=== PATIENT | female | born 1945 | race African-American/Black ===

== ENCOUNTER 2016-10-12 11:04 | Inpatient (IN) | payer MEDICARE ==
[2016-10-12] VITALS (7 sets, daily range): BP systolic 109–129; BP diastolic 70–87; PULSE 78–82; RESP 18–20; TEMP 97.6–97.9; O2SAT 96–98
[~2016-10-12] VITALS: Ht 167.6 cm; Wt 59.6 kg
[~2016-10-12 11:04] MED LIST: APIX5 PO; ASPI81 PO; BUME1TAB PO; CARV6.252 PO; CLOP75 PO; DIGO0.12 PO; KCL20 PO; LORA1TAB PO; SIMV40TA PO
--- NOTE | 2016-10-12 13:01 | PD ---
HPI Chief Complaint: Respiratory Symptoms Time Seen by Provider: 12:56 (Uzair Hawley) Time Seen by Provider: 12:42 (Bucky Obrien MD) Travel History International Travel<30 days: No Contact w/Intl Traveler<30days: No Traveled to known affect area: No (Uzair Hawley) International Travel<30 days: No Contact w/Intl Traveler<30days: No Traveled to known affect area: No (Bucky Obrien MD) History of Present Illness HPI 70-year-old female with a history of heart failure, COPD, previous LBBB that presents to the ED for evaluation of shortness of breath. Per patient about a week ago she developed a cough and cold like symptoms that went away. At that time patient was seen by her doctor and everything seemed to be better. Patient went again to see her primary care doctor today because after getting over the cold she developed shortness of breath for about a week. Per patient she has no inhalers and she does have a history of COPD. She states that she feels weak and tired. She states having some discomfort in her epigastric area as well as the left chest. She hasn't only to aspirin. She does take blood thinners for her heart. She states that she went to see Dr. Zamorano her PCP today who told her to come here to get evaluated. She denies any recent travel. Patient states compliance with her medications. She does have a history of hypertension. She states that the pain and discomfort as 2 out of 10 but her main concern is the shortness of breath. She states that even laying causes the shortness of breath. Per patient she feels like she has no energy. Denies any nausea or vomiting. She does state having some cough but no congestion. No ear pain. No sore throat. (Uzair Hawley) HPI This 12-year-old female who presents today with platelets of shortness breath. Patient was also seen by her primary care physician today who sent her here for further evaluation. The patient denies any chest pain chest pressure. She states she's felt she's had cold and flu symptoms. (Bucky Obrien MD) PFSH Past Medical History Hx Anticoagulant Therapy: Yes Asthma: Yes Blood Disorders: No Heart Rhythm Problems: Yes Cancer: No Cardiovascular Problems: Yes (2014) High Cholesterol: Yes Chemotherapy: No Chest Pain: No Congestive Heart Failure: Yes COPD: Yes Coronary Artery Disease: Yes Diabetes: Yes Diminished Hearing: No Endocrine: Yes Gastrointestinal Disorders: No Genitourinary: No Hypertension: Yes Implanted Vascular Access Dvce: Yes Musculoskeletal: No Neurologic: No Psychiatric: No Reproductive: Yes (BLEEDING) Respiratory: Yes (COPD, ASTHMA) Immunizations Current: Yes Radiation Therapy: No Sickle Cell Disease: No Sleep Apnea: No (Uzair Hawley) Past Surgical History Abdominal Surgery: Yes (cholecystectomy) AICD: Yes Appendectomy: Yes Arteriovenous Shunt: No Cardiac Surgery: Yes (DEFIBRILLATOR) Cholecystectomy: Yes Genitourinary Surgery: Yes (hysterectomy) Gynecologic Surgery: Yes (FLORINDA) Hysterectomy: Yes Insulin Pump: No Joint Replacement: No Pacemaker: Yes Thoracic Surgery: No Other Surgery: Yes (Uzair Hawley) Social History Alcohol Use: No Tobacco Use: No Substance Use: No (Uzair Hawley) Allergies-Medications (Allergen,Severity, Reaction): Coded Allergies: Aspirin (Verified Allergy, Mild, NAUSEA/VOMITING, 03/05/16) Reported Meds & Prescriptions Reported Meds & Active Scripts Active Reported Vitamin C (Ascorbic Acid) 500 Mg Tab 500 Mg PO DAILY Tizanidine (Tizanidine HCl) 4 Mg Cap 4 Mg PO BID PRN Restoril (Temazepam) 30 Mg Cap 30 Mg PO HS PRN Zocor (Simvastatin) 40 Mg Tab 40 Mg PO DAILY Multi Vitamin (Multiple Vitamin) 1 Tab Tab 1 Tab PO DAILY Metformin (Metformin HCl) 500 Mg Tab 500 Mg PO BID With meals Losartan (Losartan Potassium) 25 Mg Tab 25 Mg PO DAILY Iron (Ferrous Sulfate) 325 Mg Tab 325 Mg PO DAILY Take Glipizide 5 Mg Tab 5 Mg PO BID Take 30 minutes before a meal Eliquis (Apixaban) 5 Mg Tab 5 Mg PO BID Lanoxin (Digoxin) 0.125 Mg Tab 0.125 Mg PO DAILY Plavix (Clopidogrel Bisulfate) 75 Mg Tab 75 Mg PO DAILY Coreg (Carvedilol) 6.25 Mg Tab 6.25 Mg PO BID Bumetanide 1 Mg Tab 1 Mg PO BID Amiodarone (Amiodarone HCl) 200 Mg Tab 200 Mg PO DAILY (Bucky Obrien MD) Review of Systems General / Constitutional: No: Fever, Chills, Weight Gain, Weight Loss, Other Eyes: No: Diploplia, Blurred Vision, Photophobia, Drainage, Redness, Foreign Body Sensation, Pain, Tearing, Blind Spots, Visual changes, Blindness, Other HENT: No: Headaches, Vertigo, Lightheadedness, Sore Throat, Rhinitis, Rhinorrhea, Congestion, Nosebleed, Neck Stiffness, Neck Pain, Masses, Gingival Bleeding, Dental Difficulties, Ear Discharge, Earache, Other Cardiovascular: Positive: Chest Pain or Discomfort, No: Palpitations, Irregular Rhythm, Tachycardia, Diaphoresis, Syncope, Dyspnea on exertion, Varicosities, Edema, Cyanosis, Varicosities, Phlebitis, Claudication, Other Respiratory: Positive: Cough, Shortness of Breath, No: Wheezing, Sneezing, Orthopnea, Hemoptysis, Stridor, Night Sweats, Pleuritic Pain, Other Gastrointestinal: Positive: Abdominal Pain Genitourinary: No: Urgency, Frequency, Dysuria, Nocturia, Hematuria, Decreased Urinary Output, Oliguria, Hesitancy, Dribbling, Incontinence, Pelvic Pain, Flank Pain, Dyspareunia, Discharge, Dysmenorrhea, Menorrhagia, Metorrhagia, Vaginal Bleeding, Other Musculoskeletal: No: Myalgias, Arthralgias, Limited ROM, Weakness, Cramping, Edema, Pain, Atrophy, Other Skin: No Rash, No Itching, No Dryness, No Lumps, No Hives, No Change in Pigmentation, No Change in nails, No Alopecia, No Lesions, No Breast Lumps, No Breast Tenderness, No Breast Swelling, No Other Neurologic: No: Weakness, Dizziness, Syncope, Focal Abnormalities, Coordination Problem, Tremor, Ataxia, Headache, Change in Mentation, Slurred Speech, Paresthesia, Incontinence, Seizures, Sensory Disturbance, Other Psychiatric: No: Anxiety, Depression, Suicidal Ideations, Disorder of Thought, Mood Disorder, Substance Abuse, Homicidal Ideation, Other Endocrine: No: Heat Intolerance, Cold Intolerance, Polyuria, Polydipsia, Other Hematologic/Lymphatic: No: Easy Bruising, Lymph Node Enlargement, Other (Uzair Hawley) Physical Exam Narrative GENERAL: Well-nourished, well-developed patient in no apparent distress. SKIN: Warm and dry. HEAD: Atraumatic. Normocephalic. EYES: Pupils equal and round reactive to light and accommodation. No scleral icterus. No injection or drainage. ENT: No nasal bleeding or discharge. Mucous membranes pink and moist. TMs are clear with no sign of infection or perforation. No mastoid tenderness. Ear canals are intact bilaterally. No lymphadenopathy. Nostril mucosa is red and moist with clear mucus noted. No sinus tenderness to palpation noted. Tonsils are not enlarged or swollen. No ulvua Deviation. Tongue is midline. NECK: Trachea midline. No JVD. No meningeal signs noted CARDIOVASCULAR: Regular rate and rhythm. RESPIRATORY: No accessory muscle use. Clear to auscultation. Breath sounds equal bilaterally. GASTROINTESTINAL: Abdomen soft, non-tender, nondistended. Hepatic and splenic margins not palpable. MUSCULOSKELETAL: Extremities without clubbing, cyanosis, or edema. No obvious deformities. NEUROLOGICAL: Awake and alert. No obvious cranial nerve deficits. Motor grossly within normal limits. Five out of 5 muscle strength in the arms and legs. Normal speech. PSYCHIATRIC: Appropriate mood and affect; insight and judgment normal. (Uzair Hawley) Data Data Orders Electrocardiogram (10/12/16 12:41) Complete Blood Count With Diff (10/12/16 12:41) Comprehensive Metabolic Panel (10/12/16 12:41) Ckmb (Isoenzyme) Profile (10/12/16 12:41) Troponin I (10/12/16 12:41) B-Type Natriuretic Peptide (10/12/16 12:41) Prothrombin Time / Inr (Pt) (10/12/16 12:41) Act Partial Throm Time (Ptt) (10/12/16 12:41) Blood Culture (10/12/16 12:41) Urinalysis - C+S If Indicated (10/12/16 12:41) Digoxin (10/12/16 12:41) Chest, Single Ap (10/12/16 12:41) Iv Access Insert/Monitor (10/12/16 12:41) Ecg Monitoring (10/12/16 12:41) Oximetry (10/12/16 12:41) Lipase (10/12/16 12:41) Admit Order (Ed Use Only) (10/12/16 15:24) (Bucky Obrien MD) Labs Laboratory Tests Test 10/12/16 10/12/16 10/12/16 12:55 13:05 14:50 White Blood Count 8.1 TH/MM3 Red Blood Count 4.70 MIL/MM3 Hemoglobin 13.6 GM/DL Hematocrit 40.7 % Mean Corpuscular Volume 86.7 FL Mean Corpuscular Hemoglobin 29.0 PG Mean Corpuscular Hemoglobin 33.4 % Concent Red Cell Distribution Width 16.3 % Platelet Count 321 TH/MM3 Mean Platelet Volume 7.8 FL Neutrophils (%) (Auto) 59.1 % Lymphocytes (%) (Auto) 28.9 % Monocytes (%) (Auto) 8.6 % Eosinophils (%) (Auto) 2.3 % Basophils (%) (Auto) 1.1 % Neutrophils # (Auto) 4.8 TH/MM3 Lymphocytes # (Auto) 2.3 TH/MM3 Monocytes # (Auto) 0.7 TH/MM3 Eosinophils # (Auto) 0.2 TH/MM3 Basophils # (Auto) 0.1 TH/MM3 CBC Comment DIFF FINAL Differential Comment Prothrombin Time 14.2 SEC Prothromb Time International 1.3 RATIO Ratio Activated Partial 25.0 SEC Thromboplast Time B-Type Natriuretic Peptide 973 PG/ML Sodium Level 140 MEQ/L Potassium Level 3.4 MEQ/L Chloride Level 103 MEQ/L Carbon Dioxide Level 27.2 MEQ/L Anion Gap 10 MEQ/L Blood Urea Nitrogen 23 MG/DL Creatinine 1.33 MG/DL Estimat Glomerular Filtration 48 ML/MIN Rate Random Glucose 92 MG/DL Calcium Level 9.5 MG/DL Total Bilirubin 0.8 MG/DL Aspartate Amino Transf 15 U/L (AST/SGOT) Alanine Aminotransferase 15 U/L (ALT/SGPT) Alkaline Phosphatase 57 U/L Total Creatine Kinase 81 U/L Troponin I 0.92 NG/ML Total Protein 8.0 GM/DL Albumin 3.7 GM/DL Lipase 100 U/L Digoxin Level 1.3 NG/ML Urine Color YELLOW Urine Turbidity CLEAR Urine pH 6.5 Urine Specific [place] 1.008 Urine Protein 30 mg/dL Urine Glucose (UA) NEG mg/dL Urine Ketones NEG mg/dL Urine Occult Blood NEG Urine Nitrite NEG Urine Bilirubin NEG Urine Urobilinogen LESS THAN 2.0 MG/DL Urine Leukocyte Esterase NEG Urine RBC LESS THAN 1 /hpf Urine WBC LESS THAN 1 /hpf Urine Squamous Epithelial <1 /hpf Cells Urine Bacteria RARE /hpf Urine Hyaline Casts 10 /lpf Urine Mucus FEW /lpf Microscopic Urinalysis Comment CULT NOT INDICATED (Uzair Hawley) [facility] Medical Decision Making Medical Screen Exam Complete: Yes Emergency Medical Condition: Yes Medical Record Reviewed: Yes Interpretation(s) CBC & BMP Diagram 10/12/16 12:55 10/12/16 13:05 Troponin of 0.98 EKG show no sign of acute ischemic changes but known LBBB. LFTS WNL Coags WNL Differential Diagnosis Chest pain versus ACS versus kidney injury versus kidney disease versus COPD versus and STEMI versus CHF versus generalized weakness Narrative Course 70-year-old female that presents to the ED for evaluation of shortness of breath. Patient was properly examined and was found to have signs and symptoms consistent with appears to be shortness of breath. Unclear etiology at this time. She does have significant history for multiple illnesses. Recommendation of times for labs and imaging. Patient is agreeable with this. On my exam patient does not appear to have any wheezing or rales on exam. Her vitals appears to be within normal limits. Patient's initial EKG did show what appears to be an LBBB but she did brought Paper from her doctor's office that states that she's had an LBBB in the past as one of her diagnoses. Labs and imaging showed positive troponin as well as BNP higher than 500. At this time this appears to be cardiac in nature. Case was discussed in my attending who recommends speaking with medical affairs manager. Dr. Olson for cardiology for further health care recommends at the time nothing that he will come here and see the patient himself and then evaluate from there. I spoke with Dr. Mariano who agrees to admission to the [facility]. (Uzair Hawley) Medical Screen Exam Complete: Yes Emergency Medical Condition: Yes Differential Diagnosis CHF versus pneumonia versus upper respiratory infection versus ACS Narrative Course She was seen with Francisco Hawley PA-C. The patient comes in with shortness of breath. The patient was sent here by her primary care physician. Please note that her troponin was elevated at 0.95. Chest x-ray showed congestive heart failure. The patient was discussed with Dr. Huff, for healthcare hospice , who agreed to admit the patient to his service. Patient was also discussed with Dr. Akshat Olson who is gracious enough to come down and evaluate the patient. At this point the question is whether or not she had a non-ST elevation HI versus elevated troponin secondary to her congestive heart failure. Further evaluation and workup per admitting service. I, Dr. Obrien, have reviewed the advance practice practitioner's documentation and am in agreement, met with the patient face to face, made the diagnosis, and the medical decision making was done by me. *My assessment and Findings: Non-ST elevation myocardial infarction. Congestive heart failure. (Bucky Obrien MD) Procedures EKG Prior to Arrival: No (Uzair Hawley) Diagnosis Primary Impression: NSTEMI (non-ST elevated myocardial infarction) Additional Impression: Congestive heart failure Qualified Code: I50.23 - Acute on chronic systolic congestive heart failure Admitting Information Admitting Physician Requests: Admit (Uzair Hawley) Uzair Hawley Oct 12, 2016 13:01 Bucky Obrien MD Oct 17, 2016 08:24
[2016-10-12 13:25] LABS: AUTOMATED NEUTROPHIL # 4.8 TH/MM3 (1.8-7.7); BASOPHIL # 0.1 TH/MM3 (0-0.2); BASOPHIL % 1.1 % (0.0-2.0); EOSINOPHIL # 0.2 TH/MM3 (0-0.4); EOSINOPHIL % 2.3 % (0.0-4.0); HEMATOCRIT 40.7 % (35.0-46.0); HEMO FLAGS DIFF FINAL; LYMPH % 28.9 % (9.0-44.0); LYMPHOCYTE # 2.3 TH/MM3 (1.0-4.8); MEAN CELL VOLUME 86.7 FL (80.0-100.0); MEAN CORPUSCULAR HGB CONC 33.4 % (32.0-36.0); MONO % 8.6 % (0.0-8.0); NEUT % 59.1 % (16.0-70.0); PLATELET COUNT 321 TH/MM3 (150-450); RED CELL DISTRIBUTION WIDTH 16.3 % (11.6-17.2); WHITE BLOOD COUNT 8.1 TH/MM3 (4.0-11.0)
[2016-10-12 13:33] LABS: INTERNATIONAL NORMALIZED RATIO 1.3 RATIO; PROTHROMBIN TIME - PATIENT 14.2 SEC (9.8-11.6)
[2016-10-12] MEDS ORDERED: CARV6.25 PO (14:14)
[2016-10-12] MEDS ORDERED: METF500T PO (14:14)
[2016-10-12] MEDS ORDERED: VITA500T PO (14:14)
[2016-10-12] MEDS ORDERED: REST30CA PO (14:14)
[2016-10-12] MEDS ORDERED: BUME1TAB PO (14:14)
[2016-10-12] MEDS ORDERED: GLIP5TAB8 PO (14:14)
[2016-10-12] MEDS ORDERED: TIZA4CAP3 PO (14:14)
[2016-10-12] MEDS ORDERED: AMIO200T PO (14:14)
[2016-10-12] MEDS ORDERED: LANO0.1212 PO (14:14)
[2016-10-12] MEDS ORDERED: FERR1TAB36 PO (14:14)
[2016-10-12] MEDS ORDERED: LOSA25TA PO (14:14)
[2016-10-12] MEDS ORDERED: MULT-135 PO (14:14)
[2016-10-12] MEDS ORDERED: PLAV75TA29 PO (14:14)
[2016-10-12] MEDS ORDERED: APIX5TAB PO (14:14)
[2016-10-12] MEDS ORDERED: ZOCO40TA PO (14:14)
[2016-10-12 14:32] LABS: ANION GAP 10 MEQ/L (5-15); AST (GOT) 15 U/L (15-37); BICARBONATE 27.2 MEQ/L (21.0-32.0); BLOOD UREA NITROGEN 23 MG/DL (7-18); CHLORIDE 103 MEQ/L (98-107); GLOMERULAR FILTRATION RATE 48 ML/MIN (>89); POTASSIUM 3.4 MEQ/L (3.5-5.1); SODIUM (NA) 140 MEQ/L (136-145)
--- NOTE | 2016-10-12 14:35 | RADRPT ---
EXAM DATE/TIME: 10/12/2016 13:16 [place] COMPARISON: CHEST PA & LAT, December 15, 2015, 19:44. CHEST SINGLE AP, May 28, 2015, 22:09. INDICATIONS: Short of breath. Chest discomfort. MEDICAL HISTORY: Chronic obstructive pulmonary disease. Asthma. SURGICAL HISTORY: Pacemaker. ENCOUNTER: Initial ACUITY: 1 day PAIN SCORE: 1/10 LOCATION: Bilateral chest FINDINGS: The heart remains enlarged with prominence of the left atrial appendage. A left subclavian dual lead pacemaker has its tips in the right atrium and the right ventricle. There is no pneumothorax. The pulmonary vascular pattern is normal. The lungs are clear. CONCLUSION: 1. Stable marked enlargement of the heart with prominence of the left atrial appendage. 2. No acute focal pulmonary infiltrate or pulmonary vascular congestion. Javier Hickey MD on October 12, 2016 at 14:17 Board Certified Radiologist. This report was verified electronically.
[2016-10-12 14:47] LABS: ALKALINE PHOSPHATASE 57 U/L (45-117); ALT (GPT) 15 U/L (10-53); DIGOXIN 1.3 NG/ML (0.8-2.0); TOTAL BILIRUBIN ADULT 0.8 MG/DL (0.2-1.0)
[2016-10-12 15:00] LABS: CREATINE KINASE 81 U/L (26-192)
[2016-10-12 15:19] LABS: BACTERIA, URINE RARE /hpf; BLOOD, URINE NEG (NEG); COMMENT (UR) CULT NOT INDICATED; CULTURE IF INDICATED CULT NOT INDICATED; GLUCOSE,URINE NEG (NEG); HYALINE CAST, URINE 10 /lpf (RARE); KETONE, URINE NEG (NEG); MUCUS URINE FEW /lpf (OCC); NITRITE,URINE NEG (NEG); PH, URINE 6.5 (5.0-8.5); SQUAMOUS EPITHELIAL CELL URINE <1 /hpf (0-5); URINE COLOR YELLOW (YELLW/STRAW)
--- NOTE | 2016-10-12 18:10 | HHI.HP ---
HPI Service [facility] Hospitalists Primary Care Physician Non-Staff Admission Diagnosis NSTEMI, CHF Travel History International Travel<30 Days: No Contact w/Intl Traveler <30 Da: No Traveled to Known Affected Are: No History of Present Illness Pt is 70 yo with cad, chf, dm2, ckd 3, copd presents with general weakness/ fatigue and some sob. Apparently had recent cold and followed by her pcp. When she had persistent sx' s was referred to ED today. Her troponin was elevated and cardiology consulted from ED and pt admitted for nstemi. pt denies any cp presently and is comfortably with family at bedside. denies any diaphoresis or n/v. Review of Systems Other weak/fatigued no energy Past Family Social History Past Medical History cad bivaicd LBBB chf. systolic. echo 12/07. ef 20-25% htn hyperlipidemia dm 2 ckd 3 afib [place] appe hysterectomy Reported Medications Vitamin C (Ascorbic Acid) 500 Mg Tab 500 Mg PO DAILY Tizanidine (Tizanidine HCl) 4 Mg Cap 4 Mg PO BID PRN Restoril (Temazepam) 30 Mg Cap 30 Mg PO HS PRN Zocor (Simvastatin) 40 Mg Tab 40 Mg PO DAILY Multi Vitamin (Multiple Vitamin) 1 Tab Tab 1 Tab PO DAILY Metformin (Metformin HCl) 500 Mg Tab 500 Mg PO BID With meals Losartan (Losartan Potassium) 25 Mg Tab 25 Mg PO DAILY Iron (Ferrous Sulfate) 325 Mg Tab 325 Mg PO DAILY Take Glipizide 5 Mg Tab 5 Mg PO BID Take 30 minutes before a meal Eliquis (Apixaban) 5 Mg Tab 5 Mg PO BID Lanoxin (Digoxin) 0.125 Mg Tab 0.125 Mg PO DAILY Plavix (Clopidogrel Bisulfate) 75 Mg Tab 75 Mg PO DAILY Coreg (Carvedilol) 6.25 Mg Tab 6.25 Mg PO BID Bumetanide 1 Mg Tab 1 Mg PO BID Amiodarone (Amiodarone HCl) 200 Mg Tab 200 Mg PO DAILY Allergies: Coded Allergies: Aspirin (Verified Allergy, Mild, NAUSEA/VOMITING, 03/05/16) Family History nc Social History no tob/etoh Physical Exam Vital Signs heart reg lung cta abd s/nt ext no edema Vital Signs Date Time Temp Pulse Resp B/P Pulse Ox O2 Delivery O2 Flow Rate FiO2 10/12/16 15:00 78 18 118/74 97 Room Air 10/12/16 13:27 69 22 95 Room Air 10/12/16 13:26 98 Room Air 10/12/16 13:00 80 18 109/70 97 Room Air 10/12/16 11:05 97.6 82 18 123/76 97 Room Air Laboratory Laboratory Tests Test 10/12/16 10/12/16 10/12/16 12:55 13:05 14:50 White Blood Count 8.1 Red Blood Count 4.70 Hemoglobin 13.6 Hematocrit 40.7 Mean Corpuscular Volume 86.7 Mean Corpuscular Hemoglobin 29.0 Mean Corpuscular Hemoglobin 33.4 Concent Red Cell Distribution Width 16.3 Platelet Count 321 Mean Platelet Volume 7.8 Neutrophils (%) (Auto) 59.1 Lymphocytes (%) (Auto) 28.9 Monocytes (%) (Auto) 8.6 Eosinophils (%) (Auto) 2.3 Basophils (%) (Auto) 1.1 Neutrophils # (Auto) 4.8 Lymphocytes # (Auto) 2.3 Monocytes # (Auto) 0.7 Eosinophils # (Auto) 0.2 Basophils # (Auto) 0.1 CBC Comment DIFF FINAL Differential Comment Prothrombin Time 14.2 Prothromb Time International 1.3 Ratio Activated Partial 25.0 Thromboplast Time B-Type Natriuretic Peptide 973 Sodium Level 140 Potassium Level 3.4 Chloride Level 103 Carbon Dioxide Level 27.2 Anion Gap 10 Blood Urea Nitrogen 23 Creatinine 1.33 Estimat Glomerular Filtration 48 Rate Random Glucose 92 Calcium Level 9.5 Total Bilirubin 0.8 Aspartate Amino Transf 15 (AST/SGOT) Alanine Aminotransferase 15 (ALT/SGPT) Alkaline Phosphatase 57 Total Creatine Kinase 81 Troponin I 0.92 Total Protein 8.0 Albumin 3.7 Lipase 100 Digoxin Level 1.3 Urine Color YELLOW Urine Turbidity CLEAR Urine pH 6.5 Urine Specific [place] 1.008 Urine Protein 30 Urine Glucose (UA) NEG Urine Ketones NEG Urine Occult Blood NEG Urine Nitrite NEG Urine Bilirubin NEG Urine Urobilinogen LESS THAN 2.0 Urine Leukocyte Esterase NEG Urine RBC LESS THAN 1 Urine WBC LESS THAN 1 Urine Squamous Epithelial <1 Cells Urine Bacteria RARE Urine Hyaline Casts 10 Urine Mucus FEW Microscopic Urinalysis Comment CULT NOT INDICATED Date/Time Procedure Status Source Growth 10/12/16 13:00 Aerobic Blood Culture Received Blood Peripheral Pending 10/12/16 13:00 Anaerobic Blood Culture Received Blood Peripheral Pending Result Diagram: 10/12/16 1255 10/12/16 1305 Assessment and Plan Problem List: (1) NSTEMI (non-ST elevated myocardial infarction) Status: Acute Plan: Pt is 70 yo with cad/systolic chf/bivaicd/afib/copd/dm2 who presented with sob and persistent weakness. Troponin elevated in ED and nstemi questioned Also her severe CM is being questioned for her sx's Cardiology consulted cont current cardiac meds telemetry and ce's tonight will await ischemic w/up decisions per cardiology. dvt prophylaxis. npo after mn for any possible testing. (2) Congestive heart failure Status: Chronic Plan: systolic chf. stable. (3) Afib Status: Chronic Plan: stable (4) CKD (chronic kidney disease) stage 3, GFR 30-59 ml/min Status: Chronic Plan: stable (5) HTN (hypertension) Status: Chronic Plan: home meds (6) DM2 (diabetes mellitus, type 2) Status: Chronic Plan: ssi hold oha's (7) COPD (chronic obstructive pulmonary disease) Status: Chronic Plan: stable. Physician Certification 2 Midnight Certification Type: Admission for Inpatient Services Order for Inpatient Services 3The services are ordered in accordance with Medicare regulations or non- Medicare payer requirements, as applicable. In the case of services not specified as inpatient-only, they are appropriately provided as inpatient services in accordance with the 2-midnight benchmark. Estimated LOS (days): 3 3 days is the estimated time the patient will need to remain in the hospital, assuming treatment plan goals are met and no additional complications. Post-Hospital Plan: Home Problem Qualifiers (1) Congestive heart failure: Qualified Code: I50.23 - Acute on chronic systolic congestive heart failure Julian Huff MD Oct 12, 2016 18:10
[2016-10-12] MEDS ORDERED: GLUCAGON 1 MG/ML VIAL OTHER PRN (18:45)
[2016-10-12] MEDS ORDERED: DEXTROSE 50% IN WATER 50 ML VIAL(D50) IV PUSH PRN (18:45)
[2016-10-12] MEDS ORDERED: POTASSIUM CHLORIDE 20 MEQ CONTROLLED RELEASE TAB PO ONE (19:15)
--- NOTE | 2016-10-12 19:16 | MB ---
cc: THEE RUDD MD DATE OF CONSULTATION 10/12/2016 HISTORY OF THE PRESENT ILLNESS A 70-year-old woman who is was admitted to the hospital with fatigue and tiredness. She has a history of ischemic cardiomyopathy and underwent cardiac catheterization in November of 2015. 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 Because of severe ectasia and an area of stenosis with diagonal branch involved, medical management was elected. She has done fairly well since that time. Her EF at that time was 15-20% and she has undergone an AICD implantation. In any event over the past week she has become extremely fatigued and tired such that she has trouble getting out of bed. She denies any real shortness of breath and no orthopnea or PND has been present. She has had problems with chest discomfort which comes on approximately once a week and has done so for the past several months. This generally lasts 3-5 minutes. It is relieved spontaneously. No dizziness or lightheadedness was present. She has had no problems with palpitations or rapid heartbeat. MEDICATIONS She is on an extensive medical regimen which includes: 1. Carvedilol 6.25 mg twice a day. 2. Digoxin 0.25 mg daily. 3. Plavix 75 mg daily. 4. Bumex 1 mg twice daily. 5. Amiodarone 200 mg daily. 6. Losartan 25 mg daily. 7. Metformin 500 mg twice a day. 8. Simvastatin 40 mg daily. 9. Tizanidine 4 mg on an as-needed basis. 10. Restoril. 11. Vitamin C. ALLERGIES ARE TO ASPIRIN WHICH COMPLAINS OF NAUSEA AND VOMITING. PHYSICAL EXAMINATION GENERAL: On physical examination she is awake and alert and is very pleasant. VITAL SIGNS: Her blood pressure is 120/76. Pulse is 80 and regular and appears to be paced. NECK: There is no neck vein distention. LUNGS: Clear. CARDIOVASCULAR: Examination reveals a regular rate and rhythm. No murmur or gallop is noted. ABDOMEN: Soft without tenderness. EXTREMITIES: Reveal no edema. ASSESSMENT The patient has rather significant fatigue, likely this is secondary to her severe cardiomyopathy. At this point in time she appears to be paced and we will get an interrogation to determine how often she is being paced. She may benefit from cardiac resynchronization therapy pending the results of her echo. If that is not helpful then we will consider stopping her Coreg to see if that helps with her fatigue. We will follow along with you. MD ESEQUIEL Gasca/KK /3:57 PM /7:04 PM
[2016-10-12] MEDS: TEMAZEPAM 15 MG CAP PO PRN (23:03)
[2016-10-12] MEDS: APIXABAN 5 MG TABLET PO SCH (23:04)
[2016-10-12] MEDS: BUMETANIDE 1 MG TAB PO SCH (23:04)
[2016-10-12] MEDS: CARVEDILOL 6.25 MG TAB PO SCH (23:04)
[2016-10-12] MEDS: INSULIN ASPART SUPPLEMENTAL SCALE SQ SCH (23:19)
[2016-10-13] VITALS (25 sets, daily range): BP systolic 99–118; BP diastolic 66–82; PULSE 78–98; RESP 18–20; TEMP 96.1–98.3; O2SAT 94–97
[2016-10-13] MEDS: INSULIN ASPART SUPPLEMENTAL SCALE SQ SCH ×4 (06:36→20:42)
--- NOTE | 2016-10-13 07:40 | PD.CARD.PN ---
Subjective Subjective Remarks No change. Pacer interrogation shows a flutter. Have discussed with Dr. Velazquez regarding possible ablation Objective Vital Signs / I&O Vital Signs Date Time Temp Pulse Resp B/P Pulse Ox O2 Delivery O2 Flow Rate FiO2 10/13/16 03:00 96.1 80 20 99/72 96 10/13/16 00:00 97.3 80 20 118/82 95 10/12/16 22:00 97.9 80 20 129/87 96 10/12/16 21:42 118/72 95 10/12/16 15:00 78 18 118/74 97 Room Air 10/12/16 13:27 69 22 95 Room Air 10/12/16 13:26 98 Room Air 10/12/16 13:00 80 18 109/70 97 Room Air 10/12/16 11:05 97.6 82 18 123/76 97 Room Air I/O 10/12/16 10/12/16 10/12/16 10/13/16 10/13/16 10/13/16 07:00 15:00 23:00 07:00 15:00 23:00 Intake Total 240 ml Output Total 300 ml Balance -60 ml Intake Oral 240 ml Output Urine Total 300 ml Laboratory Laboratory Tests Test 10/12/16 10/12/16 10/12/16 10/12/16 12:55 13:05 14:50 16:10 White Blood Count 8.1 TH/MM3 Red Blood Count 4.70 MIL/MM3 Hemoglobin 13.6 GM/DL Hematocrit 40.7 % Mean Corpuscular Volume 86.7 FL Mean Corpuscular Hemoglobin 29.0 PG Mean Corpuscular Hemoglobin 33.4 % Concent Red Cell Distribution Width 16.3 % Platelet Count 321 TH/MM3 Mean Platelet Volume 7.8 FL Neutrophils (%) (Auto) 59.1 % Lymphocytes (%) (Auto) 28.9 % Monocytes (%) (Auto) 8.6 % Eosinophils (%) (Auto) 2.3 % Basophils (%) (Auto) 1.1 % Neutrophils # (Auto) 4.8 TH/MM3 Lymphocytes # (Auto) 2.3 TH/MM3 Monocytes # (Auto) 0.7 TH/MM3 Eosinophils # (Auto) 0.2 TH/MM3 Basophils # (Auto) 0.1 TH/MM3 CBC Comment DIFF FINAL Differential Comment Prothrombin Time 14.2 SEC Prothromb Time International 1.3 RATIO Ratio Activated Partial 25.0 SEC Thromboplast Time B-Type Natriuretic Peptide 973 PG/ML Sodium Level 140 MEQ/L Potassium Level 3.4 MEQ/L Chloride Level 103 MEQ/L Carbon Dioxide Level 27.2 MEQ/L Anion Gap 10 MEQ/L Blood Urea Nitrogen 23 MG/DL Creatinine 1.33 MG/DL Estimat Glomerular Filtration 48 ML/MIN Rate Random Glucose 92 MG/DL Calcium Level 9.5 MG/DL Total Bilirubin 0.8 MG/DL Aspartate Amino Transf 15 U/L (AST/SGOT) Alanine Aminotransferase 15 U/L (ALT/SGPT) Alkaline Phosphatase 57 U/L Total Creatine Kinase 81 U/L 77 U/L Troponin I 0.92 NG/ML 0.92 NG/ML Total Protein 8.0 GM/DL Albumin 3.7 GM/DL Lipase 100 U/L Digoxin Level 1.3 NG/ML Urine Color YELLOW Urine Turbidity CLEAR Urine pH 6.5 Urine Specific [place] 1.008 Urine Protein 30 mg/dL Urine Glucose (UA) NEG mg/dL Urine Ketones NEG mg/dL Urine Occult Blood NEG Urine Nitrite NEG Urine Bilirubin NEG Urine Urobilinogen LESS THAN 2.0 MG/DL Urine Leukocyte Esterase NEG Urine RBC LESS THAN 1 /hpf Urine WBC LESS THAN 1 /hpf Urine Squamous Epithelial <1 /hpf Cells Urine Bacteria RARE /hpf Urine Hyaline Casts 10 /lpf Urine Mucus FEW /lpf Microscopic Urinalysis Comment CULT NOT INDICATED Test 10/13/16 00:14 Total Creatine Kinase 68 U/L Troponin I 0.92 NG/ML Akshat Olson MD Oct 13, 2016 07:40
--- NOTE | 2016-10-13 08:52 | HHI.PR ---
Subjective Remarks doing ok Objective Vitals heart reg lung cta abd s/nt ext no edema Vital Signs Date Time Temp Pulse Resp B/P Pulse Ox O2 Delivery O2 Flow Rate FiO2 10/13/16 07:15 97.6 80 18 105/75 95 10/13/16 06:00 80 10/13/16 05:00 80 10/13/16 04:00 80 10/13/16 03:00 96.1 80 20 99/72 96 10/13/16 03:00 82 10/13/16 02:00 80 10/13/16 01:00 78 10/13/16 00:00 97.3 80 20 118/82 95 10/13/16 00:00 78 10/12/16 23:00 80 10/12/16 22:00 97.9 80 20 129/87 96 10/12/16 22:00 80 10/12/16 21:42 118/72 95 10/12/16 15:00 78 18 118/74 97 Room Air 10/12/16 13:27 69 22 95 Room Air 10/12/16 13:26 98 Room Air 10/12/16 13:00 80 18 109/70 97 Room Air 10/12/16 11:05 97.6 82 18 123/76 97 Room Air 10/12/16 10/12/16 10/13/16 15:00 23:00 07:00 Intake Total 240 ml Output Total 300 ml Balance -60 ml Intake Oral 240 ml Output Urine Total 300 ml Result Diagram: 10/12/16 1255 10/12/16 1305 A/P Problem List: (1) Atrial flutter Status: Acute Plan: Pt is 70 yo with cad/systolic chf/bivaicd/afib/copd/dm2 who presented with sob and persistent weakness. Troponin elevated in ED and nstemi questioned. but troponin flat Also her severe CM is being questioned for her sx's interogation of bivaicd shows aflutter spoke to Dr Olson...he called Dr Velazquez to [facility] today for possible eps and ablation. cont current cardiac meds telemetry will await ischemic w/up decisions per cardiology. dvt prophylaxis. (2) Congestive heart failure Status: Chronic Plan: systolic chf. stable. (3) Afib Status: Chronic Plan: stable (4) CKD (chronic kidney disease) stage 3, GFR 30-59 ml/min Status: Chronic Plan: stable (5) HTN (hypertension) Status: Chronic Plan: home meds (6) DM2 (diabetes mellitus, type 2) Status: Chronic Plan: ssi hold oha's (7) COPD (chronic obstructive pulmonary disease) Status: Chronic Plan: stable. Problem Qualifiers (1) Congestive heart failure: Qualified Code: I50.23 - Acute on chronic systolic congestive heart failure Julian Huff MD Oct 13, 2016 08:52
[2016-10-13] MEDS: APIXABAN 5 MG TABLET PO SCH (09:40)
[2016-10-13] MEDS: CARVEDILOL 6.25 MG TAB PO SCH ×2 (09:40→20:42)
[2016-10-13] MEDS: PRAVASTATIN SOD 80 MG TAB PO SCH (09:40)
[2016-10-13] MEDS: DIGOXIN 0.125 MG TAB PO SCH (09:40)
[2016-10-13] MEDS: FERROUS SULFATE 325 MG (65 MG ELEMENTAL IRON) TAB PO SCH (09:40)
[2016-10-13] MEDS: LOSARTAN 25 MG TAB PO SCH (09:40)
[2016-10-13] MEDS: BUMETANIDE 1 MG TAB PO SCH ×2 (09:40→17:12)
[2016-10-13] MEDS: CLOPIDOGREL 75 MG TAB PO SCH (09:41)
[2016-10-13] MEDS: MULTIVITAMIN TAB PO SCH (09:41)
[2016-10-13] MEDS: AMIODARONE 200 MG TAB PO SCH (09:41)
--- NOTE | 2016-10-13 10:09 | EKG ---
Date Performed: 10/12/2016 Time Performed: 18:24:55 PTAGE: 70 years EKG: ELECTRONIC VENTRICULAR PACEMAKER ABNORMAL RHYTHM ECG PREVIOUS TRACING : 10/12/2016 12.50 DOCTOR: Tip Mendoza Interpretating Date/Time 10/13/2016 10:09:05
--- NOTE | 2016-10-13 11:09 | EKG ---
Date Performed: 10/12/2016 Time Performed: 12:50:19 PTAGE: 70 years EKG: SINUS TACHYCARDIA WITH SHORT FL INTERVAL WITH FREQUENT VENTRICULAR PREMATURE COMPLEXES, POS SIBLE ATRIAL FLUTTER LEFT BUNDLE BRANCH BLOCK MARKED ST ELEVATION, CONSIDER ACUTE INJURY PATTERN PREVIOUS TRACING : 12/15/2015 18.55 DOCTOR: Tip Mendoza Interpretating Date/Time 10/13/2016 11:07:54
[2016-10-13] MEDS ORDERED: LORazepam 1 MG TAB SL SCH (18:45)
--- NOTE | 2016-10-13 20:32 | MB ---
cc: SVETA ARMANDO M.D. DATE OF CONSULTATION: 10/13/2016 REASON FOR CONSULTATION: Atrial flutter, congestive heart failure HISTORY OF PRESENT ILLNESS: Ms. Salinas is a 70 year-old -[place] female with history of cardiomyopathy, end-stage heart disease, CHF class III, ejection fraction 15 to 28%. Biventricular pacer defibrillator implanted on optimal medical treatment, admitted due to congestive heart failure. Her condition worsened while in atrial flutter. I was consulted fore evaluation and management. The chart was reviewed. The patient was evaluated. ALLERGIES Aspirin. SOCIAL HISTORY: Negative for smoking and drinking. FAMILY HISTORY Noncontributory to her current medical condition. MEDICATIONS 1. Eliquis 2. Coreg. 3. Digoxin 4. Plavix 5. Bumex 6. Amiodarone 7. Losartan 8. Metformin 9. Zocor. 10. Restoril. REVIEW OF SYSTEMS She refers shortness of breath on minimal activity. No chest pain or discomfort. PHYSICAL EXAMINATION: Alert, fully oriented, plasant, in bed. VITAL SIGNS: Blood pressure is 111/80, pulse 87, respiratory rate 18. Lungs: Ventilated. Cardiovascular: S1-S2, regular. Abdomen: Soft, no masses. Extremities: No edema. Electrocardiogram Bi-V pacing, atrial flutter. LABORATORY DATA Hemoglobin 13.6, white blood cell 8.1, potassium 3.4, creatinine is 1.33. Troponin is 0.92. ASSESSMENT AND RECOMMENDATIONS Ms. Salinas has atrial flutter. She is very symptomatic. She has non ST elevation myocardial infarction. She is stable at this point. She is not a candidate for revascularization. She has atrial flutter. The loss of the atrial kick, heart failure worsened. At this point the best approach is to proceed with ablation. She just had episode of non ST elevation WI. That was yesterday. Troponin is still high. I will keep her on the current medical management. I will observe her for the next 24 to 48 hours. If stable, I would proceed with ablation on Tuesday or Tuesday. The case was discussed with patient and family. Sveta Armando MD /JENNIFER /6:50 PM /8:13 PM
[2016-10-14] VITALS (21 sets, daily range): BP systolic 98–110; BP diastolic 63–72; PULSE 50–81; RESP 16–18; TEMP 97.4–98.3; O2SAT 95–97
[2016-10-14] MEDS: TEMAZEPAM 15 MG CAP PO PRN (00:09)
[2016-10-14 05:45] LABS: BICARBONATE 26.7 MEQ/L (21.0-32.0); POTASSIUM 3.5 MEQ/L (3.5-5.1)
[2016-10-14] MEDS: INSULIN ASPART SUPPLEMENTAL SCALE SQ SCH ×4 (06:19→21:00)
--- NOTE | 2016-10-14 07:02 | PD.CARD.PN ---
Subjective Subjective Remarks Feels about the same. No chest pain or dyspnea. Appreciate Dr. Velazquez's help. Feel toponin elevaton demand mediated. Hopefully proceed with ablation burke Objective Vital Signs / I&O Vital Signs Date Time Temp Pulse Resp B/P Pulse Ox O2 Delivery O2 Flow Rate FiO2 10/14/16 06:00 76 10/14/16 05:00 80 10/14/16 04:00 80 10/14/16 03:00 98.3 80 18 110/65 97 10/14/16 03:00 80 10/14/16 02:00 81 10/14/16 01:00 80 10/14/16 00:00 98.2 80 18 104/69 97 10/14/16 00:00 80 10/13/16 23:00 84 10/13/16 22:00 88 10/13/16 21:00 93 10/13/16 20:00 81 10/13/16 20:00 98.3 80 18 105/66 96 10/13/16 19:00 91 10/13/16 18:00 80 10/13/16 17:00 87 10/13/16 16:00 80 10/13/16 15:00 98.1 80 18 111/80 97 10/13/16 15:00 80 10/13/16 14:00 80 10/13/16 13:00 80 10/13/16 12:00 80 10/13/16 11:00 97.9 98 18 108/74 94 10/13/16 11:00 80 10/13/16 10:00 82 10/13/16 09:00 80 10/13/16 08:00 80 10/13/16 07:15 97.6 80 18 105/75 95 I/O 10/13/16 10/13/16 10/13/16 10/14/16 10/14/16 10/14/16 07:00 15:00 23:00 07:00 15:00 23:00 Intake Total 240 ml 240 ml 0 ml Output Total 300 ml Balance -60 ml 240 ml 0 ml Intake Oral 240 ml 240 ml 0 ml Output Urine Total 300 ml # Voids 1 3 # Bowel Movements 0 Physical Exam Lungs clear RRR no murmur Laboratory Laboratory Tests Test 10/14/16 04:45 Sodium Level 141 MEQ/L Potassium Level 3.5 MEQ/L Chloride Level 104 MEQ/L Carbon Dioxide Level 26.7 MEQ/L Anion Gap 10 MEQ/L Blood Urea Nitrogen 24 MG/DL Creatinine 1.32 MG/DL Estimat Glomerular Filtration 48 ML/MIN Rate Random Glucose 135 MG/DL Calcium Level 9.3 MG/DL Magnesium Level 2.0 MG/DL Assessment and Plan Assessment and Plan A sabove await ablation attempt Akshat Olson MD Oct 14, 2016 07:02
--- NOTE | 2016-10-14 08:14 | HHI.PR ---
Subjective Remarks doing ok. no complaints Objective Vitals heart reg lung cta abd s/nt ext no edema Vital Signs Date Time Temp Pulse Resp B/P Pulse Ox O2 Delivery O2 Flow Rate FiO2 10/14/16 07:00 97.8 80 18 102/72 97 10/14/16 06:00 76 10/14/16 05:00 80 10/14/16 04:00 80 10/14/16 03:00 98.3 80 18 110/65 97 10/14/16 03:00 80 10/14/16 02:00 81 10/14/16 01:00 80 10/14/16 00:00 98.2 80 18 104/69 97 10/14/16 00:00 80 10/13/16 23:00 84 10/13/16 22:00 88 10/13/16 21:00 93 10/13/16 20:00 81 10/13/16 20:00 98.3 80 18 105/66 96 10/13/16 19:00 91 10/13/16 18:00 80 10/13/16 17:00 87 10/13/16 16:00 80 10/13/16 15:00 98.1 80 18 111/80 97 10/13/16 15:00 80 10/13/16 14:00 80 10/13/16 13:00 80 10/13/16 12:00 80 10/13/16 11:00 97.9 98 18 108/74 94 10/13/16 11:00 80 10/13/16 10:00 82 10/13/16 09:00 80 10/13/16 10/13/16 10/14/16 15:00 23:00 07:00 Intake Total 240 ml 0 ml Balance 240 ml 0 ml Intake Oral 240 ml 0 ml # Voids 1 3 # Bowel Movements 0 Result Diagram: 10/12/16 1255 10/14/16 0445 A/P Problem List: (1) Atrial flutter Status: Acute Plan: Pt is 70 yo with cad/systolic chf/bivaicd/afib/copd/dm2 who presented with sob and persistent weakness. Troponin elevated in ED and nstemi questioned. but troponin flat and not felt to represent nstemi. Also her severe CM is being questioned for her sx's interogation of bivaicd shows aflutter spoke to Dr Olson/Caroline...awaite eps/ablation... anticoagulation on hold cont current cardiac meds telemetry dvt prophylaxis. (2) Congestive heart failure Status: Chronic Plan: systolic chf. stable. (3) Afib Status: Chronic Plan: stable (4) CKD (chronic kidney disease) stage 3, GFR 30-59 ml/min Status: Chronic Plan: stable (5) HTN (hypertension) Status: Chronic Plan: home meds (6) DM2 (diabetes mellitus, type 2) Status: Chronic Plan: ssi hold oha's (7) COPD (chronic obstructive pulmonary disease) Status: Chronic Plan: stable. Problem Qualifiers (1) Congestive heart failure: Qualified Code: I50.23 - Acute on chronic systolic congestive heart failure Julian Huff MD Oct 14, 2016 08:14
[2016-10-14] MEDS ORDERED: POTASSIUM CHLORIDE 20 MEQ CONTROLLED RELEASE TAB PO ONE (08:15)
[2016-10-14] MEDS: CLOPIDOGREL 75 MG TAB PO SCH ×2 (09:00→09:03)
[2016-10-14] MEDS: CARVEDILOL 6.25 MG TAB PO SCH ×2 (09:03→21:40)
[2016-10-14] MEDS: DIGOXIN 0.125 MG TAB PO SCH (09:03)
[2016-10-14] MEDS: PRAVASTATIN SOD 80 MG TAB PO SCH (09:03)
[2016-10-14] MEDS: BUMETANIDE 1 MG TAB PO SCH ×2 (09:03→16:56)
[2016-10-14] MEDS: MULTIVITAMIN TAB PO SCH (09:03)
[2016-10-14] MEDS: AMIODARONE 200 MG TAB PO SCH (09:04)
[2016-10-14] MEDS: FERROUS SULFATE 325 MG (65 MG ELEMENTAL IRON) TAB PO SCH (09:04)
[2016-10-14] MEDS: LOSARTAN 25 MG TAB PO SCH (09:04)
--- NOTE | 2016-10-14 10:17 | HHI.PR ---
Subjective Remarks Some SOB Objective Vital Signs Date Time Temp Pulse Resp B/P Pulse Ox O2 Delivery O2 Flow Rate FiO2 10/14/16 08:00 74 10/14/16 07:00 80 10/14/16 07:00 97.8 80 18 102/72 97 10/14/16 06:00 76 10/14/16 05:00 80 10/14/16 04:00 80 10/14/16 03:00 98.3 80 18 110/65 97 10/14/16 03:00 80 10/14/16 02:00 81 10/14/16 01:00 80 10/14/16 00:00 98.2 80 18 104/69 97 10/14/16 00:00 80 10/13/16 23:00 84 10/13/16 22:00 88 10/13/16 21:00 93 10/13/16 20:00 81 10/13/16 20:00 98.3 80 18 105/66 96 10/13/16 19:00 91 10/13/16 18:00 80 10/13/16 17:00 87 10/13/16 16:00 80 10/13/16 15:00 98.1 80 18 111/80 97 10/13/16 15:00 80 10/13/16 14:00 80 10/13/16 13:00 80 10/13/16 12:00 80 10/13/16 11:00 97.9 98 18 108/74 94 10/13/16 11:00 80 I/O 10/13/16 10/13/16 10/13/16 10/14/16 10/14/16 10/14/16 07:00 15:00 23:00 07:00 15:00 23:00 Intake Total 240 ml 240 ml 0 ml Output Total 300 ml Balance -60 ml 240 ml 0 ml Intake Oral 240 ml 240 ml 0 ml Output Urine Total 300 ml # Voids 1 3 # Bowel Movements 0 Result Diagram: 10/12/16 1255 10/14/16 0445 Imaging Alert, fully oriented Lungs: ventilated Heart: S1, S2 regular Abdomen: soft, no mass Ext: no edema Last Impressions Chest X-Ray 10/12/16 1241 Signed Impressions: Service Date/Time: Wednesday, October 12, 2016 13:16 - CONCLUSION: 1. Stable marked enlargement of the heart with prominence of the left atrial appendage. 2. No acute focal pulmonary infiltrate or pulmonary vascular congestion. Javier Hickey MD Current Medications Medications (Trade) Dose Ordered Sig/Gisela Route Start Time Stop Time Status Last Admin (Cordarone) 200 mg DAILY PO 10/13/16 09:00 10/14/16 09:04 (Eliquis) 5 mg BID PO 10/12/16 21:00 Hold 10/13/16 09:40 (Bumetanide) 1 mg BID@09,18 PO 10/12/16 18:32 10/14/16 09:03 (Coreg) 6.25 mg BID PO 10/12/16 21:00 10/14/16 09:03 (Plavix) 75 mg DAILY PO 10/13/16 09:00 10/13/16 09:41 (Lanoxin) 0.125 mg DAILY PO 10/13/16 09:00 10/14/16 09:03 (Ferrous Sulfate) 325 mg DAILY PO 10/13/16 09:00 10/14/16 09:04 (Cozaar) 25 mg DAILY PO 10/13/16 09:00 10/14/16 09:04 (Theragran) 1 tab DAILY PO 10/13/16 09:00 10/14/16 09:03 (Zanaflex) 4 mg BID PRN PO 10/12/16 18:15 (Pravachol) 80 mg DAILY PO 10/13/16 09:00 10/14/16 09:03 (Restoril) 30 mg HS PRN PO 10/12/16 18:15 10/14/16 00:09 (D50w (Vial) Inj) 25 ml UNSCH PRN IV PUSH 10/12/16 18:45 (Glucagon Inj) 1 mg UNSCH PRN OTHER 10/12/16 18:45 Assessment and Plan Problem List: (1) NSTEMI (non-ST elevated myocardial infarction) Status: Acute Plan: Troponin continue to be high No chest pain, no SOB Case discussed with Dr Akshat Olson who believe this is chronic. I will discussed the case with anesthesia (2) Atrial flutter Status: Acute Plan: In atrial flutter . Symptomatic. Due to increase troponin, I have some concern about sedation Dr Akshat Olson thinks this is chronic. No active ischemia Case discussed again with patient. Will order a new set of troponin and discussed the case with anesthesia (3) Congestive heart failure Status: Chronic Problem Qualifiers (1) Congestive heart failure: Qualified Code: I50.23 - Acute on chronic systolic congestive heart failure Bc Velazquez MD Oct 14, 2016 10:17
[2016-10-15] VITALS (27 sets, daily range): BP systolic 93–114; BP diastolic 64–75; PULSE 8–82; RESP 16–18; TEMP 97.4–98.1; O2SAT 94–100
[2016-10-15] MEDS: TEMAZEPAM 15 MG CAP PO PRN (00:46)
[2016-10-15] MEDS: INSULIN ASPART SUPPLEMENTAL SCALE SQ SCH ×4 (07:00→21:00)
--- NOTE | 2016-10-15 07:58 | PD.CARD.PN ---
Subjective Subjective Remarks denies cv complaints Objective Vital Signs / I&O Vital Signs Date Time Temp Pulse Resp B/P Pulse Ox O2 Delivery O2 Flow Rate FiO2 10/15/16 06:00 80 10/15/16 05:00 80 10/15/16 04:00 80 10/15/16 03:58 98.1 80 16 97/67 98 10/15/16 03:00 80 10/15/16 02:00 80 10/15/16 01:00 80 10/15/16 00:25 97.9 80 16 95/64 94 10/15/16 00:00 8 10/14/16 23:13 80 10/14/16 20:15 97.9 80 16 103/72 95 10/14/16 18:00 80 10/14/16 17:00 80 10/14/16 16:17 98.2 80 18 103/68 97 10/14/16 16:17 80 10/14/16 15:00 80 10/14/16 14:00 80 10/14/16 13:00 80 10/14/16 12:00 80 10/14/16 11:00 80 10/14/16 11:00 97.4 80 18 98/63 97 10/14/16 10:00 80 10/14/16 09:00 80 10/14/16 08:00 74 I/O 10/14/16 10/14/16 10/14/16 10/15/16 10/15/16 10/15/16 07:00 15:00 23:00 07:00 15:00 23:00 Intake Total 0 ml 1200 ml 480 ml Output Total 1100 ml Balance 0 ml 100 ml 480 ml Intake Oral 0 ml 1200 ml 480 ml Output Urine Total 1100 ml # Voids 3 2 4 2 # Bowel Movements 0 0 0 Physical Exam GENERAL: Well-nourished, well-developed patient in no apparent distress. NECK: No JVD. No carotid bruit. CARDIOVASCULAR: Regular rate and rhythm. S1/S2 no murmur, rub, or gallop. RESPIRATORY: No accessory muscle use. Clear to auscultation. Breath sounds equal bilaterally. GASTROINTESTINAL: Abdomen soft, non-tender, nondistended. MUSCULOSKELETAL: Extremities without clubbing, cyanosis, or edema. Assessment and Plan Problem List: (1) Atrial flutter (2) HTN (hypertension) (3) CAD (coronary artery disease) Assessment and Plan troponin is flat. Likely will proceed with ablation soon Slick Crespo Oct 15, 2016 07:58
[2016-10-15] MEDS: CLOPIDOGREL 75 MG TAB PO SCH ×2 (09:00→09:32)
--- NOTE | 2016-10-15 09:08 | HHI.PR ---
Subjective Remarks pt doing same. Objective Vitals heart reg. s3 intermittently present lung cta abd s/nt ext no edema Vital Signs Date Time Temp Pulse Resp B/P Pulse Ox O2 Delivery O2 Flow Rate FiO2 10/15/16 06:00 80 10/15/16 05:00 80 10/15/16 04:00 80 10/15/16 03:58 98.1 80 16 97/67 98 10/15/16 03:00 80 10/15/16 02:00 80 10/15/16 01:00 80 10/15/16 00:25 97.9 80 16 95/64 94 10/15/16 00:00 8 10/14/16 23:13 80 10/14/16 20:15 97.9 80 16 103/72 95 10/14/16 18:00 80 10/14/16 17:00 80 10/14/16 16:17 98.2 80 18 103/68 97 10/14/16 16:17 80 10/14/16 15:00 80 10/14/16 14:00 80 10/14/16 13:00 80 10/14/16 12:00 80 10/14/16 11:00 80 10/14/16 11:00 97.4 80 18 98/63 97 10/14/16 10:00 80 10/14/16 10/14/16 10/15/16 15:00 23:00 07:00 Intake Total 1200 ml 480 ml Output Total 1100 ml Balance 100 ml 480 ml Intake Oral 1200 ml 480 ml Output Urine Total 1100 ml # Voids 2 4 2 # Bowel Movements 0 0 Result Diagram: 10/12/16 1255 10/14/16 0445 A/P Problem List: (1) Atrial flutter Status: Acute Plan: Pt is 70 yo with cad/systolic chf/bivaicd/afib/copd/dm2 who presented with sob and persistent weakness. Troponin elevated in ED and nstemi questioned. but troponin flat and not felt to represent nstemi. Also her severe CM is being questioned for her sx's interogation of bivaicd shows aflutter tele. shows vpaced and av dissociation. spoke to Dr Olson/Caroline...await eps/ablation... anticoagulation on hold cont current cardiac meds telemetry dvt prophylaxis. (2) Congestive heart failure Status: Chronic Plan: systolic chf. stable. (3) Afib Status: Chronic Plan: stable (4) CKD (chronic kidney disease) stage 3, GFR 30-59 ml/min Status: Chronic Plan: stable (5) HTN (hypertension) Status: Chronic Plan: home meds (6) DM2 (diabetes mellitus, type 2) Status: Chronic Plan: ssi hold oha's (7) COPD (chronic obstructive pulmonary disease) Status: Chronic Plan: stable. Problem Qualifiers (1) Congestive heart failure: Qualified Code: I50.23 - Acute on chronic systolic congestive heart failure Julian Huff MD Oct 15, 2016 09:08
[2016-10-15] MEDS: LOSARTAN 25 MG TAB PO SCH (09:31)
[2016-10-15] MEDS: DIGOXIN 0.125 MG TAB PO SCH (09:32)
[2016-10-15] MEDS: MULTIVITAMIN TAB PO SCH (09:32)
[2016-10-15] MEDS: FERROUS SULFATE 325 MG (65 MG ELEMENTAL IRON) TAB PO SCH (09:32)
[2016-10-15] MEDS: BUMETANIDE 1 MG TAB PO SCH ×2 (09:32→17:22)
[2016-10-15] MEDS: CARVEDILOL 6.25 MG TAB PO SCH ×2 (09:32→21:31)
[2016-10-15] MEDS: PRAVASTATIN SOD 80 MG TAB PO SCH (09:32)
[2016-10-15] MEDS: AMIODARONE 200 MG TAB PO SCH (09:33)
[2016-10-15] MEDS ORDERED: PROPOFOL 200 MG/20 ML AMP IV ONE (10:04)
[2016-10-15] MEDS ORDERED: ISOPROTERENOL HCL 1 MG/5 ML AMP ONE (18:48)
[2016-10-15] MEDS ORDERED: MIDAZOLAM HCL 2 MG/2 ML VIAL ONE (18:49)
[2016-10-15] MEDS ORDERED: SODIUM CHLOR 0.9% 250 ML INJ 250 ML IV PRN (19:45)
[2016-10-15] MEDS ORDERED: ATROPINE SULFATE 1 MG/ML VIAL IV PRN (19:45)
[2016-10-15] MEDS ORDERED: ONDANSETRON HCL 4 MG/2 ML VIAL IV PRN (19:45)
[2016-10-15] MEDS ORDERED: METOCLOPRAMIDE HCL 10 MG/2 ML VIAL IV PRN (19:45)
[2016-10-15] MEDS ORDERED: BACITRACIN OINT 0.9 GM PKT TOP ONE (19:45)
[2016-10-15] MEDS ORDERED: oxyCODONE/ACETAMINOPHEN 5 MG/325 MG TAB PO PRN ×2 (19:45)
[2016-10-15] MEDS ORDERED: LIDOCAINE HCL 1% 50 ML VIAL INFIL PRN (19:45)
[2016-10-15] MEDS ORDERED: LORazepam 2 MG/ML VIAL IV PRN (19:45)
[2016-10-15] MEDS: APIXABAN 5 MG TABLET PO SCH (22:37)
[2016-10-16] VITALS (26 sets, daily range): BP systolic 96–107; BP diastolic 52–68; PULSE 50–94; RESP 16–18; TEMP 97.4–98.1; O2SAT 93–100
[2016-10-16] MEDS: TEMAZEPAM 15 MG CAP PO PRN (00:37)
[2016-10-16] MEDS ORDERED: ACETAMINOPHEN 325 MG TAB PO PRN (05:15)
[2016-10-16] MEDS: INSULIN ASPART SUPPLEMENTAL SCALE SQ SCH ×4 (06:15→21:30)
[2016-10-16 06:37] LABS: BICARBONATE 26.1 MEQ/L (21.0-32.0); POTASSIUM 4.5 MEQ/L (3.5-5.1)
--- NOTE | 2016-10-16 08:04 | HHI.PR ---
Subjective Remarks ambulated last night after procedure and says her admitting sx's are better. right now with some left side back pain denies pleurisy Objective Vitals heart reg lung cta abd s/nt ext no edema no tenderness to palpation over left back/scapula area Vital Signs Date Time Temp Pulse Resp B/P Pulse Ox O2 Delivery O2 Flow Rate FiO2 10/16/16 07:53 80 10/16/16 07:30 97.4 80 16 96/62 100 10/16/16 06:00 80 10/16/16 05:12 97.4 80 18 106/68 100 10/16/16 05:00 80 10/16/16 04:00 80 10/16/16 03:00 80 10/16/16 02:00 60 10/16/16 01:00 60 10/16/16 00:00 60 10/15/16 23:25 97.6 60 16 93/67 100 10/15/16 23:00 60 10/15/16 22:00 60 10/15/16 21:00 60 10/15/16 20:40 97.6 62 16 111/70 100 10/15/16 19:00 80 10/15/16 18:10 80 10/15/16 17:07 80 10/15/16 16:07 62 10/15/16 15:27 97.8 60 16 114/75 97 10/15/16 15:27 60 10/15/16 14:08 60 10/15/16 13:01 59 10/15/16 12:19 60 10/15/16 11:48 97.6 82 18 98/69 98 10/15/16 11:48 80 10/15/16 10:53 75 10/15/16 09:47 80 10/15/16 08:15 80 10/15/16 10/15/16 10/16/16 15:00 23:00 07:00 Intake Total 250 ml 240 ml Output Total 600 ml Balance 250 ml -360 ml Intake Oral 250 ml 240 ml Output Urine Total 600 ml # Voids 4 # Bowel Movements 0 Result Diagram: 10/12/16 1255 10/16/16 0545 A/P Problem List: (1) Atrial flutter Status: Acute Plan: Pt is 70 yo with cad/systolic chf/bivaicd/afib/copd/dm2 who presented with sob and persistent weakness. Troponin elevated in ED and nstemi questioned. but troponin flat and not felt to represent nstemi. Also her severe CM is being questioned for her sx's interogation of bivaicd shows aflutter tele. shows vpaced and av dissociation. s/p ablation/cardioversion 03/17 anticoagulation cont current cardiac meds telemetry dvt prophylaxis. d/c when ok with cardiology (2) Congestive heart failure Status: Chronic Plan: systolic chf. stable. (3) Afib Status: Chronic Plan: stable (4) CKD (chronic kidney disease) stage 3, GFR 30-59 ml/min Status: Chronic Plan: stable (5) HTN (hypertension) Status: Chronic Plan: home meds (6) DM2 (diabetes mellitus, type 2) Status: Chronic Plan: ssi hold oha's (7) COPD (chronic obstructive pulmonary disease) Status: Chronic Plan: stable. Problem Qualifiers (1) Congestive heart failure: Qualified Code: I50.23 - Acute on chronic systolic congestive heart failure Julian Huff MD Oct 16, 2016 08:04
[2016-10-16] MEDS: PRAVASTATIN SOD 80 MG TAB PO SCH (08:59)
[2016-10-16] MEDS: MULTIVITAMIN TAB PO SCH (08:59)
[2016-10-16] MEDS: CARVEDILOL 6.25 MG TAB PO SCH ×2 (08:59→21:31)
[2016-10-16] MEDS: LOSARTAN 25 MG TAB PO SCH ×2 (08:59→09:00)
[2016-10-16] MEDS: CLOPIDOGREL 75 MG TAB PO SCH (08:59)
[2016-10-16] MEDS: APIXABAN 5 MG TABLET PO SCH ×2 (09:01→21:31)
[2016-10-16] MEDS: FERROUS SULFATE 325 MG (65 MG ELEMENTAL IRON) TAB PO SCH (09:01)
[2016-10-16] MEDS: DIGOXIN 0.125 MG TAB PO SCH (09:01)
[2016-10-16] MEDS: BUMETANIDE 1 MG TAB PO SCH ×2 (09:01→16:53)
[2016-10-16] MEDS: AMIODARONE 200 MG TAB PO SCH (09:02)
[2016-10-16] MEDS: glipiZIDE 5 MG TAB PO SCH ×2 (09:05→16:53)
--- NOTE | 2016-10-16 09:54 | PD.CARD.PN ---
Subjective Subjective Remarks No complaints Objective Medications Current Medications Medications (Trade) Dose Ordered Sig/Gisela Route Start Time Stop Time Status Last Admin (Cordarone) 200 mg DAILY PO 10/13/16 09:00 10/16/16 09:02 (Eliquis) 5 mg BID PO 10/12/16 21:00 Hold 10/13/16 09:40 (Bumetanide) 1 mg BID@09,18 PO 10/12/16 18:32 10/16/16 09:01 (Coreg) 6.25 mg BID PO 10/12/16 21:00 10/16/16 08:59 (Plavix) 75 mg DAILY PO 10/13/16 09:00 10/16/16 08:59 (Lanoxin) 0.125 mg DAILY PO 10/13/16 09:00 10/16/16 09:01 (Ferrous Sulfate) 325 mg DAILY PO 10/13/16 09:00 10/16/16 09:01 (Cozaar) 25 mg DAILY PO 10/13/16 09:00 10/15/16 09:31 (Theragran) 1 tab DAILY PO 10/13/16 09:00 10/16/16 08:59 (Zanaflex) 4 mg BID PRN PO 10/12/16 18:15 (Pravachol) 80 mg DAILY PO 10/13/16 09:00 10/16/16 08:59 (Restoril) 30 mg HS PRN PO 10/12/16 18:15 10/16/16 00:37 (D50w (Vial) Inj) 25 ml UNSCH PRN IV PUSH 10/12/16 18:45 (Glucagon Inj) 1 mg UNSCH PRN OTHER 10/12/16 18:45 (Ativan Inj) 0.5 mg UNSCH PRN IV 10/15/16 19:45 10/16/16 19:44 Atropine Sulfate 0.5 mg 0.5 mg UNSCH PRN IV 10/15/16 19:45 (NS 250 ml Inj) 250 ml @ 500 mls/hr ONCE PRN IV 10/15/16 19:45 10/16/16 19:44 (Reglan Inj) 10 mg Q4H PRN IV 10/15/16 19:45 (Zofran Inj) 4 mg Q4H PRN IV 10/15/16 19:45 10/16/16 01:13 (Xylocaine 1% Inj (50 ml)) 10 ml UNSCH PRN INFIL 10/15/16 19:45 10/16/16 19:44 (Eliquis) 5 mg BID PO 10/15/16 22:00 10/16/16 09:01 (Tylenol) 650 mg Q6H PRN PO 10/16/16 05:15 10/16/16 09:02 (Glucotrol) 5 mg BID@ PO 10/16/16 08:15 10/16/16 09:05 Vital Signs / I&O Vital Signs Date Time Temp Pulse Resp B/P Pulse Ox O2 Delivery O2 Flow Rate FiO2 10/16/16 09:46 80 10/16/16 08:25 80 10/16/16 07:53 80 10/16/16 07:30 97.4 80 16 96/62 100 10/16/16 06:00 80 10/16/16 05:12 97.4 80 18 106/68 100 10/16/16 05:00 80 10/16/16 04:00 80 10/16/16 03:00 80 10/16/16 02:00 60 10/16/16 01:00 60 10/16/16 00:00 60 10/15/16 23:25 97.6 60 16 93/67 100 10/15/16 23:00 60 10/15/16 22:00 60 10/15/16 21:00 60 10/15/16 20:40 97.6 62 16 111/70 100 10/15/16 19:00 80 10/15/16 18:10 80 10/15/16 17:07 80 10/15/16 16:07 62 10/15/16 15:27 97.8 60 16 114/75 97 10/15/16 15:27 60 10/15/16 14:08 60 10/15/16 13:01 59 10/15/16 12:19 60 10/15/16 11:48 97.6 82 18 98/69 98 10/15/16 11:48 80 10/15/16 10:53 75 I/O 10/15/16 10/15/16 10/15/16 10/16/16 10/16/16 10/16/16 07:00 15:00 23:00 07:00 15:00 23:00 Intake Total 480 ml 250 ml 240 ml Output Total 600 ml Balance 480 ml 250 ml -360 ml Intake Oral 480 ml 250 ml 240 ml Output Urine Total 600 ml # Voids 2 4 # Bowel Movements 0 Physical Exam Alert Chest clear CV [id number] RRR Tele/EKG atrial tachycardia reappeared 0300 No edema [place] Laboratory Laboratory Tests Test 10/15/16 10/16/16 11:00 05:45 Troponin I 0.88 NG/ML Sodium Level 136 MEQ/L Potassium Level 4.5 MEQ/L Chloride Level 101 MEQ/L Carbon Dioxide Level 26.1 MEQ/L Anion Gap 9 MEQ/L Blood Urea Nitrogen 25 MG/DL Creatinine 1.41 MG/DL Estimat Glomerular Filtration 45 ML/MIN Rate Random Glucose 175 MG/DL Calcium Level 9.3 MG/DL Assessment and Plan Problem List: (1) Atrial flutter (2) HTN (hypertension) (3) CAD (coronary artery disease) Assessment and Plan: Medical therapy (4) Atrial tachycardia Assessment and Plan: Hold discharge. I've texted Dr. Caroline hernandezing his input. Maverick Dye MD Oct 16, 2016 09:53
[2016-10-16 10:31] LABS: APTT (PATIENT) 27.5 SEC (24.3-30.1); INTERNATIONAL NORMALIZED RATIO 1.2 RATIO; PROTHROMBIN TIME - PATIENT 12.9 SEC (9.8-11.6)
--- NOTE | 2016-10-16 16:44 | EKG ---
Date Performed: 10/15/2016 Time Performed: 20:18:16 PTAGE: 70 years EKG: A-V sequential pacemaker Atrial tachycardia no longer present Abnormal ECG PREVIOUS TRACING : 10/12/2016 18.24 DOCTOR: Maverick Dye Interpretating Date/Time 10/16/2016 16:42:32
--- NOTE | 2016-10-16 16:44 | EKG ---
Date Performed: 10/16/2016 Time Performed: 05:12:44 PTAGE: 70 years EK% Ventricular pacing Atrial tachycardia present Patient is no longer in an AV paced rhyt hm Compared to previous tracing Abnormal ECG PREVIOUS TRACING : 10/15/2016 20.18 DOCTOR: Maverick Dye Interpretating Date/Time 10/16/2016 16:43:27
[2016-10-17] VITALS (13 sets, daily range): BP systolic 93–100; BP diastolic 64–70; PULSE 52–80; RESP 16; TEMP 98.1–98.5; O2SAT 95–98
[2016-10-17] MEDS: TEMAZEPAM 15 MG CAP PO PRN (00:57)
[2016-10-17] MEDS: INSULIN ASPART SUPPLEMENTAL SCALE SQ SCH (07:00)
--- NOTE | 2016-10-17 08:47 | HHI.PR ---
Subjective Remarks short distance ambulation. feels well. wants to go home. denies significant sob with ambulating. Objective Vitals s1,s2 cta abd s/nt ext no edema Vital Signs Date Time Temp Pulse Resp B/P Pulse Ox O2 Delivery O2 Flow Rate FiO2 10/17/16 07:40 98.5 80 16 100/69 98 10/17/16 07:40 80 10/17/16 06:00 52 10/17/16 05:00 78 10/17/16 04:36 98.2 80 16 100/70 95 10/17/16 04:00 52 10/17/16 03:00 78 10/17/16 02:00 80 10/17/16 01:00 80 10/17/16 00:55 98.1 78 16 93/64 95 10/17/16 00:00 80 10/16/16 23:00 80 10/16/16 22:00 80 10/16/16 21:35 98.1 94 16 107/64 93 10/16/16 20:00 80 10/16/16 19:00 80 10/16/16 18:16 76 10/16/16 17:03 80 10/16/16 16:38 76 10/16/16 15:55 98.1 80 18 104/68 98 10/16/16 15:55 80 10/16/16 14:08 80 10/16/16 13:18 80 10/16/16 12:17 80 10/16/16 11:13 97.8 80 18 103/52 99 10/16/16 11:13 50 10/16/16 10:11 18 10/16/16 10:10 80 10/16/16 09:46 80 10/16/16 10/16/16 10/17/16 15:00 23:00 07:00 Intake Total 720 ml 360 ml Output Total 800 ml Balance 720 ml -440 ml Intake Oral 720 ml 360 ml Output Urine Total 800 ml # Voids 3 # Bowel Movements 0 Result Diagram: 10/16/16 0545 A/P Problem List: (1) Atrial flutter Status: Acute Plan: Pt is 70 yo with cad/systolic chf/bivaicd/afib/copd/dm2 who presented with sob and persistent weakness. Troponin elevated in ED and nstemi questioned. but troponin flat and not felt to represent nstemi. Also her severe CM is being questioned for her sx's interogation of bivaicd shows aflutter s/p ablation/cardioversion 03/17 anticoagulation cont current cardiac meds telemetry dvt prophylaxis. Dr Velazquez and Hardik spoke yesterday and ok with d/c home. (2) Congestive heart failure Status: Chronic Plan: systolic chf. stable. (3) Afib Status: Chronic Plan: stable (4) CKD (chronic kidney disease) stage 3, GFR 30-59 ml/min Status: Chronic Plan: stable (5) HTN (hypertension) Status: Chronic Plan: home meds (6) DM2 (diabetes mellitus, type 2) Status: Chronic Plan: ssi hold oha's (7) COPD (chronic obstructive pulmonary disease) Status: Chronic Plan: stable. Problem Qualifiers (1) Congestive heart failure: Qualified Code: I50.23 - Acute on chronic systolic congestive heart failure Julian Huff MD Oct 17, 2016 08:47
[2016-10-17] MEDS: FERROUS SULFATE 325 MG (65 MG ELEMENTAL IRON) TAB PO SCH (08:48)
[2016-10-17] MEDS: DIGOXIN 0.125 MG TAB PO SCH (08:48)
[2016-10-17] MEDS: CARVEDILOL 6.25 MG TAB PO SCH (08:49)
[2016-10-17] MEDS: PRAVASTATIN SOD 80 MG TAB PO SCH (08:49)
[2016-10-17] MEDS: glipiZIDE 5 MG TAB PO SCH (08:49)
[2016-10-17] MEDS: APIXABAN 5 MG TABLET PO SCH (08:49)
[2016-10-17] MEDS: BUMETANIDE 1 MG TAB PO SCH (08:49)
[2016-10-17] MEDS: LOSARTAN 25 MG TAB PO SCH ×2 (08:49→08:52)
[2016-10-17] MEDS: AMIODARONE 200 MG TAB PO SCH (08:49)
[2016-10-17] MEDS: CLOPIDOGREL 75 MG TAB PO SCH (08:49)
[2016-10-17] MEDS: MULTIVITAMIN TAB PO SCH (08:49)
--- NOTE | 2016-10-17 08:49 | HHI.DCPOC ---
Discharge Care Plan Diagnosis: (1) Atrial flutter (2) Congestive heart failure (3) CAD (coronary artery disease) (4) DM2 (diabetes mellitus, type 2) (5) COPD (chronic obstructive pulmonary disease) (6) CKD (chronic kidney disease) stage 3, GFR 30-59 ml/min (7) HTN (hypertension) Goals to Promote Your Health * To prevent worsening of your condition and complications * To maintain your health at the optimal level Directions to Meet Your Goals Take your medications as prescribed Follow your dietary instruction Follow activity as directed Keep your appointments as scheduled Take your immunizations and boosters as scheduled If your symptoms worsen call your PCP, if no PCP go to Urgent Care Center or Emergency Room Smoking is Dangerous to Your Health. Avoid second hand smoke Call the 24-hour hour crisis hotline for domestic abuse at Julian Huff MD Oct 17, 2016 08:49
--- NOTE | 2016-11-01 12:14 | MA ---
cc: THEE RUDD MD, HANSCY M.D. DATE: 10/15/2016 PROCEDURE Electrophysiology study, CS cannulation, 3-D mapping, radiofrequency ablation of atrial flutter, right atrial tachycardia ablation, biventricular pacer defibrillator reprogramming and cardioversion. That was a very complex case. INDICATION Mrs. Salinas is a 70-year-old -[place] female with congestive heart failure, coronary artery disease, cardiomyopathy, not a candidate for vascularization, atrial flutter very symptomatic, who is to undergo atrial flutter ablation. The risks, the nature and the benefit of the procedure were clearly stated to the patient. The risks include pneumothorax, cardiac perforation, stroke and even . She understood and agreed to proceed. Also, the case was discussed extensively with Anesthesia before we scheduled the procedure. DETAILS OF PROCEDURE After written informed consent was obtained, the patient was brought to the EP lab where she was prepped and draped in the usual sterile fashion. Conscious sedation was initiated and maintained throughout the procedure by the anesthesiologist. Once sedation was verified, the right and left inguinal area was anesthetized with 2% Xylocaine. Using modified Seldinger technique, the left femoral vein was cannulated on three occasions and three guidewires were advanced. Over the wires three 5 Danish Hemaquets were advanced. Then the right femoral vein was cannulated on two occasions and two guidewires were advanced. Over the wire a 6 and an 8 Danish Hemaquet were advanced. At that point I decided to reprogram the biventricular pacer defibrillator to VVI 40, defibrillatory off. Then through the 6 and 7 Danish Hemaquets, four 5 Danish Grace curved quadripolar electrophysiology catheters were advanced and positioned on the His, upper right atrium, coronary sinus and right ventricular apex. Basic interval was measured. The patient was in atrial flutter. Through the 8 Danish Hemaquet a Cordis-Frances F Curve 8 mm mapping and radiofrequency ablation catheter was advanced. Using the [employer] Mapping System a three-dimensional configuration of the right atrium was obtained. Godinez were taken at the SVC, IVC, CS and His. Then the catheter was directed at the critical isthmus and radiofrequency energy was delivered. During ablation tachyarrhythmia changed activation. Early activation was in the coronary sinus. Then the coronary sinus was isolated. Right atrial tachycardia was ablated also. Then tachyarrhythmia switched into atrial fibrillation. At that point I decided to proceed with cardioversion. The patient was not in optimal condition for atrial fibrillation ablation. Cardioversion was started. A 200 sync biphasic joule was delivered that converted the patient into sinus rhythm. Pacing lateral to the showed early activation to the His compared to the CS, that indicated a line of block. Then atrial pacing protocol was performed at the CS. No tachyarrhythmia was induced. At that point the procedure was complete. I am not going to use Isuprel infusion. Troponin is high. All catheters were removed. The biventricular pacer defibrillator was reprogrammed into DDD 60 with pacing support and defibrillatory on. The patient is going to be transferred to the recovery room. That was a very complex case. No incident report. The patient tolerated procedure. Blood loss minimal. FINDINGS 1. Electrocardiogram: At baseline the patient was in atrial flutter. Post procedure the patient was in sinus rhythm. 2. Basic interval: The cycle length was around 730 milliseconds. 3. Tachyarrhythmia: Atrial flutter was mapped and ablated, right atrial tachycardia was ablated, atrial fibrillation was cardioverted. CONCLUSIONS Successful electrophysiology study, mapping and radiofrequency ablation of atrial flutter, right atrial tachycardia and cardioversion of atrial fibrillation. COMMENT/RECOMMENDATION The patient is going to be transferred to the telemetry unit. He will be observed and further management per Dr. Rudd and the managing team. Bc Velazquez MD HS/BT /10:40 AM /11:50 AM
[2016-11-08] MEDS ORDERED: TRANSPORT CHAIR1 MIS (12:46)
[2016-11-08] MEDS ORDERED: COMMODE 3-IN-11 MIS (12:46)
[2016-11-10] MEDS ORDERED: Aspirin Chew CHEW (08:13)
[2016-11-10] MEDS ORDERED: ZOCO40TA PO (08:13)
[2016-11-10] MEDS ORDERED: BUME1TAB PO (08:13)
[2016-11-10] MEDS ORDERED: Spironolactone PO (08:13)
[2016-11-10] MEDS ORDERED: METF500T PO (08:13)
[2016-11-10] MEDS ORDERED: MULT-135 PO (08:13)
[2016-11-10] MEDS ORDERED: APIX5TAB PO (08:13)
[2016-11-10] MEDS ORDERED: TEMA7.5C9 PO (08:13)
--- NOTE | 2016-11-15 21:49 | HHI.DS ---
Discharge Summary Admission Date Oct 12, 2016 at 15:25 Discharge Date: Oct 17, 2016 Admitting Diagnosis NSTEMI, CHF (1) Atrial flutter Diagnosis: Principal (2) Congestive heart failure Diagnosis: Principal (3) Afib Diagnosis: Secondary (4) CKD (chronic kidney disease) stage 3, GFR 30-59 ml/min Diagnosis: Secondary (5) HTN (hypertension) Diagnosis: Secondary (6) DM2 (diabetes mellitus, type 2) Diagnosis: Secondary (7) COPD (chronic obstructive pulmonary disease) Diagnosis: Secondary Brief History Pt is 70 yo with cad, chf, dm2, ckd 3, copd presents with general weakness/ fatigue and some sob. Apparently had recent cold and followed by her pcp. When she had persistent sx' s was referred to ED today. Her troponin was elevated and cardiology consulted from ED and pt admitted for nstemi. pt denies any cp presently and is comfortably with family at bedside. denies any diaphoresis or n/v. Hospital Course Pt is 70 yo with cad/systolic chf/bivaicd/afib/copd/dm2 who presented with sob and persistent weakness. Troponin elevated in ED and nstemi questioned. but troponin flat and not felt to represent nstemi. Also her severe CM is being questioned for her sx's interogation of bivaicd shows aflutter s/p ablation/cardioversion 03/17 anticoagulation cont current cardiac meds Dr Velazquez and Hardik spoke yesterday and ok with d/c home. ( Problem Qualifiers (1) Congestive heart failure: Qualified Code: I50.23 - Acute on chronic systolic congestive heart failure Julian Huff MD Oct 17, 2016 08:47 <Electronically signed by Julian Huff MD> 10/18/16 1007 Pt Condition on Discharge: Stable Discharge Disposition: Discharge Home Discharge Instructions DIET: Follow Instructions for: Diabetic Diet Activities you can perform: Regular-No Restrictions Follow up Referrals: Cardiology - 1 Week with Bc Velazquez MD Cardiology - [address] emmanuelle perez PCP Follow-up - 1 Week with Julian Frias MD Nov 15, 2016 21:49
== END 2016-10-17 10:05 | disposition home or self-care (01) | DRG 274 ==
LOC: NEPE 11:04 → NEDA 15:25 → HCIS 21:36
PROVIDERS: ADMIT Hospitalist; ATTEND Hospitalist
PROC: 4A0234Z Measurement of Cardiac Electrical Activity, Percutaneous Approach (ICD-10-PCS; 2016-10-15)
PROC: 5A2204Z Restoration of Cardiac Rhythm, Single (ICD-10-PCS; 2016-10-15)
PROC: 4B02XTZ Measurement of Cardiac Defibrillator, External Approach (ICD-10-PCS; 2016-10-15)
PROC: 02K83ZZ Map Conduction Mechanism, Percutaneous Approach (ICD-10-PCS; 2016-10-15)
PROC: 02583ZZ Destruction of Conduction Mechanism, Percutaneous Approach (ICD-10-PCS; principal; 2016-10-15 16:00)
DX: I48.92 Unspecified atrial flutter (principal); I50.22 Chronic systolic (congestive) heart failure; E11.22 Type 2 diabetes mellitus with diabetic chronic kidney disease; J44.9 Chronic obstructive pulmonary disease, unspecified; I45.89 Other specified conduction disorders; I47.1 Supraventricular tachycardia; I48.2 Chronic atrial fibrillation; N18.3 Chronic kidney disease, stage 3 (moderate); R53.1 Weakness; I12.9 Hypertensive chronic kidney disease with stage 1 through stage 4 chronic kidney disease, or unspecified chronic kidney disease; I25.10 Atherosclerotic heart disease of native coronary artery without angina pectoris; E78.5 Hyperlipidemia, unspecified; I25.5 Ischemic cardiomyopathy; Z79.84 Long term (current) use of oral hypoglycemic drugs; Z45.02 Encounter for adjustment and management of automatic implantable cardiac defibrillator
CPT/HCPCS: 71010; 80048; 80053; 80162; 81001; 82550; 82948; 83690; 83735; 83880; 84484; 85025; 85610; 85730; 87040; 92960; 93005; 93613; 93623; 93653; C1730; C1732; C2630; J1815; J2250; J2405; J3010

== ENCOUNTER 2016-10-25 11:20 | Inpatient (IN) | payer MEDICARE ==
[~2016-10-25] VITALS: Ht 165.1 cm; Wt 63.0 kg
[2016-10-25] VITALS (20 sets, daily range): BP systolic 103–118; BP diastolic 66–79; PULSE 70–80; RESP 26–33; TEMP 97.2–98.8; O2SAT 95–100
[~2016-10-25 11:20] MED LIST changes: +AMIO200T PO; -APIX5 PO; +APIX5TAB PO; -ASPI81 PO; +CARV6.25 PO; -CARV6.252 PO; -CLOP75 PO; -DIGO0.12 PO; +FERR1TAB36 PO; +GLIP5TAB8 PO; -KCL20 PO; +LANO0.1212 PO; -LORA1TAB PO; +LOSA25TA PO; +METF500T PO; +MULT-135 PO; +PLAV75TA29 PO; +REST30CA PO; -SIMV40TA PO; +TIZA4CAP3 PO; +VITA500T PO; +ZOCO40TA PO
[2016-10-25] MEDS ORDERED: SODIUM CHLOR 0.9% 1000 ML INJ 1,000 ML IV ONE (11:25)
[2016-10-25] MEDS ORDERED: SODIUM CHLORID 0.9% 500 ML INJ 500 ML IV ONE (11:45)
--- NOTE | 2016-10-25 11:46 | RADRPT ---
EXAM DATE/TIME: 10/25/2016 11:33 [facility] COMPARISON: No previous studies available for comparison. INDICATIONS : Stroke alert, right side hemilegia and aphasia today. RADIATION DOSE: 37.49 CTDIvol (mGy) This report was called by to Nolberto at 11.40 MEDICAL HISTORY : Non-responsive. SURGICAL HISTORY : Non-responsive. ENCOUNTER: Initial ACUITY: 1 day PAIN SCALE: Non-responsive LOCATION: Bilateral head TECHNIQUE: Multiple contiguous axial images were obtained of the head. Using automated exposure control and adj ustment of the mA and/or kV according to patient size, radiation dose was kept as low as reasonably a chievable to obtain optimal diagnostic quality images. FINDINGS: CEREBRUM: The ventricles are normal for age. No evidence of midline shift, mass lesion, hemorrhage or acute in farction. No extra-axial fluid collections are seen. There is a small area of benign appearing calci fication along the sylvian region on the left. POSTERIOR FOSSA: The cerebellum and brainstem are intact. The 4th ventricle is midline. The cerebellopontine angle i s unremarkable. EXTRACRANIAL: The visualized portion of the orbits is intact. SKULL: The calvaria is intact. No evidence of skull fracture. CONCLUSION: 1. No acute intracranial abnormality identified. Wade Fam MD on October 25, 2016 at 11:40 Board Certified Radiologist. This report was verified electronically.
[2016-10-25 11:56] LABS: AUTOMATED NEUTROPHIL # 3.5 TH/MM3 (1.8-7.7); BASOPHIL # 0.1 TH/MM3 (0-0.2); BASOPHIL % 1.2 % (0.0-2.0); EOSINOPHIL # 0.1 TH/MM3 (0-0.4); EOSINOPHIL % 0.9 % (0.0-4.0); HEMATOCRIT 37.9 % (35.0-46.0); HEMO FLAGS DIFF FINAL; LYMPH % 27.4 % (9.0-44.0); LYMPHOCYTE # 1.6 TH/MM3 (1.0-4.8); MEAN CELL VOLUME 88.8 FL (80.0-100.0); MEAN CORPUSCULAR HEMOGLOBIN 28.9 PG (27.0-34.0); MEAN CORPUSCULAR HGB CONC 32.5 % (32.0-36.0); MONO % 8.9 % (0.0-8.0); NEUT % 61.6 % (16.0-70.0); PLATELET COUNT 274 TH/MM3 (150-450); RED BLOOD COUNT 4.27 MIL/MM3 (4.00-5.30); RED CELL DISTRIBUTION WIDTH 17.2 % (11.6-17.2); WHITE BLOOD COUNT 5.7 TH/MM3 (4.0-11.0)
[2016-10-25 12:05] LABS: APTT (PATIENT) 28.5 SEC (24.3-30.1); INTERNATIONAL NORMALIZED RATIO 1.3 RATIO; PROTHROMBIN TIME - PATIENT 14.8 SEC (9.8-11.6)
--- NOTE | 2016-10-25 12:08 | RADRPT ---
EXAM DATE/TIME: 10/25/2016 11:37 [facility] COMPARISON: No previous studies available for comparison. INDICATIONS : Stroke alert, right sided weakness and aphasia. IV CONTRAST: 150 cc Omnipaque 350 (iohexol) IV ; Cumulative dose for multiple exams. RADIATION DOSE: 26.95 CTDIvol (mGy) ; Combined studies MEDICAL HISTORY : Non-responsive. SURGICAL HISTORY : Non-responsive. ENCOUNTER: Initial ACUITY: 1 day PAIN SCALE: Non-responsive LOCATION: Bilateral head TECHNIQUE: Volumetric scanning was performed using a multi-row detector CT scanner. The data was post processed with a variety of visualization algorithms including full volume maximum intensity projection, multi -planar sliding thin slab reformation, curved planar reformation, and surface rendering techniques. Using automated exposure control and adjustment of the mA and/or kV according to patient size, radiat ion dose was kept as low as reasonably achievable to obtain optimal diagnostic quality images. FINDINGS: There is excellent visualization of the major intracranial arteries out to the second-order branch ve ssels. Large embolus to the ICA terminus/M1 segment on the left. CONCLUSION: 1. Embolus to the ICA terminus/left M1 segment. 2. Results called to Dr. Arvizu at the time of this dictation Trae Lima MD on October 25, 2016 at 12:02 Board Certified Radiologist. This report was verified electronically.
[2016-10-25] MEDS ORDERED: IOHEXOL 350 MG/ML 10 ML VIAL (for RAD DIAG) IV ONE (12:09)
[2016-10-25] MEDS ORDERED: VERAPAMIL HCL 5 MG/2 ML VIAL ONE ×2 (12:35→14:25)
--- NOTE | 2016-10-25 12:48 | RADRPT ---
EXAM DATE/TIME: 10/25/2016 11:46 [facility] COMPARISON: No previous studies available for comparison. INDICATIONS : Stroke alert, right sided weakness and aphasia. IV CONTRAST: 150 cc Omnipaque 350 (iohexol) IV ; Cumulative dose for multiple exams. RADIATION DOSE: 26.95 CTDIvol (mGy) ; Combined studies MEDICAL HISTORY : Non-responsive. SURGICAL HISTORY : Non-responsive. ENCOUNTER: Initial ACUITY: 1 day PAIN SCALE: Non-responsive LOCATION: Bilateral neck Elevated flow velocities and ICA/CCA ratios have been found to correlate with increased degrees of vessel stenosis, calculated as percentage of diameter relative to a normal segment of distal ICA/CCA. TECHNIQUE: Volumetric scanning was performed using a multirow detector CT scanner. The data was post processed with a variety of visualization algorithms including full-volume maximum intensity projection, multip lanar sliding thin-slab reformation, curved-planar reformation, and surface-rendering techniques. Us ing automated exposure control and adjustment of the mA and/or kV according to patient size, radiatio n dose was kept as low as reasonably achievable to obtain optimal diagnostic quality images. FINDINGS: AORTIC ARCH: Truncus arch anatomy. Arch vessels are widely patent RIGHT CAROTID: No significant bifurcation stenosis. Right ICA is widely patent skull base. LEFT CAROTID: Minimal eccentric calcific plaquing at the left ICA origin area no significant stenotic narrowing. Le ft ICA is widely patent to the skull base. VERTEBRALS: The vertebral arteries have a symmetric diameter. No stenotic lesions are seen. CONCLUSION: Bovine arch. Negative exam Mello Cameron MD on October 25, 2016 at 12:43 Board Certified Radiologist. This report was verified electronically.
[2016-10-25] MEDS ORDERED: MIDAZOLAM HCL 5 MG/5 ML VIAL ONE ×2 (12:57→15:13)
--- NOTE | 2016-10-25 13:00 | PD ---
HPI Chief Complaint: Stroke Alert Time Seen by Provider: 11:25 Travel History International Travel<30 days: No Contact w/Intl Traveler<30days: No Traveled to known affect area: No History of Present Illness HPI 70-year-old female came to the emergency room with history of unable to move her right side or speak. Her friend found her like this and called 911. She was brought in by EMS as a stroke alert. She was last seen normal at 6:45 AM by this friend of hers. Her son is here who says he last saw her normal yesterday. He hasn't seen her today at all until now. Patient has a right sided weakness that is completely flaccid paralysis, afebrile here, fixed gaze to the left. Patient obviously is unable to give any meaningful history. Her vital signs were stable upon arrival. [facility] Past Medical History Narrative Medical List of her past medical, surgical, social and family history was reviewed from the nursing note. Hx Anticoagulant Therapy: Yes Asthma: Yes Blood Disorders: No Heart Rhythm Problems: Yes Cancer: No Cardiovascular Problems: Yes (2014) High Cholesterol: Yes Chemotherapy: No Chest Pain: No Congestive Heart Failure: Yes COPD: Yes Coronary Artery Disease: Yes Diabetes: Yes Diminished Hearing: No Endocrine: Yes Gastrointestinal Disorders: No Genitourinary: No Implanted Vascular Access Dvce: Yes Musculoskeletal: No Neurologic: No Psychiatric: No Reproductive: Yes (BLEEDING) Respiratory: Yes (COPD, ASTHMA) Immunizations Current: Yes Radiation Therapy: No Sickle Cell Disease: No Sleep Apnea: No Past Surgical History Abdominal Surgery: Yes (cholecystectomy) AICD: Yes Appendectomy: Yes Arteriovenous Shunt: No Cardiac Surgery: Yes (DEFIBRILLATOR) Cholecystectomy: Yes Genitourinary Surgery: Yes (hysterectomy) Gynecologic Surgery: Yes (FLORINDA) Hysterectomy: Yes Insulin Pump: No Joint Replacement: No Pacemaker: Yes Thoracic Surgery: No Other Surgery: Yes Social History Alcohol Use: No Tobacco Use: No Substance Use: No Allergies-Medications (Allergen,Severity, Reaction): Coded Allergies: Aspirin (Verified Allergy, Mild, NAUSEA/VOMITING, 03/05/16) Comments List of her allergies reviewed from the nursing note. Reported Meds & Prescriptions Reported Meds & Active Scripts Active Reported Vitamin C (Ascorbic Acid) 500 Mg Tab 500 Mg PO DAILY Tizanidine (Tizanidine HCl) 4 Mg Cap 4 Mg PO BID PRN Restoril (Temazepam) 30 Mg Cap 30 Mg PO HS PRN Zocor (Simvastatin) 40 Mg Tab 40 Mg PO DAILY Multi Vitamin (Multiple Vitamin) 1 Tab Tab 1 Tab PO DAILY Metformin (Metformin HCl) 500 Mg Tab 500 Mg PO BID With meals Losartan (Losartan Potassium) 25 Mg Tab 25 Mg PO DAILY Iron (Ferrous Sulfate) 325 Mg Tab 325 Mg PO DAILY Take Glipizide 5 Mg Tab 5 Mg PO BID Take 30 minutes before a meal Eliquis (Apixaban) 5 Mg Tab 5 Mg PO BID Lanoxin (Digoxin) 0.125 Mg Tab 0.125 Mg PO DAILY Plavix (Clopidogrel Bisulfate) 75 Mg Tab 75 Mg PO DAILY Coreg (Carvedilol) 6.25 Mg Tab 6.25 Mg PO BID Bumetanide 1 Mg Tab 1 Mg PO BID Amiodarone (Amiodarone HCl) 200 Mg Tab 200 Mg PO DAILY Narrative Medication List of her home medications reviewed from the nursing note. Review of Systems Except as stated in HPI: all other systems reviewed are Neg Physical Exam Narrative GENERAL: Patient has a left-sided gaze preference, is aphasic, maintaining her own airway SKIN: Focused skin assessment warm/dry. HEAD: Atraumatic. Normocephalic. EYES: Pupils equal and round. No scleral icterus. No injection or drainage. Left-sided gaze preference. Pterygium ENT: No nasal bleeding or discharge. Mucous membranes pink and moist. NECK: Trachea midline. No JVD. CARDIOVASCULAR: Regular rate and rhythm. No murmur appreciated. RESPIRATORY: No accessory muscle use. Clear to auscultation. Breath sounds equal bilaterally. GASTROINTESTINAL: Abdomen soft, non-tender, nondistended. Hepatic and splenic margins not palpable. MUSCULOSKELETAL: No obvious deformities. No clubbing. No cyanosis. No edema. NEUROLOGICAL: Right-sided flaccid paralysis, right-sided facial droop, left gaze preference, a seizure, good gag reflex, following commands to some extent PSYCHIATRIC: Unable to assess Data Data Last Documented VS Vital Signs Date Time Temp Pulse Resp B/P Pulse Ox O2 Delivery O2 Flow Rate FiO2 10/25/16 12:02 95 Nasal Cannula 2 10/25/16 11:51 70 115/66 10/25/16 11:27 98.8 Orders Diet Npo (10/25/16 Lunch) Activity Bed Rest (10/25/16 ) Electrocardiogram (10/25/16 ) I-Stat Creatinine (10/25/16 11:25) I-Stat Profile (10/25/16 11:25) Prothrombin Time / Inr (Pt) (10/25/16 11:25) Act Partial Throm Time (Ptt) (10/25/16 11:25) Complete Blood Count With Diff (10/25/16 11:25) Fibrinogen (10/25/16 11:25) Creatine Kinase (Cpk) (10/25/16 11:25) Troponin I (10/25/16 11:25) Ua Includes Microscopic (10/25/16 11:25) Drug Screen, Random Urine (10/25/16 11:25) Type And Screen (10/25/16 11:25) Ct Brain W/O Iv Contrast(Rout) (10/25/16 ) Cta Brain W Iv Contrast W 3d (10/25/16 11:25) Cta Neck W Iv Contrast W 3d (10/25/16 11:25) Beta Hcg (Quant/Titer) (10/25/16 11:25) Consult Neurology (10/25/16 ) Blood Glucose (10/25/16 11:25) Ecg Monitoring (10/25/16 11:25) Neuro Checks Q2HX12,Q4H (10/25/16 11:25) Nursing Bedside Swallow Assess .ONCE (10/25/16 11:25) Iv Access Insert/Monitor (10/25/16 11:25) NPO (10/25/16 11:25) Oximetry (10/25/16 11:25) Oxygen Administration (10/25/16 11:25) Sodium Chlor 0.9% 1000 Ml Inj (Ns 1000 M (10/25/16 11:25) Resp Oxygen Dewayne C Titrat 1-4 L (10/25/16 11:25) Cath For Specimen (10/25/16 11:25) Sodium Chlorid 0.9% 500 Ml Inj (Ns 500 M (10/25/16 11:45) (Hub Use Only)Inp Phy Cons/Ref (10/25/16 ) Iohexol 350 Inj (Omnipaque 350 Inj) (10/25/16 12:09) Verapamil Inj (Isoptin Inj) (10/25/16 12:35) Midazolam Inj (Versed Inj) (10/25/16 12:57) Admit Order (Ed Use Only) (10/25/16 13:00) Thrombectomy Intracranial (10/25/16 ) Labs Laboratory Tests Test 10/25/16 10/25/16 10/25/16 11:25 12:33 12:41 White Blood Count 5.7 TH/MM3 Red Blood Count 4.27 MIL/MM3 Hemoglobin 12.3 GM/DL Bedside Hemoglobin 13.3 G/DL Hematocrit 37.9 % Bedside Hematocrit 39.0 % Mean Corpuscular Volume 88.8 FL Mean Corpuscular Hemoglobin 28.9 PG Mean Corpuscular Hemoglobin 32.5 % Concent Red Cell Distribution Width 17.2 % Platelet Count 274 TH/MM3 Mean Platelet Volume 7.7 FL Neutrophils (%) (Auto) 61.6 % Lymphocytes (%) (Auto) 27.4 % Monocytes (%) (Auto) 8.9 % Eosinophils (%) (Auto) 0.9 % Basophils (%) (Auto) 1.2 % Neutrophils # (Auto) 3.5 TH/MM3 Lymphocytes # (Auto) 1.6 TH/MM3 Monocytes # (Auto) 0.5 TH/MM3 Eosinophils # (Auto) 0.1 TH/MM3 Basophils # (Auto) 0.1 TH/MM3 CBC Comment DIFF FINAL Differential Comment Prothrombin Time 14.8 SEC Prothromb Time International 1.3 RATIO Ratio Activated Partial 28.5 SEC Thromboplast Time Fibrinogen 377 mg/dL Bedside Sodium 137 MMOL/L Bedside Potassium 4.0 MMOL/L Bedside Chloride 97 MMOL/L Bedside Blood Urea Nitrogen 32 MG/DL Bedside Creatinine 1.5 MG/DL Bedside Glucose 273 MG/DL Total Creatine Kinase 54 U/L Troponin I 0.88 NG/ML Human Chorionic Gonadotropin, 4 MIU/ML Quant Blood Type AB POSITIVE Antibody Screen NEGATIVE Urine Color YELLOW Urine Turbidity CLEAR Urine pH 6.0 Urine Specific [place] 1.050 Urine Protein TRACE mg/dL Urine Glucose (UA) NEG mg/dL Urine Ketones NEG mg/dL Urine Occult Blood NEG Urine Nitrite NEG Urine Bilirubin NEG Urine Urobilinogen LESS THAN 2.0 MG/DL Urine Leukocyte Esterase NEG Urine RBC 1 /hpf Urine WBC 1 /hpf Urine Squamous Epithelial <1 /hpf Cells Urine Hyaline Casts 4 /lpf Urine Mucus FEW /lpf Urine Opiates Screen NEG Urine Barbiturates Screen NEG Urine Amphetamines Screen NEG Urine Benzodiazepines Screen POS Urine Cocaine Screen NEG Urine Cannabinoids Screen NEG MDM Medical Decision Making Medical Screen Exam Complete: Yes Emergency Medical Condition: Yes Medical Record Reviewed: Yes Differential Diagnosis Embolic CVA, head bleed Narrative Course 12:57 PM as per the stroke protocol neurologist Dr. Juan was contacted. He agreed with no TPA since that time had elapsed more than [address] was negative. I had ordered a CT angiogram of the brain and neck which showed a large blood clot in the left MCA. IR suggested clot retrieval since it was unable to clot retrieval. Dr. Juan was okay with that. Patient currently is over an IR. I spoke with the ICU sweatband shaper who has accepted the patient. Critical Care Narrative Aggregate critical care time was 60 minutes. Time to perform other separately billable procedures was not included in the critical care time. My time did not include minutes spent treating any other patients simultaneously or on activities that did not directly contribute to the patient's treatment. The services I provided to this patient were to treat and/or prevent clinically significant deterioration that could result in: Stroke alert, IR I provided critical care services requiring my management, as noted below: Chart data review, documentation time, medication orders and management, vital sign assessments/reviewing monitor data, ordering and reviewing lab tests, ordering and interpreting/reviewing x-rays and diagnostic studies, care of the patient and discussion of the patient with the admitting physicians. Procedures EKG Prior to Arrival: No Physician Communication Physician Communication Dr. Juan, Dr. Pearson, Dr. Lima Diagnosis Primary Impression: Acute CVA (cerebrovascular accident) Admitting Information Admitting Physician Requests: Admit Isiah Arvizu MD Oct 25, 2016 13:00
[2016-10-25 13:01] LABS: BLOOD, URINE NEG (NEG); GLUCOSE,URINE NEG (NEG); HYALINE CAST, URINE 4 /lpf (RARE); KETONE, URINE NEG (NEG); MUCUS URINE FEW /lpf (OCC); NITRITE,URINE NEG (NEG); SQUAMOUS EPITHELIAL CELL URINE <1 /hpf (0-5); URINE COLOR YELLOW (YELLW/STRAW)
[2016-10-25 13:07] LABS: AMPHETAMINE, URINE NEG (NEG); BARBITURATES, URINE NEG (NEG); COCAINE, URINE NEG (NEG)
[2016-10-25] MEDS ORDERED: KETAMINE HCL 500 MG/5 ML VIAL ONE (13:45)
--- NOTE | 2016-10-25 13:56 | PD.RAD ---
Post Procedure Progress Note Pre Procedure Diagnosis: (1) Acute CVA (cerebrovascular accident) Post Procedure Diagnosis: (1) Acute CVA (cerebrovascular accident) Procedure Date: Oct 25, 2016 Supervising Radiologist: Trae Lima Proceduralist/Assist: Fred Doe, RT(R), Naomi Villalba RT(R)(), Mango Whitaker RT(R)() Anesthesia: General Plan of Activity Patient to Unit: PACU Patient Condition: Fair See PACS Report for procedural detail/treatment Vascular-Arterial Procedure Procedure 1 Procedure Site: Cerebral (left mca) Procedure(s): Angiogram, Embolectomy Access Access Site(s): Right Femoral Artery Closure Site(s): Right vascular closure device (Perclose) Findings: Large clot at ICA terminus/M1 segment. Two passes with .068 Penumbra with nondenominational of antegrade flow. Trae Lima MD Oct 25, 2016 13:56
[2016-10-25] MEDS ORDERED: IODIXANOL 320 MG/ML 50 ML VIAL (for RAD SPEC) I-ARTERIAL ONE (13:57)
[2016-10-25] MEDS ORDERED: CHLORHEXIDINE GLUCONATE 2 % 1 PACK (2 CLOTHS) TOP PRN (14:15)
[2016-10-25] MEDS ORDERED: DEXTROSE 50% IN WATER 50 ML VIAL(D50) IV PUSH PRN ×2 (14:15→14:30)
[2016-10-25] MEDS ORDERED: RESP: ALBUTEROL 2.5 MG/IPRATROPIUM 0.5 MG NEB (PRN) INH (14:15)
[2016-10-25] MEDS ORDERED: GLUCAGON 1 MG/ML VIAL OTHER PRN ×2 (14:15→14:30)
[2016-10-25] MEDS ORDERED: MISCELLANEOUS NURSING INFORMATION XX SCH (14:15)
[2016-10-25] MEDS ORDERED: SODIUM CHLOR 0.9% 1000 ML INJ 1,000 ML IV SCH (14:30)
[2016-10-25] MEDS ORDERED: INSULIN NovoLIN REGULAR SUPPLEMENTAL SCALE SQ SCH (15:00)
[2016-10-25] MEDS: INSULIN NovoLIN REGULAR SUPPLEMENTAL SCALE SQ SCH ×2 (15:00→21:00)
[2016-10-25] MEDS ORDERED: LEVOFLOXACIN 500 MG PREMIX INJ 100 ML IV ONE (15:13)
[2016-10-25] MEDS ORDERED: fentaNYL CITRATE 250 MCG/5 ML AMP ONE (15:14)
[2016-10-25] MEDS: RESP: ALBUTEROL 2.5 MG/IPRATROPIUM 0.5 MG NEB (SCH) INH ×2 (15:28→21:02)
--- NOTE | 2016-10-25 15:44 | MH ---
cc: JIM DELACRUZ M.D. DATE OF ADMISSION: 10/25/2016 DATE OF : 1945 HISTORY OF PRESENT ILLNESS The patient is a 70-year-old female with multiple medical co-morbidities which include hypertension, coronary artery disease, cardiomyopathy with an EF of 20-25% from the echo dated November 2015, atrial flutter, hyperlipidemia and diabetes mellitus. The patient presented to [facility] ED with altered mental status and was unable to move her right side or speak. Her friend called 911 and she was brought in by EMS as a Stroke Alert. She was last seen normal at 6:45 this morning. She was found to have right-sided weakness and a fixed gaze to the left. Her initial CT scan of the brain was negative for acute disease. The patient had a CTA of the head which showed embolus to the right ICA. She was taken to the interventional radiology suite where she underwent angiogram and was found to have a large clot at the ICA, M1 segment, status post embolectomy with christianity of antegrade flow. During the procedure she was given a heparin bolus. The patient had a blood pressure of 110/72 on arrival. She takes Eliquis 5 mg b.i.d. at home. The patient was seen by Dr. Juan and plan to repeat CT scan of the brain in 24 hours. Most of the history was taken from reviewing the medical records as the patient is nonverbal. PAST MEDICAL HISTORY 1. Hypertension. 2. Hyperlipidemia. 3. Diabetes mellitus. 4. Atrial flutter. 5. Coronary artery disease. 6. Cardiomyopathy with EF of 20-25%. PAST SURGICAL HISTORY 1. Previous cholecystectomy. 2. Previous hysterectomy. 3. Previous pacemaker / defibrillator placement. ALLERGIES ASPIRIN. SOCIAL HISTORY Non-smoker, non-drinker. MEDICATIONS Reported medications include: 1. Vitamin C. 2. Restoril. 3. Zocor. 4. Multivitamin. 5. Metformin. 6. Iron. 7. Glipizide. 8. Eliquis. 9. Digoxin. 10.Plavix. 11.Coreg. 12.Bumex. 13.Amiodarone. FAMILY HISTORY Noncontributory. REVIEW OF SYSTEMS As per HPI. The rest of the review of systems is limited as the patient is nonverbal. PHYSICAL EXAMINATION GENERAL: A 70-year-old female lying in bed in no respiratory distress, awake, however unable to speak with left gaze preference. VITAL SIGNS: Afebrile, pulse 79, blood pressure 105/69, saturation 99%. HEENT: Atraumatic, normocephalic. Pupils equal, round and reactive to light and accommodation. Extraocular muscles intact. Conjunctiva pink. Non-icteric sclera. Oral mucosa within normal. NECK: Supple. No JVD, adenopathy or thyromegaly. Trachea is in the midline. CARDIOVASCULAR: Regular rate rhythm. Normal S1, S2. No murmurs, rubs or gallops noted. PULMONARY: Bilateral equal entry. No rales or wheezing. ABDOMEN: Soft, nontender, no distention. Positive bowel sounds. EXTREMITIES: No cyanosis, clubbing or edema. NEUROLOGIC: Right-sided flaccid weakness with right-sided facial droop, left gaze preference. Awake, however, nonverbal. LABORATORY DATA Sodium of 137, potassium 4, chloride 97, BUN 32, creatinine 1.5, glucose 273. Troponin 8.88, total CK 54. WBC 5.7, hemoglobin 12, hematocrit 37, platelet count 274. INR 1.3, PT 14.8, PTT 28.5. Urine drug screen positive for benzodiazepine. RADIOGRAPHIC STUDIES CT scan of the brain: Negative for acute disease. CTA of the head: Embolus to the ICA terminus/left AR segment. IMPRESSION 1. Acute left-sided CVA. 2. Altered mental status. 3. Respiratory insufficiency. 4. Mildly elevated troponin. 5. Acute kidney injury. 6. Hypertension. 7. Coronary artery disease. 8. Cardiomyopathy with EF of 20-25%. 9. Diabetes mellitus. 10.Hyperlipidemia. PLAN/RECOMMENDATIONS 1. Monitor neuro status closely and avoid any sedatives. The patient is status post angiogram with embolectomy of a large clot in the ICA left M1 segment with christianity of antegrade flow. Case discussed with Dr. Juan from the neurology service. Will repeat CT scan of the brain in 24 hours and maintain systolic blood pressure less than 160. 2. Hold Eliquis and any form of anticoagulation for now. 3. Continue with oxygen and maintain sats above 92%. 4. Bronchodilators and aspiration precautions. 5. Monitor heart rate and blood pressure closely and maintain MAP greater than 65 mmHg. 6. Keep systolic blood pressure less than 160 per neurology. 7. Monitor cardiac enzymes with troponin and will obtain a 2-D echo to evaluate LV function and will obtain a 2-D echo. Her last echo from November 2015 showed an EF of 20-25%. 8. Check baseline chest x-ray. 9. Monitor renal function, I's and O's, and avoid nephrotoxins. 10.Gentle IV hydration given her poor EF will place on normal saline at 75 mL an hour. 11.Keep n.p.o. for now and place on Protonix 40 mg IV daily. 12.Monitor for signs of infection which includes fever and WBC. We will obtain a baseline chest x-ray. Her urinalysis in the ED was negative for leukocyte esterase, nitrite and only 1 wbc. 13.Monitor CBC and coags. 14.Place on sliding scale insulin with Accu-Chek q.6h. for glycemic control. 15.GI prophylaxis with Protonix 40 mg daily, and DVT prophylaxis with SCDs. 16.Further recommendations will be based on the hospital course. The case was discussed with Dr. Juan and the ICU nursing staff. MD YOVANA Austin/SHANELL /2:59 PM /3:21 PM
--- NOTE | 2016-10-25 15:51 | RADRPT ---
EXAM DATE/TIME: 10/25/2016 14:19 [facility] COMPARISON: CHEST SINGLE AP, October 12, 2016, 13:16. INDICATIONS : Shortness of breath. MEDICAL HISTORY : Chronic obstructive pulmonary disease. Asthma SURGICAL HISTORY : Pacemaker. ENCOUNTER: Initial ACUITY: 1 day PAIN SCORE: Non-responsive. LOCATION: Bilateral chest FINDINGS: Pacemaker is implanted in the left chest. The heart is enlarged. There is mild to moderate intersti tial edema present. Minimal bibasilar parenchymal changes are evident worse on the left than the rig ht. CONCLUSION: Mild increase in interstitial edema. Herve Fam MD FACR on October 25, 2016 at 15:37 Board Certified Radiologist. This report was verified electronically.
--- NOTE | 2016-10-25 16:09 | RADRPT ---
EXAM DATE/TIME: 10/25/2016 12:40 [facility] COMPARISON: No previous studies available for comparison. INDICATIONS : Patient is in need of a cerebral angiogram with thrombectomy due to intracranial thrombus. MEDICAL HISTORY : History of CHF, asthma, irregular heartbeat, hypercholesteremia, COPD, CAD. SURGICAL HISTORY : History of ICD placement, cholecystectomy, appendectomy, hysterectomy. ENCOUNTER: Initial ACUITY: 1 day PAIN SCORE: 0/10 FLUORO TIME: 13.3 minutes IMAGE SERIES: 10 ACCESS SITE: Right Femoral artery SEDATION TIME: 60 minutes CONTRAST: 50 cc Visipaque (iodixanol) MEDICATION(S): 1.) 2 mg midazolam (Versed) IV 2.) 3000 units Heparin IV DEVICE(S): 1.) Left ICA/M1 segment mechanical thrombectomy Jose 68 2.) Left M2 segment mechanical thrombectomy Jose 68 3.) Right common femoral artery 6fr Perclose TIMELINE: Interventional team called: N/A Interventional team arrived: N/A Interventional team ready: N/A Patient arrival: 1241 pm Groin puncture: 1256 pm Recanalization: [id number] PROCEDURE : 1. Ultrasound-guided puncture of the access site. 2. Angiography of the access site prior to closure device. 3. Conscious sedation with continuous EKG and Oximetry monitoring. 4. Percutaneous closure of the access site. 5. Angiography of the temporal branch of the left MCA 6. Penumbra embolectomy, left MCA (2 passes) The risks, benefits and alternatives to the procedure were explained and verbal and written consent w as obtained. The site was prepped in sterile fashion. Full sterile technique was used, including ca p, mask, sterile gloves and gown and a large sterile sheet. Hand hygiene and 2% chlorhexidine and/or betadine/alcohol prep was utilized per protocol for cutaneous antisepsis. The skin and subcutaneous tissues were infiltrated with local anesthetic solution. With ultrasound and fluoroscopic guidance the selected artery was punctured and a vascular sheath was placed. Angiography of the common femoral artery was performed for evaluation prior to percutaneous closure device placement. GUI 2 catheter was advanced to the aortic arch and used to select the left common carotid artery. Cath eter and wire were advanced into the distal common carotid and position was confirmed with positive c ontrast. The catheter and wire were then directed into the external carotid circulation. Wire was exc hanged for the Magic torque to facilitate placement of the 6 Amharic neuron catheter. Catheter was adv anced to the common carotid. The wire was withdrawn from the external and redirected into the interna l carotid. The neuron catheter was then advanced into the petrous portion of the internal. Position w as confirmed the positive contrast. This run was used as a roadmap to facilitate intervention. Gobble pressure bag was connected to the side-port sheath Coaxially loaded agility wire, Marksman catheter and 0.068 penumbra catheter were then advanced into the sheath. A second pressure sheath was connected to the Touhy Earl side-port of the Penumbra jessica ter. The Marksman catheter and agility wire were then advanced up to the of the thrombus at the junct ion of the ICA terminus and M1 segment. A combination was then advanced past the thrombus into the te mporal branch of the MCA. Position was confirmed the positive contrast. Over the microcatheter and wi re, the penumbra catheter was advanced to the front edge of the thrombus. The Marksman catheter and a gility wire as well as the Touhy Earl were then removed and the Penumbra catheter connected directly to vacuum suction. Vacuum aspiration was maintained for approximately 90 seconds and the entire ivana ce removed. Side-port of the non-catheter was aspirated to exclude thrombus within the sheath. Contra st injection showed significant debulking of the large left MCA thrombus but there was still occlusio n at the junction of the M2 and M3 segments just distal to the lenticular striates. Therefore, a seco nd pass was made as described above. Again, the Marksman catheter and agility wire were advanced into the temporal branch. Position was confirmed with positive contrast. Again, aspiration was maintained for 90 seconds. The entire device was removed while aspirating the side-port of the neuron catheter. Contrast injection showed complete embolectomy with samaritan of antegrade flow in the left MCA te rritory Hemostasis was obtained with the prescribed medicated closure device. Conscious sedation was perform ed with the prescribed dosages and duration as above in the presence of an independent trained radiol ogy nurse to assist in the monitoring of the patient. EKG and oximetry remained stable throughout th e procedure. CONCLUSION: 1. Successful left ICA terminus/M1 embolectomy as above. 2. This was a large thrombus. 2 passes were necessary to completely remove the clot burden. Trae Lima MD on October 25, 2016 at 15:48 Board Certified Radiologist. This report was verified electronically.
[2016-10-25 16:30] LABS: AUTOMATED NEUTROPHIL # 4.7 TH/MM3 (1.8-7.7); BASOPHIL # 0.1 TH/MM3 (0-0.2); BASOPHIL % 0.9 % (0.0-2.0); EOSINOPHIL % 0.3 % (0.0-4.0); HEMATOCRIT 37.1 % (35.0-46.0); HEMO FLAGS DIFF FINAL; LYMPHOCYTE # 1.3 TH/MM3 (1.0-4.8); MEAN CELL VOLUME 88.2 FL (80.0-100.0); MEAN CORPUSCULAR HEMOGLOBIN 29.6 PG (27.0-34.0); MEAN CORPUSCULAR HGB CONC 33.5 % (32.0-36.0); MONO % 6.6 % (0.0-8.0); NEUT % 72.2 % (16.0-70.0); PLATELET COUNT 320 TH/MM3 (150-450); RED CELL DISTRIBUTION WIDTH 17.2 % (11.6-17.2); WHITE BLOOD COUNT 6.5 TH/MM3 (4.0-11.0)
[2016-10-25 17:04] LABS: ANION GAP 13 MEQ/L (5-15); AST (GOT) 21 U/L (15-37); BICARBONATE 22.1 MEQ/L (21.0-32.0); BLOOD UREA NITROGEN 30 MG/DL (7-18); CHLORIDE 102 MEQ/L (98-107); GLOMERULAR FILTRATION RATE 54 ML/MIN (>89); MAGNESIUM 2.4 MG/DL (1.5-2.5); SODIUM (NA) 137 MEQ/L (136-145)
--- NOTE | 2016-10-25 17:04 | EC ---
Study Study Date:10/25/2016 STUDY CONCLUSIONS SUMMARY - Left ventricle: The cavity size was severely dilated. Wall thickness was normal. Systolic function was severely reduced. The estimated ejection fraction was 20%, in the range of 20% to 25%. Diffuse hypokinesis. Akinesis and scarring of the inferoposterior myocardium. - Aortic valve: Valve area: 1.7cm^2(VTI). Valve area: 2cm^2 (Vmax). - Mitral valve: Moderate regurgitation. - Left atrium: The atrium was mildly dilated. - Tricuspid valve: Moderate regurgitation. - Pulmonary arteries: Systolic pressure was mildly to moderately increased. PA peak pressure: 55mm Hg (S). If LV function is below 40, please consider prescribing an ACEI or ARB or document rationale for non-use. PROCEDURE DATA STUDY STATUS: Elective. Procedure: Transthoracic echocardiography. Image quality was good. Scanning was performed from the parasternal, apical, and subcostal acoustic windows. Study completion: The patient tolerated the procedure well. Transthoracic echocardiography. M-mode, complete 2D, complete spectral Doppler, and color Doppler. Height: Height: 65in. Weight: Weight: 113.8lb. Body mass index: BMI: 19kg/m^2. Body surface area: BSA: 1.56m^2. Patient status: Inpatient. CARDIAC ANATOMY LEFT VENTRICLE: The cavity size was severely dilated. Wall thickness was normal. Systolic function was severely reduced. The estimated ejection fraction was 20%, in the range of 20% to 25%. Diffuse hypokinesis. Regional wall motion abnormalities: Akinesis and scarring of the inferoposterior myocardium. AORTIC VALVE: Trileaflet; normal thickness leaflets. Doppler: Transvalvular velocity was within the normal range. There was no stenosis. No regurgitation. Valve area: 1.7cm^2(VTI). Indexed valve area: 1.09cm^2/m^2 (VTI). Valve area: 2cm^2 (Vmax). Indexed valve area: 1.28cm^2/m^2 (Vmax). Mean gradient: 1mm Hg (S). AORTA: Aortic root: The aortic root was normal in size. MITRAL VALVE: Structurally normal valve. Doppler: Transvalvular velocity was within the normal range. There was no evidence for stenosis. Moderate regurgitation. Peak gradient: 2mm Hg (D). LEFT ATRIUM: The atrium was mildly dilated. RIGHT VENTRICLE: The cavity size was normal. Wall thickness was normal. Pacer wire or catheter noted in right ventricle. PULMONIC VALVE: Doppler: Transvalvular velocity was within the normal range. There was no evidence for stenosis. No regurgitation. TRICUSPID VALVE: Structurally normal valve. Doppler: Transvalvular velocity was within the normal range. Moderate regurgitation. PULMONARY ARTERY: The main pulmonary artery was normal-sized. Systolic pressure was mildly to moderately increased. RIGHT ATRIUM: The atrium was normal in size. PERICARDIUM: There was no pericardial effusion. SYSTEMIC VEINS: Inferior vena cava: The vessel was normal in size. Patient weight: 113.8lb _Ejection fraction:_ 65-75% _Fractional shortening:_ 32% up to 5Kg 5-11.5Kg 11.6-22.9Kg 23-45Kg 45-57Kg Aortic Root 7-13 <17 13-22 17-27 17-27 LA diam 6-13 <23 24-38 33-47 37-40 RVID 10-17 7-15 7-15 7-18 8-17 LVIDd 12-22 <32 24-38 33-47 37-40 LVPW 2-4 3-6 5-7 6-8 7-8 IVS 2-4 3-6 5-7 6-8 7-8 BASIC MEASUREMENTS ADULT NORMAL Left ventricle LV internal dimension, ED, chordal *68.1 mm 43-52 level, PLAX LV internal dimension, ES, chordal *62.4 mm 23-38 level, PLAX Fractional shortening, chordal level, *8 % >29 PLAX LV posterior wall thickness, ED 6.65 mm IVS/LVPW ratio, ED *1.56 <1.3 Ventricular septum Septal thickness, ED 10.4 mm Aortic valve Leaflet separation 22 mm 15-26 Aorta Root diameter, ED 33 mm Left atrium Anterior-posterior dimension 38 mm Anterior-posterior dimension index *2.44 cm/m^2 <2.2 BASIC MEASUREMENTS ADULT NORMAL Aortic valve Leaflet separation 22 mm 15-26 DOPPLER MEASUREMENTS ADULT NORMAL Main pulmonary artery Pressure, S *55 mm Hg =30 Aortic valve Peak velocity, S 65.5 cm/s Mean velocity, S 43.3 cm/s VTI, S 8.4 cm Mean gradient, S 1 mm Hg Valve area, VTI 1.7 cm^2 Valve area index, VTI 1.09 cm^2/m^2 Valve area, Vmax 2 cm^2 Valve area index, Vmax 1.28 cm^2/m^2 Mitral valve Peak E-wave velocity 76.3 cm/s Peak gradient, D 2 mm Hg Tricuspid valve Regurgitant peak velocity 315 cm/s Peak RV-RA gradient, S 40 mm Hg Maximal regurgitant velocity 315 cm/s Right ventricle RV pressure, S *55 mm Hg <30 LEGEND: Mean values are shown as u=mean value. Asterisk (*) smith values outside specified normal range. Prepared and signed by Maverick Dye [id number]
[2016-10-25 17:07] LABS: ALKALINE PHOSPHATASE 70 U/L (45-117); ALT (GPT) 18 U/L (10-53); TOTAL BILIRUBIN ADULT 0.7 MG/DL (0.2-1.0)
[2016-10-25 21:44] LABS: HDL CHOLESTEROL 44.6 MG/DL (40.0-60.0)
[2016-10-26] VITALS (11 sets, daily range): BP systolic 107–164; BP diastolic 66–91; PULSE 62–80; RESP 16–32; TEMP 97.5–98.5; O2SAT 91–100
[2016-10-26 02:36] LABS: AUTOMATED NEUTROPHIL # 6.9 TH/MM3 (1.8-7.7); BASOPHIL # 0.1 TH/MM3 (0-0.2); BASOPHIL % 0.8 % (0.0-2.0); EOSINOPHIL % 0.4 % (0.0-4.0); HEMATOCRIT 36.2 % (35.0-46.0); HEMO FLAGS DIFF FINAL; LYMPH % 17.6 % (9.0-44.0); LYMPHOCYTE # 1.7 TH/MM3 (1.0-4.8); MEAN CELL VOLUME 87.6 FL (80.0-100.0); MEAN CORPUSCULAR HEMOGLOBIN 29.3 PG (27.0-34.0); MEAN CORPUSCULAR HGB CONC 33.4 % (32.0-36.0); MONO % 10.3 % (0.0-8.0); NEUT % 70.9 % (16.0-70.0); PLATELET COUNT 305 TH/MM3 (150-450); RED BLOOD COUNT 4.13 MIL/MM3 (4.00-5.30); RED CELL DISTRIBUTION WIDTH 16.9 % (11.6-17.2); WHITE BLOOD COUNT 9.8 TH/MM3 (4.0-11.0)
[2016-10-26 02:49] LABS: BICARBONATE 23.5 MEQ/L (21.0-32.0); POTASSIUM 4.2 MEQ/L (3.5-5.1)
[2016-10-26] MEDS: INSULIN NovoLIN REGULAR SUPPLEMENTAL SCALE SQ SCH ×4 (03:00→21:00)
[2016-10-26] MEDS: RESP: ALBUTEROL 2.5 MG/IPRATROPIUM 0.5 MG NEB (SCH) INH ×4 (03:54→22:12)
[2016-10-26] MEDS: CHLORHEXIDINE GLUCONATE 2 % 1 PACK (2 CLOTHS) TOP SCH (04:00)
--- NOTE | 2016-10-26 05:38 | MB ---
cc: JOSE KOENIG M.D. DATE OF CONSULTATION 10/25/2016 REASON FOR CONSULTATION She is 70 years old, seen because of and a Stroke Alert. HISTORY OF PRESENT ILLNESS I discussed the case immediately after the patient arrived in the emergency room which was approximately 5 hours after she was last seen as normal this morning. She was noted to have a severe right hemiparesis; she was flaccid and a phasic. CT brain was done and negative for hemorrhage. The CT angio showed a clot in the left MCA/distal internal carotid artery. At that point we felt she was a candidate for interventional for embolectomy. The procedure was subsequently done. As she was over 4-1/2 from possible onset of symptoms, t-PA was not offered. She through the thrombectomy well. I saw her shortly after that when she was already in the intensive care unit. At that point I realized that she was on Eliquis and there was a significant cardiac history. PHYSICAL EXAMINATION On exam the patient being compressed on her right groin but she was actually verbalizing some few words. She followed simple commands. She gripped of both hands and she moved the right arm and the right leg. She was obviously weak on the right in comparison to the left but this seemed to be a quite significant improvement in her neurologic status. There was right facial weakness. Pupils about same size, reactive. LABORATORY DATA The laboratory data was reviewed. CBC was normal. INR was 1.3. 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 See above discussion. There is a history of some significant cardiomyopathy with a poor ejection fraction. I realize the patient has been on Eliquis. 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 PLAN 1. We will try to maintain her systolic of blood pressure below 160 at this point, 2. follow up CT brain or MRI of brain in the morning before restarting antiplatelet or anticoagulation. 3. Because of her cardiac history, certainly she will need to be back on long-term anticoagulation. 4. We will also a check lipid profile. I have discussed the findings with the patient's daughter at the bedside when I saw the patient a few hours ago in the intensive care unit. I will follow her with you. Thank you for asking us to assist in her care. MD MARIS Jo/SSB /5:36 PM /5:29 AM
--- NOTE | 2016-10-26 08:23 | PD.CONS ---
HPI Service CV Consult Requested By Reason for Consult elevated troponin, cardiomyopathy Primary Care Physician Unknown History of Present Illness Here with CAD, ischemic cardiomyopathy s/p ICD, atrial flutter s/p ablation on Eliquis, HTN and hyperlipidemia. She is admitted for CVA. (Slick Crespo) Review of Systems Consitutional: DENIES: Fatigue, Fever, Chills, Weight gain, Weight loss Eyes: DENIES: Amaurosis Fugax, Change in vision HEENT: DENIES: Lightheadedness, Change in hearing Respiratory: DENIES: See HPI, Cough, Snoring, Shortness of breath, Wheezing, Sputum production Cardiovascular: COMPLAINS OF: See HPI Gastrointestinal: DENIES: Nausea, Vomiting, Change in bowel habits, Reflux, Bloody stools, Melena Genitourinary: DENIES: Urinary incontinence, Difficulty voiding Integumentary: DENIES: Rash Neurologic: DENIES: Tingling or numbness, Memory problems, Poor Balance, Stroke symptoms Musculoskeletal: DENIES: Joint pain, Muscle pain, Limited range of motion, Back pain Psychiatric: DENIES: Anxiety, Depression, Sleep disturbances Hematologic: DENIES: Bruising tendencies, Bleeding tendencies Endocrine: DENIES: Weight gain, Weight loss, Thyroid disease (Slick Crespo ) Past Family Social History Allergies: Coded Allergies: Aspirin (Verified Allergy, Mild, NAUSEA/VOMITING, 03/05/16) Past Medical History see HPI type 2 diabetes Past Surgical History FLORINDA cholecystectomy Reported Medications Reported Meds & Active Scripts Active Reported Vitamin C (Ascorbic Acid) 500 Mg Tab 500 Mg PO DAILY Tizanidine (Tizanidine HCl) 4 Mg Cap 4 Mg PO BID PRN Restoril (Temazepam) 30 Mg Cap 30 Mg PO HS PRN Zocor (Simvastatin) 40 Mg Tab 40 Mg PO DAILY Multi Vitamin (Multiple Vitamin) 1 Tab Tab 1 Tab PO DAILY Metformin (Metformin HCl) 500 Mg Tab 500 Mg PO BID With meals Losartan (Losartan Potassium) 25 Mg Tab 25 Mg PO DAILY Iron (Ferrous Sulfate) 325 Mg Tab 325 Mg PO DAILY Take Glipizide 5 Mg Tab 5 Mg PO BID Take 30 minutes before a meal Eliquis (Apixaban) 5 Mg Tab 5 Mg PO BID Lanoxin (Digoxin) 0.125 Mg Tab 0.125 Mg PO DAILY Plavix (Clopidogrel Bisulfate) 75 Mg Tab 75 Mg PO DAILY Coreg (Carvedilol) 6.25 Mg Tab 6.25 Mg PO BID Bumetanide 1 Mg Tab 1 Mg PO BID Amiodarone (Amiodarone HCl) 200 Mg Tab 200 Mg PO DAILY Active Ordered Medications Current Medications Medications (Trade) Dose Ordered Sig/Gisela Route Start Time Stop Time Status Last Admin Miscellaneous Information 1 Q361D XX 10/25/16 14:15 10/25/16 17:39 (Chlorhexidine 2% Cloth) 3 pack Taper DAILY@04 TOP 10/26/16 04:00 10/22/17 03:59 10/26/16 04:00 (Chlorhexidine 2% Cloth) 3 pack UNSCH PRN TOP 10/25/16 14:15 (D50w (Vial) Inj) 25 ml UNSCH PRN IV PUSH 10/25/16 14:30 (Glucagon Inj) 1 mg UNSCH PRN OTHER 10/25/16 14:30 (NovoLIN R SUPPLEMENTAL SCALE) 1 Q6H SQ 10/25/16 15:00 (Slick Crespo) Physical Exam Vital Signs Vital Signs Date Time Temp Pulse Resp B/P Pulse Ox O2 Delivery O2 Flow Rate FiO2 10/26/16 07:52 95 Partial Rebreather 15.00 10/26/16 06:00 79 10/26/16 04:00 98.4 79 31 107/66 91 10/26/16 04:00 79 10/26/16 02:00 79 10/26/16 00:00 79 10/26/16 00:00 97.5 79 32 115/73 98 10/25/16 22:00 79 31 103/68 100 10/25/16 22:00 79 10/25/16 21:21 99 Partial Rebreather 15.00 10/25/16 21:00 79 33 107/78 99 10/25/16 20:00 79 10/25/16 20:00 97.6 79 27 117/75 96 10/25/16 19:00 79 28 114/74 99 10/25/16 18:00 97.4 79 31 111/79 99 10/25/16 18:00 79 10/25/16 17:00 97.4 79 29 117/72 96 10/25/16 16:30 97.5 79 26 111/77 100 10/25/16 16:00 80 10/25/16 16:00 97.6 80 27 110/72 100 10/25/16 15:30 97.6 80 29 107/67 100 10/25/16 15:00 97.4 79 28 110/77 97 10/25/16 14:45 97.5 79 30 108/76 99 10/25/16 14:30 97.2 79 29 115/70 97 10/25/16 14:15 97.3 79 26 103/71 95 10/25/16 12:02 95 Nasal Cannula 2 10/25/16 12:02 95 Nasal Cannula 2 10/25/16 11:51 70 115/66 10/25/16 11:41 80 118/66 10/25/16 11:31 70 111/76 10/25/16 11:27 98.8 80 110/72 95 Nasal Cannula 3 10/25/16 11:18 97 Nasal Cannula 2.00 10/25/16 11:18 97 2.00 Physical Exam GENERAL: Well-nourished, well-developed patient in no apparent distress. NECK: No JVD. No carotid bruit. CARDIOVASCULAR: Regular rate and rhythm. S1/S2 no murmur, rub, or gallop. RESPIRATORY: No accessory muscle use. Clear to auscultation. Breath sounds equal bilaterally. GASTROINTESTINAL: Abdomen soft, non-tender, nondistended. MUSCULOSKELETAL: Extremities without clubbing, cyanosis, or edema. Laboratory Laboratory Tests Test 10/25/16 10/25/16 10/25/16 10/25/16 11:25 12:33 12:41 15:30 White Blood Count 5.7 Red Blood Count 4.27 Hemoglobin 12.3 Bedside Hemoglobin 13.3 Hematocrit 37.9 Bedside Hematocrit 39.0 Mean Corpuscular Volume 88.8 Mean Corpuscular Hemoglobin 28.9 Mean Corpuscular Hemoglobin 32.5 Concent Red Cell Distribution Width 17.2 Platelet Count 274 Mean Platelet Volume 7.7 Neutrophils (%) (Auto) 61.6 Lymphocytes (%) (Auto) 27.4 Monocytes (%) (Auto) 8.9 Eosinophils (%) (Auto) 0.9 Basophils (%) (Auto) 1.2 Neutrophils # (Auto) 3.5 Lymphocytes # (Auto) 1.6 Monocytes # (Auto) 0.5 Eosinophils # (Auto) 0.1 Basophils # (Auto) 0.1 CBC Comment DIFF FINAL Differential Comment Prothrombin Time 14.8 Prothromb Time International 1.3 Ratio Activated Partial 28.5 Thromboplast Time Fibrinogen 377 Bedside Sodium 137 Bedside Potassium 4.0 Bedside Chloride 97 Bedside Blood Urea Nitrogen 32 Bedside Creatinine 1.5 Bedside Glucose 273 Total Creatine Kinase 54 Troponin I 0.88 Human Chorionic Gonadotropin, 4 Quant Blood Type AB POSITIVE Antibody Screen NEGATIVE Urine Color YELLOW Urine Turbidity CLEAR Urine pH 6.0 Urine Specific [place] 1.050 Urine Protein TRACE Urine Glucose (UA) NEG Urine Ketones NEG Urine Occult Blood NEG Urine Nitrite NEG Urine Bilirubin NEG Urine Urobilinogen LESS THAN 2.0 Urine Leukocyte Esterase NEG Urine RBC 1 Urine WBC 1 Urine Squamous Epithelial <1 Cells Urine Hyaline Casts 4 Urine Mucus FEW Urine Opiates Screen NEG Urine Barbiturates Screen NEG Urine Amphetamines Screen NEG Urine Benzodiazepines Screen POS Urine Cocaine Screen NEG Urine Cannabinoids Screen NEG Nasal Screen MRSA (PCR) NEGATIVE Test 10/25/16 10/25/16 10/26/16 15:34 20:19 02:15 White Blood Count 6.5 9.8 Red Blood Count 4.20 4.13 Hemoglobin 12.4 12.1 Hematocrit 37.1 36.2 Mean Corpuscular Volume 88.2 87.6 Mean Corpuscular Hemoglobin 29.6 29.3 Mean Corpuscular Hemoglobin 33.5 33.4 Concent Red Cell Distribution Width 17.2 16.9 Platelet Count 320 305 Mean Platelet Volume 7.7 7.6 Neutrophils (%) (Auto) 72.2 70.9 Lymphocytes (%) (Auto) 20.0 17.6 Monocytes (%) (Auto) 6.6 10.3 Eosinophils (%) (Auto) 0.3 0.4 Basophils (%) (Auto) 0.9 0.8 Neutrophils # (Auto) 4.7 6.9 Lymphocytes # (Auto) 1.3 1.7 Monocytes # (Auto) 0.4 1.0 Eosinophils # (Auto) 0.0 0.0 Basophils # (Auto) 0.1 0.1 CBC Comment DIFF FINAL DIFF FINAL Differential Comment Sodium Level 137 141 Potassium Level 4.0 4.2 Chloride Level 102 105 Carbon Dioxide Level 22.1 23.5 Anion Gap 13 13 Blood Urea Nitrogen 30 30 Creatinine 1.19 1.39 Estimat Glomerular Filtration 54 45 Rate Random Glucose 174 107 Calcium Level 9.0 8.9 Phosphorus Level 3.6 Magnesium Level 2.4 Total Bilirubin 0.7 Aspartate Amino Transf 21 (AST/SGOT) Alanine Aminotransferase 18 (ALT/SGPT) Alkaline Phosphatase 70 Total Creatine Kinase 53 94 54 Troponin I 0.96 0.82 0.87 Total Protein 7.1 Albumin 3.2 Triglycerides Level 89 Cholesterol Level 107 LDL Cholesterol 45 HDL Cholesterol 44.6 Cholesterol/HDL Ratio 2.39 (Slick Crespo) Result Diagram: 10/26/1621410/26/16214 Assessment and Plan Problem List: (1) Elevated troponin level (2) HTN (hypertension) (3) Atrial flutter (4) Acute CVA (cerebrovascular accident) Assessment and Plan Troponin is chronically elevated on her and she has know ischemic cardiomyopathy s/p ICD She did undergo ablation. With her stroke it is likely cardioembolic in source and this begs the question was Eliquis not effective or was she not compliant. Then, should we switch to Coumadin or another novel agent. Blood pressure is well controlled (Slick Crespo) Assessment and Plan agree with above troponin was 0.8 - 0.9 last admission. likely chronically elevated in setting of cardiomyopathy and reduced GFR. AICD in place. known CAD managed medically. recent aflutter ablation 10/15/16 CVA s/p embolectomy. probable cardioembolic source. 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 The presence or absence of PFO or LA appendage clot would not likely twisting frame changer decisions. Unclear why she developed clot on Eliquis. Unclear if fully compliant with Eliquis or not as effective with her. May need discussion with hospitalist and neuro for which anticoagulant choice would be best for her. Initiate anticoagulant when safe to do so from neuro perspective, ie hemorrhagic conversion. (Tip Mendoza MD) Slick Crespo Oct 26, 2016 08:23 Tip Mendoza MD Oct 26, 2016 08:30
--- NOTE | 2016-10-26 08:24 | HHI.CCPN ---
Subjective Remarks/Hospital Course The patient is a 70-year-old female with multiple medical co-morbidities which include hypertension, coronary artery disease, cardiomyopathy with an EF of 20- 25% from the echo dated November 2015, atrial flutter, hyperlipidemia and diabetes mellitus. The patient presented to [facility] ED with altered mental status and was unable to move her right side or speak. Her friend called 911 and she was brought in by EMS as a Stroke Alert. She was last seen normal at 6:45 this morning. She was found to have right-sided weakness and a fixed gaze to the left. Her initial CT scan of the brain was negative for acute disease. The patient had a CTA of the head which showed embolus to the right ICA. She was taken to the interventional radiology suite where she underwent angiogram and was found to have a large clot at the ICA, M1 segment, status post embolectomy with evangelical of antegrade flow. During the procedure she was given a heparin bolus. The patient had a blood pressure of 110/72 on arrival. She takes Eliquis 5 mg b.i.d. at home. The patient was seen by Dr. Juan and plan to repeat CT scan of the brain in 24 hours. Most of the history was taken from reviewing the medical records as the patient is nonverbal. 10/26 No acute events overnight. Patient is more awake today. For repeat CT brain. Objective Vital Signs Date Time Temp Pulse Resp B/P Pulse Ox O2 Delivery O2 Flow Rate FiO2 10/26/16 07:52 95 Partial Rebreather 15.00 10/26/16 06:00 79 10/26/16 04:00 98.4 31 107/66 Intake and Output 10/25/16 10/25/16 10/26/16 08:00 16:00 00:00 Intake Total 415 ml Output Total 550 ml Balance -135 ml Result Diagram: 10/26/16 0215 10/26/16 0215 Other Results Laboratory Tests Test 10/25/16 10/25/16 10/25/16 10/25/16 11:25 12:33 12:41 15:30 White Blood Count 5.7 TH/MM3 Red Blood Count 4.27 MIL/MM3 Hemoglobin 12.3 GM/DL Bedside Hemoglobin 13.3 G/DL Hematocrit 37.9 % Bedside Hematocrit 39.0 % Mean Corpuscular Volume 88.8 FL Mean Corpuscular Hemoglobin 28.9 PG Mean Corpuscular Hemoglobin 32.5 % Concent Red Cell Distribution Width 17.2 % Platelet Count 274 TH/MM3 Mean Platelet Volume 7.7 FL Neutrophils (%) (Auto) 61.6 % Lymphocytes (%) (Auto) 27.4 % Monocytes (%) (Auto) 8.9 % Eosinophils (%) (Auto) 0.9 % Basophils (%) (Auto) 1.2 % Neutrophils # (Auto) 3.5 TH/MM3 Lymphocytes # (Auto) 1.6 TH/MM3 Monocytes # (Auto) 0.5 TH/MM3 Eosinophils # (Auto) 0.1 TH/MM3 Basophils # (Auto) 0.1 TH/MM3 CBC Comment DIFF FINAL Differential Comment Prothrombin Time 14.8 SEC Prothromb Time International 1.3 RATIO Ratio Activated Partial 28.5 SEC Thromboplast Time Fibrinogen 377 mg/dL Bedside Sodium 137 MMOL/L Bedside Potassium 4.0 MMOL/L Bedside Chloride 97 MMOL/L Bedside Blood Urea Nitrogen 32 MG/DL Bedside Creatinine 1.5 MG/DL Bedside Glucose 273 MG/DL Total Creatine Kinase 54 U/L Troponin I 0.88 NG/ML Human Chorionic Gonadotropin, 4 MIU/ML Quant Blood Type AB POSITIVE Antibody Screen NEGATIVE Urine Color YELLOW Urine Turbidity CLEAR Urine pH 6.0 Urine Specific [place] 1.050 Urine Protein TRACE mg/dL Urine Glucose (UA) NEG mg/dL Urine Ketones NEG mg/dL Urine Occult Blood NEG Urine Nitrite NEG Urine Bilirubin NEG Urine Urobilinogen LESS THAN 2.0 MG/DL Urine Leukocyte Esterase NEG Urine RBC 1 /hpf Urine WBC 1 /hpf Urine Squamous Epithelial <1 /hpf Cells Urine Hyaline Casts 4 /lpf Urine Mucus FEW /lpf Urine Opiates Screen NEG Urine Barbiturates Screen NEG Urine Amphetamines Screen NEG Urine Benzodiazepines Screen POS Urine Cocaine Screen NEG Urine Cannabinoids Screen NEG Nasal Screen MRSA (PCR) NEGATIVE Test 10/25/16 10/25/16 10/26/16 15:34 20:19 02:15 White Blood Count 6.5 TH/MM3 9.8 TH/MM3 Red Blood Count 4.20 MIL/MM3 4.13 MIL/MM3 Hemoglobin 12.4 GM/DL 12.1 GM/DL Hematocrit 37.1 % 36.2 % Mean Corpuscular Volume 88.2 FL 87.6 FL Mean Corpuscular Hemoglobin 29.6 PG 29.3 PG Mean Corpuscular Hemoglobin 33.5 % 33.4 % Concent Red Cell Distribution Width 17.2 % 16.9 % Platelet Count 320 TH/MM3 305 TH/MM3 Mean Platelet Volume 7.7 FL 7.6 FL Neutrophils (%) (Auto) 72.2 % 70.9 % Lymphocytes (%) (Auto) 20.0 % 17.6 % Monocytes (%) (Auto) 6.6 % 10.3 % Eosinophils (%) (Auto) 0.3 % 0.4 % Basophils (%) (Auto) 0.9 % 0.8 % Neutrophils # (Auto) 4.7 TH/MM3 6.9 TH/MM3 Lymphocytes # (Auto) 1.3 TH/MM3 1.7 TH/MM3 Monocytes # (Auto) 0.4 TH/MM3 1.0 TH/MM3 Eosinophils # (Auto) 0.0 TH/MM3 0.0 TH/MM3 Basophils # (Auto) 0.1 TH/MM3 0.1 TH/MM3 CBC Comment DIFF FINAL DIFF FINAL Differential Comment Sodium Level 137 MEQ/L 141 MEQ/L Potassium Level 4.0 MEQ/L 4.2 MEQ/L Chloride Level 102 MEQ/L 105 MEQ/L Carbon Dioxide Level 22.1 MEQ/L 23.5 MEQ/L Anion Gap 13 MEQ/L 13 MEQ/L Blood Urea Nitrogen 30 MG/DL 30 MG/DL Creatinine 1.19 MG/DL 1.39 MG/DL Estimat Glomerular Filtration 54 ML/MIN 45 ML/MIN Rate Random Glucose 174 MG/DL 107 MG/DL Calcium Level 9.0 MG/DL 8.9 MG/DL Phosphorus Level 3.6 MG/DL Magnesium Level 2.4 MG/DL Total Bilirubin 0.7 MG/DL Aspartate Amino Transf 21 U/L (AST/SGOT) Alanine Aminotransferase 18 U/L (ALT/SGPT) Alkaline Phosphatase 70 U/L Total Creatine Kinase 53 U/L 94 U/L 54 U/L Troponin I 0.96 NG/ML 0.82 NG/ML 0.87 NG/ML Total Protein 7.1 GM/DL Albumin 3.2 GM/DL Triglycerides Level 89 MG/DL Cholesterol Level 107 MG/DL LDL Cholesterol 45 MG/DL HDL Cholesterol 44.6 MG/DL Cholesterol/HDL Ratio 2.39 RATIO Imaging Last Impressions Neck CTA 10/25/16 1125 Signed Impressions: Service Date/Time: Tuesday, October 25, 2016 11:46 - CONCLUSION: Bovine arch. Negative exam Mello Cameron MD Head CTA 10/25/16 1125 Signed Impressions: Service Date/Time: Tuesday, October 25, 2016 11:37 - CONCLUSION: 1. Embolus to the ICA terminus/left M1 segment. 2. Results called to Dr. Arvizu at the time of this dictation Trae Lima MD Head CT 10/25/16 0000 Signed Impressions: Service Date/Time: Tuesday, October 25, 2016 11:33 - CONCLUSION: 1. No acute intracranial abnormality identified. Wade Fam MD Chest X-Ray 10/25/16 0000 Signed Impressions: Service Date/Time: Tuesday, October 25, 2016 14:19 - CONCLUSION: Mild increase in interstitial edema. Herve Fam MD FACR Cerebral Arteriogram 10/25/16 0000 Signed Impressions: Service Date/Time: Tuesday, October 25, 2016 12:40 - CONCLUSION: 1. Successful left ICA terminus/M1 embolectomy as above. 2. This was a large thrombus. 2 passes were necessary to completely remove the clot burden. Trae Lima MD Objective Remarks GENERAL: Patient is lying in bed in NAD SKIN: Warm and dry. HEAD: Normocephalic. EYES: No scleral icterus. No injection or drainage. NECK: Supple, trachea midline. No JVD or lymphadenopathy. CARDIOVASCULAR: Regular rate and rhythm without murmurs, gallops, or rubs. RESPIRATORY: Breath sounds equal bilaterally. No accessory muscle use. GASTROINTESTINAL: Abdomen soft, non-tender, nondistended. MUSCULOSKELETAL: No cyanosis, or edema. Neuro: Awake, A/P Assessment and Plan 1. Acute left-sided CVA likely cardioembolic in nature 2. Altered mental status. 3. Respiratory insufficiency. 4. Mildly elevated troponin. 5. Acute kidney injury. 6. Hypertension. 7. Coronary artery disease. 8. Cardiomyopathy with EF of 20-25%. 9. Diabetes mellitus. 10.Hyperlipidemia. PLAN Neuro: Monitor neuro status closely and avoid any sedatives. Neuro is following - Dr. Juan s/p angiogram with embolectomy of a large clot in the ICA left M1 segment with evangelical of antegrade flow. For repeat CT brain today, keep SBP < 160 Will resume AC once cleared by neuro. Pulm: Continue with oxygen and maintain sats above 92%. Bronchodilators and aspiration precautions. CV: Monitor HR and BP and maintain MAP> 65 mmHg. Keep SBP < 160, echo showed EF= 20-25%. Cards- Dr. Olson : Monitor renal function, I's and O's, and avoid nephrotoxins. GI: on Protonix 40 mg IV daily. Clear liquid diet ID: Monitor for signs of infections( fever and WBC) culture if spikes a fever Heme: Monitor CBC and coags. Endo: SSI with Accu-Chek q.6h. for glycemic control. GI prophylaxis with Protonix 40 mg daily, and DVT prophylaxis with SCDs. Level 3 Meri Prado MD Oct 26, 2016 08:23
[2016-10-26] MEDS ORDERED: FUROSEMIDE 20 MG/2 ML VIAL IV PUSH ONE (08:45)
--- NOTE | 2016-10-26 09:09 | HHI.PR ---
Review/Management Daily Summary 10/26 follows commands, denies waters, counts fingers brandan left hemiparesis about -10/[address] brain at noon and if stable resume Eliquis discussed with RN Subjective Subjective Comments No acute events reported No headache No chest pain No dyspnea Active Medications Current Medications Medications (Trade) Dose Ordered Sig/Gisela Route Start Time Stop Time Status Last Admin Miscellaneous Information 1 [id number] XX 10/25/16 14:15 10/25/16 17:39 (Chlorhexidine 2% Cloth) 3 pack Taper DAILY@04 TOP 10/26/16 04:00 10/22/17 03:59 10/26/16 04:00 (Chlorhexidine 2% Cloth) 3 pack UNSCH PRN TOP 10/25/16 14:15 (D50w (Vial) Inj) 25 ml UNSCH PRN IV PUSH 10/25/16 14:30 (Glucagon Inj) 1 mg UNSCH PRN OTHER 10/25/16 14:30 (NovoLIN R SUPPLEMENTAL SCALE) 1 Q6H SQ 10/25/16 15:00 Allergies Allergies Coded Allergies Aspirin (Verified Allergy, Mild, NAUSEA/VOMITING, 03/05/16) Exam I&O / VS 10/25/16 10/25/16 10/26/16 15:00 23:00 07:00 Intake Total 415 ml 230 ml Output Total 550 ml 200 ml Balance -135 ml 30 ml Intake Oral 240 ml 230 ml IV Total 175 ml Output Urine Total 550 ml 200 ml # Bowel Movements 0 Vital Signs Date Time Temp Pulse Resp B/P Pulse Ox O2 Delivery O2 Flow Rate FiO2 10/26/16 07:52 95 Partial Rebreather 15.00 10/26/16 06:00 79 10/26/16 04:00 98.4 79 31 107/66 91 10/26/16 04:00 79 10/26/16 02:00 79 10/26/16 00:00 79 10/26/16 00:00 97.5 79 32 115/73 98 10/25/16 22:00 79 31 103/68 100 10/25/16 22:00 79 10/25/16 21:21 99 Partial Rebreather 15.00 10/25/16 21:00 79 33 107/78 99 10/25/16 20:00 79 10/25/16 20:00 97.6 79 27 117/75 96 10/25/16 19:00 79 28 114/74 99 10/25/16 18:00 97.4 79 31 111/79 99 10/25/16 18:00 79 10/25/16 17:00 97.4 79 29 117/72 96 10/25/16 16:30 97.5 79 26 111/77 100 10/25/16 16:00 80 10/25/16 16:00 97.6 80 27 110/72 100 10/25/16 15:30 97.6 80 29 107/67 100 10/25/16 15:00 97.4 79 28 110/77 97 10/25/16 14:45 97.5 79 30 108/76 99 10/25/16 14:30 97.2 79 29 115/70 97 10/25/16 14:15 97.3 79 26 103/71 95 10/25/16 12:02 95 Nasal Cannula 2 10/25/16 12:02 95 Nasal Cannula 2 10/25/16 11:51 70 115/66 10/25/16 11:41 80 118/66 10/25/16 11:31 70 111/76 10/25/16 11:27 98.8 80 110/72 95 Nasal Cannula 3 10/25/16 11:18 97 Nasal Cannula 2.00 10/25/16 11:18 97 2.00 Objective Radiology Results Last 48 hours Impressions Neck CTA 10/25/16 1125 Signed Impressions: Service Date/Time: Tuesday, October 25, 2016 11:46 - CONCLUSION: Bovine arch. Negative exam Mello Cameron MD Head CTA 10/25/16 1125 Signed Impressions: Service Date/Time: Tuesday, October 25, 2016 11:37 - CONCLUSION: 1. Embolus to the ICA terminus/left M1 segment. 2. Results called to Dr. Arvizu at the time of this dictation Trae Lima MD Head CT 10/25/16 0000 Signed Impressions: Service Date/Time: Tuesday, October 25, 2016 11:33 - CONCLUSION: 1. No acute intracranial abnormality identified. Wade Fam MD Chest X-Ray 10/25/16 0000 Signed Impressions: Service Date/Time: Tuesday, October 25, 2016 14:19 - CONCLUSION: Mild increase in interstitial edema. Herve Fam MD FACR Cerebral Arteriogram 10/25/16 0000 Signed Impressions: Service Date/Time: Tuesday, October 25, 2016 12:40 - CONCLUSION: 1. Successful left ICA terminus/M1 embolectomy as above. 2. This was a large thrombus. 2 passes were necessary to completely remove the clot burden. Trae Lima MD Micro and Labs Laboratory Tests Test 10/25/16 10/25/16 10/25/16 10/25/16 11:25 12:33 12:41 15:30 White Blood Count 5.7 Red Blood Count 4.27 Hemoglobin 12.3 Bedside Hemoglobin 13.3 Hematocrit 37.9 Bedside Hematocrit 39.0 Mean Corpuscular Volume 88.8 Mean Corpuscular Hemoglobin 28.9 Mean Corpuscular Hemoglobin 32.5 Concent Red Cell Distribution Width 17.2 Platelet Count 274 Mean Platelet Volume 7.7 Neutrophils (%) (Auto) 61.6 Lymphocytes (%) (Auto) 27.4 Monocytes (%) (Auto) 8.9 Eosinophils (%) (Auto) 0.9 Basophils (%) (Auto) 1.2 Neutrophils # (Auto) 3.5 Lymphocytes # (Auto) 1.6 Monocytes # (Auto) 0.5 Eosinophils # (Auto) 0.1 Basophils # (Auto) 0.1 CBC Comment DIFF FINAL Differential Comment Prothrombin Time 14.8 Prothromb Time International 1.3 Ratio Activated Partial 28.5 Thromboplast Time Fibrinogen 377 Bedside Sodium 137 Bedside Potassium 4.0 Bedside Chloride 97 Bedside Blood Urea Nitrogen 32 Bedside Creatinine 1.5 Bedside Glucose 273 Total Creatine Kinase 54 Troponin I 0.88 Human Chorionic Gonadotropin, 4 Quant Blood Type AB POSITIVE Antibody Screen NEGATIVE Urine Color YELLOW Urine Turbidity CLEAR Urine pH 6.0 Urine Specific [place] 1.050 Urine Protein TRACE Urine Glucose (UA) NEG Urine Ketones NEG Urine Occult Blood NEG Urine Nitrite NEG Urine Bilirubin NEG Urine Urobilinogen LESS THAN 2.0 Urine Leukocyte Esterase NEG Urine RBC 1 Urine WBC 1 Urine Squamous Epithelial <1 Cells Urine Hyaline Casts 4 Urine Mucus FEW Urine Opiates Screen NEG Urine Barbiturates Screen NEG Urine Amphetamines Screen NEG Urine Benzodiazepines Screen POS Urine Cocaine Screen NEG Urine Cannabinoids Screen NEG Nasal Screen MRSA (PCR) NEGATIVE Test 10/25/16 10/25/16 10/26/16 15:34 20:19 02:15 White Blood Count 6.5 9.8 Red Blood Count 4.20 4.13 Hemoglobin 12.4 12.1 Hematocrit 37.1 36.2 Mean Corpuscular Volume 88.2 87.6 Mean Corpuscular Hemoglobin 29.6 29.3 Mean Corpuscular Hemoglobin 33.5 33.4 Concent Red Cell Distribution Width 17.2 16.9 Platelet Count 320 305 Mean Platelet Volume 7.7 7.6 Neutrophils (%) (Auto) 72.2 70.9 Lymphocytes (%) (Auto) 20.0 17.6 Monocytes (%) (Auto) 6.6 10.3 Eosinophils (%) (Auto) 0.3 0.4 Basophils (%) (Auto) 0.9 0.8 Neutrophils # (Auto) 4.7 6.9 Lymphocytes # (Auto) 1.3 1.7 Monocytes # (Auto) 0.4 1.0 Eosinophils # (Auto) 0.0 0.0 Basophils # (Auto) 0.1 0.1 CBC Comment DIFF FINAL DIFF FINAL Differential Comment Sodium Level 137 141 Potassium Level 4.0 4.2 Chloride Level 102 105 Carbon Dioxide Level 22.1 23.5 Anion Gap 13 13 Blood Urea Nitrogen 30 30 Creatinine 1.19 1.39 Estimat Glomerular Filtration 54 45 Rate Random Glucose 174 107 Calcium Level 9.0 8.9 Phosphorus Level 3.6 Magnesium Level 2.4 Total Bilirubin 0.7 Aspartate Amino Transf 21 (AST/SGOT) Alanine Aminotransferase 18 (ALT/SGPT) Alkaline Phosphatase 70 Total Creatine Kinase 53 94 54 Troponin I 0.96 0.82 0.87 Total Protein 7.1 Albumin 3.2 Triglycerides Level 89 Cholesterol Level 107 LDL Cholesterol 45 HDL Cholesterol 44.6 Cholesterol/HDL Ratio 2.39 Nida Juan MD Oct 26, 2016 09:09
--- NOTE | 2016-10-26 10:46 | EKG ---
Date Performed: 10/25/2016 Time Performed: 20:13:13 PTAGE: 70 years EKG: ELECTRONIC VENTRICULAR PACEMAKER ABNORMAL RHYTHM ECG Compared to prior tracing no significa nt change PREVIOUS TRACING : 10/16/2016 05.12 DOCTOR: Melody Smith Interpretating Date/Time 10/26/2016 10:40:16
--- NOTE | 2016-10-26 17:24 | RADRPT ---
EXAM DATE/TIME: 10/26/2016 13:02 [place] COMPARISON: CTA BRAIN W 3D RECON, October 25, 2016, 11:37. ANGIOGRAM, CEREBRAL WO ARCH, October 25, 2016, 0:00. CT BRAIN W/O CONTRAST, October 25, 2016, 11:33. INDICATIONS : Follow up stroke. RADIATION DOSE: 38.02 CTDIvol (mGy) MEDICAL HISTORY : Stroke. Hypertension. Cardiovascular diseaseDiabetes SURGICAL HISTORY : None. ENCOUNTER: Subsequent ACUITY: 2 days PAIN SCALE: Non-responsive LOCATION: cranial TECHNIQUE: Multiple contiguous axial images were obtained of the head. Using automated exposure control and adj ustment of the mA and/or kV according to patient size, radiation dose was kept as low as reasonably a chievable to obtain optimal diagnostic quality images. FINDINGS: Noncontrast axial head CT demonstrates the ventricles to be normal in size and configuration with a n ormal sulcal pattern. No acute intracranial hemorrhage, acute cortical infarction, mass or midline sh ift is seen. There is slight decreased density in the left vasoganglia measuring 2 cm in diameter whi ch may reflect an area of edema or infarction. Posterior fossa structures are unremarkable. Bone windows are unremarkable the septum dystrophic calcification in the left cerebral hemisphere luther suring 10 mm x 4 mm. CONCLUSION: 1. No evidence of acute cortical infarction. 2. Subtle hypodensity in left basal ganglia may reflect edema or infarct. Akshat Kat MD on October 26, 2016 at 17:20 Board Certified Radiologist. This report was verified electronically.
[2016-10-26] MEDS ORDERED: ONDANSETRON HCL 4 MG/2 ML VIAL IV PUSH PRN (20:45)
[2016-10-27] VITALS (11 sets, daily range): BP systolic 103–110; BP diastolic 69–75; PULSE 79–80; RESP 20–28; TEMP 97.5–98.6; O2SAT 91–100
[2016-10-27] MEDS: INSULIN NovoLIN REGULAR SUPPLEMENTAL SCALE SQ SCH ×4 (03:00→20:30)
[2016-10-27] MEDS: RESP: ALBUTEROL 2.5 MG/IPRATROPIUM 0.5 MG NEB (SCH) INH ×4 (03:47→21:11)
[2016-10-27] MEDS: CHLORHEXIDINE GLUCONATE 2 % 1 PACK (2 CLOTHS) TOP SCH (04:00)
[2016-10-27 06:17] LABS: AUTOMATED NEUTROPHIL # 6.9 TH/MM3 (1.8-7.7); BASOPHIL # 0.1 TH/MM3 (0-0.2); EOSINOPHIL # 0.1 TH/MM3 (0-0.4); EOSINOPHIL % 0.7 % (0.0-4.0); HEMATOCRIT 36.2 % (35.0-46.0); HEMO FLAGS DIFF FINAL; LYMPH % 19.3 % (9.0-44.0); MEAN CELL VOLUME 87.3 FL (80.0-100.0); MEAN CORPUSCULAR HEMOGLOBIN 29.1 PG (27.0-34.0); MEAN CORPUSCULAR HGB CONC 33.3 % (32.0-36.0); MONO % 11.7 % (0.0-8.0); NEUT % 67.3 % (16.0-70.0); PLATELET COUNT 320 TH/MM3 (150-450); RED BLOOD COUNT 4.15 MIL/MM3 (4.00-5.30); RED CELL DISTRIBUTION WIDTH 17.3 % (11.6-17.2); WHITE BLOOD COUNT 10.3 TH/MM3 (4.0-11.0)
[2016-10-27 06:43] LABS: BICARBONATE 25.2 MEQ/L (21.0-32.0); MAGNESIUM 2.8 MG/DL (1.5-2.5); POTASSIUM 4.2 MEQ/L (3.5-5.1)
--- NOTE | 2016-10-27 07:45 | PD.CARD.PN ---
Subjective Subjective Remarks no events overnight Objective Medications Active Medications Furosemide (Lasix Inj) 20 mg ONCE ONCE IV PUSH Last administered on 10/26/16 09 :16; Admin Dose 20 MG; Start 10/26/16 at 08:45; Stop 10/26/16 at 08:46; Status DC Ondansetron HCl (Zofran Inj) 4 mg Q6H PRN IV PUSH Last administered on 21:02; Admin Dose 4 MG; Start 10/26/16 at 20:45 Vital Signs / I&O Vital Signs Date Time Temp Pulse Resp B/P Pulse Ox O2 Delivery O2 Flow Rate FiO2 10/27/16 06:00 80 10/27/16 04:00 98.3 80 24 103/74 95 10/27/16 04:00 80 10/27/16 02:00 80 10/27/16 02:00 80 10/27/16 00:00 98.0 80 25 106/70 91 10/27/16 00:00 80 10/26/16 22:13 93 Nasal Cannula 5.00 10/26/16 22:00 80 10/26/16 20:00 80 10/26/16 20:00 98.3 80 29 117/77 93 10/26/16 16:00 98.4 80 24 113/84 92 10/26/16 12:00 98.4 79 20 116/73 98 10/26/16 08:00 98.5 80 28 117/76 93 10/26/16 07:52 95 Partial Rebreather 15.00 I/O 10/26/16 10/26/16 10/26/16 10/27/16 10/27/16 10/27/16 07:00 15:00 23:00 07:00 15:00 23:00 Intake Total 230 ml 400 ml 510 ml 340 ml Output Total 200 ml 250 ml 150 ml 100 ml Balance 30 ml 150 ml 360 ml 240 ml Intake Oral 230 ml 400 ml 500 ml 340 ml IV Total 10 ml 0 ml Output Urine Total 200 ml 250 ml 150 ml 100 ml # Bowel Movements 0 0 Physical Exam CARDIOVASCULAR: Regular rate and rhythm without murmurs, gallops, or rubs. RESPIRATORY: Breath sounds equal bilaterally. No accessory muscle use. GASTROINTESTINAL: Abdomen soft, non-tender, nondistended. MUSCULOSKELETAL: No cyanosis, or edema. Laboratory Laboratory Tests Test 10/27/16 06:07 White Blood Count 10.3 TH/MM3 Red Blood Count 4.15 MIL/MM3 Hemoglobin 12.1 GM/DL Hematocrit 36.2 % Mean Corpuscular Volume 87.3 FL Mean Corpuscular Hemoglobin 29.1 PG Mean Corpuscular Hemoglobin 33.3 % Concent Red Cell Distribution Width 17.3 % Platelet Count 320 TH/MM3 Mean Platelet Volume 7.3 FL Neutrophils (%) (Auto) 67.3 % Lymphocytes (%) (Auto) 19.3 % Monocytes (%) (Auto) 11.7 % Eosinophils (%) (Auto) 0.7 % Basophils (%) (Auto) 1.0 % Neutrophils # (Auto) 6.9 TH/MM3 Lymphocytes # (Auto) 2.0 TH/MM3 Monocytes # (Auto) 1.2 TH/MM3 Eosinophils # (Auto) 0.1 TH/MM3 Basophils # (Auto) 0.1 TH/MM3 CBC Comment DIFF FINAL Differential Comment Sodium Level 139 MEQ/L Potassium Level 4.2 MEQ/L Chloride Level 102 MEQ/L Carbon Dioxide Level 25.2 MEQ/L Anion Gap 12 MEQ/L Blood Urea Nitrogen 37 MG/DL Creatinine 1.66 MG/DL Estimat Glomerular Filtration 37 ML/MIN Rate Random Glucose 112 MG/DL Calcium Level 9.1 MG/DL Phosphorus Level 4.0 MG/DL Magnesium Level 2.8 MG/DL Imaging Last Impressions Head CT 10/26/16 0000 Signed Impressions: Service Date/Time: Wednesday, October 26, 2016 13:02 - CONCLUSION: 1. No evidence of acute cortical infarction. 2. Subtle hypodensity in left basal ganglia may reflect edema or infarct. Akshat Kat MD Neck CTA 10/25/16 1125 Signed Impressions: Service Date/Time: Tuesday, October 25, 2016 11:46 - CONCLUSION: Bovine arch. Negative exam Mello Cameron MD Head CTA 10/25/16 1125 Signed Impressions: Service Date/Time: Tuesday, October 25, 2016 11:37 - CONCLUSION: 1. Embolus to the ICA terminus/left M1 segment. 2. Results called to Dr. Arvizu at the time of this dictation Trae Lima MD Chest X-Ray 10/25/16 0000 Signed Impressions: Service Date/Time: Tuesday, October 25, 2016 14:19 - CONCLUSION: Mild increase in interstitial edema. Herve Fam MD FACR Cerebral Arteriogram 10/25/16 0000 Signed Impressions: Service Date/Time: Tuesday, October 25, 2016 12:40 - CONCLUSION: 1. Successful left ICA terminus/M1 embolectomy as above. 2. This was a large thrombus. 2 passes were necessary to completely remove the clot burden. Trae Lima MD Assessment and Plan Problem List: (1) Elevated troponin level (2) HTN (hypertension) (3) Atrial flutter (4) Acute CVA (cerebrovascular accident) Assessment and Plan mild troponin elevation - chronically elevated in setting of cardiomyopathy and reduced GFR. AICD in place. known CAD managed medically. CVA s/p embolectomy. resume anticoagulation when clear by neuro will sign off call with further questions FU with Dr. Olson. Tip Mendoza MD Oct 27, 2016 07:45
--- NOTE | 2016-10-27 12:45 | PD.TRANSFR ---
Transfer Summary Admission Date Oct 25, 2016 at 13:01 Admitting Diagnosis CVA Diagnoses: Transfer Summary/Subjective The patient is a 70-year-old female with multiple medical co-morbidities which include hypertension, coronary artery disease, cardiomyopathy with an EF of 20- 25% from the echo dated November 2015, atrial flutter, hyperlipidemia and diabetes mellitus. The patient presented to [facility] ED with altered mental status and was unable to move her right side or speak. Her friend called 911 and she was brought in by EMS as a Stroke Alert. She was last seen normal at 6:45 this morning. She was found to have right-sided weakness and a fixed gaze to the left. Her initial CT scan of the brain was negative for acute disease. The patient had a CTA of the head which showed embolus to the right ICA. She was taken to the interventional radiology suite where she underwent angiogram and was found to have a large clot at the ICA, M1 segment, status post embolectomy with sikh of antegrade flow. During the procedure she was given a heparin bolus. The patient had a blood pressure of 110/72 on arrival. She takes Eliquis 5 mg b.i.d. at home. The patient was seen by Dr. Juan and plan to repeat CT scan of the brain in 24 hours. Most of the history was taken from reviewing the medical records as the patient is nonverbal. 10/26 No acute events overnight. Patient is more awake today. For repeat CT brain. 10/27: Resting in bed comfortably. Moves all 4 extremities though feels some weakness on the right upper extremity and numbness in the right lower extremity. Denied any headache. Head CT done yesterday was negative for any bleeding. Neurology okayed resuming anticoagulation with Eliquis. Objective Vital Signs Date Time Temp Pulse Resp B/P Pulse Ox O2 Delivery O2 Flow Rate FiO2 10/27/16 08:45 94 Nasal Cannula 4.00 10/27/16 08:00 97.5 80 20 108/72 Intake and Output 10/26/16 10/26/16 10/27/16 08:00 16:00 00:00 Intake Total 230 ml 400 ml 510 ml Output Total 200 ml 250 ml 150 ml Balance 30 ml 150 ml 360 ml Result Diagram: 10/27/16 0607 10/27/16 0607 Imaging Last Impressions Neck CTA 10/25/16 1125 Signed Impressions: Service Date/Time: Tuesday, October 25, 2016 11:46 - CONCLUSION: Bovine arch. Negative exam Mello Cameron MD Head CTA 10/25/16 1125 Signed Impressions: Service Date/Time: Tuesday, October 25, 2016 11:37 - CONCLUSION: 1. Embolus to the ICA terminus/left M1 segment. 2. Results called to Dr. Arvizu at the time of this dictation Trae Lima MD Head CT 10/25/16 0000 Signed Impressions: Service Date/Time: Tuesday, October 25, 2016 11:33 - CONCLUSION: 1. No acute intracranial abnormality identified. Wade Fam MD Chest X-Ray 10/25/16 0000 Signed Impressions: Service Date/Time: Tuesday, October 25, 2016 14:19 - CONCLUSION: Mild increase in interstitial edema. Herve Fam MD FACR Cerebral Arteriogram 10/25/16 0000 Signed Impressions: Service Date/Time: Tuesday, October 25, 2016 12:40 - CONCLUSION: 1. Successful left ICA terminus/M1 embolectomy as above. 2. This was a large thrombus. 2 passes were necessary to completely remove the clot burden. Trae Lima MD Objective Remarks GENERAL: Patient is lying in bed in NAD SKIN: Warm and dry. HEAD: Normocephalic. EYES: No scleral icterus. No injection or drainage. NECK: Supple, trachea midline. No JVD or lymphadenopathy. CARDIOVASCULAR: Regular rate and rhythm without murmurs, gallops, or rubs. RESPIRATORY: Breath sounds equal bilaterally. No accessory muscle use. GASTROINTESTINAL: Abdomen soft, non-tender, nondistended. MUSCULOSKELETAL: No cyanosis, or edema. Neuro: Awake, R5 by fine both upper extremities. Power 5 x 5 in both lower extremities as well. Subjective numbness in left lower extremity. A/P Assessment and Plan 1. Acute left-sided CVA likely cardioembolic in nature 2. Altered mental status. 3. Respiratory insufficiency. 4. Mildly elevated troponin. 5. Acute kidney injury. 6. Hypertension. 7. Coronary artery disease. 8. Cardiomyopathy with EF of 20-25%. 9. Diabetes mellitus. 10.Hyperlipidemia. PLAN Neuro: Monitor neuro status closely and avoid any sedatives. Neuro is following - Dr. Juan s/p angiogram with embolectomy of a large clot in the ICA left M1 segment with sikh of antegrade flow. CT brain / negative for bleed, keep SBP < 160 Resume anticoagulation with Eliquis as head CT negative for bleed or Dr. Juan. Pulm: Continue with oxygen and maintain sats above 92%. Bronchodilators and aspiration precautions. CV: Monitor HR and BP and maintain MAP> 65 mmHg. Keep SBP < 160, echo showed EF= 20-25%. Cards- Dr. Olson : Monitor renal function, I's and O's, and avoid nephrotoxins. GI: on Protonix 40 mg IV daily. Clear liquid diet ID: Monitor for signs of infections( fever and WBC) culture if spikes a fever Heme: Monitor CBC and coags. Endo: SSI with Accu-Chek q.6h. for glycemic control. GI prophylaxis with Protonix 40 mg daily, and DVT prophylaxis with SCDs. Critical care signing off, consult hospitalist service for further medical management. Consulted rehabilitation, speech and swallow eval. Further recommendations per neurology. Sanford Montalvo MD Oct 27, 2016 12:44
[2016-10-27] MEDS ORDERED: BUMETANIDE INJ 1 MG/4 ML VIAL IV PUSH ONE (13:00)
[2016-10-27] MEDS: APIXABAN 5 MG TABLET PO SCH ×2 (13:26→20:30)
[2016-10-27] MEDS: BUMETANIDE 1 MG TAB PO SCH (18:13)
[2016-10-28] VITALS (10 sets, daily range): BP systolic 100–114; BP diastolic 61–71; PULSE 75–90; RESP 16–24; TEMP 96.6–99.8; O2SAT 80–97
[2016-10-28] MEDS: ACETAMINOPHEN 500 MG CPLT PO PRN ×2 (03:39→21:59)
[2016-10-28] MEDS: INSULIN NovoLIN REGULAR SUPPLEMENTAL SCALE SQ SCH ×4 (03:50→21:57)
[2016-10-28] MEDS: RESP: ALBUTEROL 2.5 MG/IPRATROPIUM 0.5 MG NEB (SCH) INH ×4 (04:12→21:06)
[2016-10-28] MEDS: CHLORHEXIDINE GLUCONATE 2 % 1 PACK (2 CLOTHS) TOP SCH (04:31)
--- NOTE | 2016-10-28 08:16 | HHI.PR ---
Review/Management Daily Summary 10/26 follows commands, denies waters, counts fingers brandan left hemiparesis about 3-10/[address] brain at noon and if stable resume Eliquis discussed with RN 10/28 alert, oriented and moves right limbs more strongly 10/27 verbalizing well overall markedly improved ambulate and start d/c plans would add baby asa to eliquis if ok with other treating drs as pt developed embolic event on eliquis Subjective Subjective Comments No acute events reported No headache No chest pain No dyspnea Active Medications Current Medications Medications (Trade) Dose Ordered Sig/Gisela Route Start Time Stop Time Status Last Admin Miscellaneous Information 1 Q361D XX 10/25/16 14:15 10/25/16 17:39 (Chlorhexidine 2% Cloth) 3 pack Taper DAILY@04 TOP 10/26/16 04:00 10/22/17 03:59 10/27/16 04:00 (Chlorhexidine 2% Cloth) 3 pack UNSCH PRN TOP 10/25/16 14:15 (D50w (Vial) Inj) 25 ml UNSCH PRN IV PUSH 10/25/16 14:30 (Glucagon Inj) 1 mg UNSCH PRN OTHER 10/25/16 14:30 (NovoLIN R SUPPLEMENTAL SCALE) 1 Q6H SQ 10/25/16 15:00 10/28/16 03:50 (Zofran Inj) 4 mg Q6H PRN IV PUSH 10/26/16 20:45 10/26/16 21:02 (Eliquis) 5 mg BID PO 10/27/16 13:00 10/27/16 20:30 (Bumetanide) 1 mg BID@,18 PO 10/27/16 18:00 10/27/16 18:13 (Tylenol) 1,000 mg Q6H PRN PO 10/28/16 03:45 10/28/16 03:39 Allergies Allergies Coded Allergies Aspirin (Verified Allergy, Mild, NAUSEA/VOMITING, 03/05/16) Exam I&O / VS 10/27/16 10/27/16 10/28/16 15:00 23:00 07:00 Intake Total 700 ml 500 ml 60 ml Output Total 150 ml 375 ml Balance 550 ml 125 ml 60 ml Intake Oral 700 ml 500 ml 60 ml Output Urine Total 150 ml 375 ml # Voids 3 # Bowel Movements 0 Vital Signs Date Time Temp Pulse Resp B/P Pulse Ox O2 Delivery O2 Flow Rate FiO2 10/28/16 04:00 99.8 90 18 100/71 93 10/28/16 00:55 75 10/28/16 00:00 98.3 80 18 103/67 94 10/27/16 22:00 79 10/27/16 21:11 100 Nasal Cannula 2.50 10/27/16 20:00 79 10/27/16 20:00 98.0 79 28 104/74 100 10/27/16 16:00 98.6 79 24 104/69 95 10/27/16 12:00 97.6 80 21 110/75 92 10/27/16 08:45 94 Nasal Cannula 4.00 Nida Juan MD Oct 28, 2016 08:15
[2016-10-28] MEDS: APIXABAN 5 MG TABLET PO SCH ×2 (08:53→21:57)
[2016-10-28] MEDS: BUMETANIDE 1 MG TAB PO SCH (08:54)
--- NOTE | 2016-10-28 09:51 | HHI.PR ---
Subjective Remarks Mrs. Salinas was recently admitted from 10/12/16-10/17/16 for SOB/weakness and was found to have elevated troponin and A. flutter. She underwent A. flutter ablation/cardioversion on 10/15/16. Pt was discharged on Eliquis 5mg po BID and Plavix 75mg po daily. She presented back to the ED on 10/25/16 with altered mental status and was unable to move her right side or speak. She was found to have right-sided weakness and a fixed gaze to the left. Her initial CT scan of the brain was negative for acute disease. The patient had a CTA of the head which showed embolus to the right ICA. She was taken to the interventional radiology suite where she underwent angiogram and was found to have a large clot at the ICA, M1 segment, s/p embolectomy with religion of antegrade flow. During the procedure she was given a heparin bolus. She was admitted to the ICU with Neurology following. Pt has been improving clinically. She is able to verbalize well and the movement /strength of right UE and LE is improving. Objective Vitals Vital Signs Date Time Temp Pulse Resp B/P Pulse Ox O2 Delivery O2 Flow Rate FiO2 10/28/16 09:23 95 Nasal Cannula 2.00 10/28/16 08:00 97.9 80 16 110/71 80 10/28/16 04:00 99.8 90 18 100/71 93 10/28/16 00:55 75 10/28/16 00:00 98.3 80 18 103/67 94 10/27/16 22:00 79 10/27/16 21:11 100 Nasal Cannula 2.50 10/27/16 20:00 79 10/27/16 20:00 98.0 79 28 104/74 100 10/27/16 16:00 98.6 79 24 104/69 95 10/27/16 12:00 97.6 80 21 110/75 92 10/27/16 10/27/16 10/28/16 15:00 23:00 07:00 Intake Total 700 ml 500 ml 60 ml Output Total 150 ml 375 ml Balance 550 ml 125 ml 60 ml Intake Oral 700 ml 500 ml 60 ml Output Urine Total 150 ml 375 ml # Voids 3 # Bowel Movements 0 Result Diagram: 10/27/16 0607 10/27/16 0607 Other Results Laboratory Tests Test 10/27/16 06:07 White Blood Count 10.3 TH/MM3 Red Blood Count 4.15 MIL/MM3 Hemoglobin 12.1 GM/DL Hematocrit 36.2 % Mean Corpuscular Volume 87.3 FL Mean Corpuscular Hemoglobin 29.1 PG Mean Corpuscular Hemoglobin 33.3 % Concent Red Cell Distribution Width 17.3 % Platelet Count 320 TH/MM3 Mean Platelet Volume 7.3 FL Neutrophils (%) (Auto) 67.3 % Lymphocytes (%) (Auto) 19.3 % Monocytes (%) (Auto) 11.7 % Eosinophils (%) (Auto) 0.7 % Basophils (%) (Auto) 1.0 % Neutrophils # (Auto) 6.9 TH/MM3 Lymphocytes # (Auto) 2.0 TH/MM3 Monocytes # (Auto) 1.2 TH/MM3 Eosinophils # (Auto) 0.1 TH/MM3 Basophils # (Auto) 0.1 TH/MM3 CBC Comment DIFF FINAL Differential Comment Sodium Level 139 MEQ/L Potassium Level 4.2 MEQ/L Chloride Level 102 MEQ/L Carbon Dioxide Level 25.2 MEQ/L Anion Gap 12 MEQ/L Blood Urea Nitrogen 37 MG/DL Creatinine 1.66 MG/DL Estimat Glomerular Filtration 37 ML/MIN Rate Random Glucose 112 MG/DL Calcium Level 9.1 MG/DL Phosphorus Level 4.0 MG/DL Magnesium Level 2.8 MG/DL Imaging Last Impressions Head CT 10/26/16 0000 Signed Impressions: Service Date/Time: Wednesday, October 26, 2016 13:02 - CONCLUSION: 1. No evidence of acute cortical infarction. 2. Subtle hypodensity in left basal ganglia may reflect edema or infarct. Akshat Kat MD Neck CTA 10/25/161124 Signed Impressions: Service Date/Time: Tuesday, October 25, 2016 11:46 - CONCLUSION: Bovine arch. Negative exam Mello Cameron MD Head CTA 10/25/161124 Signed Impressions: Service Date/Time: Tuesday, October 25, 2016 11:37 - CONCLUSION: 1. Embolus to the ICA terminus/left M1 segment. 2. Results called to Dr. Arvizu at the time of this dictation Trae Lima MD Chest X-Ray 10/25/16 0000 Signed Impressions: Service Date/Time: Tuesday, October 25, 2016 14:19 - CONCLUSION: Mild increase in interstitial edema. Herve Fam MD FACR Cerebral Arteriogram 10/25/16 0000 Signed Impressions: Service Date/Time: Tuesday, October 25, 2016 12:40 - CONCLUSION: 1. Successful left ICA terminus/M1 embolectomy as above. 2. This was a large thrombus. 2 passes were necessary to completely remove the clot burden. Trae Lima MD Objective Remarks General: NAD, AAOx3 Chest: Decreased breath sounds at the bases Cardiac: Regular Abd: +BS, soft, ND/NT Ext: moves all 4 extremities, strength improving on the right side. Neuro: Speech improving. A/P Problem List: (1) Acute CVA (cerebrovascular accident) Status: Acute Plan: - Mrs. Salinas was recently admitted from 10/12/16-10/17/16 for SOB/weakness and was found to have elevated troponin and A. flutter. She underwent A. flutter ablation/ cardioversion on 10/15/16. - Pt was discharged on Eliquis 5mg po BID and Plavix 75mg po daily at that admission. - She presented back to the ED on 10/25/16 with altered mental status and was unable to move her right side or speak. She was found to have right-sided weakness and a fixed gaze to the left. - Her initial CT scan of the brain was negative for acute disease. - CTA of the head which showed embolus to the right ICA. - She was taken to the interventional radiology suite where she underwent angiogram and was found to have a large clot at the ICA, M1 segment, s/p embolectomy with religion of antegrade flow. - During the procedure she was given a heparin bolus. - She was admitted to the ICU with Neurology following. - Repeat Head CT (10/26/16) --> No evidence of acute cortical infarction. Subtle hypodensity in left basal ganglia may reflect edema or infarct. - Pt has been improving clinically. She is able to verbalize well and the movement/strength of right UE and LE is improving. - Neurology cleared the pt to resume Eliquis and has recommended ASA. Pt had been on Plavix previously. - Cont. PT/OT - DVT prophylaxis with SCDs (2) COPD (chronic obstructive pulmonary disease) Status: Chronic Plan: - Pt still requiring supplemental O2 - CXR today - Duonebs - Try to wean O2 (3) DM2 (diabetes mellitus, type 2) Status: Chronic Plan: - NovoLog SSI - Accu checks (4) HTN (hypertension) Status: Chronic Plan: - Home meds have been held. - BP has been low/normal (5) Congestive heart failure Status: Chronic Plan: - Pt with chronic systolic CHF/cardiomyopathy with EF 20-25% s/p AICD - Bumex 1mg po BID has been resumed on 10/27 - Creatinine was rising on 10/27, repeat labs today - May need to hold Bumex is Cr continues to rise. - Check CXR (6) Atrial flutter Status: Resolved Plan: - Pt with hx of atrial flutter s/p A. flutter ablation/cardioversion on 10/15/16 (7) CAD (coronary artery disease) Status: Acute (8) CKD (chronic kidney disease) stage 3, GFR 30-59 ml/min Status: Chronic Assessment and Plan Patient examined. Assessment and plan formulated with Christiana Villanueva PA-C. I agree with the above. let mca embolic cva. s/p embolectomy. discussed with dr Lima anticoagulation resumed. strength improving on right and aphasia resolved. hold diuretic and recheck cr....bhavana developing. will need snf. neurology following. Christiana Villanueva Oct 28, 2016 09:51 Julian Huff MD Oct 28, 2016 19:34 Christiana Villanueva Oct 28, 2016 09:51 Julian Huff MD Oct 28, 2016 19:34
--- NOTE | 2016-10-28 10:49 | RADRPT ---
EXAM DATE/TIME: 10/28/2016 10:26 [facility] COMPARISON: CHEST SINGLE AP, October 25, 2016, 14:19. INDICATIONS : Hypoxia and congestive heart failure. MEDICAL HISTORY : Congestive heart failure. Stroke. SURGICAL HISTORY : Cholecystectomy. Hysterectomy. Pacemaker. ENCOUNTER: Subsequent ACUITY: 4 - 6 days PAIN SCORE: 0/10 LOCATION: chest FINDINGS: There is persistent consolidation in the left mid and lower lung with complete loss of delineation le ft hemidiaphragm. There is some blunting of the costophrenic angle on the right suggesting small ple ural effusion. Some patchy areas of opacity at the right base are slightly more prominent than on pr ior exam. Cardiac pacer in place. CONCLUSION: Persistent left lower lobe consolidation. Probable small right pleural effusion and new patchy non-c onsolidative infiltrates in the lower right lung. Alberto Howard MD on October 28, 2016 at 10:46 Board Certified Radiologist. This report was verified electronically.
[2016-10-28 12:01] LABS: BICARBONATE 26.1 MEQ/L (21.0-32.0); POTASSIUM 3.7 MEQ/L (3.5-5.1)
[2016-10-29] VITALS (10 sets, daily range): BP systolic 106–122; BP diastolic 73–79; PULSE 80; RESP 16–22; TEMP 95.3–96.8; O2SAT 93–98
[2016-10-29] MEDS: INSULIN NovoLIN REGULAR SUPPLEMENTAL SCALE SQ SCH ×4 (02:43→22:16)
[2016-10-29] MEDS: CHLORHEXIDINE GLUCONATE 2 % 1 PACK (2 CLOTHS) TOP SCH (04:00)
[2016-10-29] MEDS: RESP: ALBUTEROL 2.5 MG/IPRATROPIUM 0.5 MG NEB (SCH) INH ×2 (04:07→10:56)
[2016-10-29 06:57] LABS: AUTOMATED NEUTROPHIL # 5.3 TH/MM3 (1.8-7.7); BASOPHIL # 0.1 TH/MM3 (0-0.2); BASOPHIL % 0.7 % (0.0-2.0); EOSINOPHIL # 0.2 TH/MM3 (0-0.4); EOSINOPHIL % 1.9 % (0.0-4.0); HEMATOCRIT 35.3 % (35.0-46.0); HEMO FLAGS DIFF FINAL; LYMPH % 28.6 % (9.0-44.0); LYMPHOCYTE # 2.6 TH/MM3 (1.0-4.8); MEAN CELL VOLUME 88.4 FL (80.0-100.0); MEAN CORPUSCULAR HEMOGLOBIN 29.2 PG (27.0-34.0); MEAN CORPUSCULAR HGB CONC 33.1 % (32.0-36.0); MONO % 9.9 % (0.0-8.0); NEUT % 58.9 % (16.0-70.0); PLATELET COUNT 297 TH/MM3 (150-450); RED BLOOD COUNT 3.99 MIL/MM3 (4.00-5.30); RED CELL DISTRIBUTION WIDTH 17.3 % (11.6-17.2)
[2016-10-29 07:11] LABS: BICARBONATE 25.4 MEQ/L (21.0-32.0); MAGNESIUM 2.5 MG/DL (1.5-2.5); POTASSIUM 3.7 MEQ/L (3.5-5.1)
[2016-10-29] MEDS: APIXABAN 5 MG TABLET PO SCH ×2 (08:02→22:12)
[2016-10-29] MEDS: ACETAMINOPHEN 500 MG CPLT PO PRN (08:59)
[2016-10-29] MEDS ORDERED: BUMETANIDE 1 MG TAB PO ONE (10:00)
--- NOTE | 2016-10-29 13:40 | HHI.PR ---
Subjective Remarks No new complaints. Pt sitting up in chair Feels the strength in the RUE is improving. Speech is improving. Objective Vitals Vital Signs Date Time Temp Pulse Resp B/P Pulse Ox O2 Delivery O2 Flow Rate FiO2 10/29/16 11:59 95.3 80 21 122/76 95 10/29/16 10:54 98 Nasal Cannula 2.00 10/29/16 08:00 95.9 80 18 114/75 93 10/29/16 05:32 96.8 80 16 106/73 94 10/29/16 01:55 80 10/29/16 00:00 96.5 80 20 118/79 93 10/28/16 22:59 18 10/28/16 20:00 96.6 80 20 114/69 97 10/28/16 16:00 97.1 80 18 110/70 94 10/28/16 15:04 92 Nasal Cannula 2.00 10/28/16 10/28/16 10/29/16 15:00 23:00 07:00 Intake Total 1288 ml Output Total 250 ml Balance 1288 ml -250 ml IV Total 1288 ml Output Urine Total 250 ml # Voids 1 2 Result Diagram: 10/29/16 0549 10/29/16 0549 Other Results Laboratory Tests Test 10/28/16 10/29/16 11:05 05:49 Sodium Level 137 MEQ/L 138 MEQ/L Potassium Level 3.7 MEQ/L 3.7 MEQ/L Chloride Level 101 MEQ/L 102 MEQ/L Carbon Dioxide Level 26.1 MEQ/L 25.4 MEQ/L Anion Gap 10 MEQ/L 11 MEQ/L Blood Urea Nitrogen 36 MG/DL 35 MG/DL Creatinine 1.75 MG/DL 1.68 MG/DL Estimat Glomerular Filtration 35 ML/MIN 37 ML/MIN Rate Random Glucose 183 MG/DL 116 MG/DL Calcium Level 9.3 MG/DL 9.1 MG/DL White Blood Count 9.0 TH/MM3 Red Blood Count 3.99 MIL/MM3 Hemoglobin 11.7 GM/DL Hematocrit 35.3 % Mean Corpuscular Volume 88.4 FL Mean Corpuscular Hemoglobin 29.2 PG Mean Corpuscular Hemoglobin 33.1 % Concent Red Cell Distribution Width 17.3 % Platelet Count 297 TH/MM3 Mean Platelet Volume 8.0 FL Neutrophils (%) (Auto) 58.9 % Lymphocytes (%) (Auto) 28.6 % Monocytes (%) (Auto) 9.9 % Eosinophils (%) (Auto) 1.9 % Basophils (%) (Auto) 0.7 % Neutrophils # (Auto) 5.3 TH/MM3 Lymphocytes # (Auto) 2.6 TH/MM3 Monocytes # (Auto) 0.9 TH/MM3 Eosinophils # (Auto) 0.2 TH/MM3 Basophils # (Auto) 0.1 TH/MM3 CBC Comment DIFF FINAL Differential Comment Magnesium Level 2.5 MG/DL Imaging Last Impressions Head CT 10/26/16 0000 Signed Impressions: Service Date/Time: Wednesday, October 26, 2016 13:02 - CONCLUSION: 1. No evidence of acute cortical infarction. 2. Subtle hypodensity in left basal ganglia may reflect edema or infarct. Akshat Kat MD Neck CTA 10/25/16 1125 Signed Impressions: Service Date/Time: Tuesday, October 25, 2016 11:46 - CONCLUSION: Bovine arch. Negative exam Mello Cameron MD Head CTA 10/25/16 1125 Signed Impressions: Service Date/Time: Tuesday, October 25, 2016 11:37 - CONCLUSION: 1. Embolus to the ICA terminus/left M1 segment. 2. Results called to Dr. Arvizu at the time of this dictation Trae Lima MD Chest X-Ray 10/25/16 0000 Signed Impressions: Service Date/Time: Tuesday, October 25, 2016 14:19 - CONCLUSION: Mild increase in interstitial edema. Herve Fam MD FACR Cerebral Arteriogram 10/25/16 0000 Signed Impressions: Service Date/Time: Tuesday, October 25, 2016 12:40 - CONCLUSION: 1. Successful left ICA terminus/M1 embolectomy as above. 2. This was a large thrombus. 2 passes were necessary to completely remove the clot burden. Trae Lima MD Objective Remarks General: NAD, AAOx3 Chest: Decreased breath sounds at the bases Cardiac: Regular Abd: +BS, soft, ND/NT Ext: moves all 4 extremities, strength improving on the right side. Neuro: Speech improving. A/P Problem List: (1) Acute CVA (cerebrovascular accident) Status: Acute Plan: - Mrs. Salinas was recently admitted from 10/12/16-10/17/16 for SOB/weakness and was found to have elevated troponin and A. flutter. She underwent A. flutter ablation/ cardioversion on 10/15/16. - Pt was discharged on Eliquis 5mg po BID and Plavix 75mg po daily at that admission. - She presented back to the ED on 10/25/16 with altered mental status and was unable to move her right side or speak. She was found to have right-sided weakness and a fixed gaze to the left. - Her initial CT scan of the brain was negative for acute disease. - CTA of the head which showed embolus to the right ICA. - She was taken to the interventional radiology suite where she underwent angiogram and was found to have a large clot at the ICA, M1 segment, s/p embolectomy with mormon of antegrade flow. - During the procedure she was given a heparin bolus. - She was admitted to the ICU with Neurology following. - Repeat Head CT (10/26/16) --> No evidence of acute cortical infarction. Subtle hypodensity in left basal ganglia may reflect edema or infarct. - Pt has been improving clinically. She is able to verbalize well and the movement/strength of right UE and LE is improving. - Neurology cleared the pt to resume Eliquis and has recommended ASA. Pt had been on Plavix previously. - Cont. PT/OT - DVT prophylaxis with SCDs (2) COPD (chronic obstructive pulmonary disease) Status: Chronic Plan: - Pt still requiring supplemental O2 - Duonebs - Try to wean O2 (3) DM2 (diabetes mellitus, type 2) Status: Chronic Plan: - NovoLog SSI - Accu checks (4) HTN (hypertension) Status: Chronic Plan: - Home meds have been held. - BP has been low/normal (5) Congestive heart failure Status: Chronic Plan: - Pt with chronic systolic CHF/cardiomyopathy with EF 20-25% s/p AICD - Bumex 1mg po BID was resumed on 10/27 - Creatinine was rising on 10/27, repeat labs with Cr 1.75 and Bumex was held last night. - Repeat Cr today was 1.68. Bumex resumed - CXR in AM - repeat labs in AM (6) Atrial flutter Status: Resolved Plan: - Pt with hx of atrial flutter s/p A. flutter ablation/cardioversion on 10/15/16 (7) CAD (coronary artery disease) Status: Acute (8) CKD (chronic kidney disease) stage 3, GFR 30-59 ml/min Status: Chronic Assessment and Plan Patient examined. Assessment and plan formulated with Christiana Villanueva PA-C. I agree with the above. let mca embolic cva. s/p embolectomy. discussed with dr Lima anticoagulation resumed. strength improving on right and aphasia resolved. hold diuretic and recheck cr....bhavana developing. will need snf. neurology following. Christiana Villanueva Oct 29, 2016 13:40
--- NOTE | 2016-10-29 15:46 | HHI.PR ---
Subjective Remarks was having some sob last night. Objective Vitals heart reg lung few basilar crackles abd s/nt ext no edema mild rue weakness Vital Signs Date Time Temp Pulse Resp B/P Pulse Ox O2 Delivery O2 Flow Rate FiO2 10/29/16 11:59 95.3 80 21 122/76 95 10/29/16 10:54 98 Nasal Cannula 2.00 10/29/16 08:00 95.9 80 18 114/75 93 10/29/16 05:32 96.8 80 16 106/73 94 10/29/16 01:55 80 10/29/16 00:00 96.5 80 20 118/79 93 10/28/16 22:59 18 10/28/16 20:00 96.6 80 20 114/69 97 10/28/16 16:00 97.1 80 18 110/70 94 10/28/16 10/28/16 10/29/16 15:00 23:00 07:00 Intake Total 1288 ml Output Total 250 ml Balance 1288 ml -250 ml IV Total 1288 ml Output Urine Total 250 ml # Voids 1 2 Result Diagram: 10/29/16 0549 10/29/16 0549 Imaging Last Impressions Head CT 10/26/16 0000 Signed Impressions: Service Date/Time: Wednesday, October 26, 2016 13:02 - CONCLUSION: 1. No evidence of acute cortical infarction. 2. Subtle hypodensity in left basal ganglia may reflect edema or infarct. Akshat Kat MD Neck CTA 10/25/165 Signed Impressions: Service Date/Time: Tuesday, October 25, 2016 11:46 - CONCLUSION: Bovine arch. Negative exam Mello Cameron MD Head CTA 10/25/16 1125 Signed Impressions: Service Date/Time: Tuesday, October 25, 2016 11:37 - CONCLUSION: 1. Embolus to the ICA terminus/left M1 segment. 2. Results called to Dr. Arvizu at the time of this dictation Trae Lima MD Chest X-Ray 10/25/16 0000 Signed Impressions: Service Date/Time: Tuesday, October 25, 2016 14:19 - CONCLUSION: Mild increase in interstitial edema. Herve Fam MD FACR Cerebral Arteriogram 10/25/16 0000 Signed Impressions: Service Date/Time: Tuesday, October 25, 2016 12:40 - CONCLUSION: 1. Successful left ICA terminus/M1 embolectomy as above. 2. This was a large thrombus. 2 passes were necessary to completely remove the clot burden. Trae Lima MD A/P Problem List: (1) Acute CVA (cerebrovascular accident) Status: Acute Plan: - Mrs. Salinas was recently admitted from 10/12/16-10/17/16 for SOB/weakness and was found to have elevated troponin and A. flutter. She underwent A. flutter ablation/ cardioversion on 10/15/16. - Pt was discharged on Eliquis 5mg po BID and Plavix 75mg po daily at that admission. - She presented back to the ED on 10/25/16 with altered mental status and was unable to move her right side or speak. She was found to have right-sided weakness and a fixed gaze to the left. - Her initial CT scan of the brain was negative for acute disease. - CTA of the head which showed embolus to the right ICA. - She was taken to the interventional radiology suite where she underwent angiogram and was found to have a large clot at the ICA, M1 segment, s/p embolectomy with denominational of antegrade flow. - During the procedure she was given a heparin bolus. - She was admitted to the ICU with Neurology following. - Repeat Head CT (10/26/16) --> No evidence of acute cortical infarction. Subtle hypodensity in left basal ganglia may reflect edema or infarct. - Pt has been improving clinically. She is able to verbalize well and the movement/strength of right UE and LE is improving. - Neurology cleared the pt to resume Eliquis and has recommended ASA. Pt had been on Plavix previously. - Cont. PT/OT -plan for snf next week. -mild bhavana..could be volume or contrast...requires some oxygen for hypoxia...will resume diuretic and follow cxr/bmp in AM. (2) COPD (chronic obstructive pulmonary disease) Status: Chronic Plan: - Pt still requiring supplemental O2 - Duonebs - Try to wean O2 (3) DM2 (diabetes mellitus, type 2) Status: Chronic Plan: - NovoLog SSI - Accu checks (4) HTN (hypertension) Status: Chronic Plan: - Home meds have been held. - BP has been low/normal (5) Congestive heart failure Status: Chronic Plan: - Pt with chronic systolic CHF/cardiomyopathy with EF 20-25% s/p AICD - Bumex 1mg po BID was resumed on 10/27 - Creatinine was rising on 10/27, repeat labs with Cr 1.75 and Bumex was held last night. - Repeat Cr today was 1.68. Bumex resumed - CXR in AM - repeat labs in AM (6) Atrial flutter Status: Resolved Plan: - Pt with hx of atrial flutter s/p A. flutter ablation/cardioversion on 10/15/16 (7) CAD (coronary artery disease) Status: Acute (8) CKD (chronic kidney disease) stage 3, GFR 30-59 ml/min Status: Chronic Julian Huff MD Oct 29, 2016 15:46
[2016-10-29] MEDS: BUMETANIDE 1 MG TAB PO SCH (17:29)
--- NOTE | 2016-10-29 18:15 | PD.CONS ---
[facility] Service Rehabilitation Medicine Consult Requested By Nida Orellana MD Reason for Consult Comprehensive rehabilitation evaluation. Primary Care Physician Unknown History of Present Illness Yamel Salinas is a 70-year-old right-hand dominant female admitted [facility] 10/25/16 with change of mental status, impaired speech and right sided weakness. Head CT showed no acute intracranial abnormality. CTA showed embolism in the left ICA and she underwent embolectomy. Follow-up head CT showed left basal ganglia hypodensity. She was started on Eliquis and aspirin. Review of Systems ROS Limitations: Speech Impaired Respiratory: DENIES: Shortness of breath Cardiovascular: DENIES: Chest pain Gastrointestinal: DENIES: Abdominal pain Neurologic: COMPLAINS OF: Localized weakness, Speech Problems, DENIES: Headache Past Family Social History Allergies: Coded Allergies: Aspirin (Verified Allergy, Mild, NAUSEA/VOMITING, 03/05/16) Past Medical History Atrial flutter COPD Diabetes type 2 Hypertension Chronic systolic CHF Cardiomyopathy Artery disease Chronic kidney disease Past Surgical History Cardiac ablation 10/15/16 Current Medications Current Medications Medications (Trade) Dose Ordered Sig/Gisela Route Start Time Stop Time Status Last Admin Miscellaneous Information 1 Q361D XX 10/25/16 14:15 10/25/16 17:39 (Chlorhexidine 2% Cloth) 3 pack Taper DAILY@04 TOP 10/26/16 04:00 10/22/17 03:59 10/27/16 04:00 (Chlorhexidine 2% Cloth) 3 pack UNSCH PRN TOP 10/25/16 14:15 (D50w (Vial) Inj) 25 ml UNSCH PRN IV PUSH 10/25/16 14:30 (Glucagon Inj) 1 mg UNSCH PRN OTHER 10/25/16 14:30 (NovoLIN R SUPPLEMENTAL SCALE) 1 Q6H SQ 10/25/16 15:00 10/29/16 15:00 (Zofran Inj) 4 mg Q6H PRN IV PUSH 10/26/16 20:45 10/26/16 21:02 (Eliquis) 5 mg BID PO 10/27/16 13:00 10/29/16 08:02 (Tylenol) 1,000 mg Q6H PRN PO 10/28/16 03:45 10/29/16 08:59 (Bumetanide) 1 mg BID@ PO 10/29/16 18:00 10/29/16 17:29 Family History Unable to obtain Social History Prior to admission patient lived in [place], [place]. She was independent with all mobility and ADLs Exam I&O / VS 10/28/16 10/28/16 10/29/16 15:00 23:00 07:00 Intake Total 1288 ml Output Total 250 ml Balance 1288 ml -250 ml IV Total 1288 ml Output Urine Total 250 ml # Voids 1 2 Vital Signs Date Time Temp Pulse Resp B/P Pulse Ox O2 Delivery O2 Flow Rate FiO2 10/29/16 16:00 95.5 80 20 118/77 94 10/29/16 11:59 95.3 80 21 122/76 95 10/29/16 10:54 98 Nasal Cannula 2.00 10/29/16 08:00 95.9 80 18 114/75 93 10/29/16 05:32 96.8 80 16 106/73 94 10/29/16 01:55 80 10/29/16 00:00 96.5 80 20 118/79 93 10/28/16 22:59 18 10/28/16 20:00 96.6 80 20 114/69 97 General: No acute distress Respiratory: Lungs CTA, Non-labored respirations, BS equal Gastrointestinal: Positive Bowel Sounds, Non-Distended, Non-Tender Cardiovascular: Normal rate, Regular Rhythm Skin: Other (know That rash noted) Musculoskeletal: ROM (within normal limits) Psychiatric: Cooperative, Appropriate mood & affect Orientation: oriented to Self (able to state her name), oriented to Situation Neurologic: Speech (word finding difficulties and paraphasic errors) Motor: Right Upper Extremity (4/5), Left Upper Extremity (5/5), Right Lower Extremity (4 minus/5), Left Lower Extremity (5/5) Sensory Difficult to assess but appears to be impaired in the right upper lower extremity Clonus: Negative Assessment and Plan Diagnosis: (1) Acute CVA (cerebrovascular accident) Assessment 1. Left ICA embolism status post embolectomy with left basal ganglia ischemic infarct 2. Right hemiparesis 3. Aphasia 4. Impaired mobility and ADLs 5. Atrial flutter status post ablation 6. COPD 7. Diabetes mellitus type 2 8. Hypertension 9. Chronic systolic CHF/cardiomyopathy 10. CAD 11. Chronic kidney disease Plan 1. Speech therapy is evaluated swallow and tolerating soft diet. Moderate communication deficits are being addressed 2. Progressing with mobility and now contact guard for transfers and ambulate with a rolling walker 10 feet 2 with contact guard 3. Occupational therapy addressing ADLs now minimal assistance for upper body dressing 4. Monitor carefully for falls 5. Patient will likely need ongoing rehabilitation at discharge and case management has begun referrals 6. Will follow-up hospitalized and at discharge Thank you for this consult Gabriela Pinon MD Oct 29, 2016 18:15
[2016-10-29] MEDS: ZOLPIDEM TARTRATE 10 MG TAB PO PRN (23:58)
[2016-10-30] VITALS (10 sets, daily range): BP systolic 108–121; BP diastolic 68–80; PULSE 80–82; RESP 20–22; TEMP 95.2–96.7; O2SAT 94–100
[2016-10-30] MEDS: INSULIN NovoLIN REGULAR SUPPLEMENTAL SCALE SQ SCH ×4 (03:56→20:44)
[2016-10-30] MEDS: CHLORHEXIDINE GLUCONATE 2 % 1 PACK (2 CLOTHS) TOP SCH (03:56)
--- NOTE | 2016-10-30 06:14 | RADRPT ---
EXAM DATE/TIME: 10/30/2016 05:50 [facility] COMPARISON: CHEST SINGLE AP, October 28, 2016, 10:26. INDICATIONS : Edema. Weakness. MEDICAL HISTORY : Stroke. Congestive heart failure. SURGICAL HISTORY : Hysterectomy. ENCOUNTER: Subsequent ACUITY: 4 - 6 days PAIN SCORE: Non-responsive. LOCATION: Bilateral chest FINDINGS: The cardiac silhouette is enlarged. There is a multilead pacing device in place in the left chest. Th ere is increased density at the left base the silhouette of the left hemidiaphragm. The right lung is grossly clear. CONCLUSION: Cardiomegaly. There is increased density at the left base potentially related to the cardiomegaly clemencia bowen some superimposed left lower lobe atelectasis or consolidation. This appearance is unchanged. Mello Oglesby MD on October 30, 2016 at 6:11 Board Certified Radiologist. This report was verified electronically.
[2016-10-30 08:01] LABS: BICARBONATE 23.2 MEQ/L (21.0-32.0); POTASSIUM 4.4 MEQ/L (3.5-5.1)
[2016-10-30] MEDS: BUMETANIDE 1 MG TAB PO SCH ×2 (08:20→17:23)
[2016-10-30] MEDS: APIXABAN 5 MG TABLET PO SCH ×2 (08:20→20:43)
[2016-10-30] MEDS ORDERED: RESP: ALBUTEROL 2.5 MG/IPRATROPIUM 0.5 MG NEB (SCH) NEB ONE (09:00)
[2016-10-30 10:12] LABS: BLOOD GAS BASE EXCESS -1.5 mmol/L (-2-2); BLOOD GAS CARBOXYHEMOGLOBIN 1.6 % (0-4); BLOOD GAS HCO3 22 mmol/L (22-26); BLOOD GAS METHEMOGLOBIN 0.6 % (0-2); BLOOD GAS O2 HGB SATURATION 89 % (90-100); BLOOD GAS OXYGEN CONTENT 15.4 Vol % (12.0-20.0); BLOOD GAS PCO2 30 mmHg (38-42); BLOOD GAS PO2 64 mmHg (61-120); BLOOD GAS TOTAL HGB 12.4 G/DL (12.0-16.0); TEMP CORR TO 98.6
[2016-10-30 10:13] LABS: CRITICAL VALUE YES; DRAW SITE RT RADIAL; FIO2 21 %; NUMBER OF ARTERIAL PUNCTURES 1; STAT YES; ULNAR PULSE PRESENT
[2016-10-30] MEDS: RESP: ALBUTEROL 2.5 MG/IPRATROPIUM 0.5 MG NEB (SCH) NEB ×3 (11:17→20:39)
--- NOTE | 2016-10-30 15:52 | HHI.PR ---
Subjective Remarks was more lethargic. staring past me intermittent answers Objective Vitals no facial droop eyes open. glazed follows commands slowly heart reg lung brandan wheezing right worse abd s/nt ext no edema Vital Signs Date Time Temp Pulse Resp B/P Pulse Ox O2 Delivery O2 Flow Rate FiO2 10/30/16 12:00 96.0 80 22 112/68 97 10/30/16 11:18 95 Nasal Cannula 2.00 10/30/16 08:00 96.4 80 22 118/79 98 10/30/16 04:00 95.5 80 20 121/80 96 10/30/16 00:00 95.2 80 20 118/80 94 10/29/16 20:02 Nasal Cannula 2.00 10/29/16 20:00 96.1 80 22 113/79 93 10/29/16 19:15 80 10/29/16 18:46 80 10/29/16 16:00 95.5 80 20 118/77 94 10/29/16 10/29/16 10/30/16 15:00 23:00 07:00 Intake Total 240 ml Output Total 400 ml 300 ml Balance -400 ml -60 ml Intake Oral 240 ml Output Urine Total 400 ml 300 ml # Voids 3 # Bowel Movements 3 0 Result Diagram: 10/29/16 0549 10/30/16 0640 Imaging Last Impressions Head CT 10/26/16 0000 Signed Impressions: Service Date/Time: Wednesday, October 26, 2016 13:02 - CONCLUSION: 1. No evidence of acute cortical infarction. 2. Subtle hypodensity in left basal ganglia may reflect edema or infarct. Akshat Kat MD Neck CTA 10/25/16 1125 Signed Impressions: Service Date/Time: Tuesday, October 25, 2016 11:46 - CONCLUSION: Bovine arch. Negative exam Mello Cameron MD Head CTA 10/25/16 1125 Signed Impressions: Service Date/Time: Tuesday, October 25, 2016 11:37 - CONCLUSION: 1. Embolus to the ICA terminus/left M1 segment. 2. Results called to Dr. Arvizu at the time of this dictation Trae Lima MD Chest X-Ray 10/25/16 0000 Signed Impressions: Service Date/Time: Tuesday, October 25, 2016 14:19 - CONCLUSION: Mild increase in interstitial edema. Herve Fam MD FACR Cerebral Arteriogram 10/25/16 0000 Signed Impressions: Service Date/Time: Tuesday, October 25, 2016 12:40 - CONCLUSION: 1. Successful left ICA terminus/M1 embolectomy as above. 2. This was a large thrombus. 2 passes were necessary to completely remove the clot burden. Trae Lima MD A/P Problem List: (1) Acute CVA (cerebrovascular accident) Status: Acute Plan: - Mrs. Salinas was recently admitted from 10/12/16-10/17/16 for SOB/weakness and was found to have elevated troponin and A. flutter. She underwent A. flutter ablation/ cardioversion on 10/15/16. - Pt was discharged on Eliquis 5mg po BID and Plavix 75mg po daily at that admission. - She presented back to the ED on 10/25/16 with altered mental status and was unable to move her right side or speak. She was found to have right-sided weakness and a fixed gaze to the left. - Her initial CT scan of the brain was negative for acute disease. - CTA of the head which showed embolus to the right ICA. - She was taken to the interventional radiology suite where she underwent angiogram and was found to have a large clot at the ICA, M1 segment, s/p embolectomy with congregation of antegrade flow. - During the procedure she was given a heparin bolus. - She was admitted to the ICU with Neurology following. - Repeat Head CT (10/26/16) --> No evidence of acute cortical infarction. Subtle hypodensity in left basal ganglia may reflect edema or infarct. - Pt has been improving clinically. She is able to verbalize well and the movement/strength of right UE and LE is improving. - Neurology cleared the pt to resume Eliquis and has recommended ASA. Pt had been on Plavix previously. - Cont. PT/OT -plan for snf next week. -mild bhavana..could be volume or contrast...requires some oxygen for hypoxia...resumed diuretic. discussed with renal and they will follow. will cont diuretic. pt more lethargic this AM...was given a sleeping pill. abg noted. called nurse back after rounds and pt much more alert now. duonebs ordered for wheezing. (2) COPD (chronic obstructive pulmonary disease) Status: Chronic Plan: - Pt still requiring supplemental O2 - Duonebs - Try to wean O2 (3) DM2 (diabetes mellitus, type 2) Status: Chronic Plan: - NovoLog SSI - Accu checks (4) HTN (hypertension) Status: Chronic Plan: - Home meds have been held. - BP has been low/normal (5) Congestive heart failure Status: Chronic Plan: - Pt with chronic systolic CHF/cardiomyopathy with EF 20-25% s/p AICD - Bumex 1mg po BID was resumed on 10/27 - Creatinine was rising on 10/27, repeat labs with Cr 1.75 and Bumex was held last night. - Repeat Cr today was 1.68. Bumex resumed - CXR in AM - repeat labs in AM (6) Atrial flutter Status: Resolved Plan: - Pt with hx of atrial flutter s/p A. flutter ablation/cardioversion on 10/15/16 (7) CAD (coronary artery disease) Status: Acute (8) CKD (chronic kidney disease) stage 3, GFR 30-59 ml/min Status: Chronic Julian Huff MD Oct 30, 2016 15:52
--- NOTE | 2016-10-30 19:41 | MB ---
cc: JERILYN SHAFER MD DATE OF CONSULTATION 10/30/16 REASON FOR CONSULTATION Acute on chronic kidney disease management. HISTORY OF PRESENT ILLNESS This is a 70-year-old female with history of hypertension, dyslipidemia and diabetes. She had a recent admission here last month with atrial flutter and had a flutter ablation. The patient presented for admission here on October 25 and was found to have altered mental status. She was found to have a right sided ischemic stroke. She was taken to interventional radiology where she underwent an angiogram and embolectomy with bahai of flow post stroke. The patient has been monitored on the floor here and has been doing well post CVA. She has been regaining some strength and has been continued with physical therapy here, Her atrial flutter has been stable. However, she does have an underlying history of CHF with a 20-25% EF as well as an AICD. Regarding her renal function, her baseline creatinine ranged between 1.2-1.4 corresponding to a GFR in the 40s. Her creatinine here has risen from 1.19 at time of admission up to 1.6 and then 1.7 and 1.8 today. She was seen with the primary team and today she was started on Bumex at 1 mg p.o. b.i.d. Given her renal failure with history of CHF and increasing creatinine, nephrology was consulted for further evaluation. PAST MEDICAL HISTORY 1. Hypertension, 2. Dyslipidemia 3. Diabetes 4. Atrial flutter 5. CAD, 6. Cardiomyopathy with EF 20-25%. PAST SURGICAL HISTORY 1. Cholecystectomy, 2. Hysterectomy, 3. Pacemaker and defibrillator 4. Recent atrial flutter ablation ALLERGIES ASPIRIN SOCIAL HISTORY No tobacco or alcohol use. MEDICATIONS At home, 1. Vitamin C 2. Restoril 3. Zocor. 4. Multivitamins. 5. Metformin. 6. Iron 7. Glipizide 8. Eliquis. 9. Digoxin. 10. Plavix. 11. Coreg. 12. Bumex. 13. Amiodarone. FAMILY HISTORY Son had ESRD and is . REVIEW OF SYSTEMS At the time of evaluation, the patient reports some ongoing weakness. No chest pains. No nausea, no vomiting, no diarrhea, no dizziness or loss of consciousness. Otherwise, review of systems negative. PHYSICAL EXAMINATION At time of evaluation GENERAL: Awake, alert, oriented, no apparent distress. NECK: Soft, supple. No lymphadenopathy. CARDIAC: Regular rate and rhythm. PULMONARY: Lungs clear to auscultation. ABDOMEN: Soft, nontender, nondistended. EXTREMITIES: No edema. The patient with some mild right-sided weakness. LABORATORY FINDINGS White count 9, hemoglobin 11.7, hematocrit 35.3 with platelet count of 297. Sodium 138, potassium 4.4, chloride 103, bicarb 23.2, BUN 40, creatinine 1.8. Baseline creatinine ranged between 1.2 and 1.4. Urinalysis with trace protein, initial 4 hyaline casts and few mucus seen. ASSESSMENT/PLAN 1. Acute kidney injury on apparent chronic kidney disease stage III. The patient has a baseline creatinine that has ranged between 1.2 and 1.4 over the last year corresponding to a GFR in the 40s. She does have hypertension with minimal proteinuria and this may be the reason for her mild chronic kidney disease. She has suffered some acute kidney injury with an elevation in creatinine up to 1.8. The patient has been making good urine output and has had 700 mL of urine output over the last 24 hours and is voiding as well. She has an underlying history of CHF with a 20% EF. The patient was noted to have increasing oxygen demand so needed oxygen nasal cannula while walking. Diuretics were started today with Bumex 1 mg p.o. b.i.d. and she had been on Bumex at home. At this point, I agree with reinitiation of Bumex. She may have some mild acute kidney injury secondary to her underlying CHF and recent CVA. In addition, she had recent contrast exposure for angiogram and embolectomy of thrombus for stroke. At this point, continue with Bumex as ordered at 1 mg p.o. b.i.d. Continue to monitor urine output and renal function. Renal function is slightly elevated versus her baseline, however, her urine output is still good at this point. Continue to monitor. 2. Acute CVA. The patient had a left MCA ischemic stroke with embolectomy done by interventional radiology. The patient was exposed to contrast at that time. At this point, her symptoms appear stable. Continue follow up with physical therapy. 3. COPD. The patient is on oxygen when walking. Diuretics have been started with Bumex. Continue for now. 4. Diabetes. Continue medications. 5. Hypertension. Blood pressure is stable at this point. Continue to monitor, 6. Congestive heart failure. The patient has a history of 20% ejection fraction and does have an ICD in place. Continue diuresis with Bumex as ordered. 7. History of atrial flutter. The patient had cardioversion last month. Continue to monitor. MD INDIA RossP/ /2:41 PM /7:20 PM MTDD
[2016-10-30] MEDS: ACETAMINOPHEN 500 MG CPLT PO PRN (23:13)
[2016-10-31] VITALS (10 sets, daily range): BP systolic 115–127; BP diastolic 77–87; PULSE 79–85; RESP 16–18; TEMP 96.2–98.9; O2SAT 94–98
[2016-10-31] MEDS: INSULIN NovoLIN REGULAR SUPPLEMENTAL SCALE SQ SCH ×4 (02:48→21:59)
[2016-10-31] MEDS: CHLORHEXIDINE GLUCONATE 2 % 1 PACK (2 CLOTHS) TOP SCH (02:50)
[2016-10-31] MEDS: RESP: ALBUTEROL 2.5 MG/IPRATROPIUM 0.5 MG NEB (SCH) NEB ×4 (07:39→19:57)
[2016-10-31] MEDS: BUMETANIDE 1 MG TAB PO SCH ×2 (08:40→17:24)
[2016-10-31] MEDS: APIXABAN 5 MG TABLET PO SCH ×2 (08:40→21:59)
[2016-10-31] MEDS: ACETAMINOPHEN 500 MG CPLT PO PRN ×2 (08:40→22:04)
--- NOTE | 2016-10-31 10:25 | HHI.PR ---
Subjective Remarks looks better today trying to eat family present. Objective Vitals heart reg lung improved wheezing abd s/nt ext no edema rue still weaker aphasia resolved. Vital Signs Date Time Temp Pulse Resp B/P Pulse Ox O2 Delivery O2 Flow Rate FiO2 10/31/16 09:24 80 10/31/16 08:11 96.5 80 18 115/77 98 10/31/16 07:41 97 Nasal Cannula 2.00 10/31/16 04:00 98.9 83 16 116/77 94 10/31/16 00:13 20 10/31/16 00:00 97.4 85 18 120/80 95 10/30/16 20:40 97 Nasal Cannula 2.00 10/30/16 20:00 82 10/30/16 20:00 95.6 80 20 118/80 100 10/30/16 19:52 82 10/30/16 16:00 96.7 80 22 108/72 96 10/30/16 12:00 96.0 80 22 112/68 97 10/30/16 11:18 95 Nasal Cannula 2.00 10/30/16 10/30/16 10/31/16 15:00 23:00 07:00 Intake Total 480 ml Output Total 600 ml Balance -120 ml Intake Oral 480 ml Output Urine Total 600 ml # Voids 2 2 3 Result Diagram: 10/29/16 0549 10/30/16 0640 Imaging Last Impressions Head CT 10/26/16 0000 Signed Impressions: Service Date/Time: Wednesday, October 26, 2016 13:02 - CONCLUSION: 1. No evidence of acute cortical infarction. 2. Subtle hypodensity in left basal ganglia may reflect edema or infarct. Akshat Kat MD Neck CTA 10/25/165 Signed Impressions: Service Date/Time: Tuesday, October 25, 2016 11:46 - CONCLUSION: Bovine arch. Negative exam Mello Cameron MD Head CTA 10/25/161124 Signed Impressions: Service Date/Time: Tuesday, October 25, 2016 11:37 - CONCLUSION: 1. Embolus to the ICA terminus/left M1 segment. 2. Results called to Dr. Arvizu at the time of this dictation Trae Lima MD Chest X-Ray 10/25/16 0000 Signed Impressions: Service Date/Time: Tuesday, October 25, 2016 14:19 - CONCLUSION: Mild increase in interstitial edema. Herve Fam MD FACR Cerebral Arteriogram 10/25/16 0000 Signed Impressions: Service Date/Time: Tuesday, October 25, 2016 12:40 - CONCLUSION: 1. Successful left ICA terminus/M1 embolectomy as above. 2. This was a large thrombus. 2 passes were necessary to completely remove the clot burden. Trae Lima MD A/P Problem List: (1) Acute CVA (cerebrovascular accident) Status: Acute Plan: - Mrs. Salinas was recently admitted from 10/12/16-10/17/16 for SOB/weakness and was found to have elevated troponin and A. flutter. She underwent A. flutter ablation/ cardioversion on 10/15/16. - Pt was discharged on Eliquis 5mg po BID and Plavix 75mg po daily at that admission. - She presented back to the ED on 10/25/16 with altered mental status and was unable to move her right side or speak. She was found to have right-sided weakness and a fixed gaze to the left. - Her initial CT scan of the brain was negative for acute disease. - CTA of the head which showed embolus to the right ICA. - She was taken to the interventional radiology suite where she underwent angiogram and was found to have a large clot at the ICA, M1 segment, s/p embolectomy with catholic of antegrade flow. - During the procedure she was given a heparin bolus. - She was admitted to the ICU with Neurology following. - Repeat Head CT (10/26/16) --> No evidence of acute cortical infarction. Subtle hypodensity in left basal ganglia may reflect edema or infarct. - Pt has been improving clinically. She is able to verbalize well and the movement/strength of right UE and LE is improving. - Neurology cleared the pt to resume Eliquis and has recommended ASA. Pt had been on Plavix previously. - Cont. PT/OT -plan for snf next week. -mild bhavana..could be volume or contrast...requires some oxygen for hypoxia...resumed diuretic. discussed with renal and they will follow. will cont diuretic. pt more lethargic yesterday..now improved...was given a sleeping pill. abg noted. wheezing better with duonebs. continue to monitor here in hospital...she might be stable for d/c in next 2 or 3 days. updated family (2) COPD (chronic obstructive pulmonary disease) Status: Chronic Plan: - Pt still requiring supplemental O2 - Duonebs - Try to wean O2 (3) DM2 (diabetes mellitus, type 2) Status: Chronic Plan: - NovoLog SSI - Accu checks (4) HTN (hypertension) Status: Chronic Plan: - Home meds have been held. - BP has been low/normal (5) Congestive heart failure Status: Chronic Plan: - Pt with chronic systolic CHF/cardiomyopathy with EF 20-25% s/p AICD - Bumex 1mg po BID was resumed on 10/27 - Creatinine was rising on 10/27, repeat labs with Cr 1.75 and Bumex was held last night. - Repeat Cr today was 1.68. Bumex resumed - CXR in AM - repeat labs in AM (6) Atrial flutter Status: Resolved Plan: - Pt with hx of atrial flutter s/p A. flutter ablation/cardioversion on 10/15/16 (7) CAD (coronary artery disease) Status: Acute (8) CKD (chronic kidney disease) stage 3, GFR 30-59 ml/min Status: Chronic Julian Huff MD Oct 31, 2016 10:25
[2016-10-31 11:04] LABS: BICARBONATE 22.1 MEQ/L (21.0-32.0); POTASSIUM 4.4 MEQ/L (3.5-5.1)
--- NOTE | 2016-10-31 13:55 | HHI.NPPN ---
Subjective Additional Remarks no acute complaints Objective Data Data 10/30/16 10/31/16 19:00 07:00 Intake Total 480 ml Output Total 600 ml Balance -120 ml Intake Oral 480 ml Output Urine Total 600 ml # Voids 3 4 Vital Signs Date Time Temp Pulse Resp B/P Pulse Ox O2 Delivery O2 Flow Rate FiO2 10/31/16 12:44 96.6 80 18 117/80 96 10/31/16 09:24 80 10/31/16 08:11 96.5 80 18 115/77 98 10/31/16 07:41 97 Nasal Cannula 2.00 10/31/16 04:00 98.9 83 16 116/77 94 10/31/16 00:13 20 10/31/16 00:00 97.4 85 18 120/80 95 10/30/16 20:40 97 Nasal Cannula 2.00 10/30/16 20:00 82 10/30/16 20:00 95.6 80 20 118/80 100 10/30/16 19:52 82 10/30/16 16:00 96.7 80 22 108/72 96 -: 10/29/16 0549 10/31/16 0922 Physical Exam General Appearance: Well Developed, Well Nourished, No Acute Distress Throat Throat Exam: Oral Mucosa [place] & Moist Neck Neck Exam: Neck Supple Pulmonary Resp Exam: Clear Bilaterally Cardiology CV Exam: Regular, Normal Sinus Rhythm Gastrointestinal/Abdomen GI Exam: Soft, Non-Tender, Positive Bowel Movement Integumentary Skin Exam: Dry, Intact Extremeties Extremities Exam: No Edema Neurologic Neuro Exam: Alert, Awake Assessment/Plan Problem List: (1) CKD (chronic kidney disease) stage 3, GFR 30-59 ml/min Plan: Baseline creatinine that has ranged between 1.2 and 1.4 over the last year corresponding to a GFR in the 40s. CKD likely due to HTN. Creatinine 1.8 -> 2 today. PREMA potentially due to contrast exposure from embolectomy procedure for CVA. Underlying history of CHF with a 20% EF. Continue on bumex 1mg PO BID for now Renal function relatively stable, 600cc UOP/ 24 hours Continue to monitor urine output and renal function (2) Acute CVA (cerebrovascular accident) Plan: Left MCA ischemic stroke with embolectomy done by interventional radiology. The patient was exposed to contrast at that time. At this point, her symptoms appear stable. Continue to monitor (3) Congestive heart failure Plan: History of 20% ejection fraction and does have an ICD in place. Continue diuresis with Bumex as ordered. (4) Atrial flutter Plan: s/p cardioversion last month, stable (5) DM2 (diabetes mellitus, type 2) Plan: monitor glucose (6) HTN (hypertension) Plan: BP stable Problem Qualifiers (1) Congestive heart failure: Qualified Code: I50.9 - Congestive heart failure, unspecified congestive heart failure chronicity, unspecified congestive heart failure type (2) Atrial flutter: Qualified Code: I48.92 - Atrial flutter, unspecified type (3) DM2 (diabetes mellitus, type 2): Qualified Code: E11.22 - Type 2 diabetes mellitus with diabetic chronic kidney disease, unspecified CKD stage, unspecified long-term insulin use status (4) HTN (hypertension): Qualified Code: I10 - Essential hypertension Wade Cunningham MD Oct 31, 2016 13:55
[2016-11-01] VITALS (9 sets, daily range): BP systolic 111–121; BP diastolic 68–77; PULSE 18–80; RESP 18–24; TEMP 95.8–98.8; O2SAT 94–100
[2016-11-01] MEDS: ZOLPIDEM TARTRATE 10 MG TAB PO PRN ×2 (01:29→21:27)
[2016-11-01] MEDS: CHLORHEXIDINE GLUCONATE 2 % 1 PACK (2 CLOTHS) TOP SCH (03:45)
[2016-11-01] MEDS: INSULIN NovoLIN REGULAR SUPPLEMENTAL SCALE SQ SCH ×4 (03:46→21:50)
[2016-11-01 07:52] LABS: BICARBONATE 23.8 MEQ/L (21.0-32.0); POTASSIUM 3.9 MEQ/L (3.5-5.1)
[2016-11-01] MEDS: RESP: ALBUTEROL 2.5 MG/IPRATROPIUM 0.5 MG NEB (SCH) NEB ×4 (08:35→20:36)
[2016-11-01] MEDS: APIXABAN 5 MG TABLET PO SCH ×2 (08:47→21:27)
[2016-11-01] MEDS: BUMETANIDE 1 MG TAB PO SCH ×2 (08:47→18:05)
[2016-11-01] MEDS: ASPIRIN 81 MG CHEW TAB CHEW SCH (08:47)
--- NOTE | 2016-11-01 14:34 | HHI.NPPN ---
Subjective Additional Remarks anxious Review of Systems Psych Psych: Anxiety Objective Data Data 10/31/16 11/01/16 18:59 06:59 Intake Total 240 ml 360 ml Balance 240 ml 360 ml Intake Oral 240 ml 360 ml # Voids 3 2 # Bowel Movements 2 Vital Signs Date Time Temp Pulse Resp B/P Pulse Ox O2 Delivery O2 Flow Rate FiO2 11/01/16 12:41 95.8 18 20 121/72 99 11/01/16 08:45 94 21 11/01/16 08:36 97.0 80 20 113/74 95 11/01/16 07:49 80 11/01/16 04:00 96.3 80 18 118/70 96 11/01/16 00:00 95.8 80 18 114/77 100 10/31/16 20:00 96.2 80 18 116/77 96 10/31/16 19:59 97 Nasal Cannula 2.00 10/31/16 18:15 79 10/31/16 16:34 98.1 80 18 127/87 98 -: 10/29/16 0549 11/01/16 0634 Physical Exam General Appearance: Well Developed, Well Nourished, No Acute Distress Throat Throat Exam: Oral Mucosa [place] & Moist Neck Neck Exam: Neck Supple Pulmonary Resp Exam: Clear Bilaterally Cardiology CV Exam: Regular, Normal Sinus Rhythm Gastrointestinal/Abdomen GI Exam: Soft, Non-Tender, Positive Bowel Movement Integumentary Skin Exam: Dry, Intact Extremeties Extremities Exam: No Edema Neurologic Neuro Exam: Alert, Awake Assessment/Plan Problem List: (1) CKD (chronic kidney disease) stage 3, GFR 30-59 ml/min Plan: Baseline creatinine that has ranged between 1.2 and 1.4 over the last year corresponding to a GFR in the 40s. CKD likely due to HTN. Creatinine 1.8 -> 2 --> 1.99 today. PREMA potentially due to contrast exposure from embolectomy procedure for CVA. Underlying history of CHF with a 20% EF. Continue on bumex 1mg PO BID for now Renal function relatively stable, Continue to monitor urine output and renal function (2) Acute CVA (cerebrovascular accident) Plan: Left MCA ischemic stroke with embolectomy done by interventional radiology. The patient was exposed to contrast at that time. At this point, her symptoms appear stable. Continue to monitor (3) Congestive heart failure Plan: History of 20% ejection fraction and does have an ICD in place. Continue diuresis with Bumex as ordered. (4) Atrial flutter Plan: s/p cardioversion last month, stable (5) DM2 (diabetes mellitus, type 2) Plan: monitor glucose (6) HTN (hypertension) Plan: BP stable Problem Qualifiers (1) Congestive heart failure: Qualified Code: I50.9 - Congestive heart failure, unspecified congestive heart failure chronicity, unspecified congestive heart failure type (2) Atrial flutter: Qualified Code: I48.92 - Atrial flutter, unspecified type (3) DM2 (diabetes mellitus, type 2): Qualified Code: E11.22 - Type 2 diabetes mellitus with diabetic chronic kidney disease, unspecified CKD stage, unspecified chcf insulin use status (4) HTN (hypertension): Qualified Code: I10 - Essential hypertension Thad Quiroz MD Nov 01, 2016 14:34
--- NOTE | 2016-11-01 15:27 | HHI.PR ---
Subjective Remarks Pt initially anxious when I arrived in the room. Pt surrounded by 6 family members. Objective Vitals Vital Signs Date Time Temp Pulse Resp B/P Pulse Ox O2 Delivery O2 Flow Rate FiO2 11/01/16 12:41 95.8 18 20 121/72 99 11/01/16 08:45 94 21 11/01/16 08:36 97.0 80 20 113/74 95 11/01/16 07:49 80 11/01/16 04:00 96.3 80 18 118/70 96 11/01/16 00:00 95.8 80 18 114/77 100 10/31/16 20:00 96.2 80 18 116/77 96 10/31/16 19:59 97 Nasal Cannula 2.00 10/31/16 18:15 79 10/31/16 16:34 98.1 80 18 127/87 98 10/31/16 10/31/16 11/01/16 15:00 23:00 07:00 Intake Total 240 ml 360 ml Balance 240 ml 360 ml Intake Oral 240 ml 360 ml # Voids 2 1 2 # Bowel Movements 1 1 Result Diagram: 10/29/16 0549 11/01/16 0634 Imaging Last Impressions Chest X-Ray 10/30/16 0600 Signed Impressions: Service Date/Time: Sunday, October 30, 2016 05:50 - CONCLUSION: Cardiomegaly. There is increased density at the left base potentially related to the cardiomegaly versus some superimposed left lower lobe atelectasis or consolidation. This appearance is unchanged. Mello Oglesby MD Head CT 10/26/16 0000 Signed Impressions: Service Date/Time: Wednesday, October 26, 2016 13:02 - CONCLUSION: 1. No evidence of acute cortical infarction. 2. Subtle hypodensity in left basal ganglia may reflect edema or infarct. Akshat Kat MD Neck CTA [id number] Signed Impressions: Service Date/Time: Tuesday, October 25, 2016 11:46 - CONCLUSION: Bovine arch. Negative exam Mello Cameron MD Head CTA [id number] Signed Impressions: Service Date/Time: Tuesday, October 25, 2016 11:37 - CONCLUSION: 1. Embolus to the ICA terminus/left M1 segment. 2. Results called to Dr. Arvizu at the time of this dictation Trae Lima MD Cerebral Arteriogram 10/25/16 0000 Signed Impressions: Service Date/Time: Tuesday, October 25, 2016 12:40 - CONCLUSION: 1. Successful left ICA terminus/M1 embolectomy as above. 2. This was a large thrombus. 2 passes were necessary to completely remove the clot burden. Trae Lima MD Objective Remarks GENERAL: This is a well-nourished, well-developed patient, in no apparent distress. CARDIOVASCULAR: Regular rate and rhythm without murmurs, gallops, or rubs. RESPIRATORY: Clear to auscultation. Breath sounds equal bilaterally. No wheezes , rales, or rhonchi. GASTROINTESTINAL: Abdomen soft, non-tender, nondistended. Normal active bowel sounds MUSCULOSKELETAL: Extremities without clubbing, cyanosis, or edema. NEURO: Alert & Oriented x3, but confused at times, mild RUE weakness A/P Problem List: (1) Acute CVA (cerebrovascular accident) Status: Acute Plan: - Mrs. Salinas was recently admitted from 10/12/16-10/17/16 for SOB/weakness and was found to have elevated troponin and A. flutter. She underwent A. flutter ablation/ cardioversion on 10/15/16. - Pt was discharged on Eliquis 5mg po BID and Plavix 75mg po daily at that admission. - She presented back to the ED on 10/25/16 with altered mental status and was unable to move her right side or speak. She was found to have right-sided weakness and a fixed gaze to the left. - Her initial CT scan of the brain was negative for acute disease. - CTA of the head which showed embolus to the right ICA. - She was taken to the interventional radiology suite where she underwent angiogram and was found to have a large clot at the ICA, M1 segment, s/p embolectomy with sabianist of antegrade flow. - During the procedure she was given a heparin bolus. - She was admitted to the ICU with Neurology following. - Repeat Head CT (10/26/16) --> No evidence of acute cortical infarction. Subtle hypodensity in left basal ganglia may reflect edema or infarct. - Pt has been improving clinically. She is able to verbalize well and the movement/strength of right UE and LE is improving. - Neurology cleared the pt to resume Eliquis and has recommended ASA. Pt had been on Plavix previously. - Cont. PT/OT -plan for snf next week. -mild bhavana..could be volume or contrast...requires some oxygen for hypoxia...resumed diuretic. discussed with renal and they will follow. will cont diuretic. pt more lethargic yesterday..now improved...was given a sleeping pill. abg noted. wheezing better with duonebs. continue to monitor here in hospital...she might be stable for d/c in next 2 or 3 days. updated family 11/01/16 - Pt interviewed and examined - still with some RUE weakness - Creatinine improving - continue IVFs - repeat BMP in AM - anticipate d/c to SNF 11/02/16 (2) COPD (chronic obstructive pulmonary disease) Status: Chronic Plan: - Pt still requiring supplemental O2 - Duonebs - Try to wean O2 (3) DM2 (diabetes mellitus, type 2) Status: Chronic Plan: - NovoLog SSI - Accu checks (4) HTN (hypertension) Status: Chronic Plan: - Home meds have been held. - BP has been low/normal (5) Congestive heart failure Status: Chronic Plan: - Pt with chronic systolic CHF/cardiomyopathy with EF 20-25% s/p AICD - Bumex 1mg po BID was resumed on 10/27 - Creatinine was rising on 10/27, repeat labs with Cr 1.75 and Bumex was held last night. - Repeat Cr today was 1.68. Bumex resumed - CXR in AM - repeat labs in AM (6) Atrial flutter Status: Resolved Plan: - Pt with hx of atrial flutter s/p A. flutter ablation/cardioversion on 10/15/16 (7) CAD (coronary artery disease) Status: Acute (8) CKD (chronic kidney disease) stage 3, GFR 30-59 ml/min Status: Chronic Problem Qualifiers (1) DM2 (diabetes mellitus, type 2): Qualified Code: E11.22 - Type 2 diabetes mellitus with diabetic chronic kidney disease, unspecified CKD stage, unspecified custodial insulin use status (2) HTN (hypertension): Qualified Code: I10 - Essential hypertension (3) Congestive heart failure: Qualified Code: I50.9 - Congestive heart failure, unspecified congestive heart failure chronicity, unspecified congestive heart failure type (4) Atrial flutter: Qualified Code: I48.92 - Atrial flutter, unspecified type Yo Suarez DO Nov 01, 2016 15:27
[2016-11-01] MEDS: LORazepam 0.5 MG TAB PO PRN (15:55)
[2016-11-01] MEDS: ACETAMINOPHEN 500 MG CPLT PO PRN (21:27)
[2016-11-02 00:44] VITALS: BP 121/77; PULSE 80; RESP 20; TEMP 97.7; O2SAT 95
[2016-11-02 02:46] VITALS: PULSE 80
[2016-11-02] MEDS: LORazepam 0.5 MG TAB PO PRN (04:17)
[2016-11-02] MEDS: CHLORHEXIDINE GLUCONATE 2 % 1 PACK (2 CLOTHS) TOP SCH (04:19)
[2016-11-02] MEDS: INSULIN NovoLIN REGULAR SUPPLEMENTAL SCALE SQ SCH ×2 (04:20→08:53)
[2016-11-02 05:11] VITALS: BP 132/84; PULSE 68; RESP 22; TEMP 96.6; O2SAT 96
[2016-11-02 07:15] VITALS: PULSE 137
[2016-11-02] MEDS: RESP: ALBUTEROL 2.5 MG/IPRATROPIUM 0.5 MG NEB (SCH) NEB (07:53)
[2016-11-02 07:56] VITALS: O2SAT 97
[2016-11-02] MEDS: ASPIRIN 81 MG CHEW TAB CHEW SCH (08:50)
[2016-11-02] MEDS: APIXABAN 5 MG TABLET PO SCH (08:51)
[2016-11-02] MEDS: BUMETANIDE 1 MG TAB PO SCH (08:51)
[2016-11-02 10:23] LABS: BICARBONATE 19.4 MEQ/L (21.0-32.0); MAGNESIUM 2.4 MG/DL (1.5-2.5); POTASSIUM 4.1 MEQ/L (3.5-5.1)
--- NOTE | 2016-11-02 12:40 | HHI.NPPN ---
Subjective Additional Remarks feels better Review of Systems Psych Psych: Anxiety Objective Data Data 11/01/16 11/02/16 19:00 07:00 Intake Total 0 ml Output Total 660 ml Balance -660 ml Intake Oral 0 ml Output Urine Total 660 ml # Voids 2 # Bowel Movements 2 0 Vital Signs Date Time Temp Pulse Resp B/P Pulse Ox O2 Delivery O2 Flow Rate FiO2 11/02/16 07:56 97 21 11/02/16 07:15 137 11/02/16 05:11 96.6 68 22 132/84 96 11/02/16 02:46 80 11/02/16 00:44 97.7 80 20 121/77 95 11/01/16 20:56 96.4 80 24 111/74 96 11/01/16 20:38 98 Nasal Cannula 21 11/01/16 16:01 98.8 80 20 115/68 96 11/01/16 12:41 95.8 18 20 121/72 99 -: 10/29/16 0549 11/02/16 0832 Physical Exam General Appearance: Well Developed, Well Nourished, No Acute Distress Throat Throat Exam: Oral Mucosa [place] & Moist Neck Neck Exam: Neck Supple Pulmonary Resp Exam: Clear Bilaterally Cardiology CV Exam: Regular, Normal Sinus Rhythm Gastrointestinal/Abdomen GI Exam: Soft, Non-Tender, Positive Bowel Movement Integumentary Skin Exam: Dry, Intact Extremeties Extremities Exam: No Edema Neurologic Neuro Exam: Alert, Awake Assessment/Plan Problem List: (1) CKD (chronic kidney disease) stage 3, GFR 30-59 ml/min Plan: Baseline creatinine that has ranged between 1.2 and 1.4 over the last year corresponding to a GFR in the 40s. CKD likely due to HTN. Creatinine 1.8 -> 2 --> 1.99 --> 1.97 today. PREMA potentially due to contrast exposure from embolectomy procedure for CVA. Underlying history of CHF with a 20% EF. Continue on bumex 1mg PO BID for now Renal function relatively stable, OK to dc to rehab from Nephrology point of view (2) Acute CVA (cerebrovascular accident) Plan: Left MCA ischemic stroke with embolectomy done by interventional radiology. The patient was exposed to contrast at that time. At this point, her symptoms appear stable. Continue to monitor (3) Congestive heart failure Plan: History of 20% ejection fraction and does have an ICD in place. Continue diuresis with Bumex as ordered. (4) Atrial flutter Plan: s/p cardioversion last month, stable (5) DM2 (diabetes mellitus, type 2) Plan: monitor glucose (6) HTN (hypertension) Plan: BP stable Problem Qualifiers (1) Congestive heart failure: Qualified Code: I50.9 - Congestive heart failure, unspecified congestive heart failure chronicity, unspecified congestive heart failure type (2) Atrial flutter: Qualified Code: I48.92 - Atrial flutter, unspecified type (3) DM2 (diabetes mellitus, type 2): Qualified Code: E11.22 - Type 2 diabetes mellitus with diabetic chronic kidney disease, unspecified CKD stage, unspecified halfway insulin use status (4) HTN (hypertension): Qualified Code: I10 - Essential hypertension Thad Quiroz MD Nov 02, 2016 12:40 Thad Quiroz MD Nov 02, 2016 12:40
[2016-11-02 12:57] VITALS: BP 119/71; PULSE 73; RESP 18; TEMP 98.7
[2016-11-02] MEDS ORDERED: METF500T PO (13:14)
[2016-11-02] MEDS ORDERED: LORA-392 PO (13:14)
[2016-11-02] MEDS ORDERED: NOVORP2 SQ (13:14)
[2016-11-02] MEDS ORDERED: IPRASOL INH (13:14)
[2016-11-02] MEDS ORDERED: ACET500T3 PO (13:14)
--- NOTE | 2016-11-02 13:29 | HHI.DS ---
Discharge Summary Admission Date Oct 25, 2016 at 13:01 Discharge Date: Nov 02, 2016 Admitting Diagnosis CVA (1) Acute CVA (cerebrovascular accident) Diagnosis: Principal (2) COPD (chronic obstructive pulmonary disease) Diagnosis: Principal (3) DM2 (diabetes mellitus, type 2) Diagnosis: Secondary (4) HTN (hypertension) Diagnosis: Secondary (5) Congestive heart failure Diagnosis: Secondary (6) Atrial flutter Diagnosis: Secondary (7) CAD (coronary artery disease) Diagnosis: Secondary (8) CKD (chronic kidney disease) stage 3, GFR 30-59 ml/min Diagnosis: Secondary Consultants Dr. Tip Mendoza, Cardiology Dr. Thad Quiroz, Nephrology Dr. Nida Orellana, Neurology Dr. Gabriela Tobin, PMR Brief History The patient is a 70-year-old female with multiple medical co-morbidities which include hypertension, coronary artery disease, cardiomyopathy with an EF of 20-25% from the echo dated November 2015, atrial flutter, hyperlipidemia and diabetes mellitus. The patient presented to [facility] ED with altered mental status and was unable to move her right side or speak. Her friend called 911 and she was brought in by EMS as a Stroke Alert. She was last seen normal at 6:45 this morning. She was found to have right-sided weakness and a fixed gaze to the left. Her initial CT scan of the brain was negative for acute disease. The patient had a CTA of the head which showed embolus to the right ICA. She was taken to the interventional radiology suite where she underwent angiogram and was found to have a large clot at the ICA, M1 segment, status post embolectomy with rastafari of antegrade flow. During the procedure she was given a heparin bolus. The patient had a blood pressure of 110/72 on arrival. She takes Eliquis 5 mg b.i.d. at home. The patient was seen by Dr. Juan and plan to repeat CT scan of the brain in 24 hours. Most of the history was taken from reviewing the medical records as the patient is CBC/BMP: 10/29/16 0549 11/02/16 0832 Significant Findings Laboratory Tests Test 10/31/16 11/01/16 11/02/16 09:22 06:34 08:32 Sodium Level 134 MEQ/L 135 MEQ/L (136-145) (136-145) Blood Urea Nitrogen 48 MG/DL (7-18) 46 MG/DL (7-18) 46 MG/DL (7-18) Creatinine 2.09 MG/DL 1.99 MG/DL 1.97 MG/DL (0.50-1.00) (0.50-1.00) (0.50-1.00) Estimat Glomerular Filtration 28 ML/MIN (>89) 30 ML/MIN (>89) 30 ML/MIN (>89) Rate Random Glucose 138 MG/DL 140 MG/DL (74-106) (74-106) Carbon Dioxide Level 19.4 MEQ/L (21.0-32.0) Anion Gap 18 MEQ/L (5-15) PE at Discharge GENERAL: This is a well-nourished, well-developed patient, in no apparent distress. CARDIOVASCULAR: Regular rate and rhythm without murmurs, gallops, or rubs. RESPIRATORY: Clear to auscultation. Breath sounds equal bilaterally. No wheezes , rales, or rhonchi. GASTROINTESTINAL: Abdomen soft, non-tender, nondistended. Normal active bowel sounds MUSCULOSKELETAL: Extremities without clubbing, cyanosis, or edema. NEURO: Alert & Oriented x3, but confused at times, mild RUE weakness Transfer Summary The patient is a 70-year-old female with multiple medical co-morbidities which include hypertension, coronary artery disease, cardiomyopathy with an EF of 20- 25% from the echo dated November 2015, atrial flutter, hyperlipidemia and diabetes mellitus. The patient presented to [facility] ED with altered mental status and was unable to move her right side or speak. Her friend called 911 and she was brought in by EMS as a Stroke Alert. She was last seen normal at 6:45 this morning. She was found to have right-sided weakness and a fixed gaze to the left. Her initial CT scan of the brain was negative for acute disease. The patient had a CTA of the head which showed embolus to the right ICA. She was taken to the interventional radiology suite where she underwent angiogram and was found to have a large clot at the ICA, M1 segment, status post embolectomy with rastafari of antegrade flow. During the procedure she was given a heparin bolus. The patient had a blood pressure of 110/72 on arrival. She takes Eliquis 5 mg b.i.d. at home. The patient was seen by Dr. Juan and plan to repeat CT scan of the brain in 24 hours. Most of the history was taken from reviewing the medical records as the patient is nonverbal. 10/26 No acute events overnight. Patient is more awake today. For repeat CT brain. 10/27: Resting in bed comfortably. Moves all 4 extremities though feels some weakness on the right upper extremity and numbness in the right lower extremity. Denied any headache. Head CT done yesterday was negative for any bleeding. Neurology okayed resuming anticoagulation with Eliquis. Hospital Course (1) Acute CVA (cerebrovascular accident) Status: Acute Plan: - Mrs. Salinsa was recently admitted from 10/12/16-10/17/16 for SOB/weakness and was found to have elevated troponin and A. flutter. She underwent A. flutter ablation/ cardioversion on 10/15/16. - Pt was discharged on Eliquis 5mg po BID and Plavix 75mg po daily at that admission. - She presented back to the ED on 10/25/16 with altered mental status and was unable to move her right side or speak. She was found to have right-sided weakness and a fixed gaze to the left. - Her initial CT scan of the brain was negative for acute disease. - CTA of the head which showed embolus to the right ICA. - She was taken to the interventional radiology suite where she underwent angiogram and was found to have a large clot at the ICA, M1 segment, s/p embolectomy with rastafari of antegrade flow. - During the procedure she was given a heparin bolus. - She was admitted to the ICU with Neurology following. - Repeat Head CT (10/26/16) --> No evidence of acute cortical infarction. Subtle hypodensity in left basal ganglia may reflect edema or infarct. - Pt has been improving clinically. She is able to verbalize well and the movement/strength of right UE and LE is improving. - Neurology cleared the pt to resume Eliquis and has recommended ASA. Pt had been on Plavix previously. - Cont. PT/OT -plan for snf next week. -mild bhavana..could be volume or contrast...requires some oxygen for hypoxia...resumed diuretic. - [facility] for continued rehabilitation & physical therapy (2) COPD (chronic obstructive pulmonary disease) Status: Chronic Plan: - prn duonebs (3) DM2 (diabetes mellitus, type 2) Status: Chronic Plan: - NovoLog SSI - upon discharge resume metformin at 250mg BID (4) HTN (hypertension) Status: Chronic Plan: - Home meds have been held. - BP has been low/normal (5) Congestive heart failure Status: Chronic Plan: - Pt with chronic systolic CHF/cardiomyopathy with EF 20-25% s/p AICD - Bumex 1mg po BID was resumed on 10/27 - will be challenging to balance diuretic d/t CHF with renal function (6) Atrial flutter Status: Resolved Plan: - Pt with hx of atrial flutter s/p A. flutter ablation/cardioversion on 10/15/16 (7) CAD (coronary artery disease) - continue current medications (8) CKD (chronic kidney disease) stage 3, GFR 30-59 ml/min Status: Chronic - see above Pt Condition on Discharge: Stable Discharge Disposition: Rehab Inpatient Discharge Instructions DIET: Follow Instructions for: Heart Healthy Diet, Diabetic Diet Speech Therapy-Diet Recommends: Soft Activities you can perform: Weight Bearing as Cuauhtemoc Follow up Referrals: Cardiology - [address] Tip Mendoza Nephrology - [address] Thad Quiroz Neurology - [address] Orellana PCP Follow-up - [address] Krupa Zamorano f/u with PCP, Dr. Krupa Zamorano, 1 week after discharge from Rehab New Medications: Acetaminophen (Acetaminophen) 500 Mg Tab 1000 MG PO Q6H PRN PAIN SCALE 1 TO 10 Days 28 TAB Insulin Human Regular Inj (Novolin R Inj) 1,000 Unit/10 Ml Vial 1 UNIT SQ Q6H dm2 Days 30 INJECTION Ipratropium-Albuterol Neb (Duoneb) 0.5-2.5 Mg/3 Ml Neb 1 AMPULE INH Q6HR PRN WHEEZING Days 30 ML Lorazepam (Ativan) 0.5 Mg Tab 0.5 MG PO Q6H PRN agitation Days 5 Ref 0 TAB ([Aspirin Chew]) 81 MG CHEW 81 MG CHEW DAILY cva Days 30 TAB.CHEW Changed Medications: Metformin (Metformin) 500 Mg Tab 250 MG PO BID With meals Blood Sugar Management #60 Ref 0 TAB (Changed from: 500 MG) Continued Medications: Apixaban (Eliquis) 5 Mg Tab 5 MG PO BID Blood Clot Prevention #60 Ref 0 TAB Bumetanide (Bumetanide) 1 Mg Tab 1 MG PO BID #60 Ref 0 TAB Multiple Vitamin (Multi Vitamin) 1 Tab Tab 1 TAB PO DAILY TAB Simvastatin (Zocor) 40 Mg Tab 40 MG PO DAILY Cholesterol Management #30 Ref 0 TAB Temazepam (Restoril) 30 Mg Cap 30 MG PO HS PRN INSOMNIA #30 Ref 0 CAP Discontinued Medications: Amiodarone (Amiodarone) 200 Mg Tab 200 MG PO DAILY Regulate Heart Beat #30 Ref 0 TAB Ascorbic Acid (Vitamin C) 500 Mg Tab 500 MG PO DAILY Nutritional Supplement Ref 0 TAB Carvedilol (Coreg) 6.25 Mg Tab 6.25 MG PO BID #60 Ref 0 TAB Clopidogrel (Plavix) 75 Mg Tab 75 MG PO DAILY Blood Clot Prevention #30 Ref 0 TAB Digoxin (Lanoxin) 0.125 Mg Tab 0.125 MG PO DAILY Regulate Heart Beat #30 Ref 0 TAB Ferrous Sulfate (Iron) 325 Mg Tab 325 MG PO DAILY Take Nutritional Supplement Ref 0 TAB Glipizide (Glipizide) 5 Mg Tab 5 MG PO BID Take 30 minutes before a meal Blood Sugar Management #60 Ref 0 TAB Losartan (Losartan) 25 Mg Tab 25 MG PO DAILY Blood Pressure Management #30 Ref 0 TAB Tizanidine (Tizanidine) 4 Mg Cap 4 MG PO BID PRN MUSCLE SPASM Ref 0 CAP Yo Suarez DO Nov 02, 2016 13:29
[2016-11-02] MEDS ORDERED: Aspirin Chew CHEW (13:38)
[2016-11-02] MEDS ORDERED: SOD PHOSPHATE/SOD BIPHOSPHATE (ADULT) ENEMA 133ML PR PRN (14:00)
--- NOTE | 2016-11-02 16:38 | HHI.PR ---
Subjective Subjective Comments Patient awake and alert. Family at bedside. Patient denies any pain. No shortness of breath noted. Allergies: Coded Allergies: No Known Allergies (Unverified , 11/02/16) Per daughter, patient is not allergic to aspirin and has no allergies. Review of Systems All other ROS: ROS reviewed as documented in chart Exam I&O / VS 11/01/16 11/01/16 11/02/16 15:00 23:00 07:00 Intake Total 0 ml Output Total 660 ml Balance -660 ml Intake Oral 0 ml Output Urine Total 660 ml # Voids 2 # Bowel Movements 2 0 Vital Signs Date Time Temp Pulse Resp B/P Pulse Ox O2 Delivery O2 Flow Rate FiO2 11/02/16 12:57 98.7 73 18 119/71 11/02/16 07:56 97 21 11/02/16 07:15 137 11/02/16 05:11 96.6 68 22 132/84 96 11/02/16 02:46 80 11/02/16 00:44 97.7 80 20 121/77 95 11/01/16 20:56 96.4 80 24 111/74 96 11/01/16 20:38 98 Nasal Cannula 21 General: No acute distress Skin: Other (No rash noted) Musculoskeletal: ROM (within normal limits) Psychiatric: Cooperative, Appropriate mood & affect Orientation: oriented to Self, oriented to Place, oriented to Situation, disoriented to Time Neurologic: EOM (Track right and left), Speech (Decreased fluency) Motor: Right Upper Extremity (4/5), Left Upper Extremity (4+/5), Right Lower Extremity (4-/5), Left Lower Extremity (4+/5) Sensory Present but impaired in right UE and LE Objective Micro and Labs Laboratory Tests Test 11/02/16 08:32 Sodium Level 135 Potassium Level 4.1 Chloride Level 98 Carbon Dioxide Level 19.4 Anion Gap 18 Blood Urea Nitrogen 46 Creatinine 1.97 Estimat Glomerular Filtration 30 Rate Random Glucose 93 Calcium Level 9.5 Magnesium Level 2.4 Assessment and Plan Diagnosis: (1) Acute CVA (cerebrovascular accident) Assessment 1. Left ICA embolism status post embolectomy with left basal ganglia ischemic infarct 2. Right hemiparesis 3. Aphasia 4. Impaired mobility and ADLs 5. Atrial flutter status post ablation 6. COPD 7. Diabetes mellitus type 2 8. Hypertension 9. Chronic systolic CHF/cardiomyopathy 10. CAD 11. Chronic kidney disease Plan 1. Speech therapy is evaluated swallow and tolerating soft diet. Moderate communication/cognitive deficits are being addressed 2. Progressing with mobility and now contact guard for transfers and ambulate with a rolling walker 55 feet with contact guard 3. Occupational therapy addressing ADLs now minimal assistance for upper body dressing and max for LE dressing 4. Monitor carefully for falls 5. Patient will need ongoing rehabilitation at discharge and case management has arranged 6. Will continue to follow while hospitalized and at discharge Gabriela iPnon MD Nov 02, 2016 16:38
[2016-11-08] MEDS ORDERED: TRANSPORT CHAIR1 MIS (12:46)
[2016-11-08] MEDS ORDERED: COMMODE 3-IN-11 MIS (12:46)
[2016-11-10] MEDS ORDERED: TEMA7.5C9 PO (08:13)
[2016-11-10] MEDS ORDERED: ZOCO40TA PO (08:13)
[2016-11-10] MEDS ORDERED: Spironolactone PO (08:13)
[2016-11-10] MEDS ORDERED: Aspirin Chew CHEW (08:13)
[2016-11-10] MEDS ORDERED: APIX5TAB PO (08:13)
[2016-11-10] MEDS ORDERED: MULT-135 PO (08:13)
[2016-11-10] MEDS ORDERED: METF500T PO (08:13)
[2016-11-10] MEDS ORDERED: BUME1TAB PO (08:13)
== END 2016-11-02 15:00 | DRG 23 ==
LOC: NEPC 11:20 → NEDA 13:01 → HIMN 14:05 → N05A 10-27 22:33
PROVIDERS: ADMIT Hospitalist; ATTEND Hospitalist
PROC: 03CG3ZZ Extirpation of Matter from Intracranial Artery, Percutaneous Approach (ICD-10-PCS; principal; 2016-10-25)
PROC: 03CL3ZZ Extirpation of Matter from Left Internal Carotid Artery, Percutaneous Approach (ICD-10-PCS; 2016-10-25)
DX: I63.412 Cerebral infarction due to embolism of left middle cerebral artery (principal); I63.132 Cerebral infarction due to embolism of left carotid artery; N17.9 Acute kidney failure, unspecified; E11.22 Type 2 diabetes mellitus with diabetic chronic kidney disease; G81.01 Flaccid hemiplegia affecting right dominant side; I50.22 Chronic systolic (congestive) heart failure; I13.0 Hypertensive heart and chronic kidney disease with heart failure and stage 1 through stage 4 chronic kidney disease, or unspecified chronic kidney disease; I48.92 Unspecified atrial flutter; J44.9 Chronic obstructive pulmonary disease, unspecified; R47.01 Aphasia; I25.5 Ischemic cardiomyopathy; J45.909 Unspecified asthma, uncomplicated; I25.10 Atherosclerotic heart disease of native coronary artery without angina pectoris; R09.02 Hypoxemia; R74.8 Abnormal levels of other serum enzymes; E78.5 Hyperlipidemia, unspecified; Z79.01 Long term (current) use of anticoagulants; Z79.84 Long term (current) use of oral hypoglycemic drugs; Z95.810 Presence of automatic (implantable) cardiac defibrillator; N18.3 Chronic kidney disease, stage 3 (moderate)
CPT/HCPCS: 36600; 61645; 70450; 70496; 70498; 71010; 76937; 80048; 80053; 80061; 80307; 81001; 82435; 82550; 82565; 82805; 82947; 82948; 83735; 84100; 84132; 84295; 84484; 84520; 84702; 85025; 85384; 85610; 85730; 86850; 86900; 86901; 87641; 93005; 93306; 94640; 94664; 96374; 96375; 99152; 99153; 99211; C1760; C1769; C1887; C1894; G0463; J1644; J1940; J1956; J2250; J2405; J3010; P9612; Q9967

== ENCOUNTER 2016-11-11 12:24 | Inpatient (IN) | payer MEDICARE ==
[~2016-11-11] VITALS: Ht 167.6 cm; Wt 56.8 kg
[~2016-11-11 12:24] MED LIST changes: -AMIO200T PO; +Aspirin Chew CHEW; -CARV6.25 PO; +COMMODE 3-IN-11 MIS; -FERR1TAB36 PO; -GLIP5TAB8 PO; -LANO0.1212 PO; -LOSA25TA PO; -PLAV75TA29 PO; -REST30CA PO; +Spironolactone PO; +TEMA7.5C9 PO; -TIZA4CAP3 PO; +TRANSPORT CHAIR1 MIS; -VITA500T PO
[2016-11-11 12:35] VITALS: BP 118/70; PULSE 90; RESP 17; TEMP 98.2; O2SAT 98
[2016-11-11 14:18] VITALS: O2SAT 97
--- NOTE | 2016-11-11 14:28 | PD ---
HPI Chief Complaint: General Weakness Time Seen by Provider: 14:24 Travel History International Travel<30 days: No Contact w/Intl Traveler<30days: No Traveled to known affect area: No History of Present Illness HPI 70-year-old female with a history of recent CVA 2 weeks ago, on Eliquis, CHF, chronic kidney disease that presents to the ED for evaluation of weakness and lethargy since today as well as blood in the stool. Patient is not a good historian. Per family they noticed that she's been more lethargic than usual. Patient was just discharged from the rehabilitation facility yesterday. Patient as well as family do not that she's been complaining of some bleeding from her rectum. Per family and patient apparently this was made aware to the rehabilitation facility but unsure if anything was done as I cannot find any documentation about this. Patient states that she feels a weird sensation on her left chest which she doesn't really tell me this of chest pain but more like a weird sensation. She really having a hard time describing it to me. She denies any pain of any kind. No abdominal pain. No back pain or neck pain. No fevers chills or sweats. Other than symptoms of upper family she's been acting normal. She has been compliant with the medications prescribed to her. No other medical problems at this time. PFSH Past Medical History Hx Anticoagulant Therapy: Yes Arthritis: No Asthma: Yes Autoimmune Disease: No Blood Disorders: No Anxiety: No Depression: No Heart Rhythm Problems: Yes (aflutter) Cancer: No Cardiovascular Problems: Yes (2014) High Cholesterol: Yes Chemotherapy: No Chest Pain: No Congestive Heart Failure: Yes COPD: Yes Cerebrovascular Accident: Yes (present admission ) Coronary Artery Disease: Yes Diabetes: Yes Diminished Hearing: No Endocrine: Yes Gastrointestinal Disorders: No GERD: No Genitourinary: No Hiatal Hernia: No Immune Disorder: No Implanted Vascular Access Dvce: Yes Kidney Stones: No Musculoskeletal: No Neurologic: No Psychiatric: No Reproductive: Yes (bleeding- hysterectomy done ) Respiratory: Yes Immunizations Current: Yes Migraines: No Radiation Therapy: No Renal Failure: No Seizures: No Sickle Cell Disease: No Sleep Apnea: No Thyroid Disease: No Ulcer: No ?: Not Past Surgical History Abdominal Surgery: Yes (cholecystectomy) AICD: Yes Appendectomy: Yes Arteriovenous Shunt: No Cardiac Surgery: Yes (DEFIBRILLATOR) Cholecystectomy: Yes Ear Surgery: No Endocrine Surgery: No Eye Surgery: No Genitourinary Surgery: Yes (hysterectomy) Gynecologic Surgery: Yes (FLORINDA) Hysterectomy: Yes Insulin Pump: No Joint Replacement: No Oral Surgery: Yes (teeth pulled for dentures. upper full lower partial ) Pacemaker: Yes Thoracic Surgery: No Other Surgery: Yes Social History Alcohol Use: No Tobacco Use: No Substance Use: No Allergies-Medications (Allergen,Severity, Reaction): Coded Allergies: No Known Allergies (Unverified , 11/02/16) Per daughter, patient is not allergic to aspirin and has no allergies. Reported Meds & Prescriptions Reported Meds & Active Scripts Active [Spironolactone] 25 MG Tab 25 Mg PO DAILY Bumetanide 1 Mg Tab 2 Mg PO BID@06,14 Restoril (Temazepam) 7.5 Mg Cap 7.5 Mg PO HS PRN [Aspirin Chew] 81 MG Chew 81 Mg CHEW DAILY Metformin (Metformin HCl) 500 Mg Tab 250 Mg PO BID With meals Zocor (Simvastatin) 40 Mg Tab 40 Mg PO DAILY Multi Vitamin (Multiple Vitamin) 1 Tab Tab 1 Tab PO DAILY Eliquis (Apixaban) 5 Mg Tab 5 Mg PO BID Transport Chair Ultra Lig (Device) 1 Mis Mis 1 Ea .ROUTE DIRECTED Commode 3-in-1 (Device) 1 Mis Mis 1 Ea .ROUTE DIRECTED Review of Systems Except as stated in HPI: all other systems reviewed are Neg Physical Exam Narrative GENERAL: SKIN: Warm and dry. HEAD: Atraumatic. Normocephalic. EYES: Pupils equal and round 4 mm reactive to light accommodation. No scleral icterus. No injection or drainage. ENT: No nasal bleeding or discharge. Mucous membranes pink and moist. Tongue is midline. No uvula deviation. NECK: Trachea midline. No JVD. CARDIOVASCULAR: Regular rate and rhythm. No murmurs, S3, S4. RESPIRATORY: No accessory muscle use. Clear to auscultation. Breath sounds equal bilaterally. GASTROINTESTINAL: Abdomen soft, non-tender, nondistended. Hepatic and splenic margins not palpable. Rectal exam: The with female nurse present. Patient does have some old hemorrhoids in the rectum but there is some blood noted in the stool as well as his positive Hemoccult. MUSCULOSKELETAL: Extremities without clubbing, cyanosis, or edema. No obvious deformities. Full range of motion of the upper and lower extremities bilaterally. 2+ pulses bilaterally. NEUROLOGICAL: Awake and alert. No obvious cranial nerve deficits. Motor grossly within normal limits. Five out of 5 muscle strength in the arms and legs. Normal speech. PSYCHIATRIC: Appropriate mood and affect; insight and judgment normal. Data Data Last Documented VS Vital Signs Date Time Temp Pulse Resp B/P Pulse Ox O2 Delivery O2 Flow Rate FiO2 11/11/16 14:18 97 Room Air 11/11/16 12:35 98.2 90 17 118/70 Orders Electrocardiogram (11/11/16 14:03) Complete Blood Count With Diff (11/11/16 14:03) Comprehensive Metabolic Panel (11/11/16 14:03) Ckmb (Isoenzyme) Profile (11/11/16 14:03) Troponin I (11/11/16 14:03) B-Type Natriuretic Peptide (11/11/16 14:03) Prothrombin Time / Inr (Pt) (11/11/16 14:03) Act Partial Throm Time (Ptt) (11/11/16 14:03) Lipase (11/11/16 14:03) Urinalysis - C+S If Indicated (11/11/16 14:03) Thyroid Stimulating Hormone (11/11/16 14:03) Chest, Single Ap (11/11/16 14:03) Ct Brain W/O Iv Contrast(Rout) (11/11/16 14:03) Iv Access Insert/Monitor (11/11/16 14:03) Ecg Monitoring (11/11/16 14:03) Oximetry (11/11/16 14:03) Type And Screen (11/11/16 14:03) Admit Order (Ed Use Only) (11/11/16 15:42) Labs Laboratory Tests Test 11/11/16 11/11/16 14:10 14:35 White Blood Count 5.3 TH/MM3 Red Blood Count 4.42 MIL/MM3 Hemoglobin 13.3 GM/DL Hematocrit 40.6 % Mean Corpuscular Volume 91.8 FL Mean Corpuscular Hemoglobin 30.0 PG Mean Corpuscular Hemoglobin 32.7 % Concent Red Cell Distribution Width 22.1 % Platelet Count 262 TH/MM3 Mean Platelet Volume 8.4 FL Neutrophils (%) (Auto) 55.8 % Lymphocytes (%) (Auto) 29.8 % Monocytes (%) (Auto) 11.4 % Eosinophils (%) (Auto) 1.8 % Basophils (%) (Auto) 1.2 % Neutrophils # (Auto) 3.0 TH/MM3 Lymphocytes # (Auto) 1.6 TH/MM3 Monocytes # (Auto) 0.6 TH/MM3 Eosinophils # (Auto) 0.1 TH/MM3 Basophils # (Auto) 0.1 TH/MM3 CBC Comment DIFF FINAL Differential Comment Prothrombin Time 14.2 SEC Prothromb Time International 1.3 RATIO Ratio Activated Partial 28.0 SEC Thromboplast Time Sodium Level 135 MEQ/L Potassium Level 4.3 MEQ/L Chloride Level 101 MEQ/L Carbon Dioxide Level 26.3 MEQ/L Anion Gap 8 MEQ/L Blood Urea Nitrogen 34 MG/DL Creatinine 1.56 MG/DL Estimat Glomerular Filtration 40 ML/MIN Rate Random Glucose 134 MG/DL Calcium Level 9.5 MG/DL Total Bilirubin 0.8 MG/DL Aspartate Amino Transf 35 U/L (AST/SGOT) Alanine Aminotransferase 56 U/L (ALT/SGPT) Alkaline Phosphatase 106 U/L Total Creatine Kinase 84 U/L Troponin I 0.77 NG/ML B-Type Natriuretic Peptide 1296 PG/ML Total Protein 8.2 GM/DL Albumin 3.6 GM/DL Lipase 162 U/L Thyroid Stimulating Hormone 5.620 uIU/ML 3rd Gen Blood Type AB POSITIVE Antibody Screen NEGATIVE MDM Medical Decision Making Medical Screen Exam Complete: Yes Emergency Medical Condition: Yes Medical Record Reviewed: Yes Interpretation(s) CBC & BMP Diagram 11/11/16 14:10 troponin elevated Last Impressions Head CT 11/11/16 1403 Signed Impressions: Service Date/Time: October 14:44 - CONCLUSION: Evolving left basal ganglia infarction. Cade Hernandes MD Chest x-ray shows stable cardiomegaly EKG showed paced rhythm with no sign of acute ischemia or arrhythmia read by me and attending. BNP and a 1200s CK-MB within normal limits. LFTs within normal limits. Differential Diagnosis GI bleed versus anemia versus CVA versus coronary disease versus COPD versus G versus weakness Narrative Course 70-year-old female that presents to the ED for evaluation of weakness as well as GI bleed. Patient was properly examined and was found to have signs and symptoms of unclear etiology at this time. Patient was just released from the hospital yesterday. Per patient and they will made the blood aware to the facility but unclear as there is no documentation about this that I can find. At this time I recommend labs and imaging. Hemoccult here was positive. Labs and imaging came back with positive troponin, elevated BNP, chronic kidney disease as well as cardiomegaly and an evolving CVA. Case was discussed in my attending Dr. labs were evaluated the patient with me and recommends admission secondary to GI bleed and taking the blood thinner as well as the nonspecific chest pain with positive troponin. At this time I do believe that the troponin is likely high secondary to her chronic CHF. Case was discussed with Dr. Jenkins who agrees to see the patient. Procedures EKG Prior to Arrival: No HemaPrompt Point of Care Internal Pos. & Neg. Controls: Passed Fecal Specimen Occult Blood: Positive Diagnosis Primary Impression: Chest pain Qualified Code: R07.9 - Chest pain, unspecified type Additional Impressions: GI bleed Qualified Code: K92.2 - Gastrointestinal hemorrhage, unspecified gastrointestinal hemorrhage type Elevated troponin Congestive heart failure Qualified Code: I50.9 - Acute on chronic congestive heart failure, unspecified congestive heart failure type Admitting Information Admitting Physician Requests: Admit Uzair Hawley Nov 11, 2016 14:28
[2016-11-11 14:32] LABS: BASOPHIL # 0.1 TH/MM3 (0-0.2); BASOPHIL % 1.2 % (0.0-2.0); EOSINOPHIL # 0.1 TH/MM3 (0-0.4); EOSINOPHIL % 1.8 % (0.0-4.0); HEMATOCRIT 40.6 % (35.0-46.0); HEMO FLAGS DIFF FINAL; LYMPH % 29.8 % (9.0-44.0); LYMPHOCYTE # 1.6 TH/MM3 (1.0-4.8); MEAN CELL VOLUME 91.8 FL (80.0-100.0); MEAN CORPUSCULAR HGB CONC 32.7 % (32.0-36.0); MONO % 11.4 % (0.0-8.0); NEUT % 55.8 % (16.0-70.0); PLATELET COUNT 262 TH/MM3 (150-450); RED BLOOD COUNT 4.42 MIL/MM3 (4.00-5.30); RED CELL DISTRIBUTION WIDTH 22.1 % (11.6-17.2); WHITE BLOOD COUNT 5.3 TH/MM3 (4.0-11.0)
[2016-11-11 14:46] LABS: INTERNATIONAL NORMALIZED RATIO 1.3 RATIO; PROTHROMBIN TIME - PATIENT 14.2 SEC (9.8-11.6)
[2016-11-11 15:04] LABS: ALKALINE PHOSPHATASE 106 U/L (45-117); ALT (GPT) 56 U/L (10-53); ANION GAP 8 MEQ/L (5-15); AST (GOT) 35 U/L (15-37); BICARBONATE 26.3 MEQ/L (21.0-32.0); BLOOD UREA NITROGEN 34 MG/DL (7-18); CHLORIDE 101 MEQ/L (98-107); GLOMERULAR FILTRATION RATE 40 ML/MIN (>89); SODIUM (NA) 135 MEQ/L (136-145); TOTAL BILIRUBIN ADULT 0.8 MG/DL (0.2-1.0)
[2016-11-11 15:06] LABS: CREATINE KINASE 84 U/L (26-192); POTASSIUM 4.3 MEQ/L (3.5-5.1)
--- NOTE | 2016-11-11 15:07 | RADRPT ---
EXAM DATE/TIME: 11/11/2016 14:44 [facility] COMPARISON: CT BRAIN W/O CONTRAST, October 25, 2016, 11:33. CT BRAIN W/O CONTRAST, October 26, 2016, 13:02. INDICATIONS : Right side weakness with slurred speech starting this morning. RADIATION DOSE: 56.37 CTDIvol (mGy) MEDICAL HISTORY : Cerebrovascular disease. Cardiovascular disease Hypertension.Diabetes SURGICAL HISTORY : Cholecystectomy. Hysterectomy. ENCOUNTER: Initial ACUITY: 1 day PAIN SCALE: 0/10 LOCATION: cranial TECHNIQUE: Multiple contiguous axial images were obtained of the head. Using automated exposure control and adj ustment of the mA and/or kV according to patient size, radiation dose was kept as low as reasonably a chievable to obtain optimal diagnostic quality images. FINDINGS: There is evolving area of infarction in the left basal ganglia without any hemorrhage or mass ef fect. The dystrophic calcification on the left side in the parietal lobe is again seen not changed. T he rest of the examination is unremarkable. CONCLUSION: Evolving left basal ganglia infarction. Cade Hernandes MD on November 11, 2016 at 15:01 Board Certified Radiologist. This report was verified electronically.
--- NOTE | 2016-11-11 15:28 | RADRPT ---
EXAM DATE/TIME: 11/11/2016 14:26 [facility] COMPARISON: CHEST SINGLE AP, November 03, 2016, 8:12. INDICATIONS : Vibration feeling in her chest. MEDICAL HISTORY : Myocardial infarction. SURGICAL HISTORY : Coronary artery stent. Pacemaker. ENCOUNTER: Initial ACUITY: 2 days PAIN SCORE: 8/10 LOCATION: Bilateral chest FINDINGS: The heart remains enlarged with prominence of the left atrial appendage suggesting left atrial enlarg ement. The left subclavian dual-lead pacemaker has its tips in the right atrium and right ventricle. The pulmonary vascular pattern is normal. The lungs are clear. No pneumothorax is noted. CONCLUSION: 1. Persistent cardiomegaly with prominence of the left atrial appendage suggesting left atrial enlarg ement. 2. No acute focal pulmonary infiltrate or pulmonary vascular congestion. Javier Hickey MD on November 11, 2016 at 15:23 Board Certified Radiologist. This report was verified electronically.
--- NOTE | 2016-11-11 16:22 | HHI.HP ---
HPI Service [facility] Hospitalists Primary Care Physician No Primary Care Physician Admission Diagnosis chest pain, positive troponin, recent CVA, GI bleed Chief Complaint: AMS Travel History International Travel<30 Days: No Contact w/Intl Traveler <30 Da: No Traveled to Known Affected Are: No History of Present Illness Ms. Salinas is a 70 y/o AAF with recent history of CVA and underwent angiogram and was found to have a large clot at the ICA, M1 segment, s/p embolectomy with yazidi of antegrade flow on 10/25/16, hypertension, coronary artery disease, CKD stage 3, cardiomyopathy with an EF of 20-25%, atrial flutter s/p ablation in 09/2016, COPD, hyperlipidemia and diabetes mellitus. She presented to the ED at [facility] on 11/11/16 with reported weakness and lethargy as well as blood in the stool. The pt was just discharged on 11/10/16 from [facility] after her recent hospitalization from her acute CVA. Per the pts family they noticed that she's been more lethargic today. Patient reports that she was seen by [facility] nursing today who thought that she was more lethargic and this prompted her to be sent to the ED. She reported complaining of some bleeding from her rectum which began while she was in rehab. The pt has not been having any abdominal pain, nausea/vomiting, fevers or chills. Pts H/H was stable at admission with Hgb 13. She had some vague complaint of a "weird feeling" in her chest to the ED physician. She denies any chest pain currently. Her troponin was noted to be elevated but the pts troponin is consistently elevated and is actually lower than her previous reading on 10/26/16. She has CHF with EF of 20-25%. Pts BNP at admission was 1296 which is slightly higher than her BNP of 1140 on 11/07. Pt had a head CT int he ED which noted an evolving left basal ganglia infarction which is likely related to her previous CVA. Pt denies any new headache, SOB, palpitations, nausea/vomiting. Review of Systems ROS Limitations: Poor Historian Constitutional: DENIES: Fever, Chills Respiratory: DENIES: Shortness of breath Cardiovascular: DENIES: Chest pain, Lower Extremity Edema Gastrointestinal: COMPLAINS OF: BRB per rectum, DENIES: Abdominal pain, Nausea , Vomiting Neurologic: COMPLAINS OF: Speech Problems, DENIES: Headache Psychiatric: DENIES: Confusion Past Family Social History Past Medical History Recent CVA s/p s/p embolectomy A. flutter s/p ablation/cardioversion in 09/2016 HTN CAD CKD, stage 3 Cardiomyopathy with EF 20-25% based on 2D echo from 10/25/2016 COPD Hyperlipidemia Diabetes mellitus 2D echo (10/25/16): - EF 20-25%, diffuse hypokinesis - Akinesis and scarring og the inferoposterior myocardium - Moderate mitral regurg - LA mildly dilated - Moderate tricuspid regurg - Systolic pressure mildly to moderately increased, 55mmHg Past Surgical History Cardiac cath/EPS with ablation of A. flutter, right atrial ablation, Biventricular defibrillator reprogramming and cardioversion on 10/15/[address] Velazquez AICD placement Cholecystectomy Hysterectomy Reported Medications Medications the pts was discharged on on 11/10/16: Spironolactone 25 Mg PO DAILY Bumetanide 2 Mg PO BID@06,14 Restoril 7.5 Mg PO HS PRN Aspirin Chew 81 Mg CHEW DAILY Metformin 250 Mg PO BID Zocor 40 Mg PO DAILY Multi Vitamin 1 Tab PO DAILY Eliquis 5 Mg PO BID Allergies: Coded Allergies: No Known Allergies (Unverified , 11/02/16) Per daughter, patient is not allergic to aspirin and has no allergies. Family History Noncontributory Social History No reported alcohol, tobacco or illicit drug use Physical Exam Vital Signs Vital Signs Date Time Temp Pulse Resp B/P Pulse Ox O2 Delivery O2 Flow Rate FiO2 11/11/16 14:18 97 Room Air 11/11/16 14:18 97 11/11/16 12:35 98.2 90 17 118/70 98 Physical Exam GENERAL: This is a well-nourished, well-developed patient, in no apparent distress. HEENT: Atraumatic. Normocephalic. No temporal or scalp tenderness. No scleral icterus. Airway patent. NECK: Trachea midline, supple, nontender. CARDIO: Regular. RESP: CTA bilaterally. ABD: +BS, soft, non-tender, nondistended. EXT: Right sided weakness in the UE and LE but improved compared to previous admission. NEURO: Awake and alert. Motor and sensory grossly within normal limits. Some mild speech difficulties. Laboratory Laboratory Tests Test 11/11/16 11/11/16 14:10 14:35 White Blood Count 5.3 Red Blood Count 4.42 Hemoglobin 13.3 Hematocrit 40.6 Mean Corpuscular Volume 91.8 Mean Corpuscular Hemoglobin 30.0 Mean Corpuscular Hemoglobin 32.7 Concent Red Cell Distribution Width 22.1 Platelet Count 262 Mean Platelet Volume 8.4 Neutrophils (%) (Auto) 55.8 Lymphocytes (%) (Auto) 29.8 Monocytes (%) (Auto) 11.4 Eosinophils (%) (Auto) 1.8 Basophils (%) (Auto) 1.2 Neutrophils # (Auto) 3.0 Lymphocytes # (Auto) 1.6 Monocytes # (Auto) 0.6 Eosinophils # (Auto) 0.1 Basophils # (Auto) 0.1 CBC Comment DIFF FINAL Differential Comment Prothrombin Time 14.2 Prothromb Time International 1.3 Ratio Activated Partial 28.0 Thromboplast Time Sodium Level 135 Potassium Level 4.3 Chloride Level 101 Carbon Dioxide Level 26.3 Anion Gap 8 Blood Urea Nitrogen 34 Creatinine 1.56 Estimat Glomerular Filtration 40 Rate Random Glucose 134 Calcium Level 9.5 Total Bilirubin 0.8 Aspartate Amino Transf 35 (AST/SGOT) Alanine Aminotransferase 56 (ALT/SGPT) Alkaline Phosphatase 106 Total Creatine Kinase 84 Troponin I 0.77 B-Type Natriuretic Peptide 1296 Total Protein 8.2 Albumin 3.6 Lipase 162 Thyroid Stimulating Hormone 5.620 3rd Gen Blood Type AB POSITIVE Antibody Screen NEGATIVE Result Diagram: 11/11/16 1410 11/11/16 1410 Imaging Last Impressions Head CT 11/11/16 1403 Signed Impressions: Service Date/Time: October 14:44 - CONCLUSION: Evolving left basal ganglia infarction. Cade Hernandes MD Assessment and Plan Problem List: (1) Congestive heart failure Status: Chronic Plan: - She was just hospitalized at [facility] from 10/25/16 to 11/02/16 with an acute CVA s/ p embolectomy on 10/25/16 and was admitted to [facility] from 11/02/16 to 11/10/16. - Pt was brought back to the ED today with some reported AMS and vague chest discomfort and reported bloody stools intermittently. - Head CT noted an evolving left basal ganglia infarction which is likely related to her previous CVA upon review of previous Head CT from 10/26/16 - Her troponin was noted to be elevated at 0.77 but pts troponin is chronically elevated. - She has CHF with EF 20-25% and her BNP is elevated at 1296. Pt had been discharged from rehab on Bumex 2mg po BID and Aldactone 25mg po daily. Pts BP is low/normal but has been stable on the diuretics during her recent rehabilitation stay. - Her Cr is 1.56 at admission with GFR 40 - Resume diuretics and monitor renal function closely - Cont. [place] and ASA - Her H/H is stable. - PT evaluation - DVT prophylaxis with SCDs (2) Hemiparesis affecting dominant side as late effect of cerebrovascular accident (CVA) Status: Chronic Plan: - Cont. PT (3) Dysphagia as late effect of cerebrovascular accident (CVA) Status: Acute Plan: - Pt is on mechanical soft diet with nectar thickened liquids (4) Atrial flutter Status: Resolved Plan: - Pt previously underwent cardiac cath/EPS with ablation of A. flutter, right atrial ablation, Biventricular defibrillator reprogramming and cardioversion on 10/15/[address] Velazquez - Telemetry - Cont. Peggy and ASA (5) DM2 (diabetes mellitus, type 2) Status: Chronic Plan: - Hold OHA - NovoLog SSI - Accu checks (6) CKD (chronic kidney disease) stage 3, GFR 30-59 ml/min Status: Chronic Plan: - Monitor renal function on diuretics (7) HTN (hypertension) Status: Chronic Plan: - BP is low/normal. - Pt is not on any BP medications (8) COPD (chronic obstructive pulmonary disease) Status: Chronic Assessment and Plan Patient examined. Assessment and plan formulated with Christiana Villanueva PA-C. I agree with the above. Pt was recently admitted for aflutter ablation then readmitted for acute cva and embolic event to left mca s/p embolectomy. Pt went to [facility] and did very well. sent home yesterday. Pt says a [facility] nurse showed up and said she was lethargic and sent to ED. ED called over concern of "cp and some blood in stool and elevation of troponin.". Pt denies to me any cp and her troponin always chronically elevated. also hgb is higher than at d/c last time. Pt says she really hasn't been lethargic and is doing well post rehab. Pt sister insisting on more C support and monitoring of her meds. I explained we would call [facility] in AM to see what is available then d/c her home after short observation. Physician Certification 2 Midnight Certification Type: Admission for Inpatient Services Order for Inpatient Services The services are ordered in accordance with Medicare regulations or non- Medicare payer requirements, as applicable. In the case of services not specified as inpatient-only, they are appropriately provided as inpatient services in accordance with the 2-midnight benchmark. Estimated LOS (days): 2 2 days is the estimated time the patient will need to remain in the hospital, assuming treatment plan goals are met and no additional complications. Post-Hospital Plan: Not yet determined Problem Qualifiers (1) Congestive heart failure: Qualified Code: I50.9 - Acute on chronic congestive heart failure, unspecified congestive heart failure type Christiana Villanueva Nov 11, 2016 16:22 Julian Huff MD Nov 11, 2016 20:38
[2016-11-11] MEDS ORDERED: TEMAZEPAM 7.5 MG CAP PO PRN (16:30)
[2016-11-11 18:11] VITALS: BP 108/67; PULSE 85; RESP 18; O2SAT 97
[2016-11-11 19:05] VITALS: BP 118/81; PULSE 85; RESP 18; O2SAT 95
[2016-11-11] MEDS: INSULIN ASPART SUPPLEMENTAL SCALE SQ SCH (20:28)
[2016-11-11 21:00] VITALS: BP_SYST 108; BP_SYST 124; BP_DIAS 65; BP_DIAS 72; PULSE 71; PULSE 79; RESP 16; RESP 18; TEMP 97.1; TEMP 97.4; O2SAT 97; O2SAT 99
[2016-11-11] MEDS: APIXABAN 5 MG TABLET PO SCH (21:58)
[2016-11-11 23:45] VITALS: PULSE 71
[2016-11-12] VITALS: BP 111/69; PULSE 74; RESP 16; TEMP 97.4; O2SAT 99
[2016-11-12] MEDS: INSULIN ASPART SUPPLEMENTAL SCALE SQ SCH ×2 (05:42→11:29)
[2016-11-12] MEDS ORDERED: BUMETANIDE 1 MG TAB PO SCH (06:00)
[2016-11-12 07:21] LABS: AUTOMATED NEUTROPHIL # 3.2 TH/MM3 (1.8-7.7); BASOPHIL # 0.1 TH/MM3 (0-0.2); BASOPHIL % 2.1 % (0.0-2.0); EOSINOPHIL # 0.1 TH/MM3 (0-0.4); EOSINOPHIL % 1.7 % (0.0-4.0); HEMATOCRIT 38.9 % (35.0-46.0); HEMO FLAGS DIFF FINAL; LYMPH % 22.4 % (9.0-44.0); LYMPHOCYTE # 1.2 TH/MM3 (1.0-4.8); MEAN CELL VOLUME 91.8 FL (80.0-100.0); MEAN CORPUSCULAR HEMOGLOBIN 30.9 PG (27.0-34.0); MEAN CORPUSCULAR HGB CONC 33.7 % (32.0-36.0); MONO % 11.8 % (0.0-8.0); PLATELET COUNT 236 TH/MM3 (150-450); RED BLOOD COUNT 4.24 MIL/MM3 (4.00-5.30); RED CELL DISTRIBUTION WIDTH 21.6 % (11.6-17.2); WHITE BLOOD COUNT 5.2 TH/MM3 (4.0-11.0)
[2016-11-12 07:50] LABS: BICARBONATE 23.3 MEQ/L (21.0-32.0); MAGNESIUM 2.2 MG/DL (1.5-2.5); POTASSIUM 3.9 MEQ/L (3.5-5.1)
[2016-11-12 08:00] VITALS: BP 116/78; PULSE 77; RESP 20; TEMP 97.4; O2SAT 95
[2016-11-12] MEDS ORDERED: SPIRONOLACTONE 25 MG TAB PO SCH (09:00)
[2016-11-12] MEDS ORDERED: ASPIRIN 81 MG CHEW TAB CHEW SCH (09:00)
[2016-11-12] MEDS ORDERED: PRAVASTATIN SOD 80 MG TAB PO SCH (09:00)
[2016-11-12] MEDS ORDERED: MULTIVITAMIN TAB PO SCH (09:00)
[2016-11-12] MEDS: APIXABAN 5 MG TABLET PO SCH (09:07)
--- NOTE | 2016-11-12 09:24 | HHI.PR ---
Subjective Remarks pt ambulating on her own when we arrived. walking out of bathroom. denies to me in front of student and family any blood in stool and no cp. she wants to go home Objective Vitals heart reg lung cta abd s/nt ext no edema Vital Signs Date Time Temp Pulse Resp B/P Pulse Ox O2 Delivery O2 Flow Rate FiO2 11/12/16 00:00 97.4 74 16 111/69 99 11/11/16 23:45 71 11/11/16 21:00 97.4 79 16 124/72 97 11/11/16 21:00 97.1 71 18 108/65 99 11/11/16 19:06 95 Room Air 11/11/16 19:05 85 18 118/81 95 Room Air 11/11/16 18:11 85 18 108/67 97 11/11/16 14:18 97 Room Air 11/11/16 14:18 97 11/11/16 12:35 98.2 90 17 118/70 98 11/11/16 11/11/16 11/12/16 15:00 23:00 07:00 Intake Total 120 ml 120 ml Balance 120 ml 120 ml Intake Oral 120 ml 120 ml # Voids 1 3 # Bowel Movements 0 0 Result Diagram: 11/12/16 0620 11/12/16 0620 Imaging Last Impressions Head CT 11/11/16 1403 Signed Impressions: Service Date/Time: October 14:44 - CONCLUSION: Evolving left basal ganglia infarction. Cade Hernandes MD A/P Problem List: (1) Congestive heart failure Status: Chronic Plan: - She was just hospitalized at [facility] from 10/25/16 to 11/02/16 with an acute CVA s/ p embolectomy on 10/25/16 and was admitted to [place] [facility] from 11/02/16 to 11/10/16. - Pt was brought back to the ED today with some reported AMS and vague chest discomfort and reported bloody stools intermittently. - Head CT noted an evolving left basal ganglia infarction which is likely related to her previous CVA upon review of previous Head CT from 10/26/16 - Her troponin was noted to be elevated at 0.77 but pts troponin is chronically elevated. - She has CHF with EF 20-25% and her BNP is elevated at 1296. Pt had been discharged from rehab on Bumex 2mg po BID and Aldactone 25mg po daily. Pts BP is low/normal but has been stable on the diuretics during her recent rehabilitation stay. - Her Cr is 1.56 at admission with GFR 40 - Resume diuretics and monitor renal function closely - Cont. Peggy and ASA - PT evaluation - DVT prophylaxis with SCD She was brought to ED for vague concerns...We were told she c/o cp/blood in stool and was lethargic. Pt denies cp or blood in stool. She has not been lethargic here overnight. She is ambulatory. Her H/H is stable. Her troponin is chronically elevated. She would like to go home. We will call cp to see if she qualifies for any additional [facility] support. (2) Hemiparesis affecting dominant side as late effect of cerebrovascular accident (CVA) Status: Chronic Plan: - Cont. PT (3) Dysphagia as late effect of cerebrovascular accident (CVA) Status: Acute Plan: - Pt is on mechanical soft diet with nectar thickened liquids (4) Atrial flutter Status: Resolved Plan: - Pt previously underwent cardiac cath/EPS with ablation of A. flutter, right atrial ablation, Biventricular defibrillator reprogramming and cardioversion on 10/15/[address] Velazquez - Telemetry - Cont. Peggy and ASA (5) DM2 (diabetes mellitus, type 2) Status: Chronic Plan: - Hold OHA - NovoLog SSI - Accu checks (6) CKD (chronic kidney disease) stage 3, GFR 30-59 ml/min Status: Chronic Plan: - Monitor renal function on diuretics (7) HTN (hypertension) Status: Chronic Plan: - BP is low/normal. - Pt is not on any BP medications (8) COPD (chronic obstructive pulmonary disease) Status: Chronic Problem Qualifiers (1) Congestive heart failure: Qualified Code: I50.9 - Acute on chronic congestive heart failure, unspecified congestive heart failure type Julian Huff MD Nov 12, 2016 09:24
--- NOTE | 2016-11-12 09:26 | HHI.DCPOC ---
Discharge Care Plan Diagnosis: (1) Weakness due to cerebrovascular accident (CVA) (2) Congestive heart failure (3) Atrial flutter (4) HTN (hypertension) (5) CKD (chronic kidney disease) stage 3, GFR 30-59 ml/min (6) DM2 (diabetes mellitus, type 2) (7) Dysphagia as late effect of cerebrovascular accident (CVA) Goals to Promote Your Health * To prevent worsening of your condition and complications * To maintain your health at the optimal level Directions to Meet Your Goals Take your medications as prescribed Follow your dietary instruction Follow activity as directed Keep your appointments as scheduled Take your immunizations and boosters as scheduled If your symptoms worsen call your PCP, if no PCP go to Urgent Care Center or Emergency Room Smoking is Dangerous to Your Health. Avoid second hand smoke Call the 24-hour hour crisis hotline for domestic abuse at Julian Huff MD Nov 12, 2016 09:25
--- NOTE | 2016-11-12 09:27 | HHI.FF ---
Face to Face Verification Diagnosis: (1) Weakness due to cerebrovascular accident (CVA) (2) Dysphagia as late effect of cerebrovascular accident (CVA) Physical Therapy Order: Evaluate and Treat, Improve ambulation Home Health Nursing Order: Medical education Signs/symptoms of disease process Medication education-adverse effect Nursing assessment with vital signs I have seen patient Yamel Salinas on 11/12/16. My clinical findings support the need for the requested home health care services because: Impaired cognition/judgement I certify that my clinical findings support that this patient is homebound because: Unsafe to leave home unassisted Need for psychosocial assistance Julian Huff MD Nov 12, 2016 09:27
--- NOTE | 2016-11-12 19:53 | EKG ---
Date Performed: 11/11/2016 Time Performed: 15:18:16 PTAGE: 70 years EKG: Sinus rhythm with P wave synchronous ventricular pacing ABNORMAL RHYTHM ECG PREVIOUS TRACING : 10/25/2016 20.13 DOCTOR: Maverick Dye Interpretating Date/Time 11/12/2016 19:52:03
== END 2016-11-12 11:57 | disposition home health service (06) | DRG 292 ==
LOC: NEPC 12:24 → OBSVTOIN 15:43 → NEDA 15:43 → INTOOBSV 15:44 → NEDA 15:44 → UNDOADMOB 15:44 → NEDA 20:50 → N04B 20:50 → UNDODISOB 11-12 11:57
PROVIDERS: ADMIT Hospitalist; ATTEND Hospitalist
DX: I13.0 Hypertensive heart and chronic kidney disease with heart failure and stage 1 through stage 4 chronic kidney disease, or unspecified chronic kidney disease (principal); I69.351 Hemiplegia and hemiparesis following cerebral infarction affecting right dominant side; E11.22 Type 2 diabetes mellitus with diabetic chronic kidney disease; I42.9 Cardiomyopathy, unspecified; R13.10 Dysphagia, unspecified; I08.1 Rheumatic disorders of both mitral and tricuspid valves; K92.1 Melena; J44.9 Chronic obstructive pulmonary disease, unspecified; I50.9 Heart failure, unspecified; N18.3 Chronic kidney disease, stage 3 (moderate); I25.10 Atherosclerotic heart disease of native coronary artery without angina pectoris; I69.391 Dysphagia following cerebral infarction; E78.5 Hyperlipidemia, unspecified; R41.82 Altered mental status, unspecified; Z79.84 Long term (current) use of oral hypoglycemic drugs; Z79.02 Long term (current) use of antithrombotics/antiplatelets; Z95.810 Presence of automatic (implantable) cardiac defibrillator
CPT/HCPCS: 70450; 71010; 80048; 80053; 82550; 83690; 83735; 83880; 84443; 84484; 85025; 85610; 85730; 86850; 86900; 86901; 93005; J1815

== ENCOUNTER 2016-11-21 23:41 | Observation (INO) | payer MEDICARE ==
[~2016-11-21] VITALS: Ht 167.6 cm; Wt 56.3 kg
[~2016-11-21 23:41] MED LIST changes: -COMMODE 3-IN-11 MIS; -TRANSPORT CHAIR1 MIS
[2016-11-22] VITALS (18 sets, daily range): BP systolic 95–128; BP diastolic 62–79; PULSE 74–166; RESP 14–30; TEMP 97.6–98; O2SAT 96–100
[2016-11-22] MEDS ORDERED: SODIUM CHLORIDE 0.9% FLUSH 10 ML FLUSH IVF PRN
[2016-11-22 00:46] LABS: AUTOMATED NEUTROPHIL # 15.2 TH/MM3 (1.8-7.7); BASOPHIL # 0.1 TH/MM3 (0-0.2); BASOPHIL % 0.5 % (0.0-2.0); EOSINOPHIL % 0.2 % (0.0-4.0); HEMATOCRIT 41.4 % (35.0-46.0); HEMO FLAGS DIFF FINAL; LYMPH % 4.9 % (9.0-44.0); LYMPHOCYTE # 0.9 TH/MM3 (1.0-4.8); MEAN CELL VOLUME 89.8 FL (80.0-100.0); MEAN CORPUSCULAR HEMOGLOBIN 29.8 PG (27.0-34.0); MEAN CORPUSCULAR HGB CONC 33.2 % (32.0-36.0); MONO % 8.2 % (0.0-8.0); NEUT % 86.2 % (16.0-70.0); PLATELET COUNT 289 TH/MM3 (150-450); RED BLOOD COUNT 4.61 MIL/MM3 (4.00-5.30); RED CELL DISTRIBUTION WIDTH 19.4 % (11.6-17.2); WHITE BLOOD COUNT 17.7 TH/MM3 (4.0-11.0)
--- NOTE | 2016-11-22 00:50 | RADRPT ---
EXAM DATE/TIME: 11/22/2016 00:09 [place] COMPARISON: CHEST SINGLE AP, November 11, 2016, 14:26. INDICATIONS : Defibrilator went off. MEDICAL HISTORY : Myocardial infarction. SURGICAL HISTORY : Pacemaker. Coronary artery disease. ENCOUNTER: Initial ACUITY: 1 day PAIN SCORE: 7/10 LOCATION: Bilateral chest FINDINGS: The cardiac silhouette is enlarged in transverse diameter. There is prominence of the aortic knob is with calcification characteristic of atherosclerotic vascular disease. A defibrillator device is in p lace via a left sided approach. CONCLUSION: 1. Cardiomegaly. No acute pulmonary disease. Akshat Kat MD on November 22, 2016 at 0:48 Board Certified Radiologist. This report was verified electronically.
--- NOTE | 2016-11-22 00:57 | PD ---
HPI Chief Complaint: Cardiac Complaint Time Seen by Provider: 23:59 Travel History International Travel<30 days: No Contact w/Intl Traveler<30days: No Traveled to known affect area: No History of Present Illness HPI 70-year-old female with history of multiple cardiac issues, CHF, CAD, hypertension, pacemaker, previous stroke with aphasia, atrial flutter, presents to the ER today brought in by EMS because patient's pacemaker fire today. She denies any chest pains, shortness of breath, palpitations prior to pacemaker firing. She denies any other issues. She was noted to be tachycardic on ambulance and was given Cardizem. Modifying Factors: None Associated Signs & Symptoms: Pacemaker fired Risk Factors: Cardiac history PFSH Past Medical History Hx Anticoagulant Therapy: Yes Arthritis: No Asthma: Yes Autoimmune Disease: No Blood Disorders: No Anxiety: No Depression: No Heart Rhythm Problems: Yes (aflutter) Cancer: No Cardiovascular Problems: Yes (2014) High Cholesterol: Yes Chemotherapy: No Chest Pain: No Congestive Heart Failure: Yes COPD: Yes Cerebrovascular Accident: Yes (present admission ) Coronary Artery Disease: Yes Diabetes: Yes Patient Takes Glucophage: Yes Diminished Hearing: No Endocrine: Yes Gastrointestinal Disorders: No GERD: No Genitourinary: No Hiatal Hernia: No Hypertension: Yes (on BP meds though) Immune Disorder: No Implanted Vascular Access Dvce: Yes Kidney Stones: No Musculoskeletal: No Neurologic: No Psychiatric: No Reproductive: Yes (bleeding- hysterectomy done ) Respiratory: Yes Immunizations Current: Yes Migraines: No Radiation Therapy: No Renal Failure: No Seizures: No Sickle Cell Disease: No Sleep Apnea: No Thyroid Disease: No Ulcer: No Past Surgical History Abdominal Surgery: Yes (cholecystectomy) AICD: Yes Appendectomy: Yes Arteriovenous Shunt: No Cardiac Surgery: Yes (DEFIBRILLATOR) Cholecystectomy: Yes Ear Surgery: No Endocrine Surgery: No Eye Surgery: No Genitourinary Surgery: Yes (hysterectomy) Gynecologic Surgery: Yes (FLORINDA) Hysterectomy: Yes Insulin Pump: No Joint Replacement: No Oral Surgery: Yes (teeth pulled for dentures. upper full lower partial ) Pacemaker: Yes Thoracic Surgery: No Other Surgery: Yes Social History Alcohol Use: No Tobacco Use: No Substance Use: No Allergies-Medications (Allergen,Severity, Reaction): Coded Allergies: No Known Allergies (Unverified , 11/21/16) Per daughter, patient is not allergic to aspirin and has no allergies. Reported Meds & Prescriptions Reported Meds & Active Scripts Active [Spironolactone] 25 MG Tab 25 Mg PO DAILY Bumetanide 1 Mg Tab 2 Mg PO BID@06,14 Restoril (Temazepam) 7.5 Mg Cap 7.5 Mg PO HS PRN [Aspirin Chew] 81 MG Chew 81 Mg CHEW DAILY Metformin (Metformin HCl) 500 Mg Tab 250 Mg PO BID With meals Zocor (Simvastatin) 40 Mg Tab 40 Mg PO DAILY Multi Vitamin (Multiple Vitamin) 1 Tab Tab 1 Tab PO DAILY Eliquis (Apixaban) 5 Mg Tab 5 Mg PO BID Review of Systems Except as stated in HPI: all other systems reviewed are Neg Physical Exam Narrative GENERAL: Well-developed elderly -Armenian female in no acute distress. She is awake, alert, very difficult to understand, aphasic. SKIN: Focused skin assessment warm/dry. HEAD: Atraumatic. Normocephalic. EYES: Pupils equal and round. No scleral icterus. No injection or drainage. ENT: No nasal bleeding or discharge. Mucous membranes pink and moist. NECK: Trachea midline. No JVD. CARDIOVASCULAR: Regular rate and rhythm. No murmur appreciated. RESPIRATORY: No accessory muscle use. Clear to auscultation. Breath sounds equal bilaterally. GASTROINTESTINAL: Abdomen soft, non-tender, nondistended. Hepatic and splenic margins not palpable. MUSCULOSKELETAL: No obvious deformities. No clubbing. No cyanosis. No edema. NEUROLOGICAL: Awake and alert. No obvious cranial nerve deficits. Motor grossly within normal limits. Normal speech. PSYCHIATRIC: Appropriate mood and affect; insight and judgment normal. Data Data Last Documented VS Vital Signs Date Time Temp Pulse Resp B/P Pulse Ox O2 Delivery O2 Flow Rate FiO2 11/22/16 00:04 98 28 98 Nasal Cannula 2 11/22/16 00:00 98.0 111/65 Orders Complete Blood Count With Diff (11/21/16 23:59) Comprehensive Metabolic Panel (11/21/16 23:59) Magnesium (Mg) (11/21/16 23:59) Ckmb (Isoenzyme) Profile (11/21/16 23:59) Troponin I (11/21/16 23:59) Act Partial Throm Time (Ptt) (11/21/16 23:59) Prothrombin Time / Inr (Pt) (11/21/16 23:59) Chest, Single Ap (11/21/16 23:59) Ecg Monitoring (11/21/16 23:59) Iv Access Insert/Monitor (11/21/16 23:59) Oximetry (11/21/16 23:59) Sodium Chloride 0.9% Flush (Ns Flush) (11/22/16 00:00) Consult Cardiology (11/22/16 ) Labs Laboratory Tests Test 11/22/16 00:30 White Blood Count 17.7 TH/MM3 Red Blood Count 4.61 MIL/MM3 Hemoglobin 13.7 GM/DL Hematocrit 41.4 % Mean Corpuscular Volume 89.8 FL Mean Corpuscular Hemoglobin 29.8 PG Mean Corpuscular Hemoglobin 33.2 % Concent Red Cell Distribution Width 19.4 % Platelet Count 289 TH/MM3 Mean Platelet Volume 8.1 FL Neutrophils (%) (Auto) 86.2 % Lymphocytes (%) (Auto) 4.9 % Monocytes (%) (Auto) 8.2 % Eosinophils (%) (Auto) 0.2 % Basophils (%) (Auto) 0.5 % Neutrophils # (Auto) 15.2 TH/MM3 Lymphocytes # (Auto) 0.9 TH/MM3 Monocytes # (Auto) 1.5 TH/MM3 Eosinophils # (Auto) 0.0 TH/MM3 Basophils # (Auto) 0.1 TH/MM3 CBC Comment DIFF FINAL Differential Comment Prothrombin Time 14.0 SEC Prothromb Time International 1.3 RATIO Ratio Activated Partial 29.4 SEC Thromboplast Time Sodium Level 133 MEQ/L Potassium Level 4.3 MEQ/L Chloride Level 100 MEQ/L Carbon Dioxide Level 20.0 MEQ/L Anion Gap 13 MEQ/L Blood Urea Nitrogen 48 MG/DL Creatinine 1.72 MG/DL Estimat Glomerular Filtration 36 ML/MIN Rate Random Glucose 172 MG/DL Calcium Level 9.8 MG/DL Magnesium Level 1.8 MG/DL Total Bilirubin 1.0 MG/DL Aspartate Amino Transf 38 U/L (AST/SGOT) Alanine Aminotransferase 31 U/L (ALT/SGPT) Alkaline Phosphatase 84 U/L Total Creatine Kinase 80 U/L Troponin I 2.14 NG/ML Total Protein 7.9 GM/DL Albumin 3.7 GM/DL MDM Medical Decision Making Medical Screen Exam Complete: Yes Emergency Medical Condition: Yes Medical Record Reviewed: Yes Interpretation(s) EKG shows paced rhythm at a rate of 100 bpm with no signs of acute ST-T changes. Laboratory Tests Test 11/22/16 00:30 White Blood Count 17.7 TH/MM3 (4.0-11.0) Red Cell Distribution Width 19.4 % (11.6-17.2) Neutrophils (%) (Auto) 86.2 % (16.0-70.0) Lymphocytes (%) (Auto) 4.9 % (9.0-44.0) Monocytes (%) (Auto) 8.2 % (0.0-8.0) Neutrophils # (Auto) 15.2 TH/MM3 (1.8-7.7) Lymphocytes # (Auto) 0.9 TH/MM3 (1.0-4.8) Monocytes # (Auto) 1.5 TH/MM3 (0-0.9) Prothrombin Time 14.0 SEC (9.8-11.6) Sodium Level 133 MEQ/L (136-145) Carbon Dioxide Level 20.0 MEQ/L (21.0-32.0) Blood Urea Nitrogen 48 MG/DL (7-18) Creatinine 1.72 MG/DL (0.50-1.00) Estimat Glomerular Filtration 36 ML/MIN (>89) Rate Random Glucose 172 MG/DL (74-106) Aspartate Amino Transf 38 U/L (15-37) (AST/SGOT) Troponin I 2.14 NG/ML (0.02-0.05) Last 24 hours Impressions Chest X-Ray 11/21/16 [id number] Signed Impressions: Service Date/Time: Tuesday, November 22, 2016 00:09 - CONCLUSION: 1. Cardiomegaly. No acute pulmonary disease. Akshat Kat MD Differential Diagnosis Dysrhythmias versus metabolic issues versus pacer dysfunction Narrative Course Patient seems to be an paced rhythm currently. Vital signs are stable in the ER. Lab work did not show significant metabolic issues. Her troponins are significantly elevated although I suspect that some that may be secondary to defibrillation. Case was discussed with Dr. Andrews of cardiology who states that he would not add any additional medications and that patient can get cardiology consult on the morning. Case was then discussed with Dr. Huff for admission. Diagnosis Primary Impression: Elevated troponin Additional Impression: Defibrillator discharge Admitting Information Admitting Physician Requests: Admit Khushi Ahmadi MD November 22, 2016 00:57
[2016-11-22 01:01] LABS: APTT (PATIENT) 29.4 SEC (24.3-30.1); INTERNATIONAL NORMALIZED RATIO 1.3 RATIO
[2016-11-22 01:03] LABS: ALKALINE PHOSPHATASE 84 U/L (45-117); ALT (GPT) 31 U/L (10-53); ANION GAP 13 MEQ/L (5-15); AST (GOT) 38 U/L (15-37); BLOOD UREA NITROGEN 48 MG/DL (7-18); CHLORIDE 100 MEQ/L (98-107); GLOMERULAR FILTRATION RATE 36 ML/MIN (>89); MAGNESIUM 1.8 MG/DL (1.5-2.5); SODIUM (NA) 133 MEQ/L (136-145)
[2016-11-22 01:04] LABS: CREATINE KINASE 80 U/L (26-192); POTASSIUM 4.3 MEQ/L (3.5-5.1)
--- NOTE | 2016-11-22 07:44 | PD.CONS ---
[facility] Service CV Consult Requested By Reason for Consult ICD discharge Primary Care Physician Unknown History of Present Illness Here with ischemic cardiomyopathy s/p TRANSCRIPT EVALUATOR AICD, atrial flutter, CHF, CAD. HTN, hyperlipidemia and paroxysmal VT admitted for ICD discharge. She was home and had taken a temazepam and was asleep when it shocked her twice. She denies any chest pain, shortness of breath or palpitations. She has had no further shocks Review of Systems Consitutional: DENIES: Fatigue, Fever, Chills, Weight gain, Weight loss Eyes: DENIES: Amaurosis Fugax, Change in vision HEENT: DENIES: Lightheadedness, Change in hearing Respiratory: DENIES: See HPI, Cough, Snoring, Shortness of breath, Wheezing, Sputum production Cardiovascular: COMPLAINS OF: See HPI Gastrointestinal: DENIES: Nausea, Vomiting, Change in bowel habits, Reflux, Bloody stools, Melena Genitourinary: DENIES: Urinary incontinence, Difficulty voiding Integumentary: DENIES: Rash Neurologic: DENIES: Tingling or numbness, Memory problems, Poor Balance, Stroke symptoms Musculoskeletal: DENIES: Joint pain, Muscle pain, Limited range of motion, Back pain Psychiatric: DENIES: Anxiety, Depression, Sleep disturbances Hematologic: DENIES: Bruising tendencies, Bleeding tendencies Endocrine: DENIES: Weight gain, Weight loss, Thyroid disease Past Family Social History Allergies: Coded Allergies: No Known Allergies (Unverified , 11/21/16) Per daughter, patient is not allergic to aspirin and has no allergies. Past Medical History see HPI h/o CVA lumbar radiculopathy h/o GI bleed Past Surgical History see HPI cholecystectomy hysterectomy venous reconstruction Reported Medications Reported Meds & Active Scripts Active [Spironolactone] 25 MG Tab 25 Mg PO DAILY Bumetanide 1 Mg Tab 2 Mg PO BID@06,14 Restoril (Temazepam) 7.5 Mg Cap 7.5 Mg PO HS PRN [Aspirin Chew] 81 MG Chew 81 Mg CHEW DAILY Metformin (Metformin HCl) 500 Mg Tab 250 Mg PO BID With meals Zocor (Simvastatin) 40 Mg Tab 40 Mg PO DAILY Multi Vitamin (Multiple Vitamin) 1 Tab Tab 1 Tab PO DAILY Eliquis (Apixaban) 5 Mg Tab 5 Mg PO BID Active Ordered Medications Current Medications Medications (Trade) Dose Ordered Sig/Gisela Route Start Time Stop Time Status Last Admin (NS Flush) 2 ml UNSCH PRN IVF 11/22/16 00:00 (Eliquis) 5 mg BID PO 11/22/16 09:00 (Bumetanide) 2 mg BID@06,14 PO 11/22/16 06:00 (Theragran) 1 tab DAILY PO 11/22/16 09:00 (Restoril) 7.5 mg HS PRN PO 11/22/16 02:00 (Pravachol) 80 mg DAILY PO 11/22/16 09:00 (Aspirin Chew) 81 mg DAILY CHEW 11/22/16 09:00 (Aldactone) 25 mg DAILY PO 11/22/16 09:00 Physical Exam Vital Signs Vital Signs Date Time Temp Pulse Resp B/P Pulse Ox O2 Delivery O2 Flow Rate FiO2 11/22/16 05:30 82 20 107/67 98 Nasal Cannula 2 11/22/16 04:00 90 20 96/62 98 Room Air 2 11/22/16 03:38 87 18 128/68 98 Nasal Cannula 2 11/22/16 02:00 95 18 118/70 100 Nasal Cannula 2 11/22/16 01:00 92 30 107/70 100 Nasal Cannula 2 11/22/16 00:04 98 28 98 Nasal Cannula 2 11/22/16 00:00 98.0 98 22 111/65 96 11/22/16 00:00 100 30 111/65 96 Nasal Cannula 2 11/22/16 00:00 111 30 111/65 Physical Exam GENERAL: Well-nourished, well-developed patient in no apparent distress. NECK: No JVD. No carotid bruit. CARDIOVASCULAR: Regular rate and rhythm. S1/S2 no murmur, rub, or gallop. RESPIRATORY: No accessory muscle use. Clear to auscultation. Breath sounds equal bilaterally. GASTROINTESTINAL: Abdomen soft, non-tender, nondistended. MUSCULOSKELETAL: Extremities without clubbing, cyanosis, or edema. Laboratory Laboratory Tests Test 11/22/16 00:30 White Blood Count 17.7 Red Blood Count 4.61 Hemoglobin 13.7 Hematocrit 41.4 Mean Corpuscular Volume 89.8 Mean Corpuscular Hemoglobin 29.8 Mean Corpuscular Hemoglobin 33.2 Concent Red Cell Distribution Width 19.4 Platelet Count 289 Mean Platelet Volume 8.1 Neutrophils (%) (Auto) 86.2 Lymphocytes (%) (Auto) 4.9 Monocytes (%) (Auto) 8.2 Eosinophils (%) (Auto) 0.2 Basophils (%) (Auto) 0.5 Neutrophils # (Auto) 15.2 Lymphocytes # (Auto) 0.9 Monocytes # (Auto) 1.5 Eosinophils # (Auto) 0.0 Basophils # (Auto) 0.1 CBC Comment DIFF FINAL Differential Comment Prothrombin Time 14.0 Prothromb Time International 1.3 Ratio Activated Partial 29.4 Thromboplast Time Sodium Level 133 Potassium Level 4.3 Chloride Level 100 Carbon Dioxide Level 20.0 Anion Gap 13 Blood Urea Nitrogen 48 Creatinine 1.72 Estimat Glomerular Filtration 36 Rate Random Glucose 172 Calcium Level 9.8 Magnesium Level 1.8 Total Bilirubin 1.0 Aspartate Amino Transf 38 (AST/SGOT) Alanine Aminotransferase 31 (ALT/SGPT) Alkaline Phosphatase 84 Total Creatine Kinase 80 Troponin I 2.14 Total Protein 7.9 Albumin 3.7 Result Diagram: 11/22/162911/22/1629 Assessment and Plan Problem List: (1) Defibrillator discharge Discussed Condition With Will have device safety representative come interrogate the device and go from there. Review of telemetry shows no VT/VF. Troponin elevation is likely due to shock. Her blood pressure is well controlled Slick Crespo November 22, 2016 07:44
[2016-11-22] MEDS: BUMETANIDE 1 MG TAB PO SCH ×2 (07:48→14:00)
--- NOTE | 2016-11-22 08:14 | HHI.HP ---
HPI [facility] Primary Care Physician Dr. Krupa Zamorano Admission Diagnosis pacemaker fire/elevated troponin Chief Complaint: AICD firing Travel History International Travel<30 Days: No Contact w/Intl Traveler <30 Da: No Traveled to Known Affected Are: No History of Present Illness Ms. Salinas is a 70 y/o AAF with recent history of CVA s/p angiogram and was found to have a large clot at the ICA, M1 segment, s/p embolectomy with yarsani of antegrade flow on 10/25/16, hypertension, coronary artery disease, CKD stage 3, diabetes, cardiomyopathy with an EF of 20-25%, and atrial flutter s /p EPS with ablation of A. flutter, right atrial ablation, Biventricular defibrillator reprogramming and cardioversion on 10/15/[address] Velazquez. She presented to the ED at [facility] on 11/21/16 after her AICD fired twice last night. Pt reports that this woke her up from sleep. She had not been symptomatic with any chest pain, palpitations or SOB prior to the firing of her AICD. According to the ED notes the pt was tachycardic en route to the hospital and was given Cardizem. Pts HR was 111 when she arrived to the ED and this has stabilized. Her troponin was elevated at 2.14 likely secondary to her ICD firing. Pt denies any new headache, SOB, palpitations, nausea/vomiting. She states that she was having some lower abdominal discomfort yesterday evening after she had eaten some spaghetti pasta. She took some MOM and prune juice because she thought that she needed to have a BM but so far has not produced a BM. She did pass some gas and the abd discomfort has resolved. Cardiology is following and interrogation of the AICD has been ordered. Review of Systems Constitutional: DENIES: Diaphoretic episodes, Fever, Chills, Dizziness Eyes: DENIES: Vision loss Ears, nose, mouth, throat: DENIES: Vertigo Respiratory: DENIES: Cough Cardiovascular: DENIES: Chest pain, Palpitations Gastrointestinal: COMPLAINS OF: Abdominal pain, DENIES: Diarrhea, Nausea, Reflux, Vomiting Musculoskeletal: DENIES: Neck pain Integumentary: DENIES: Rash Neurologic: DENIES: Headache Psychiatric: DENIES: Confusion Past Family Social History Past Medical History Recent CVA s/p s/p embolectomy A. flutter s/p ablation/cardioversion in 09/2016 HTN CAD CKD, stage 3 Cardiomyopathy with EF 20-25% based on 2D echo from 10/25/2016 COPD Hyperlipidemia Diabetes mellitus 2D echo (10/25/16): - EF 20-25%, diffuse hypokinesis - Akinesis and scarring og the inferoposterior myocardium - Moderate mitral regurg - LA mildly dilated - Moderate tricuspid regurg - Systolic pressure mildly to moderately increased, 55mmHg Past Surgical History Cardiac cath/EPS with ablation of A. flutter, right atrial ablation, Biventricular defibrillator reprogramming and cardioversion on 10/15/[address] Velazquez AICD placement Cholecystectomy Hysterectomy Reported Medications Spironolactone 25 MG Tab 25 Mg PO DAILY Bumetanide 1 Mg Tab 2 Mg PO BID@,14 Restoril (Temazepam) 7.5 Mg Cap 7.5 Mg PO HS PRN Aspirin Chew 81 MG Chew 81 Mg CHEW DAILY Metformin (Metformin HCl) 500 Mg Tab 250 Mg PO BID With meals Zocor (Simvastatin) 40 Mg Tab 40 Mg PO DAILY Multi Vitamin (Multiple Vitamin) 1 Tab Tab 1 Tab PO DAILY Eliquis (Apixaban) 5 Mg Tab 5 Mg PO BID Allergies: Coded Allergies: No Known Allergies (Unverified , 11/21/16) Per daughter, patient is not allergic to aspirin and has no allergies. Family History Noncontributory Social History No reported alcohol, tobacco or illicit drug use Physical Exam Vital Signs Vital Signs Date Time Temp Pulse Resp B/P Pulse Ox O2 Delivery O2 Flow Rate FiO2 11/22/16 07:52 85 18 112/63 98 Nasal Cannula 2 11/22/16 07:52 85 18 98 Nasal Cannula 2 11/22/16 05:30 82 20 107/67 98 Nasal Cannula 2 11/22/16 04:00 90 20 96/62 98 Room Air 2 11/22/16 03:38 87 18 128/68 98 Nasal Cannula 2 11/22/16 02:00 95 18 118/70 100 Nasal Cannula 2 11/22/16 01:00 92 30 107/70 100 Nasal Cannula 2 11/22/16 00:04 98 28 98 Nasal Cannula 2 11/22/16 00:00 98.0 98 22 111/65 96 11/22/16 00:00 100 30 111/65 96 Nasal Cannula 2 11/22/16 00:00 111 30 111/65 Physical Exam GENERAL: This is a well-nourished, well-developed patient, in no apparent distress. HEENT: Atraumatic. Normocephalic. No temporal or scalp tenderness. No scleral icterus. Airway patent. NECK: Trachea midline, supple, nontender. CARDIO: Regular. RESP: CTA bilaterally. ABD: +BS, soft, non-tender, nondistended. EXT: Right sided weakness in the UE and LE but improved compared to previous admission. NEURO: Awake and alert. Motor and sensory grossly within normal limits. Some mild speech difficulties. Laboratory Laboratory Tests Test 11/22/16 00:30 White Blood Count 17.7 Red Blood Count 4.61 Hemoglobin 13.7 Hematocrit 41.4 Mean Corpuscular Volume 89.8 Mean Corpuscular Hemoglobin 29.8 Mean Corpuscular Hemoglobin 33.2 Concent Red Cell Distribution Width 19.4 Platelet Count 289 Mean Platelet Volume 8.1 Neutrophils (%) (Auto) 86.2 Lymphocytes (%) (Auto) 4.9 Monocytes (%) (Auto) 8.2 Eosinophils (%) (Auto) 0.2 Basophils (%) (Auto) 0.5 Neutrophils # (Auto) 15.2 Lymphocytes # (Auto) 0.9 Monocytes # (Auto) 1.5 Eosinophils # (Auto) 0.0 Basophils # (Auto) 0.1 CBC Comment DIFF FINAL Differential Comment Prothrombin Time 14.0 Prothromb Time International 1.3 Ratio Activated Partial 29.4 Thromboplast Time Sodium Level 133 Potassium Level 4.3 Chloride Level 100 Carbon Dioxide Level 20.0 Anion Gap 13 Blood Urea Nitrogen 48 Creatinine 1.72 Estimat Glomerular Filtration 36 Rate Random Glucose 172 Calcium Level 9.8 Magnesium Level 1.8 Total Bilirubin 1.0 Aspartate Amino Transf 38 (AST/SGOT) Alanine Aminotransferase 31 (ALT/SGPT) Alkaline Phosphatase 84 Total Creatine Kinase 80 Troponin I 2.14 Total Protein 7.9 Albumin 3.7 Result Diagram: 11/22/162911/22/1629 Imaging Last Impressions Chest X-Ray 11/21/16 [id number] Signed Impressions: Service Date/Time: Tuesday, November 22, 2016 00:09 - CONCLUSION: 1. Cardiomegaly. No acute pulmonary disease. Akshat Kat MD Septic Shock Reassessment Heart: Regular rate and rhythm Lungs: Clear Skin: Warm Assessment and Plan Problem List: (1) Defibrillator discharge Status: Acute Plan: - Pt is a 70 y/o with recent history of CVA s/p embolectomy with yarsani of antegrade flow on 10/25/16, cardiomyopathy with an EF of 20-25%, and atrial flutter s/p EPS with ablation of A. flutter, right atrial ablation, Biventricular defibrillator reprogramming and cardioversion on 10/15/[address] Velazquez. - She was brought to the ED on 11/21/16 after her AICD had fired twice last night while she was sleeping. - No symptoms of chest pain or palpitations prior to the firing. - Cardiology is consulted - Interrogation of the AICD is ordered - Troponin I was elevated at 2.14 likely secondary to her AICd firing. - Home medications were resumed - Telemetry - DVT prophylaxis (2) Elevated troponin Status: Acute Plan: - See above. (3) CKD (chronic kidney disease) stage 3, GFR 30-59 ml/min Status: Chronic Plan: - Pts renal function was slightly elevated above baseline at admission. - Pt reportedly has been eating and drinking but family reports she only ate twice yesterday. - Encourage oral intake - Repeat labs in AM (4) Atrial flutter Status: Resolved Plan: - Pt with hx of atrial flutter s/p EPS with ablation of A. flutter, right atrial ablation, Biventricular defibrillator reprogramming and cardioversion on 10/15/[address] Velazquez. - Telemetry (5) Congestive heart failure Status: Chronic Plan: - Home meds resumed - Last 2D echo reviewed above, EF 20-25% - Monitor clinical status (6) Weakness due to cerebrovascular accident (CVA) Status: Chronic (7) Dysphagia as late effect of cerebrovascular accident (CVA) Status: Chronic (8) DM2 (diabetes mellitus, type 2) Status: Chronic Plan: - Hold OHA - NovoLog SSI - Accu checks (9) HTN (hypertension) Status: Chronic Plan: - BP is low/normal - Monitor closely Assessment and Plan Patient examined. Assessment and plan formulated with Christiana Villanueva PA-C. I agree with the above. atrial tach x 2 with aicd shock last night. documented that pt tachy today but the tele is sensing incorrectly and not actually tachycardic. cardiology following. will observe pt here tonight and await any reccs prior to d/c. pt says she thinks her battery is due for change. Christiana Villanueva November 22, 2016 08:14 Julian Huff MD November 22, 2016 14:24
[2016-11-22] MEDS ORDERED: ONDANSETRON HCL 4 MG/2 ML VIAL IV PRN (08:45)
[2016-11-22] MEDS ORDERED: ACETAMINOPHEN 325 MG TAB PO PRN (08:45)
[2016-11-22] MEDS: INSULIN ASPART SUPPLEMENTAL SCALE SQ SCH ×4 (08:46→21:37)
[2016-11-22] MEDS ORDERED: SIMETHICONE 125 MG CHEWABLE TAB PO PRN (09:00)
[2016-11-22] MEDS: APIXABAN 5 MG TABLET PO SCH ×2 (09:12→21:37)
[2016-11-22] MEDS: ASPIRIN 81 MG CHEW TAB CHEW SCH (09:13)
[2016-11-22] MEDS: MULTIVITAMIN TAB PO SCH (12:47)
[2016-11-22] MEDS: SPIRONOLACTONE 25 MG TAB PO SCH (12:47)
[2016-11-22] MEDS: PANTOPRAZOLE SOD 40 MG DELAYED RELEASE TAB PO SCH (12:47)
[2016-11-22] MEDS: PRAVASTATIN SOD 80 MG TAB PO SCH (12:47)
[2016-11-22] MEDS: TEMAZEPAM 7.5 MG CAP PO PRN (21:40)
--- NOTE | 2016-11-22 22:49 | EKG ---
Date Performed: 11/21/2016 Time Performed: 23:52:34 PTAGE: 70 years EKG: ELECTRONIC VENTRICULAR PACEMAKER ABNORMAL RHYTHM ECG NO PREVIOUS TRACING DOCTOR: Osbaldo Douglas Interpretating Date/Time 11/22/2016 22:47:23
[2016-11-23] VITALS (21 sets, daily range): BP systolic 88–111; BP diastolic 63–78; PULSE 60–87; RESP 16–18; TEMP 96.7–98.8; O2SAT 96–100
[2016-11-23] MEDS: BUMETANIDE 1 MG TAB PO SCH ×2 (06:27→14:00)
[2016-11-23] MEDS: INSULIN ASPART SUPPLEMENTAL SCALE SQ SCH ×4 (06:31→22:25)
[2016-11-23 06:54] LABS: AUTOMATED NEUTROPHIL # 6.1 TH/MM3 (1.8-7.7); BASOPHIL # 0.1 TH/MM3 (0-0.2); BASOPHIL % 0.8 % (0.0-2.0); EOSINOPHIL # 0.1 TH/MM3 (0-0.4); EOSINOPHIL % 0.9 % (0.0-4.0); HEMATOCRIT 38.7 % (35.0-46.0); HEMO FLAGS DIFF FINAL; LYMPH % 20.1 % (9.0-44.0); LYMPHOCYTE # 1.7 TH/MM3 (1.0-4.8); MEAN CELL VOLUME 91.3 FL (80.0-100.0); MEAN CORPUSCULAR HEMOGLOBIN 30.4 PG (27.0-34.0); MEAN CORPUSCULAR HGB CONC 33.3 % (32.0-36.0); MONO % 7.8 % (0.0-8.0); NEUT % 70.4 % (16.0-70.0); PLATELET COUNT 274 TH/MM3 (150-450); RED BLOOD COUNT 4.24 MIL/MM3 (4.00-5.30); RED CELL DISTRIBUTION WIDTH 19.2 % (11.6-17.2); WHITE BLOOD COUNT 8.6 TH/MM3 (4.0-11.0)
[2016-11-23 07:18] LABS: BICARBONATE 22.3 MEQ/L (21.0-32.0); MAGNESIUM 2.2 MG/DL (1.5-2.5); POTASSIUM 3.8 MEQ/L (3.5-5.1)
--- NOTE | 2016-11-23 07:34 | PD.CARD.PN ---
Subjective Subjective Remarks denies any CV complaints (Slick Crespo) Objective Vital Signs / I&O Vital Signs Date Time Temp Pulse Resp B/P Pulse Ox O2 Delivery O2 Flow Rate FiO2 11/23/16 04:00 84 11/23/16 00:00 97.8 79 16 111/78 96 11/22/16 20:00 97.9 82 16 114/79 97 11/22/16 20:00 82 11/22/16 18:00 87 11/22/16 17:00 74 11/22/16 16:00 87 11/22/16 15:00 89 11/22/16 15:00 97.7 88 18 95/72 97 11/22/16 14:00 88 11/22/16 13:00 166 11/22/16 12:00 162 11/22/16 11:04 97.6 84 18 103/74 98 11/22/16 09:57 120 16 116/74 97 Nasal Cannula 2 11/22/16 09:14 123 14 99 Nasal Cannula 2 11/22/16 07:52 85 18 112/63 98 Nasal Cannula 2 11/22/16 07:52 85 18 98 Nasal Cannula 2 I/O 11/22/16 11/22/16 11/22/16 11/23/16 11/23/16 11/23/16 07:00 15:00 23:00 07:00 15:00 23:00 Intake Total 1000 ml 240 ml Output Total 400 ml 900 ml Balance 600 ml -660 ml Intake Oral 1000 ml 240 ml Output Urine Total 400 ml 900 ml # Voids 1 # Bowel Movements 0 Physical Exam GENERAL: Well-nourished, well-developed patient in no apparent distress. NECK: No JVD. No carotid bruit. CARDIOVASCULAR: Regular rate and rhythm. S1/S2 no murmur, rub, or gallop. RESPIRATORY: No accessory muscle use. Clear to auscultation. Breath sounds equal bilaterally. GASTROINTESTINAL: Abdomen soft, non-tender, nondistended. MUSCULOSKELETAL: Extremities without clubbing, cyanosis, or edema. Laboratory Laboratory Tests Test 11/23/16 04:35 White Blood Count 8.6 TH/MM3 Red Blood Count 4.24 MIL/MM3 Hemoglobin 12.9 GM/DL Hematocrit 38.7 % Mean Corpuscular Volume 91.3 FL Mean Corpuscular Hemoglobin 30.4 PG Mean Corpuscular Hemoglobin 33.3 % Concent Red Cell Distribution Width 19.2 % Platelet Count 274 TH/MM3 Mean Platelet Volume 8.6 FL Neutrophils (%) (Auto) 70.4 % Lymphocytes (%) (Auto) 20.1 % Monocytes (%) (Auto) 7.8 % Eosinophils (%) (Auto) 0.9 % Basophils (%) (Auto) 0.8 % Neutrophils # (Auto) 6.1 TH/MM3 Lymphocytes # (Auto) 1.7 TH/MM3 Monocytes # (Auto) 0.7 TH/MM3 Eosinophils # (Auto) 0.1 TH/MM3 Basophils # (Auto) 0.1 TH/MM3 CBC Comment DIFF FINAL Differential Comment Sodium Level 134 MEQ/L Potassium Level 3.8 MEQ/L Chloride Level 99 MEQ/L Carbon Dioxide Level 22.3 MEQ/L Anion Gap 13 MEQ/L Blood Urea Nitrogen 48 MG/DL Creatinine 1.65 MG/DL Estimat Glomerular Filtration 37 ML/MIN Rate Random Glucose 155 MG/DL Calcium Level 9.6 MG/DL Magnesium Level 2.2 MG/DL (Slick Crespo) Assessment and Plan Problem List: (1) Defibrillator discharge Assessment and Plan Inappropriate shocks for atrial tach, start metoprolol 12.5 mg BID in face of her hypotension. Sign off. (Slick Crespo) Assessment and Plan Pacer/AICD at [facility]. [facility] consult Dr. Pardo for generator change (Akshat Olson MD) Slick Crespo November 23, 2016 07:34 Akshat Olson MD November 23, 2016 08:02
[2016-11-23] MEDS ORDERED: PILL SPLITTER OTHER PRN (07:45)
[2016-11-23] MEDS: PANTOPRAZOLE SOD 40 MG DELAYED RELEASE TAB PO SCH (08:40)
[2016-11-23] MEDS: PRAVASTATIN SOD 80 MG TAB PO SCH (08:40)
[2016-11-23] MEDS: APIXABAN 5 MG TABLET PO SCH ×3 (08:40→22:20)
[2016-11-23] MEDS: METOPROLOL TARTRATE 25 MG TAB PO SCH ×2 (08:40→22:20)
[2016-11-23] MEDS: SPIRONOLACTONE 25 MG TAB PO SCH (08:40)
[2016-11-23] MEDS: MULTIVITAMIN TAB PO SCH (08:40)
[2016-11-23] MEDS ORDERED: METOPROLOL TARTRATE 25 MG TAB PO SCH (09:00)
[2016-11-23] MEDS: ASPIRIN 81 MG CHEW TAB CHEW SCH (09:00)
--- NOTE | 2016-11-23 10:41 | HHI.PR ---
Subjective Remarks no new complaints. she worries about going home and aicd firing again. Objective Vitals heart reg lung cta abd s/nt ext no edema Vital Signs Date Time Temp Pulse Resp B/P Pulse Ox O2 Delivery O2 Flow Rate FiO2 11/23/16 10:05 75 11/23/16 09:45 87 11/23/16 08:00 76 11/23/16 08:00 78 11/23/16 08:00 97.9 79 18 97/63 96 11/23/16 04:00 84 11/23/16 01:00 68 11/23/16 00:00 97.8 79 16 111/78 96 11/22/16 20:00 97.9 82 16 114/79 97 11/22/16 20:00 82 11/22/16 18:00 87 11/22/16 17:00 74 11/22/16 16:00 87 11/22/16 15:00 89 11/22/16 15:00 97.7 88 18 95/72 97 11/22/16 14:00 88 11/22/16 13:00 166 11/22/16 12:00 162 11/22/16 11:04 97.6 84 18 103/74 98 11/22/16 11/22/16 11/23/16 15:00 23:00 07:00 Intake Total 1000 ml 240 ml Output Total 400 ml 900 ml Balance 600 ml -660 ml Intake Oral 1000 ml 240 ml Output Urine Total 400 ml 900 ml # Bowel Movements 0 Result Diagram: 11/23/16 0435 11/23/16 0435 Imaging Last Impressions Chest X-Ray 11/21/16 1926 Signed Impressions: Service Date/Time: Tuesday, November 22, 2016 00:09 - CONCLUSION: 1. Cardiomegaly. No acute pulmonary disease. Akshat Kat MD A/P Problem List: (1) Defibrillator discharge Status: Acute Plan: - Pt is a 70 y/o with recent history of CVA s/p embolectomy with evangelical of antegrade flow on 10/25/16, cardiomyopathy with an EF of 20-25%, and atrial flutter s/p EPS with ablation of A. flutter, right atrial ablation, Biventricular defibrillator reprogramming and cardioversion on 10/15/[address] Velazquez. - She was brought to the ED on 11/21/16 after her AICD had fired twice last night while she was sleeping. - No symptoms of chest pain or palpitations prior to the firing. - Interrogation of the AICD showed shock x 2 for atrial tach -Discussed with Dr Olson..started metoprolol. will monitor for hypotension. Also apparently battery is end of life and needs changed before d/c home. (2) CKD (chronic kidney disease) stage 3, GFR 30-59 ml/min Status: Chronic Plan: - Pts renal function was slightly elevated above baseline at admission. - Encourage oral intake (3) Atrial flutter Status: Resolved Plan: - Pt with hx of atrial flutter s/p EPS with ablation of A. flutter, right atrial ablation, Biventricular defibrillator reprogramming and cardioversion on 10/15/[address] Velazquez. - Telemetry (4) Congestive heart failure Status: Chronic Plan: - Home meds resumed - Last 2D echo reviewed above, EF 20-25% - Monitor clinical status (5) Weakness due to cerebrovascular accident (CVA) Status: Chronic (6) Dysphagia as late effect of cerebrovascular accident (CVA) Status: Chronic (7) DM2 (diabetes mellitus, type 2) Status: Chronic Plan: - Hold OHA - NovoLog SSI - Accu checks (8) HTN (hypertension) Status: Chronic Plan: - BP is low/normal - Monitor closely Julian Huff MD November 23, 2016 10:41 Plan: - BP is low/normal - Monitor closely Julian Huff MD November 23, 2016 10:41
[2016-11-23] MEDS ORDERED: PROPOFOL 200 MG/20 ML AMP IV ONE (13:45)
[2016-11-23] MEDS ORDERED: VANCOMYCIN 500 MG VIAL ONE (13:47)
[2016-11-23] MEDS ORDERED: LIDOCAINE HCL 2% 50 ML VIAL ONE (13:47)
[2016-11-23] MEDS ORDERED: ceFAZolin INJ 1,000 MG VIAL ONE (13:47)
[2016-11-23] MEDS ORDERED: VANCOMYCIN HCL 1000 MG VIAL ONE (13:47)
[2016-11-23] MEDS ORDERED: MIDAZOLAM HCL 2 MG/2 ML VIAL ONE (14:09)
[2016-11-23] MEDS ORDERED: KETAMINE HCL 500 MG/5 ML VIAL ONE (14:15)
--- NOTE | 2016-11-23 15:20 | CATHPROC ---
[place] HIS Report Study Information Study Number Scheduled Start Study Start [id number] 11/23/2016 Nov 23 2016 1:45PM Referring Institution Admit Source Facility Department 1 Other [facility] [employer] Supervisor Physician and Clinical Staff Initial Marilee Garcias Broadcast Engineer Stephon Lester,JONG Other Anesthesia, GARBAGE COLLECTOR Recorder Sarah Turcios BSRN Scrub David, Roxanna,STOCK DEALER TECH2 Equipment Time Puttier Description Size Mfg Part Number Used/Scraped 13:49 [employer]ADCO MEDICAL DRAPE, [place] X-RAY 12X17 12X17 D-100 Used INTRODUCER SET, MPIS-502-10.0- 13:49 [employer]. FR 5 Used MICROPUNCTURE, STIFFENED SC-NT-U-SST INTRODUCER SET, MPIS-502-10.0- 13:49 [employer] FR 5 Used MICROPUNCTURE, STIFFENED SC-NT-U-SST 13:49 Gyros DRAPE, IOBAN 2 [id number] 26cm x 20cm [id number] Used 13:49 Gyros SUTURE, STRIP PLUS 1/2" * [id number] Used 13:49 MEDLINE PACER ADHESIVE, MASTISOL 2/3CC 2/3CC 0523-48 Used 13:49 MEDLINE PACER PATTERSON, LIMB * [id number] Used 13:49 MEDLINE PACER PACK, PACER CUSTOM * [id number] Used 13:49 [employer] PACER PEN, SKIN DUAL W/ RULER * [id number] Used PROBE COVER, STERILE 13:49 [employer] MEDICAL * [id number] Used ULTRASOUND W/ GEL 14:46 Needle Sponge Count 1 1 Used 14:03 Needle Sponge Count 1 1 Used 14:52 Needle Sponge Count 1 1 Used 14:52 Needle Sponge Count 2 22 Used 14:04 Needle Sponge Count 2 22 Used 14:46 Needle Sponge Count 2 22 Used 14:04 Needle Sponge Count 20 200 Used 14:04 Needle Sponge Count 25 1 Used 14:46 Needle Sponge Count 30 1 Used 14:52 Needle Sponge Count 30 1 Used SUTURE, 0 ETHIBOND [CT1] ([id number]), 8pk SUTURE, 2-0 VICRYL [CT1] ([id number]) SUTURE, 2-0 VICRYL [CT1] ([id number]) SUTURE, 4-0 VICRYL [PS2] ([id number]) 13:49 [place] [employer],WARM AIR CCL * [id number] Used 14:33 [employer] MEDICAL DEFIBRILLATOR, ADELAIDE CHOW VVED-DDDRV [id number] Used [facility] PAD, ELECTROSURGICAL 13:49 * [id number] Used SURGICAL GROUNDING ORANGE 13:56 VIT[employer]RON MEDTRONIC PLASMABLADE, PEAD 3.0S * [id number] Used 13:49 [place] MEDICAL ASHLEY. ELECTRODE, PRO-PADZ BIPHASIC * [id number] Used Equipment Model, Serial, Lot Number and Expiration Data Description Model Number Serial Number Lot Number Expiration Date DEFIBRILLATOR, ADELAIDE CHOW [id number] 04-23-2018 History: Current Medications Medication Dosage/Unit Route Frequency Last Date/Time Taken ASA 81 mg Oral Glucophage 500 mg Oral MVI ELIQUIS 5 mg Oral History: Allergies Allergy Reaction No Known Allergies History: Risk Factors Hypertension Dyslipidemia Previous [place] Previous Heart Failure Yes Yes No Yes Prior Valve Prior PCI Prior CABG Surgery No No No Cerebrovascular Peripheral Artery Chronic Lung On Dialysis Diabetes Diabetes Therapy Disease Disease Disease No Yes No Yes Yes Oral History: Risk Factors Selection Items Diabetes Hyperlipidemia Chronic Lung Disease untreated EF </= 30% History: CV Disease Selection Items Cardiomyopathy Known CAD History: Other Disease Selection Items COPD HTN Renal Failure/Insufficiency Labs Hgb (g/dl) Hct (%) RBC (MIL/MM3) WBC (l/cumm) Platelets (thousands) 12.00-18.00 37.00-55.00 4.80-6.20 4.80-10.80 140.00-450.00 12.9 38.7 4.2 8.6 274 Glucose (mg/dl) BUN (mg/dl) Creatinine (mg/dl) BUN:Creatinine (1:x) 60.00-110.00 8.00-20.00 0.10-9.00 10.00-20.00 155 48 1.6 30 Na (meq/l) K (meq/l) Cl (meq/l) CO2 (mmol/L) Ca (mg/dl) 138.00-146.00 3.80-5.10 101.00-111.00 23.00-30.00 9.00-10.50 134 3.8 99 22.3 9.6 PT (sec) PTT (sec) INR (PTT:PT) 9.40-11.40 25.10-32.70 0.50-2.00 14 29.4 1.3 Medication Medication Total Dose (Bolus/Oral) Medication Total Dosage/Unit 2% XYLOCAINE 50 mL Medications (Bolus/Oral) Medication Time Given Dosage/Unit Administered By Reason 2% XYLOCAINE 11/23/2016 2:26:57 PM 50 mL Marilee Pardo 50 mL 2% XYLOCAINE given in lab by Marilee Pardo via Subcutaneous. Ordered by Marilee Pardo. LEFT UPPER CHEST Medication (Drip) Medication Time Given Dosage/Unit Concentration/Unit Diluent (ml) Solution ANCEF 11/23/2016 2:15:00 PM 2 g 2 g ANCEF given in lab by Anesthesia, GARBAGE COLLECTOR in Right Forearm via Peripheral IV. Ordered by Bobby Pardo. Reason: As per physicians verbal order. IV Solutions 11/23/2016 1:50:36 PM 0 mL (IV) NaCl .9 Patient arrived on IV Solutions in Left Forearm via Peripheral IV. Pump/Drip Flow = 100 ml/hr using N aCl .9. Ordered by Marilee Pardo. VANCOCIN 11/23/2016 2:15:01 PM 1 mg 1 mg VANCOCIN given in lab by Anesthesia, GARBAGE COLLECTOR in Right Forearm via Peripheral IV. Ordered by Marilee Pardo. Reason: As per physicians verbal order. Initial Case Assessment Cardiovascular HR NIBP 77 115/81 Edema Present Skin color Skin None Normal Warm Dry Neurological State Lethargic Moves all extremities Comment: H/O CVA Respiration - General Respiration Rate SpO2 (%) (B/min) 20 99 Final Case Assessment Cardiovascular HR NIBP 68 102/65 Edema Present Skin color Skin None Normal Warm Dry Neurological State Lethargic Moves all extremities Comment: H/O CVA Respiration - General Respiration Rate SpO2 (%) (B/min) 18 98 Chronological Log Time Study Chronological Log 13:45:23 Patient arrived via Bed. 13:45:26 Patient Name, D.O.B, / Armband Verified By R.N. 13:48:35 Consent signed by the physician and the patient and verified by the Clay Shop Supervisor staff. 13:48:37 Pre-op and post- op instructions given; patient acknowledges understanding of instructions. 13:48:40 Verbal Stimulation=2 Physical Stimulation=2 Airway=2 Respiration=2 TOTAL=10. (0=absent, 1=l imited, 2=present) 13:49:00 Anesthesia at bedside. Assumes care of patient. 13:49:03 Patient has been NPO for More than 6Hrs. 13:49:06 Skin Breakdown. NONE 13:49:13 Patient Warmer Placed on the Table. 13:49:16 Disposable Defibrillator Pads Placed On Patient. 13:49:20 Samson Prominences Protected 13:49:23 History and physical on the chart or being dictated. 13:49:25 Table restraints applied according to hospital policy 13:49:33 Left Upper Chest Prepped Times Two. 13:50:22 A # 20 IV was noted in the Wrist (left). Grade = ~GRADE~ Patient arrived on IV Solutions in Left Forearm via Peripheral IV. Pump/Drip Flow = 100 ml/hr u sing NaCl .9. Ordered 13:50:36 by Marilee Pardo. 13:51:57 Bovie ground pad applied to: RIGHT THIGH 13:52:07 2% CHLORHEXIDINE GLUCONATE WASH AND NASAL SWIPE DONE PRIOR TO PROCEDURE. 14:03:06 First Sponge And Instrument Count Done. 14:04:47 MD paged Assessment: Initial Case, HR=77 BPM, ZTAK=743/81 mmhg, Edema=None, Color=Normal, Skin = Warm, D ry 14:04:53 Neurological: State=Lethargic, [place], Comment=H/O CVA Respiration: Resp=20 B/min, SpO2=99 % 2 g ANCEF given in lab by Anesthesia, GARBAGE COLLECTOR in Right Forearm via Peripheral IV. Ordered by Marilee Iqbal. Reason: 14:15:00 As per physicians verbal order. 1 mg VANCOCIN given in lab by Anesthesia, GARBAGE COLLECTOR in Right Forearm via Peripheral IV. Ordered by Marilee Byers. 14:15:01 Reason: As per physicians verbal order. 14:19:00 Reference ECG taken 14:24:00 MD arrived. 14:25:00 Immediate Presedation assesment performed by physician. Time Out. Correct patient, procedure, procedure equipment, site and side verified with physicia n present. Time 14:25:23 concurred by MD, individual staff and GARBAGE COLLECTOR. Time Out #2 - Consents verified, patient in correct position, all results are labled and displa yed, safety precautions 14:25:27 taken, antibiotics administered. Time out concurred by MD, individual staff and GARBAGE COLLECTOR in procedu re 14:25:56 Case Start 50 mL 2% XYLOCAINE given in lab by Marilee Pardo via Subcutaneous. Ordered by Marilee Pardo . LEFT UPPER 14:26:57 CHEST 14:28:18 Surgical Incision Made. 14:32:09 A device was explanted. 14:38:15 one antibiotic sponge put into the surgical pocket. 14:42:00 A DEFIBRILLATOR, UNIFY ASSURA VVED-DDDRV was connected and placed in the pocket. 14:43:43 Pocket flushed with antibiotic solution 14:44:00 Antibiotic sponge removed from the surgical pocket. 14:44:27 The pocket was closed. 14:45:36 Second Sponge And Instrument Count Done. 14:47:09 Implant Procedure was performed. BIV ICD GENERATOR CHANGE 14:47:39 A Bivent ICD Implant . (Dual) GENERATOR CHANGE 14:48:42 The DFT was Success at 20 Joules, 50 Ohms lead impedance and 3600 ms charge time. 14:51:35 Bedside Report will be given. 14:51:40 Steri-strips and a sterile dressing applied to site. 14:51:48 The Final Sponge And Instrument Count Done. 14:53:15 Case End Assessment: Final Case, HR=68 BPM, PUDQ=768/65 mmhg, Edema=None, Color=Normal, Skin = Warm, Dry 14:54:14 Neurological: State=Lethargic, [place], Comment=H/O CVA Respiration: Resp=18 B/min, SpO2=98 % 14:55:05 No case complications noted. 14:55:07 Cine recording checked. 14:55:12 Defibrillator and ground pads removed. Skin intact. 14:55:19 Verbal Stimulation=2 Physical Stimulation=2 Airway=2 Respiration=2 TOTAL=10. (0=absent, 1= limited, 2=present) 14:55:39 Holding Area notified of successful intervention. 14:56:10 Implantable Device card placed in patient's chart. 15:15:00 Patient moved to stretcher 15:19:20 Patient transported to [facility] in stable condition End Study - Contrast Media Used In Study Contrast Total Opened (mL) Total Used (mL) Total Wasted (mL) Unspecified 0 0 0 End Study - Radiation Exposure Fluoro Time (minutes) 0.2 End Study - Patient Disposition Complications Transferred To Interventional Outcome No Telemetry Bed successful
[2016-11-23] MEDS ORDERED: MEGESTROL ACETATE SUSP 400 MG/10 ML CUP PO SCH (20:15)
[2016-11-23] MEDS ORDERED: MEGESTROL ACETATE 40 MG TAB PO SCH (21:00)
[2016-11-23] MEDS: ceFAZolin 2 GM PREMIX 50 ML IV SCH (22:21)
--- NOTE | 2016-11-23 22:24 | MR ---
cc: SHAHID CUNNINGHAM MD DATE: 11/23/2016 INDICATIONS: End of life of 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 Ejection fraction 25%. Date of echo: 10/25/2016. CHF, class II. Patient is in sinus rhythm with biventricular pacing over 90% of the time. Atrial lead is in place for SVT discrimination. History of left bundle-branch block. PROCEDURE PERFORMED 1. Explantation of end of life [employer] Albaro dual chamber biventricular defibrillator. 2. Placement of a new [employer] Albaro dual chamber biventricular defibrillator. 3. Testing of [employer] Albaro dual chamber biventricular defibrillator system. ACCESS SITE Left subclavian vein. EQUIPMENT USED Generator: [employer] Al[employer]o, model [id number] dual chamber biventricular defibrillator, serial number [id number]. Right atrial lead: [employer] Albaro, model 23253S/52. Atrial lead: Serial #[id number]. Right ventricular lead: [employer] Albaro, model 7071/65. Serial number [id number]. Left ventricular lead: [employer] Albaro, model 351111/35. Coronary sinus lead: Serial [id number]. LEAD TESTING Right atrial lead: P-wave 4.7 millivolts, lead impedance 350 ohms, pacing threshold 0.7 volts at 0.5 milliseconds. Right ventricular lead: R-wave 4.3 millivolts, lead impedance 450 ohms, pacing threshold 1.7 volts at 1.0 milliseconds. Left ventricular lead: Lead impedance 250 ohms, pacing threshold 0.7 volts at 1.0 milliseconds. Ventricular tachycardia was induced on one occasion and terminated with a 15 joule shock with an impedance of 50 ohms. DIAGNOSIS 1. Successful replacement of end of life [employer] Albaro dual-chamber biventricular defibrillator. 2. Successful testing of [employer] Albaro dual chamber biventricular defibrillator system. 3. Defibrillation threshold of 15 joules or less. DISPOSITION Ms. Salinas will be monitored on telemetry after her procedure. We will continue antibiotics. She was given instructions concerning her wound care. She will be seen for a wound check and chronic device programming in our office within two weeks. She will then be seen at [facility] pacemaker[facility]defibrillator clinic for long-term device followup. MD MAGALY Marino /3:11 PM /10:12 PM ARPAN
[2016-11-23] MEDS: TEMAZEPAM 7.5 MG CAP PO PRN (23:39)
[2016-11-24] VITALS (26 sets, daily range): BP systolic 97–106; BP diastolic 68–73; PULSE 59–124; RESP 14–18; TEMP 96.9–98.2; O2SAT 98–100
[2016-11-24] MEDS ORDERED: VANCOMYCIN INJ 1,000 MG in SODIUM CHLOR 0.9% 250 ML INJ 250 ML IV ONE (02:00)
[2016-11-24] MEDS: INSULIN ASPART SUPPLEMENTAL SCALE SQ SCH ×4 (06:18→21:00)
[2016-11-24] MEDS: ceFAZolin 2 GM PREMIX 50 ML IV SCH ×2 (06:18→14:04)
[2016-11-24] MEDS: BUMETANIDE 1 MG TAB PO SCH ×2 (06:24→14:04)
[2016-11-24] MEDS: traMADol HCL 50 MG TAB PO PRN (06:38)
[2016-11-24] MEDS: APIXABAN 5 MG TABLET PO SCH (08:45)
[2016-11-24] MEDS: SPIRONOLACTONE 25 MG TAB PO SCH (08:45)
[2016-11-24] MEDS: ASPIRIN 81 MG CHEW TAB CHEW SCH (08:45)
[2016-11-24] MEDS: METOPROLOL TARTRATE 25 MG TAB PO SCH ×2 (08:45→22:30)
[2016-11-24] MEDS: MULTIVITAMIN TAB PO SCH (08:46)
[2016-11-24] MEDS: PRAVASTATIN SOD 80 MG TAB PO SCH (08:46)
[2016-11-24] MEDS: PANTOPRAZOLE SOD 40 MG DELAYED RELEASE TAB PO SCH (08:46)
--- NOTE | 2016-11-24 08:48 | MB ---
cc: SHAHID CUNNINGHAM DATE OF CONSULTATION: 11/23/2016 REASON FOR CONSULTATION: Ms. Salinas is a 70 year old female with a history of ventricular tachycardia, mixed cardiomyopathy, congestive heart failure with severe left ventricular systolic dysfunction. She presented with two ICD shocks due to atrial tachyarrhythmia; interrogation of her device revealed the device to be at [facility]. She is now referred for changeout of her defibrillator. PAST MEDICAL HISTORY: 1. Positive for [employer] Albaro Dual chamber biventricular defibrillator placement. 2. Atrial flutter. 3. Congestive heart failure. 4. Mixed cardiomyopathic congestive heart failure dysfunction. 5. Coronary artery disease. 6. Left anterior descending stent placement in 2014 with aortic stenosis found on heart catheterization in 2016 which needs to be managed medically. 7. Dyslipidemia. 8. Gastrointestinal bleed. 10. Cerebrovascular accident. 11. Cholecystectomy. 12. Hysterectomy. 13. Venous reconstruction. 14. Positive for 2D echocardiogram on 10/25/2016 which showed ejection fraction of 20-25%. 15. Chronic obstructive pulmonary disease. 16. Diabetes mellitus. 17. Chronic kidney disease stage 3. 18. Atrial ablation and cardioversion 09/2016. 19. History of cerebrovascular accident and embolectomy. MEDICATIONS: 1. Eliquis. 2. Multivitamin 3. Zocor 4. Metformin 5. Aspirin 6. Risperdal. 7. Bumex 8. Spironolactone. ALLERGIES NO KNOWN DRUG ALLERGIES SOCIAL HISTORY: She does smoke, she does not drink alcohol. FAMILY HISTORY: Negative for heart disease. REVIEW OF SYSTEMS Otherwise negative. PHYSICAL EXAMINATION: VITAL SIGNS: Blood pressure 92/64. Pulse 79 and regular. HEAD, EYES, EARS, NOSE, AND THROAT: Negative. 2+ carotid upstrokes. HEART: Clear, regular with no murmur, gallop or rub. CHEST: Left upper chest, site is stable. ABDOMEN: The abdomen is soft. EXTREMITIES: Without edema. Distal pulses. Pulses nonfocal. RADIOLOGIC: Electrocardiogram was reviewed and showed sinus rhythm, biventricular pacing. LABORATORY FINDINGS: Hemoglobin 12.9, potassium 3.8, creatinine 1.65. Troponin 2.1. Aspartate aminotransferase 38, ALT 31. DIAGNOSIS: 1. End of life of [employer] Albaro dual chamber biventricular defibrillator. 2. Recent ICD shocks for atrial tachyarrhythmias. 3. Mixed cardiomyopathy with severe LV dysfunction (ejection fraction is 20-25% ). 4. Congestive heart failure, class 2. 5. Coronary artery disease, coronary artery stenting in 2016. 6. Hypertension. 7. Dyslipidemia. 8. Diabetes mellitus. 9. Chronic kidney disease. DISPOSITION: Ms. Salinas will undergo the replacement of her end of life, dual chamber biventricular defibrillator. She understands the risks and benefits, and wishes to proceed. MD SAIMA Marino/ryan /3:00 PM /8:43 AM ARPAN
--- NOTE | 2016-11-24 09:52 | HHI.PR ---
Subjective Remarks family and pt asking for antidepressant and appetite stimulant. Objective Vitals heart reg lung cta abd s/nt ext no edema Vital Signs Date Time Temp Pulse Resp B/P Pulse Ox O2 Delivery O2 Flow Rate FiO2 11/24/16 06:00 60 11/24/16 05:00 60 11/24/16 04:21 61 97/72 100 11/24/16 04:00 60 11/24/16 03:00 104 11/24/16 02:00 60 11/24/16 01:00 60 11/24/16 00:00 60 11/23/16 23:00 60 11/23/16 23:00 97.4 61 88/70 100 11/23/16 22:00 70 11/23/16 21:00 70 11/23/16 20:00 68 11/23/16 19:00 97.7 70 100/70 100 11/23/16 19:00 70 11/23/16 18:14 71 11/23/16 18:14 98.8 71 18 98/75 100 11/23/16 17:19 98.7 69 18 98/68 100 11/23/16 17:09 70 11/23/16 16:36 98.7 70 18 97/75 100 11/23/16 16:02 72 11/23/16 16:00 98.7 71 18 101/73 100 11/23/16 15:58 98.7 74 18 101/73 100 11/23/16 15:58 72 11/23/16 13:00 79 11/23/16 12:25 78 11/23/16 11:36 96.7 68 18 90/64 99 11/23/16 11:36 69 11/23/16 10:05 75 11/23/16 11/23/16 11/24/16 15:00 23:00 07:00 Intake Total 740 ml 480 ml Output Total 700 ml Balance 740 ml -220 ml Intake Oral 240 ml 480 ml IV Total 500 ml Output Urine Total 700 ml # Voids 3 # Bowel Movements 0 Result Diagram: 11/23/16 0435 11/23/16 0435 Imaging Last Impressions Chest X-Ray 11/21/16 6538 Signed Impressions: Service Date/Time: Tuesday, November 22, 2016 00:09 - CONCLUSION: 1. Cardiomegaly. No acute pulmonary disease. Akshat Kat MD A/P Problem List: (1) Defibrillator discharge Status: Acute Plan: - Pt is a 70 y/o with recent history of CVA s/p embolectomy with hinduism of antegrade flow on 10/25/16, cardiomyopathy with an EF of 20-25%, and atrial flutter s/p EPS with ablation of A. flutter, right atrial ablation, Biventricular defibrillator reprogramming and cardioversion on 10/15/[address] Velazquez. - She was brought to the ED on 11/21/16 after her AICD had fired twice while she was sleeping. - No symptoms of chest pain or palpitations prior to the firing. - Interrogation of the AICD showed shock x 2 for atrial tach -Discussed with Dr Olson..started metoprolol. will monitor for hypotension. Also apparently battery is end of life and needs changed before d/c home. Dr Pardo exchanged for a new aicd / d/c when ok with cardiology. pt says she uses glucophage at home for dm. will just try glipizide as renal function poor for glucophage. check hgba1c. family also requesting appetite stim and antidepressant. (2) CKD (chronic kidney disease) stage 3, GFR 30-59 ml/min Status: Chronic Plan: - Pts renal function was slightly elevated above baseline at admission. - Encourage oral intake (3) Atrial flutter Status: Resolved Plan: - Pt with hx of atrial flutter s/p EPS with ablation of A. flutter, right atrial ablation, Biventricular defibrillator reprogramming and cardioversion on 10/15/[address] Velazquez. - Telemetry (4) Congestive heart failure Status: Chronic Plan: - Home meds resumed - Last 2D echo reviewed above, EF 20-25% - Monitor clinical status (5) Weakness due to cerebrovascular accident (CVA) Status: Chronic (6) Dysphagia as late effect of cerebrovascular accident (CVA) Status: Chronic (7) DM2 (diabetes mellitus, type 2) Status: Chronic Plan: - see above (8) HTN (hypertension) Status: Chronic Plan: - BP is low/normal - Monitor closely Julian Huff MD November 24, 2016 09:52
[2016-11-24] MEDS ORDERED: SERTRALINE HCL 50 MG TAB PO ONE (10:00)
[2016-11-24] MEDS: MEGESTROL ACETATE SUSP 400 MG/10 ML CUP PO SCH (10:09)
--- NOTE | 2016-11-24 14:54 | PD.CARD.PN ---
Subjective Subjective Remarks No CP or SOB, feels fine Objective Medications Current Medications Medications (Trade) Dose Ordered Sig/Gisela Route Start Time Stop Time Status Last Admin (NS Flush) 2 ml UNSCH PRN IVF 11/22/16 00:00 11/23/16 08:41 (Eliquis) 5 mg BID PO 11/22/16 09:00 11/24/16 08:45 (Bumetanide) 2 mg BID@06,14 PO 11/22/16 06:00 11/24/16 14:04 (Theragran) 1 tab DAILY PO 11/22/16 09:00 11/24/16 08:46 (Restoril) 7.5 mg HS PRN PO 11/22/16 02:00 11/23/16 23:39 (Pravachol) 80 mg DAILY PO 11/22/16 09:00 11/24/16 08:46 (Aspirin Chew) 81 mg DAILY CHEW 11/22/16 09:00 11/24/16 08:45 (Aldactone) 25 mg DAILY PO 11/22/16 09:00 11/24/16 08:45 (Tylenol) 650 mg Q4H PRN PO 11/22/16 08:45 11/23/16 23:39 (Zofran Inj) 4 mg Q6H PRN IV 11/22/16 08:45 (Phazyme Chew) 125 mg Q8HR PRN PO 11/22/16 09:00 (Protonix) 40 mg DAILY PO 11/22/16 09:00 11/24/16 08:46 (Pill Splitter) 1 ea UNSCH PRN OTHER 11/23/16 07:45 (Lopressor) 25 mg Q12HR PO 11/23/16 09:00 11/24/16 08:45 (Ultram) 50 mg Q6H PRN PO 11/24/16 03:00 11/24/16 06:38 (Megace Liq) 400 mg DAILY PO 11/24/16 09:00 11/24/16 10:09 (Glucotrol) 5 mg BID@08,17 PO 11/24/16 17:00 (Zoloft) 50 mg DAILY PO 11/25/16 09:00 Vital Signs / I&O Vital Signs Date Time Temp Pulse Resp B/P Pulse Ox O2 Delivery O2 Flow Rate FiO2 11/24/16 14:24 60 5/3/17 13:08 70 11/24/16 12:05 72 11/24/16 11:29 96.9 62 18 97/68 100 11/24/16 11:29 62 11/24/16 10:46 65 11/24/16 09:55 69 11/24/16 08:00 70 11/24/16 07:45 68 11/24/16 07:45 98.2 66 18 104/73 100 11/24/16 06:00 60 11/24/16 05:00 60 11/24/16 04:21 61 97/72 100 11/24/16 04:00 60 11/24/16 03:00 104 11/24/16 02:00 60 11/24/16 01:00 60 11/24/16 00:00 60 11/23/16 23:00 60 11/23/16 23:00 97.4 61 88/70 100 11/23/16 22:00 70 11/23/16 21:00 70 11/23/16 20:00 68 11/23/16 19:00 97.7 70 100/70 100 11/23/16 19:00 70 11/23/16 18:14 71 11/23/16 18:14 98.8 71 18 98/75 100 11/23/16 17:19 98.7 69 18 98/68 100 11/23/16 17:09 70 11/23/16 16:36 98.7 70 18 97/75 100 11/23/16 16:02 72 11/23/16 16:00 98.7 71 18 101/73 100 11/23/16 15:58 98.7 74 18 101/73 100 11/23/16 15:58 72 I/O 11/23/16 11/23/16 11/23/16 11/24/16 11/24/16 11/24/16 07:00 15:00 23:00 07:00 15:00 23:00 Intake Total 240 ml 740 ml 480 ml Output Total 900 ml 700 ml Balance -660 ml 740 ml -220 ml Intake Oral 240 ml 240 ml 480 ml IV Total 500 ml Output Urine Total 900 ml 700 ml # Voids 3 # Bowel Movements 0 Physical Exam GENERAL: In NAD SKIN: Warm and dry. HEAD: Normocephalic. EYES: No scleral icterus. No injection or drainage. NECK: Supple, trachea midline. No JVD or lymphadenopathy. CARDIOVASCULAR: Regular rate and rhythm without murmurs, gallops, or rubs. RESPIRATORY: Breath sounds equal bilaterally. No accessory muscle use. GASTROINTESTINAL: Abdomen soft, non-tender, nondistended. MUSCULOSKELETAL: No cyanosis, or edema. Dressing exchanged, wound w small amt of bleeding Laboratory Laboratory Tests Test 11/22/16 11/23/16 00:30 04:35 Prothrombin Time 14.0 SEC Prothromb Time International 1.3 RATIO Ratio Activated Partial 29.4 SEC Thromboplast Time Total Bilirubin 1.0 MG/DL Aspartate Amino Transf 38 U/L (AST/SGOT) Alanine Aminotransferase 31 U/L (ALT/SGPT) Alkaline Phosphatase 84 U/L Total Creatine Kinase 80 U/L Troponin I 2.14 NG/ML Total Protein 7.9 GM/DL Albumin 3.7 GM/DL White Blood Count 8.6 TH/MM3 Red Blood Count 4.24 MIL/MM3 Hemoglobin 12.9 GM/DL Hematocrit 38.7 % Mean Corpuscular Volume 91.3 FL Mean Corpuscular Hemoglobin 30.4 PG Mean Corpuscular Hemoglobin 33.3 % Concent Red Cell Distribution Width 19.2 % Platelet Count 274 TH/MM3 Mean Platelet Volume 8.6 FL Neutrophils (%) (Auto) 70.4 % Lymphocytes (%) (Auto) 20.1 % Monocytes (%) (Auto) 7.8 % Eosinophils (%) (Auto) 0.9 % Basophils (%) (Auto) 0.8 % Neutrophils # (Auto) 6.1 TH/MM3 Lymphocytes # (Auto) 1.7 TH/MM3 Monocytes # (Auto) 0.7 TH/MM3 Eosinophils # (Auto) 0.1 TH/MM3 Basophils # (Auto) 0.1 TH/MM3 CBC Comment DIFF FINAL Differential Comment Sodium Level 134 MEQ/L Potassium Level 3.8 MEQ/L Chloride Level 99 MEQ/L Carbon Dioxide Level 22.3 MEQ/L Anion Gap 13 MEQ/L Blood Urea Nitrogen 48 MG/DL Creatinine 1.65 MG/DL Estimat Glomerular Filtration 37 ML/MIN Rate Random Glucose 155 MG/DL Calcium Level 9.6 MG/DL Magnesium Level 2.2 MG/DL Imaging Last Impressions Chest X-Ray 11/21/16 0156 Signed Impressions: Service Date/Time: Tuesday, November 22, 2016 00:09 - CONCLUSION: 1. Cardiomegaly. No acute pulmonary disease. Akshat Kat MD Assessment and Plan Problem List: (1) Defibrillator discharge (2) Implantable cardioverter-defibrillator generator end of life (3) Congestive heart failure (4) Cardiomyopathy Assessment and Plan Stable p ICD exchange. Wound w small amt of bleeding, rec to hold Eliquis until no further bleeding observed. ICD interrogation shows nl function, device reprogrammed to decrease the chance of future inappropriate shocks. Will schedule f/u for a wound check and chronic reprogramming. Marilee Pardo MD November 24, 2016 14:54
[2016-11-24] MEDS: glipiZIDE 5 MG TAB PO SCH (17:08)
[2016-11-24] MEDS: TEMAZEPAM 7.5 MG CAP PO PRN (22:30)
[2016-11-25] VITALS (26 sets, daily range): BP systolic 92–108; BP diastolic 64–76; PULSE 60–122; RESP 14–18; TEMP 95–97.6; O2SAT 96–98
[2016-11-25] MEDS: BUMETANIDE 1 MG TAB PO SCH (06:28)
[2016-11-25] MEDS: INSULIN ASPART SUPPLEMENTAL SCALE SQ SCH ×4 (06:28→21:00)
[2016-11-25 06:44] LABS: ANION GAP 13 MEQ/L (5-15); BICARBONATE 21.1 MEQ/L (21.0-32.0); BLOOD UREA NITROGEN 67 MG/DL (7-18); CHLORIDE 98 MEQ/L (98-107); GLOMERULAR FILTRATION RATE 27 ML/MIN (>89); POTASSIUM 4.4 MEQ/L (3.5-5.1); SODIUM (NA) 132 MEQ/L (136-145)
[2016-11-25] MEDS: METOPROLOL TARTRATE 25 MG TAB PO SCH ×2 (09:00→22:45)
[2016-11-25] MEDS: MEGESTROL ACETATE SUSP 400 MG/10 ML CUP PO SCH (09:47)
[2016-11-25] MEDS: PANTOPRAZOLE SOD 40 MG DELAYED RELEASE TAB PO SCH (09:47)
[2016-11-25] MEDS: glipiZIDE 5 MG TAB PO SCH ×2 (09:48→16:20)
[2016-11-25] MEDS: MULTIVITAMIN TAB PO SCH (09:48)
[2016-11-25] MEDS: PRAVASTATIN SOD 80 MG TAB PO SCH (09:48)
[2016-11-25] MEDS: SERTRALINE HCL 50 MG TAB PO SCH (09:48)
[2016-11-25] MEDS: ASPIRIN 81 MG CHEW TAB CHEW SCH (09:48)
[2016-11-25] MEDS ORDERED: APIXABAN 5 MG TABLET PO ONE (10:00)
--- NOTE | 2016-11-25 10:03 | HHI.PR ---
Subjective Remarks not eating much. no bleeding over aicd overnight Objective Vitals left chest aicd site.dry blood. heart reg lung cta abd s/nt ext no edema Vital Signs Date Time Temp Pulse Resp B/P Pulse Ox O2 Delivery O2 Flow Rate FiO2 11/25/16 06:00 60 11/25/16 05:00 60 11/25/16 04:22 97.4 61 14 98/76 97 11/25/16 04:00 60 11/25/16 03:00 60 11/25/16 02:00 62 11/25/16 01:00 122 11/25/16 00:58 97.4 60 14 108/76 98 11/25/16 00:00 60 11/24/16 23:00 94 11/24/16 22:00 124 11/24/16 21:00 88 11/24/16 20:45 97.3 60 14 106/71 98 11/24/16 20:00 60 11/24/16 19:00 64 11/24/16 18:06 79 11/24/16 17:03 60 11/24/16 16:08 59 11/24/16 15:19 60 11/24/16 15:19 98.0 60 18 104/69 99 11/24/16 14:24 60 11/24/16 13:08 70 11/24/16 12:05 72 11/24/16 11:29 96.9 62 18 97/68 100 11/24/16 11:29 62 11/24/16 10:46 65 11/24/16 11/24/16 11/25/16 15:00 23:00 07:00 Intake Total 910 ml 120 ml Output Total 400 ml Balance 910 ml -280 ml Intake Oral 760 ml 120 ml IV Total 150 ml Output Urine Total 400 ml # Voids 3 0 # Bowel Movements 0 0 Result Diagram: 11/23/16 0435 11/25/16 0535 Imaging Last Impressions Chest X-Ray 11/21/16 [id number] Signed Impressions: Service Date/Time: Tuesday, November 22, 2016 00:09 - CONCLUSION: 1. Cardiomegaly. No acute pulmonary disease. Akshat Kat MD A/P Problem List: (1) Defibrillator discharge Status: Acute Plan: - Pt is a 70 y/o with recent history of CVA s/p embolectomy with adventism of antegrade flow on 10/25/16, cardiomyopathy with an EF of 20-25%, and atrial flutter s/p EPS with ablation of A. flutter, right atrial ablation, Biventricular defibrillator reprogramming and cardioversion on 10/15/[address] Velazquez. - She was brought to the ED on 11/21/16 after her AICD had fired twice while she was sleeping. - No symptoms of chest pain or palpitations prior to the firing. - Interrogation of the AICD showed shock x 2 for atrial tach -Discussed with Dr Olson..started metoprolol. will monitor for hypotension. Also apparently battery is end of life and needs changed before d/c home. Dr Pardo exchanged for a new aicd 11/23 -overall pt not eating well. her bun/cr are rising. will hold diuretic and push some po fluids today. will resume her eliquis given high risk of recurrent cva. will hold d/c and monitor bg,bp,bleeding,renal function today...... antidepressant and appetite stim started. PT ordered. nutrition supplement ordered. (2) CKD (chronic kidney disease) stage 3, GFR 30-59 ml/min Status: Chronic Plan: see above (3) Atrial flutter Status: Resolved Plan: - Pt with hx of atrial flutter s/p EPS with ablation of A. flutter, right atrial ablation, Biventricular defibrillator reprogramming and cardioversion on 10/15/[address] Velazquez. - Telemetry (4) Congestive heart failure Status: Chronic Plan: - Home meds resumed - Last 2D echo reviewed above, EF 20-25% - Monitor clinical status (5) Weakness due to cerebrovascular accident (CVA) Status: Chronic (6) Dysphagia as late effect of cerebrovascular accident (CVA) Status: Chronic (7) DM2 (diabetes mellitus, type 2) Status: Chronic Plan: - see above (8) HTN (hypertension) Status: Chronic Plan: - BP is low/normal - Monitor closely Julian Huff MD November 25, 2016 10:03
[2016-11-25] MEDS ORDERED: SODIUM CHLOR 0.9% 250 ML INJ 250 ML IV ONE (10:15)
[2016-11-25 18:51] LABS: HEMOGLOBIN A1b 2.2 %; HEMOGLOBIN Ao 81.8 %; HEMOGLOBIN LA1C 2.2 %; HEMOGLOBIN P3 6.4 %
[2016-11-25] MEDS: APIXABAN 5 MG TABLET PO SCH (22:46)
[2016-11-26] VITALS (23 sets, daily range): BP systolic 101–112; BP diastolic 47–79; PULSE 60–134; RESP 16–18; TEMP 97.4–98.2; O2SAT 95–99
[2016-11-26] MEDS: TEMAZEPAM 7.5 MG CAP PO PRN (01:17)
[2016-11-26] MEDS: INSULIN ASPART SUPPLEMENTAL SCALE SQ SCH ×4 (05:47→21:00)
[2016-11-26 07:40] LABS: BICARBONATE 20.2 MEQ/L (21.0-32.0); POTASSIUM 4.2 MEQ/L (3.5-5.1)
--- NOTE | 2016-11-26 08:43 | HHI.PR ---
Subjective Remarks Pt not eating much per nursing. family reports pt is giving up. Objective Vitals heart reg lung cta abd /snt ext no edema Vital Signs Date Time Temp Pulse Resp B/P Pulse Ox O2 Delivery O2 Flow Rate FiO2 11/26/16 04:54 98.2 60 16 101/63 99 11/26/16 02:00 60 11/26/16 01:00 60 11/26/16 00:50 97.4 60 16 108/47 95 11/26/16 00:00 60 11/25/16 23:00 70 11/25/16 22:52 97.4 61 16 99/71 96 11/25/16 22:00 112 11/25/16 21:00 104 11/25/16 20:00 70 11/25/16 19:00 60 11/25/16 16:00 97.6 60 18 92/64 98 11/25/16 16:00 100 11/25/16 15:00 60 11/25/16 14:00 60 11/25/16 13:00 60 11/25/16 12:35 95.0 109 16 108/73 11/25/16 12:00 60 11/25/16 11:00 92 11/25/16 11:00 62 11/25/16 10:00 96 11/25/16 09:00 86 11/25/16 11/25/16 11/26/16 15:00 23:00 07:00 Intake Total 250 ml Output Total 100 ml 350 ml Balance -100 ml -100 ml Intake Oral 250 ml IV Total 0 ml Output Urine Total 100 ml 350 ml # Voids 1 # Bowel Movements 0 Result Diagram: 11/23/16 0435 11/26/16 0534 Imaging Last Impressions Chest X-Ray 11/21/16 3736 Signed Impressions: Service Date/Time: Tuesday, November 22, 2016 00:09 - CONCLUSION: 1. Cardiomegaly. No acute pulmonary disease. Akshat Kat MD A/P Problem List: (1) Defibrillator discharge Status: Acute Plan: - Pt is a 70 y/o with recent history of CVA s/p embolectomy with restorationist of antegrade flow on 10/25/16, cardiomyopathy with an EF of 20-25%, and atrial flutter s/p EPS with ablation of A. flutter, right atrial ablation, Biventricular defibrillator reprogramming and cardioversion on 10/15/[address] Velazquez. - She was brought to the ED on 11/21/16 after her AICD had fired twice while she was sleeping. - No symptoms of chest pain or palpitations prior to the firing. - Interrogation of the AICD showed shock x 2 for atrial tach -Discussed with Dr Olson..started metoprolol. will monitor for hypotension. Also apparently battery is end of life and needs changed before d/c home. Dr Pardo exchanged for a new aicd 11/23 -overall pt not eating well. her bun/cr are rising. will hold diuretic and push some po fluids today. will resume her eliquis given high risk of recurrent cva. will hold d/c and monitor bg,bp,bleeding,renal function antidepressant and appetite stim started. PT ordered. nutrition supplement ordered. (2) CKD (chronic kidney disease) stage 3, GFR 30-59 ml/min Status: Chronic Plan: see above (3) Atrial flutter Status: Resolved Plan: - Pt with hx of atrial flutter s/p EPS with ablation of A. flutter, right atrial ablation, Biventricular defibrillator reprogramming and cardioversion on 10/15/[address] Velazquez. - Telemetry (4) Congestive heart failure Status: Chronic Plan: - Home meds resumed - Last 2D echo reviewed above, EF 20-25% - Monitor clinical status (5) Weakness due to cerebrovascular accident (CVA) Status: Chronic (6) Dysphagia as late effect of cerebrovascular accident (CVA) Status: Chronic (7) DM2 (diabetes mellitus, type 2) Status: Chronic Plan: - see above (8) HTN (hypertension) Status: Chronic Plan: - BP is low/normal - Monitor closely Julian Huff MD November 26, 2016 08:43
[2016-11-26] MEDS ORDERED: SODIUM CHLOR 0.9% 250 ML INJ 250 ML IV ONE (08:45)
--- NOTE | 2016-11-26 08:52 | PD.CARD.PN ---
Subjective Subjective Remarks Doing well. Pacer function normal Objective Vital Signs / I&O Vital Signs Date Time Temp Pulse Resp B/P Pulse Ox O2 Delivery O2 Flow Rate FiO2 11/26/16 04:54 98.2 60 16 101/63 99 11/26/16 02:00 60 11/26/16 01:00 60 11/26/16 00:50 97.4 60 16 108/47 95 11/26/16 00:00 60 11/25/16 23:00 70 11/25/16 22:52 97.4 61 16 99/71 96 11/25/16 22:00 112 11/25/16 21:00 104 11/25/16 20:00 70 11/25/16 19:00 60 11/25/16 16:00 97.6 60 18 92/64 98 11/25/16 16:00 100 11/25/16 15:00 60 11/25/16 14:00 60 11/25/16 13:00 60 11/25/16 12:35 95.0 109 16 108/73 11/25/16 12:00 60 11/25/16 11:00 92 11/25/16 11:00 62 11/25/16 10:00 96 11/25/16 09:00 86 I/O 11/25/16 11/25/16 11/25/16 11/26/16 11/26/16 11/26/16 07:00 15:00 23:00 07:00 15:00 23:00 Intake Total 120 ml 250 ml Output Total 400 ml 100 ml 350 ml Balance -280 ml -100 ml -100 ml Intake Oral 120 ml 250 ml IV Total 0 ml Output Urine Total 400 ml 100 ml 350 ml # Voids 0 1 # Bowel Movements 0 0 Laboratory Laboratory Tests Test 11/26/16 05:34 Sodium Level 130 MEQ/L Potassium Level 4.2 MEQ/L Chloride Level 97 MEQ/L Carbon Dioxide Level 20.2 MEQ/L Anion Gap 13 MEQ/L Blood Urea Nitrogen 73 MG/DL Creatinine 2.07 MG/DL Estimat Glomerular Filtration 29 ML/MIN Rate Random Glucose 97 MG/DL Calcium Level 9.2 MG/DL Assessment and Plan Problem List: (1) Defibrillator discharge Assessment and Plan: Generator change uneventful. No further firing. OK to D/C home (2) Implantable cardioverter-defibrillator generator end of life (3) Congestive heart failure (4) Cardiomyopathy Assessment and Plan Pacer/AICD at [facility]. Rupal consult Dr. Pardo for generator change Akshat Olson MD November 26, 2016 08:52
[2016-11-26] MEDS: ASPIRIN 81 MG CHEW TAB CHEW SCH (08:58)
[2016-11-26] MEDS: PANTOPRAZOLE SOD 40 MG DELAYED RELEASE TAB PO SCH (08:58)
[2016-11-26] MEDS: glipiZIDE 5 MG TAB PO SCH ×2 (08:58→16:51)
[2016-11-26] MEDS: MULTIVITAMIN TAB PO SCH (08:58)
[2016-11-26] MEDS: PRAVASTATIN SOD 80 MG TAB PO SCH (08:58)
[2016-11-26] MEDS: METOPROLOL TARTRATE 25 MG TAB PO SCH ×2 (08:58→22:42)
[2016-11-26] MEDS: SERTRALINE HCL 50 MG TAB PO SCH (08:58)
[2016-11-26] MEDS: APIXABAN 5 MG TABLET PO SCH ×2 (08:59→22:43)
[2016-11-26] MEDS: MEGESTROL ACETATE SUSP 400 MG/10 ML CUP PO SCH (08:59)
[2016-11-26] MEDS: traMADol HCL 50 MG TAB PO PRN (12:08)
[2016-11-27] VITALS (27 sets, daily range): BP systolic 101–124; BP diastolic 60–81; PULSE 52–118; RESP 16; TEMP 97.4–98.4; O2SAT 97–100
[2016-11-27] MEDS: INSULIN ASPART SUPPLEMENTAL SCALE SQ SCH ×4 (07:00→21:00)
[2016-11-27 08:11] LABS: BICARBONATE 18.5 MEQ/L (21.0-32.0); POTASSIUM 4.6 MEQ/L (3.5-5.1)
--- NOTE | 2016-11-27 10:16 | HHI.PR ---
Subjective Remarks seems to be eating a little more Objective Vitals heart reg lung cta abd s/nt ext no edema left chest aicd site noted ..no active bleeding. Vital Signs Date Time Temp Pulse Resp B/P Pulse Ox O2 Delivery O2 Flow Rate FiO2 11/27/16 06:06 98.4 69 16 101/77 98 11/27/16 06:00 76 11/27/16 05:00 60 11/27/16 04:00 68 11/27/16 03:00 88 11/27/16 02:00 64 11/27/16 01:34 98.1 60 16 101/73 98 11/27/16 01:00 52 11/27/16 00:00 118 11/26/16 23:00 134 11/26/16 22:00 128 11/26/16 21:00 60 11/26/16 21:00 97.4 67 16 112/75 97 11/26/16 20:00 106 11/26/16 19:00 106 11/26/16 18:00 106 11/26/16 18:00 126 11/26/16 17:11 104 11/26/16 16:00 97.4 64 18 110/79 97 11/26/16 15:00 70 11/26/16 14:00 62 11/26/16 13:00 76 11/26/16 12:06 60 11/26/16 12:00 97.7 60 18 110/65 98 11/26/16 11:00 60 11/26/16 11/26/16 11/27/16 15:00 23:00 07:00 Intake Total 240 ml Balance 240 ml Intake Oral 240 ml IV Total 0 ml # Voids 2 # Bowel Movements 0 Result Diagram: 11/23/16 0435 11/27/16 0633 Imaging Last Impressions Chest X-Ray 11/21/16 [id number] Signed Impressions: Service Date/Time: Tuesday, November 22, 2016 00:09 - CONCLUSION: 1. Cardiomegaly. No acute pulmonary disease. Akshat Kat MD A/P Problem List: (1) Defibrillator discharge Status: Acute Plan: - Pt is a 70 y/o with recent history of CVA s/p embolectomy with roman catholic of antegrade flow on 10/25/16, cardiomyopathy with an EF of 20-25%, and atrial flutter s/p EPS with ablation of A. flutter, right atrial ablation, Biventricular defibrillator reprogramming and cardioversion on 10/15/[address] Velazquez. - She was brought to the ED on 11/21/16 after her AICD had fired twice while she was sleeping. - No symptoms of chest pain or palpitations prior to the firing. - Interrogation of the AICD showed shock x 2 for atrial tach -Discussed with Dr Olson..started metoprolol. will monitor for hypotension. Also apparently battery is end of life and needs changed before d/c home. Dr Pardo exchanged for a new aicd 11/23 -overall pt not eating well. her bun/cr have been rising and na dropping..held diuretic for few days but will resume and monitor closely. seemed to eat better but still high risk of readmission her eliquis given high risk of recurrent cva. will hold d/c and monitor bg,bp,bleeding,renal function antidepressant and appetite stim started. PT ordered. nutrition supplement ordered. (2) CKD (chronic kidney disease) stage 3, GFR 30-59 ml/min Status: Chronic Plan: see above (3) Atrial flutter Status: Resolved Plan: - Pt with hx of atrial flutter s/p EPS with ablation of A. flutter, right atrial ablation, Biventricular defibrillator reprogramming and cardioversion on 10/15/[address] Velazquez. - Telemetry (4) Congestive heart failure Status: Chronic Plan: - Home meds resumed - Last 2D echo reviewed above, EF 20-25% - Monitor clinical status (5) Weakness due to cerebrovascular accident (CVA) Status: Chronic (6) Dysphagia as late effect of cerebrovascular accident (CVA) Status: Chronic (7) DM2 (diabetes mellitus, type 2) Status: Chronic Plan: - see above (8) HTN (hypertension) Status: Chronic Plan: - BP is low/normal - Monitor closely Julian Huff MD November 27, 2016 10:16
[2016-11-27] MEDS: PANTOPRAZOLE SOD 40 MG DELAYED RELEASE TAB PO SCH (10:50)
[2016-11-27] MEDS: ASPIRIN 81 MG CHEW TAB CHEW SCH (10:50)
[2016-11-27] MEDS: APIXABAN 5 MG TABLET PO SCH ×2 (10:50→22:49)
[2016-11-27] MEDS: glipiZIDE 10 MG TAB PO SCH (10:50)
[2016-11-27] MEDS: MEGESTROL ACETATE SUSP 400 MG/10 ML CUP PO SCH (10:50)
[2016-11-27] MEDS: SERTRALINE HCL 50 MG TAB PO SCH (10:51)
[2016-11-27] MEDS: BUMETANIDE 1 MG TAB PO SCH ×2 (10:51→17:09)
[2016-11-27] MEDS: MULTIVITAMIN TAB PO SCH (10:51)
[2016-11-27] MEDS: PRAVASTATIN SOD 80 MG TAB PO SCH (10:51)
[2016-11-27] MEDS: METOPROLOL TARTRATE 25 MG TAB PO SCH ×2 (10:52→22:49)
[2016-11-27] MEDS: glipiZIDE 5 MG TAB PO SCH (17:09)
[2016-11-27] MEDS ORDERED: MEGESTROL ACETATE SUSP 400 MG/10 ML CUP PO ONE (19:00)
[2016-11-28] VITALS (26 sets, daily range): BP systolic 103–109; BP diastolic 73–75; PULSE 53–126; RESP 14–16; TEMP 97.7–98.3; O2SAT 97–100
[2016-11-28 05:58] LABS: BICARBONATE 20.1 MEQ/L (21.0-32.0); POTASSIUM 4.8 MEQ/L (3.5-5.1)
[2016-11-28] MEDS: INSULIN ASPART SUPPLEMENTAL SCALE SQ SCH ×4 (06:41→21:00)
[2016-11-28] MEDS: MEGESTROL ACETATE SUSP 400 MG/10 ML CUP PO SCH ×2 (08:47→17:21)
[2016-11-28] MEDS: APIXABAN 5 MG TABLET PO SCH ×2 (08:47→22:47)
[2016-11-28] MEDS: SPIRONOLACTONE 25 MG TAB PO SCH (08:47)
[2016-11-28] MEDS: glipiZIDE 10 MG TAB PO SCH (08:47)
[2016-11-28] MEDS: MULTIVITAMIN TAB PO SCH (08:48)
[2016-11-28] MEDS: BUMETANIDE 1 MG TAB PO SCH ×2 (08:48→17:21)
[2016-11-28] MEDS: SERTRALINE HCL 50 MG TAB PO SCH (08:48)
[2016-11-28] MEDS: PRAVASTATIN SOD 80 MG TAB PO SCH (08:48)
[2016-11-28] MEDS: PANTOPRAZOLE SOD 40 MG DELAYED RELEASE TAB PO SCH (08:48)
[2016-11-28] MEDS: ASPIRIN 81 MG CHEW TAB CHEW SCH (08:48)
[2016-11-28] MEDS: METOPROLOL TARTRATE 25 MG TAB PO SCH ×2 (08:48→22:47)
--- NOTE | 2016-11-28 11:31 | HHI.PR ---
Subjective Remarks reportedly at a little better. Objective Vitals heart reg lung cta abd snt ext no edema left cw aicd Vital Signs Date Time Temp Pulse Resp B/P Pulse Ox O2 Delivery O2 Flow Rate FiO2 11/28/16 08:00 97.8 59 16 108/74 100 11/28/16 08:00 60 11/28/16 06:14 98.3 60 16 109/73 100 11/28/16 06:00 60 11/28/16 05:00 60 11/28/16 04:00 60 11/28/16 03:00 67 11/28/16 02:00 60 11/28/16 01:00 126 11/28/16 00:00 78 11/27/16 23:51 98.4 60 16 117/80 98 11/27/16 23:00 60 11/27/16 22:00 60 11/27/16 21:00 98.4 60 16 124/60 97 11/27/16 21:00 60 11/27/16 20:00 60 11/27/16 19:00 60 11/27/16 18:00 60 11/27/16 17:00 58 11/27/16 16:00 60 11/27/16 16:00 61 16 103/73 97 11/27/16 15:00 62 11/27/16 14:00 60 11/27/16 13:00 60 11/27/16 12:00 97.4 60 16 105/80 98 11/27/16 12:00 60 11/27/16 11/27/16 11/28/16 15:00 23:00 07:00 Intake Total 240 ml 390 ml Output Total 400 ml 250 ml Balance -160 ml 140 ml Intake Oral 240 ml 390 ml IV Total 0 ml Output Urine Total 400 ml 250 ml # Voids 2 0 # Bowel Movements 0 Result Diagram: 11/28/16 0344 Imaging Last Impressions Chest X-Ray 11/21/16 [id number] Signed Impressions: Service Date/Time: Tuesday, November 22, 2016 00:09 - CONCLUSION: 1. Cardiomegaly. No acute pulmonary disease. Akshat Kat MD A/P Problem List: (1) Defibrillator discharge Status: Acute Plan: - Pt is a 70 y/o with recent history of CVA s/p embolectomy with bahai of antegrade flow on 10/25/16, cardiomyopathy with an EF of 20-25%, and atrial flutter s/p EPS with ablation of A. flutter, right atrial ablation, Biventricular defibrillator reprogramming and cardioversion on 10/15/[address] Velazquez. - She was brought to the ED on 11/21/16 after her AICD had fired twice while she was sleeping. - No symptoms of chest pain or palpitations prior to the firing. - Interrogation of the AICD showed shock x 2 for atrial tach -Discussed with Dr Olson..started metoprolol. will monitor for hypotension. Also apparently battery is end of life and needs changed before d/c home. Dr Pardo exchanged for a new aicd 11/23 -overall pt not eating well. her bun/cr have been rising and na dropping..held diuretic for few days but will resume and monitor closely. seemed to eat better but still high risk of readmission her eliquis given high risk of recurrent cva. will hold d/c and monitor bg,bp,bleeding,renal function over the weekend antidepressant and appetite stim started. PT ordered. nutrition supplement ordered. If bp, cr,na stable then plan for d/c tomorrow. (2) CKD (chronic kidney disease) stage 3, GFR 30-59 ml/min Status: Chronic Plan: see above (3) Atrial flutter Status: Resolved Plan: - Pt with hx of atrial flutter s/p EPS with ablation of A. flutter, right atrial ablation, Biventricular defibrillator reprogramming and cardioversion on 10/15/[address] Velazquez. - Telemetry (4) Congestive heart failure Status: Chronic Plan: - Home meds resumed - Last 2D echo reviewed above, EF 20-25% - Monitor clinical status (5) Weakness due to cerebrovascular accident (CVA) Status: Chronic (6) Dysphagia as late effect of cerebrovascular accident (CVA) Status: Chronic (7) DM2 (diabetes mellitus, type 2) Status: Chronic Plan: - see above (8) HTN (hypertension) Status: Chronic Plan: - BP is low/normal - Monitor closely Julian Huff MD November 28, 2016 11:31
[2016-11-28] MEDS: glipiZIDE 5 MG TAB PO SCH (15:46)
[2016-11-28] MEDS: TEMAZEPAM 7.5 MG CAP PO PRN (22:47)
[2016-11-29] VITALS (13 sets, daily range): BP systolic 95–108; BP diastolic 66–79; PULSE 54–63; RESP 16; TEMP 97.8–98.2; O2SAT 98–100
[2016-11-29 06:48] LABS: BICARBONATE 23.6 MEQ/L (21.0-32.0); POTASSIUM 4.1 MEQ/L (3.5-5.1)
[2016-11-29] MEDS: INSULIN ASPART SUPPLEMENTAL SCALE SQ SCH ×2 (07:00→11:00)
[2016-11-29] MEDS: BUMETANIDE 1 MG TAB PO SCH (08:51)
[2016-11-29] MEDS: PANTOPRAZOLE SOD 40 MG DELAYED RELEASE TAB PO SCH (08:51)
[2016-11-29] MEDS: SERTRALINE HCL 50 MG TAB PO SCH (08:51)
[2016-11-29] MEDS: METOPROLOL TARTRATE 25 MG TAB PO SCH (08:51)
[2016-11-29] MEDS: MEGESTROL ACETATE SUSP 400 MG/10 ML CUP PO SCH (08:51)
[2016-11-29] MEDS: MULTIVITAMIN TAB PO SCH (08:51)
[2016-11-29] MEDS: APIXABAN 5 MG TABLET PO SCH (08:51)
[2016-11-29] MEDS: SPIRONOLACTONE 25 MG TAB PO SCH (08:51)
[2016-11-29] MEDS: PRAVASTATIN SOD 80 MG TAB PO SCH (08:51)
[2016-11-29] MEDS: ASPIRIN 81 MG CHEW TAB CHEW SCH (08:52)
[2016-11-29] MEDS: glipiZIDE 10 MG TAB PO SCH (08:52)
--- NOTE | 2016-11-29 09:40 | HHI.FF ---
Face to Face Verification Diagnosis: (1) Implantable cardioverter-defibrillator generator end of life (2) Cardiomyopathy (3) Weakness due to cerebrovascular accident (CVA) (4) DM2 (diabetes mellitus, type 2) (5) CKD (chronic kidney disease) stage 3, GFR 30-59 ml/min (6) HTN (hypertension) (7) Atrial flutter Physical Therapy Order: Evaluate and Treat, Improve ambulation, Strength and gait training Home Health Nursing Order: Medical education Signs/symptoms of disease process CHF education Medication education-adverse effect Nursing assessment with vital signs I have seen patient Yamel Salinas on 11/29/16. My clinical findings support the need for the requested home health care services because: Ltd mobility - disease progression Deconditioned w/ increased weakness Med compliance is questionable Limited ability to care for self Need for psychosocial assistance I certify that my clinical findings support that this patient is homebound because: Impaired cognitive ability/safety Unsafe to leave home unassisted Need for psychosocial assistance Unable to use public transportation Poor cardiac reserve Yo Suraez DO November 29, 2016 09:40
[2016-11-29] MEDS ORDERED: GLIP10TA6 PO (09:50)
[2016-11-29] MEDS ORDERED: METO25TA3 PO (09:50)
[2016-11-29] MEDS ORDERED: ZOLO50TA PO (09:50)
[2016-11-29] MEDS ORDERED: MEGE40SU PO (09:50)
--- NOTE | 2016-11-29 10:01 | HHI.DS ---
Discharge Summary Admission Date November 22, 2016 at 01:48 Discharge Date: November 29, 2016 Admitting Diagnosis pacemaker fire/elevated troponin (1) Defibrillator discharge Diagnosis: Principal (2) CKD (chronic kidney disease) stage 3, GFR 30-59 ml/min Diagnosis: Principal (3) Atrial flutter Diagnosis: Secondary (4) Congestive heart failure Diagnosis: Secondary (5) Weakness due to cerebrovascular accident (CVA) Diagnosis: Secondary (6) Dysphagia as late effect of cerebrovascular accident (CVA) Diagnosis: Secondary (7) DM2 (diabetes mellitus, type 2) Diagnosis: Secondary (8) HTN (hypertension) Diagnosis: Secondary Consultants Dr. Pardo, Cardiology Dr. Akshat Olson, Cardiology Brief History Ms. Salinas is a 70 y/o AAF with recent history of CVA s/p angiogram and was found to have a large clot at the ICA, M1 segment, s/p embolectomy with catholic of antegrade flow on 10/25/16, hypertension, coronary artery disease, CKD stage 3, diabetes, cardiomyopathy with an EF of 20-25%, and atrial flutter s /p EPS with ablation of A. flutter, right atrial ablation, Biventricular defibrillator reprogramming and cardioversion on 10/15/[address] Velazquez. She presented to the ED at [facility] on 11/21/16 after her AICD fired twice last night. Pt reports that this woke her up from sleep. She had not been symptomatic with any chest pain, palpitations or SOB prior to the firing of her AICD. According to the ED notes the pt was tachycardic en route to the hospital and was given Cardizem. Pts HR was 111 when she arrived to the ED and this has stabilized. Her troponin was elevated at 2.14 likely secondary to her ICD firing. Pt denies any new headache, SOB, palpitations, nausea/vomiting. She states that she was having some lower abdominal discomfort yesterday evening after she had eaten some spaghetti pasta. She took some MOM and prune juice because she thought that she needed to have a BM but so far has not produced a BM. She did pass some gas and the abd discomfort has resolved. Cardiology is following and interrogation of the AICD has been ordered. CBC/BMP: 11/29/16 0548 Significant Findings Laboratory Tests Test 11/27/16 11/28/16 11/29/16 06:33 03:44 05:48 Sodium Level 128 MEQ/L 128 MEQ/L 133 MEQ/L (136-145) (136-145) (136-145) Chloride Level 96 MEQ/L 95 MEQ/L (98-107) (98-107) Carbon Dioxide Level 18.5 MEQ/L 20.1 MEQ/L (21.0-32.0) (21.0-32.0) Blood Urea Nitrogen 75 MG/DL (7-18) 72 MG/DL (7-18) 65 MG/DL (7-18) Creatinine 1.86 MG/DL 1.89 MG/DL 1.57 MG/DL (0.50-1.00) (0.50-1.00) (0.50-1.00) Estimat Glomerular Filtration 33 ML/MIN (>89) 32 ML/MIN (>89) 40 ML/MIN (>89) Rate Random Glucose 150 MG/DL 147 MG/DL 65 MG/DL (74-106) (74-106) (74-106) Hospital Course (1) Defibrillator discharge Status: Acute Plan: - Pt is a 70 y/o with recent history of CVA s/p embolectomy with catholic of antegrade flow on 10/25/16, cardiomyopathy with an EF of 20-25%, and atrial flutter s/p EPS with ablation of A. flutter, right atrial ablation, Biventricular defibrillator reprogramming and cardioversion on 10/15/[address] Velazquez. - She was brought to the ED on 11/21/16 after her AICD had fired twice while she was sleeping. - No symptoms of chest pain or palpitations prior to the firing. - Interrogation of the AICD showed shock x 2 for atrial tach - Case discussed between Dr. Olson and Dr. Huff. - Pt started on metoprolol, blood pressure have been overall stable - AICD's batter was at end off life - On 11/23/16, Placement of new [employer] dual chamber biV defibrillator performed by Dr. Pardo -overall pt not eating well. her bun/cr have been rising and na dropping - diuretics were held for a few days with improvement - diuretics were resumed and electrolytes & renal function remained stable - repeat BMP, Mag on 5/15/17 with HHC with results to pt's PCP, Dr. Krupa Zamorano - Pt has depression and poor appetite - Pt started on megace and zoloft - Pt is at high risk of readmission and further decline - Pt offered SNF upon discharge, but she refused - I have arranged for HHC and home PT - Pt resumed on eliquis d/t her high risk of recurrent CVA (2) CKD (chronic kidney disease) stage 3, GFR 30-59 ml/min Status: Chronic Plan: see above (3) Atrial flutter Status: Resolved Plan: - Pt with hx of atrial flutter s/p EPS with ablation of A. flutter, right atrial ablation, Biventricular defibrillator reprogramming and cardioversion on 10/15/[address] Velazquez. - Telemetry (4) Congestive heart failure Status: Chronic Plan: - Home meds resumed - Last 2D echo reviewed above, EF 20-25% - Monitor clinical status (5) Weakness due to cerebrovascular accident (CVA) Status: Chronic (6) Dysphagia as late effect of cerebrovascular accident (CVA) Status: Chronic (7) DM2 (diabetes mellitus, type 2) - metformin stopped d/t elevated renal function - pt started on glucotrol - pt to f/u with her PCP in 1 week (8) HTN (hypertension) Status: Chronic Plan: - BP is low/normal - Monitor closely Pt Condition on Discharge: Stable Discharge Disposition: Disch w/ Home Health Serv Discharge Instructions DIET: Follow Instructions for: Heart Healthy Diet, Diabetic Diet Activities you can perform: Weight Bearing as Cu[place]em[place] Follow up Referrals: Cardiology - 1 Week with Marilee Pardo MD Cardiology - [address] Akshat Olson PCP Follow-up - [address] Krupa Zamorano New Medications: Glipizide (Glipizide) 10 Mg Tab 10 MG PO DAILYAC 10mg before morning meal and 5mg before evening meal DISP: 1 month supply DM #30 Ref 0 TAB Megestrol Liq (Megestrol Liq) 40 Mg/Ml Susp 400 MG PO BID@ anorexia #60 Ref 0 MG Metoprolol Tartrate (Metoprolol Tartrate) 25 Mg Tab 25 MG PO Q12HR atrial fibrillaltion #60 Ref 0 TAB Sertraline (Zoloft) 50 Mg Tab 50 MG PO DAILY depression #30 Ref 0 TAB Continued Medications: Apixaban (Eliquis) 5 Mg Tab 5 MG PO BID Blood Clot Prevention #60 Ref 1 TAB Bumetanide (Bumetanide) 1 Mg Tab 2 MG PO BID@06,14 #120 Ref 1 TAB Multiple Vitamin (Multi Vitamin) 1 Tab Tab 1 TAB PO DAILY #30 Ref 1 TAB Simvastatin (Zocor) 40 Mg Tab 40 MG PO DAILY Cholesterol Management #30 Ref 1 TAB Temazepam (Restoril) 7.5 Mg Cap 7.5 MG PO HS PRN sleep #30 CAP ([Aspirin Chew]) 81 MG CHEW 81 MG CHEW DAILY cva #30 Ref 1 TAB.CHEW ([Spironolactone]) 25 MG TAB 25 MG PO DAILY #30 Ref 1 TAB Discontinued Medications: Metformin (Metformin) 500 Mg Tab 250 MG PO BID With meals Blood Sugar Management #60 Ref 1 TAB Yo Suarez DO November 29, 2016 10:01
--- NOTE | 2016-11-29 12:14 | HHI.DCPOC ---
Discharge Care Plan Diagnosis: (1) Weakness due to cerebrovascular accident (CVA) (2) Implantable cardioverter-defibrillator generator end of life (3) Cardiomyopathy (4) DM2 (diabetes mellitus, type 2) (5) HTN (hypertension) (6) CKD (chronic kidney disease) stage 3, GFR 30-59 ml/min Goals to Promote Your Health * To prevent worsening of your condition and complications * To maintain your health at the optimal level Directions to Meet Your Goals Take your medications as prescribed Follow your dietary instruction Follow activity as directed Keep your appointments as scheduled Take your immunizations and boosters as scheduled If your symptoms worsen call your PCP, if no PCP go to Urgent Care Center or Emergency Room Smoking is Dangerous to Your Health. Avoid second hand smoke Call the 24-hour hour crisis hotline for domestic abuse at Yo Suarez DO November 29, 2016 12:13
--- NOTE | 2017-01-10 17:34 | PD.CARD.PN ---
Objective Physical Exam GENERAL: In NAD SKIN: Warm and dry. HEAD: Normocephalic. EYES: No scleral icterus. No injection or drainage. NECK: Supple, trachea midline. No JVD or lymphadenopathy. CARDIOVASCULAR: Regular rate and rhythm without murmurs, gallops, or rubs. RESPIRATORY: Breath sounds equal bilaterally. No accessory muscle use. GASTROINTESTINAL: Abdomen soft, non-tender, nondistended. MUSCULOSKELETAL: No cyanosis, or edema. Dressing exchanged, wound w small amt of bleeding Assessment and Plan Problem List: (1) Defibrillator discharge (2) Implantable cardioverter-defibrillator generator end of life (3) Congestive heart failure (4) Cardiomyopathy Assessment and Plan Stable p ICD exchange. Wound w small amt of bleeding, rec to hold Eliquis until no further bleeding observed. ICD interrogation shows nl function, device reprogrammed to decrease the chance of future inappropriate shocks. Will schedule f/u for a wound check and chronic reprogramming. The patient has not been started on RUPALI inhibitor / ARB due to both significant (worsened) renal insufficiency and hypotension. Marilee Pardo MD Jan 10, 2017 17:34
== END 2016-11-29 11:37 | disposition home health service (06) ==
LOC: NEPC 23:41 → NEDA 11-22 01:48 → NEDH 11-22 06:56 → HCIS 11-22 10:56
PROVIDERS: ADMIT Hospitalist; ATTEND Hospitalist
DX: Z45.02 Encounter for adjustment and management of automatic implantable cardiac defibrillator (principal); I48.92 Unspecified atrial flutter; R74.8 Abnormal levels of other serum enzymes; I13.0 Hypertensive heart and chronic kidney disease with heart failure and stage 1 through stage 4 chronic kidney disease, or unspecified chronic kidney disease; N18.3 Chronic kidney disease, stage 3 (moderate); I50.22 Chronic systolic (congestive) heart failure; E11.22 Type 2 diabetes mellitus with diabetic chronic kidney disease; I34.0 Nonrheumatic mitral (valve) insufficiency; I07.1 Rheumatic tricuspid insufficiency; R94.31 Abnormal electrocardiogram [ECG] [EKG]; R29.898 Other symptoms and signs involving the musculoskeletal system; I69.359 Hemiplegia and hemiparesis following cerebral infarction affecting unspecified side; I69.391 Dysphagia following cerebral infarction; R13.10 Dysphagia, unspecified; I69.320 Aphasia following cerebral infarction; I25.5 Ischemic cardiomyopathy; R00.0 Tachycardia, unspecified; J44.9 Chronic obstructive pulmonary disease, unspecified; E78.5 Hyperlipidemia, unspecified; J45.909 Unspecified asthma, uncomplicated; E78.00 Pure hypercholesterolemia, unspecified; I25.10 Atherosclerotic heart disease of native coronary artery without angina pectoris; Z95.810 Presence of automatic (implantable) cardiac defibrillator; Z79.899 Other long term (current) drug therapy; Z79.84 Long term (current) use of oral hypoglycemic drugs
CPT/HCPCS: 33264; 71010; 80048; 80053; 82550; 82948; 83036; 83735; 84484; 85025; 85610; 85730; 93005; 93641; 97110; 97162; 97530; 99285; C1882; G0378; G8987; G8988; J0690; J1815; J2250; J3010; J3370; J7050

== ENCOUNTER 2017-01-17 15:38 | Inpatient (IN) | payer MEDICARE ==
[~2017-01-17] VITALS: Ht 162.6 cm; Wt 65.0 kg
[2017-01-17] VITALS (8 sets, daily range): BP systolic 90–137; BP diastolic 64–86; PULSE 91–140; RESP 14–24; TEMP 98–98.7; O2SAT 96–100
[~2017-01-17 15:38] MED LIST changes: +GLIP10TA6 PO; +MEGE40SU PO; -METF500T PO; +METO25TA3 PO; +ZOLO50TA PO
[2017-01-17] MEDS ORDERED: SODIUM CHLOR 0.9% 1000 ML INJ 1,000 ML IV ONE (16:00)
[2017-01-17] MEDS ORDERED: SODIUM CHLORID 0.9% 500 ML INJ 500 ML IV ONE ×2 (16:15→16:30)
--- NOTE | 2017-01-17 16:16 | RADRPT ---
EXAM DATE/TIME: 01/17/2017 16:07 [place] COMPARISON: CHEST SINGLE AP, November 11, 2016, 14:26. CHEST SINGLE AP, November 22, 2016, 0:09. INDICATIONS : Vomiting MEDICAL HISTORY : Myocardial infarction. SURGICAL HISTORY : Pacemaker. Coronary artery disease. ENCOUNTER: Initial ACUITY: 1 day PAIN SCORE: 0/10 LOCATION: Bilateral chest FINDINGS: Portable AP view of the chest demonstrates stable enlargement of the cardiac silhouette with abnormal cardiac shape. There is calcification of aorta. Left chest wall cardiac pacing device/AICD remains p resent. There is a left basilar pleural-parenchymal opacity. No pneumothorax is identified. The bones and soft tissues demonstrate no acute finding. CONCLUSION: 1. Left basilar opacity may represent atelectasis, consolidation, and/or pleural effusion. 2. Stable enlargement of the cardiac silhouette within abnormal cardiac shape. Mello Dorman MD on January 17, 2017 at 16:11 Board Certified Radiologist. This report was verified electronically.
[2017-01-17] MEDS ORDERED: MULTTAB67 PO (16:24)
[2017-01-17 16:28] LABS: BLOOD GAS BASE EXCESS -16.9 mmol/L (-2-2); BLOOD GAS HCO3 8 mmol/L (22-26); BLOOD GAS METHEMOGLOBIN 0.6 % (0-2); BLOOD GAS O2 HGB SATURATION 91 % (90-100); BLOOD GAS OXYGEN CONTENT 15.9 Vol % (12.0-20.0); BLOOD GAS PCO2 15 mmHg (38-42); BLOOD GAS PO2 75 mmHG (61-120); BLOOD GAS TOTAL HGB 12.4 G/DL (12.0-16.0); CRITICAL VALUE YES; DRAW SITE LT RADIAL; FIO2 21 %; NUMBER OF ARTERIAL PUNCTURES 1; OXYGEN DEVICE ROOM AIR; STAT YES; TEMP CORR TO 98.6
[2017-01-17] MEDS ORDERED: VANCOMYCIN INJ 900 MG in SODIUM CHLOR 0.9% 250 ML INJ 250 ML IV ONE (16:30)
[2017-01-17] MEDS ORDERED: PIPERACIL-TAZO 3.375 GM PREMIX 50 ML IV ONE (16:30)
[2017-01-17 16:42] LABS: BACTERIA, URINE OCC /hpf; BLOOD, URINE NEG (NEG); GLUCOSE,URINE NEG (NEG); HYALINE CAST, URINE 4 /lpf (RARE); KETONE, URINE NEG (NEG); NITRITE,URINE NEG (NEG); PH, URINE 5.5 (5.0-8.5); URINE COLOR YELLOW (YELLW/STRAW)
[2017-01-17 16:43] LABS: COMMENT (UR) CATH-CULTURE IND; CULTURE IF INDICATED CATH CULTURE IND
[2017-01-17 16:51] LABS: APTT (PATIENT) 31.3 SEC (24.3-30.1); INTERNATIONAL NORMALIZED RATIO 1.7 RATIO; PROTHROMBIN TIME - PATIENT 19.8 SEC (9.8-11.6)
[2017-01-17 16:53] LABS: AUTOMATED NEUTROPHIL # 8.1 TH/MM3 (1.8-7.7); BASOPHIL # 0.3 TH/MM3 (0-0.2); EOSINOPHIL # 0.2 TH/MM3 (0-0.4); EOSINOPHIL % 1.1 % (0.0-4.0); HEMATOCRIT 41.2 % (35.0-46.0); LYMPH % 16.2 % (9.0-44.0); LYMPHOCYTE # 2.5 TH/MM3 (1.0-4.8); MEAN CELL VOLUME 94.1 FL (80.0-100.0); MEAN CORPUSCULAR HEMOGLOBIN 29.3 PG (27.0-34.0); MEAN CORPUSCULAR HGB CONC 31.1 % (32.0-36.0); MONO % 27.4 % (0.0-8.0); NEUT % 53.3 % (16.0-70.0); PLATELET COUNT 253 TH/MM3 (150-450); RED BLOOD COUNT 4.38 MIL/MM3 (4.00-5.30); RED CELL DISTRIBUTION WIDTH 18.3 % (11.6-17.2); WHITE BLOOD COUNT 15.2 TH/MM3 (4.0-11.0)
[2017-01-17 16:55] LABS: HEMO FLAGS AUTO DIFF
[2017-01-17 17:08] LABS: ALT (GPT) 48 U/L (10-53)
[2017-01-17 17:12] LABS: ANION GAP 19 MEQ/L (5-15)
[2017-01-17 17:16] LABS: ALKALINE PHOSPHATASE 97 U/L (45-117); BLOOD UREA NITROGEN 71 MG/DL (7-18); CHLORIDE 93 MEQ/L (98-107); GLOMERULAR FILTRATION RATE 21 ML/MIN (>89); MAGNESIUM 3.2 MG/DL (1.5-2.5); SODIUM (NA) 128 MEQ/L (136-145); TOTAL BILIRUBIN ADULT 1.2 MG/DL (0.2-1.0)
--- NOTE | 2017-01-17 17:16 | PD ---
HPI Chief Complaint: Cardiac Complaint Time Seen by Provider: 15:55 Travel History International Travel<30 days: No Contact w/Intl Traveler<30days: No Traveled to known affect area: No History of Present Illness HPI Patient is a 71-year-old female who was brought to emergency room by EMS for evaluation of altered mental status. As per patient's daughter, patient was recently admitted to the hospital on November 22, 2016 for a defibrillator discharge, chronic kidney disease, a flutter, CHF, weakness due to CVA, dysphagia from CVA , diabetes mellitus type 2, htn. Patient was ultimately discharged on November 29, 2016 to rehabilitation facility. Patient's daughter reports that patient improved while at rehabilitation facilities and was talking, walking and ambulating in her own. Reports that since Tuesday, patient became increasingly weak. Reports that she stopped walking, stopped being conversive and had complete change in mental status since Tuesday. Patient's daughter reports that pt's symptoms have progressed since Tuesday so they called for help. Daughter reports that patient was on hospice, reports that her primary care doctor placed her on hospice as she had problems with her defibrillator. Family revoked hospice prior to patient arrival to ER. Family request that patient be made full code at this time. Patient unable to provide hpi at this time. PFSH Past Medical History Hx Anticoagulant Therapy: Yes Arthritis: No Asthma: Yes Autoimmune Disease: No Blood Disorders: No Anxiety: No Depression: No Heart Rhythm Problems: Yes (aflutter) Cancer: No Cardiovascular Problems: Yes (2014) High Cholesterol: Yes Chemotherapy: No Chest Pain: No Congestive Heart Failure: Yes COPD: Yes Cerebrovascular Accident: Yes (present admission ) Coronary Artery Disease: Yes Diabetes: Yes Patient Takes Glucophage: Yes Diminished Hearing: No Endocrine: Yes Gastrointestinal Disorders: No GERD: No Genitourinary: No Hiatal Hernia: No Hypertension: Yes (on BP meds though) Immune Disorder: No Implanted Vascular Access Dvce: Yes Kidney Stones: No Musculoskeletal: No Neurologic: No Psychiatric: No Reproductive: Yes (bleeding- hysterectomy done ) Respiratory: Yes Immunizations Current: Yes Migraines: No Radiation Therapy: No Renal Failure: No Seizures: No Sickle Cell Disease: No Sleep Apnea: No Thyroid Disease: No Ulcer: No Influenza Vaccination: Yes ?: Not Past Surgical History Abdominal Surgery: Yes (cholecystectomy) AICD: Yes Appendectomy: Yes Arteriovenous Shunt: No Cardiac Surgery: Yes (DEFIBRILLATOR) Cholecystectomy: Yes Ear Surgery: No Endocrine Surgery: No Eye Surgery: No Genitourinary Surgery: Yes (hysterectomy) Gynecologic Surgery: Yes (FLORINDA) Hysterectomy: Yes Insulin Pump: No Joint Replacement: No Neurologic Surgery: No Oral Surgery: Yes (teeth pulled for dentures. upper full lower partial ) Pacemaker: Yes Thoracic Surgery: No Other Surgery: Yes Social History Alcohol Use: No Tobacco Use: No Substance Use: No Allergies-Medications (Allergen,Severity, Reaction): Coded Allergies: No Known Allergies (Unverified , 01/17/17) Per daughter, patient is not allergic to aspirin and has no allergies. Reported Meds & Prescriptions Reported Meds & Active Scripts Active Zoloft (Sertraline HCl) 50 Mg Tab 50 Mg PO DAILY Metoprolol Tartrate 25 Mg Tab 25 Mg PO Q12HR Megestrol Liq (Megestrol Acetate) 40 Mg/Ml Susp 400 Mg PO BID@08,17 Glipizide 10 Mg Tab 10 Mg PO DAILYAC 10mg before morning meal and 5mg before evening meal DISP: 1 month supply Bumetanide 1 Mg Tab 2 Mg PO BID@, Restoril (Temazepam) 7.5 Mg Cap 7.5 Mg PO HS PRN Zocor (Simvastatin) 40 Mg Tab 40 Mg PO DAILY Eliquis (Apixaban) 5 Mg Tab 5 Mg PO BID Reported Spironolactone 25 Mg Tab 25 Mg PO DAILY Aspirin Low Dose (Aspirin) 81 Mg Chew 81 Mg CHEW DAILY Multiple Vitamin 1 Tab 1 Tab PO DAILY Review of Systems ROS Limitations: Altered Mental Status, Poor Historian, Other: (pt unable to provide hpi due to AMS) Physical Exam Narrative GENERAL: Moderate distress SKIN: Focused skin assessment warm/dry. HEAD: Atraumatic. Normocephalic. EYES: Pupils equal and round. No scleral icterus. No injection or drainage. ENT: No nasal bleeding or discharge. Mucous membranes pink and dry. NECK: Trachea midline. No JVD. CARDIOVASCULAR: Irregular irregular, tachycardic. No murmur appreciated. RESPIRATORY: No accessory muscle use. Clear to auscultation. Breath sounds equal bilaterally. GASTROINTESTINAL: Abdomen soft, non-tender, nondistended. Hepatic and splenic margins not palpable. MUSCULOSKELETAL: No obvious deformities. No clubbing. No cyanosis. No edema. NEUROLOGICAL: Patient confused, alert to person only Data Data Last Documented VS Vital Signs Date Time Temp Pulse Resp B/P Pulse Ox O2 Delivery O2 Flow Rate FiO2 01/17/17 18:15 139 24 113/72 99 Nasal Cannula 4 01/17/17 16:28 98.0 Orders Electrocardiogram (01/17/17 15:56) Complete Blood Count With Diff (01/17/17 15:56) Comprehensive Metabolic Panel (01/17/17 15:56) Prothrombin Time / Inr (Pt) (01/17/17 15:56) Act Partial Throm Time (Ptt) (01/17/17 15:56) Lactic Acid Sepsis Protocol (01/17/17 15:56) Magnesium (Mg) (01/17/17 15:56) Phosphorus (Po4) (01/17/17 15:56) Lipase (01/17/17 15:56) Ckmb (Isoenzyme) Profile (01/17/17 15:56) Troponin I (01/17/17 15:56) Urinalysis - C+S If Indicated (01/17/17 15:56) Blood Culture (01/17/17 15:56) Chest, Single Ap (01/17/17 15:56) Arterial Blood Gas (Abg) (01/17/17 15:56) Blood Glucose (01/17/17 15:56) Ecg Monitoring (01/17/17 15:56) Iv Access Insert/Monitor (01/17/17 15:56) Cath For Specimen (01/17/17 15:56) Oximetry (01/17/17 15:56) Oxygen Administration (01/17/17 15:56) B-Type Natriuretic Peptide (01/17/17 15:56) Sodium Chlor 0.9% 1000 Ml Inj (Ns 1000 M (01/17/17 16:00) Sodium Chlorid 0.9% 500 Ml Inj (Ns 500 M (01/17/17 16:15) Sodium Chlorid 0.9% 500 Ml Inj (Ns 500 M (01/17/17 16:30) Piperacil-Tazo 3.375 Gm Premix (Zosyn 3. (01/17/17 16:30) Vancomycin Inj (Vancomycin Inj) (01/17/17 16:30) Ct Brain W/O Iv Contrast(Rout) (01/17/17 ) Ct Thorax/ Chest Wo Iv Contras (01/17/17 ) Ct Abd/Pel W/O Iv Contrast (01/17/17 ) Urine Culture (01/17/17 16:10) Calcium Gluconate Inj (Calcium Gluconate (01/17/17 17:30) Insulin Human Regular Inj (Novolin R Inj (01/17/17 17:45) Dextrose 50% In [place] (Vial) Inj (D50w (Vi (01/17/17 17:30) Sodium Bicarbonate 8.4% Inj (Sodium Bica (01/17/17 17:30) Admit Order (Ed Use Only) (01/17/17 18:15) Labs Laboratory Tests Test 01/17/17 01/17/17 16:10 16:18 White Blood Count 15.2 TH/MM3 Red Blood Count 4.38 MIL/MM3 Hemoglobin 12.8 GM/DL Hematocrit 41.2 % Mean Corpuscular Volume 94.1 FL Mean Corpuscular Hemoglobin 29.3 PG Mean Corpuscular Hemoglobin 31.1 % Concent Red Cell Distribution Width 18.3 % Platelet Count 253 TH/MM3 Mean Platelet Volume 8.9 FL Neutrophils (%) (Auto) 53.3 % Lymphocytes (%) (Auto) 16.2 % Monocytes (%) (Auto) 27.4 % Eosinophils (%) (Auto) 1.1 % Basophils (%) (Auto) 2.0 % Neutrophils # (Auto) 8.1 TH/MM3 Lymphocytes # (Auto) 2.5 TH/MM3 Monocytes # (Auto) 4.2 TH/MM3 Eosinophils # (Auto) 0.2 TH/MM3 Basophils # (Auto) 0.3 TH/MM3 CBC Comment AUTO DIFF Differential Total Cells 100 Counted Neutrophils % (Manual) 79 % Band Neutrophils % 4 % Lymphocytes % 16 % Monocytes % 1 % Neutrophils # (Manual) 12.6 TH/MM3 Differential Comment FINAL DIFF MANUAL Platelet Estimate NORMAL Platelet Morphology Comment NORMAL Red Cell Morphology Comment NORMAL Prothrombin Time 19.8 SEC Prothromb Time International 1.7 RATIO Ratio Activated Partial 31.3 SEC Thromboplast Time Urine Color YELLOW Urine Turbidity CLEAR Urine pH 5.5 Urine Specific [place] 1.014 Urine Protein 30 mg/dL Urine Glucose (UA) NEG mg/dL Urine Ketones NEG mg/dL Urine Occult Blood NEG Urine Nitrite NEG Urine Bilirubin NEG Urine Urobilinogen LESS THAN 2.0 MG/DL Urine Leukocyte Esterase NEG Urine WBC 1 /hpf Urine Bacteria OCC /hpf Urine Hyaline Casts 4 /lpf Microscopic Urinalysis Comment CATH-CULTURE IND Sodium Level 128 MEQ/L Potassium Level 5.6 MEQ/L Chloride Level 93 MEQ/L Carbon Dioxide Level 16.0 MEQ/L Anion Gap 19 MEQ/L Blood Urea Nitrogen 71 MG/DL Creatinine 2.74 MG/DL Estimat Glomerular Filtration 21 ML/MIN Rate Random Glucose 153 MG/DL Lactic Acid Level 9.4 mmol/L Calcium Level 10.2 MG/DL Phosphorus Level 6.7 MG/DL Magnesium Level 3.2 MG/DL Total Bilirubin 1.2 MG/DL Aspartate Amino Transf 52 U/L (AST/SGOT) Alanine Aminotransferase 48 U/L (ALT/SGPT) Alkaline Phosphatase 97 U/L Total Creatine Kinase 98 U/L Troponin I 1.18 NG/ML Total Protein 8.0 GM/DL Albumin 3.5 GM/DL Lipase 73 U/L Blood Gas Puncture Site LT RADIAL Blood Gas Patient Temperature 98.6 Blood Gas HCO3 8 mmol/L Blood Gas Base Excess -16.9 mmol/L Blood Gas Oxygen Saturation 91 % Arterial Blood pH 7.35 Arterial Blood Partial 15 mmHg Pressure CO2 Arterial Blood Partial 75 mmHG Pressure O2 Arterial Blood Oxygen Content 15.9 Vol % Arterial Blood 1.0 % Carboxyhemoglobin Arterial Blood Methemoglobin 0.6 % Blood Gas Hemoglobin 12.4 G/DL Oxygen Delivery Device ROOM AIR Blood Gas Inspired Oxygen 21 % [facility] Medical Decision Making Medical Screen Exam Complete: Yes Emergency Medical Condition: Yes Interpretation(s) ekg at 1602: afib at 112bpm, Vital Signs Date Time Temp Pulse Resp B/P Pulse Ox O2 Delivery O2 Flow Rate FiO2 01/17/17 16:32 94 Nasal Cannula 2 01/17/17 16:28 98.0 96 14 90/64 100 Room Air 01/17/17 15:56 140 16 109/77 96 Differential Diagnosis Sepsis, pneumonia, CVA, electrolyte abnormality, arrhythmia, A. fib with RVR, dehydration Narrative Course Patient is a 71-year-old female who presents to emergency room with her family members weeks of altered mental status. patient is unable to provide hpi at this time Patient's blood pressure was initially 109/77, patient was initially given a 500 cc bolus of fluid, repeat blood pressure was 90/64, patient was given another 500 cc bolus of fluid, repeat bp 98/68 Patient with white count of 15.2, lactic acid of 9.4, metabolic acidosis with a pH of 7.35, PCO2 of 15, HCO3 of 8, chest xray with left basilar opacity - patient has been pancultured, patient was given Zosyn as well as vancomycin for broad-spectrum antibiotic treatment. Laboratory Tests Test 01/17/17 01/17/17 16:10 16:18 White Blood Count 15.2 TH/MM3 (4.0-11.0) Red Blood Count 4.38 MIL/MM3 (4.00-5.30) Hemoglobin 12.8 GM/DL (11.6-15.3) Hematocrit 41.2 % (35.0-46.0) Mean Corpuscular Volume 94.1 FL (80.0-100.0) Mean Corpuscular Hemoglobin 29.3 PG (27.0-34.0) Mean Corpuscular Hemoglobin 31.1 % Concent (32.0-36.0) Red Cell Distribution Width 18.3 % (11.6-17.2) Platelet Count 253 TH/MM3 (150-450) Mean Platelet Volume 8.9 FL (7.0-11.0) Neutrophils (%) (Auto) 53.3 % (16.0-70.0) Lymphocytes (%) (Auto) 16.2 % (9.0-44.0) Monocytes (%) (Auto) 27.4 % (0.0-8.0) Eosinophils (%) (Auto) 1.1 % (0.0-4.0) Basophils (%) (Auto) 2.0 % (0.0-2.0) Neutrophils # (Auto) 8.1 TH/MM3 (1.8-7.7) Lymphocytes # (Auto) 2.5 TH/MM3 (1.0-4.8) Monocytes # (Auto) 4.2 TH/MM3 (0-0.9) Eosinophils # (Auto) 0.2 TH/MM3 (0-0.4) Basophils # (Auto) 0.3 TH/MM3 (0-0.2) CBC Comment AUTO DIFF Prothrombin Time 19.8 SEC (9.8-11.6) Prothromb Time International 1.7 RATIO Ratio Activated Partial 31.3 SEC Thromboplast Time (24.3-30.1) Urine Color YELLOW (YELLW/STRAW) Urine Turbidity CLEAR (CLEAR) Urine pH 5.5 (5.0-8.5) Urine Specific [place] 1.014 (1.002-1.035) Urine Protein 30 mg/dL (NEG-TRACE) Urine Glucose (UA) NEG mg/dL (NEG) Urine Ketones NEG mg/dL (NEG) Urine Occult Blood NEG (NEG) Urine Nitrite NEG (NEG) Urine Bilirubin NEG (NEG) Urine Urobilinogen LESS THAN 2.0 MG/DL (LESS THAN 2.0) Urine Leukocyte Esterase NEG (NEG) Urine WBC 1 /hpf (0-5) Urine Bacteria OCC /hpf (NONE) Urine Hyaline Casts 4 /lpf (RARE) Microscopic Urinalysis Comment CATH-CULTURE IND Sodium Level 128 MEQ/L (136-145) Potassium Level 5.6 MEQ/L (3.5-5.1) Chloride Level 93 MEQ/L (98-107) Carbon Dioxide Level 16.0 MEQ/L (21.0-32.0) Anion Gap 19 MEQ/L (5-15) Blood Urea Nitrogen 71 MG/DL (7-18) Creatinine 2.74 MG/DL (0.50-1.00) Estimat Glomerular Filtration 21 ML/MIN (>89) Rate Random Glucose 153 MG/DL (74-106) Lactic Acid Level 9.4 mmol/L (0.4-2.0) Calcium Level 10.2 MG/DL (8.5-10.1) Phosphorus Level 6.7 MG/DL (2.5-4.9) Magnesium Level 3.2 MG/DL (1.5-2.5) Total Bilirubin 1.2 MG/DL (0.2-1.0) Aspartate Amino Transf 52 U/L (15-37) (AST/SGOT) Alanine Aminotransferase 48 U/L (10-53) (ALT/SGPT) Alkaline Phosphatase 97 U/L (45-117) Total Creatine Kinase 98 U/L (26-192) Troponin I 1.18 NG/ML (0.02-0.05) Total Protein 8.0 GM/DL (6.4-8.2) Albumin 3.5 GM/DL (3.4-5.0) Lipase 73 U/L (73-393) Blood Gas Puncture Site LT RADIAL Blood Gas Patient Temperature 98.6 Blood Gas HCO3 8 mmol/L (22-26) Blood Gas Base Excess -16.9 mmol/L (-2-2) Blood Gas Oxygen Saturation 91 % (90-100) Arterial Blood pH 7.35 (7.380-7.420) Arterial Blood Partial 15 mmHg (38-42) Pressure CO2 Arterial Blood Partial 75 mmHG Pressure O2 (61-120) Arterial Blood Oxygen Content 15.9 Vol % (12.0-20.0) Arterial Blood 1.0 % (0-4) Carboxyhemoglobin Arterial Blood Methemoglobin 0.6 % (0-2) Blood Gas Hemoglobin 12.4 G/DL (12.0-16.0) Oxygen Delivery Device ROOM AIR Blood Gas Inspired Oxygen 21 % Patient with sepsis most likely from pneumonia. case reviewed with Dr. Bassett who accepts pt to service Critical Care Narrative Aggregate critical care time was 60 minutes. Time to perform other separately billable procedures was not included in the critical care time. My time did not include minutes spent treating any other patients simultaneously or on activities that did not directly contribute to the patient's treatment. The services I provided to this patient were to treat and/or prevent clinically significant deterioration that could result in: , decompensation, deterioration I provided critical care services requiring my management, as noted below: Chart data review, documentation time, medication orders and management, vital sign assessments/reviewing monitor data, ordering and reviewing lab tests, ordering and interpreting/reviewing x-rays and diagnostic studies, care of the patient and discussion of the patient with the admitting physicians. Diagnosis Primary Impression: Sepsis Additional Impressions: Metabolic acidosis Hyperkalemia Hyponatremia Renal failure NSTEMI (non-ST elevated myocardial infarction) Admitting Information Admitting Physician Requests: Admit Christiana Manrique DO Jan 17, 2017 17:16
[2017-01-17 17:18] LABS: AST (GOT) 52 U/L (15-37); CREATINE KINASE 98 U/L (26-192); POTASSIUM 5.6 MEQ/L (3.5-5.1)
[2017-01-17] MEDS ORDERED: SODIUM BICARBONATE 8.4% SOLN 50 MEQ/50 ML VIAL SLOW IVP ONE (17:30)
[2017-01-17] MEDS ORDERED: DEXTROSE 50% IN WATER 50 ML VIAL(D50) IV PUSH ONE (17:30)
[2017-01-17] MEDS ORDERED: CALCIUM GLUCONATE 10% 1 GM/10 ML VIAL SLOW IVP ONE (17:30)
--- NOTE | 2017-01-17 17:30 | RADRPT ---
EXAM DATE/TIME: 01/17/2017 17:13 [facility] COMPARISON: CT BRAIN W/O CONTRAST, November 11, 2016, 14:44. INDICATIONS : Hospice patient, daughter complains of nausea and vomitting. RADIATION DOSE: 58.01 CTDIvol (mGy) MEDICAL HISTORY : Cardiovascular disease. Hypertension. Chronic obstructive pulmonary disease. SURGICAL HISTORY : Pacemaker. Hysterectomy.Cholecystectomy. ENCOUNTER: Initial ACUITY: 1 day PAIN SCALE: 6/10 LOCATION: cranial TECHNIQUE: Multiple contiguous axial images were obtained of the head. Using automated exposure control and adj ustment of the mA and/or kV according to patient size, radiation dose was kept as low as reasonably a chievable to obtain optimal diagnostic quality images. DICOM format image data is available electro nically for review and comparison. FINDINGS: Stable periventricular white matter changes are noted. Parenchymal calcification is seen in the left posterior temporal region. Ventricle size is appropriate. There is no parietal hemorrhage, acute i nfarction or mass lesion. There are no extra-axial fluid collections appreciated. Posterior fossa is unremarkable. The orbits and sinuses appear normal. CONCLUSION: Negative for an acute process. Herve Fam MD FACR on January 17, 2017 at 17:27 Board Certified Radiologist. This report was verified electronically.
--- NOTE | 2017-01-17 17:41 | RADRPT ---
EXAM DATE/TIME: 01/17/2017 17:18 [facility] COMPARISON: No previous studies available for comparison. INDICATIONS : Hospice patient, daughter complains of nausea and vomitting. ORAL CONTRAST: No oral contrast ingested. RADIATION DOSE: 7.05 CTDIvol (mGy) ; Combined studies MEDICAL HISTORY : Hypertension. Chronic obstructive pulmonary disease. Cardiovascular disease SURGICAL HISTORY : Pacemaker. Cholecystectomy.Hysterectomy. ENCOUNTER: Initial ACUITY: 1 day PAIN SCALE: 6/10 LOCATION: abdomen TECHNIQUE: Volumetric scanning of the abdomen and pelvis was performed. Using automated exposure control and ad justment of the mA and/or kV according to patient size, radiation dose was kept as low as reasonably achievable to obtain optimal diagnostic quality images. DICOM format image data is available electro nically for review and comparison. FINDINGS: Massive cardiomegaly is evident with small right pleural effusion. Pacer is noted. The liver, spleen, pancreas, adrenals and kidneys are unremarkable within the limits of this noncontr ast scan. Scattered gas-filled nondilated loops of small and large bowel are noted. Trace ascites is present in the pelvis. There is no significant gastric distention. There is no abscess or free air. Review of bone windows reveals only degenerative changes. CONCLUSION: Massive cardiomegaly without pericardial effusion. Minimal failure with small right pleural effusion and trace ascites. There is no gastric distention. Herve Fam MD FACR on January 17, 2017 at 17:36 Board Certified Radiologist. This report was verified electronically.
[2017-01-17] MEDS ORDERED: INSULIN HUMAN REGULAR 1,000 UNITS/10 ML VIAL IV PUSH ONE (17:45)
--- NOTE | 2017-01-17 17:46 | RADRPT ---
EXAM DATE/TIME: 01/17/2017 17:18 [facility] COMPARISON: No previous studies available for comparison. INDICATIONS : Hospice patient, complains of nausea and vomitting. RADIATION DOSE: 7.05 CTDIvol (mGy) ; Combined studies MEDICAL HISTORY : Cerebrovascular disease. Hypertension. Chronic obstructive pulmonary disease. SURGICAL HISTORY : Cholecystectomy. Hysterectomy.Pacemaker. ENCOUNTER: Initial ACUITY: 1 day PAIN SCALE: 6/10 LOCATION: chest TECHNIQUE: Volumetric scanning of the chest was performed. Using automated exposure control and adjustment of t he mA and/or kV according to patient size, radiation dose was kept as low as reasonably achievable to obtain optimal diagnostic quality images. DICOM format image data is available electronically for r eview and comparison. FINDINGS: LUNGS: Patchy minimal atelectasis in the lung bases. PLEURAE: Small right effusion MEDIASTINUM: Cardiomegaly. No mediastinal mass or adenopathy. AXILLAE: Within normal limits. No lymphadenopathy. MUSCULOSKELETAL: Within normal limits for patient age. MISCELLANEOUS: The visualized upper abdominal organs demonstrate no acute abnormality. CONCLUSION: Cardiomegaly. Small right effusion. Mild basilar atelectasis. Mello Cameron MD on January 17, 2017 at 17:39 Board Certified Radiologist. This report was verified electronically.
[2017-01-17 17:47] LABS: BANDS 4 % (0-6); NEUTROPHIL # MANUAL DIFF 12.6 TH/MM3 (1.8-7.7); POLYS (SEG NEUTROPHILS) 79 % (16-70); WBC DIFF SAMPLE 100
[2017-01-17 17:48] LABS: PLATELET ESTIMATE SMEAR NORMAL (NORMAL); PLATELET MORPHOLOGY NORMAL (NORMAL); SCAN/DIFF FINAL DIFF MANUAL
[2017-01-17] MEDS ORDERED: ASPI81CH37 CHEW (18:12)
[2017-01-17] MEDS ORDERED: SPIR25TA PO (18:12)
[2017-01-17] MEDS ORDERED: SENNOSIDES 8.6 MG TAB PO PRN (18:30)
[2017-01-17] MEDS ORDERED: MAGNESIUM HYDROXIDE SUSP 30 ML CUP PO PRN (18:30)
[2017-01-17] MEDS ORDERED: SODIUM CHLORIDE 0.9% FLUSH 10 ML FLUSH IV FLUSH PRN (18:30)
[2017-01-17] MEDS ORDERED: CHLORHEXIDINE GLUCONATE 2 % 1 PACK (2 CLOTHS) TOP PRN (18:30)
[2017-01-17] MEDS ORDERED: MORPHINE SULFATE 4 MG/ML INJ IV PRN (18:30)
[2017-01-17] MEDS ORDERED: BISACODYL 10 MG SUPP RECTAL PRN (18:30)
[2017-01-17] MEDS ORDERED: RESP: ALBUTEROL 2.5 MG/3 ML NEB (PRN) INH (18:30)
[2017-01-17] MEDS ORDERED: ONDANSETRON HCL 4 MG/2 ML VIAL IV PRN (18:30)
[2017-01-17] MEDS ORDERED: MISCELLANEOUS NURSING INFORMATION XX SCH (18:30)
[2017-01-17] MEDS ORDERED: LACTULOSE SYRUP 20 GM/30 ML CUP PO PRN (18:30)
[2017-01-17 18:32] LABS: LACTIC ACID GHOST NOT REPORTABLE
[2017-01-17] MEDS ORDERED: DEXTROSE 50% IN WATER 50 ML VIAL(D50) IV PRN (18:45)
[2017-01-17] MEDS ORDERED: GLUCAGON 1 MG/ML VIAL OTHER PRN (18:45)
[2017-01-17] MEDS ORDERED: Vancomycin Consult Pharmacy 1 EA OTHER SCH (18:45)
--- NOTE | 2017-01-17 19:05 | HHI.HP ---
[facility] Service Critical Care Medicine Primary Care Physician Unknown Admission Diagnosis Sepsis Diagnosis: (1) Metabolic acidosis Diagnosis: Principal (2) NSTEMI (non-ST elevated myocardial infarction) Diagnosis: Principal (3) Sepsis Diagnosis: Principal (4) Renal failure Diagnosis: Principal (5) Implantable cardioverter-defibrillator generator end of life Diagnosis: Principal (6) Hyperkalemia Diagnosis: Principal (7) Atrial flutter Diagnosis: Principal (8) Congestive heart failure Diagnosis: Principal (9) COPD (chronic obstructive pulmonary disease) Diagnosis: Principal (10) Elevated troponin level Diagnosis: Principal (11) CAD (coronary artery disease) Diagnosis: Principal (12) Impaired mobility and activities of daily living Diagnosis: Principal (13) Hemiparesis affecting dominant side as late effect of cerebrovascular accident (CVA) Diagnosis: Principal (14) HTN (hypertension) Diagnosis: Principal (15) CKD (chronic kidney disease) stage 3, GFR 30-59 ml/min Diagnosis: Principal (16) DM2 (diabetes mellitus, type 2) Diagnosis: Principal (17) Leukocytosis Diagnosis: Principal (18) Lactic acidosis Diagnosis: Principal (19) Hyperphosphatemia Diagnosis: Principal (20) Hypermagnesemia Diagnosis: Principal (21) Insomnia Diagnosis: Principal (22) Failure to thrive in adult Diagnosis: Principal (23) Severe sepsis with acute organ dysfunction Diagnosis: Principal Chief Complaint: Failure to thrive Travel History International Travel<30 Days: No Contact w/Intl Traveler <30 Da: No Traveled to Known Affected Are: No Sepsis Criteria SIRS Criteria (2 or more): Heart rate over 90, WBC > 00416, < 4000 or > 10% bands Severe Sepsis (+one): Hypotension, Lactate >2 Septic Shock Criteria: Lactic acid >=4 Multiple Organ Dysfunction Syn: Evidence -2 organs failing Criteria Outcome: Meets multiple organ dys. criteria History of Present Illness 71-year-old female. Date of admission 01/17/2017. Past medical history includes prior CVA with right-sided weakness, a flutter status ablation 2069, chronic kidney disease stage III sees Dr. Cunningham, coronary artery disease sees [facility] cardiology, hypertension, chronic systolic heart failure ejection fraction 20%, COPD, dyslipidemia and diabetes. In September, patient had prolonged hospitalization for CVA with right-sided hemiparesis and aphasia. She was seen in rehabilitation. And eventually discharged to care home. One week ago, patient was made hospice per physician. Daughter Triny Amor rescinded and patient was brought to [facility] for further evaluatio CT head negative. CT chest with cardiac megaly, small pleural effusion. No definite elevated troponin, acute kidney injury creatinine 2.7, leukocytosis, lactic acidosis and 9.3. Patient is currently complaining of nausea and vomiting in his throat twice daily. No abdominal pain however. CT abdomen/ pelvis revealed no acute findings. Received 1 L normal saline ED due to hypotension is currently hemodynamically stable. Review of Systems Constitutional: COMPLAINS OF: Fatigue, Weight loss, DENIES: Fever, Weight gain Endocrine: DENIES: Polydipsia, Polyuria Eyes: DENIES: Blurred vision, Vision loss Ears, nose, mouth, throat: DENIES: Tinnitus, Hearing loss Respiratory: DENIES: Apneas Cardiovascular: COMPLAINS OF: Palpitations, DENIES: Chest pain Gastrointestinal: COMPLAINS OF: Nausea, Vomiting, Difficulty Swallowing, DENIES: Abdominal pain Genitourinary: DENIES: Urgency Musculoskeletal: DENIES: Joint pain Integumentary: DENIES: Pruritus, Rash Hematologic/lymphatic: DENIES: Bruising Immunologic/allergic: DENIES: Eczema, Urticaria Neurologic: COMPLAINS OF: Localized weakness, DENIES: Headache Psychiatric: COMPLAINS OF: Confusion, DENIES: Anxiety Past Family Social History Allergies: Coded Allergies: No Known Allergies (Unverified , 01/17/17) Per daughter, patient is not allergic to aspirin and has no allergies. Past Medical History Left basal ganglia- right-sided hemiparesis/weakness History of atrial flutter status post ablation 10/[address] Velazquez Chronic kidney disease stage III Coronary artery disease Hypertension Chronic systolic heart failure ejection fraction 20% 11/08 COPD Dyslipidemia Diabetes mellitus Insomnia Depression Chronic Eliquis use Past Surgical History Status post ablation and biventricular defibrillator Caroline AICD Cholecystectomy Hysterectomy Reported Medications Eliquis 5 milligrams by mouth twice a day Zoloft 50 mg by mouth daily Megace 400 mg by mouth daily Restoril 7.5 mg by mouth at bedtime Metoprolol 25 mg by mouth twice a day Zocor 40 mg by mouth daily Bumex 2 mg by mouth twice a day Spironolactone 25 mg by mouth at bedtime Multivitamin 1 tablet daily Aspirin 81 mg by mouth daily Glipizide 10 mg by mouth before meals Active Ordered Medications Reviewed in EMR Family History Positive for CVA in mother. Positive for hypertension. Social History No tobacco, alcohol, or IV drug use. Physical Exam Vital Signs Vital Signs Date Time Temp Pulse Resp B/P Pulse Ox O2 Delivery O2 Flow Rate FiO2 01/17/17 18:24 98.7 01/17/17 18:15 139 24 113/72 99 Nasal Cannula 4 01/17/17 17:47 100 16 132/67 96 Nasal Cannula 2 01/17/17 17:01 91 15 98/68 97 Nasal Cannula 2 01/17/17 16:32 94 Nasal Cannula 2 01/17/17 16:28 98.0 96 14 90/64 100 Room Air 01/17/17 15:56 140 16 109/77 96 Physical Exam GENERAL: SKIN: Warm and dry. HEAD: Atraumatic. Normocephalic. EYES: Pupils equal and round. No scleral icterus. No injection or drainage. ENT: No nasal bleeding or discharge. Mucous membranes pink and moist. NECK: Trachea midline. No JVD. CARDIOVASCULAR: Regular rate and rhythm. RESPIRATORY: No accessory muscle use. Clear to auscultation. Breath sounds equal bilaterally. GASTROINTESTINAL: Abdomen soft, non-tender, nondistended. Hepatic and splenic margins not palpable. MUSCULOSKELETAL: Extremities without clubbing, cyanosis, or edema. No obvious deformities. NEUROLOGICAL: Awake and alert. No obvious cranial nerve deficits. Motor grossly within normal limits. Five out of 5 muscle strength in the arms and legs. Normal speech. PSYCHIATRIC: Appropriate mood and affect; insight and judgment normal. Laboratory Laboratory Tests Test 01/17/17 01/17/17 16:10 16:18 White Blood Count 15.2 Red Blood Count 4.38 Hemoglobin 12.8 Hematocrit 41.2 Mean Corpuscular Volume 94.1 Mean Corpuscular Hemoglobin 29.3 Mean Corpuscular Hemoglobin 31.1 Concent Red Cell Distribution Width 18.3 Platelet Count 253 Mean Platelet Volume 8.9 Neutrophils (%) (Auto) 53.3 Lymphocytes (%) (Auto) 16.2 Monocytes (%) (Auto) 27.4 Eosinophils (%) (Auto) 1.1 Basophils (%) (Auto) 2.0 Neutrophils # (Auto) 8.1 Lymphocytes # (Auto) 2.5 Monocytes # (Auto) 4.2 Eosinophils # (Auto) 0.2 Basophils # (Auto) 0.3 CBC Comment AUTO DIFF Differential Total Cells 100 Counted Neutrophils % (Manual) 79 Band Neutrophils % 4 Lymphocytes % 16 Monocytes % 1 Neutrophils # (Manual) 12.6 Differential Comment FINAL DIFF MANUAL Platelet Estimate NORMAL Platelet Morphology Comment NORMAL Red Cell Morphology Comment NORMAL Prothrombin Time 19.8 Prothromb Time International 1.7 Ratio Activated Partial 31.3 Thromboplast Time Urine Color YELLOW Urine Turbidity CLEAR Urine pH 5.5 Urine Specific [place] 1.014 Urine Protein 30 Urine Glucose (UA) NEG Urine Ketones NEG Urine Occult Blood NEG Urine Nitrite NEG Urine Bilirubin NEG Urine Urobilinogen LESS THAN 2.0 Urine Leukocyte Esterase NEG Urine WBC 1 Urine Bacteria OCC Urine Hyaline Casts 4 Microscopic Urinalysis Comment CATH-CULTURE IND Sodium Level 128 Potassium Level 5.6 Chloride Level 93 Carbon Dioxide Level 16.0 Anion Gap 19 Blood Urea Nitrogen 71 Creatinine 2.74 Estimat Glomerular Filtration 21 Rate Random Glucose 153 Lactic Acid Level 9.4 Calcium Level 10.2 Phosphorus Level 6.7 Magnesium Level 3.2 Total Bilirubin 1.2 Aspartate Amino Transf 52 (AST/SGOT) Alanine Aminotransferase 48 (ALT/SGPT) Alkaline Phosphatase 97 Total Creatine Kinase 98 Troponin I 1.18 Total Protein 8.0 Albumin 3.5 Lipase 73 Blood Gas Puncture Site LT RADIAL Blood Gas Patient Temperature 98.6 Blood Gas HCO3 8 Blood Gas Base Excess -16.9 Blood Gas Oxygen Saturation 91 Arterial Blood pH 7.35 Arterial Blood Partial 15 Pressure CO2 Arterial Blood Partial 75 Pressure O2 Arterial Blood Oxygen Content 15.9 Arterial Blood 1.0 Carboxyhemoglobin Arterial Blood Methemoglobin 0.6 Blood Gas Hemoglobin 12.4 Oxygen Delivery Device ROOM AIR Blood Gas Inspired Oxygen 21 Date/Time Procedure Status Source Growth 01/17/17 16:27 Aerobic Blood Culture Received Blood Peripheral Pending 01/17/17 16:27 Anaerobic Blood Culture Received Blood Peripheral Pending 01/17/17 16:10 Urine Culture Received Urine Catheterized Urine Pending Result Diagram: 01/17/17 1610 01/17/17 1610 Imaging Last Impressions Chest X-Ray 01/17/17 1556 Signed Impressions: Service Date/Time: Tuesday, January 17, 2017 16:07 - CONCLUSION: 1. Left basilar opacity may represent atelectasis, consolidation, and/or pleural effusion. 2. Stable enlargement of the cardiac silhouette within abnormal cardiac shape. Mello Dorman MD Head CT 01/17/17 0000 Signed Impressions: Service Date/Time: Tuesday, January 17, 2017 17:13 - CONCLUSION: Negative for an acute process. Herve Fam MD FACR Chest CT 01/17/17 0000 Signed Impressions: Service Date/Time: Tuesday, January 17, 2017 17:18 - CONCLUSION: Cardiomegaly. Small right effusion. Mild basilar atelectasis. Mello Cameron MD Abdomen/Pelvis CT 01/17/17 0000 Signed Impressions: Service Date/Time: Tuesday, January 17, 2017 17:18 - CONCLUSION: Massive cardiomegaly without pericardial effusion. Minimal failure with small right pleural effusion and trace ascites. There is no gastric distention. Herve Fam MD FACR Assessment and Plan Assessment and Plan 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 Depression Failure to thrive Insomnia Continue Zoloft 50 mg by mouth daily for depression Holding Restoril 7.5 mg daily at bedtime as home medication for insomnia Continue Megace 400 mill grams by mouth daily for failure to thrive CT head this admission 01/17 revealed no acute intracranial findings CV: Severe sepsis with multisystem organ failure Chronic systolic heart failure ejection fraction 20% History of atrial flutter status post ablation 10/[address] Velazquez Hypertension Dyslipidemia Lactic acidosis Status post AICD placement Elevated troponin 2-D echo 11/08 revealed EF 20-25%. Global hypokinesis. Akinesis and scarring of the inferior posterior margin. Moderate MR/TR. Mild left atrial dilation. DARLIN 55 mmHg Status post 1 L normal saline in ED. Holding Zocor 40 mg by mouth daily for dyslipidemia. Resume when clinically indicated Holding Bumex 2 mg by mouth twice a day and spironolactone 25 mg at night due to hypotension and acute kidney injury.. 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 CT abdomen/pelvis revealed no signs of bowel obstruction. 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 Follow trends Holding Eliquis 5 mg twice a day in light of crit greater than 1.5 Check fibrinogen ID: Severe sepsis source pneumonia aspiration? UTI? Day 1 vancomycin/Zosyn Pertinent cultures - Blood cultures - pending - Urine culture 01/17 - pending Sputum and influenza ordered FEN: Hyponatremia Hyperkalemia Hyper-magnesium Hyperphosphatemia Currently on normal saline at 84 cc an hour. Received hyperkalemia protocol in ED. Recheck potassium this evening Checking cortisol and TSH levels. Checking urine sodium/osm and serum osm and uric acid MSK: PT evaluate and treat Access - Utilize peripheral IV. Central line if indicated Prophylaxis - GI -Protonix - DVT - SCD/holding pharmacological prophylaxis with eliquis is due to acute kidney injury creatinine greater than 1.5 Level III admission Code Status Full code Discussed Condition With Triny Amor - healthcare proxy. ED physician. Care plan discussed all questions answered. Problem Qualifiers (1) Sepsis: Qualified Code: A41.9 - Sepsis, due to unspecified organism (2) Renal failure: Qualified Code: N17.9 - Acute renal failure superimposed on stage 3 chronic kidney disease, unspecified acute renal failure type (3) Atrial flutter: Qualified Code: I48.92 - Atrial flutter, unspecified type (4) Congestive heart failure: Qualified Code: I50.20 - Systolic congestive heart failure, unspecified congestive heart failure chronicity (5) COPD (chronic obstructive pulmonary disease): Qualified Code: J44.9 - Chronic obstructive pulmonary disease, unspecified COPD type (6) CAD (coronary artery disease): (7) HTN (hypertension): Qualified Code: I15.9 - Secondary hypertension (8) DM2 (diabetes mellitus, type 2): Qualified Code: E11.8 - Type 2 diabetes mellitus with complication, without long-term current use of insulin (9) Leukocytosis: Qualified Code: D72.829 - Leukocytosis, unspecified type (10) Insomnia: Qualified Code: G47.00 - Insomnia, unspecified type Jesus Pearson MD Jan 17, 2017 19:05
[2017-01-17] MEDS: SODIUM CHLOR 0.9% 1000 ML INJ 1,000 ML IV SCH (20:30)
[2017-01-17] MEDS: DOCUSATE SODIUM 50 MG/SENNA 8.6 MG TAB PO SCH (21:00)
[2017-01-17] MEDS: RESP: ALBUTEROL 2.5 MG/IPRATROPIUM 0.5 MG NEB (SCH) INH (21:33)
[2017-01-18] VITALS (25 sets, daily range): BP systolic 97–114; BP diastolic 63–81; PULSE 93–124; RESP 12–46; TEMP 97.7–98.7; O2SAT 97–100
[2017-01-18] MEDS: PIPERACIL-TAZO 2.25 GM PREMIX 50 ML IV SCH ×4 (00:53→17:40)
[2017-01-18] MEDS: SODIUM CHLORIDE 0.9% FLUSH 10 ML FLUSH IV FLUSH SCH ×3 (00:53→21:15)
[2017-01-18 01:08] LABS: URIC ACID 13.9 MG/DL (2.6-6.0)
[2017-01-18] MEDS: CHLORHEXIDINE GLUCONATE 2 % 1 PACK (2 CLOTHS) TOP SCH (04:00)
[2017-01-18] MEDS: RESP: ALBUTEROL 2.5 MG/IPRATROPIUM 0.5 MG NEB (SCH) INH ×4 (04:00→20:12)
[2017-01-18 05:06] LABS: AUTOMATED NEUTROPHIL # 7.9 TH/MM3 (1.8-7.7); BASOPHIL % 0.5 % (0.0-2.0); EOSINOPHIL % 0.1 % (0.0-4.0); HEMATOCRIT 36.8 % (35.0-46.0); HEMO FLAGS DIFF FINAL; LYMPH % 16.7 % (9.0-44.0); LYMPHOCYTE # 1.8 TH/MM3 (1.0-4.8); MEAN CELL VOLUME 90.2 FL (80.0-100.0); MEAN CORPUSCULAR HEMOGLOBIN 30.2 PG (27.0-34.0); MEAN CORPUSCULAR HGB CONC 33.5 % (32.0-36.0); MONO % 7.6 % (0.0-8.0); NEUT % 75.1 % (16.0-70.0); PLATELET COUNT 230 TH/MM3 (150-450); RED BLOOD COUNT 4.08 MIL/MM3 (4.00-5.30); RED CELL DISTRIBUTION WIDTH 18.4 % (11.6-17.2); WHITE BLOOD COUNT 10.5 TH/MM3 (4.0-11.0)
[2017-01-18 05:17] LABS: APTT (PATIENT) 30.2 SEC (24.3-30.1); INTERNATIONAL NORMALIZED RATIO 1.7 RATIO; PROTHROMBIN TIME - PATIENT 19.8 SEC (9.8-11.6)
[2017-01-18 05:38] LABS: ALKALINE PHOSPHATASE 83 U/L (45-117); ALT (GPT) 59 U/L (10-53); ANION GAP 14 MEQ/L (5-15); AST (GOT) 52 U/L (15-37); BICARBONATE 19.9 MEQ/L (21.0-32.0); BLOOD UREA NITROGEN 66 MG/DL (7-18); CHLORIDE 103 MEQ/L (98-107); GLOMERULAR FILTRATION RATE 29 ML/MIN (>89); MAGNESIUM 2.7 MG/DL (1.5-2.5); POTASSIUM 4.3 MEQ/L (3.5-5.1); SODIUM (NA) 137 MEQ/L (136-145)
[2017-01-18] MEDS: INSULIN NovoLIN REGULAR SUPPLEMENTAL SCALE SQ SCH ×4 (06:00→17:50)
[2017-01-18] MEDS: ARTIFICIAL TEARS OPTH SOLN 15 ML BTL EACH EYE SCH ×3 (08:22→17:47)
[2017-01-18] MEDS: ASPIRIN 81 MG CHEW TAB CHEW SCH (08:23)
[2017-01-18] MEDS: MEGESTROL ACETATE SUSP 400 MG/10 ML CUP PO SCH ×2 (08:23→17:40)
[2017-01-18] MEDS: DOCUSATE SODIUM 50 MG/SENNA 8.6 MG TAB PO SCH ×2 (08:23→21:16)
[2017-01-18] MEDS: MULTIVITAMIN TAB PO SCH (08:23)
[2017-01-18] MEDS: PANTOPRAZOLE SODIUM 40 MG VIAL IV SCH (08:24)
[2017-01-18] MEDS ORDERED: SERTRALINE HCL 50 MG TAB PO SCH (09:00)
[2017-01-18] MEDS ORDERED: VANCOMYCIN 500 MG/NS 100 ML IV ONE ×2 (12:00)
[2017-01-18] MEDS: SODIUM CHLOR 0.9% 1000 ML INJ 1,000 ML IV SCH (12:24)
--- NOTE | 2017-01-18 14:44 | ECHRPT ---
Indication: EF assessment of CHF CONCLUSIONS The left ventricular systolic function is severely reduced with an estimated ejection fraction in th e range of 20-25%. Mild concentric left ventricular hypertrophy. Mild left ventricular enlargement. Possibly basal posterior and apical akinesis, and severe hypokinesis of all other segments. The ant erior wall is poorly visualized. The left atrial size is mildly dilated. BP: 106 / 63 HR: 105 Rhythm: Other MEASUREMENTS (Male / Female) Normal Values Technical Quality:Good 2D ECHO LV Diastolic Diameter PLAX 5.6 cm 4.2 - 5.9 / 3.9 - 5.3 cm LV Systolic Diameter PLAX 5.3 cm IVS Diastolic Thickness 1.4 cm 0.6 - 1.0 / 0.6 - 0.9 cm LVPW Diastolic Thickness 1.2 cm 0.6 - 1.0 / 0.6 - 0.9 cm LV Relative Wall Thickness 0.5 FINDINGS LEFT VENTRICLE The left ventricular systolic function is severely reduced with an estimated ejection fraction in th e range of 20-25%. Mild concentric left ventricular hypertrophy. Mild left ventricular enlargement. Possibly basal posterior and apical akinesis, and severe hypokinesis of all other segments. The ant erior wall is poorly visualized. RIGHT VENTRICLE Normal right ventricular size and systolic function. LEFT ATRIUM The left atrial size is mildly dilated. Walt Ambrosio MD (Electronically Signed) Final Date:18 January 2017 14:43
--- NOTE | 2017-01-18 16:19 | EKG ---
Date Performed: 01/18/2017 Time Performed: 00:37:22 PTAGE: 71 years EKG: Atrial fibrillation Demand pacing Left axis deviation IV conduction defect Extensive infarc t - age undetermined Left bundle branch block. There appears to be a paced ventricular rhythm. Abnor mal ECG PREVIOUS TRACING 01/17/2017 16.02.44 DOCTOR: Krunal Johnson Interpretating Date/Time 01/18/2017 16:18:38
--- NOTE | 2017-01-18 16:19 | EKG ---
Date Performed: 01/17/2017 Time Performed: 16:02:44 PTAGE: 71 years EKG: ATRIAL FIBRILLATION WITH RAPID VENTRICULAR RESPONSE WITH ABERRANT CONDUCTION OR VENTRICULAR PREMATURE COMPLEXES INTRAVENTRICULAR CONDUCTION DELAY ABNORMAL ECG Left bundle branch block. PREVIOUS TRACING : 11/21/2016 23.52 DOCTOR: Krunal Johnson Interpretating Date/Time 01/18/2017 16:17:31
--- NOTE | 2017-01-18 16:51 | HHI.CCPN ---
Subjective Remarks/Hospital Course 71-year-old female. Date of admission 01/17/2017. Past medical history includes prior CVA with right-sided weakness, a flutter status ablation 2069, chronic kidney disease stage III sees Dr. Cunningham, coronary artery disease sees [facility] cardiology, hypertension, chronic systolic heart failure ejection fraction 20%, COPD, dyslipidemia and diabetes. In September, patient had prolonged hospitalization for CVA with right-sided hemiparesis and aphasia. She was seen in rehabilitation. And eventually discharged to correction. One week ago, patient was made hospice per physician. Daughter Triny Amor rescinded and patient was brought to [facility] for further evaluatio CT head negative. CT chest with cardiac megaly, small pleural effusion. No definite elevated troponin, acute kidney injury creatinine 2.7, leukocytosis, lactic acidosis and 9.3. Patient is currently complaining of nausea and vomiting in his throat twice daily. No abdominal pain however. CT abdomen/ pelvis revealed no acute findings. Received 1 L normal saline ED due to hypotension is currently hemodynamically stable. Subjective: 01/18: Patient complains of being hungry this a.m., nausea and vomiting resolved. Ice chips tolerated well. Plan to advance to clear liquid diet. Patient this afternoon slightly lethargic, but easily arousable. ABG obtained rule out CO2 narcosis, Zoloft placed on hold. Objective Vital Signs Date Time Temp Pulse Resp B/P Pulse Ox O2 Delivery O2 Flow Rate FiO2 01/18/17 12:00 97.7 96 97/69 100 01/18/17 10:00 21 01/18/17 08:47 Nasal Cannula 2.00 Intake and Output 01/17/17 01/17/17 01/18/17 08:00 16:00 00:00 Intake Total 84 ml Balance 84 ml Result Diagram: 01/18/17 0448 01/18/17 0448 Other Results Microbiology Date/Time Procedure Status Source Growth 01/17/17 19:30 Influenza Types A,B Antigen (VIVIANA) - Final Complete Nasal Aspirate NEGATIVE FOR FLU A AND B ANTIGEN.... Imaging Last Impressions Chest X-Ray 01/17/17 8092 Signed Impressions: Service Date/Time: Tuesday, January 17, 2017 16:07 - CONCLUSION: 1. Left basilar opacity may represent atelectasis, consolidation, and/or pleural effusion. 2. Stable enlargement of the cardiac silhouette within abnormal cardiac shape. Mello Dorman MD Head CT 01/17/17 0000 Signed Impressions: Service Date/Time: Tuesday, January 17, 2017 17:13 - CONCLUSION: Negative for an acute process. Herve Fam MD FACR Chest CT 01/17/17 0000 Signed Impressions: Service Date/Time: Tuesday, January 17, 2017 17:18 - CONCLUSION: Cardiomegaly. Small right effusion. Mild basilar atelectasis. Mello Cameron MD Abdomen/Pelvis CT 01/17/17 0000 Signed Impressions: Service Date/Time: Tuesday, January 17, 2017 17:18 - CONCLUSION: Massive cardiomegaly without pericardial effusion. Minimal failure with small right pleural effusion and trace ascites. There is no gastric distention. Herve Fam MD FACR Objective Remarks GENERAL: Elderly female lethargic, but easily arousable and oriented SKIN: Warm and dry. HEAD: Atraumatic. Normocephalic. EYES: Pupils equal and round. No scleral icterus. No injection or drainage. ENT: No nasal bleeding or discharge. Mucous membranes pink and moist. Uvula midline NECK: Trachea midline. No JVD. CARDIOVASCULAR: Regular rate and rhythm. Telemetry normal sinus rhythm RESPIRATORY: No accessory muscle use. Clear to auscultation. Breath sounds equal bilaterally. Nasal cannula GASTROINTESTINAL: Abdomen soft, non-tender, nondistended. Hepatic and splenic margins not palpable. MUSCULOSKELETAL: Extremities without clubbing, cyanosis, or edema. No obvious deformities. NEUROLOGICAL: Awake and alert. No obvious cranial nerve deficits. Motor grossly within normal limits. Five out of 5 muscle strength in the arms and legs. Normal speech. PSYCHIATRIC: Appropriate mood and affect; insight and judgment normal. 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 Velazquez Hypertension Dyslipidemia Lactic acidosis Status post AICD placement Elevated troponin 2-D echo 11/08 revealed EF 20-25%. Global hypokinesis. Akinesis and scarring of the inferior posterior margin. Moderate MR/TR. Mild left atrial dilation. DARLIN 55 mmHg Status post 1 L normal saline in ED. Holding Zocor 40 mg by mouth daily for dyslipidemia. Resume when clinically indicated Holding Bumex 2 mg by mouth twice a day and spironolactone 25 mg at night due to hypotension and acute kidney injury.. Trend lactates every 6 hours until cleared 4.6-> 2.6 today Echocardiogram 01/18-ejection fraction 2024 percent. Possible basal posterior and apical kinesis and severe hypokinesis of all other segments Dr. Olson is her tennis centre manager Continue aspirin 81 mg by mouth daily Holding metoprolol 25 mg by mouth twice a day, until clinically indicated Resp: History COPD Small right pleural effusion Nasal cannula to maintain saturations greater than equal to 92% Incentive spirometry while awake Duo nebs every 6 hours and albuterol every 2 hours when necessary dyspnea CT chest 01/08 revealed massive cardiomegaly, small right pleural effusion Obtain ABG rule out CO2 narcosis GI: Nausea/vomiting-resolved Elevated AST Ice chips advanced to clear liquid diet Protonix for GI prophylaxis PeriColace for bowel regimen On Megace for anorexia. CT abdomen/pelvis revealed no signs of bowel obstruction. : Cavanaugh catheter for accurate I's and O's in a critically ill patient Endo: Diabetes mellitus Sliding-scale insulin with Accu-Cheks every 6 hours to maintain euglycemia/low regimen Holding glipizide 10 mg before meals TSH and cortisol WNL Renal: Acute kidney injury in the setting of chronic kidney disease Baseline creatinine around 1.7 Avoid nephrotoxic drugs Accurate I's and O's Monitor urine output Check urine electrolytes and eosinophils No hydronephrosis on CT abdomen/pelvis Dr. Cunningham is her sizing machine operator Heme: Leukocytosis Elevated PT/INR and PTT Monitor CBC daily. Follow trends Holding Eliquis 5 mg BID, INR 1.7 01/17 fibrinogen WNL ID: Severe sepsis source pneumonia aspiration? UTI? Day 2 vancomycin/Zosyn Pertinent cultures - Blood cultures 2 01/17 -gram-negative rods - Urine culture 01/17 - pending Sputum culture-pending influenza A & B-negative FEN: Hyponatremia Hyperkalemia-resolved Hyper-magnesium Hyperphosphatemia Currently on normal saline at 84 cc an hour. Received hyperkalemia protocol in ED. Re urine sodium/osm and serum osm and uric acid MSK: PT evaluate and treat Access - Utilize peripheral IV. Central line if indicated Prophylaxis - GI -Protonix - DVT - SCD/holding pharmacological prophylaxis with eliquis is due to acute kidney injury creatinine greater than 1.5 Level 3 Discussed with MATHEMATICIAN RESEARCH at bedside. Physician Marlen Suarez MD Jan 18, 2017 16:51
[2017-01-18 17:21] LABS: BLOOD GAS BASE EXCESS -9.9 mmol/L (-2-2); BLOOD GAS CARBOXYHEMOGLOBIN 1.7 % (0-4); BLOOD GAS HCO3 14 mmol/L (22-26); BLOOD GAS O2 HGB SATURATION 93 % (90-100); BLOOD GAS OXYGEN CONTENT 16.5 Vol % (12.0-20.0); BLOOD GAS PCO2 20 mmHg (38-42); BLOOD GAS PO2 86 mmHg (61-120); BLOOD GAS TOTAL HGB 12.5 G/DL (12.0-16.0); CRITICAL VALUE YES; DRAW SITE RT RADIAL; LITER FLOW 2 L/M; NUMBER OF ARTERIAL PUNCTURES 1; OXYGEN DEVICE NASAL CANNULA; STAT NO; TEMP CORR TO 98.6; ULNAR PULSE PRESENT
[2017-01-18] MEDS: SODIUM BICARBONATE 8.4% INJ 150 MEQ in DEXTROSE 5% IN WATE 1000ML INJ 850 ML IV SCH ×2 (18:48)
[2017-01-19] VITALS (20 sets, daily range): BP systolic 98–116; BP diastolic 63–79; PULSE 106–149; RESP 16–35; TEMP 96.5–97.5; O2SAT 100
[2017-01-19] MEDS: PIPERACIL-TAZO 2.25 GM PREMIX 50 ML IV SCH ×5 (00:21→23:01)
[2017-01-19] MEDS: ACETAMINOPHEN/HYDROcodone 325 MG/5 MG TAB PO PRN ×2 (00:21→22:50)
[2017-01-19] MEDS: INSULIN NovoLIN REGULAR SUPPLEMENTAL SCALE SQ SCH ×5 (00:26→23:19)
[2017-01-19] MEDS: TEMAZEPAM 15 MG CAP PO PRN ×2 (01:56→21:29)
[2017-01-19] MEDS: METOPROLOL TARTRATE 5 MG/5 ML VIAL IV PUSH PRN ×4 (01:56→17:16)
[2017-01-19] MEDS: RESP: ALBUTEROL 2.5 MG/IPRATROPIUM 0.5 MG NEB (SCH) INH ×4 (04:00→20:35)
[2017-01-19] MEDS: CHLORHEXIDINE GLUCONATE 2 % 1 PACK (2 CLOTHS) TOP SCH (04:00)
[2017-01-19 05:38] LABS: AUTOMATED NEUTROPHIL # 5.9 TH/MM3 (1.8-7.7); BASOPHIL # 0.1 TH/MM3 (0-0.2); BASOPHIL % 0.6 % (0.0-2.0); EOSINOPHIL # 0.1 TH/MM3 (0-0.4); EOSINOPHIL % 1.5 % (0.0-4.0); HEMATOCRIT 34.4 % (35.0-46.0); LYMPH % 21.8 % (9.0-44.0); MEAN CELL VOLUME 90.2 FL (80.0-100.0); MEAN CORPUSCULAR HEMOGLOBIN 30.4 PG (27.0-34.0); MEAN CORPUSCULAR HGB CONC 33.8 % (32.0-36.0); MONO % 11.2 % (0.0-8.0); NEUT % 64.9 % (16.0-70.0); PLATELET COUNT 221 TH/MM3 (150-450); RED BLOOD COUNT 3.81 MIL/MM3 (4.00-5.30); RED CELL DISTRIBUTION WIDTH 18.6 % (11.6-17.2); WHITE BLOOD COUNT 9.1 TH/MM3 (4.0-11.0)
[2017-01-19 05:44] LABS: INTERNATIONAL NORMALIZED RATIO 1.5 RATIO; PROTHROMBIN TIME - PATIENT 16.7 SEC (9.8-11.6)
[2017-01-19 06:02] LABS: HEMO FLAGS AUTO DIFF
[2017-01-19 06:08] LABS: BICARBONATE 24.1 MEQ/L (21.0-32.0); POTASSIUM 3.5 MEQ/L (3.5-5.1)
[2017-01-19 08:42] LABS: BANDS 2 % (0-6); CORRECTED NUCLEATED RBC 7 /100 WBC (0-0); EOSINOPHILS 1 % (0-4); NEUTROPHIL # MANUAL DIFF 6.6 TH/MM3 (1.8-7.7); PLASMA CELLS 1 % (0-0); POLYS (SEG NEUTROPHILS) 70 % (16-70); WBC DIFF SAMPLE 100
--- NOTE | 2017-01-19 08:42 | PD.CONS ---
HPI Service CV Consult Requested By Reason for Consult chest pain Primary Care Physician Unknown History of Present Illness Here with CAD, cardiomyopathy EF 25% s/p BiV/ICD, chronic systolic heart failure , h/o a-flutter s/p ablation, paroxysmal VT, HTN and hyperlipidemia. She is admitted for lower extremity edema and chest pain. She was place on hospice and then her daughter revoked the order and wanted her brought to [facility] for aggressive treatment. Her blood pressure is low and precludes any BB or RUPALI-I. Review of Systems Consitutional: DENIES: Fatigue, Fever, Chills, Weight gain, Weight loss Eyes: DENIES: Amaurosis Fugax, Change in vision HEENT: DENIES: Lightheadedness, Change in hearing Respiratory: DENIES: See HPI, Cough, Snoring, Shortness of breath, Wheezing, Sputum production Cardiovascular: COMPLAINS OF: See HPI Gastrointestinal: DENIES: Nausea, Vomiting, Change in bowel habits, Reflux, Bloody stools, Melena Genitourinary: DENIES: Urinary incontinence, Difficulty voiding Integumentary: DENIES: Rash Neurologic: DENIES: Tingling or numbness, Memory problems, Poor Balance, Stroke symptoms Musculoskeletal: DENIES: Joint pain, Muscle pain, Limited range of motion, Back pain Psychiatric: DENIES: Anxiety, Depression, Sleep disturbances Hematologic: DENIES: Bruising tendencies, Bleeding tendencies Endocrine: DENIES: Weight gain, Weight loss, Thyroid disease Past Family Social History Allergies: Coded Allergies: No Known Allergies (Unverified , 01/17/17) Per daughter, patient is not allergic to aspirin and has no allergies. Past Medical History Left basal ganglia- right-sided hemiparesis/weakness History of atrial flutter status post ablation 10/[address] Velazquez Chronic kidney disease stage III Coronary artery disease Hypertension Chronic systolic heart failure ejection fraction 20% 11/08 COPD Dyslipidemia Diabetes mellitus Insomnia Depression Past Surgical History Status post ablation and biventricular defibrillator Caroline AICD Cholecystectomy Hysterectomy Reported Medications Reported Meds & Active Scripts Active Zoloft (Sertraline HCl) 50 Mg Tab 50 Mg PO DAILY Metoprolol Tartrate 25 Mg Tab 25 Mg PO Q12HR Megestrol Liq (Megestrol Acetate) 40 Mg/Ml Susp 400 Mg PO BID@ Glipizide 10 Mg Tab 10 Mg PO DAILYAC 10mg before morning meal and 5mg before evening meal DISP: 1 month supply Bumetanide 1 Mg Tab 2 Mg PO BID@,14 Restoril (Temazepam) 7.5 Mg Cap 7.5 Mg PO HS PRN Zocor (Simvastatin) 40 Mg Tab 40 Mg PO DAILY Eliquis (Apixaban) 5 Mg Tab 5 Mg PO BID Reported Spironolactone 25 Mg Tab 25 Mg PO DAILY Aspirin Low Dose (Aspirin) 81 Mg Chew 81 Mg CHEW DAILY Multiple Vitamin 1 Tab 1 Tab PO DAILY Active Ordered Medications Current Medications Medications (Trade) Dose Ordered Sig/Gisela Route Start Time Stop Time Status Last Admin (NS Flush) 2 ml UNSCH PRN IV FLUSH 01/17/17 18:30 (NS Flush) 2 ml BID IV FLUSH 01/17/17 21:00 01/18/17 21:15 (Tylenol) 650 mg Q6H PRN PO 01/17/17 18:30 ([place] 5-325 Mg) 1 tab Q4H PRN PO 01/17/17 18:30 01/19/17 00:21 (Morphine Inj) 2 mg Q2H PRN IV 01/17/17 18:30 (Protonix Inj) 40 mg DAILY IV 01/18/17 09:00 01/18/17 08:24 (Tears Naturale Opth Soln) 1 drop TID EACH EYE 01/18/17 09:00 01/18/17 17:47 (Zofran Inj) 4 mg Q6H PRN IV 01/17/17 18:30 Miscellaneous Information 1 [id number] XX 01/17/17 18:30 (Chlorhexidine 2% Cloth) 3 pack Taper DAILY@04 TOP 01/18/17 04:00 01/14/18 03:59 01/19/17 04:00 (Chlorhexidine 2% Cloth) 3 pack UNSCH PRN TOP 01/17/17 18:30 (Carmen-Colace) 1 tab BID PO 01/17/17 21:00 01/18/17 21:16 (Milk Of Magnesia Liq) 30 ml Q12H PRN PO 01/17/17 18:30 (Senokot) 17.2 mg Q12H PRN PO 01/17/17 18:30 (Dulcolax Supp) 10 mg DAILY PRN RECTAL 01/17/17 18:30 Lactulose 30 ml 30 ml DAILY PRN PO 01/17/17 18:30 Piperacillin Sod/ Tazobactam Sod 50 ml @ 100 mls/hr Q6H IV 01/17/17 23:00 01/19/17 05:38 (Vancomycin Consult Pharmacy) 0 ml @ 0 mls/hr UNSCH OTHER 01/17/17 18:45 (Aspirin Chew) 81 mg DAILY CHEW 01/18/17 09:00 01/18/17 08:23 (Megace Liq) 400 mg BID@ PO 01/18/17 08:00 01/18/17 17:40 (Zoloft) 50 mg DAILY PO 01/18/17 09:00 Hold 01/18/17 08:23 (Theragran) 1 tab DAILY PO 01/18/17 09:00 01/18/17 08:23 (D50w (Vial) Inj) 50 ml UNSCH PRN IV 01/17/17 18:45 (Glucagon Inj) 1 mg UNSCH PRN OTHER 01/17/17 18:45 Insulin Human Regular 1 1 Q6HR SQ 01/18/17 00:00 01/19/17 00:26 (Sodium Bicarbonate 8.4% Inj/D5W 1000 ml Inj) 1,000 ml @ 75 mls/hr [id number] IV 01/18/17 19:00 01/18/17 18:48 (Lopressor Inj) 5 mg Q5M PRN IV PUSH 01/19/17 01:45 01/19/17 01:56 (Restoril) 15 mg HS PRN PO 01/19/17 01:45 01/19/17 01:56 Family History noncontributory Social History No tobacco, alcohol, or IV drug use. Physical Exam Vital Signs Vital Signs Date Time Temp Pulse Resp B/P Pulse Ox O2 Delivery O2 Flow Rate FiO2 01/19/17 06:00 123 01/19/17 04:00 97.0 115 19 108/71 100 01/19/17 04:00 115 01/19/17 02:00 149 01/19/17 00:00 106 01/19/17 00:00 97.5 106 25 116/73 100 01/18/17 22:00 124 01/18/17 20:12 100 Nasal Cannula 2.00 01/18/17 20:00 98.7 108 27 107/80 100 01/18/17 20:00 108 01/18/17 18:00 108 01/18/17 17:00 116 01/18/17 16:00 115 01/18/17 16:00 98.2 119 30 109/81 100 01/18/17 15:01 99 01/18/17 15:00 98 01/18/17 14:00 97 01/18/17 13:00 95 01/18/17 12:59 95 01/18/17 12:00 97.7 96 97/69 100 01/18/17 12:00 96 01/18/17 11:00 96 01/18/17 11:00 96 105/69 100 01/18/17 10:00 96 01/18/17 10:00 96 21 103/71 100 01/18/17 09:00 93 46 113/79 99 01/18/17 08:47 100 Nasal Cannula 2.00 Physical Exam GENERAL: Well-nourished, well-developed patient in no apparent distress. NECK: No JVD. No carotid bruit. CARDIOVASCULAR: tachycardic Regular S1/S2 no murmur, rub, or gallop. RESPIRATORY: No accessory muscle use. Clear to auscultation. Breath sounds equal bilaterally. GASTROINTESTINAL: Abdomen soft, non-tender, nondistended. MUSCULOSKELETAL: Extremities without clubbing, cyanosis, or edema. Laboratory Laboratory Tests Test 01/18/17 01/18/17 01/19/17 17:06 20:32 05:21 Blood Gas Puncture Site RT RADIAL Blood Gas Patient Temperature 98.6 Blood Gas HCO3 14 Blood Gas Base Excess -9.9 Blood Gas Oxygen Saturation 93 Arterial Blood pH 7.44 Arterial Blood Partial 20 Pressure CO2 Arterial Blood Partial 86 Pressure O2 Arterial Blood Oxygen Content 16.5 Arterial Blood 1.7 Carboxyhemoglobin Arterial Blood Methemoglobin 1.0 Blood Gas Hemoglobin 12.5 Oxygen Delivery Device NASAL CANNULA Blood Gas Liter Flow 2 Lactic Acid Level 4.7 2.6 White Blood Count 9.1 Red Blood Count 3.81 Hemoglobin 11.6 Hematocrit 34.4 Mean Corpuscular Volume 90.2 Mean Corpuscular Hemoglobin 30.4 Mean Corpuscular Hemoglobin 33.8 Concent Red Cell Distribution Width 18.6 Platelet Count 221 Mean Platelet Volume 7.8 Neutrophils (%) (Auto) 64.9 Lymphocytes (%) (Auto) 21.8 Monocytes (%) (Auto) 11.2 Eosinophils (%) (Auto) 1.5 Basophils (%) (Auto) 0.6 Neutrophils # (Auto) 5.9 Lymphocytes # (Auto) 2.0 Monocytes # (Auto) 1.0 Eosinophils # (Auto) 0.1 Basophils # (Auto) 0.1 CBC Comment AUTO DIFF Prothrombin Time 16.7 Prothromb Time International 1.5 Ratio Sodium Level 133 Potassium Level 3.5 Chloride Level 98 Carbon Dioxide Level 24.1 Anion Gap 11 Blood Urea Nitrogen 55 Creatinine 1.63 Estimat Glomerular Filtration 38 Rate Random Glucose 131 Calcium Level 8.8 Ammonia 50 Random Vancomycin Level 9.4 Date/Time Procedure Status Source Growth 01/17/17 19:30 Influenza Types A,B Antigen (VIVIANA) - Final Complete Nasal Aspirate NEGATIVE FOR FLU A AND B ANTIGEN.... 01/17/17 16:27 Aerobic Blood Culture - Preliminary Resulted Blood Peripheral NO GROWTH IN 1 DAY 01/17/17 16:27 Anaerobic Blood Culture - Preliminary Resulted Blood Peripheral NO GROWTH IN 1 DAY 01/17/17 16:10 Urine Culture - Preliminary Resulted Urine Catheterized Urine NO GROWTH IN 24 HOURS. Result Diagram: 01/19/1752001/19/17520 Assessment and Plan Problem List: (1) Cardiomyopathy (2) Congestive heart failure (3) CAD (coronary artery disease) Assessment and Plan EF 25%, we will add RUPALI-i/ARB and/or BB as tolerated. consider gentle diuresis. Further recommendation per Dr. Olson Problem Qualifiers (1) Congestive heart failure: Qualified Code: I50.20 - Systolic congestive heart failure, unspecified congestive heart failure chronicity (2) CAD (coronary artery disease): Slick Crespo Jan 19, 2017 08:42
[2017-01-19 08:44] LABS: PLATELET ESTIMATE SMEAR NORMAL (NORMAL); PLATELET MORPHOLOGY NORMAL (NORMAL); POLYCHROMASIA 2.2 % (0.0-1.9); SCAN/DIFF FINAL DIFF MANUAL
[2017-01-19] MEDS: ARTIFICIAL TEARS OPTH SOLN 15 ML BTL EACH EYE SCH ×3 (09:14→17:18)
[2017-01-19] MEDS: ASPIRIN 81 MG CHEW TAB CHEW SCH (09:14)
[2017-01-19] MEDS: SODIUM BICARBONATE 8.4% INJ 150 MEQ in DEXTROSE 5% IN WATE 1000ML INJ 850 ML IV SCH ×2 (09:14)
[2017-01-19] MEDS: PANTOPRAZOLE SODIUM 40 MG VIAL IV SCH (09:14)
[2017-01-19] MEDS: MEGESTROL ACETATE SUSP 400 MG/10 ML CUP PO SCH ×2 (09:14→16:11)
[2017-01-19] MEDS: MULTIVITAMIN TAB PO SCH (09:14)
[2017-01-19] MEDS: DOCUSATE SODIUM 50 MG/SENNA 8.6 MG TAB PO SCH ×2 (09:14→21:00)
[2017-01-19] MEDS: SODIUM CHLORIDE 0.9% FLUSH 10 ML FLUSH IV FLUSH SCH ×2 (10:34→21:29)
[2017-01-19] MEDS ORDERED: VANCOMYCIN INJ 1,250 MG in SODIUM CHLOR 0.9% 250 ML INJ 250 ML IV ONE (12:00)
[2017-01-19] MEDS: SODIUM CHLOR 0.9% 1000 ML INJ 1,000 ML IV SCH (16:06)
[2017-01-19] MEDS ORDERED: PILL SPLITTER OTHER PRN (16:15)
--- NOTE | 2017-01-19 16:16 | HHI.CCPN ---
Subjective Remarks/Hospital Course 71-year-old female. Date of admission 01/17/2017. Past medical history includes prior CVA with right-sided weakness, a flutter status ablation 2069, chronic kidney disease stage III sees Dr. Cunningham, coronary artery disease sees [facility] cardiology, hypertension, chronic systolic heart failure ejection fraction 20%, COPD, dyslipidemia and diabetes. In September, patient had prolonged hospitalization for CVA with right-sided hemiparesis and aphasia. She was seen in rehabilitation. And eventually discharged to care home. One week ago, patient was made hospice per physician. Daughter Triny Amor rescinded and patient was brought to [facility] for further evaluatio CT head negative. CT chest with cardiac megaly, small pleural effusion. No definite elevated troponin, acute kidney injury creatinine 2.7, leukocytosis, lactic acidosis and 9.3. Patient is currently complaining of nausea and vomiting in his throat twice daily. No abdominal pain however. CT abdomen/ pelvis revealed no acute findings. Received 1 L normal saline ED due to hypotension is currently hemodynamically stable. Subjective: 01/18: Patient complains of being hungry this a.m., nausea and vomiting resolved. Ice chips tolerated well. Plan to advance to clear liquid diet. Patient this afternoon slightly lethargic, but easily arousable. ABG obtained rule out CO2 narcosis, Zoloft placed on hold. 01/19: Patient tolerating clear liquid diet with Ensure supplementation. Patient was noted to be tachycardic heart rate in the 120s, metoprolol when necessary being administered. Plan to resume metoprolol at lower dose 12.5 mg, if hemodynamically tolerated. Bacteremia noted gram-negative rods, patient's on Zosyn, leukocytosis resolved. Objective Vital Signs Date Time Temp Pulse Resp B/P Pulse Ox O2 Delivery O2 Flow Rate FiO2 01/19/17 14:00 125 01/19/17 12:00 97.0 24 98/64 100 01/19/17 10:07 Nasal Cannula 2.00 Intake and Output 01/18/17 01/18/17 01/19/17 08:00 16:00 00:00 Intake Total 436 ml 1389 ml 951 ml Output Total 660 ml 425 ml 300 ml Balance -224 ml 964 ml 651 ml Result Diagram: 01/19/17 0521 01/19/17 0521 Other Results Microbiology Date/Time Procedure Status Source Growth 01/17/17 16:10 Urine Culture - Final Complete Urine Catheterized Urine NO GROWTH IN 48 HOURS. 01/17/17 19:30 Influenza Types A,B Antigen (VIVIANA) - Final Complete Nasal Aspirate NEGATIVE FOR FLU A AND B ANTIGEN.... Laboratory Tests Test 01/18/17 17:06 Blood Gas Puncture Site RT RADIAL Blood Gas Patient Temperature 98.6 Blood Gas HCO3 14 mmol/L (22-26) Blood Gas Base Excess -9.9 mmol/L (-2-2) Blood Gas Oxygen Saturation 93 % (90-100) Arterial Blood pH 7.44 (7.380-7.420) Arterial Blood Partial 20 mmHg (38-42) Pressure CO2 Arterial Blood Partial 86 mmHg Pressure O2 (61-120) Arterial Blood Oxygen Content 16.5 Vol % (12.0-20.0) Arterial Blood 1.7 % (0-4) Carboxyhemoglobin Arterial Blood Methemoglobin 1.0 % (0-2) Blood Gas Hemoglobin 12.5 G/DL (12.0-16.0) Oxygen Delivery Device NASAL CANNULA Blood Gas Liter Flow 2 L/M Imaging Last Impressions Chest X-Ray 01/17/17 1556 Signed Impressions: Service Date/Time: Tuesday, January 17, 2017 16:07 - CONCLUSION: 1. Left basilar opacity may represent atelectasis, consolidation, and/or pleural effusion. 2. Stable enlargement of the cardiac silhouette within abnormal cardiac shape. Mello Dorman MD Head CT 01/17/17 0000 Signed Impressions: Service Date/Time: Tuesday, January 17, 2017 17:13 - CONCLUSION: Negative for an acute process. Herve Fam MD FACR Chest CT 01/17/17 0000 Signed Impressions: Service Date/Time: Tuesday, January 17, 2017 17:18 - CONCLUSION: Cardiomegaly. Small right effusion. Mild basilar atelectasis. Mello Cameron MD Abdomen/Pelvis CT 01/17/17 0000 Signed Impressions: Service Date/Time: Tuesday, January 17, 2017 17:18 - CONCLUSION: Massive cardiomegaly without pericardial effusion. Minimal failure with small right pleural effusion and trace ascites. There is no gastric distention. Herve Fam MD FACR Objective Remarks GENERAL: Elderly female lethargic, but easily arousable and oriented SKIN: Warm and dry. HEAD: Atraumatic. Normocephalic. EYES: Pupils equal and round. No scleral icterus. No injection or drainage. ENT: No nasal bleeding or discharge. Mucous membranes pink and moist. Uvula midline NECK: Trachea midline. No JVD. CARDIOVASCULAR: Regular rate and rhythm. Telemetry normal sinus rhythm RESPIRATORY: No accessory muscle use. Clear to auscultation. Breath sounds equal bilaterally. Nasal cannula GASTROINTESTINAL: Abdomen soft, non-tender, nondistended. Hepatic and splenic margins not palpable. MUSCULOSKELETAL: Extremities without clubbing, cyanosis, or edema. No obvious deformities. NEUROLOGICAL: Awake and alert. No obvious cranial nerve deficits. Motor grossly within normal limits. Five out of 5 muscle strength in the arms and legs. Normal speech. PSYCHIATRIC: Appropriate mood and affect; insight and judgment normal. 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 Velazquez Hypertension Dyslipidemia Lactic acidosis Status post AICD placement Elevated troponin 2-D echo 11/08 revealed EF 20-25%. Global hypokinesis. Akinesis and scarring of the inferior posterior margin. Moderate MR/TR. Mild left atrial dilation. DARLIN 55 mmHg Status post 1 L normal saline in ED. Holding Zocor 40 mg by mouth daily for dyslipidemia. Resume when clinically indicated Holding Bumex 2 mg by mouth twice a day and spironolactone 25 mg at night due to hypotension and acute kidney injury.. Trend lactates every 6 hours until cleared 4.6-> 2.6 today Echocardiogram 01/18-ejection fraction 2024 percent. Possible basal posterior and apical kinesis and severe hypokinesis of all other segments Dr. Olson is her school occupational therapist Continue aspirin 81 mg by mouth daily Metoprolol 5 milligrams IV for elevated heart rate, will resume metoprolol 12.5 mg by mouth if IV dosing tolerated Resp: History COPD Small right pleural effusion Nasal cannula to maintain saturations greater than equal to 92% Incentive spirometry while awake Duo nebs every 6 hours and albuterol every 2 hours when necessary dyspnea CT chest 01/08 revealed massive cardiomegaly, small right pleural effusion 01/18 Metabolic acidosis was noted patient was placed on bicarbonate infusion, anion gap improved, discontinued on 01/19 GI: Nausea/vomiting-resolved Elevated AST Clear liquid diet advance diet as tolerated Protonix for GI prophylaxis PeriColace for bowel regimen On Megace for anorexia. CT abdomen/pelvis revealed no signs of bowel obstruction. : Cavanaugh catheter for accurate I's and O's in a critically ill patient Endo: Diabetes mellitus Sliding-scale insulin with Accu-Cheks every 6 hours to maintain euglycemia/low regimen Holding glipizide 10 mg before meals TSH and cortisol WNL Renal: Acute kidney injury in the setting of chronic kidney disease Baseline creatinine around 1.7 Avoid nephrotoxic drugs Accurate I's and O's Monitor urine output Check urine electrolytes and eosinophils No hydronephrosis on CT abdomen/pelvis Dr. Cunningham is her outside sales engineer Heme: Leukocytosis-resolved Elevated PT/INR and PTT Monitor CBC daily. Follow trends Holding Eliquis 5 mg BID, INR 1.7 01/17 fibrinogen WNL ID: Severe sepsis source pneumonia aspiration? UTI? Day 3 vancomycin/Zosyn Pertinent cultures - Blood cultures 2 01/17 -gram-negative carla - Urine culture 01/17 - pending Sputum culture-pending influenza A & B-negative FEN: Hyponatremia Hyperkalemia-resolved Hyper-magnesium Hyperphosphatemia Resume normal saline at 84 cc an hour. Received hyperkalemia protocol in ED. Re urine sodium/osm and serum osm and uric acid MSK: PT evaluate and treat Access - Utilize peripheral IV. Central line if indicated Prophylaxis - GI -Protonix - DVT - SCD/holding pharmacological prophylaxis with eliquis is due to acute kidney injury creatinine greater than 1.5 Level 2 Discussed with daughter Ellie and CNC OPERATOR at bedside. Physician Marlen Suarez MD Jan 19, 2017 16:16
[2017-01-19] MEDS ORDERED: METOPROLOL TARTRATE 25 MG TAB PO ONE (19:00)
[2017-01-19] MEDS: LORazepam 1 MG TAB PO PRN (23:19)
[2017-01-20] VITALS (12 sets, daily range): BP systolic 101–106; BP diastolic 64–77; PULSE 90–125; RESP 14–29; TEMP 96.1–97.6; O2SAT 100
[2017-01-20] MEDS: RESP: ALBUTEROL 2.5 MG/IPRATROPIUM 0.5 MG NEB (SCH) INH ×4 (04:00→19:53)
[2017-01-20] MEDS: CHLORHEXIDINE GLUCONATE 2 % 1 PACK (2 CLOTHS) TOP SCH (04:00)
[2017-01-20] MEDS: PIPERACIL-TAZO 2.25 GM PREMIX 50 ML IV SCH ×4 (04:46→23:31)
[2017-01-20] MEDS: SODIUM CHLOR 0.9% 1000 ML INJ 1,000 ML IV SCH ×2 (04:46→20:34)
[2017-01-20 05:19] LABS: AUTOMATED NEUTROPHIL # 5.9 TH/MM3 (1.8-7.7); BASOPHIL # 0.1 TH/MM3 (0-0.2); BASOPHIL % 0.7 % (0.0-2.0); EOSINOPHIL # 0.3 TH/MM3 (0-0.4); EOSINOPHIL % 2.7 % (0.0-4.0); HEMATOCRIT 36.9 % (35.0-46.0); LYMPH % 27.5 % (9.0-44.0); LYMPHOCYTE # 2.7 TH/MM3 (1.0-4.8); MEAN CORPUSCULAR HEMOGLOBIN 30.4 PG (27.0-34.0); MEAN CORPUSCULAR HGB CONC 33.1 % (32.0-36.0); MONO % 9.1 % (0.0-8.0); PLATELET COUNT 244 TH/MM3 (150-450); RED BLOOD COUNT 4.02 MIL/MM3 (4.00-5.30); RED CELL DISTRIBUTION WIDTH 18.8 % (11.6-17.2); WHITE BLOOD COUNT 9.9 TH/MM3 (4.0-11.0)
[2017-01-20 05:29] LABS: HEMO FLAGS AUTO DIFF
[2017-01-20 05:43] LABS: BICARBONATE 23.6 MEQ/L (21.0-32.0); MAGNESIUM 2.6 MG/DL (1.5-2.5); POTASSIUM 4.1 MEQ/L (3.5-5.1)
[2017-01-20] MEDS: INSULIN NovoLIN REGULAR SUPPLEMENTAL SCALE SQ SCH ×4 (06:00→23:30)
[2017-01-20 06:18] LABS: PLATELET ESTIMATE SMEAR NORMAL (NORMAL); SCAN/DIFF AUTO DIFF CONFIRMED
[2017-01-20 06:19] LABS: PLATELET MORPHOLOGY NORMAL (NORMAL)
[2017-01-20] MEDS: ARTIFICIAL TEARS OPTH SOLN 15 ML BTL EACH EYE SCH ×3 (09:00→17:34)
[2017-01-20] MEDS: DOCUSATE SODIUM 50 MG/SENNA 8.6 MG TAB PO SCH ×2 (09:05→20:34)
[2017-01-20] MEDS: ASPIRIN 81 MG CHEW TAB CHEW SCH (09:05)
[2017-01-20] MEDS: METOPROLOL TARTRATE 25 MG TAB PO SCH ×2 (09:06→20:34)
[2017-01-20] MEDS: SODIUM CHLORIDE 0.9% FLUSH 10 ML FLUSH IV FLUSH SCH ×2 (09:06→20:34)
[2017-01-20] MEDS: MEGESTROL ACETATE SUSP 400 MG/10 ML CUP PO SCH ×2 (09:06→17:34)
[2017-01-20] MEDS: MULTIVITAMIN TAB PO SCH (09:06)
[2017-01-20] MEDS: PANTOPRAZOLE SODIUM 40 MG VIAL IV SCH (09:07)
--- NOTE | 2017-01-20 09:47 | HHI.CCPN ---
Subjective Remarks/Hospital Course 71-year-old female. Date of admission 01/17/2017. Past medical history includes prior CVA with right-sided weakness, a flutter status ablation 2069, chronic kidney disease stage III sees Dr. Cunningham, coronary artery disease sees [facility] cardiology, hypertension, chronic systolic heart failure ejection fraction 20%, COPD, dyslipidemia and diabetes. In September, patient had prolonged hospitalization for CVA with right-sided hemiparesis and aphasia. She was seen in rehabilitation. And eventually discharged to [facility]. One week ago, patient was made hospice per physician. Daughter Triny Amor rescinded and patient was brought to [facility] for further evaluatio CT head negative. CT chest with cardiac megaly, small pleural effusion. No definite elevated troponin, acute kidney injury creatinine 2.7, leukocytosis, lactic acidosis and 9.3. Patient is currently complaining of nausea and vomiting in his throat twice daily. No abdominal pain however. CT abdomen/ pelvis revealed no acute findings. Received 1 L normal saline ED due to hypotension is currently hemodynamically stable. Subjective: 01/18: Patient complains of being hungry this a.m., nausea and vomiting resolved. Ice chips tolerated well. Plan to advance to clear liquid diet. Patient this afternoon slightly lethargic, but easily arousable. ABG obtained rule out CO2 narcosis, Zoloft placed on hold. 01/19: Patient tolerating clear liquid diet with Ensure supplementation. Patient was noted to be tachycardic heart rate in the 120s, metoprolol when necessary being administered. Plan to resume metoprolol at lower dose 12.5 mg, if hemodynamically tolerated. Bacteremia noted gram-negative rods, patient's on Zosyn, leukocytosis resolved. 01/20: Afebrile .The patient is now tolerating a renal diet. Metoprolol PO instituted, the patient continues to be tachycardic. Lactate level slightly elevated 2.3, slightly secondary to underlying cardiac etiology with noted BNP greater than 5000. Patient remains lethargic, noted ammonia level, lactulose instituted. Objective Vital Signs Date Time Temp Pulse Resp B/P Pulse Ox O2 Delivery O2 Flow Rate FiO2 01/20/17 06:00 124 01/20/17 04:00 97.6 25 103/75 100 01/19/17 20:35 Nasal Cannula 3.00 Intake and Output 01/19/17 01/19/17 01/20/17 08:00 16:00 00:00 Intake Total 861 ml 1375 ml 880 ml Output Total 300 ml 200 ml 250 ml Balance 561 ml 1175 ml 630 ml Result Diagram: 01/20/17 0459 01/20/17 0459 Other Results Microbiology Date/Time Procedure Status Source Growth 01/17/17 16:10 Urine Culture - Final Complete Urine Catheterized Urine NO GROWTH IN 48 HOURS. 01/17/17 19:30 Influenza Types A,B Antigen (VIVIANA) - Final Complete Nasal Aspirate NEGATIVE FOR FLU A AND B ANTIGEN.... Imaging Last Impressions Chest X-Ray 01/17/17 1556 Signed Impressions: Service Date/Time: Tuesday, January 17, 2017 16:07 - CONCLUSION: 1. Left basilar opacity may represent atelectasis, consolidation, and/or pleural effusion. 2. Stable enlargement of the cardiac silhouette within abnormal cardiac shape. Mello Dorman MD Head CT 01/17/17 0000 Signed Impressions: Service Date/Time: Tuesday, January 17, 2017 17:13 - CONCLUSION: Negative for an acute process. Herve Fam MD FACR Chest CT 01/17/17 0000 Signed Impressions: Service Date/Time: Tuesday, January 17, 2017 17:18 - CONCLUSION: Cardiomegaly. Small right effusion. Mild basilar atelectasis. Mello Cameron MD Abdomen/Pelvis CT 01/17/17 0000 Signed Impressions: Service Date/Time: Tuesday, January 17, 2017 17:18 - CONCLUSION: Massive cardiomegaly without pericardial effusion. Minimal failure with small right pleural effusion and trace ascites. There is no gastric distention. Herve Fam MD FACR Objective Remarks GENERAL: Elderly female lethargic, but easily arousable and oriented SKIN: Warm and dry. HEAD: Atraumatic. Normocephalic. EYES: Pupils equal and round. No scleral icterus. No injection or drainage. ENT: No nasal bleeding or discharge. Mucous membranes pink and moist. Uvula midline NECK: Trachea midline. No JVD. CARDIOVASCULAR: Regular rate and rhythm. Telemetry normal sinus rhythm RESPIRATORY: No accessory muscle use. Clear to auscultation. Breath sounds equal bilaterally. Nasal cannula GASTROINTESTINAL: Abdomen soft, non-tender, nondistended. Hepatic and splenic margins not palpable. MUSCULOSKELETAL: Extremities without clubbing, cyanosis, or edema. No obvious deformities. NEUROLOGICAL: Awake and alert. No obvious cranial nerve deficits. Motor grossly within normal limits. Five out of 5 muscle strength in the arms and legs. Normal speech. PSYCHIATRIC: Appropriate mood and affect; insight and judgment normal. 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 Velazquez Hypertension Dyslipidemia Lactic acidosis is likely cardiac etiology Status post AICD placement Elevated troponin 2-D echo 11/08 revealed EF 20-25%. Global hypokinesis. Akinesis and scarring of the inferior posterior margin. Moderate MR/TR. Mild left atrial dilation. DARLIN 55 mmHg Status post 1 L normal saline in ED. Holding Zocor 40 mg by mouth daily for dyslipidemia. Resume when clinically indicated Holding Bumex 2 mg by mouth twice a day and spironolactone 25 mg at night due to hypotension and acute kidney injury.. 01/20 Lactate 2.3 Echocardiogram 01/18-ejection fraction 2024 percent. Possible basal posterior and apical kinesis and severe hypokinesis of all other segments Dr. Olson is her call specialist Continue aspirin 81 mg by mouth daily Metoprolol 5 milligrams IV for elevated heart rate, will resume metoprolol 12.5 mg by mouth if IV dosing tolerated 01/20 BNP > 5000 Resp: History COPD Small right pleural effusion Nasal cannula to maintain saturations greater than equal to 92%, early 2 L/m Incentive spirometry while awake Duo nebs every 6 hours and albuterol every 2 hours when necessary dyspnea CT chest 01/08 revealed massive cardiomegaly, small right pleural effusion 01/18 Metabolic acidosis was noted patient was placed on bicarbonate infusion, anion gap improved, discontinued on 01/19 GI: Nausea/vomiting-resolved Elevated AST 1800 ADA diet Protonix for GI prophylaxis PeriColace for bowel regimen On Megace for anorexia. CT abdomen/pelvis revealed no signs of bowel obstruction. : Cavanaugh catheter for accurate I's and O's in a critically ill patient Endo: Diabetes mellitus Sliding-scale insulin with Accu-Cheks every 6 hours to maintain euglycemia/low regimen Holding glipizide 10 mg before meals TSH and cortisol WNL Renal: Acute kidney injury in the setting of chronic kidney disease Baseline creatinine around 1.7 Avoid nephrotoxic drugs Accurate I's and O's Monitor urine output Check urine electrolytes and eosinophils No hydronephrosis on CT abdomen/pelvis Dr. Cunningham is her outcome analyst 01/20 Restart Bumex 1 mg twice a day, patient's home medication Heme: Leukocytosis-resolved Elevated PT/INR and PTT Monitor CBC daily. Follow trends Holding Eliquis 5 mg BID, INR 1.3 01/17 fibrinogen WNL ID: Severe sepsis source pneumonia aspiration? UTI? Day 4 vancomycin/Zosyn Pertinent cultures - Blood cultures 2 01/17 -gram-negative carla - Urine culture 01/17 - pending Sputum culture-pending influenza A & B-negative FEN: Hyponatremia Hyperkalemia-resolved Hyper-magnesium Hyperphosphatemia 01/20 Decrease normal saline at 42 cc an hour. Received hyperkalemia protocol in ED. Re urine sodium/osm and serum osm and uric acid MSK: PT evaluate and treat Access - Utilize peripheral IV. Central line if indicated Prophylaxis - GI -Protonix - DVT - SCD/holding pharmacological prophylaxis with eliquis is due to acute kidney injury creatinine greater than 1.5 Level 2 Discussed with daughter Ellie and MEDICAL WRITER at bedside.All questions answered. Physician Marlen Suarez MD Jan 20, 2017 09:47
[2017-01-20] MEDS: METOPROLOL TARTRATE 5 MG/5 ML VIAL IV PUSH PRN (10:55)
[2017-01-20] MEDS: LACTULOSE SYRUP 20 GM/30 ML CUP PO SCH (11:04)
[2017-01-20] MEDS: BUMETANIDE 1 MG TAB PO SCH (13:43)
[2017-01-20] MEDS: LORazepam 1 MG TAB PO PRN (22:32)
[2017-01-21] VITALS (29 sets, daily range): BP systolic 91–129; BP diastolic 55–79; PULSE 102–133; RESP 25–47; TEMP 97–98.6; O2SAT 99–100
[2017-01-21] MEDS: CHLORHEXIDINE GLUCONATE 2 % 1 PACK (2 CLOTHS) TOP SCH (02:32)
[2017-01-21] MEDS: RESP: ALBUTEROL 2.5 MG/IPRATROPIUM 0.5 MG NEB (SCH) INH ×4 (03:11→20:12)
[2017-01-21] MEDS: PIPERACIL-TAZO 2.25 GM PREMIX 50 ML IV SCH (03:53)
[2017-01-21] MEDS: INSULIN NovoLIN REGULAR SUPPLEMENTAL SCALE SQ SCH ×3 (06:00→18:47)
[2017-01-21] MEDS: BUMETANIDE 1 MG TAB PO SCH (06:00)
[2017-01-21 06:36] LABS: BICARBONATE 16.7 MEQ/L (21.0-32.0); INDIRECT BILIRUBIN 1.1 MG/DL (0.0-0.8); MAGNESIUM 2.6 MG/DL (1.5-2.5); POTASSIUM 5.3 MEQ/L (3.5-5.1); TOTAL BILIRUBIN ADULT 2.3 MG/DL (0.2-1.0)
[2017-01-21] MEDS ORDERED: DEXT 5%-NACL 0.9% 1000 ML INJ 1,000 ML IV SCH (08:00)
--- NOTE | 2017-01-21 08:11 | PD.CARD.PN ---
Subjective Subjective Remarks no cv complaints Objective Vital Signs / I&O Vital Signs Date Time Temp Pulse Resp B/P Pulse Ox O2 Delivery O2 Flow Rate FiO2 01/21/17 06:00 116 01/21/17 04:00 114 01/21/17 04:00 97.7 114 33 108/72 100 01/21/17 02:00 114 01/21/17 00:00 111 01/21/17 00:00 97.0 111 29 96/75 100 01/20/17 22:00 110 01/20/17 20:00 103 01/20/17 20:00 96.1 103 21 102/64 100 01/20/17 18:00 90 01/20/17 16:00 97.2 109 22 101/77 100 01/20/17 16:00 109 01/20/17 14:00 103 01/20/17 12:00 116 01/20/17 12:00 97.1 116 16 106/73 100 01/20/17 10:00 124 I/O 01/20/17 01/20/17 01/20/17 01/21/17 01/21/17 01/21/17 07:00 15:00 23:00 07:00 15:00 23:00 Intake Total 925 ml 1202 ml 326 ml Output Total 200 ml 150 ml 300 ml 250 ml Balance 725 ml 1052 ml 26 ml -250 ml Intake Oral 240 ml 720 ml IV Total 685 ml 482 ml 326 ml Output Urine Total 200 ml 150 ml 300 ml 250 ml # Bowel Movements 1 Physical Exam GENERAL: Well-nourished, well-developed patient in no apparent distress. NECK: No JVD. No carotid bruit. CARDIOVASCULAR: tachycardic, Regular S1/S2 no murmur, rub, or gallop. RESPIRATORY: No accessory muscle use. Clear to auscultation. Breath sounds equal bilaterally. GASTROINTESTINAL: Abdomen soft, non-tender, nondistended. MUSCULOSKELETAL: Extremities without clubbing, cyanosis, or edema. Laboratory Laboratory Tests Test 01/21/17 05:59 Sodium Level 134 MEQ/L Potassium Level 5.3 MEQ/L Chloride Level 95 MEQ/L Carbon Dioxide Level 16.7 MEQ/L Anion Gap 22 MEQ/L Blood Urea Nitrogen 61 MG/DL Creatinine 2.39 MG/DL Estimat Glomerular Filtration 24 ML/MIN Rate Random Glucose 33 MG/DL Calcium Level 10.1 MG/DL Phosphorus Level 6.2 MG/DL Magnesium Level 2.6 MG/DL Total Bilirubin 2.3 MG/DL Direct Bilirubin 1.2 MG/DL Indirect Bilirubin 1.1 MG/DL Aspartate Amino Transf 129 U/L (AST/SGOT) Alanine Aminotransferase 157 U/L (ALT/SGPT) Alkaline Phosphatase 109 U/L Ammonia 58 MCMOL/L Total Protein 7.2 GM/DL Albumin 3.2 GM/DL Random Vancomycin Level 14.4 COMMENT Assessment and Plan Problem List: (1) Cardiomyopathy (2) Congestive heart failure (3) CAD (coronary artery disease) Assessment and Plan EF 25%, we will add RUPALI-i/ARB and/or BB as tolerated Worsening renal and liver function We are unable to add rupali-i or BB due to hypotension Continue supportive measures, sign off call with further questions Problem Qualifiers (1) Congestive heart failure: Qualified Code: I50.20 - Systolic congestive heart failure, unspecified congestive heart failure chronicity (2) CAD (coronary artery disease): Slick Crespo Jan 21, 2017 08:11
[2017-01-21] MEDS: DOCUSATE SODIUM 50 MG/SENNA 8.6 MG TAB PO SCH ×2 (09:00→19:48)
[2017-01-21] MEDS: SODIUM CHLORIDE 0.9% FLUSH 10 ML FLUSH IV FLUSH SCH ×2 (09:00→19:47)
[2017-01-21] MEDS: ASPIRIN 81 MG CHEW TAB CHEW SCH (09:50)
[2017-01-21] MEDS: METOPROLOL TARTRATE 25 MG TAB PO SCH (09:50)
[2017-01-21] MEDS: PANTOPRAZOLE SODIUM 40 MG VIAL IV SCH (09:50)
[2017-01-21] MEDS: MULTIVITAMIN TAB PO SCH (09:50)
[2017-01-21] MEDS: LACTULOSE SYRUP 20 GM/30 ML CUP PO SCH (09:50)
[2017-01-21] MEDS: MEGESTROL ACETATE SUSP 400 MG/10 ML CUP PO SCH ×2 (09:50→18:12)
[2017-01-21] MEDS: ARTIFICIAL TEARS OPTH SOLN 15 ML BTL EACH EYE SCH ×3 (09:52→18:12)
--- NOTE | 2017-01-21 10:04 | PD.CONS ---
Consult Service Palliative Care . Consult Requested By Dr. Mayfield . Primary Care Physician Unknown . Reason for Consultation a. To assist with evaluation and management of symptoms including: Confusion , debility, poor appetite b. To assist medical decision maker(s) with: better understanding of current medical conditions; weighing benefits/burdens of medical treatment options; making medical treatment decisions. . HPI History of Present Illness Ms. Salinas is a 71 year old female who presented to [facility] ED on 2016 via EMS for evaluation of altered mental status. Her past medically history is significant for atrial flutter, history of CVA in 10/2016, hypertension, HLD, COPD, DM, HTN, CHF (EF 2025%), cardiomyopathy, CKD and CAD. Patient has had multiple hospitalizations in the past 3 months, most recent admission 11/22/2016 for a defibrillator discharge. The patient was discharged to rehabilitation on 11/29/2016. The patient's daughter reported the patient's functional status improved while at rehabilitation, and she was ambulating on her own. Apparently the patient became increasingly weak over a 3-4 day period. She became noncommunicative and stopped walking and the family decided to call for help. The daughter reported that the patient was placed on hospice one week ago on the recommendations of her PCP; hospice was revoked prior and the family requested that the patient be made a FULL CODE. Additional diagnostic findings while in the ED include: * Vital signs: Pulse 140, respirations 16, BP 109/77, oxygen saturation 96% on room air * WBC: 15.2, hemoglobin 12.7, hematocrit 41.2, platelets 253, neutrophils 53.3% * Sodium: 128, potassium 5.6, chloride 93, carbon dioxide 16.0, glucose 153, calcium 10.2, phosphorus 6.7, magnesium 3.2 * BUN: 71, creatinine 2.74, GFR 21 * The total bilirubin: 1.2, AST 52, ALT 48, alkaline phosphatase 97 * Total creatine kinase: 98 * Troponin: 1.18 * BNP: >5000 * Total protein: 8.0, albumin 3.5 * Lipase: 73 * PT: 19.8, INR 1.7, APTT 31.3 * Fibrinogen: 471 * Urinalysis with protein +30 and bacteria * CT head was negative for an acute process * Chest x-ray showed left basilar opacity which may represent atelectasis, consolidation and/or pleural effusion; stable enlargement of the cardiac silhouette with abnormal cardiac shape * Chest CT revealed cardiomegaly, small right effusion, mild basilar atelectasis. * CT abdomen/pelvis with massive cardiomegaly without pericardial effusion, minimal failure with mild right pleural effusion and trace ascites; there is no gastric distention. * EKG: Atrial fibrillation with RVR with aberrant conduction or ventricular premature complexes intraventricular conduction delay. Patient received 500ml bolus of fluid x 2. She was given broad-spectrum antibiotics, Zosyn and vancomycin. Cultures were obtained. Patient was then admitted for further evaluation and medical management of sepsis, likely secondary to pneumonia. Cardiology was consulted. 2-D echocardiogram on 01/18/17 showed severely reduced ventricular systolic function with EF 2025%; mild concentric left ventricular hypertrophy; mild left ventricular enlargement; possible basal posterior and apical akinesis and severe hypokinesis of all other segments; the anterior wall is poorly visualized; left atrial size is mildly dilated, normal right ventricular size and systolic function. 01/20/2017: Patient's oral intake remains poor, pocketing food. She is progressively more lethargic. Increasing ammonia level of 58. Patient is hypoglycemic with blood glucose of 38. Creatinine was noted to be worsening with elevation of potassium. Bacteremia noted to be bacillus. GI and infectious disease were consulted. Palliative Care was consulted to assist with symptom management and to discuss with the family the benefits and burdens of her current illnesses and the options regarding future care. . Function/Cognitive Trajectory Ms. Salinas is a 71 yo female with a complicated medical history that includes severe cardiomyopathy with EF 20%. She has experienced a acute decline, hospitalized 5 times in the past 3 moths. Patient had a prolonged hospitalization in October for a CVA with right-sided hemiparesis and aphasia. Her most recent hospitalization was in November most recent admission 11/22/2016 for a defibrillator discharge. Upon discharge the patient went to rehabilitation. The patient's daughter stated the patient's functional level improved with rehabilitation, and she returned home able to ambulate independently. Patient returned to the ED on 01/17/17 to be evaluated for increasing weakness and altered mental status. The patient was admitted with sepsis, now with multisystem organ dysfunction. . Review of Systems ROS Limitations: Clinical Condition, Altered Mental Status, Poor Historian Constitutional: COMPLAINS OF: Fatigue, Change in appetite (decreased appetite) , Generalized weakness Endocrine: DENIES: Polydipsia, Polyuria Ears, nose, mouth, throat: DENIES: Epistaxis Respiratory: COMPLAINS OF: Shortness of breath Cardiovascular: COMPLAINS OF: Lower Extremity Edema Gastrointestinal: DENIES: Abdominal pain, Black stools, Bloody stools, Diarrhea , Nausea, Vomiting Genitourinary: DENIES: Hematuria Hematologic/Lymphatics: COMPLAINS OF: Bruising Neurologic: COMPLAINS OF: Abnormal gait, Speech Problems, Poor Balance Psychiatric: COMPLAINS OF: Anxiety, Confusion Past Family Social History Coded Allergies: No Known Allergies (Unverified , 01/17/17) Per daughter, patient is not allergic to aspirin and has no allergies. Past Medical History Atrial flutter CVA HTN HLD COPD Diabetes type 2 Hypertension Chronic systolic CHF (EF 20%-25%) Cardiomyopathy CAD Chronic kidney disease . Past Surgical History Cholecystectomy Hysterectomy Pacemaker/ AICD Ablation 10/15/16 . Reported Medications Spironolactone 25 Mg Tab 25 Mg PO DAILY Aspirin Low Dose (Aspirin) 81 Mg Chew 81 Mg CHEW DAILY Multiple Vitamin 1 Tab 1 Tab PO DAILY . Current Medications Medications (Trade) Dose Ordered Sig/Gisela Route Start Time Stop Time Status Last Admin (NS Flush) 2 ml UNSCH PRN IV FLUSH 01/17/17 18:30 (NS Flush) 2 ml BID IV FLUSH 01/17/17 21:00 01/20/17 20:34 (Tylenol) 650 mg Q6H PRN PO 01/17/17 18:30 (Morris 5-325 Mg) 1 tab Q4H PRN PO 01/17/17 18:30 01/19/17 22:50 (Morphine Inj) 2 mg Q2H PRN IV 01/17/17 18:30 (Protonix Inj) 40 mg DAILY IV 01/18/17 09:00 01/20/17 09:07 (Tears Naturale Opth Soln) 1 drop TID EACH EYE 01/18/17 09:00 01/19/17 09:14 (Zofran Inj) 4 mg Q6H PRN IV 01/17/17 18:30 Miscellaneous Information 1 Q361D XX 01/17/17 18:30 (Chlorhexidine 2% Cloth) 3 pack Taper DAILY@04 TOP 01/18/17 04:00 01/14/18 03:59 01/21/17 02:32 (Chlorhexidine 2% Cloth) 3 pack UNSCH PRN TOP 01/17/17 18:30 (Carmen-Colace) 1 tab BID PO 01/17/17 21:00 01/20/17 09:05 (Milk Of Magnesia Liq) 30 ml Q12H PRN PO 01/17/17 18:30 (Senokot) 17.2 mg Q12H PRN PO 01/17/17 18:30 Bisacodyl 10 mg 10 mg DAILY PRN RECTAL 01/17/17 18:30 (Zosyn 2.25 Gm Premix) 50 ml @ 100 mls/hr Q6H IV 01/17/17 23:00 01/21/17 03:53 (Aspirin Chew) 81 mg DAILY CHEW 01/18/17 09:00 01/20/17 09:05 (Megace Liq) 400 mg BID@08,17 PO 01/18/17 08:00 01/20/17 17:34 (Zoloft) 50 mg DAILY PO 01/18/17 09:00 Hold 01/18/17 08:23 (Theragran) 1 tab DAILY PO 01/18/17 09:00 01/20/17 09:06 (D50w (Vial) Inj) 50 ml UNSCH PRN IV 01/17/17 18:45 01/21/17 06:09 (Glucagon Inj) 1 mg UNSCH PRN OTHER 01/17/17 18:45 (NovoLIN R SUPPLEMENTAL SCALE) 1 Q6HR SQ 01/18/17 00:00 01/19/17 17:28 (Lopressor Inj) 5 mg Q5M PRN IV PUSH 01/19/17 01:45 01/20/17 10:55 (Restoril) 15 mg HS PRN PO 01/19/17 01:45 01/19/17 21:29 (Pill Splitter) 1 ea UNSCH PRN OTHER 01/19/17 16:15 (Ativan) 1 mg Q8H PRN PO 01/19/17 23:15 01/20/17 22:32 (Lopressor) 12.5 mg Q12HR PO 01/20/17 09:00 01/20/17 20:34 (Lactulose Liq) 30 ml DAILY PO 01/20/17 09:30 01/20/17 11:04 Bumetanide 2 mg 2 mg BID@06,14 PO 01/20/17 14:00 01/21/17 06:00 Dextrose/Sodium Chloride 1,000 ml @ 42 mls/hr [id number] IV 01/21/17 08:00 (Vancomycin Inj/ NS 250 ml Inj) 250 ml @ 250 mls/hr ONCE ONCE IV 01/21/17 12:00 01/21/17 12:59 . Family History Patient's son (now ) with ESRD; Mother with heart disease and CVA . Substance Use Tobacco: Non-smoker Alcohol: Patient denies Prescription med abuse: None known Illicits: None known . Psychosocial History Patient is single and lives alone in [place]. She has a high school education. 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 Patient had 2 daughters and 1 son; her son had ESRD and is . . Spiritual/Cultural Factors Jehovah'S Witness sanya . Documented care wishes: Patient's family states the patient completed her "5 wishes", but it cannot be found at this time. No living will was completed. . Today's verbally stated goals: Patient is increasingly confused and unable to verbalize medical treatment goals at this time. . Family/friends goals: Palliative had a comprehensive discussion with the patient 2 daughters and the extended family. The hospital carrot harvester (Connor) and Palliative care WASHING MACHINE INSTALLER (Henny Irwin) were also present. Patient's family now verbalizing aggressive goals up to the point of cardiopulmonary resuscitation. CODE STATUS was changed to ALTERNATE CODE- ACLS medications only. Patient's defibrillator deactivated per patient's request. . Ethical and Legal Issues No known ethical and legal issues. . Physical Exam Vital Signs Date Time Temp Pulse Resp B/P Pulse Ox O2 Delivery O2 Flow Rate FiO2 01/21/17 06:00 116 01/21/17 04:00 114 01/21/17 04:00 97.7 114 33 108/72 100 01/21/17 02:00 114 01/21/17 00:00 111 01/21/17 00:00 97.0 111 29 96/75 100 01/20/17 22:00 110 01/20/17 20:00 103 01/20/17 20:00 96.1 103 21 102/64 100 01/20/17 18:00 90 01/20/17 16:00 97.2 109 22 101/77 100 01/20/17 16:00 109 01/20/17 14:00 103 01/20/17 12:00 116 01/20/17 12:00 97.1 116 16 106/73 100 01/20/17 10:00 124 01/20/17 01/21/17 19:00 07:00 Intake Total 1202 ml 326 ml Output Total 150 ml 550 ml Balance 1052 ml -224 ml Intake Oral 720 ml IV Total 482 ml 326 ml Output Urine Total 150 ml 550 ml # Bowel Movements 1 Exam CONSTITUTIONAL/GENERAL: This is a frail, elderly female patient who is critically ill with multiple organ dysfunction TUBES/LINES/DRAINS: PIV x 3, SCD, Cavanaugh, nasal cannula SKIN: No jaundice, rashes, or lesions. Ecchymoses on upper extremities. No wounds seen anteriorly. Skin temperature appropriate. Not diaphoretic. HEAD: Atraumatic. Normocephalic. EYES: Pupils equal and round and reactive. Extraocular motions intact. No scleral icterus. No injection or drainage. Fundi not examined. ENT: Hearing grossly normal. Nose without bleeding or purulent drainage. NECK: Trachea midline. Supple, nontender. No palpable thyroid enlargement or nodularity. CARDIOVASCULAR: Irregularly irregular. No JVD. RESPIRATORY/CHEST: Symmetric, unlabored respirations. Breath sounds diminished bilaterally. On nasal cannula GASTROINTESTINAL: Abdomen soft, non-tender, nondistended. No guarding. Bowel sounds present. GENITOURINARY: Without palpable bladder distension. Cavanaugh catheter in place. MUSCULOSKELETAL: Extremities without clubbing, cyanosis, or edema. LYMPHATICS: No palpable cervical or supraclavicular adenopathy. NEUROLOGICAL: Lethargy. Patient responds to some simple questions, does not follow commands. PSYCHIATRIC: No obvious anxiety/depression. No apparent hallucinations or other psychotic thought process. . Diagnostic Tests Laboratory Laboratory Tests Test 01/18/17 01/18/17 01/19/17 01/20/17 17:06 20:32 05:21 04:59 Blood Gas Puncture Site RT RADIAL Blood Gas Patient Temperature 98.6 Blood Gas HCO3 14 mmol/L (22-26) Blood Gas Base Excess -9.9 mmol/L (-2-2) Blood Gas Oxygen Saturation 93 % (90-100) Arterial Blood pH 7.44 (7.380-7.420) Arterial Blood Partial 20 mmHg (38-42) Pressure CO2 Arterial Blood Partial 86 mmHg Pressure O2 (61-120) Arterial Blood Oxygen Content 16.5 Vol % (12.0-20.0) Arterial Blood 1.7 % (0-4) Carboxyhemoglobin Arterial Blood Methemoglobin 1.0 % (0-2) Blood Gas Hemoglobin 12.5 G/DL (12.0-16.0) Oxygen Delivery Device NASAL CANNULA Blood Gas Liter Flow 2 L/M Lactic Acid Level 4.7 mmol/L 2.6 mmol/L 2.3 mmol/L (0.4-2.0) (0.4-2.0) (0.4-2.0) White Blood Count 9.1 TH/MM3 9.9 TH/MM3 (4.0-11.0) (4.0-11.0) Red Blood Count 3.81 MIL/MM3 4.02 MIL/MM3 (4.00-5.30) (4.00-5.30) Hemoglobin 11.6 GM/DL 12.2 GM/DL (11.6-15.3) (11.6-15.3) Hematocrit 34.4 % 36.9 % (35.0-46.0) (35.0-46.0) Mean Corpuscular Volume 90.2 FL 92.0 FL (80.0-100.0) (80.0-100.0) Mean Corpuscular Hemoglobin 30.4 PG 30.4 PG (27.0-34.0) (27.0-34.0) Mean Corpuscular Hemoglobin 33.8 % 33.1 % Concent (32.0-36.0) (32.0-36.0) Red Cell Distribution Width 18.6 % 18.8 % (11.6-17.2) (11.6-17.2) Platelet Count 221 TH/MM3 244 TH/MM3 (150-450) (150-450) Mean Platelet Volume 7.8 FL 8.0 FL (7.0-11.0) (7.0-11.0) Neutrophils (%) (Auto) 64.9 % 60.0 % (16.0-70.0) (16.0-70.0) Lymphocytes (%) (Auto) 21.8 % 27.5 % (9.0-44.0) (9.0-44.0) Monocytes (%) (Auto) 11.2 % 9.1 % (0.0-8.0) (0.0-8.0) Eosinophils (%) (Auto) 1.5 % (0.0-4.0) 2.7 % (0.0-4.0) Basophils (%) (Auto) 0.6 % (0.0-2.0) 0.7 % (0.0-2.0) Neutrophils # (Auto) 5.9 TH/MM3 5.9 TH/MM3 (1.8-7.7) (1.8-7.7) Lymphocytes # (Auto) 2.0 TH/MM3 2.7 TH/MM3 (1.0-4.8) (1.0-4.8) Monocytes # (Auto) 1.0 TH/MM3 0.9 TH/MM3 (0-0.9) (0-0.9) Eosinophils # (Auto) 0.1 TH/MM3 0.3 TH/MM3 (0-0.4) (0-0.4) Basophils # (Auto) 0.1 TH/MM3 0.1 TH/MM3 (0-0.2) (0-0.2) CBC Comment AUTO DIFF AUTO DIFF Differential Total Cells 100 Counted Neutrophils % (Manual) 70 % (16-70) Band Neutrophils % 2 % (0-6) Lymphocytes % 20 % (9-44) Monocytes % 6 % (0-8) Eosinophils % 1 % (0-4) Neutrophils # (Manual) 6.6 TH/MM3 (1.8-7.7) Nucleated Red Blood Cells 7 /100 WBC (0-0) Differential Comment FINAL DIFF AUTO DIFF MANUAL CONFIRMED Plasma Cells 1 % (0-0) Platelet Estimate NORMAL NORMAL (NORMAL) (NORMAL) Platelet Morphology Comment NORMAL NORMAL (NORMAL) (NORMAL) Polychromasia 2.2 % (0.0-1.9) 2.0 % (0.0-1.9) Prothrombin Time 16.7 SEC (9.8-11.6) Prothromb Time International 1.5 RATIO Ratio Sodium Level 133 MEQ/L 132 MEQ/L (136-145) (136-145) Potassium Level 3.5 MEQ/L 4.1 MEQ/L (3.5-5.1) (3.5-5.1) Chloride Level 98 MEQ/L 98 MEQ/L (98-107) (98-107) Carbon Dioxide Level 24.1 MEQ/L 23.6 MEQ/L (21.0-32.0) (21.0-32.0) Anion Gap 11 MEQ/L (5-15) 10 MEQ/L (5-15) Blood Urea Nitrogen 55 MG/DL (7-18) 52 MG/DL (7-18) Creatinine 1.63 MG/DL 1.62 MG/DL (0.50-1.00) (0.50-1.00) Estimat Glomerular Filtration 38 ML/MIN (>89) 38 ML/MIN (>89) Rate Random Glucose 131 MG/DL 85 MG/DL (74-106) (74-106) Calcium Level 8.8 MG/DL 8.7 MG/DL (8.5-10.1) (8.5-10.1) Ammonia 50 MCMOL/L (11-32) Random Vancomycin Level 9.4 COMMENT Phosphorus Level 3.8 MG/DL (2.5-4.9) Magnesium Level 2.6 MG/DL (1.5-2.5) B-Type Natriuretic Peptide GREATER THAN 5000 PG/ML (0-100) Test 01/21/17 05:59 Sodium Level 134 MEQ/L (136-145) Potassium Level 5.3 MEQ/L (3.5-5.1) Chloride Level 95 MEQ/L (98-107) Carbon Dioxide Level 16.7 MEQ/L (21.0-32.0) Anion Gap 22 MEQ/L (5-15) Blood Urea Nitrogen 61 MG/DL (7-18) Creatinine 2.39 MG/DL (0.50-1.00) Estimat Glomerular Filtration 24 ML/MIN (>89) Rate Random Glucose 33 MG/DL (74-106) Calcium Level 10.1 MG/DL (8.5-10.1) Phosphorus Level 6.2 MG/DL (2.5-4.9) Magnesium Level 2.6 MG/DL (1.5-2.5) Total Bilirubin 2.3 MG/DL (0.2-1.0) Direct Bilirubin 1.2 MG/DL (0.0-0.2) Indirect Bilirubin 1.1 MG/DL (0.0-0.8) Aspartate Amino Transf 129 U/L (15-37) (AST/SGOT) Alanine Aminotransferase 157 U/L (10-53) (ALT/SGPT) Alkaline Phosphatase 109 U/L (45-117) Ammonia 58 MCMOL/L (11-32) Total Protein 7.2 GM/DL (6.4-8.2) Albumin 3.2 GM/DL (3.4-5.0) Random Vancomycin Level 14.4 COMMENT Result Diagram: 01/20/17 0459 01/21/17 0559 Patient/Family Conference Present at Family Conference: Met with patient's 2 daughters and extended family at patient's bedside and in family conference room. . Family Conference Location: Bedside, Consult Room Issues Discussed: * Palliative care role, purpose, approach * Additional medical, psychosocial, and spiritual history * Patients general health, functional status, and cognitive changes in the months leading up to the current hospitalization * Patient/family understanding of the current medical problems * Patient/family understanding of prognosis * Patients goals of care as best understood from advance directives and/or conversations and/or values * Current medical treatment options and benefits/burdens of those options * Likely scenarios comparing ongoing aggressive care with a transition to comfort measures only * Questions answered to the best of my ability * Palliative care contact information provided . Assessment and Plan Disease Oriented Problem List: (1) Atrial flutter (2) Cardiomyopathy (3) Cardiac LV ejection fraction 10-20% (4) Acute kidney injury (5) History of CVA (cerebrovascular accident) (6) Elevated troponin (7) Transaminitis (8) Hypertension (9) CHF (congestive heart failure) (10) COPD (chronic obstructive pulmonary disease) (11) Severe sepsis with acute organ dysfunction Symptom Scale: (1) Poor appetite (2) Debility (3) Confusion Pertinent Non-Medical Issues Psychosocial: Patient is single and lives alone in [place]. She has a high school education. 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 Patient had 2 daughters and 1 son; her son had ESRD and is . Spiritual: Jehovah'S Witness sanya Legal: Per [place] statutes, in the absence of written advanced directives healthcare proxy decision-making falls to the children's 2 adult daughters, Triny and Lissette Ethical issues impacting care: No known ethical issues impacting care. . Important Contacts Lissette Salinas, daughter: [phone] Triny Amor, daughter: [phone] . Prognosis Ms. Salinas is a 71 yo female with a complicated medical history that includes severe cardiomyopathy with EF 20%. Status post CVA with right-sided hemiparesis and aphasia and October,. The patient has experienced an acute decline, hospitalized 5 times in the past 3 months. Patient is deconditioned with ongoing complications. Currently hospitalized with and multi-system organ dysfunction. Prognosis is poor. . Code Status: Alternative Code (ACLS medications only) Plan * ALTERNATE CODE- ACLS medications only * Decision-making: Per [place] statutes, in the absence of written advanced directives healthcare proxy decision-making falls to the patient's 2 adult daughters (Triny and Lissette). * Goals: Goals remain aggressive up to the point of cardiopulmonary resuscitation. CODE STATUS was changed to ALTERNATE CODE- ACLS medications only. * Patient's defibrillator deactivated per family request. * Palliative care contact information provided to the patient's family. * Palliative had a comprehensive discussion with the patient 2 daughters and their extended family. The hospital carrot harvester (Connor) and Palliative care WASHING MACHINE INSTALLER ( Henny Irwin) were also present. Discussed with Dr. Mayfield and nurse, [place]. * Symptom managementdebility: Patient has a complex medical history; she has experienced a recent decline as evidenced by 5 hospitalizations in the past 3 months. Patient was transferred to rehabilitation after her most recent hospitalization in 11/2016, and her functional status reportedly improved. Having ongoing setbacks and complications, now hospitalized with sepsis and multiorgan dysfunction. Prognosis is poor. Physical therapy and speech therapy are following. * Palliative care will continue to follow this patient throughout her hospitalization to establish trust, assist with symptom management and clarification of medical treatment goals. Thank you for the opportunity to participate in the care of Ms. Salinas. Attestation To help prompt me to consider important information that might be impacting today's encounter and assessment, information from prior notes written by myself or my colleagues may have been "brought forward" into today's note. My signature on this note, however, is an attestation that I personally performed the exam, history, and/or decision-making noted today, and, unless otherwise indicated, the interactions with patient, family, and staff as well as the review of records all occurred today. I also attest that the listed assessment and stated plan reflect my best clinical judgment today based on the combination of historical information, prior notes, and today's exam/ interactions. When time spent is documented, it refers only to time spent today by the signer, or if indicated, combined time spent today by collaborating physician/nurse practitioner. Pita Mccartney Jan 21, 2017 10:04
--- NOTE | 2017-01-21 10:17 | HHI.CCPN ---
Subjective Remarks/Hospital Course 71-year-old female. Date of admission 01/17/2017. Past medical history includes prior CVA with right-sided weakness, a flutter status ablation 2069, chronic kidney disease stage III sees Dr. Cunningham, coronary artery disease sees [facility] cardiology, hypertension, chronic systolic heart failure ejection fraction 20%, COPD, dyslipidemia and diabetes. In September, patient had prolonged hospitalization for CVA with right-sided hemiparesis and aphasia. She was seen in rehabilitation. And eventually discharged to retirement. One week ago, patient was made hospice per physician. Daughter Triny Amor rescinded and patient was brought to [facility] for further evaluatio CT head negative. CT chest with cardiac megaly, small pleural effusion. No definite elevated troponin, acute kidney injury creatinine 2.7, leukocytosis, lactic acidosis and 9.3. Patient is currently complaining of nausea and vomiting in his throat twice daily. No abdominal pain however. CT abdomen/ pelvis revealed no acute findings. Received 1 L normal saline ED due to hypotension is currently hemodynamically stable. Subjective: 01/18: Patient complains of being hungry this a.m., nausea and vomiting resolved. Ice chips tolerated well. Plan to advance to clear liquid diet. Patient this afternoon slightly lethargic, but easily arousable. ABG obtained rule out CO2 narcosis, Zoloft placed on hold. 01/19: Patient tolerating clear liquid diet with Ensure supplementation. Patient was noted to be tachycardic heart rate in the 120s, metoprolol when necessary being administered. Plan to resume metoprolol at lower dose 12.5 mg, if hemodynamically tolerated. Bacteremia noted gram-negative rods, patient's on Zosyn, leukocytosis resolved. 01/20: Afebrile .The patient is now tolerating a renal diet. Metoprolol PO instituted, the patient continues to be tachycardic. Lactate level slightly elevated 2.3, slightly secondary to underlying cardiac etiology with noted BNP greater than 5000. Patient remains lethargic, noted ammonia level, lactulose instituted. 01/21: Patient with poor PO intake, retaining food in mouth. Formal swallow study this a.m., diet changed to pured. Patient was noted to be more lethargic , ammonia level increasing 58, and patient was noted to be hypoglycemic glucose 38, with transaminitis, GI consulted. Creatinine was noted to be worsening with elevation of potassium. Bacteremia noted to be bacillus, but Vancomycin was discontinued, consideration of carbapenem. Consulted ID for recommendations. Objective Vital Signs Date Time Temp Pulse Resp B/P Pulse Ox O2 Delivery O2 Flow Rate FiO2 01/21/17 06:00 116 01/21/17 04:00 97.7 33 108/72 100 01/19/17 20:35 Nasal Cannula 3.00 Intake and Output 01/20/17 01/20/17 01/21/17 08:00 16:00 00:00 Intake Total 925 ml 1202 ml 326 ml Output Total 200 ml 150 ml 300 ml Balance 725 ml 1052 ml 26 ml Result Diagram: 01/20/17 0459 01/21/17 0559 Imaging Last Impressions Chest X-Ray 01/17/17 1556 Signed Impressions: Service Date/Time: Tuesday, January 17, 2017 16:07 - CONCLUSION: 1. Left basilar opacity may represent atelectasis, consolidation, and/or pleural effusion. 2. Stable enlargement of the cardiac silhouette within abnormal cardiac shape. Mello Dorman MD Head CT 01/17/17 0000 Signed Impressions: Service Date/Time: Tuesday, January 17, 2017 17:13 - CONCLUSION: Negative for an acute process. Herve Fam MD FACR Chest CT 01/17/17 0000 Signed Impressions: Service Date/Time: Tuesday, January 17, 2017 17:18 - CONCLUSION: Cardiomegaly. Small right effusion. Mild basilar atelectasis. Mello Cameron MD Abdomen/Pelvis CT 01/17/17 0000 Signed Impressions: Service Date/Time: Tuesday, January 17, 2017 17:18 - CONCLUSION: Massive cardiomegaly without pericardial effusion. Minimal failure with small right pleural effusion and trace ascites. There is no gastric distention. Herve Fam MD FACR Objective Remarks GENERAL: Elderly female lethargic, but easily arousable and oriented SKIN: Warm and dry. HEAD: Atraumatic. Normocephalic. EYES: Pupils equal and round. No scleral icterus. No injection or drainage. ENT: No nasal bleeding or discharge. Mucous membranes pink and moist. Uvula midline NECK: Trachea midline. No JVD. CARDIOVASCULAR: Regular rate and rhythm. Telemetry normal sinus rhythm RESPIRATORY: No accessory muscle use. Clear to auscultation. Breath sounds equal bilaterally. Nasal cannula GASTROINTESTINAL: Abdomen soft, non-tender, nondistended. Hepatic and splenic margins not palpable. MUSCULOSKELETAL: Extremities without clubbing, cyanosis, or edema. No obvious deformities. NEUROLOGICAL: Awake and alert. No obvious cranial nerve deficits. Motor grossly within normal limits. Five out of 5 muscle strength in the arms and legs. Normal speech. PSYCHIATRIC: Appropriate mood and affect; insight and judgment normal. 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 Depression Failure to thrive Insomnia Lethargy Hold Zoloft 50 mg by mouth daily for depression secondary to patient's current lethargy Holding Restoril 7.5 mg daily at bedtime as home medication for insomnia Continue Megace 400 mg by mouth daily for failure to thrive CT Brain 01/17 revealed no acute intracranial findings 01/20 ammonia level-50->56 today continue lactulose add Rifaximin Avoid all sedating type medications, and correction of hypoglycemia CV: Severe sepsis with multisystem organ failure Chronic systolic heart failure ejection fraction 20% History of atrial flutter status post ablation 10/[address] Velazquez Hypertension Dyslipidemia Lactic acidosis is likely cardiac etiology Status post AICD placement Elevated troponin H/O NV 2-D echo 11/08 revealed EF 20-25%. Global hypokinesis. Akinesis and scarring of the inferior posterior margin. Moderate MR/TR. Mild left atrial dilation. DARLIN 55 mmHg Status post 1 L normal saline in ED. Holding Zocor 40 mg by mouth daily for dyslipidemia. Resume when clinically indicated Holding Bumex 2 mg by mouth twice a day and spironolactone 25 mg at night due to hypotension and acute kidney injury.. 01/20 Lactate 2.3 Echocardiogram 01/18-ejection fraction 2024 percent. Possible basal posterior and apical kinesis and severe hypokinesis of all other segments Dr. 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 superintendent- signed off 01/21 Continue aspirin 81 mg by mouth daily Metoprolol 5 milligrams IV for elevated heart rate, will continue metoprolol 12.5 mg by mouth if IV dosing tolerated 01/20 BNP > 5000 Resp: History COPD Small right pleural effusion Nasal cannula to maintain saturations greater than equal to 92%, early 2 L/m Incentive spirometry while awake Duo nebs every 6 hours and albuterol every 2 hours when necessary dyspnea CT chest 01/08 revealed massive cardiomegaly, small right pleural effusion 01/18 Metabolic acidosis was noted patient was placed on bicarbonate infusion, anion gap improved, discontinued on 01/19 GI: Nausea/vomiting-resolved Transaminitis 1800 ADA diet Protonix for GI prophylaxis PeriColace for bowel regimen On Megace for anorexia. CT abdomen/pelvis revealed no signs of bowel obstruction. 01/21 liver enzymes continue to increase, with severe hypoglycemia , shock liver ? GI consulted : Cavanaugh catheter for accurate I's and O's in a critically ill patient Endo: Diabetes mellitus Sliding-scale insulin with Accu-Cheks every 2 hours to maintain euglycemia/low regimen Holding glipizide 10 mg before meals TSH and cortisol WNL Renal: Acute kidney injury in the setting of chronic kidney disease Baseline creatinine around 1.7 Avoid nephrotoxic drugs Accurate I's and O's Monitor urine output Check urine electrolytes and eosinophils No hydronephrosis on CT abdomen/pelvis Dr. 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 Follow trends Holding Eliquis 5 mg BID, INR 1.3 01/17 fibrinogen WNL ID: Severe sepsis source pneumonia aspiration? UTI? Day 5 Zosyn, vancomycin discontinued 2/ worsening creatinine 01/21 ID consulted Pertinent cultures - Blood cultures 2 01/17 -Bacillus - Urine culture 01/17 - pending Sputum culture-pending influenza A & B-negative FEN: Hyponatremia Hyperkalemia Hyper-magnesium Hyperphosphatemia 01/21 IVF D5NS @42cc/hr Received hyperkalemia protocol in ED. 2 amps NaHCO3 MSK: PT evaluate and treat 01/21 Bilateral upper arm edema-ultrasound bilateral lower extremities Access - Utilize peripheral IV. Change PIV's 01/21Central line if indicated Prophylaxis - GI -Protonix - DVT - SCD/holding pharmacological prophylaxis with eliquis is due to acute kidney injury creatinine greater than 1.5 Level 3 Discussed with daughter Ellie and NICKER at bedside.All questions answered. Palliative care consulted, regarding multisystem organ failure to define goals of care. Patient previously and hospice with DNR that was rescinded upon admission to the hospital. Physician Marlen Suarez MD Jan 21, 2017 10:17
--- NOTE | 2017-01-21 10:27 | PD.ID.CON ---
History of Present Illness Service ID Consult Requested By Dr Mayfield Reason for Consult Bacillus bacteremia Primary Care Physician Unknown Diagnoses: History of Present Illness Ms. Salinas is a 71 year old female with multiple med problems incuding CHF and AICD presented to [facility] ED on 01/17/2017 via EMS for evaluation of altered mental status. Patient became increasingly weak over a 3-4 day period. Prior to that she was ambulating on her own. She became noncommunicative and stopped walking. Pt presented afebrie, but noted to have leukocytosis of 15 lactic acidosis of 9.3 and acute kidney injury creatinine 2.7 Work up showed: negative head CT. CT chest with cardiac megaly, small pleural effusion. SHe was started on broad spectrm abx (zosyn, vanco) Over the next 3 days pt s MS improved, though she is remaining lethargic she is talking an takes PO Blood clx on admission growing Bacillus 1/4 2 D echo with EF of 20-25 %, troponine negative Urinalysis not c/w infection Past Family Social History Allergies: Coded Allergies: No Known Allergies (Unverified , 01/17/17) Per daughter, patient is not allergic to aspirin and has no allergies. Past Medical History Left basal ganglia- right-sided hemiparesis/weakness History of atrial flutter status post ablation 10/[address] Velazquez Chronic kidney disease stage III Coronary artery disease Hypertension Chronic systolic heart failure ejection fraction 20% 11/08 COPD Dyslipidemia Diabetes mellitus Insomnia Depression Chronic Eliquis use Past Surgical History Status post ablation and biventricular defibrillator Caroline AICD Cholecystectomy Hysterectomy Active Ordered Medications Medications where reviewed in EMR Antibiotics Include: CVA, HTN Family History HTN,CVA Social History No Tobacco. No ETOH. No Illicit Drugs. Physical Exam Vital Signs Vital Signs Date Time Temp Pulse Resp B/P Pulse Ox O2 Delivery O2 Flow Rate FiO2 01/21/17 06:00 116 01/21/17 04:00 114 01/21/17 04:00 97.7 114 33 108/72 100 01/21/17 02:00 114 01/21/17 00:00 111 01/21/17 00:00 97.0 111 29 96/75 100 01/20/17 22:00 110 01/20/17 20:00 103 01/20/17 20:00 96.1 103 21 102/64 100 01/20/17 18:00 90 01/20/17 16:00 97.2 109 22 101/77 100 01/20/17 16:00 109 01/20/17 14:00 103 01/20/17 12:00 116 01/20/17 12:00 97.1 116 16 106/73 100 Physical Exam CONSTITUTIONAL/GENERAL: This is an adequately nourished patient, in no apparent distress. Looks chronically ill. Speaks ful sentences TUBES/LINES/DRAINS: SKIN: No jaundice, rashes, or lesions. Skin temperature appropriate. Not diaphoretic. HEAD: Atraumatic. Normocephalic. EYES: Pupils equal and round and reactive. Extraocular motions intact. No scleral icterus. No injection or drainage. Fundi not examined. ENT: Hearing grossly normal. Nose without bleeding or purulent drainage. Throat without visible erythema, exudates, masses, or lesions. NECK: Trachea midline. Supple, nontender. No palpable thyroid enlargement or nodularity. CARDIOVASCULAR: Regular rate and rhythm without murmurs, gallops, or rubs. Prominent JVD. Peripheral pulses symmetric. Perfused extremeties, cool fingers, warm toes AICD in place L chest no skin changes over it RESPIRATORY/CHEST: Symmetric, unlabored respirations. Clear to auscultation. Breath sounds equal bilaterally. No wheezes, rales, or rhonchi. GASTROINTESTINAL: Abdomen soft, non-tender, nondistended. No hepato-splenomegaly , or palpable masses. No guarding. Bowel sounds present. GENITOURINARY: Without palpable bladder distension. Cavanaugh catheter in place with clear yellow urine MUSCULOSKELETAL: Extremities without clubbing, cyanosis, or edema. No joint tenderness or effusion noted. No calf tenderness. No mottling or clubbing. LYMPHATICS: No palpable cervical or supraclavicular adenopathy. NEUROLOGICAL: Awake and alert. Motor and sensory grossly within normal limits. Follows commands. Clear speech. Moves all extremities. PSYCHIATRIC: calm Laboratory Laboratory Tests Test 01/21/17 05:59 Sodium Level 134 Potassium Level 5.3 Chloride Level 95 Carbon Dioxide Level 16.7 Anion Gap 22 Blood Urea Nitrogen 61 Creatinine 2.39 Estimat Glomerular Filtration 24 Rate Random Glucose 33 Calcium Level 10.1 Phosphorus Level 6.2 Magnesium Level 2.6 Total Bilirubin 2.3 Direct Bilirubin 1.2 Indirect Bilirubin 1.1 Aspartate Amino Transf 129 (AST/SGOT) Alanine Aminotransferase 157 (ALT/SGPT) Alkaline Phosphatase 109 Ammonia 58 Total Protein 7.2 Albumin 3.2 Random Vancomycin Level 14.4 Date/Time Procedure Status Source Growth 01/17/17 19:30 Influenza Types A,B Antigen (VIVIANA) - Final Complete Nasal Aspirate NEGATIVE FOR FLU A AND B ANTIGEN.... 01/17/17 16:27 Aerobic Blood Culture - Preliminary Resulted Blood Peripheral NO GROWTH IN 3 DAYS 01/17/17 16:27 Anaerobic Blood Culture - Preliminary Resulted Blood Peripheral NO GROWTH IN 3 DAYS 01/17/17 16:10 Urine Culture - Final Complete Urine Catheterized Urine NO GROWTH IN 48 HOURS. 01/17/17 16:10 Aerobic Blood Culture - Final Resulted Blood Peripheral Bacillus Species Not Anthracis 01/17/17 16:10 Anaerobic Blood Culture - Preliminary Resulted Blood Peripheral NO GROWTH IN 3 DAYS Result Diagram: 01/20/17 0459 01/21/17 0559 Imaging Last Impressions Chest X-Ray 01/17/17 1556 Signed Impressions: Service Date/Time: Tuesday, January 17, 2017 16:07 - CONCLUSION: 1. Left basilar opacity may represent atelectasis, consolidation, and/or pleural effusion. 2. Stable enlargement of the cardiac silhouette within abnormal cardiac shape. Mello Dorman MD Head CT 01/17/17 0000 Signed Impressions: Service Date/Time: Tuesday, January 17, 2017 17:13 - CONCLUSION: Negative for an acute process. Herve Fam MD FACR Chest CT 01/17/17 0000 Signed Impressions: Service Date/Time: Tuesday, January 17, 2017 17:18 - CONCLUSION: Cardiomegaly. Small right effusion. Mild basilar atelectasis. Mello Cameron MD Abdomen/Pelvis CT 01/17/17 0000 Signed Impressions: Service Date/Time: Tuesday, January 17, 2017 17:18 - CONCLUSION: Massive cardiomegaly without pericardial effusion. Minimal failure with small right pleural effusion and trace ascites. There is no gastric distention. Herve Fam MD FACR Assessment and Plan Assessment and Plan Severe dilated cardiomyopathty Pt presented with signs of poor perfusion 2/2 systolic failure (PREMA, MS changes) , improved with optimyzig hemodynamcs Leukocytosis on presentation - no e/o active infx ? reactive -resolved Low grade bacillus bacteremia in endovascular device settings doubt clinical significance, Bacillus common skin contaminant, just 1 botte + Pt main issues are cardiac, l Lactic acidosis - 2/2 poor perfusion status 2/2 severe cardiomyopahty - no clinical signs of active infx d/c abx fu clinically fu clx untill final - repaet blood clx with fever Discussed Condition With Shruti Sanchez MD Jan 21, 2017 10:27
[2017-01-21] MEDS ORDERED: SODIUM BICARBONATE 8.4% INJ 50 MEQ/50 ML SYR IV PUSH ONE (10:30)
[2017-01-21] MEDS ORDERED: DEXTROSE 50% IN WATER 50 ML SYRINGE ONE (11:00)
--- NOTE | 2017-01-21 11:21 | PD.CONS ---
HPI History of Present Illness This is a 71 year old female with multiple medical problems including history of CVA (s/p angiogram and was found to have a large clot at the ICA, M1 segment , s/p emolectomy with mandaen of antegrade flow on 10/25/16, hypertension, coronary artery disease, stage III chronic kidney disease, diabetes, cardiomyopathy, and atrial flutter (s/p EPS with ablation). She presented to the ER on 01/17/17 for evaluation of altered mental status and generalized weakness. The patient was recently hospitalized in November, after having a defibrillator discharge. She was then discharged on November 29 to a rehabilitation facility, where her daughter reports that she was improving and able to ambulate on her own. She then started having increasing generalized weakness. She was on Hospice, but the family had revoked hospice prior to her arrival to the ER and is now a full code. She was admitted for severe sepsis with multisystem organ failure, chronic systolic heart failure with an EF of 20% , hypertension, dyslipidemia, elevated troponin, depression, failure to thrive, altered mental status, COPD, small right pleural effusion, nausea, vomiting, and transaminitis. GI has been consulted for elevated liver function tests and elevated ammonia level. The patient is resting in bed and is unable to provide any history and therefore the history has been obtained from the daughter, who is at the bedside. They deny any prior history of liver disease. She had her gallbladder removed years ago. The daughter denies any history of liver disease in patient or other family members and denies any history of hepatitis, cirrhosis, or alcohol use. Her daughter reports that she did have a bout of nausea and vomiting the night before this hospitalization, but has not had any further episodes. The patient denies any abdominal pain. Her daughter reports that she is passing stool, last time last night. Abdomen/Pelvis CT (01/17/17)--- -> Massive cardiomegaly without pericardial effusion. Minimal failure with small right pleural effusion and trace ascites. There is no gastric distention. PFSH Past Medical History Atrial flutter CVA Hypertension Hyperlipidemia COPD Diabetes type 2 Hypertension Chronic systolic CHF (EF 20%-25%) Cardiomyopathy CAD Chronic kidney disease Past Surgical History Cholecystectomy Hysterectomy Pacemaker/ AICD Ablation 10/15/16 Coded Allergies: No Known Allergies (Unverified , 01/17/17) Per daughter, patient is not allergic to aspirin and has no allergies. Medications Allergies Coded Allergies Type Severity Reaction Last Updated Verified No Known Allergies 01/17/17 No Active Scripts Medications Dose Route/Sig Days Date Category Dose Instructions Spironolactone 25 Mg Tab 25 Mg PO DAILY 01/17/17 Reported Aspirin Low Dose (Aspirin) 81 Mg Chew 81 Mg CHEW DAILY 01/17/17 Reported Multiple Vitamin 1 Tab 1 Tab PO DAILY 01/17/17 Reported Zoloft (Sertraline HCl) 50 Mg Tab 50 Mg PO DAILY 11/29/16 Rx Metoprolol Tartrate 25 Mg Tab 25 Mg PO Q12HR 11/29/16 Rx Megestrol Liq (Megestrol Acetate) 40 Mg/Ml Susp 400 Mg PO BID@,11/29/16 Rx Glipizide 10 Mg Tab 10 Mg PO DAILYAC 11/29/16 Rx 10mg before morning meal and 5mg before evening meal DISP: 1 month supply Bumetanide 1 Mg Tab 2 Mg PO BID@,14 11/10/16 Rx Restoril (Temazepam) 7.5 Mg Cap 7.5 Mg PO HS PRN 11/10/16 Rx Zocor (Simvastatin) 40 Mg Tab 40 Mg PO DAILY 11/10/16 Rx Eliquis (Apixaban) 5 Mg Tab 5 Mg PO BID 11/10/16 Rx Family History Patient's son (now ) with ESRD Mother with heart disease and CVA Social History No tobacco, etoh, or liver disease. Never been a heavy drinker Review of Systems Constitutional: COMPLAINS OF: Fatigue Respiratory: COMPLAINS OF: Cough, DENIES: Wheezing Cardiovascular: DENIES: Chest pain Gastrointestinal: COMPLAINS OF: Nausea, Vomiting (night before this admission) , DENIES: Abdominal pain, Black stools, Bloody stools, Constipation, Diarrhea Musculoskeletal: COMPLAINS OF: Joint pain Integumentary: DENIES: Abnormal pigmentation Hematologic/lymphatic: DENIES: Bruising Neurologic: DENIES: Headache Psychiatric: COMPLAINS OF: Confusion GI Exam Vitals I&O Vital Signs Date Time Temp Pulse Resp B/P Pulse Ox O2 Delivery O2 Flow Rate FiO2 01/21/17 06:00 116 01/21/17 04:00 114 01/21/17 04:00 97.7 114 33 108/72 100 01/21/17 02:00 114 01/21/17 00:00 111 01/21/17 00:00 97.0 111 29 96/75 100 01/20/17 22:00 110 01/20/17 20:00 103 01/20/17 20:00 96.1 103 21 102/64 100 01/20/17 18:00 90 01/20/17 16:00 97.2 109 22 101/77 100 01/20/17 16:00 109 01/20/17 14:00 103 01/20/17 12:00 116 01/20/17 12:00 97.1 116 16 106/73 100 I/O 01/20/17 01/20/17 01/20/17 01/21/17 01/21/17 01/21/17 07:00 15:00 23:00 07:00 15:00 23:00 Intake Total 925 ml 1202 ml 326 ml Output Total 200 ml 150 ml 300 ml 250 ml Balance 725 ml 1052 ml 26 ml -250 ml Intake Oral 240 ml 720 ml IV Total 685 ml 482 ml 326 ml Output Urine Total 200 ml 150 ml 300 ml 250 ml # Bowel Movements 1 Imaging Last Impressions Chest X-Ray 01/17/17 1556 Signed Impressions: Service Date/Time: Tuesday, January 17, 2017 16:07 - CONCLUSION: 1. Left basilar opacity may represent atelectasis, consolidation, and/or pleural effusion. 2. Stable enlargement of the cardiac silhouette within abnormal cardiac shape. Mello Dorman MD Head CT 01/17/17 0000 Signed Impressions: Service Date/Time: Tuesday, January 17, 2017 17:13 - CONCLUSION: Negative for an acute process. Herve Fam MD FACR Chest CT 01/17/17 0000 Signed Impressions: Service Date/Time: Tuesday, January 17, 2017 17:18 - CONCLUSION: Cardiomegaly. Small right effusion. Mild basilar atelectasis. Mello Cameron MD Abdomen/Pelvis CT 01/17/17 0000 Signed Impressions: Service Date/Time: Tuesday, January 17, 2017 17:18 - CONCLUSION: Massive cardiomegaly without pericardial effusion. Minimal failure with small right pleural effusion and trace ascites. There is no gastric distention. Herve Fam MD FACR Laboratory Test 01/21/17 05:59 Sodium Level 134 MEQ/L Potassium Level 5.3 MEQ/L Chloride Level 95 MEQ/L Carbon Dioxide Level 16.7 MEQ/L Anion Gap 22 MEQ/L Blood Urea Nitrogen 61 MG/DL Creatinine 2.39 MG/DL Estimat Glomerular Filtration 24 ML/MIN Rate Random Glucose 33 MG/DL Calcium Level 10.1 MG/DL Phosphorus Level 6.2 MG/DL Magnesium Level 2.6 MG/DL Total Bilirubin 2.3 MG/DL Direct Bilirubin 1.2 MG/DL Indirect Bilirubin 1.1 MG/DL Aspartate Amino Transf 129 U/L (AST/SGOT) Alanine Aminotransferase 157 U/L (ALT/SGPT) Alkaline Phosphatase 109 U/L Ammonia 58 MCMOL/L Total Protein 7.2 GM/DL Albumin 3.2 GM/DL Random Vancomycin Level 14.4 COMMENT Date/Time Procedure Status Source Growth 01/17/17 19:30 Influenza Types A,B Antigen (VIVIANA) - Final Complete Nasal Aspirate NEGATIVE FOR FLU A AND B ANTIGEN.... 01/17/17 16:27 Aerobic Blood Culture - Preliminary Resulted Blood Peripheral NO GROWTH IN 3 DAYS 01/17/17 16:27 Anaerobic Blood Culture - Preliminary Resulted Blood Peripheral NO GROWTH IN 3 DAYS 01/17/17 16:10 Urine Culture - Final Complete Urine Catheterized Urine NO GROWTH IN 48 HOURS. 01/17/17 16:10 Aerobic Blood Culture - Final Resulted Blood Peripheral Bacillus Species Not Anthracis 01/17/17 16:10 Anaerobic Blood Culture - Preliminary Resulted Blood Peripheral NO GROWTH IN 3 DAYS Physical Examination HEENT: Normocephalic; atraumatic; no jaundice. CHEST: Resp even/shallow, diminished breath sounds. CARDIAC: RRR ABDOMEN: Soft, distended, mild diffuse tenderness; no hepatosplenomegaly; bowel sounds are hypoactive. EXTREMITIES: No clubbing, cyanosis, or edema. SKIN: Normal; no rash; no jaundice. DOT COMPLIANCE MANAGER: Lethargic Assessment and Plan Plan ASSESSMENT: - Elevated transaminases. Per daughter, no prior history of liver disease in patient or other family members and denies any history of hepatitis, cirrhosis, or alcohol use. S/P cholecystectomy. Her daughter reports that she did have a bout of nausea and vomiting the night before this hospitalization, but has not had any further episodes. The patient denies any abdominal pain. Abdomen/Pelvis CT (01/17/17)----> Massive cardiomegaly without pericardial effusion. Minimal failure with small right pleural effusion and trace ascites. There is no gastric distention. LFTs on admission 1.2, AST 52, ALT 48, Alk Phosph 97. Worsening LFTs, T. Bili 2.3, Direct 1.2, Indirect 1.1, AST 129, ALT 157, Alk Phosph 109. Platelets are stable 244, PT 16.7, INR 1.5, Ammonia 58. Will get US and hepatitis/KERI/ASMA/AMA. This is most likely multifactorial, secondary to hepatic congestion, sepsis, possibly medication. - Abdominal distention. CT as above. + BM's. Will get KUB to see if she has ileus. - Sepsis/Bacteremia. Cx with bacillus species, not anthracis. - CAD, Chronic systolic heart failure with EF, Hx aflutter (S/P ablation), elevated troponin. Pt had run of Vtach, but was awake. CCM/Cardiology following. - PREMA. Worsening 2.39. Renal following. - HTN, Hyperlipidemia, COPD, Small right pleural effusion, DM per primary - Hx embolic CVA/left basal ganglia. s/p angiogram and was found to have a large clot at the ICA, M1 segment, s/p emolectomy with mandaen of antegrade flow on 10/25/16 PLAN: - Cardiac diet - KUB to r/o ileus - RUQ US - Hepatitis profile - KERI, ASMA, AMA - Monitor LFTs - Avoid hepatotoxic meds - Supportive care - Further recommendations to follow based on results of above - Pt seen and examined by Dr. José and myself and this note is written on his behalf Hannah Duque Jan 21, 2017 11:21
[2017-01-21] MEDS ORDERED: VANCOMYCIN 1,000 MG/NS 250 ML IV ONE ×2 (12:00)
[2017-01-21 12:48] LABS: BICARBONATE 13.5 MEQ/L (21.0-32.0); POTASSIUM 4.4 MEQ/L (3.5-5.1)
[2017-01-21] MEDS ORDERED: SODIUM POLYSTYRENE SULFONATE SUSP 15 GM/60 ML CUP PO ONE (13:00)
[2017-01-21] MEDS ORDERED: CALCIUM CHLORIDE INJ 1 GM in SODIUM CHLORIDE 0.9% INJ 100 ML IV ONE (13:00)
--- NOTE | 2017-01-21 14:28 | EKG ---
Date Performed: 01/21/2017 Time Performed: 11:16:30 PTAGE: 71 years EKG: BASELINE ARTIFACT PRESENT. ATRIAL FLUTTER WITH RAPID VENTRICULAR RESPONSE INTRAVENTRICULAR CONDUCTION DELAY INFERIOR MYOCARDIAL INFARCTION , OF INDETERMINATE AGE ABNORMAL ECG NO SIGNIFICANT CH ISAURO FROM PRIOR ELECTROCARDIOGRAM. PREVIOUS TRACING : 01/18/2017 00.37 DOCTOR: Ab Montanez Interpretating Date/Time 01/21/2017 14:27:00
[2017-01-21] MEDS ORDERED: AMIODARONE INJ 150 MG in DEXTROSE 5% IN WATER 100ML INJ 97 ML IV ONE ×2 (15:15)
[2017-01-21] MEDS: AMIODARONE INJ 450 MG in DEXTROSE 5% IN WATE(EXCEL) INJ 241 ML IV SCH ×2 (15:54)
--- NOTE | 2017-01-21 19:35 | RADRPT ---
EXAM DATE/TIME: 01/21/2017 18:25 [facility] COMPARISON: No previous studies available for comparison. INDICATIONS : Bilateral arm edema. MEDICAL HISTORY : Congestive heart failure. Hypercholesterolemia. CVA. Confusion. Weakness. CAD. Palpitations. A-flutt er. HTN. COPD. Asthma. Diabetes. Anticoagulant therapy. SURGICAL HISTORY : Pacemaker.Appendectomy. Cholecystectomy.Hysterectomy. Blood transfusions. ENCOUNTER: Initial ACUITY: 1 day PAIN SCORE: 1/10 LOCATION: Bilateral arm. FINDINGS: RIGHT UPPER EXTREMITY: There is spontaneous flow documented in the brachial, basilic, cephalic, axillary, and subclavian vei ns. Augmentation response is present. Vessels were compressible except in the subclavian region since this could not performed secondary to positioning. No filling defects are seen. The flow is phasic with respiration. Direction of flow in the jugular vein is caudal. LEFT UPPER EXTREMITY: There is spontaneous flow documented in the brachial, basilic, cephalic, axillary, and subclavian vei ns. The vessels are compressible and augmentation response is documented. No filling defects are se en. The flow is phasic with respiration. Direction of flow in the jugular vein is caudal. CONCLUSION: 1. No evidence of deep venous thrombosis. 2. The right subclavian vein could not be compressed due to positioning and patient's body habitus. Kostas Yoo MD on January 21, 2017 at 19:32 Board Certified Radiologist. This report was verified electronically.
[2017-01-21 23:42] LABS: AUTOMATED NEUTROPHIL # 7.7 TH/MM3 (1.8-7.7); BASOPHIL % 0.1 % (0.0-2.0); EOSINOPHIL % 0.1 % (0.0-4.0); HEMATOCRIT 37.5 % (35.0-46.0); LYMPH % 11.5 % (9.0-44.0); LYMPHOCYTE # 1.1 TH/MM3 (1.0-4.8); MEAN CELL VOLUME 93.9 FL (80.0-100.0); MEAN CORPUSCULAR HEMOGLOBIN 30.7 PG (27.0-34.0); MEAN CORPUSCULAR HGB CONC 32.7 % (32.0-36.0); MONO % 9.4 % (0.0-8.0); NEUT % 78.9 % (16.0-70.0); PLATELET COUNT 221 TH/MM3 (150-450); RED CELL DISTRIBUTION WIDTH 19.1 % (11.6-17.2); WHITE BLOOD COUNT 9.8 TH/MM3 (4.0-11.0)
[2017-01-22] VITALS (14 sets, daily range): BP systolic 99–119; BP diastolic 65–77; PULSE 100–117; RESP 16–32; TEMP 97.7–98.9; O2SAT 93–100
[2017-01-22 00:03] LABS: HEMO FLAGS AUTO DIFF
[2017-01-22] MEDS: AMIODARONE INJ 450 MG in DEXTROSE 5% IN WATE(EXCEL) INJ 241 ML IV SCH ×4 (00:30→17:12)
[2017-01-22 00:57] LABS: BANDS 10 % (0-6); CORRECTED NUCLEATED RBC 3 /100 WBC (0-0); NEUTROPHIL # MANUAL DIFF 7.7 TH/MM3 (1.8-7.7); POLYS (SEG NEUTROPHILS) 69 % (16-70); WBC DIFF SAMPLE 100
[2017-01-22 00:59] LABS: TOXIC VACUOLATION PRESENT (NONE SEEN)
[2017-01-22 01:00] LABS: BURR CELLS 1+ (NORMAL); OVALOCYTES 1+ (NORMAL); PLATELET ESTIMATE SMEAR NORMAL (NORMAL); PLATELET MORPHOLOGY NORMAL (NORMAL); SCAN/DIFF FINAL DIFF MANUAL
[2017-01-22] MEDS ORDERED: SODIUM BICARBONATE 8.4% INJ 150 MEQ in DEXTROSE 5% IN WATE 1000ML INJ 1,000 ML IV SCH ×2 (01:00)
[2017-01-22] MEDS: CHLORHEXIDINE GLUCONATE 2 % 1 PACK (2 CLOTHS) TOP SCH (04:00)
[2017-01-22 05:16] LABS: ALT (GPT) 206 U/L (10-53); ANION GAP 17 MEQ/L (5-15); AST (GOT) 156 U/L (15-37); BICARBONATE 24.2 MEQ/L (21.0-32.0); BLOOD UREA NITROGEN 70 MG/DL (7-18); CHLORIDE 92 MEQ/L (98-107); GLOMERULAR FILTRATION RATE 21 ML/MIN (>89); MAGNESIUM 2.4 MG/DL (1.5-2.5); POTASSIUM 3.8 MEQ/L (3.5-5.1); SODIUM (NA) 133 MEQ/L (136-145)
[2017-01-22 05:19] LABS: ALKALINE PHOSPHATASE 100 U/L (45-117); TOTAL BILIRUBIN ADULT 1.1 MG/DL (0.2-1.0)
[2017-01-22 05:44] LABS: HEMATOCRIT 37.9 % (35.0-46.0); MEAN CELL VOLUME 93.6 FL (80.0-100.0); MEAN CORPUSCULAR HEMOGLOBIN 29.6 PG (27.0-34.0); MEAN CORPUSCULAR HGB CONC 31.6 % (32.0-36.0); PLATELET COUNT 212 TH/MM3 (150-450); RED BLOOD COUNT 4.05 MIL/MM3 (4.00-5.30); RED CELL DISTRIBUTION WIDTH 19.2 % (11.6-17.2); WHITE BLOOD COUNT 11.3 TH/MM3 (4.0-11.0)
[2017-01-22 05:49] LABS: REVIEW FLAG FINAL
[2017-01-22] MEDS: INSULIN NovoLIN REGULAR SUPPLEMENTAL SCALE SQ SCH ×5 (05:53→20:00)
[2017-01-22] MEDS: LACTULOSE SYRUP 20 GM/30 ML CUP PO SCH (08:06)
[2017-01-22] MEDS: MEGESTROL ACETATE SUSP 400 MG/10 ML CUP PO SCH ×2 (08:06→17:12)
[2017-01-22] MEDS: DOCUSATE SODIUM 50 MG/SENNA 8.6 MG TAB PO SCH ×2 (08:06→21:00)
[2017-01-22] MEDS: ASPIRIN 81 MG CHEW TAB CHEW SCH (08:06)
[2017-01-22] MEDS: MULTIVITAMIN TAB PO SCH (08:06)
[2017-01-22] MEDS: PANTOPRAZOLE SODIUM 40 MG VIAL IV SCH (08:06)
[2017-01-22] MEDS: SODIUM CHLORIDE 0.9% FLUSH 10 ML FLUSH IV FLUSH SCH ×2 (08:07→21:00)
[2017-01-22] MEDS: ARTIFICIAL TEARS OPTH SOLN 15 ML BTL EACH EYE SCH ×3 (08:09→17:12)
[2017-01-22] MEDS ORDERED: BUMETANIDE INJ 1 MG/4 ML VIAL IV PUSH ONE (08:30)
--- NOTE | 2017-01-22 09:24 | HHI.CCPN ---
Subjective Remarks/Hospital Course 71-year-old female. Date of admission 01/17/2017. Past medical history includes prior CVA with right-sided weakness, a flutter status ablation 2069, chronic kidney disease stage III sees Dr. Cunningham, coronary artery disease sees [facility] cardiology, hypertension, chronic systolic heart failure ejection fraction 20%, COPD, dyslipidemia and diabetes. In September, patient had prolonged hospitalization for CVA with right-sided hemiparesis and aphasia. She was seen in rehabilitation. And eventually discharged to skilled nursing. One week ago, patient was made hospice per physician. Daughter Triny Amor rescinded and patient was brought to [facility] for further evaluatio CT head negative. CT chest with cardiac megaly, small pleural effusion. No definite elevated troponin, acute kidney injury creatinine 2.7, leukocytosis, lactic acidosis and 9.3. Patient is currently complaining of nausea and vomiting in his throat twice daily. No abdominal pain however. CT abdomen/ pelvis revealed no acute findings. Received 1 L normal saline ED due to hypotension is currently hemodynamically stable. Subjective: 01/18: Patient complains of being hungry this a.m., nausea and vomiting resolved. Ice chips tolerated well. Plan to advance to clear liquid diet. Patient this afternoon slightly lethargic, but easily arousable. ABG obtained rule out CO2 narcosis, Zoloft placed on hold. 01/19: Patient tolerating clear liquid diet with Ensure supplementation. Patient was noted to be tachycardic heart rate in the 120s, metoprolol when necessary being administered. Plan to resume metoprolol at lower dose 12.5 mg, if hemodynamically tolerated. Bacteremia noted gram-negative rods, patient's on Zosyn, leukocytosis resolved. 01/20: Afebrile .The patient is now tolerating a renal diet. Metoprolol PO instituted, the patient continues to be tachycardic. Lactate level slightly elevated 2.3, slightly secondary to underlying cardiac etiology with noted BNP greater than 5000. Patient remains lethargic, noted ammonia level, lactulose instituted. 01/21: Patient with poor PO intake, retaining food in mouth. Formal swallow study this a.m., diet changed to pured. Patient was noted to be more lethargic , ammonia level increasing 58, and patient was noted to be hypoglycemic glucose 38, with transaminitis, GI consulted. Creatinine was noted to be worsening with elevation of potassium. Bacteremia noted to be bacillus, but Vancomycin was discontinued, consideration of carbapenem. Consulted ID for recommendations. 01/22: Yesterday the patient had an episode of ventricular tachycardia with a rate of 160, potassium level was noted to be 5.3. Emergently received sodium bicarbonate, D50 and insulin, Kayexalate, the patient has an indwelling AICD set to defibrillate at rate 171. A sodium bicarbonate infusion was instituted. No defibrillation was required. The patient then converted into atrial fibrillation with RVR, low 100s. Amiodarone was bolused and amiodarone continues to infuse. Heart rate during the night range from 90s to 110. The patient previously had been in hospice care with a DNR, which have been rescinded for this hospitalization. Palliative care was consulted yesterday and extensive discussion with the family resulted in decision of an alternate CODE STATUS with ACLS medications only. AICD was interrogated and turned off. GI was consulted regarding patient's transaminitis,liver US and labs are pending. The patient continues to be oliguric with 650 cc urine output in 24 hours. Nephrology has been consulted for recommendations. Objective Vital Signs Date Time Temp Pulse Resp B/P Pulse Ox O2 Delivery O2 Flow Rate FiO2 01/22/17 06:00 117 01/22/17 04:00 98.3 32 110/75 100 106/68 01/21/17 20:30 3.00 01/19/17 20:35 Nasal Cannula Intake and Output 01/21/17 01/21/17 01/22/17 08:00 16:00 00:00 Intake Total 775 ml 801 ml Output Total 250 ml 125 ml 125 ml Balance -250 ml 650 ml 676 ml Result Diagram: 01/22/17 0411 01/22/17 0411 Imaging Last Impressions Chest X-Ray 01/17/17 1556 Signed Impressions: Service Date/Time: Tuesday, January 17, 2017 16:07 - CONCLUSION: 1. Left basilar opacity may represent atelectasis, consolidation, and/or pleural effusion. 2. Stable enlargement of the cardiac silhouette within abnormal cardiac shape. Mello Dorman MD Head CT 01/17/17 0000 Signed Impressions: Service Date/Time: Tuesday, January 17, 2017 17:13 - CONCLUSION: Negative for an acute process. Herve Fam MD FACR Chest CT 01/17/17 0000 Signed Impressions: Service Date/Time: Tuesday, January 17, 2017 17:18 - CONCLUSION: Cardiomegaly. Small right effusion. Mild basilar atelectasis. Mello Cameron MD Abdomen/Pelvis CT 01/17/17 0000 Signed Impressions: Service Date/Time: Tuesday, January 17, 2017 17:18 - CONCLUSION: Massive cardiomegaly without pericardial effusion. Minimal failure with small right pleural effusion and trace ascites. There is no gastric distention. Herve Fam MD FACR Objective Remarks Infusions Amiodarone 0.5 mg/hour Sodium bicarbonate 50 cc/hour GENERAL: Elderly female lethargic, but easily arousable and oriented SKIN: Warm and dry. HEAD: Atraumatic. Normocephalic. EYES: Pupils equal and round. No scleral icterus. No injection or drainage. ENT: No nasal bleeding or discharge. Mucous membranes pink and moist. Uvula midline NECK: Trachea midline. No JVD. CARDIOVASCULAR: Regular rate and rhythm. Telemetry normal sinus rhythm RESPIRATORY: No accessory muscle use. Clear to auscultation. Breath sounds equal bilaterally. Nasal cannula GASTROINTESTINAL: Abdomen soft, non-tender, nondistended. Hepatic and splenic margins not palpable. MUSCULOSKELETAL: Extremities without clubbing, cyanosis, or edema. No obvious deformities. NEUROLOGICAL: Awake and alert. No obvious cranial nerve deficits. Motor grossly within normal limits. 3/5 muscle strength in the arms and legs. Normal speech. PSYCHIATRIC: Appropriate mood and affect; insight and judgment normal. 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 Depression Failure to thrive Insomnia Lethargy Hold Zoloft 50 mg by mouth daily for depression secondary to patient's current lethargy Holding Restoril 7.5 mg daily at bedtime as home medication for insomnia Continue Megace 400 mg by mouth daily for failure to thrive CT Brain 01/17 revealed no acute intracranial findings Will consider Rifaximin Avoid all sedating type medications, and correction of hypoglycemia Ammonia level 58->37 today continue lactulose CV: Severe sepsis with multisystem organ failure Chronic systolic heart failure ejection fraction 20% History of atrial flutter status post ablation 10/[address] Velazquez Hypertension Dyslipidemia Lactic acidosis is likely cardiac etiology Status post AICD placement-deactivated 01/21 Elevated troponin H/O NM 2-D echo 11/08 revealed EF 20-25%. Global hypokinesis. Akinesis and scarring of the inferior posterior margin. Moderate MR/TR. Mild left atrial dilation. DARLIN 55 mmHg Status post 1 L normal saline in ED. Holding Zocor 40 mg by mouth daily for dyslipidemia. Resume when clinically indicated Holding Bumex 2 mg by mouth twice a day and spironolactone 25 mg at night due to hypotension and acute kidney injury.. 01/20 Lactate 2.3 Echocardiogram 01/18-ejection fraction 2024%. Possible basal posterior and apical kinesis and severe hypokinesis of all other segments Dr. Olson, ore miner- signed off 01/21 Continue aspirin 81 mg by mouth daily 01/20 BNP > 5000 01/21 episode of V. tach was self resolution. A. fib RVR amiodarone infusion initiated, will restart Metoprolol when clinically improvement in BP Resp: History COPD Small right pleural effusion Nasal cannula to maintain saturations greater than equal to 92%, early 2 L/m Incentive spirometry while awake Duo nebs every 6 hours and albuterol every 2 hours when necessary dyspnea CT chest 01/08 revealed massive cardiomegaly, small right pleural effusion 01/18 Metabolic acidosis was noted patient was placed on bicarbonate infusion, anion gap improved, discontinued on 01/19, restarted 01/21 GI: Nausea/vomiting-resolved Transaminitis 1800 ADA diet Protonix for GI prophylaxis PeriColace for bowel regimen On Megace for anorexia. CT abdomen/pelvis revealed no signs of bowel obstruction. 01/21 liver enzymes continue to increase, with severe hypoglycemia , shock liver ? GI consulted 01/22 F/U liver US, Hepatitis panel : Cavanaugh catheter for accurate I's and O's in a critically ill patient Endo: Diabetes mellitus Hypoglycemia Sliding-scale insulin with Accu-Cheks every 4 hours to maintain euglycemia/low regimen Holding glipizide 10 mg before meals TSH and cortisol WNL Renal: Acute kidney injury in the setting of chronic kidney disease Baseline creatinine around 1.7 Avoid nephrotoxic drugs Accurate I's and O's Monitor urine output Check urine electrolytes and eosinophils No hydronephrosis on CT abdomen/pelvis Dr. Cunningham is her bureau chief 01/20 Restarted PO Bumex 1 mg twice a day (home medication), discontinued with creatinine elevation 1.62->2.39 (vancomycin discontinued) 01/22 Nephrology consulted, 01/22 given Bumex 1 mg x1 . Noted 5 kg wt gain since admission. Creatinine 2.81- > 2.69 today Heme: Leukocytosis-resolved Elevated PT/INR and PTT Monitor CBC daily. Follow trends Holding Eliquis 5 mg BID, INR 1.3 01/17 fibrinogen WNL ID: Severe sepsis source pneumonia aspiration? UTI? Day 5 Zosyn, vancomycin discontinued 08/26 worsening creatinine 01/21 ID following- Dr. Johnson Pertinent cultures - Blood cultures 2 01/17 -Bacillus - Urine culture 01/17 - pending Sputum culture-pending influenza A & B-negative FEN: Hyponatremia Hyperkalemia-resolved Hyper-magnesium Hyperphosphatemia 01/21 IVF D5NS @42cc/hr Received hyperkalemia protocol in ED. 2 amps NaHCO3 Change NaHCO3 infusion to NS MSK: PT evaluate and treat 01/21 Bilateral upper arm edema-ultrasound bilateral lower extremities Access - Utilize peripheral IV. Change PIV's 01/21 Central line if indicated Prophylaxis - GI -Protonix - DVT - SCD/holding pharmacological prophylaxis with eliquis is due to acute kidney injury creatinine greater than 1.5 Level 3 Discussed with daughter Ellie and TEACHER DRAMATICS at bedside.All questions answered. Palliative care consulted, regarding multisystem organ failure to define goals of care. Patient previously and hospice with DNR that was rescinded upon admission to the hospital. 01/22 Yesterday after V. tach episode, family discussion with palliative care medicine. It was decided alternate CODE STATUS be initiated, ACLS drugs only. AICD was interrogated and deactivated. Possible plan for transfer back to hospice, will consult nephrology for any additional recommendations and further discussion with palliative medicine regarding disposition. Physician Marlen Suarez MD Jan 22, 2017 09:24
[2017-01-22] MEDS: SODIUM BICARBONATE 8.4% INJ 150 MEQ in SODIUM CHLOR 0.9% 1000 ML INJ 1,000 ML IV SCH (12:03)
--- NOTE | 2017-01-22 13:34 | HHI.GIFU ---
Subjective Remarks Pt lethargic and unable to provide any information Pts nusre reports that she had a large loose BM this morning. Pt has had about 475mL of UOP so far today (Christiana Villanueva) Objective Vitals I&O Vital Signs Date Time Temp Pulse Resp B/P Pulse Ox O2 Delivery O2 Flow Rate FiO2 01/22/17 12:00 108 01/22/17 10:26 93 Nasal Cannula 3.00 01/22/17 10:00 108 01/22/17 08:00 108 01/22/17 06:00 117 01/22/17 04:00 98.3 109 32 110/75 100 106/68 01/22/17 04:00 111 01/22/17 02:00 103 01/22/17 00:00 98.1 108 25 99/72 100 113/71 01/22/17 00:00 110 01/21/17 22:00 107 01/21/17 20:30 99 3.00 01/21/17 20:00 106 01/21/17 20:00 98.0 106 28 112/73 100 107/68 01/21/17 19:00 108 01/21/17 18:00 102 01/21/17 17:00 104 01/21/17 17:00 104 29 91/69 100 109/71 01/21/17 16:00 98.5 110 26 106/76 100 114/76 01/21/17 16:00 110 01/21/17 15:01 110 40 104/69 100 111/72 01/21/17 15:00 109 47 112/72 100 01/21/17 14:00 109 30 94/66 100 97/55 01/21/17 14:00 114 01/21/17 13:46 111 28 110/73 100 110/61 I/O 01/21/17 01/21/17 01/21/17 01/22/17 01/22/17 01/22/17 07:00 15:00 23:00 07:00 15:00 23:00 Intake Total 775 ml 801 ml 439 ml Output Total 250 ml 125 ml 125 ml 225 ml Balance -250 ml 650 ml 676 ml 214 ml Intake Oral 420 ml IV Total 355 ml 801 ml 439 ml Output Urine Total 250 ml 125 ml 125 ml 225 ml # Bowel Movements 3 1 Laboratory Laboratory Tests Test 01/21/17 01/22/17 01/22/17 21:23 04:11 08:39 White Blood Count 9.8 11.3 Red Blood Count 4.00 4.05 Hemoglobin 12.3 12.0 Hematocrit 37.5 37.9 Mean Corpuscular Volume 93.9 93.6 Mean Corpuscular Hemoglobin 30.7 29.6 Mean Corpuscular Hemoglobin 32.7 31.6 Concent Red Cell Distribution Width 19.1 19.2 Platelet Count 221 212 Mean Platelet Volume 8.6 8.2 Neutrophils (%) (Auto) 78.9 Lymphocytes (%) (Auto) 11.5 Monocytes (%) (Auto) 9.4 Eosinophils (%) (Auto) 0.1 Basophils (%) (Auto) 0.1 Neutrophils # (Auto) 7.7 Lymphocytes # (Auto) 1.1 Monocytes # (Auto) 0.9 Eosinophils # (Auto) 0.0 Basophils # (Auto) 0.0 CBC Comment AUTO DIFF Differential Total Cells 100 Counted Neutrophils % (Manual) 69 Band Neutrophils % 10 Lymphocytes % 13 Monocytes % 8 Neutrophils # (Manual) 7.7 Nucleated Red Blood Cells 3 Differential Comment FINAL DIFF MANUAL Toxic Vacuolation PRESENT Platelet Estimate NORMAL Platelet Morphology Comment NORMAL Ovalocytes 1+ [place] Cells 1+ Sodium Level 133 Potassium Level 3.8 Chloride Level 92 Carbon Dioxide Level 24.2 Anion Gap 17 Blood Urea Nitrogen 70 Creatinine 2.69 Estimat Glomerular Filtration 21 Rate Random Glucose 224 Calcium Level 9.2 Phosphorus Level 5.1 Magnesium Level 2.4 Total Bilirubin 1.1 Aspartate Amino Transf 156 (AST/SGOT) Alanine Aminotransferase 206 (ALT/SGPT) Alkaline Phosphatase 100 Total Protein 6.5 Albumin 2.8 Ammonia 37 Date/Time Procedure Status Source Growth 01/17/17 19:30 Influenza Types A,B Antigen (VIIVANA) - Final Complete Nasal Aspirate NEGATIVE FOR FLU A AND B ANTIGEN.... 01/17/17 16:27 Aerobic Blood Culture - Final Complete Blood Peripheral NO GROWTH IN 5 DAYS 01/17/17 16:27 Anaerobic Blood Culture - Final Complete Blood Peripheral NO GROWTH IN 5 DAYS 01/17/17 16:10 Urine Culture - Final Complete Urine Catheterized Urine NO GROWTH IN 48 HOURS. Imaging Last Impressions Upper Extremity Ultrasound 01/21/17 0000 Signed Impressions: Service Date/Time: Saturday, January 21, 2017 18:25 - CONCLUSION: 1. No evidence of deep venous thrombosis. 2. The right subclavian vein could not be compressed due to positioning and patient's body habitus. Kostas Yoo MD Chest X-Ray 01/17/17 1556 Signed Impressions: Service Date/Time: Tuesday, January 17, 2017 16:07 - CONCLUSION: 1. Left basilar opacity may represent atelectasis, consolidation, and/or pleural effusion. 2. Stable enlargement of the cardiac silhouette within abnormal cardiac shape. Mello Dorman MD Head CT 01/17/17 0000 Signed Impressions: Service Date/Time: Tuesday, January 17, 2017 17:13 - CONCLUSION: Negative for an acute process. Herve Fam MD FACR Chest CT 01/17/17 0000 Signed Impressions: Service Date/Time: Tuesday, January 17, 2017 17:18 - CONCLUSION: Cardiomegaly. Small right effusion. Mild basilar atelectasis. Mello Cameron MD Abdomen/Pelvis CT 01/17/17 0000 Signed Impressions: Service Date/Time: Tuesday, January 17, 2017 17:18 - CONCLUSION: Massive cardiomegaly without pericardial effusion. Minimal failure with small right pleural effusion and trace ascites. There is no gastric distention. Herve Fam MD FACR Physical Exam GENERAL: Lethargic NECK: Neck is supple, no JVD, no lymphadenopathy. CHEST: CTA CARDIAC: Irregular ABDOMEN: +BS, soft, nondistended, nontender; no hepatosplenomegaly EXTREMITIES: No clubbing, cyanosis, or edema. 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 Per daughter, no prior history of liver disease in patient or other family members and denies any history of hepatitis, cirrhosis, or alcohol use. S/P cholecystectomy. Her daughter reports that she did have a bout of nausea and vomiting the night before this hospitalization, but has not had any further episodes. The patient denies any abdominal pain. Abdomen/Pelvis CT (01/17/17)----> Massive cardiomegaly without pericardial effusion. Minimal failure with small right pleural effusion and trace ascites. There is no gastric distention. LFTs on admission 1.2, AST 52, ALT 48, Alk Phosph 97. Worsened on 01/21 to T. Bili 2.3, Direct 1.2, Indirect 1.1, AST 129, ALT 157, Alk Phosph 109. Platelets are stable 244, PT 16.7, INR 1.5, Ammonia 58. This is most likely multifactorial, secondary to hepatic congestion, sepsis, possibly medication. - Abdominal distention. CT as above. + BM's. - Sepsis/Bacteremia. Cx with bacillus species, not anthracis. ID following. - CAD, Chronic systolic heart failure with EF, Hx aflutter (S/P ablation), elevated troponin. Pt had run of Vtach on 01/21. CCM/Cardiology following. A sodium bicarbonate infusion was given. No defibrillation required. The patient then converted into atrial fibrillation with RVR. She was started on Amiodarone. HR stable. AICD was interrogated and turned off. - PREMA. Worsening 2.69. Renal following. The patient continues to be oliguric with 650 cc urine output in 24 hours. - HTN, Hyperlipidemia, COPD, Small right pleural effusion, DM per primary - Hx embolic CVA/left basal ganglia. s/p angiogram and was found to have a large clot at the ICA, M1 segment, s/p embolectomy with synagogue of antegrade flow on 10/25/16 PLAN: - Cardiac diet - RUQ US - Hepatitis profile - KERI, ASMA, AMA - Monitor LFTs - Palliative care was consulted yesterday and extensive discussion with the family resulted in decision of an alternate CODE STATUS with ACLS medications only. - Avoid hepatotoxic meds - Supportive care - Further recommendations to follow based on results of above - Pt was seen and examined by myself and Dr. Day and this note was written on his behalf (Christiana Villanueva) Physician Comments Patient seen and examined Agree with above Continue with current supportive care Monitor labs LFT elevation is multifactorial probably relating to cardiac and infection and sepsis Continue with close monitoring Further recommendations depend on the hospital course (Alfie Day MD ) Christiana Villanueva Jan 22, 2017 13:34 Alfie Day MD Jan 22, 2017 17:30
--- NOTE | 2017-01-22 14:02 | MB ---
cc: WADE SHAFER MD DATE OF CONSULTATION: 01/22/2017 DICTATING PHYSICIAN: Wade Shafer MD. REASON FOR CONSULTATION: Acute kidney injury on chronic kidney disease stage III. HISTORY OF PRESENT ILLNESS This is a 71-year-old female with an apparent history of CKD stage III. She follows up as an outpatient with Dr. Misael Shafer. Apparently her baseline creatinine is near 1.7. The patient was admitted on January 17. She had previously been on hospice care and had complained of some chest pains and lower extremity edema. The family had revoked Hospice care brought her here for further evaluation. The patient was admitted to the ICU and evaluated for possible pneumonia. She was treated with Zosyn as well as vancomycin for this. Additionally the patient was found to be acidotic. Her serum bicarbonate level was as low as 13. The patient was started on IV fluids with bicarbonate. Her blood pressure has been running borderline low and her systolic blood pressures been between 90s and 100s here. This acidosis was attributed to possible CHF, with a 20% EF. On evaluation here the patient was found to be lethargic and assessed with failure to thrive. She does have a previous history of a CVA as well as right-sided weakness. She was found to have elevated ammonia levels as well as LFTs and GI has been evaluating this as well. Regarding her renal function the patient's creatinine was 2.7 at the time of admission. This dropped steadily down to a level of 1.6 on January 20. However, on January 21, the patient had episode of V-tach and the heart rates going up to 160s. She was medically treated for this. However after this episode, her creatinine increased from 1.6 to 2.39 and then to 2.8. The creatinine slightly improved to a level of 2.69 today and the patient has been supportively treated with IV fluids. At this point the patient is resting in bed comfortably. She is no longer in V-tach however, she is very lethargic and does not communicate well. The family was there at bedside. The rescinded her Hospice care and went to modified ACLS with no shocks, and medications only. Given the increase in her creatinine and decreased urine output, nephrology was consulted for further evaluation. REVIEW OF SYSTEMS Patient is lethargic and not communicating the review of systems at this time, review of systems is unobtainable. PAST MEDICAL HISTORY: 1. 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 2. History of atrial flutter status post ablation in September of this year. 3. CKD stage III followed up with Dr. Misael Shafer. 4. Coronary artery disease. 5. Hypertension. 6. Congestive heart failure with 20% ejection fraction in October of this year. 7. Chronic obstructive pulmonary disease. 8. Dyslipidemia 9. Diabetes 10. Insomnia 11. Depression 12. Eliquis use. PAST SURGICAL HISTORY: 1. Includes biventricular defibrillator with Dr. Velazquez. 2. Inflation AICD 3. Cholecystectomy 4. Hysterectomy MEDICATIONS medications at home prior to admission include 1. Eliquis 2. Zoloft 3. Megace 4. Restoril 5. Metoprolol 6. Zocor. 7. Bumex 2 mg b.i.d. 8. Spironolactone 25 mg q.h.s. 9. Multivitamin 1 tablet daily. 10. Aspirin 81 mg daily. 11. Glipizide 10 mg before meals. ALLERGIES NO KNOWN DRUG ALLERGIES. FAMILY HISTORY: Family history of CVA in the mother hypertension in the family. SOCIAL HISTORY: No alcohol, tobacco or drug use. PHYSICAL EXAMINATION VITAL SIGNS: At time of evaluation temperature 98.3, pulse 117, respiratory rate 32, blood pressure 110/75, 93% oxygen saturation on 3 liters nasal cannula. IN GENERAL: Lethargic does awake and is arousable however, does not communicate. HEAD, EYES, EARS, NOSE, AND THROAT/neck: Soft supple. CARDIOVASCULAR SYSTEM: Regular rate and rhythm. PULMONARY: Lungs clear auscultation. Decreased breath sounds at bases. ABDOMEN: The abdomen is soft, nontender, nondistended. EXTREMITIES: No edema. LABORATORY FINDINGS Sodium 133, potassium 3.8, chloride 92, bicarb 24.2, BUN 70, creatinine 2.69, glucose 224, calcium 9.2, phosphorus 5.1, AST 156, ALT 206, alk phos 107. Albumin 0.8. ASSESSMENT/PLAN 1. Acute kidney injury, CKD stage III. The patient follows up with Dr. Misael Shafer as an outpatient. Her baseline creatinine has been near 1.6-1.8. The patient had a creatinine of 1.8 prior to an episode of V-tach 2 days ago after that her creatinine increased to a level of 2.8 and then decreased slightly to 2.6 today. It is possible that the patient developed some ATN secondary to hypoperfusion during episodes of V-tach. In addition, the patient was initially treated with vancomycin and Zosyn for pneumonia at time of her presentation here. There may be some ATN secondary to this, vancomycin has been held at this point. The heart rate has improved. She has had 470 cc of urine now over the last 24 hours. She was given one dose of Bumex earlier today and we will continue monitor response to this. Continue with IV fluids as ordered and the patient continues IV fluids with bicarbonate at 50 cc/hour. The patient had been on Bumex at home with 1 mg p.o. b.i.d. Bumex dosing. Continue to hold diuretics at this point and continue monitor for response. Hopefully her creatinine will continue to improved status post episode of this ventricular tachycardia. At this point there is no indications for dialysis and the patient will be a poor candidate for dialysis overall given her overall medical conditions. This was discussed with the family. 2. Metabolic acidosis. The patient had a bicarbonate as low as 13 earlier in this admission, she may have lactic acidosis secondary to her congestive heart failure with a 20% ejection fraction. To continue with fluids with bicarbonate at this point she is continuing to improve with a bicarbonate level of 24 this point. 3. Ventricular tachycardia, the patient has had episode of ventricular tachycardia on January 21. This was medically managed and this is improved at this point. Her potassium was slightly elevated at 5.3 at that time. Continue to monitor electrolytes and closely monitor. At this point her potassium has improved to a level of 3.8 today. We will continue monitor her closely. 4. Failure to thrive. The patient was admitted here with chest pains and failure to thrive. She has a history of CVA as well as advanced congestive heart failure with a 20% ejection fraction. To continue to follow with the primary team. The patient did have elevated ammonia levels and gastrointestinal is following this as well. 5. Congestive heart failure, the patient has a 20% ejection fraction, is to continue medical management. Continue to monitor. Wade Shafer MD DVP/ryan /12:53 PM /1:44 PM ARPAN
--- NOTE | 2017-01-22 16:49 | RADRPT ---
EXAM DATE/TIME: 01/22/2017 14:51 [facility] COMPARISON: CT ABDOMEN & PELVIS W/O CONTRAST, January 17, 2017, 17:18. US ABDOMEN - LIVER, November 03, 2016, 18:38. INDICATIONS : Increased lab values. MEDICAL HISTORY : Congestive heart failure. Hypercholesterolemia. Chronic obstructive pulmonary disease. Coronary arter y disease. Palpitations. A-flutter. Hypertension. Asthma. Diabetes. Anticoagulant therapy. Cerebrovas cular accident. Confusion. Weakness. Blood transfusion. SURGICAL HISTORY : Pacemaker. Appendectomy. Cholecystectomy. Hysterectomy. ENCOUNTER: Initial ACUITY: 1 day PAIN SCORE: Nonresponsive. LOCATION: Abdomen. MEASUREMENTS: LIVER: 17.5 cm length COMMON DUCT: 10 mm RIGHT KIDNEY: 10.7 x 5.0 x 4.4 cm SPLEEN: 7.2 cm length FINDINGS: LIVER: Normal echotexture without focal lesion or ductal dilatation. COMMON DUCT: Common bile duct is dilated measuring 1 cm. This may reflect a reservoir phenomenon following cholecy stectomy. GALLBLADDER: The patient is status post cholecystectomy. PANCREAS: The visualized portions are within normal limits. RIGHT KIDNEY: No hydronephrosis, stone or mass. SPLEEN: There are several echogenic foci within the spleen likely representing granulomas or hemangiomas. OTHER: Bilateral pleural effusions are present. CONCLUSION: 1. Dilatation the common bile duct likely reflecting a reservoir following cholecystectomy. This coul d be correlated clinically and with the patient's laboratory biliary status. 2. Bilateral pleural effusions. Mello Oglesby MD on January 22, 2017 at 16:42 Board Certified Radiologist. This report was verified electronically.
[2017-01-23] VITALS (15 sets, daily range): BP systolic 86–126; BP diastolic 59–89; PULSE 101–124; RESP 16–31; TEMP 97.2–98; O2SAT 100
[2017-01-23] MEDS: CHLORHEXIDINE GLUCONATE 2 % 1 PACK (2 CLOTHS) TOP SCH (00:41)
[2017-01-23] MEDS: INSULIN NovoLIN REGULAR SUPPLEMENTAL SCALE SQ SCH ×4 (05:05→19:37)
[2017-01-23 05:55] LABS: AUTOMATED NEUTROPHIL # 6.1 TH/MM3 (1.8-7.7); BASOPHIL % 0.3 % (0.0-2.0); EOSINOPHIL # 0.1 TH/MM3 (0-0.4); HEMATOCRIT 37.7 % (35.0-46.0); LYMPH % 15.5 % (9.0-44.0); LYMPHOCYTE # 1.3 TH/MM3 (1.0-4.8); MEAN CELL VOLUME 93.2 FL (80.0-100.0); MEAN CORPUSCULAR HEMOGLOBIN 31.1 PG (27.0-34.0); MEAN CORPUSCULAR HGB CONC 33.3 % (32.0-36.0); MONO % 9.2 % (0.0-8.0); PLATELET COUNT 162 TH/MM3 (150-450); RED BLOOD COUNT 4.04 MIL/MM3 (4.00-5.30); RED CELL DISTRIBUTION WIDTH 19.6 % (11.6-17.2); WHITE BLOOD COUNT 8.3 TH/MM3 (4.0-11.0)
[2017-01-23 05:57] LABS: HEMO FLAGS AUTO DIFF
[2017-01-23 06:25] LABS: ALKALINE PHOSPHATASE 104 U/L (45-117); ALT (GPT) 237 U/L (10-53); ANION GAP 9 MEQ/L (5-15); AST (GOT) 150 U/L (15-37); BLOOD UREA NITROGEN 61 MG/DL (7-18); CHLORIDE 94 MEQ/L (98-107); GLOMERULAR FILTRATION RATE 33 ML/MIN (>89); MAGNESIUM 2.2 MG/DL (1.5-2.5); POTASSIUM 3.4 MEQ/L (3.5-5.1); SODIUM (NA) 137 MEQ/L (136-145); TOTAL BILIRUBIN ADULT 1.2 MG/DL (0.2-1.0)
[2017-01-23 06:49] LABS: BANDS 16 % (0-6); CORRECTED NUCLEATED RBC 2 /100 WBC (0-0); EOSINOPHILS 1 % (0-4); PLATELET ESTIMATE SMEAR NORMAL (NORMAL); PLATELET MORPHOLOGY NORMAL (NORMAL); POLYS (SEG NEUTROPHILS) 68 % (16-70); SCAN/DIFF FINAL DIFF MANUAL; WBC DIFF SAMPLE 100
[2017-01-23] MEDS: MULTIVITAMIN TAB PO SCH (08:52)
[2017-01-23] MEDS: ARTIFICIAL TEARS OPTH SOLN 15 ML BTL EACH EYE SCH ×3 (08:52→16:53)
[2017-01-23] MEDS: ASPIRIN 81 MG CHEW TAB CHEW SCH (08:52)
[2017-01-23] MEDS: SODIUM CHLORIDE 0.9% FLUSH 10 ML FLUSH IV FLUSH SCH ×2 (08:52→21:39)
[2017-01-23] MEDS: PANTOPRAZOLE SODIUM 40 MG VIAL IV SCH (08:52)
[2017-01-23] MEDS: AMIODARONE INJ 450 MG in DEXTROSE 5% IN WATE(EXCEL) INJ 241 ML IV SCH ×2 (08:53)
[2017-01-23] MEDS: LACTULOSE SYRUP 20 GM/30 ML CUP PO SCH (08:53)
[2017-01-23] MEDS: DOCUSATE SODIUM 50 MG/SENNA 8.6 MG TAB PO SCH ×2 (08:54→21:00)
[2017-01-23] MEDS: MEGESTROL ACETATE SUSP 400 MG/10 ML CUP PO SCH ×2 (08:54→16:53)
[2017-01-23] MEDS: SODIUM BICARBONATE 8.4% INJ 150 MEQ in SODIUM CHLOR 0.9% 1000 ML INJ 1,000 ML IV SCH (09:40)
--- NOTE | 2017-01-23 12:35 | HHI.NPPN ---
Subjective Additional Remarks More awake today, seen with family at bedside. Objective Data Data 01/22/17 01/23/17 19:00 07:00 Intake Total 822 ml 1403 ml Output Total 400 ml 1150 ml Balance 422 ml 253 ml Intake Oral 240 ml 360 ml IV Total 582 ml 1043 ml Output Urine Total 400 ml 1150 ml # Bowel Movements 2 0 Vital Signs Date Time Temp Pulse Resp B/P Pulse Ox O2 Delivery O2 Flow Rate FiO2 01/23/17 06:00 107 01/23/17 04:00 107 01/23/17 04:00 97.2 107 30 105/70 100 93/85 01/23/17 02:00 109 01/23/17 00:00 101 01/23/17 00:00 97.6 101 29 101/65 100 86/74 01/22/17 22:06 100 Nasal Cannula 2.00 01/22/17 22:00 100 01/22/17 20:00 98.1 104 30 106/70 100 99/72 01/22/17 20:00 104 01/22/17 18:00 107 01/22/17 16:00 107 01/22/17 16:00 98.9 107 16 116/73 100 104/65 01/22/17 14:00 114 -: 01/23/17 0524 01/23/17 0524 Physical Exam General Appearance: No Acute Distress, Comfortable Throat Throat Exam: Oral Mucosa [place] & Moist Neck Neck Exam: Neck Supple Pulmonary Resp Exam: Decreased Bases, Diminished Breath Sounds Cardiology CV Exam: Regular Gastrointestinal/Abdomen GI Exam: Soft, Non-Tender Musculoskeletal MS Exam: Joints Intact Integumentary Skin Exam: Warm, Dry, Intact Extremeties Extremities Exam: No Edema Neurologic Neuro Exam: Awake Assessment/Plan Problem List: (1) Acute kidney injury Plan: PREMA on CKD 3: The patient follows up with Dr. Misael Cunningham as an outpatient. Her baseline creatinine has been near 1.6-1.8. PREMA after episode of V-tach 01/21, with possible ATN secondary to hypoperfusion during episodes of V-tach. In addition, the patient was initially treated with vancomycin and Zosyn for pneumonia at time of her presentation here. There may be some ATN secondary to this, vancomycin has been held at this point. Renal function has improved with gentle IVFs, UOP has improved to 1.5L UOP/ 24 hours. Hyperkalemia has resolved. Continue IVFs for now at 50cc/hour. If creatinine stable tomorrow, may consider to stop IVFs. The patient had been on Bumex at home with 1 mg p.o. b.i.d. Bumex dosing for CHF. This has been on hold, may consider to restart tomorrow if creatinine and vitals are stable. At this point there is no indications for dialysis and the patient will be a poor candidate for dialysis overall given her overall medical conditions. This was discussed with the family. (2) CHF (congestive heart failure) Plan: The patient has a 20% ejection fraction, is to continue medical management. Continue to monitor. Consider to restart bumex as renal function further stabilizes. (3) Metabolic acidosis Plan: Improved, will stop HCO3 with IVFs. (4) Failure to thrive in adult Plan: Continue to follow goals of care with family (5) V-tach Plan: Resolved now, continue to monitor Wade Cunningham MD Jan 23, 2017 12:35
[2017-01-23] MEDS: METOPROLOL TARTRATE 5 MG/5 ML VIAL IV PUSH PRN (13:25)
--- NOTE | 2017-01-23 13:35 | HHI.GIFU ---
Subjective Remarks Pt resting in bed, family member at bedside. Denies abd pain, n/v. Objective Vitals I&O Vital Signs Date Time Temp Pulse Resp B/P Pulse Ox O2 Delivery O2 Flow Rate FiO2 01/23/17 06:00 107 01/23/17 04:00 107 01/23/17 04:00 97.2 107 30 105/70 100 93/85 01/23/17 02:00 109 01/23/17 00:00 101 01/23/17 00:00 97.6 101 29 101/65 100 86/74 01/22/17 22:06 100 Nasal Cannula 2.00 01/22/17 22:00 100 01/22/17 20:00 98.1 104 30 106/70 100 99/72 01/22/17 20:00 104 01/22/17 18:00 107 01/22/17 16:00 107 01/22/17 16:00 98.9 107 16 116/73 100 104/65 01/22/17 14:00 114 I/O 01/22/17 01/22/17 01/22/17 01/23/17 01/23/17 01/23/17 07:00 15:00 23:00 07:00 15:00 23:00 Intake Total 439 ml 822 ml 843 ml 560 ml Output Total 225 ml 400 ml 650 ml 500 ml Balance 214 ml 422 ml 193 ml 60 ml Intake Oral 240 ml 240 ml 120 ml IV Total 439 ml 582 ml 603 ml 440 ml Output Urine Total 225 ml 400 ml 650 ml 500 ml # Bowel Movements 2 0 0 Laboratory Laboratory Tests Test 01/22/17 01/23/17 18:00 05:24 Sodium Level 134 137 White Blood Count 8.3 Red Blood Count 4.04 Hemoglobin 12.6 Hematocrit 37.7 Mean Corpuscular Volume 93.2 Mean Corpuscular Hemoglobin 31.1 Mean Corpuscular Hemoglobin 33.3 Concent Red Cell Distribution Width 19.6 Platelet Count 162 Mean Platelet Volume 7.9 Neutrophils (%) (Auto) 74.0 Lymphocytes (%) (Auto) 15.5 Monocytes (%) (Auto) 9.2 Eosinophils (%) (Auto) 1.0 Basophils (%) (Auto) 0.3 Neutrophils # (Auto) 6.1 Lymphocytes # (Auto) 1.3 Monocytes # (Auto) 0.8 Eosinophils # (Auto) 0.1 Basophils # (Auto) 0.0 CBC Comment AUTO DIFF Differential Total Cells 100 Counted Neutrophils % (Manual) 68 Band Neutrophils % 16 Lymphocytes % 10 Monocytes % 5 Eosinophils % 1 Neutrophils # (Manual) 7.0 Nucleated Red Blood Cells 2 Differential Comment FINAL DIFF MANUAL Platelet Estimate NORMAL Platelet Morphology Comment NORMAL Potassium Level 3.4 Chloride Level 94 Carbon Dioxide Level 34.0 Anion Gap 9 Blood Urea Nitrogen 61 Creatinine 1.85 Estimat Glomerular Filtration 33 Rate Random Glucose 179 Calcium Level 8.7 Phosphorus Level 3.3 Magnesium Level 2.2 Total Bilirubin 1.2 Aspartate Amino Transf 150 (AST/SGOT) Alanine Aminotransferase 237 (ALT/SGPT) Alkaline Phosphatase 104 Total Protein 6.1 Albumin 2.7 Imaging Last Impressions Liver Ultrasound 01/22/17 0000 Signed Impressions: Service Date/Time: Sunday, January 22, 2017 14:51 - CONCLUSION: 1. Dilatation the common bile duct likely reflecting a reservoir following cholecystectomy. This could be correlated clinically and with the patient's laboratory biliary status. 2. Bilateral pleural effusions. Mello Oglesby MD Upper Extremity Ultrasound 01/21/17 0000 Signed Impressions: Service Date/Time: Saturday, January 21, 2017 18:25 - CONCLUSION: 1. No evidence of deep venous thrombosis. 2. The right subclavian vein could not be compressed due to positioning and patient's body habitus. Kostas Yoo MD Chest X-Ray 01/17/17 1556 Signed Impressions: Service Date/Time: Tuesday, January 17, 2017 16:07 - CONCLUSION: 1. Left basilar opacity may represent atelectasis, consolidation, and/or pleural effusion. 2. Stable enlargement of the cardiac silhouette within abnormal cardiac shape. Mello Dorman MD Head CT 01/17/17 0000 Signed Impressions: Service Date/Time: Tuesday, January 17, 2017 17:13 - CONCLUSION: Negative for an acute process. Herve Fam MD FACR Chest CT 01/17/17 0000 Signed Impressions: Service Date/Time: Tuesday, January 17, 2017 17:18 - CONCLUSION: Cardiomegaly. Small right effusion. Mild basilar atelectasis. Mello Cameron MD Abdomen/Pelvis CT 01/17/17 0000 Signed Impressions: Service Date/Time: Tuesday, January 17, 2017 17:18 - CONCLUSION: Massive cardiomegaly without pericardial effusion. Minimal failure with small right pleural effusion and trace ascites. There is no gastric distention. Herve Fam MD FACR Physical Exam CHEST: CTA CARDIAC: Irregular ABDOMEN: +BS, soft, nondistended, nontender; no hepatosplenomegaly EXTREMITIES: No clubbing, cyanosis, or edema. MANAGER INDUSTRIAL: Pt is lethargic Assessment and Plan Plan ASSESSMENT: - Elevated transaminases. increasing. US --> CBD dilatation likely reservoir after cholecystectomy Per daughter, no prior history of liver disease in patient or other family members and denies any history of hepatitis, cirrhosis, or alcohol use. S/P cholecystectomy. Her daughter reports that she did have a bout of nausea and vomiting the night before this hospitalization, but has not had any further episodes. The patient denies any abdominal pain. Abdomen/Pelvis CT (01/17/17)----> Massive cardiomegaly without pericardial effusion. Minimal failure with small right pleural effusion and trace ascites. There is no gastric distention. LFTs on admission 1.2, AST 52, ALT 48, Alk Phosph 97. Platelets are stable 244, PT 16.7, INR 1.5, Ammonia 37. This is most likely multifactorial, secondary to hepatic congestion, sepsis, possibly medication. - Abdominal distention. CT as above. + BM's. - Sepsis/Bacteremia. Cx with bacillus species, not anthracis. ID following. - CAD, Chronic systolic heart failure with EF, Hx aflutter (S/P ablation), elevated troponin. Pt had run of Vtach on 01/21. CCM/Cardiology following. A sodium bicarbonate infusion was given. No defibrillation required. The patient then converted into atrial fibrillation with RVR. She was started on Amiodarone. HR stable. AICD was interrogated and turned off. - PREMA. Worsening 2.69. Renal following. The patient continues to be oliguric with 650 cc urine output in 24 hours. - HTN, Hyperlipidemia, COPD, Small right pleural effusion, DM per primary - Hx embolic CVA/left basal ganglia. s/p angiogram and was found to have a large clot at the ICA, M1 segment, s/p embolectomy with [facility] of antegrade flow on 10/25/16 PLAN: - Cardiac diet - consider MRCP if LFTs continue to worsen - await Hepatitis profile - await KERI, ASMA, AMA - Monitor LFTs - Palliative care was consulted and extensive discussion with the family resulted in decision of an alternate CODE STATUS with ACLS medications only. - Avoid hepatotoxic meds - Supportive care - Further recommendations to follow based on results of above - Pt was seen and examined by myself and Dr. Rocha and this note was written on his behalf Kathy Burks Jan 23, 2017 1:35 pm
[2017-01-23] MEDS: SODIUM CHLOR 0.9% 1000 ML INJ 1,000 ML IV SCH (18:00)
--- NOTE | 2017-01-23 18:26 | HHI.CCPN ---
Subjective Remarks/Hospital Course 71-year-old female. Date of admission 01/17/2017. Past medical history includes prior CVA with right-sided weakness, a flutter status ablation 2069, chronic kidney disease stage III sees Dr. Cunningham, coronary artery disease sees [facility] cardiology, hypertension, chronic systolic heart failure ejection fraction 20%, COPD, dyslipidemia and diabetes. In September, patient had prolonged hospitalization for CVA with right-sided hemiparesis and aphasia. She was seen in rehabilitation. And eventually discharged to assisted. One week ago, patient was made hospice per physician. Daughter Triny Amor rescinded and patient was brought to [facility] for further evaluatio CT head negative. CT chest with cardiac megaly, small pleural effusion. No definite elevated troponin, acute kidney injury creatinine 2.7, leukocytosis, lactic acidosis and 9.3. Patient is currently complaining of nausea and vomiting in his throat twice daily. No abdominal pain however. CT abdomen/ pelvis revealed no acute findings. Received 1 L normal saline ED due to hypotension is currently hemodynamically stable. Subjective: 01/18: Patient complains of being hungry this a.m., nausea and vomiting resolved. Ice chips tolerated well. Plan to advance to clear liquid diet. Patient this afternoon slightly lethargic, but easily arousable. ABG obtained rule out CO2 narcosis, Zoloft placed on hold. 01/19: Patient tolerating clear liquid diet with Ensure supplementation. Patient was noted to be tachycardic heart rate in the 120s, metoprolol when necessary being administered. Plan to resume metoprolol at lower dose 12.5 mg, if hemodynamically tolerated. Bacteremia noted gram-negative rods, patient's on Zosyn, leukocytosis resolved. 01/20: Afebrile .The patient is now tolerating a renal diet. Metoprolol PO instituted, the patient continues to be tachycardic. Lactate level slightly elevated 2.3, slightly secondary to underlying cardiac etiology with noted BNP greater than 5000. Patient remains lethargic, noted ammonia level, lactulose instituted. 01/21: Patient with poor PO intake, retaining food in mouth. Formal swallow study this a.m., diet changed to pured. Patient was noted to be more lethargic , ammonia level increasing 58, and patient was noted to be hypoglycemic glucose 38, with transaminitis, GI consulted. Creatinine was noted to be worsening with elevation of potassium. Bacteremia noted to be bacillus, but Vancomycin was discontinued, consideration of carbapenem. Consulted ID for recommendations. 01/22: Yesterday the patient had an episode of ventricular tachycardia with a rate of 160, potassium level was noted to be 5.3. Emergently received sodium bicarbonate, D50 and insulin, Kayexalate, the patient has an indwelling AICD set to defibrillate at rate 171. A sodium bicarbonate infusion was instituted. No defibrillation was required. The patient then converted into atrial fibrillation with RVR, low 100s. Amiodarone was bolused and amiodarone continues to infuse. Heart rate during the night range from 90s to 110. The patient previously had been in hospice care with a DNR, which have been rescinded for this hospitalization. Palliative care was consulted yesterday and extensive discussion with the family resulted in decision of an alternate CODE STATUS with ACLS medications only. AICD was interrogated and turned off. GI was consulted regarding patient's transaminitis,liver US and labs are pending. The patient continues to be oliguric with 650 cc urine output in 24 hours. Nephrology has been consulted for recommendations. 01/23: Per nephrology the patient is not a candidate for dialysis, discussed with Dr. Cunningham. Creatinine improved today, will discontinue sodium bicarbonate infusion, calcium level now within normal limits. ID is following, antibiotics have been discontinued. Cardiology no interventions plan, they have signed off. Extensive of discussion with the family. Palliative is following should plan for transfer to hospice possibly on Tuesday as no further interventions are planned. Objective Vital Signs Date Time Temp Pulse Resp B/P Pulse Ox O2 Delivery O2 Flow Rate FiO2 01/23/17 06:00 107 01/23/17 04:00 97.2 30 105/70 100 93/85 01/22/17 22:06 Nasal Cannula 2.00 Intake and Output 01/22/17 01/22/17 01/23/17 08:00 16:00 00:00 Intake Total 439 ml 822 ml 843 ml Output Total 225 ml 400 ml 650 ml Balance 214 ml 422 ml 193 ml Result Diagram: 01/23/17 0524 01/23/17 0524 Imaging Last Impressions Chest X-Ray 01/17/17 0003 Signed Impressions: Service Date/Time: Tuesday, January 17, 2017 16:07 - CONCLUSION: 1. Left basilar opacity may represent atelectasis, consolidation, and/or pleural effusion. 2. Stable enlargement of the cardiac silhouette within abnormal cardiac shape. Mello Dorman MD Head CT 01/17/17 0000 Signed Impressions: Service Date/Time: Tuesday, January 17, 2017 17:13 - CONCLUSION: Negative for an acute process. Herve Fam MD FACR Chest CT 01/17/17 0000 Signed Impressions: Service Date/Time: Tuesday, January 17, 2017 17:18 - CONCLUSION: Cardiomegaly. Small right effusion. Mild basilar atelectasis. Mello Cameron MD Abdomen/Pelvis CT 01/17/17 0000 Signed Impressions: Service Date/Time: Tuesday, January 17, 2017 17:18 - CONCLUSION: Massive cardiomegaly without pericardial effusion. Minimal failure with small right pleural effusion and trace ascites. There is no gastric distention. Herve Fam MD FACR Objective Remarks Infusions Amiodarone 0.5 mg/hour GENERAL: Elderly female awake and oriented x 3 SKIN: Warm and dry. HEAD: Atraumatic. Normocephalic. EYES: Pupils equal and round. No scleral icterus. No injection or drainage. ENT: No nasal bleeding or discharge. Mucous membranes pink and moist. Uvula midline NECK: Trachea midline. No JVD. CARDIOVASCULAR: Regular rate and irregular rhythm. RESPIRATORY: No accessory muscle use. Clear to auscultation. Breath sounds equal bilaterally. Nasal cannula GASTROINTESTINAL: Abdomen soft, non-tender, nondistended. Hepatic and splenic margins not palpable. MUSCULOSKELETAL: Extremities without clubbing, cyanosis, or edema. No obvious deformities. NEUROLOGICAL: Awake and alert. No obvious cranial nerve deficits. Motor grossly within normal limits. 3/5 muscle strength in the arms and legs. Normal speech. PSYCHIATRIC: Appropriate mood and affect; insight and judgment normal. A/P Assessment and Plan 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 Depression Failure to thrive Insomnia Lethargy Hold Zoloft 50 mg by mouth daily for depression secondary to patient's current lethargy Holding Restoril 7.5 mg daily at bedtime as home medication for insomnia Continue Megace 400 mg by mouth daily for failure to thrive CT Brain 01/17 revealed no acute intracranial findings Avoid all sedating type medications, and correction of hypoglycemia Ammonia level 37 today continue lactulose CV: Severe sepsis with multisystem organ failure Chronic systolic heart failure ejection fraction 20% History of atrial flutter status post ablation 10/[address] Velazquez Hypertension Dyslipidemia Lactic acidosis is likely cardiac etiology Status post AICD placement-deactivated 01/21 Elevated troponin H/O HI 2-D echo 11/08 revealed EF 20-25%. Global hypokinesis. Akinesis and scarring of the inferior posterior margin. Moderate MR/TR. Mild left atrial dilation. DARLIN 55 mmHg Status post 1 L normal saline in ED. Holding Zocor 40 mg by mouth daily for dyslipidemia. Resume when clinically indicated Holding Bumex 2 mg by mouth twice a day and spironolactone 25 mg at night due to hypotension and acute kidney injury.. 01/20 Lactate 2.3 Echocardiogram 01/18-ejection fraction 2024%. Possible basal posterior and apical kinesis and severe hypokinesis of all other segments Dr. Olson, digital editor- signed off 01/21 Continue aspirin 81 mg by mouth daily 01/20 BNP > 5000 01/21 episode of V. tach was self resolution. A. fib RVR amiodarone infusion initiated, will restart Metoprolol when clinically improvement in BP. 01/24 Start amiodarone PO in anticipation of transfer Resp: History COPD Small right pleural effusion Nasal cannula to maintain saturations greater than equal to 92%, early 2 L/m Incentive spirometry while awake Duo nebs every 6 hours and albuterol every 2 hours when necessary dyspnea CT chest 01/08 revealed massive cardiomegaly, small right pleural effusion 01/18 Metabolic acidosis was noted patient was placed on bicarbonate infusion, anion gap improved, discontinued on 01/19, restarted 01/21 01/23 bicarbonate level 34, discontinue sodium bicarbonate infusion GI: Nausea/vomiting-resolved Transaminitis 1800 ADA diet Protonix for GI prophylaxis PeriColace for bowel regimen On Megace for anorexia. CT abdomen/pelvis revealed no signs of bowel obstruction. 01/21 liver enzymes continue to increase, with severe hypoglycemia , shock liver ? GI consulted 01/22 F/U liver US, Hepatitis panel : Cavanaugh catheter for accurate I's and O's in a critically ill patient Endo: Diabetes mellitus Hypoglycemia Sliding-scale insulin with Accu-Cheks every 4 hours to maintain euglycemia/low regimen Holding glipizide 10 mg before meals TSH and cortisol WNL Renal: Acute kidney injury in the setting of chronic kidney disease Baseline creatinine around 1.7 Avoid nephrotoxic drugs Accurate I's and O's Monitor urine output Check urine electrolytes and eosinophils No hydronephrosis on CT abdomen/pelvis Dr. Cunningham is her sweetbread trimmer 01/20 Restarted PO Bumex 1 mg twice a day (home medication), discontinued with creatinine elevation 1.62->2.39 (vancomycin discontinued) 01/22 Nephrology consulted, 01/22 given Bumex 1 mg x1 . Noted 5 kg wt gain since admission. Creatinine 2.81- > 2.69 today Heme: Leukocytosis-resolved Elevated PT/INR and PTT Monitor CBC daily. Follow trends Holding Eliquis 5 mg BID, INR 1.3 01/17 fibrinogen WNL ID: Severe sepsis source pneumonia aspiration? UTI? Day 5 Zosyn, vancomycin discontinued 08/26 worsening creatinine 01/21 ID following- Dr. Johnson, all antibiotics discontinued 01/22 per ID Pertinent cultures - Blood cultures 2 01/17 -Bacillus - Urine culture 01/17 - pending Sputum culture-pending influenza A & B-negative FEN: Hyponatremia Hyperkalemia-resolved Hyper-magnesium Hyperphosphatemia 01/21 IVF D5NS @42cc/hr Received hyperkalemia protocol in ED. 01/23 sodium bicarbonate discontinued MSK: PT evaluate and treat 01/21 Bilateral upper arm edema-ultrasound bilateral lower extremities negative Access - Utilize peripheral IV. Change PIV's 01/21 Central line if indicated Prophylaxis - GI -Protonix - DVT - SCD/holding pharmacological prophylaxis with eliquis is due to acute kidney injury creatinine greater than 1.5 Level 3 Discussed with daughter Ellie and DIRECTOR PUBLIC SERVICE at bedside.All questions answered. Palliative care consulted, regarding multisystem organ failure to define goals of care. Patient previously and hospice with DNR that was rescinded upon admission to the hospital. 01/22 Yesterday after V. tach episode, family discussion with palliative care medicine. It was decided alternate CODE STATUS be initiated, ACLS drugs only. AICD was interrogated and deactivated. Possible plan for transfer back to hospice, will consult nephrology for any additional recommendations and further discussion with palliative medicine regarding disposition. 01/23: Further interventions planned. Consult with palliative care medicine regarding transition back to hospice care on Tuesday. Patient is not a candidate for dialysis per nephrology, Dr. Cunningham, no further interventions planned. Physician Marlen Suarez MD Jan 23, 2017 18:26
[2017-01-23] MEDS: ACETAMINOPHEN 325 MG TAB PO PRN (19:36)
[2017-01-23] MEDS ORDERED: HYALURONIDASE HUMAN 150 UNIT/1 ML VIAL I-DERMAL ONE (21:00)
[2017-01-23] MEDS: ACETAMINOPHEN/HYDROcodone 325 MG/5 MG TAB PO PRN (21:39)
[2017-01-23] MEDS: AMIODARONE 200 MG TAB PO SCH (23:06)
[2017-01-24] VITALS (21 sets, daily range): BP systolic 100–114; BP diastolic 70–84; PULSE 116–127; RESP 13–29; TEMP 98.1–99.2; O2SAT 94–100
[2017-01-24] MEDS: ACETAMINOPHEN/HYDROcodone 325 MG/5 MG TAB PO PRN (01:18)
[2017-01-24] MEDS: CHLORHEXIDINE GLUCONATE 2 % 1 PACK (2 CLOTHS) TOP SCH (04:00)
[2017-01-24 05:06] LABS: AUTOMATED NEUTROPHIL # 5.5 TH/MM3 (1.8-7.7); BASOPHIL % 0.2 % (0.0-2.0); EOSINOPHIL # 0.1 TH/MM3 (0-0.4); EOSINOPHIL % 1.3 % (0.0-4.0); HEMATOCRIT 40.3 % (35.0-46.0); LYMPH % 24.9 % (9.0-44.0); LYMPHOCYTE # 2.2 TH/MM3 (1.0-4.8); MEAN CELL VOLUME 94.9 FL (80.0-100.0); MEAN CORPUSCULAR HEMOGLOBIN 30.1 PG (27.0-34.0); MEAN CORPUSCULAR HGB CONC 31.7 % (32.0-36.0); MONO % 10.2 % (0.0-8.0); NEUT % 63.4 % (16.0-70.0); PLATELET COUNT 128 TH/MM3 (150-450); RED BLOOD COUNT 4.24 MIL/MM3 (4.00-5.30); RED CELL DISTRIBUTION WIDTH 20.1 % (11.6-17.2); WHITE BLOOD COUNT 8.7 TH/MM3 (4.0-11.0)
[2017-01-24 05:17] LABS: HEMO FLAGS AUTO DIFF
[2017-01-24 05:20] LABS: INTERNATIONAL NORMALIZED RATIO 1.6 RATIO; PROTHROMBIN TIME - PATIENT 17.5 SEC (9.8-11.6)
[2017-01-24 05:32] LABS: BICARBONATE 29.6 MEQ/L (21.0-32.0); POTASSIUM 3.9 MEQ/L (3.5-5.1)
[2017-01-24 05:34] LABS: INDIRECT BILIRUBIN 0.6 MG/DL (0.0-0.8)
[2017-01-24] MEDS: INSULIN NovoLIN REGULAR SUPPLEMENTAL SCALE SQ SCH ×3 (06:00→18:00)
[2017-01-24 07:03] LABS: BANDS 8 % (0-6); CORRECTED NUCLEATED RBC 3 /100 WBC (0-0); EOSINOPHILS 1 % (0-4); NEUTROPHIL # MANUAL DIFF 5.5 TH/MM3 (1.8-7.7); POLYS (SEG NEUTROPHILS) 55 % (16-70); WBC DIFF SAMPLE 100
[2017-01-24 07:04] LABS: HEMATOLOGY STUDY COMMENT F; POLYCHROMASIA 3.3 % (0.0-1.9)
[2017-01-24 07:05] LABS: ACANTHOCYTES OCC (NORMAL); PLATELET ESTIMATE SMEAR LOW (NORMAL); PLATELET MORPHOLOGY NORMAL (NORMAL); SCAN/DIFF FINAL DIFF MANUAL
[2017-01-24] MEDS: DOCUSATE SODIUM 50 MG/SENNA 8.6 MG TAB PO SCH (09:00)
--- NOTE | 2017-01-24 10:48 | RADRPT ---
EXAM DATE/TIME: 01/24/2017 08:53 [facility] COMPARISON: No previous studies available for comparison. INDICATIONS : Left arm swelling. MEDICAL HISTORY : Congestive heart failure. Hypercholesterolemia. CVA. Confusion. Weakness. CAD. Palpitations. Aflutte r. HTN. COPD. Asthma. Dyspnea. Diabetes. Gait problems. Anxiety. Anticoagulant therapy. SURGICAL HISTORY : Pacemaker. Appendectomy. Cholecystectomy. Hysterectomy. Blood transfusions. ENCOUNTER: Initial ACUITY: 1 day PAIN SCORE: 4/10 LOCATION: Left arm. FINDINGS: There is spontaneous flow documented in the brachial, basilic, cephalic, axillary, and subclavian vei ns. The vessels are compressible and augmentation response is documented. No filling defects are se en. The flow is phasic with respiration. Direction of flow in the jugular vein is caudal. CONCLUSION: Normal examination for a patient of this age. Kip Arriaga MD on January 24, 2017 at 10:45 Board Certified Radiologist. This report was verified electronically.
--- NOTE | 2017-01-24 10:48 | HHI.GIFU ---
Subjective Remarks Resting in bed. Feeling better. Taking po. Calorie count is in progress. No n/v. No abdominal pain. Objective Vitals I&O Vital Signs Date Time Temp Pulse Resp B/P Pulse Ox O2 Delivery O2 Flow Rate FiO2 01/24/17 07:54 99 Nasal Cannula 2.00 01/24/17 06:00 126 01/24/17 06:00 126 20 113/78 100 01/24/17 05:00 126 01/24/17 05:00 126 17 113/78 100 01/24/17 04:00 98.1 126 22 100/78 100 01/24/17 04:00 126 01/24/17 02:00 124 27 104/81 100 Arterial Line 01/24/17 02:00 124 01/24/17 01:00 124 01/24/17 01:00 124 29 106/80 100 Arterial Line 01/24/17 00:00 98.1 123 21 107/82 100 Arterial Line 01/24/17 00:00 123 01/23/17 23:00 124 01/23/17 23:00 124 22 105/74 100 Arterial Line 01/23/17 22:00 123 01/23/17 22:00 123 25 114/75 100 Arterial Line 01/23/17 21:00 118 31 126/59 100 108/76 01/23/17 21:00 118 01/23/17 20:00 114 01/23/17 20:00 98.0 114 17 95/78 100 102/74 01/23/17 19:45 100 Nasal Cannula 2.00 01/23/17 18:00 112 01/23/17 16:00 119 01/23/17 16:00 97.7 120 20 95/74 100 93/87 01/23/17 14:00 119 01/23/17 12:00 97.4 107 18 102/74 100 96/89 01/23/17 12:00 107 I/O 01/23/17 01/23/17 01/23/17 01/24/17 01/24/17 01/24/17 07:00 15:00 23:00 07:00 15:00 23:00 Intake Total 560 ml 1162 ml 442 ml 390 ml Output Total 500 ml 450 ml 250 ml 200 ml Balance 60 ml 712 ml 192 ml 190 ml Intake Oral 120 ml 480 ml 240 ml IV Total 440 ml 682 ml 202 ml 390 ml Output Urine Total 500 ml 450 ml 250 ml 200 ml # Bowel Movements 0 0 0 0 Laboratory Laboratory Tests Test 01/24/17 04:29 White Blood Count 8.7 Red Blood Count 4.24 Hemoglobin 12.8 Hematocrit 40.3 Mean Corpuscular Volume 94.9 Mean Corpuscular Hemoglobin 30.1 Mean Corpuscular Hemoglobin 31.7 Concent Red Cell Distribution Width 20.1 Platelet Count 128 Mean Platelet Volume 8.2 Neutrophils (%) (Auto) 63.4 Lymphocytes (%) (Auto) 24.9 Monocytes (%) (Auto) 10.2 Eosinophils (%) (Auto) 1.3 Basophils (%) (Auto) 0.2 Neutrophils # (Auto) 5.5 Lymphocytes # (Auto) 2.2 Monocytes # (Auto) 0.9 Eosinophils # (Auto) 0.1 Basophils # (Auto) 0.0 CBC Comment AUTO DIFF Differential Total Cells 100 Counted Neutrophils % (Manual) 55 Band Neutrophils % 8 Lymphocytes % 25 Monocytes % 11 Eosinophils % 1 Neutrophils # (Manual) 5.5 Nucleated Red Blood Cells 3 Differential Comment FINAL DIFF MANUAL Platelet Estimate LOW Platelet Morphology Comment NORMAL Polychromasia 3.3 Basophilic Stippling FAINT Acanthocytes OCC Hematology Comments F Prothrombin Time 17.5 Prothromb Time International 1.6 Ratio Sodium Level 134 Potassium Level 3.9 Chloride Level 94 Carbon Dioxide Level 29.6 Anion Gap 10 Blood Urea Nitrogen 65 Creatinine 1.77 Estimat Glomerular Filtration 34 Rate Random Glucose 165 Calcium Level 8.8 Total Bilirubin 1.0 Direct Bilirubin 0.4 Indirect Bilirubin 0.6 Aspartate Amino Transf 148 (AST/SGOT) Alanine Aminotransferase 272 (ALT/SGPT) Alkaline Phosphatase 140 Total Protein 6.5 Albumin 2.5 Imaging Last Impressions Liver Ultrasound 01/22/17 0000 Signed Impressions: Service Date/Time: Sunday, January 22, 2017 14:51 - CONCLUSION: 1. Dilatation the common bile duct likely reflecting a reservoir following cholecystectomy. This could be correlated clinically and with the patient's laboratory biliary status. 2. Bilateral pleural effusions. Mello Oglesby MD Upper Extremity Ultrasound 01/21/17 0000 Signed Impressions: Service Date/Time: Saturday, January 21, 2017 18:25 - CONCLUSION: 1. No evidence of deep venous thrombosis. 2. The right subclavian vein could not be compressed due to positioning and patient's body habitus. Kostas Yoo MD Chest X-Ray 01/17/17 1556 Signed Impressions: Service Date/Time: Tuesday, January 17, 2017 16:07 - CONCLUSION: 1. Left basilar opacity may represent atelectasis, consolidation, and/or pleural effusion. 2. Stable enlargement of the cardiac silhouette within abnormal cardiac shape. Mello Dorman MD Head CT 01/17/17 0000 Signed Impressions: Service Date/Time: Tuesday, January 17, 2017 17:13 - CONCLUSION: Negative for an acute process. Herve Fam MD FACR Chest CT 01/17/17 0000 Signed Impressions: Service Date/Time: Tuesday, January 17, 2017 17:18 - CONCLUSION: Cardiomegaly. Small right effusion. Mild basilar atelectasis. Mello Cameron MD Abdomen/Pelvis CT 01/17/17 0000 Signed Impressions: Service Date/Time: Tuesday, January 17, 2017 17:18 - CONCLUSION: Massive cardiomegaly without pericardial effusion. Minimal failure with small right pleural effusion and trace ascites. There is no gastric distention. Herve Fam MD FACR Physical Exam HEENT: Normocephalic, normocephalic CHEST: CTA, diminished CARDIAC: Irregular ABDOMEN: +BS, soft, nondistended, nontender; no hepatosplenomegaly EXTREMITIES: No clubbing, cyanosis, or edema. 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 Per daughter, no prior history of liver disease in patient or other family members and denies any history of hepatitis, cirrhosis, or alcohol use. S/P cholecystectomy. Her daughter reports that she did have a bout of nausea and vomiting the night before this hospitalization, but has not had any further episodes. The patient denies any abdominal pain. Abdomen/Pelvis CT (01/17/17)----> Massive cardiomegaly without pericardial effusion. Minimal failure with small right pleural effusion and trace ascites. There is no gastric distention. Liver Ultrasound (01/22/17)----> 1. Dilatation the common bile duct likely reflecting a reservoir following cholecystectomy. This could be correlated clinically and with the patient's laboratory biliary status. 2. Bilateral pleural effusions. LFT T. Bili 0.4, AST 148, ALT 272, Alk Phosph 140. This is most likely multifactorial, secondary to hepatic congestion, sepsis, possibly medication. - Abdominal distention. Improved. CT as above. + BM's. - Sepsis/Bacteremia. Cx with bacillus species, not anthracis. WBC 8.7. Off abx. ID following. - CAD, Chronic systolic heart failure with EF, Hx aflutter (S/P ablation), elevated troponin. Pt had run of Vtach on 01/21. CCM/Cardiology following. A sodium bicarbonate infusion was given. No defibrillation required. The patient then converted into atrial fibrillation with RVR. She was started on Amiodarone. HR stable. AICD was interrogated and turned off. - PREMA. Creat 1.77. - HTN, Hyperlipidemia, COPD, Small right pleural effusion, DM per primary - Hx embolic CVA/left basal ganglia. s/p angiogram and was found to have a large clot at the ICA, M1 segment, s/p embolectomy with mormon of antegrade flow on 10/25/16 PLAN: - Cardiac diet - Calorie count in process from 01/21-01/23 with results to be posted on 01/24. - Await Hepatitis profile - Await KERI, ASMA, AMA - Monitor LFTs - Avoid hepatotoxic meds - Palliative care was consulted and extensive discussion with the family resulted in decision of an alternate CODE STATUS with ACLS medications only. - Supportive care - Further recommendations to follow based on results of above - Pt was seen and examined by myself and Dr. José and this note was written on his behalf Hannah Duque Jan 24, 2017 10:48
[2017-01-24] MEDS: PANTOPRAZOLE SODIUM 40 MG VIAL IV SCH (10:53)
[2017-01-24] MEDS: LACTULOSE SYRUP 20 GM/30 ML CUP PO SCH (10:53)
[2017-01-24] MEDS: SODIUM CHLORIDE 0.9% FLUSH 10 ML FLUSH IV FLUSH SCH (10:53)
[2017-01-24] MEDS: ASPIRIN 81 MG CHEW TAB CHEW SCH (10:53)
[2017-01-24] MEDS: MULTIVITAMIN TAB PO SCH (10:53)
[2017-01-24] MEDS: AMIODARONE 200 MG TAB PO SCH ×2 (10:54→22:31)
[2017-01-24] MEDS: ARTIFICIAL TEARS OPTH SOLN 15 ML BTL EACH EYE SCH ×3 (10:54→18:43)
[2017-01-24 11:49] LABS: ANA SCREEN NEG (NEG)
[2017-01-24] MEDS: MEGESTROL ACETATE SUSP 400 MG/10 ML CUP PO SCH ×2 (11:57→18:43)
--- NOTE | 2017-01-24 12:07 | HHI.HCPN ---
Reason for visit a. To assist with evaluation and management of symptoms including: Confusion , debility, poor appetite b. To assist medical decision maker(s) with: better understanding of current medical conditions; weighing benefits/burdens of medical treatment options; making medical treatment decisions. . Subjective/Interval History Ms. Salinas is a 71 year old female with a history of atrial flutter, history of CVA in 10/2016, hypertension, HLD, COPD, DM, HTN, CHF (EF 2025%), cardiomyopathy, CKD and CAD. Patient's renal functioning improving status post episode of V. tach on December with possible ATN secondary to hypoperfusion. Hemodialysis is not indicated at this time; patient is a poor candidate for hemodialysis secondary to overall condition and poor functional status. Nephrology is following. Appetite is improving but remains inadequate per calorie count completed 2016. Recommendations to continue Glucerna TID. Palliative care discussed artificial nutrition/PEG tube placement with patient and family. Patient repeatedly shakes her head and says "no" to artificial nutrition, but her daughter states she has to have it if necessary. Family requesting to meet with Palliative Care again tomorrow on 01/25/2017; considering readmission to hospice. Patient's daughter, Triny, would like to take her mother back to [place] with her but the family is not in agreement. . . Advance Directives Advance Directive Specifics Documented care wishes: Patient's family states the patient completed her "5 wishes", but it cannot be found at this time. No living will was completed. . Objective Vital Signs Date Time Temp Pulse Resp B/P Pulse Ox O2 Delivery O2 Flow Rate FiO2 01/24/17 07:54 99 Nasal Cannula 2.00 01/24/17 06:00 126 01/24/17 06:00 126 20 113/78 100 01/24/17 05:00 126 01/24/17 05:00 126 17 113/78 100 01/24/17 04:00 98.1 126 22 100/78 100 01/24/17 04:00 126 01/24/17 02:00 124 27 104/81 100 Arterial Line 01/24/17 02:00 124 01/24/17 01:00 124 01/24/17 01:00 124 29 106/80 100 Arterial Line 01/24/17 00:00 98.1 123 21 107/82 100 Arterial Line 01/24/17 00:00 123 01/23/17 23:00 124 01/23/17 23:00 124 22 105/74 100 Arterial Line 01/23/17 22:00 123 01/23/17 22:00 123 25 114/75 100 Arterial Line 01/23/17 21:00 118 31 126/59 100 108/76 01/23/17 21:00 118 01/23/17 20:00 114 01/23/17 20:00 98.0 114 17 95/78 100 102/74 01/23/17 19:45 100 Nasal Cannula 2.00 01/23/17 18:00 112 01/23/17 16:00 119 01/23/17 16:00 97.7 120 20 95/74 100 93/87 01/23/17 14:00 119 Intake & Output 01/24/17 01/24/17 07:00 19:00 Intake Total 832 ml Output Total 450 ml Balance 382 ml Intake Oral 240 ml IV Total 592 ml Output Urine Total 450 ml # Bowel Movements 0 . Physical Exam CONSTITUTIONAL/GENERAL: This is a frail, elderly female patient who is critically ill with multiple organ dysfunction TUBES/LINES/DRAINS: PIV x 3, SCD, Cavanaugh, nasal cannula SKIN: No jaundice, rashes, or lesions. Ecchymoses on upper extremities. No wounds seen anteriorly. Skin temperature appropriate. Not diaphoretic. HEAD: Atraumatic. Normocephalic. EYES: Pupils equal and round and reactive. . No scleral icterus. No injection or drainage. Fundi not examined. ENT: Hearing grossly normal. NECK: Trachea midline. Supple, nontender. No palpable thyroid enlargement or nodularity. CARDIOVASCULAR: Irregularly irregular. No JVD. RESPIRATORY/CHEST: Symmetric, unlabored respirations. Breath sounds diminished bilaterally. On nasal cannula GASTROINTESTINAL: Abdomen soft, non-tender, nondistended. Bowel sounds present. GENITOURINARY: Without palpable bladder distension. Cavanaugh catheter in place. MUSCULOSKELETAL: Extremities without clubbing, cyanosis, or edema. LYMPHATICS: No palpable cervical or supraclavicular adenopathy. NEUROLOGICAL: Lethargy. Patient responds to some simple questions, does not follow commands. PSYCHIATRIC: No obvious anxiety/depression. No apparent hallucinations or other psychotic thought process. . Diagnostic Tests Laboratory Laboratory Tests Test 01/21/17 01/22/17 01/22/17 01/22/17 21:23 04:11 08:39 13:46 White Blood Count 9.8 TH/MM3 11.3 TH/MM3 (4.0-11.0) (4.0-11.0) Red Blood Count 4.00 MIL/MM3 4.05 MIL/MM3 (4.00-5.30) (4.00-5.30) Hemoglobin 12.3 GM/DL 12.0 GM/DL (11.6-15.3) (11.6-15.3) Hematocrit 37.5 % 37.9 % (35.0-46.0) (35.0-46.0) Mean Corpuscular Volume 93.9 FL 93.6 FL (80.0-100.0) (80.0-100.0) Mean Corpuscular Hemoglobin 30.7 PG 29.6 PG (27.0-34.0) (27.0-34.0) Mean Corpuscular Hemoglobin 32.7 % 31.6 % Concent (32.0-36.0) (32.0-36.0) Red Cell Distribution Width 19.1 % 19.2 % (11.6-17.2) (11.6-17.2) Platelet Count 221 TH/MM3 212 TH/MM3 (150-450) (150-450) Mean Platelet Volume 8.6 FL 8.2 FL (7.0-11.0) (7.0-11.0) Neutrophils (%) (Auto) 78.9 % (16.0-70.0) Lymphocytes (%) (Auto) 11.5 % (9.0-44.0) Monocytes (%) (Auto) 9.4 % (0.0-8.0) Eosinophils (%) (Auto) 0.1 % (0.0-4.0) Basophils (%) (Auto) 0.1 % (0.0-2.0) Neutrophils # (Auto) 7.7 TH/MM3 (1.8-7.7) Lymphocytes # (Auto) 1.1 TH/MM3 (1.0-4.8) Monocytes # (Auto) 0.9 TH/MM3 (0-0.9) Eosinophils # (Auto) 0.0 TH/MM3 (0-0.4) Basophils # (Auto) 0.0 TH/MM3 (0-0.2) CBC Comment AUTO DIFF Differential Total Cells 100 Counted Neutrophils % (Manual) 69 % (16-70) Band Neutrophils % 10 % (0-6) Lymphocytes % 13 % (9-44) Monocytes % 8 % (0-8) Neutrophils # (Manual) 7.7 TH/MM3 (1.8-7.7) Nucleated Red Blood Cells 3 /100 WBC (0-0) Differential Comment FINAL DIFF MANUAL Toxic Vacuolation PRESENT (NONE SEEN) Platelet Estimate NORMAL (NORMAL) Platelet Morphology Comment NORMAL (NORMAL) Ovalocytes 1+ (NORMAL) [place] Cells 1+ (NORMAL) Sodium Level 133 MEQ/L (136-145) Potassium Level 3.8 MEQ/L (3.5-5.1) Chloride Level 92 MEQ/L (98-107) Carbon Dioxide Level 24.2 MEQ/L (21.0-32.0) Anion Gap 17 MEQ/L (5-15) Blood Urea Nitrogen 70 MG/DL (7-18) Creatinine 2.69 MG/DL (0.50-1.00) Estimat Glomerular Filtration 21 ML/MIN (>89) Rate Random Glucose 224 MG/DL (74-106) Calcium Level 9.2 MG/DL (8.5-10.1) Phosphorus Level 5.1 MG/DL (2.5-4.9) Magnesium Level 2.4 MG/DL (1.5-2.5) Total Bilirubin 1.1 MG/DL (0.2-1.0) Aspartate Amino Transf 156 U/L (15-37) (AST/SGOT) Alanine Aminotransferase 206 U/L (10-53) (ALT/SGPT) Alkaline Phosphatase 100 U/L (45-117) Total Protein 6.5 GM/DL (6.4-8.2) Albumin 2.8 GM/DL (3.4-5.0) Ammonia 37 MCMOL/L (11-32) Anti-Nuclear Antibody Screen NEG (NEG) Hepatitis A IgM Antibody NEGATIVE (NEGATIVE) Hepatitis B Surface Antigen NEGATIVE (NEGATIVE) Hepatitis B Core IgM Antibody NEGATIVE (NEGATIVE) Hepatitis C Antibody NEGATIVE (NEGATIVE) Test 01/22/17 01/23/17 01/24/17 18:00 05:24 04:29 Sodium Level 134 MEQ/L 137 MEQ/L 134 MEQ/L (136-145) (136-145) (136-145) White Blood Count 8.3 TH/MM3 8.7 TH/MM3 (4.0-11.0) (4.0-11.0) Red Blood Count 4.04 MIL/MM3 4.24 MIL/MM3 (4.00-5.30) (4.00-5.30) Hemoglobin 12.6 GM/DL 12.8 GM/DL (11.6-15.3) (11.6-15.3) Hematocrit 37.7 % 40.3 % (35.0-46.0) (35.0-46.0) Mean Corpuscular Volume 93.2 FL 94.9 FL (80.0-100.0) (80.0-100.0) Mean Corpuscular Hemoglobin 31.1 PG 30.1 PG (27.0-34.0) (27.0-34.0) Mean Corpuscular Hemoglobin 33.3 % 31.7 % Concent (32.0-36.0) (32.0-36.0) Red Cell Distribution Width 19.6 % 20.1 % (11.6-17.2) (11.6-17.2) Platelet Count 162 TH/MM3 128 TH/MM3 (150-450) (150-450) Mean Platelet Volume 7.9 FL 8.2 FL (7.0-11.0) (7.0-11.0) Neutrophils (%) (Auto) 74.0 % 63.4 % (16.0-70.0) (16.0-70.0) Lymphocytes (%) (Auto) 15.5 % 24.9 % (9.0-44.0) (9.0-44.0) Monocytes (%) (Auto) 9.2 % (0.0-8.0) 10.2 % (0.0-8.0) Eosinophils (%) (Auto) 1.0 % (0.0-4.0) 1.3 % (0.0-4.0) Basophils (%) (Auto) 0.3 % (0.0-2.0) 0.2 % (0.0-2.0) Neutrophils # (Auto) 6.1 TH/MM3 5.5 TH/MM3 (1.8-7.7) (1.8-7.7) Lymphocytes # (Auto) 1.3 TH/MM3 2.2 TH/MM3 (1.0-4.8) (1.0-4.8) Monocytes # (Auto) 0.8 TH/MM3 0.9 TH/MM3 (0-0.9) (0-0.9) Eosinophils # (Auto) 0.1 TH/MM3 0.1 TH/MM3 (0-0.4) (0-0.4) Basophils # (Auto) 0.0 TH/MM3 0.0 TH/MM3 (0-0.2) (0-0.2) CBC Comment AUTO DIFF AUTO DIFF Differential Total Cells 100 100 Counted Neutrophils % (Manual) 68 % (16-70) 55 % (16-70) Band Neutrophils % 16 % (0-6) 8 % (0-6) Lymphocytes % 10 % (9-44) 25 % (9-44) Monocytes % 5 % (0-8) 11 % (0-8) Eosinophils % 1 % (0-4) 1 % (0-4) Neutrophils # (Manual) 7.0 TH/MM3 5.5 TH/MM3 (1.8-7.7) (1.8-7.7) Nucleated Red Blood Cells 2 /100 WBC 3 /100 WBC (0-0) (0-0) Differential Comment FINAL DIFF FINAL DIFF MANUAL MANUAL Platelet Estimate NORMAL LOW (NORMAL) (NORMAL) Platelet Morphology Comment NORMAL NORMAL (NORMAL) (NORMAL) Potassium Level 3.4 MEQ/L 3.9 MEQ/L (3.5-5.1) (3.5-5.1) Chloride Level 94 MEQ/L 94 MEQ/L (98-107) (98-107) Carbon Dioxide Level 34.0 MEQ/L 29.6 MEQ/L (21.0-32.0) (21.0-32.0) Anion Gap 9 MEQ/L (5-15) 10 MEQ/L (5-15) Blood Urea Nitrogen 61 MG/DL (7-18) 65 MG/DL (7-18) Creatinine 1.85 MG/DL 1.77 MG/DL (0.50-1.00) (0.50-1.00) Estimat Glomerular Filtration 33 ML/MIN (>89) 34 ML/MIN (>89) Rate Random Glucose 179 MG/DL 165 MG/DL (74-106) (74-106) Calcium Level 8.7 MG/DL 8.8 MG/DL (8.5-10.1) (8.5-10.1) Phosphorus Level 3.3 MG/DL (2.5-4.9) Magnesium Level 2.2 MG/DL (1.5-2.5) Total Bilirubin 1.2 MG/DL 1.0 MG/DL (0.2-1.0) (0.2-1.0) Aspartate Amino Transf 150 U/L (15-37) 148 U/L (15-37) (AST/SGOT) Alanine Aminotransferase 237 U/L (10-53) 272 U/L (10-53) (ALT/SGPT) Alkaline Phosphatase 104 U/L 140 U/L (45-117) (45-117) Total Protein 6.1 GM/DL 6.5 GM/DL (6.4-8.2) (6.4-8.2) Albumin 2.7 GM/DL 2.5 GM/DL (3.4-5.0) (3.4-5.0) Polychromasia 3.3 % (0.0-1.9) Basophilic Stippling FAINT (NORMAL) Acanthocytes OCC (NORMAL) Hematology Comments F Prothrombin Time 17.5 SEC (9.8-11.6) Prothromb Time International 1.6 RATIO Ratio Direct Bilirubin 0.4 MG/DL (0.0-0.2) Indirect Bilirubin 0.6 MG/DL (0.0-0.8) . Result Diagram: 01/24/17 0429 01/24/17 0429 Imaging Last 72 hours Impressions Upper Extremity Ultrasound 01/24/17 0000 Signed Impressions: Service Date/Time: Tuesday, January 24, 2017 08:53 - CONCLUSION: Normal examination for a patient of this age. Kip Arriaga MD Liver Ultrasound 01/22/17 0000 Signed Impressions: Service Date/Time: Sunday, January 22, 2017 14:51 - CONCLUSION: 1. Dilatation the common bile duct likely reflecting a reservoir following cholecystectomy. This could be correlated clinically and with the patient's laboratory biliary status. 2. Bilateral pleural effusions. Mello Oglesby MD . Assessment and Plan Disease Oriented Problem List: (1) Atrial flutter (2) Cardiomyopathy (3) Cardiac LV ejection fraction 10-20% (4) Acute kidney injury (5) History of CVA (cerebrovascular accident) (6) Elevated troponin (7) Transaminitis (8) Hypertension (9) CHF (congestive heart failure) (10) COPD (chronic obstructive pulmonary disease) (11) Severe sepsis with acute organ dysfunction Symptom Scale: (1) Poor appetite (2) Debility (3) Confusion Pertinent Non-Medical Issues Psychosocial: Patient is single and lives alone in [place]. She has a high school education. 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 Patient had 2 daughters and 1 son; her son had ESRD and is . Spiritual: [employer] sanya Legal: Per [place] statutes, in the absence of written advanced directives healthcare proxy decision-making falls to the children's 2 adult daughters, sIa Ethical issues impacting care: No known ethical issues impacting care. . Important Contacts Lissette Salinas, daughter: [phone] Triny Amor, daughter: [phone] . Prognosis Ms. Salinas is a 71 yo female with a complicated medical history that includes severe cardiomyopathy with EF 20%. Status post CVA with right-sided hemiparesis and aphasia and October,. The patient has experienced an acute decline, hospitalized 5 times in the past 3 months. Patient is deconditioned with ongoing complications. Currently hospitalized with and multi-system organ dysfunction. Prognosis is poor. . Code Status: Alternative Code (ACLS medications only) Plan * ALTERNATE CODE- ACLS medications only * Decision-making: Per [place] statutes, in the absence of written advanced directives healthcare proxy decision-making falls to the patient's 2 adult daughters (Triny and Lissette). * Goals: Goals remain aggressive up to the point of cardiopulmonary resuscitation. CODE STATUS was changed to ALTERNATE CODE- ACLS medications only. * Pacemaker/AICD deactivated 01/22/2017 * Tentative family meeting again tomorrow 01/25/2017 with the patient's 2 daughters to discuss medical treatment goals; family considering readmission to hospice. * Symptom managementstability: Patient has a complex medical history; she has experienced a recent decline as evidenced by 5 hospitalizations in the past 3 months. Patient was transferred to rehabilitation after her most recent hospitalization in 11/2016, and her functional status reportedly improved. Having ongoing setbacks and complications, now hospitalized with sepsis and multiorgan dysfunction. Prognosis is poor. Physical therapy and speech therapy are following. * Symptom managementdecreased appetite: Appetite is improving but remains inadequate per calorie count completed 01/24/2017. Recommendations to continue Glucerna TID. Palliative care discussed artificial nutrition/PEG tube placement with patient and family. Patient repeatedly shakes her head and says "no" to artificial nutrition, but her daughter states she has to have it if necessary. * Palliative care will continue to follow this patient throughout her hospitalization to establish trust, assist with symptom management and clarification of medical treatment goals. Attestation To help prompt me to consider important information that might be impacting today's encounter and assessment, information from prior notes written by myself or my colleagues may have been "brought forward" into today's note. My signature on this note, however, is an attestation that I personally performed the exam, history, and/or decision-making noted today, and, unless otherwise indicated, the interactions with patient, family, and staff as well as the review of records all occurred today. I also attest that the listed assessment and stated plan reflect my best clinical judgment today based on the combination of historical information, prior notes, and today's exam/ interactions. When time spent is documented, it refers only to time spent today by the signer, or if indicated, combined time spent today by collaborating physician/nurse practitioner. . Pita Mccartney Jan 24, 2017 12:06
[2017-01-24] MEDS: SODIUM CHLOR 0.9% 1000 ML INJ 1,000 ML IV SCH (14:00)
--- NOTE | 2017-01-24 14:48 | HHI.CCPN ---
Subjective Remarks/Hospital Course 71-year-old female. Date of admission 01/17/2017. Past medical history includes prior CVA with right-sided weakness, a flutter status ablation 2069, chronic kidney disease stage III sees Dr. Cunningham, coronary artery disease sees [facility] cardiology, hypertension, chronic systolic heart failure ejection fraction 20%, COPD, dyslipidemia and diabetes. In September, patient had prolonged hospitalization for CVA with right-sided hemiparesis and aphasia. She was seen in rehabilitation. And eventually discharged to senior care. One week ago, patient was made hospice per physician. Daughter Triny Amor rescinded and patient was brought to [facility] for further evaluatio CT head negative. CT chest with cardiac megaly, small pleural effusion. No definite elevated troponin, acute kidney injury creatinine 2.7, leukocytosis, lactic acidosis and 9.3. Patient is currently complaining of nausea and vomiting in his throat twice daily. No abdominal pain however. CT abdomen/ pelvis revealed no acute findings. Received 1 L normal saline ED due to hypotension is currently hemodynamically stable. Subjective: 01/18: Patient complains of being hungry this a.m., nausea and vomiting resolved. Ice chips tolerated well. Plan to advance to clear liquid diet. Patient this afternoon slightly lethargic, but easily arousable. ABG obtained rule out CO2 narcosis, Zoloft placed on hold. 01/19: Patient tolerating clear liquid diet with Ensure supplementation. Patient was noted to be tachycardic heart rate in the 120s, metoprolol when necessary being administered. Plan to resume metoprolol at lower dose 12.5 mg, if hemodynamically tolerated. Bacteremia noted gram-negative rods, patient's on Zosyn, leukocytosis resolved. 01/20: Afebrile .The patient is now tolerating a renal diet. Metoprolol PO instituted, the patient continues to be tachycardic. Lactate level slightly elevated 2.3, slightly secondary to underlying cardiac etiology with noted BNP greater than 5000. Patient remains lethargic, noted ammonia level, lactulose instituted. 01/21: Patient with poor PO intake, retaining food in mouth. Formal swallow study this a.m., diet changed to pured. Patient was noted to be more lethargic , ammonia level increasing 58, and patient was noted to be hypoglycemic glucose 38, with transaminitis, GI consulted. Creatinine was noted to be worsening with elevation of potassium. Bacteremia noted to be bacillus, but Vancomycin was discontinued, consideration of carbapenem. Consulted ID for recommendations. 01/22: Yesterday the patient had an episode of ventricular tachycardia with a rate of 160, potassium level was noted to be 5.3. Emergently received sodium bicarbonate, D50 and insulin, Kayexalate, the patient has an indwelling AICD set to defibrillate at rate 171. A sodium bicarbonate infusion was instituted. No defibrillation was required. The patient then converted into atrial fibrillation with RVR, low 100s. Amiodarone was bolused and amiodarone continues to infuse. Heart rate during the night range from 90s to 110. The patient previously had been in hospice care with a DNR, which have been rescinded for this hospitalization. Palliative care was consulted yesterday and extensive discussion with the family resulted in decision of an alternate CODE STATUS with ACLS medications only. AICD was interrogated and turned off. GI was consulted regarding patient's transaminitis,liver US and labs are pending. The patient continues to be oliguric with 650 cc urine output in 24 hours. Nephrology has been consulted for recommendations. 01/23: Per nephrology the patient is not a candidate for dialysis, discussed with Dr. Cunningham. Creatinine improved today, will discontinue sodium bicarbonate infusion, calcium level now within normal limits. ID is following, antibiotics have been discontinued. Cardiology no interventions plan, they have signed off. Extensive of discussion with the family. Palliative is following should plan for transfer to hospice possibly on Tuesday as no further interventions are planned. 01/24: palliative saw patient again. patient's family continues to want aggressive care. Cr only slightly improved, and patient persists in gross volume overload. bumex still on hold per nephrology. patient denies complaints. family asking if we can apply any dressings to bullae. Objective Vital Signs Date Time Temp Pulse Resp B/P Pulse Ox O2 Delivery O2 Flow Rate FiO2 01/24/17 07:54 99 Nasal Cannula 2.00 01/24/17 06:00 126 01/24/17 06:00 20 113/78 01/24/17 04:00 98.1 Intake and Output 01/23/17 01/23/17 01/24/17 08:00 16:00 00:00 Intake Total 560 ml 1162 ml 442 ml Output Total 500 ml 450 ml 250 ml Balance 60 ml 712 ml 192 ml Result Diagram: 01/24/17 0429 01/24/17 0429 Imaging Last Impressions Chest X-Ray 01/17/17 1556 Signed Impressions: Service Date/Time: Tuesday, January 17, 2017 16:07 - CONCLUSION: 1. Left basilar opacity may represent atelectasis, consolidation, and/or pleural effusion. 2. Stable enlargement of the cardiac silhouette within abnormal cardiac shape. Mello Dorman MD Head CT 01/17/17 0000 Signed Impressions: Service Date/Time: Tuesday, January 17, 2017 17:13 - CONCLUSION: Negative for an acute process. Herve Fam MD FACR Chest CT 01/17/17 0000 Signed Impressions: Service Date/Time: Tuesday, January 17, 2017 17:18 - CONCLUSION: Cardiomegaly. Small right effusion. Mild basilar atelectasis. Mello Cameron MD Abdomen/Pelvis CT 01/17/17 0000 Signed Impressions: Service Date/Time: Tuesday, January 17, 2017 17:18 - CONCLUSION: Massive cardiomegaly without pericardial effusion. Minimal failure with small right pleural effusion and trace ascites. There is no gastric distention. Herve Fam MD FACR Objective Remarks Infusions Amiodarone 0.5 mg/hour GENERAL: Elderly female awake and oriented x 3 SKIN: Warm and dry. HEAD: Atraumatic. Normocephalic. EYES: Pupils equal and round. No scleral icterus. No injection or drainage. ENT: No nasal bleeding or discharge. Mucous membranes pink and moist. Uvula midline NECK: Trachea midline. No JVD. CARDIOVASCULAR: Regular rate and irregular rhythm. RESPIRATORY: No accessory muscle use. Clear to auscultation. Breath sounds equal bilaterally. Nasal cannula GASTROINTESTINAL: Abdomen soft, non-tender, nondistended. Hepatic and splenic margins not palpable. MUSCULOSKELETAL: Extremities without clubbing, cyanosis, or edema. No obvious deformities. NEUROLOGICAL: Awake and alert. No obvious cranial nerve deficits. Motor grossly within normal limits. 3/5 muscle strength in the arms and legs. Normal speech. PSYCHIATRIC: Appropriate mood and affect; insight and judgment normal. A/P Assessment and Plan Assessment: 71yF with multiple acute on chronic medical problems, now with oliguric PREMA. though her Cr improves slightly, she continues with all her medical problems, volume overload, pneumonia, heart failure. Still unlikely to recover. at family's request, continuing aggressive care. will consult wound care nurse for recommendations for bullae. I explained to the family that without aggressive diuresis which we are unable to do due to her kidney injury, the bullae will continue to worsen. poor prognosis. continue in ICU for high level care of complex medical problems. 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 Depression Failure to thrive Insomnia Lethargy Hold Zoloft 50 mg by mouth daily for depression secondary to patient's current lethargy Holding Restoril 7.5 mg daily at bedtime as home medication for insomnia Continue Megace 400 mg by mouth daily for failure to thrive CT Brain 01/17 revealed no acute intracranial findings Avoid all sedating type medications, and correction of hypoglycemia Ammonia persistently elevated, continue lactulose CV: Severe sepsis with multisystem organ failure Chronic systolic heart failure ejection fraction 20% History of atrial flutter status post ablation 10/[address] Velazquez Hypertension Dyslipidemia Lactic acidosis is likely cardiac etiology Status post AICD placement-deactivated 01/21 Elevated troponin H/O DE 2-D echo 11/08 revealed EF 20-25%. Global hypokinesis. Akinesis and scarring of the inferior posterior margin. Moderate MR/TR. Mild left atrial dilation. DARLIN 55 mmHg Status post 1 L normal saline in ED. Holding Zocor 40 mg by mouth daily for dyslipidemia. Resume when clinically indicated Holding Bumex 2 mg by mouth twice a day and spironolactone 25 mg at night due to hypotension and acute kidney injury.. 01/20 Lactate 2.3 Echocardiogram 01/18-ejection fraction 2024%. Possible basal posterior and apical kinesis and severe hypokinesis of all other segments Dr. Olson, applications packager- signed off 01/21 Continue aspirin 81 mg by mouth daily 01/20 BNP > 5000 01/21 episode of V. tach was self resolution. A. fib RVR amiodarone infusion initiated, will restart Metoprolol when clinically improvement in BP. 01/24 Start amiodarone PO in anticipation of transfer Resp: History COPD Small right pleural effusion Nasal cannula to maintain saturations greater than equal to 92%, Incentive spirometry while awake Duo nebs every 6 hours and albuterol every 2 hours when necessary dyspnea CT chest 01/08 revealed massive cardiomegaly, small right pleural effusion 01/18 Metabolic acidosis was noted patient was placed on bicarbonate infusion, anion gap improved, discontinued on 01/19, restarted 01/21 01/23 bicarbonate level 34, discontinue sodium bicarbonate infusion GI: Nausea/vomiting-resolved Transaminitis 1800 ADA diet Protonix for GI prophylaxis PeriColace for bowel regimen On Megace for anorexia. CT abdomen/pelvis revealed no signs of bowel obstruction. 01/21 liver enzymes continue to increase, with severe hypoglycemia , shock liver ? GI consulted 01/22 F/U liver US, Hepatitis panel : Cavanaugh catheter for accurate I's and O's in a critically ill patient Endo: Diabetes mellitus Hypoglycemia Sliding-scale insulin with Accu-Cheks every 4 hours to maintain euglycemia/low regimen Holding glipizide 10 mg before meals TSH and cortisol WNL Renal: Acute kidney injury in the setting of chronic kidney disease Baseline creatinine around 1.7 Avoid nephrotoxic drugs Accurate I's and O's Monitor urine output Check urine electrolytes and eosinophils No hydronephrosis on CT abdomen/pelvis Dr. Cunningham is her planisher 01/20 Restarted PO Bumex 1 mg twice a day (home medication), discontinued with creatinine elevation 1.62->2.39 (vancomycin discontinued) 01/22 Nephrology consulted, 01/22 given Bumex 1 mg x1 . Noted 5 kg wt gain since admission. Heme: Leukocytosis-resolved Elevated PT/INR and PTT Monitor CBC daily. Follow trends Holding Eliquis 5 mg BID, INR 1.3 01/17 fibrinogen WNL ID: Severe sepsis source pneumonia aspiration? UTI? Day 6 Zosyn, vancomycin discontinued 08/26 worsening creatinine 01/21 ID following- Dr. Johnson, all antibiotics discontinued 01/22 per ID Pertinent cultures - Blood cultures 2 01/17 -Bacillus - Urine culture 01/17 - pending Sputum culture-pending influenza A & B-negative FEN: Hyponatremia Hyperkalemia-resolved Hyper-magnesium Hyperphosphatemia 01/21 IVF D5NS @42cc/hr Received hyperkalemia protocol in ED. 01/23 sodium bicarbonate discontinued MSK: PT evaluate and treat 01/21 Bilateral upper arm edema-ultrasound bilateral lower extremities negative Access - Utilize peripheral IV. Change PIV's 01/21 Central line if indicated Prophylaxis - GI -Protonix - DVT - SCD/holding pharmacological prophylaxis with eliquis is due to acute kidney injury creatinine greater than 1.5 Family discussions: 01/22 Yesterday after V. tach episode, family discussion with palliative care medicine. It was decided alternate CODE STATUS be initiated, ACLS drugs only. AICD was interrogated and deactivated. Possible plan for transfer back to hospice, will consult nephrology for any additional recommendations and further discussion with palliative medicine regarding disposition. 01/23: Further interventions planned. Consult with palliative care medicine regarding transition back to hospice care on Tuesday. Patient is not a candidate for dialysis per nephrology, Dr. Cunningham, no further interventions planned. 01/24: palliative met and family continues to want aggressive medical care. Dale Lea MD Jan 24, 2017 14:48
--- NOTE | 2017-01-24 15:59 | HHI.NPPN ---
Subjective Additional Remarks awake today, seen with family at bedside. Objective Data Data 01/23/17 01/24/17 19:00 07:00 Intake Total 1162 ml 832 ml Output Total 450 ml 450 ml Balance 712 ml 382 ml Intake Oral 480 ml 240 ml IV Total 682 ml 592 ml Output Urine Total 450 ml 450 ml # Bowel Movements 0 0 Vital Signs Date Time Temp Pulse Resp B/P Pulse Ox O2 Delivery O2 Flow Rate FiO2 01/24/17 07:54 99 Nasal Cannula 2.00 01/24/17 06:00 126 01/24/17 06:00 126 20 113/78 100 01/24/17 05:00 126 01/24/17 05:00 126 17 113/78 100 01/24/17 04:00 98.1 126 22 100/78 100 01/24/17 04:00 126 01/24/17 02:00 124 27 104/81 100 Arterial Line 01/24/17 02:00 124 01/24/17 01:00 124 01/24/17 01:00 124 29 106/80 100 Arterial Line 01/24/17 00:00 98.1 123 21 107/82 100 Arterial Line 01/24/17 00:00 123 01/23/17 23:00 124 01/23/17 23:00 124 22 105/74 100 Arterial Line 01/23/17 22:00 123 01/23/17 22:00 123 25 114/75 100 Arterial Line 01/23/17 21:00 118 31 126/59 100 108/76 01/23/17 21:00 118 01/23/17 20:00 114 01/23/17 20:00 98.0 114 17 95/78 100 102/74 01/23/17 19:45 100 Nasal Cannula 2.00 01/23/17 18:00 112 01/23/17 16:00 119 01/23/17 16:00 97.7 120 20 95/74 100 93/87 -: 01/24/17 0429 01/24/17 0429 Physical Exam General Appearance: No Acute Distress, Comfortable Throat Throat Exam: Oral Mucosa [place] & Moist Neck Neck Exam: Neck Supple Pulmonary Resp Exam: Decreased Bases, Diminished Breath Sounds Cardiology CV Exam: Arrhythmia Gastrointestinal/Abdomen GI Exam: Soft, Non-Tender Musculoskeletal MS Exam: Joints Intact Integumentary Skin Exam: Warm, Dry, Intact Extremeties Extremities Exam: No Edema Neurologic Neuro Exam: Awake Assessment/Plan Problem List: (1) Acute kidney injury Plan: PREMA on CKD 3: The patient follows up with Dr. Misael Cunningham as an outpatient. Her baseline creatinine has been near 1.6-1.8. PREMA after episode of V-tach 01/21, with possible ATN secondary to hypoperfusion during episodes of V-tach. In addition, the patient was initially treated with vancomycin and Zosyn for pneumonia at time of her presentation here. There may be some ATN secondary to this, vancomycin has been held at this point. Renal function has improved with gentle IVFs,restart Bumex. The patient had been on Bumex at home with 1 mg p.o. b.i.d. Bumex dosing for CHF. (2) CHF (congestive heart failure) Plan: The patient has a 20% ejection fraction, is to continue medical management. Continue to monitor. restart bumex as renal function further stabilizes. (3) Metabolic acidosis Plan: Improved, will stop IVFs. (4) Failure to thrive in adult Plan: Continue to follow goals of care with family (5) V-tach Plan: Resolved now, continue to monitor (6) Afib Plan: with Thad Wilkins MD Jan 24, 2017 15:59
[2017-01-25] VITALS (18 sets, daily range): BP systolic 94–126; BP diastolic 65–81; PULSE 98–120; RESP 17–26; TEMP 97.1–99.2; O2SAT 96–100
[2017-01-25] MEDS: ACETAMINOPHEN/HYDROcodone 325 MG/5 MG TAB PO PRN ×2 (00:24→23:31)
[2017-01-25] MEDS: CHLORHEXIDINE GLUCONATE 2 % 1 PACK (2 CLOTHS) TOP SCH (04:00)
[2017-01-25 05:33] LABS: HEMATOCRIT 40.1 % (35.0-46.0); MEAN CORPUSCULAR HEMOGLOBIN 30.6 PG (27.0-34.0); MEAN CORPUSCULAR HGB CONC 32.5 % (32.0-36.0); RED BLOOD COUNT 4.27 MIL/MM3 (4.00-5.30); WHITE BLOOD COUNT 8.3 TH/MM3 (4.0-11.0)
[2017-01-25 05:57] LABS: POTASSIUM 4.4 MEQ/L (3.5-5.1)
[2017-01-25 06:44] LABS: REVIEW FLAG FINAL
[2017-01-25 06:45] LABS: PLATELET COUNT 113 TH/MM3 (150-450)
[2017-01-25] MEDS: LACTULOSE SYRUP 20 GM/30 ML CUP PO SCH (07:21)
[2017-01-25] MEDS: MEGESTROL ACETATE SUSP 400 MG/10 ML CUP PO SCH ×2 (08:04→17:07)
[2017-01-25] MEDS: AMIODARONE 200 MG TAB PO SCH ×2 (08:04→23:31)
[2017-01-25] MEDS: PANTOPRAZOLE SODIUM 40 MG VIAL IV SCH (08:04)
[2017-01-25] MEDS: MULTIVITAMIN TAB PO SCH (08:04)
[2017-01-25] MEDS: ASPIRIN 81 MG CHEW TAB CHEW SCH (08:04)
[2017-01-25] MEDS: DOCUSATE SODIUM 50 MG/SENNA 8.6 MG TAB PO SCH ×2 (08:04→21:00)
[2017-01-25] MEDS: ARTIFICIAL TEARS OPTH SOLN 15 ML BTL EACH EYE SCH ×3 (08:05→17:07)
[2017-01-25] MEDS: SODIUM CHLORIDE 0.9% FLUSH 10 ML FLUSH IV FLUSH SCH ×2 (08:05→23:31)
--- NOTE | 2017-01-25 10:56 | HHI.CCPN ---
Subjective Remarks/Hospital Course 71-year-old female. Date of admission 01/17/2017. Past medical history includes prior CVA with right-sided weakness, a flutter status ablation 2069, chronic kidney disease stage III sees Dr. Cunningham, coronary artery disease sees [facility] cardiology, hypertension, chronic systolic heart failure ejection fraction 20%, COPD, dyslipidemia and diabetes. In September, patient had prolonged hospitalization for CVA with right-sided hemiparesis and aphasia. She was seen in rehabilitation. And eventually discharged to senior care. One week ago, patient was made hospice per physician. Daughter Triny Amor rescinded and patient was brought to [facility] for further evaluatio CT head negative. CT chest with cardiac megaly, small pleural effusion. No definite elevated troponin, acute kidney injury creatinine 2.7, leukocytosis, lactic acidosis and 9.3. Patient is currently complaining of nausea and vomiting in his throat twice daily. No abdominal pain however. CT abdomen/ pelvis revealed no acute findings. Received 1 L normal saline ED due to hypotension is currently hemodynamically stable. Subjective: 01/18: Patient complains of being hungry this a.m., nausea and vomiting resolved. Ice chips tolerated well. Plan to advance to clear liquid diet. Patient this afternoon slightly lethargic, but easily arousable. ABG obtained rule out CO2 narcosis, Zoloft placed on hold. 01/19: Patient tolerating clear liquid diet with Ensure supplementation. Patient was noted to be tachycardic heart rate in the 120s, metoprolol when necessary being administered. Plan to resume metoprolol at lower dose 12.5 mg, if hemodynamically tolerated. Bacteremia noted gram-negative rods, patient's on Zosyn, leukocytosis resolved. 01/20: Afebrile .The patient is now tolerating a renal diet. Metoprolol PO instituted, the patient continues to be tachycardic. Lactate level slightly elevated 2.3, slightly secondary to underlying cardiac etiology with noted BNP greater than 5000. Patient remains lethargic, noted ammonia level, lactulose instituted. 01/21: Patient with poor PO intake, retaining food in mouth. Formal swallow study this a.m., diet changed to pured. Patient was noted to be more lethargic , ammonia level increasing 58, and patient was noted to be hypoglycemic glucose 38, with transaminitis, GI consulted. Creatinine was noted to be worsening with elevation of potassium. Bacteremia noted to be bacillus, but Vancomycin was discontinued, consideration of carbapenem. Consulted ID for recommendations. 01/22: Yesterday the patient had an episode of ventricular tachycardia with a rate of 160, potassium level was noted to be 5.3. Emergently received sodium bicarbonate, D50 and insulin, Kayexalate, the patient has an indwelling AICD set to defibrillate at rate 171. A sodium bicarbonate infusion was instituted. No defibrillation was required. The patient then converted into atrial fibrillation with RVR, low 100s. Amiodarone was bolused and amiodarone continues to infuse. Heart rate during the night range from 90s to 110. The patient previously had been in hospice care with a DNR, which have been rescinded for this hospitalization. Palliative care was consulted yesterday and extensive discussion with the family resulted in decision of an alternate CODE STATUS with ACLS medications only. AICD was interrogated and turned off. GI was consulted regarding patient's transaminitis,liver US and labs are pending. The patient continues to be oliguric with 650 cc urine output in 24 hours. Nephrology has been consulted for recommendations. 01/23: Per nephrology the patient is not a candidate for dialysis, discussed with Dr. Cunningham. Creatinine improved today, will discontinue sodium bicarbonate infusion, calcium level now within normal limits. ID is following, antibiotics have been discontinued. Cardiology no interventions plan, they have signed off. Extensive of discussion with the family. Palliative is following should plan for transfer to hospice possibly on Tuesday as no further interventions are planned. 01/24: palliative saw patient again. patient's family continues to want aggressive care. Cr only slightly improved, and patient persists in gross volume overload. bumex still on hold per nephrology. patient denies complaints. family asking if we can apply any dressings to bullae. 01/25: remains stable. Cr worse today. bumex restarted per nephrology and mivf stopped. nephrology guiding volume management given worsening PREMA. palliative talking with family again today. Objective Vital Signs Date Time Temp Pulse Resp B/P Pulse Ox O2 Delivery O2 Flow Rate FiO2 01/25/17 10:00 120 01/25/17 08:00 97.6 24 103/75 100 01/24/17 07:54 Nasal Cannula 2.00 Intake and Output 01/24/17 01/24/17 01/25/17 08:00 16:00 00:00 Intake Total 390 ml 1264 ml 150 ml Output Total 200 ml 175 ml 100 ml Balance 190 ml 1089 ml 50 ml Result Diagram: 01/25/17 0426 01/25/17 0426 Imaging Last Impressions Chest X-Ray 01/17/17 1556 Signed Impressions: Service Date/Time: Tuesday, January 17, 2017 16:07 - CONCLUSION: 1. Left basilar opacity may represent atelectasis, consolidation, and/or pleural effusion. 2. Stable enlargement of the cardiac silhouette within abnormal cardiac shape. Mello Dorman MD Head CT 01/17/17 0000 Signed Impressions: Service Date/Time: Tuesday, January 17, 2017 17:13 - CONCLUSION: Negative for an acute process. Herve Fam MD FACR Chest CT 01/17/17 0000 Signed Impressions: Service Date/Time: Tuesday, January 17, 2017 17:18 - CONCLUSION: Cardiomegaly. Small right effusion. Mild basilar atelectasis. Mello Cameron MD Abdomen/Pelvis CT 01/17/17 0000 Signed Impressions: Service Date/Time: Tuesday, January 17, 2017 17:18 - CONCLUSION: Massive cardiomegaly without pericardial effusion. Minimal failure with small right pleural effusion and trace ascites. There is no gastric distention. Herve Fam MD FACR Objective Remarks GENERAL: Elderly female awake and oriented x 3 SKIN: Warm and dry. HEAD: Atraumatic. Normocephalic. EYES: Pupils equal and round. No scleral icterus. No injection or drainage. ENT: No nasal bleeding or discharge. Mucous membranes pink and moist. NECK: Trachea midline. No JVD. CARDIOVASCULAR: tachycardic rate and irregular rhythm. RESPIRATORY: mildly labored this morning. Nasal cannula GASTROINTESTINAL: Abdomen soft, non-tender, nondistended. MUSCULOSKELETAL: significant edema and anasarca, including serous bullae. NEUROLOGICAL: Awake and alert. No obvious cranial nerve deficits. Motor grossly within normal limits. A/P Assessment and Plan Assessment: 71yF with multiple acute on chronic medical problems, now with worsening oliguric PREMA. Cr worsening today with restarting bumex and d/c fluids , but clinically appears volume overloaded, she continues with all her medical problems, volume overload, pneumonia, heart failure. Still unlikely to recover. at family's request, continuing aggressive care. poor prognosis. however, no indication for ICU admission at this time, and she can be equally well taken care of out of ICU. 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 Depression Failure to thrive Insomnia Lethargy Hold Zoloft 50 mg by mouth daily for depression secondary to patient's current lethargy Holding Restoril 7.5 mg daily at bedtime as home medication for insomnia Continue Megace 400 mg by mouth daily for failure to thrive CT Brain 01/17 revealed no acute intracranial findings Avoid all sedating type medications, and correction of hypoglycemia Ammonia persistently elevated, continue lactulose CV: Severe sepsis with multisystem organ failure Chronic systolic heart failure ejection fraction 20% History of atrial flutter status post ablation 10/[address] Velazquez Hypertension Dyslipidemia Lactic acidosis is likely cardiac etiology Status post AICD placement-deactivated 01/21 Elevated troponin H/O ID 2-D echo 11/08 revealed EF 20-25%. Global hypokinesis. Akinesis and scarring of the inferior posterior margin. Moderate MR/TR. Mild left atrial dilation. DARLIN 55 mmHg Status post 1 L normal saline in ED. Holding Zocor 40 mg by mouth daily for dyslipidemia. Resume when clinically indicated Holding Bumex 2 mg by mouth twice a day and spironolactone 25 mg at night due to hypotension and acute kidney injury.. 01/20 Lactate 2.3 Echocardiogram 01/18-ejection fraction 2025%. Possible basal posterior and apical kinesis and severe hypokinesis of all other segments Dr. Olson, dollyman- signed off 01/21 Continue aspirin 81 mg by mouth daily 01/20 BNP > 5000 01/21 episode of V. tach was self resolution. A. fib RVR amiodarone infusion initiated, will restart Metoprolol when clinically improvement in BP. 01/24 Start amiodarone PO in anticipation of transfer Resp: History COPD Small right pleural effusion Nasal cannula to maintain saturations greater than equal to 92%, Incentive spirometry while awake Duo nebs every 6 hours and albuterol every 2 hours when necessary dyspnea CT chest 01/08 revealed massive cardiomegaly, small right pleural effusion 01/18 Metabolic acidosis was noted patient was placed on bicarbonate infusion, anion gap improved, discontinued on 01/19, restarted 01/21 01/23 bicarbonate level 34, discontinue sodium bicarbonate infusion GI: Nausea/vomiting-resolved Transaminitis 1800 ADA diet Protonix for GI prophylaxis PeriColace for bowel regimen On Megace for anorexia. CT abdomen/pelvis revealed no signs of bowel obstruction. 01/21 liver enzymes continue to increase, with severe hypoglycemia , shock liver ? GI consulted 01/22 F/U liver US, Hepatitis panel : Cavanaugh catheter for accurate I's and O's in a critically ill patient Endo: Diabetes mellitus Hypoglycemia Sliding-scale insulin with Accu-Cheks every 4 hours to maintain euglycemia/low regimen Holding glipizide 10 mg before meals TSH and cortisol WNL Renal: Acute kidney injury in the setting of chronic kidney disease Baseline creatinine around 1.7 Avoid nephrotoxic drugs Accurate I's and O's Monitor urine output Check urine electrolytes and eosinophils No hydronephrosis on CT abdomen/pelvis Dr. Cunningham is her [employer] 01/20 Restarted PO Bumex 1 mg twice a day (home medication), discontinued with creatinine elevation 1.62->2.39 (vancomycin discontinued) 01/22 Nephrology consulted, 01/22 given Bumex 1 mg x1 . Noted 5 kg wt gain since admission. 01/24: restarted bumex per nephrology. Heme: Leukocytosis-resolved Elevated PT/INR and PTT Monitor CBC daily. Follow trends Holding Eliquis 5 mg BID, INR 1.3 01/17 fibrinogen WNL ID: Severe sepsis source pneumonia aspiration? UTI? Day 6 Zosyn, vancomycin discontinued 08/26 worsening creatinine 01/21 ID following- Dr. Johnson, all antibiotics discontinued 01/22 per ID Pertinent cultures - Blood cultures 2 01/17 -Bacillus - Urine culture 01/17 - pending Sputum culture-pending influenza A & B-negative FEN: Hyponatremia Hyperkalemia-resolved Hyper-magnesium Hyperphosphatemia 01/21 IVF D5NS @42cc/hr Received hyperkalemia protocol in ED. 01/23 sodium bicarbonate discontinued MSK: PT evaluate and treat 01/21 Bilateral upper arm edema-ultrasound bilateral lower extremities negative Access - Utilize peripheral IV. Change PIV's 01/21 Central line if indicated Prophylaxis - GI -Protonix - DVT - SCD/holding pharmacological prophylaxis with eliquis is due to acute kidney injury creatinine greater than 1.5 Family discussions: 01/22 Yesterday after V. tach episode, family discussion with palliative care medicine. It was decided alternate CODE STATUS be initiated, ACLS drugs only. AICD was interrogated and deactivated. Possible plan for transfer back to hospice, will consult nephrology for any additional recommendations and further discussion with palliative medicine regarding disposition. 01/23: Further interventions planned. Consult with palliative care medicine regarding transition back to hospice care on Tuesday. Patient is not a candidate for dialysis per nephrology, Dr. Cunningham, no further interventions planned. 01/24: palliative met and family continues to want aggressive medical care. Dale Lea MD Jan 25, 2017 10:55
--- NOTE | 2017-01-25 10:58 | HHI.GIFU ---
Subjective Remarks Resting in bed. No n/v. No abdominal pain. Objective Vitals I&O Vital Signs Date Time Temp Pulse Resp B/P Pulse Ox O2 Delivery O2 Flow Rate FiO2 01/25/17 10:00 120 01/25/17 09:00 118 01/25/17 08:00 120 01/25/17 08:00 97.6 120 24 103/75 100 01/25/17 07:00 120 18 103/72 100 01/25/17 07:00 120 01/25/17 06:00 116 01/25/17 04:00 120 01/25/17 04:00 99.2 120 26 104/74 96 01/25/17 01:30 18 01/25/17 00:00 99.1 117 18 117/75 98 01/24/17 22:00 117 01/24/17 20:00 120 01/24/17 20:00 99.2 120 18 109/74 94 01/24/17 18:00 118 25 113/73 100 01/24/17 18:00 118 01/24/17 17:00 121 28 100/76 100 01/24/17 17:00 121 01/24/17 16:00 98.2 123 27 113/76 100 01/24/17 16:00 123 01/24/17 15:00 127 01/24/17 15:00 127 24 101/79 100 01/24/17 14:00 120 01/24/17 14:00 120 25 103/70 100 01/24/17 13:00 117 01/24/17 13:00 117 28 104/77 100 01/24/17 12:00 119 01/24/17 12:00 98.2 119 25 112/77 100 01/24/17 11:00 116 01/24/17 11:00 116 24 110/81 100 I/O 01/24/17 01/24/17 01/24/17 01/25/17 01/25/17 01/25/17 07:00 15:00 23:00 07:00 15:00 23:00 Intake Total 390 ml 1264 ml 150 ml 50 ml Output Total 200 ml 175 ml 100 ml 200 ml Balance 190 ml 1089 ml 50 ml -150 ml Intake Oral 500 ml 150 ml 50 ml Oral Supplement 240 ml IV Total 390 ml 524 ml Output Urine Total 200 ml 175 ml 100 ml 200 ml # Bowel Movements 0 0 1 Laboratory Laboratory Tests Test 01/25/17 04:26 White Blood Count 8.3 Red Blood Count 4.27 Hemoglobin 13.1 Hematocrit 40.1 Mean Corpuscular Volume 94.0 Mean Corpuscular Hemoglobin 30.6 Mean Corpuscular Hemoglobin 32.5 Concent Red Cell Distribution Width 21.0 Platelet Count 113 Mean Platelet Volume 8.3 Sodium Level 133 Potassium Level 4.4 Chloride Level 93 Carbon Dioxide Level 30.0 Anion Gap 10 Blood Urea Nitrogen 75 Creatinine 2.05 Estimat Glomerular Filtration 29 Rate Random Glucose 158 Calcium Level 8.7 Imaging Last Impressions Upper Extremity Ultrasound 01/24/17 0000 Signed Impressions: Service Date/Time: Tuesday, January 24, 2017 08:53 - CONCLUSION: Normal examination for a patient of this age. Kip Arriaga MD Liver Ultrasound 01/22/17 0000 Signed Impressions: Service Date/Time: Sunday, January 22, 2017 14:51 - CONCLUSION: 1. Dilatation the common bile duct likely reflecting a reservoir following cholecystectomy. This could be correlated clinically and with the patient's laboratory biliary status. 2. Bilateral pleural effusions. Mello Oglesby MD Chest X-Ray 01/17/17 1556 Signed Impressions: Service Date/Time: Tuesday, January 17, 2017 16:07 - CONCLUSION: 1. Left basilar opacity may represent atelectasis, consolidation, and/or pleural effusion. 2. Stable enlargement of the cardiac silhouette within abnormal cardiac shape. Mello Dorman MD Head CT 01/17/17 0000 Signed Impressions: Service Date/Time: Tuesday, January 17, 2017 17:13 - CONCLUSION: Negative for an acute process. Herve Fam MD FACR Chest CT 01/17/17 0000 Signed Impressions: Service Date/Time: Tuesday, January 17, 2017 17:18 - CONCLUSION: Cardiomegaly. Small right effusion. Mild basilar atelectasis. Mello Cameron MD Abdomen/Pelvis CT 01/17/17 0000 Signed Impressions: Service Date/Time: Tuesday, January 17, 2017 17:18 - CONCLUSION: Massive cardiomegaly without pericardial effusion. Minimal failure with small right pleural effusion and trace ascites. There is no gastric distention. Herve Fam MD FACR Physical Exam HEENT: Normocephalic, normocephalic CHEST: CTA, diminished CARDIAC: Irregular- HR 118 ABDOMEN: +BS, soft, nondistended, nontender; no hepatosplenomegaly EXTREMITIES: No clubbing, cyanosis, or edema. STORE PLANNER: Pt is lethargic Assessment and Plan Plan ASSESSMENT: - Elevated transaminases. Per daughter, no prior history of liver disease in patient or other family members and denies any history of hepatitis, cirrhosis, or alcohol use. S/P cholecystectomy. Her daughter reports that she did have a bout of nausea and vomiting the night before this hospitalization, but has not had any further episodes. The patient denies any abdominal pain. Abdomen/Pelvis CT (01/17/17)----> Massive cardiomegaly without pericardial effusion. Minimal failure with small right pleural effusion and trace ascites. There is no gastric distention. Liver Ultrasound (01/22/17)----> 1. Dilatation the common bile duct likely reflecting a reservoir following cholecystectomy. This could be correlated clinically and with the patient's laboratory biliary status. 2. Bilateral pleural effusions. Hepatitis profile negative. KERI negative. ASMA/AMA pending. LFT T. Bili 1.0, AST 148, ALT 272, Alk Phosph 140. This is most likely multifactorial, secondary to hepatic congestion, sepsis. Stable. - Poor nutrition. S/P Calorie count (01/24)-----> Inadequate po intake to meet nutritional needs. Glucerna TID and if no improvement, then consider TF. - Abdominal distention. Resolved. CT as above. + BM's. - Sepsis/Bacteremia. Cx with bacillus species, not anthracis. WBC 8.3. Off abx. ID following. - CAD, Chronic systolic heart failure with EF, Hx aflutter (S/P ablation), elevated troponin. Pt had run of Vtach on 01/21. CCM/Cardiology following. A sodium bicarbonate infusion was given. No defibrillation required. The patient then converted into atrial fibrillation with RVR. She was started on Amiodarone. HR stable. AICD was interrogated and turned off. - PREMA. Creat 2.05 - HTN, Hyperlipidemia, COPD, Small right pleural effusion, DM per primary - Hx embolic CVA/left basal ganglia. s/p angiogram and was found to have a large clot at the ICA, M1 segment, s/p embolectomy with bahai of antegrade flow on 10/25/16 PLAN: - Cardiac diet - Glucerna TID - Record meal percentages - If no improvement, consider TF to meet nutritional needs - Await Hepatitis profile - Await KERI, ASMA, AMA - Monitor LFTs - Avoid hepatotoxic meds - Palliative care was consulted and extensive discussion with the family resulted in decision of an alternate CODE STATUS with ACLS medications only. - Supportive care - Further recommendations to follow based on results of above - Pt was seen and examined by myself and Dr. José and this note was written on his behalf Hannah Duque Jan 25, 2017 10:58
[2017-01-25] MEDS: INSULIN NovoLIN REGULAR SUPPLEMENTAL SCALE SQ SCH ×4 (11:15→23:40)
--- NOTE | 2017-01-25 13:17 | HHI.NPPN ---
Subjective Additional Remarks awake today, seen Objective Data Data 01/24/17 01/25/17 19:00 07:00 Intake Total 1264 ml 200 ml Output Total 175 ml 300 ml Balance 1089 ml -100 ml Intake Oral 500 ml 200 ml Oral Supplement 240 ml IV Total 524 ml Output Urine Total 175 ml 300 ml # Bowel Movements 0 1 Vital Signs Date Time Temp Pulse Resp B/P Pulse Ox O2 Delivery O2 Flow Rate FiO2 01/25/17 12:00 98.1 110 22 113/68 100 01/25/17 12:00 110 01/25/17 11:00 114 01/25/17 11:00 114 23 100 01/25/17 10:00 120 01/25/17 10:00 120 17 100 01/25/17 09:00 118 17 102/72 100 01/25/17 09:00 118 01/25/17 08:00 120 01/25/17 08:00 97.6 120 24 103/75 100 01/25/17 07:00 120 18 103/72 100 01/25/17 07:00 120 01/25/17 06:00 116 01/25/17 04:00 120 01/25/17 04:00 99.2 120 26 104/74 96 01/25/17 01:30 18 01/25/17 00:00 99.1 117 18 117/75 98 01/24/17 22:00 117 01/24/17 20:00 120 01/24/17 20:00 99.2 120 18 109/74 94 01/24/17 18:00 118 25 113/73 100 01/24/17 18:00 118 01/24/17 17:00 121 28 100/76 100 01/24/17 17:00 121 01/24/17 16:00 98.2 123 27 113/76 100 01/24/17 16:00 123 01/24/17 15:00 127 01/24/17 15:00 127 24 101/79 100 01/24/17 14:00 120 01/24/17 14:00 120 25 103/70 100 -: 01/25/17 0426 01/25/17 0426 Physical Exam General Appearance: No Acute Distress, Comfortable Throat Throat Exam: Oral Mucosa Archer & Moist Neck Neck Exam: Neck Supple Pulmonary Resp Exam: Decreased Bases, Diminished Breath Sounds Cardiology CV Exam: Arrhythmia Gastrointestinal/Abdomen GI Exam: Soft, Non-Tender Musculoskeletal MS Exam: Joints Intact Integumentary Skin Exam: Warm, Dry, Intact Extremeties Extremities Exam: No Edema Neurologic Neuro Exam: Awake Assessment/Plan Problem List: (1) Acute kidney injury Plan: PREMA on CKD 3: The patient follows up with Dr. Misael Cunningham as an outpatient. Her baseline creatinine has been near 1.6-1.8. PREMA after episode of V-tach 01/21, with possible ATN secondary to hypoperfusion during episodes of V-tach. In addition, the patient was initially treated with vancomycin and Zosyn for pneumonia at time of her presentation here. There may be some ATN secondary to this, vancomycin has been held at this point. Renal function has cardiorenal syndrome,restart Bumex. Bumex dosing for CHF at 2 mg bid. EF 20-25% Weight increased dr. England to follow (2) CHF (congestive heart failure) Plan: The patient has a 20% ejection fraction, is to continue medical management. Continue to monitor. restarted bumex as renal function worse with edema upper extremities. (3) Metabolic acidosis Plan: Improved, will stop IVFs. (4) Failure to thrive in adult Plan: Continue to follow goals of care with family (5) V-tach Plan: Resolved now, continue to monitor (6) Afib Plan: with Thad Wilkins MD Jan 25, 2017 13:17
[2017-01-25] MEDS: BUMETANIDE 1 MG TAB PO SCH (13:32)
--- NOTE | 2017-01-25 15:37 | HHI.HCPN ---
Reason for visit a. To assist with evaluation and management of symptoms including: Confusion , debility, poor appetite b. To assist medical decision maker(s) with: better understanding of current medical conditions; weighing benefits/burdens of medical treatment options; making medical treatment decisions. . Subjective/Interval History Ms. Salinas is a 71 year old female with a history of atrial flutter, history of CVA in 10/2016, hypertension, HLD, COPD, DM, HTN, CHF (EF 2025%), cardiomyopathy, CKD and CAD. Status post episode of V. tach on January 21, 2017 with possible ATN secondary to hypoperfusion with worsening renal function today. BUN: 75, creatinine 2.05, GFR 29. Baseline creatinine near 1.61.8. Nephrology is following; Dr. Quiroz saw the patient today. Bumex restarted. Patient remains significantly weak; falling asleep during visit. Appetite remains poor. Patient participating minimally in physical therapy. Speech therapy and physical therapy are following. OT consult. Palliative was planning to meet with patient's 2 daughters today, but the meeting was rescheduled 08/26January 25. Tentative plan to meet with family tomorrow. Patient's daughter (Triny) expressing ongoing goal to take her mother back to [place]. However, she is open to considering hospice with placement at [facility]. . Advance Directives Advance Directive Specifics Documented care wishes: Patient's family states the patient completed her "5 wishes", but it cannot be found at this time. No living will was completed. . Objective Vital Signs Date Time Temp Pulse Resp B/P Pulse Ox O2 Delivery O2 Flow Rate FiO2 01/25/17 12:00 98.1 110 22 113/68 100 01/25/17 12:00 110 01/25/17 11:00 114 01/25/17 11:00 114 23 100 01/25/17 10:00 120 01/25/17 10:00 120 17 100 01/25/17 09:00 118 17 102/72 100 01/25/17 09:00 118 01/25/17 08:00 120 01/25/17 08:00 97.6 120 24 103/75 100 01/25/17 07:00 120 18 103/72 100 01/25/17 07:00 120 01/25/17 06:00 116 01/25/17 04:00 120 01/25/17 04:00 99.2 120 26 104/74 96 01/25/17 01:30 18 01/25/17 00:00 99.1 117 18 117/75 98 01/24/17 22:00 117 01/24/17 20:00 120 01/24/17 20:00 99.2 120 18 109/74 94 01/24/17 18:00 118 25 113/73 100 01/24/17 18:00 118 01/24/17 17:00 121 28 100/76 100 01/24/17 17:00 121 01/24/17 16:00 98.2 123 27 113/76 100 01/24/17 16:00 123 Intake & Output 01/25/17 01/25/17 07:00 19:00 Intake Total 200 ml Output Total 300 ml Balance -100 ml Intake Oral 200 ml Output Urine Total 300 ml # Bowel Movements 1 . Physical Exam CONSTITUTIONAL/GENERAL: This is a frail, elderly female patient who is critically ill with multiple organ dysfunction TUBES/LINES/DRAINS: PIV x 3, SCD, Cavanaugh, nasal cannula SKIN: No jaundice, rashes, or lesions. Ecchymoses on upper extremities. No wounds seen anteriorly. Skin temperature appropriate. Not diaphoretic. HEAD: Atraumatic. Normocephalic. EYES: Pupils equal and round and reactive. No scleral icterus. No injection or drainage. Fundi not examined. ENT: Hearing grossly normal. NECK: Trachea midline. Supple, nontender. No palpable thyroid enlargement or nodularity. CARDIOVASCULAR: Irregularly irregular. No JVD. RESPIRATORY/CHEST: Symmetric, unlabored respirations. Breath sounds diminished bilaterally. On nasal cannula GASTROINTESTINAL: Abdomen soft, non-tender, nondistended. Bowel sounds present. GENITOURINARY: Without palpable bladder distension. Cavanaugh catheter in place. MUSCULOSKELETAL: Extremities without clubbing, cyanosis, or edema. Muscle wasting in bilateral lower extremities. LYMPHATICS: No palpable cervical or supraclavicular adenopathy. NEUROLOGICAL: Lethargy. Patient responds to some simple questions, does not follow commands. PSYCHIATRIC: No obvious anxiety/depression. No apparent hallucinations or other psychotic thought process. . Diagnostic Tests Laboratory Laboratory Tests Test 7/1/17 7/2/17 7/3/17 7/4/17 18:00 05:24 04:29 04:26 Sodium Level 134 MEQ/L 137 MEQ/L 134 MEQ/L 133 MEQ/L (136-145) (136-145) (136-145) (136-145) White Blood Count 8.3 TH/MM3 8.7 TH/MM3 8.3 TH/MM3 (4.0-11.0) (4.0-11.0) (4.0-11.0) Red Blood Count 4.04 MIL/MM3 4.24 MIL/MM3 4.27 MIL/MM3 (4.00-5.30) (4.00-5.30) (4.00-5.30) Hemoglobin 12.6 GM/DL 12.8 GM/DL 13.1 GM/DL (11.6-15.3) (11.6-15.3) (11.6-15.3) Hematocrit 37.7 % 40.3 % 40.1 % (35.0-46.0) (35.0-46.0) (35.0-46.0) Mean Corpuscular Volume 93.2 FL 94.9 FL 94.0 FL (80.0-100.0) (80.0-100.0) (80.0-100.0) Mean Corpuscular Hemoglobin 31.1 PG 30.1 PG 30.6 PG (27.0-34.0) (27.0-34.0) (27.0-34.0) Mean Corpuscular Hemoglobin 33.3 % 31.7 % 32.5 % Concent (32.0-36.0) (32.0-36.0) (32.0-36.0) Red Cell Distribution Width 19.6 % 20.1 % 21.0 % (11.6-17.2) (11.6-17.2) (11.6-17.2) Platelet Count 162 TH/MM3 128 TH/MM3 113 TH/MM3 (150-450) (150-450) (150-450) Mean Platelet Volume 7.9 FL 8.2 FL 8.3 FL (7.0-11.0) (7.0-11.0) (7.0-11.0) Neutrophils (%) (Auto) 74.0 % 63.4 % (16.0-70.0) (16.0-70.0) Lymphocytes (%) (Auto) 15.5 % 24.9 % (9.0-44.0) (9.0-44.0) Monocytes (%) (Auto) 9.2 % (0.0-8.0) 10.2 % (0.0-8.0) Eosinophils (%) (Auto) 1.0 % (0.0-4.0) 1.3 % (0.0-4.0) Basophils (%) (Auto) 0.3 % (0.0-2.0) 0.2 % (0.0-2.0) Neutrophils # (Auto) 6.1 TH/MM3 5.5 TH/MM3 (1.8-7.7) (1.8-7.7) Lymphocytes # (Auto) 1.3 TH/MM3 2.2 TH/MM3 (1.0-4.8) (1.0-4.8) Monocytes # (Auto) 0.8 TH/MM3 0.9 TH/MM3 (0-0.9) (0-0.9) Eosinophils # (Auto) 0.1 TH/MM3 0.1 TH/MM3 (0-0.4) (0-0.4) Basophils # (Auto) 0.0 TH/MM3 0.0 TH/MM3 (0-0.2) (0-0.2) CBC Comment AUTO DIFF AUTO DIFF Differential Total Cells 100 100 Counted Neutrophils % (Manual) 68 % (16-70) 55 % (16-70) Band Neutrophils % 16 % (0-6) 8 % (0-6) Lymphocytes % 10 % (9-44) 25 % (9-44) Monocytes % 5 % (0-8) 11 % (0-8) Eosinophils % 1 % (0-4) 1 % (0-4) Neutrophils # (Manual) 7.0 TH/MM3 5.5 TH/MM3 (1.8-7.7) (1.8-7.7) Nucleated Red Blood Cells 2 /100 WBC 3 /100 WBC (0-0) (0-0) Differential Comment FINAL DIFF FINAL DIFF MANUAL MANUAL Platelet Estimate NORMAL LOW (NORMAL) (NORMAL) Platelet Morphology Comment NORMAL NORMAL (NORMAL) (NORMAL) Potassium Level 3.4 MEQ/L 3.9 MEQ/L 4.4 MEQ/L (3.5-5.1) (3.5-5.1) (3.5-5.1) Chloride Level 94 MEQ/L 94 MEQ/L 93 MEQ/L (98-107) (98-107) (98-107) Carbon Dioxide Level 34.0 MEQ/L 29.6 MEQ/L 30.0 MEQ/L (21.0-32.0) (21.0-32.0) (21.0-32.0) Anion Gap 9 MEQ/L (5-15) 10 MEQ/L (5-15) 10 MEQ/L (5-15) Blood Urea Nitrogen 61 MG/DL (7-18) 65 MG/DL (7-18) 75 MG/DL (7-18) Creatinine 1.85 MG/DL 1.77 MG/DL 2.05 MG/DL (0.50-1.00) (0.50-1.00) (0.50-1.00) Estimat Glomerular Filtration 33 ML/MIN (>89) 34 ML/MIN (>89) 29 ML/MIN (>89) Rate Random Glucose 179 MG/DL 165 MG/DL 158 MG/DL (74-106) (74-106) (74-106) Calcium Level 8.7 MG/DL 8.8 MG/DL 8.7 MG/DL (8.5-10.1) (8.5-10.1) (8.5-10.1) Phosphorus Level 3.3 MG/DL (2.5-4.9) Magnesium Level 2.2 MG/DL (1.5-2.5) Total Bilirubin 1.2 MG/DL 1.0 MG/DL (0.2-1.0) (0.2-1.0) Aspartate Amino Transf 150 U/L (15-37) 148 U/L (15-37) (AST/SGOT) Alanine Aminotransferase 237 U/L (10-53) 272 U/L (10-53) (ALT/SGPT) Alkaline Phosphatase 104 U/L 140 U/L (45-117) (45-117) Total Protein 6.1 GM/DL 6.5 GM/DL (6.4-8.2) (6.4-8.2) Albumin 2.7 GM/DL 2.5 GM/DL (3.4-5.0) (3.4-5.0) Polychromasia 3.3 % (0.0-1.9) Basophilic Stippling FAINT (NORMAL) Acanthocytes OCC (NORMAL) Hematology Comments F Prothrombin Time 17.5 SEC (9.8-11.6) Prothromb Time International 1.6 RATIO Ratio Direct Bilirubin 0.4 MG/DL (0.0-0.2) Indirect Bilirubin 0.6 MG/DL (0.0-0.8) . Result Diagram: 01/25/17 0426 01/25/17 0426 Imaging Last 72 hours Impressions Upper Extremity Ultrasound 01/24/17 0000 Signed Impressions: Service Date/Time: Tuesday, January 24, 2017 08:53 - CONCLUSION: Normal examination for a patient of this age. Kip Arriaga MD . Assessment and Plan Disease Oriented Problem List: (1) Atrial flutter (2) Cardiomyopathy (3) Cardiac LV ejection fraction 10-20% (4) Acute kidney injury (5) History of CVA (cerebrovascular accident) (6) Elevated troponin (7) Transaminitis (8) Hypertension (9) CHF (congestive heart failure) (10) COPD (chronic obstructive pulmonary disease) (11) Severe sepsis with acute organ dysfunction Symptom Scale: (1) Poor appetite (2) Debility (3) Confusion Pertinent Non-Medical Issues Psychosocial: Patient is single and lives alone in [place]. She has a high school education. 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 Patient had 2 daughters and 1 son; her son had ESRD and is . Spiritual: Pentecostalism sanya Legal: Per [place] statutes, in the absence of written advanced directives healthcare proxy decision-making falls to the children's 2 adult daughters, Triny and Lissette Ethical issues impacting care: No known ethical issues impacting care. . Important Contacts Lissette Salinas, daughter: [phone] Triny Amor, daughter: [phone] . Prognosis Ms. Salinas is a 71 yo female with a complicated medical history that includes severe cardiomyopathy with EF 20%. Status post CVA with right-sided hemiparesis and aphasia and October,. The patient has experienced an acute decline, hospitalized 5 times in the past 3 months. Patient is deconditioned with ongoing complications. Currently hospitalized with and multi-system organ dysfunction. Prognosis is poor. . Code Status: Alternative Code (ACLS medications only) Plan * ALTERNATE CODE- ACLS medications only * Decision-making: Per [place] statutes, in the absence of written advanced directives healthcare proxy decision-making falls to the patient's 2 adult daughters (Triny and Lissette). * Goals: Goals remain aggressive up to the point of cardiopulmonary resuscitation. CODE STATUS was changed to ALTERNATE CODE- ACLS medications only. * Pacemaker/AICD deactivated 01/22/2017 * Family meeting rescheduled for 01/26/2017. Patient's daughter (Triny) continues to verbalize that she wants to take her mother back to [place]; patient would likely require medical transport. Family also considering readmission to hospice with possible placement at [facility] * Symptom managementdebility: Patient has a complex medical history; she has experienced a recent decline as evidenced by 5 hospitalizations in the past 3 months. Patient was transferred to rehabilitation after her most recent hospitalization in 11/2016, and her functional status reportedly improved. Having ongoing setbacks and complications, now hospitalized with sepsis and multiorgan dysfunction. Prognosis is poor. Physical therapy and speech therapy are following; OT consult pending. * Palliative care will continue to follow this patient throughout her hospitalization to establish trust, assist with symptom management and clarification of medical treatment goals. Attestation To help prompt me to consider important information that might be impacting today's encounter and assessment, information from prior notes written by myself or my colleagues may have been "brought forward" into today's note. My signature on this note, however, is an attestation that I personally performed the exam, history, and/or decision-making noted today, and, unless otherwise indicated, the interactions with patient, family, and staff as well as the review of records all occurred today. I also attest that the listed assessment and stated plan reflect my best clinical judgment today based on the combination of historical information, prior notes, and today's exam/ interactions. When time spent is documented, it refers only to time spent today by the signer, or if indicated, combined time spent today by collaborating physician/nurse practitioner. . Pita Mccartney Jan 25, 2017 15:36
[2017-01-26] VITALS (27 sets, daily range): BP systolic 84–108; BP diastolic 60–77; PULSE 10–124; RESP 20–26; TEMP 95.7–98.1; O2SAT 95–99
[2017-01-26] MEDS: CHLORHEXIDINE GLUCONATE 2 % 1 PACK (2 CLOTHS) TOP SCH (04:00)
[2017-01-26] MEDS: INSULIN NovoLIN REGULAR SUPPLEMENTAL SCALE SQ SCH ×3 (06:00→17:47)
[2017-01-26 06:48] LABS: HEMATOCRIT 41.7 % (35.0-46.0); MEAN CELL VOLUME 95.5 FL (80.0-100.0); MEAN CORPUSCULAR HEMOGLOBIN 31.1 PG (27.0-34.0); MEAN CORPUSCULAR HGB CONC 32.5 % (32.0-36.0); PLATELET COUNT 102 TH/MM3 (150-450); RED BLOOD COUNT 4.37 MIL/MM3 (4.00-5.30); RED CELL DISTRIBUTION WIDTH 22.5 % (11.6-17.2); REVIEW FLAG FINAL; WHITE BLOOD COUNT 9.2 TH/MM3 (4.0-11.0)
[2017-01-26 07:16] LABS: BICARBONATE 28.4 MEQ/L (21.0-32.0); POTASSIUM 4.6 MEQ/L (3.5-5.1)
[2017-01-26] MEDS: BUMETANIDE 1 MG TAB PO SCH ×2 (07:43→14:22)
[2017-01-26] MEDS: DOCUSATE SODIUM 50 MG/SENNA 8.6 MG TAB PO SCH ×2 (09:00→20:27)
[2017-01-26] MEDS: METOPROLOL TARTRATE 5 MG/5 ML VIAL IV PUSH PRN (09:09)
[2017-01-26] MEDS: PANTOPRAZOLE SODIUM 40 MG VIAL IV SCH (09:48)
[2017-01-26] MEDS: LACTULOSE SYRUP 20 GM/30 ML CUP PO SCH (09:48)
[2017-01-26] MEDS: SODIUM CHLORIDE 0.9% FLUSH 10 ML FLUSH IV FLUSH SCH ×2 (09:49→20:28)
[2017-01-26] MEDS: MEGESTROL ACETATE SUSP 400 MG/10 ML CUP PO SCH ×2 (09:49→17:00)
[2017-01-26] MEDS: ASPIRIN 81 MG CHEW TAB CHEW SCH (09:49)
[2017-01-26] MEDS: AMIODARONE 200 MG TAB PO SCH ×2 (09:49→20:27)
[2017-01-26] MEDS: MULTIVITAMIN TAB PO SCH (09:49)
[2017-01-26] MEDS: ARTIFICIAL TEARS OPTH SOLN 15 ML BTL EACH EYE SCH ×3 (09:50→17:40)
--- NOTE | 2017-01-26 10:42 | HHI.NPPN ---
Subjective General Problems: Hypertension Renal Failure: Acute Interval History She is awake, reporting generalized weakness. Demonstrating fluid overload. Family at bedside. Tachycardic in 130s. Additional Remarks (Dalia Almaguer) Review of Systems Cardiovascular Cardiac: Edema (Dalia Almaguer) Skin Skin: Lesions (Dalia Almaguer) Objective Data Data 01/25/17 01/26/17 19:00 07:00 Intake Total 480 ml 480 ml Output Total 325 ml 650 ml Balance 155 ml -170 ml Intake Oral 240 ml 480 ml Oral Supplement 240 ml IV Total 0 ml Output Urine Total 325 ml 650 ml # Bowel Movements 0 Vital Signs Date Time Temp Pulse Resp B/P Pulse Ox O2 Delivery O2 Flow Rate FiO2 01/26/17 08:00 97.5 118 20 105/74 95 01/26/17 06:00 100 01/26/17 05:58 98.1 101 20 102/77 97 01/26/17 04:00 104 01/26/17 03:00 102 01/26/17 02:00 102 01/26/17 01:00 102 01/26/17 00:00 100 01/26/17 00:00 98.1 96 20 108/76 98 01/25/17 23:00 102 01/25/17 22:00 106 01/25/17 20:00 105 01/25/17 20:00 97.6 105 20 117/74 96 01/25/17 19:00 98 01/25/17 18:03 98 01/25/17 18:03 97.1 105 22 126/81 96 01/25/17 16:00 103 01/25/17 16:00 98.1 103 21 107/65 100 01/25/17 15:00 112 01/25/17 15:00 112 19 97/65 100 01/25/17 14:00 111 01/25/17 14:00 111 19 94/70 100 01/25/17 13:00 106 18 95/74 100 01/25/17 13:00 106 01/25/17 12:00 98.1 110 22 113/68 100 01/25/17 12:00 110 01/25/17 11:00 114 01/25/17 11:00 114 23 100 (Dalia Almaguer) -: 01/26/17 0530 01/26/17 0530 Imaging Last 72 hours Impressions Upper Extremity Ultrasound 01/24/17 0000 Signed Impressions: Service Date/Time: Tuesday, January 24, 2017 08:53 - CONCLUSION: Normal examination for a patient of this age. Kip Arriaga MD Tubes & Lines: Zarate (Dalia Almaguer B. LEAD VULCANIZING OPERATOR) Physical Exam General Appearance: No Acute Distress, Comfortable Appearance Remarks frail appearing (TrippDalia B. LEAD VULCANIZING OPERATOR) Throat Throat Exam: Oral Mucosa [place] & Moist (Tripp,Dalia B. LEAD VULCANIZING OPERATOR) Neck Neck Exam: Neck Supple, Jugular Vein Distension (Tripp,Dalia B. LEAD VULCANIZING OPERATOR) Pulmonary Resp Exam: Decreased Bases, Diminished Breath Sounds (Tripp,Dalia B. LEAD VULCANIZING OPERATOR) Cardiology CV Exam: Irregular, Arrhythmia, Tachycardia (Tripp,Dalia B. LEAD VULCANIZING OPERATOR) Gastrointestinal/Abdomen GI Exam: Soft, Non-Tender, Positive Bowel Movement (Ilan Almagueron B. LEAD VULCANIZING OPERATOR) Musculoskeletal MS Exam: Joints Intact, Normal Tone (TrippDalia B. LEAD VULCANIZING OPERATOR) Integumentary Skin Exam: Warm, Dry Skin Remarks bulla right upper extremity (TrippDalia B. LEAD VULCANIZING OPERATOR) Extremeties Extremities Exam: No Edema (TrippDalia B. LEAD VULCANIZING OPERATOR) Neurologic Neuro Exam: Alert, Awake, Moving All Extremities (TrippDalia B. LEAD VULCANIZING OPERATOR) Psychiatric Psych Exam: Appropriate Responses (TrippDalia B. LEAD VULCANIZING OPERATOR) Assessment/Plan Discussed Condition With: Patient, Daughter Assessment Summary: Fluid/Volume Overload, Hypertension Problem List: (1) Acute kidney injury Plan: PREMA on CKD 3: Her baseline creatinine has been near 1.6-1.8. Suspected underlying cardiorenal syndrome; PREMA may be due to ATN secondary to hypoperfusion during episodes of V-tach. she has fluid overload, Bumex has been restarted, continue 2 mg BID IV renal function has improved she has zarate in place, is non oliguric, leave in place for the time being repeat renal panel in am avoid IVF avoid nephrotoxic medications (2) CHF (congestive heart failure) Plan: EF 20-25% Bumex was resumed as she is demonstrating fluid overload Palliative to meet with family, may transition to hospice services (3) Afib Plan: with RVR continue metoprolol and amiodarone, follow rate/response she has AICD in place (4) Metabolic acidosis Plan: corrected, off bicarbonate drip (5) Failure to thrive in adult Plan: Continue to follow goals of care with family palliative meeting this week (6) V-tach Plan: Resolved, continue to monitor (7) Hyponatremia Plan: hypervolemic continue Loop diuretics (Dalia Almaguer) Plan patient was seen and examined. Agree with above assessment and plan. Prognosis is guarded. (Ashvin England MD) Dalia Almaguer Jan 26, 2017 10:42 Ashvin England MD Jan 26, 2017 17:29
--- NOTE | 2017-01-26 11:50 | HHI.HCPN ---
Reason for visit a. To assist with evaluation and management of symptoms including: Confusion , debility, poor appetite b. To assist medical decision maker(s) with: better understanding of current medical conditions; weighing benefits/burdens of medical treatment options; making medical treatment decisions. . Subjective/Interval History Ms. Salinas is a 71 year old female with a history of atrial flutter, history of CVA in 10/2016, hypertension, HLD, COPD, DM, HTN, CHF (EF 2025%), cardiomyopathy, CKD and CAD. Status post episode of V. tach on January 21, 2017 with possible ATN secondary to hypoperfusion with worsening renal function today. BUN: 75, creatinine 2.05, GFR 29. Baseline creatinine near 1.61.8. Nephrology is following; Dr. Quiroz saw the patient today. Bumex restarted. Patient remains stable. BUN/creatinine remain elevated 71/ 1.95. Has been transferred out of ICU. Palliative planned to meet with family yesterday, they requested to postpone until today. Pt seen in room (with ESTHELA Ramos) dtr Triny at bedside. She is alert, preparing for bath/am care with INSURANCE ACCOUNT REPRESENTATIVE. She indicates feeling ok overall , denies pain,shortness of breath, GI complaints. Inquire RE possible meeting w additional family today, dtr indicates other family will be here around /after 2, plan to meet with them at 2:30pm today . Family/friend interactions Met with 2 daughters Lissette Agosto, patient, at bedside [id number], then met with 2 daughter separately additionally outside patient room per patient request. Discussion included: * Patient cognitive and functional status in the months to weeks prior to this admission * Review of current medical conditions, prognosis, treatment in place, likely trajectory going forward; patient will likely continue to experience complications and setbacks and recurrent hospitalizations //alternatively review hospice option in transition to comfort focus * CODE STATUS[] family affirms patient should remain alternative code, ACLS drugs only * Palliative care contact information provided At this time it seems as if patient and daughters are struggling. Patient with limited participation she is stressed and requests us talk further with out her. On further discussion with daughters they seem to have some understanding of her overall prognosis and fragile status due to her multiple chronic medical conditions; they understand her expected trajectory. On one hand he wants to leave things in God's hands and when it's her time is her time however on the other hand they don't quite think it's her time yet and would still want some medical intervention when necessary. They endorse that her most recent hospice enrollment was actually recommended by her primary care physician, they had no involvement or knowledge of it until she was already enrolled. She experienced decline in the home setting, they activated EMS and she was admitted this hospitalization for sepsis. They indicated that type of event happened again they would probably still want to treat aggressively. They would not however want artificial ventilation, or chest compressions or shocks. Explore them limited treatment options that even with ideal medical management patient will continue to experience exacerbations, complications and recurrent hospitalizations. Explore that she is too weak to go back to the home setting at this time unless she had 24-hour care, that like she she will require rehabilitation and possibly long-term placement. Additionally explore that if she did go to rehabilitation and did not do well or decline in the coming days or weeks and then they can elect hospice at that time if she does not wish to return to the hospital. They wish to continue to take things one day at a time for now goals to my aggressive short of alternative resuscitation. They would like to get her to rehabilitation/SNF and go from there. Advance Directives Advance Directive Specifics Documented care wishes: Patient's family states the patient completed her "5 wishes", but it cannot be found at this time. No living will was completed. . Objective Vital Signs Date Time Temp Pulse Resp B/P Pulse Ox O2 Delivery O2 Flow Rate FiO2 01/26/17 08:00 97.5 118 20 105/74 95 01/26/17 06:00 100 01/26/17 05:58 98.1 101 20 102/77 97 01/26/17 04:00 104 01/26/17 03:00 102 01/26/17 02:00 102 01/26/17 01:00 102 01/26/17 00:00 100 01/26/17 00:00 98.1 96 20 108/76 98 01/25/17 23:00 102 01/25/17 22:00 106 01/25/17 20:00 105 01/25/17 20:00 97.6 105 20 117/74 96 01/25/17 19:00 98 01/25/17 18:03 98 01/25/17 18:03 97.1 105 22 126/81 96 01/25/17 16:00 103 01/25/17 16:00 98.1 103 21 107/65 100 01/25/17 15:00 112 01/25/17 15:00 112 19 97/65 100 01/25/17 14:00 111 01/25/17 14:00 111 19 94/70 100 01/25/17 13:00 106 18 95/74 100 01/25/17 13:00 106 01/25/17 12:00 98.1 110 22 113/68 100 01/25/17 12:00 110 Intake & Output 01/26/17 01/26/17 07:00 19:00 Intake Total 480 ml Output Total 650 ml Balance -170 ml Intake Oral 480 ml Output Urine Total 650 ml Physical Exam CONSTITUTIONAL/GENERAL: This is a frail, elderly female patient , appears fatigued TUBES/LINES/DRAINS: PIV x 3, SCD, Cavanaugh catheter, nasal cannula SKIN: No jaundice, rashes, or lesions. +few large bullous vesicles rt forearm Skin temperature appropriate. Not diaphoretic. CARDIOVASCULAR: Irregularly irregular. No JVD. peripheral pulses palpable RESPIRATORY/CHEST: Symmetric, unlabored respirations, NC O2. Breath sounds diminished bilaterally. GASTROINTESTINAL: Abdomen soft, non-tender, nondistended. Bowel sounds present. GENITOURINARY: Without palpable bladder distension. Cavanaugh catheter in place. NEUROLOGICAL: awake though lethargic/flat. answers simple yes/no questions. moves very slowly, generalized weakness PSYCHIATRIC: No obvious anxiety/depression/ flat affect. . Diagnostic Tests Laboratory Laboratory Tests Test 01/24/17 01/25/17 01/26/17 04:29 04:26 05:30 White Blood Count 8.7 TH/MM3 8.3 TH/MM3 9.2 TH/MM3 (4.0-11.0) (4.0-11.0) (4.0-11.0) Red Blood Count 4.24 MIL/MM3 4.27 MIL/MM3 4.37 MIL/MM3 (4.00-5.30) (4.00-5.30) (4.00-5.30) Hemoglobin 12.8 GM/DL 13.1 GM/DL 13.6 GM/DL (11.6-15.3) (11.6-15.3) (11.6-15.3) Hematocrit 40.3 % 40.1 % 41.7 % (35.0-46.0) (35.0-46.0) (35.0-46.0) Mean Corpuscular Volume 94.9 FL 94.0 FL 95.5 FL (80.0-100.0) (80.0-100.0) (80.0-100.0) Mean Corpuscular Hemoglobin 30.1 PG 30.6 PG 31.1 PG (27.0-34.0) (27.0-34.0) (27.0-34.0) Mean Corpuscular Hemoglobin 31.7 % 32.5 % 32.5 % Concent (32.0-36.0) (32.0-36.0) (32.0-36.0) Red Cell Distribution Width 20.1 % 21.0 % 22.5 % (11.6-17.2) (11.6-17.2) (11.6-17.2) Platelet Count 128 TH/MM3 113 TH/MM3 102 TH/MM3 (150-450) (150-450) (150-450) Mean Platelet Volume 8.2 FL 8.3 FL 8.7 FL (7.0-11.0) (7.0-11.0) (7.0-11.0) Neutrophils (%) (Auto) 63.4 % (16.0-70.0) Lymphocytes (%) (Auto) 24.9 % (9.0-44.0) Monocytes (%) (Auto) 10.2 % (0.0-8.0) Eosinophils (%) (Auto) 1.3 % (0.0-4.0) Basophils (%) (Auto) 0.2 % (0.0-2.0) Neutrophils # (Auto) 5.5 TH/MM3 (1.8-7.7) Lymphocytes # (Auto) 2.2 TH/MM3 (1.0-4.8) Monocytes # (Auto) 0.9 TH/MM3 (0-0.9) Eosinophils # (Auto) 0.1 TH/MM3 (0-0.4) Basophils # (Auto) 0.0 TH/MM3 (0-0.2) CBC Comment AUTO DIFF Differential Total Cells 100 Counted Neutrophils % (Manual) 55 % (16-70) Band Neutrophils % 8 % (0-6) Lymphocytes % 25 % (9-44) Monocytes % 11 % (0-8) Eosinophils % 1 % (0-4) Neutrophils # (Manual) 5.5 TH/MM3 (1.8-7.7) Nucleated Red Blood Cells 3 /100 WBC (0-0) Differential Comment FINAL DIFF MANUAL Platelet Estimate LOW (NORMAL) Platelet Morphology Comment NORMAL (NORMAL) Polychromasia 3.3 % (0.0-1.9) Basophilic Stippling FAINT (NORMAL) Acanthocytes OCC (NORMAL) Hematology Comments F Prothrombin Time 17.5 SEC (9.8-11.6) Prothromb Time International 1.6 RATIO Ratio Sodium Level 134 MEQ/L 133 MEQ/L 132 MEQ/L (136-145) (136-145) (136-145) Potassium Level 3.9 MEQ/L 4.4 MEQ/L 4.6 MEQ/L (3.5-5.1) (3.5-5.1) (3.5-5.1) Chloride Level 94 MEQ/L 93 MEQ/L 91 MEQ/L (98-107) (98-107) (98-107) Carbon Dioxide Level 29.6 MEQ/L 30.0 MEQ/L 28.4 MEQ/L (21.0-32.0) (21.0-32.0) (21.0-32.0) Anion Gap 10 MEQ/L (5-15) 10 MEQ/L (5-15) 13 MEQ/L (5-15) Blood Urea Nitrogen 65 MG/DL (7-18) 75 MG/DL (7-18) 71 MG/DL (7-18) Creatinine 1.77 MG/DL 2.05 MG/DL 1.93 MG/DL (0.50-1.00) (0.50-1.00) (0.50-1.00) Estimat Glomerular Filtration 34 ML/MIN (>89) 29 ML/MIN (>89) 31 ML/MIN (>89) Rate Random Glucose 165 MG/DL 158 MG/DL 169 MG/DL (74-106) (74-106) (74-106) Calcium Level 8.8 MG/DL 8.7 MG/DL 8.8 MG/DL (8.5-10.1) (8.5-10.1) (8.5-10.1) Total Bilirubin 1.0 MG/DL (0.2-1.0) Direct Bilirubin 0.4 MG/DL (0.0-0.2) Indirect Bilirubin 0.6 MG/DL (0.0-0.8) Aspartate Amino Transf 148 U/L (15-37) (AST/SGOT) Alanine Aminotransferase 272 U/L (10-53) (ALT/SGPT) Alkaline Phosphatase 140 U/L (45-117) Total Protein 6.5 GM/DL (6.4-8.2) Albumin 2.5 GM/DL (3.4-5.0) Result Diagram: 01/26/1752901/26/17529 Imaging Last Impressions Upper Extremity Ultrasound 01/24/17 Signed Impressions: Service Date/Time: Tuesday, January 24, 2017 08:53 - CONCLUSION: Normal examination for a patient of this age. Kip Arriaga MD Liver Ultrasound 01/22/17 Signed Impressions: Service Date/Time: Sunday, January 22, 2017 14:51 - CONCLUSION: 1. Dilatation the common bile duct likely reflecting a reservoir following cholecystectomy. This could be correlated clinically and with the patient's laboratory biliary status. 2. Bilateral pleural effusions. Mello Oglesby MD Chest X-Ray 01/17/17 1556 Signed Impressions: Service Date/Time: Tuesday, January 17, 2017 16:07 - CONCLUSION: 1. Left basilar opacity may represent atelectasis, consolidation, and/or pleural effusion. 2. Stable enlargement of the cardiac silhouette within abnormal cardiac shape. Mello Dorman MD Head CT 01/17/17 0000 Signed Impressions: Service Date/Time: Tuesday, January 17, 2017 17:13 - CONCLUSION: Negative for an acute process. Herve Fam MD FACR Chest CT 01/17/17 0000 Signed Impressions: Service Date/Time: Tuesday, January 17, 2017 17:18 - CONCLUSION: Cardiomegaly. Small right effusion. Mild basilar atelectasis. Mello Cameron MD Abdomen/Pelvis CT 01/17/17 0000 Signed Impressions: Service Date/Time: Tuesday, January 17, 2017 17:18 - CONCLUSION: Massive cardiomegaly without pericardial effusion. Minimal failure with small right pleural effusion and trace ascites. There is no gastric distention. Herve Fam MD FACR Assessment and Plan Disease Oriented Problem List: (1) Atrial flutter (2) Cardiomyopathy (3) Cardiac LV ejection fraction 10-20% (4) Acute kidney injury (5) History of CVA (cerebrovascular accident) (6) Elevated troponin (7) Transaminitis (8) Hypertension (9) CHF (congestive heart failure) (10) COPD (chronic obstructive pulmonary disease) (11) Severe sepsis with acute organ dysfunction Symptom Scale: (1) Poor appetite (2) Debility (3) Confusion Pertinent Non-Medical Issues Psychosocial: Patient is single and lives alone in [place]. She has a high school education. 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 Patient had 2 daughters and 1 son; her son had ESRD and is . Spiritual: Religious sanya Legal: Per [place] statutes, in the absence of written advanced directives healthcare proxy decision-making falls to the children's 2 adult daughters, Isa Ethical issues impacting care: No known ethical issues impacting care. . Important Contacts Lissette Salinas, daughter: [phone] Triny Mt, daughter: [phone] . Prognosis Ms. Salinas is a 71 yo female with a complicated medical history that includes severe cardiomyopathy with EF 20%. Status post CVA with right-sided hemiparesis and aphasia and October,. The patient has experienced an acute decline, hospitalized 5 times in the past 3 months. Patient is deconditioned with ongoing complications. Currently hospitalized with and multi-system organ dysfunction. Prognosis is poor. . Code Status: Alternative Code (ACLS medications only) Plan * ALTERNATE CODE- ACLS medications only * Decision-making: Per [place] statutes, in the absence of written advanced directives healthcare proxy decision-making falls to the patient's 2 adult daughters (Triny and Lissette). * Goals: Follow-up meeting today 01/26/17 with 2 daughters, patient. At this time it seems as if patient and daughters are struggling. Patient with limited participation she is stressed and requests us talk further with out her. On further discussion with daughters they seem to have some understanding of her overall prognosis and fragile status due to her multiple chronic medical conditions; they understand her expected trajectory. On one hand he wants to leave things in God's hands and when it's her time is her time however on the other hand they don't quite think it's her time yet and would still want some medical intervention when necessary. They endorse that her most recent hospice enrollment was actually recommended by her primary care physician, they had no involvement or knowledge of it until she was already enrolled. She experienced decline in the home setting, they activated EMS and she was admitted this hospitalization for sepsis. They indicated that type of event happened again they would probably still want to treat aggressively. They would not however want artificial ventilation, or chest compressions or shocks. Explore them limited treatment options that even with ideal medical management patient will continue to experience exacerbations, complications and recurrent hospitalizations. Explore that she is too weak to go back to the home setting at this time unless she had 24-hour care, that like she she will require rehabilitation and possibly long-term placement. Additionally explore that if she did go to rehabilitation and did not do well or decline in the coming days or weeks and then they can elect hospice at that time if she does not wish to return to the hospital. They wish to continue to take things one day at a time for now goals to my aggressive short of alternative resuscitation. They would like to get her to rehabilitation/SNF and go from there. [They are open to ongoing conversations during clinical course] * Pacemaker/AICD deactivated 01/22/2017 * Symptom managementdebility: Patient has a complex medical history; she has experienced a recent decline as evidenced by 5 hospitalizations in the past 3 months. Patient was transferred to rehabilitation after her most recent hospitalization in 11/2016, and her functional status reportedly improved. Having ongoing setbacks and complications, now hospitalized with sepsis and multiorgan dysfunction. Prognosis is poor. Physical therapy and speech therapy are following; OT following, patient able to participate some in self- care, very weak. * Palliative care will continue to follow this patient throughout her hospitalization to establish trust, assist with symptom management and clarification of medical treatment goals. Attestation To help prompt me to consider important information that might be impacting today's encounter and assessment, information from prior notes written by myself or my colleagues may have been "brought forward" into today's note. My signature on this note, however, is an attestation that I personally performed the exam, history, and/or decision-making noted today, and, unless otherwise indicated, the interactions with patient, family, and staff as well as the review of records all occurred today. I also attest that the listed assessment and stated plan reflect my best clinical judgment today based on the combination of historical information, prior notes, and today's exam/ interactions. When time spent is documented, it refers only to time spent today by the signer, or if indicated, combined time spent today by collaborating physician/nurse practitioner. Katherine Wayne Jan 26, 2017 11:49
--- NOTE | 2017-01-26 12:09 | HHI.PR ---
Subjective Remarks appears weak, on pureed diet Objective Vitals Vital Signs Date Time Temp Pulse Resp B/P Pulse Ox O2 Delivery O2 Flow Rate FiO2 01/26/17 08:00 97.5 118 20 105/74 95 01/26/17 06:00 100 01/26/17 05:58 98.1 101 20 102/77 97 01/26/17 04:00 104 01/26/17 03:00 102 01/26/17 02:00 102 01/26/17 01:00 102 01/26/17 00:00 100 01/26/17 00:00 98.1 96 20 108/76 98 01/25/17 23:00 102 01/25/17 22:00 106 01/25/17 20:00 105 01/25/17 20:00 97.6 105 20 117/74 96 01/25/17 19:00 98 01/25/17 18:03 98 01/25/17 18:03 97.1 105 22 126/81 96 01/25/17 16:00 103 01/25/17 16:00 98.1 103 21 107/65 100 01/25/17 15:00 112 01/25/17 15:00 112 19 97/65 100 01/25/17 14:00 111 01/25/17 14:00 111 19 94/70 100 01/25/17 13:00 106 18 95/74 100 01/25/17 13:00 106 I/O 01/25/17 01/25/17 01/25/17 01/26/17 01/26/17 01/26/17 07:00 15:00 23:00 07:00 15:00 23:00 Intake Total 50 ml 480 ml 480 ml Output Total 200 ml 325 ml 650 ml Balance -150 ml 155 ml -170 ml Intake Oral 50 ml 240 ml 480 ml Oral Supplement 240 ml IV Total 0 ml Output Urine Total 200 ml 325 ml 650 ml # Bowel Movements 0 Result Diagram: 01/26/1730 01/26/1730 Imaging Last Impressions Upper Extremity Ultrasound 01/24/17 0000 Signed Impressions: Service Date/Time: Tuesday, January 24, 2017 08:53 - CONCLUSION: Normal examination for a patient of this age. Kip Arriaga MD Liver Ultrasound 01/22/17 0000 Signed Impressions: Service Date/Time: Sunday, January 22, 2017 14:51 - CONCLUSION: 1. Dilatation the common bile duct likely reflecting a reservoir following cholecystectomy. This could be correlated clinically and with the patient's laboratory biliary status. 2. Bilateral pleural effusions. Mello Oglesby MD Chest X-Ray 01/17/17 1556 Signed Impressions: Service Date/Time: Tuesday, January 17, 2017 16:07 - CONCLUSION: 1. Left basilar opacity may represent atelectasis, consolidation, and/or pleural effusion. 2. Stable enlargement of the cardiac silhouette within abnormal cardiac shape. Mello Dorman MD Head CT 01/17/17 0000 Signed Impressions: Service Date/Time: Tuesday, January 17, 2017 17:13 - CONCLUSION: Negative for an acute process. Herve Fam MD FACR Chest CT 01/17/17 0000 Signed Impressions: Service Date/Time: Tuesday, January 17, 2017 17:18 - CONCLUSION: Cardiomegaly. Small right effusion. Mild basilar atelectasis. Mello Cameron MD Abdomen/Pelvis CT 01/17/17 0000 Signed Impressions: Service Date/Time: Tuesday, January 17, 2017 17:18 - CONCLUSION: Massive cardiomegaly without pericardial effusion. Minimal failure with small right pleural effusion and trace ascites. There is no gastric distention. Herve Fam MD FACR Objective Remarks weak anicteric lungs- decreased breath sounds and decreased vocal fremitie- left lF regular rhythm abdomens-soft, nontender extremities LUE_ swelling with some blisters LE trace edema some right sided weakness A/P Problem List: (1) Metabolic acidosis ICD Code: E87.2 Status: Acute (2) NSTEMI (non-ST elevated myocardial infarction) ICD Code: I21.4 Status: Acute (3) Sepsis ICD Code: A41.9 Status: Acute (4) Renal failure ICD Code: N19 Status: Acute (5) Implantable cardioverter-defibrillator generator end of life ICD Code: Z45.02 Status: Acute (6) Hyperkalemia ICD Code: E87.5 Status: Acute (7) Atrial flutter ICD Code: I48.92 Status: Resolved (8) Congestive heart failure ICD Code: I50.9 Status: Chronic (9) COPD (chronic obstructive pulmonary disease) ICD Code: J44.9 Status: Chronic (10) Elevated troponin level ICD Code: R79.89 Status: Acute (11) CAD (coronary artery disease) ICD Code: I25.10 Status: Acute (12) Impaired mobility and activities of daily living ICD Code: Z74.09 Status: Acute (13) Hemiparesis affecting dominant side as late effect of cerebrovascular accident (CVA) ICD Code: I69.359 Status: Chronic (14) HTN (hypertension) ICD Code: I10 Status: Chronic (15) CKD (chronic kidney disease) stage 3, GFR 30-59 ml/min ICD Code: N18.3 Status: Chronic (16) DM2 (diabetes mellitus, type 2) ICD Code: E11.9 Status: Chronic (17) Leukocytosis ICD Code: D72.829 Status: Acute (18) Lactic acidosis ICD Code: E87.2 Status: Acute (19) Hyperphosphatemia ICD Code: E83.39 Status: Acute (20) Hypermagnesemia ICD Code: E83.41 Status: Acute (21) Insomnia ICD Code: G47.00 Status: Acute (22) Failure to thrive in adult ICD Code: R62.7 Status: Acute (23) Severe sepsis with acute organ dysfunction ICD Code: A41.9 Status: Acute Assessment and Plan 71yF with multiple acute on chronic medical problems, now with worsening oliguric PREMA. Cr worsening today with restarting bumex and d/c fluids, but clinically appears volume overloaded, she continues with all her medical problems, volume overload, pneumonia, heart failure. Still unlikely to recover. at family's request, continuing aggressive care. poor prognosis. however, no indication for ICU admission at this time, and she can be equally well taken care of out of ICU. 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 Depression Failure to thrive Insomnia Lethargy Hold Zoloft 50 mg by mouth daily for depression secondary to patient's current lethargy Holding Restoril 7.5 mg daily at bedtime as home medication for insomnia Continue Megace 400 mg by mouth daily for failure to thrive CT Brain 01/17 revealed no acute intracranial findings Avoid all sedating type medications, and correction of hypoglycemia Ammonia persistently elevated, continue lactulose CV: Severe sepsis with multisystem organ failure Chronic systolic heart failure ejection fraction 20% History of atrial flutter status post ablation 10/[address] Velazquez Hypertension Dyslipidemia Lactic acidosis is likely cardiac etiology Status post AICD placement-deactivated 01/21 Elevated troponin H/O IL Holding Zocor 40 mg by mouth daily for dyslipidemia. Resume when clinically indicated Holding Bumex 2 mg by mouth twice a day and spironolactone 25 mg at night due to hypotension and acute kidney injury.. 01/20 Lactate 2.3 Echocardiogram 01/18-ejection fraction 5%. Possible basal posterior and apical kinesis and severe hypokinesis of all other segments Dr. Olson, communications tower technician- signed off 01/21 Continue aspirin 81 mg by mouth daily 01/20 BNP > 5000 01/21 episode of V. tach was self resolution. A. fib RVR amiodarone infusion initiated, will restart Metoprolol when clinically improvement in BP. 01/24 Started on amiodarone PO Resp: History COPD Left pleural effusion by cliical exam vs atelectasis Nasal cannula to maintain saturations greater than equal to 92%, Repeat CXR today. if goals- if aggressive with get an US guided thoracentesis if + effusion Incentive spirometry while awake Duo nebs every 6 hours and albuterol every 2 hours when necessary dyspnea CT chest 01/08 revealed massive cardiomegaly, small right pleural effusion 01/18 Metabolic acidosis was noted patient was placed on bicarbonate infusion, anion gap improved, discontinued on 01/19, restarted 01/21 01/23 bicarbonate level 34, discontinue sodium bicarbonate infusion GI: Nausea/vomiting-resolved Transaminitis 1800 ADA diet Protonix for GI prophylaxis PeriColace for bowel regimen On Megace for anorexia. CT abdomen/pelvis revealed no signs of bowel obstruction. 01/21 liver enzymes continue to increase, with severe hypoglycemia , shock liver ? GI consulted 01/22 F/U liver US, Hepatitis panel : Cavanaugh catheter for accurate I's and O's in a critically ill patient Endo: Diabetes mellitus Hypoglycemia Sliding-scale insulin with Accu-Cheks every 4 hours to maintain euglycemia/low regimen Holding glipizide 10 mg before meals TSH and cortisol WNL Renal: Acute kidney injury in the setting of chronic kidney disease Baseline creatinine around 1.7 Avoid nephrotoxic drugs Accurate I's and O's Monitor urine output Check urine electrolytes and eosinophils No hydronephrosis on CT abdomen/pelvis Dr. 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 Noted 5 kg wt gain since admission. 01/24: restarted bumex per nephrology. Heme: Leukocytosis-resolved Elevated PT/INR and PTT Monitor CBC daily. Follow trends Holding Eliquis 5 mg BID, INR 1.3 01/17 fibrinogen WNL ID: Severe sepsis source pneumonia aspiration? UTI? Zosyn, vancomycin discontinued 08/26 worsening creatinine 01/21 ID following- Dr. Johnson, all antibiotics discontinued 01/22 per ID Pertinent cultures - Blood cultures 2 01/17 -Bacillus - Urine culture 01/17 - pending Sputum culture-pending influenza A & B-negative FEN: Hyponatremia Hyperkalemia-resolved Hyper-magnesium Hyperphosphatemia 01/21 IVF D5NS @42cc/hr Received hyperkalemia protocol in ED. 01/23 sodium bicarbonate discontinued MSK: PT evaluate and treat 01/21 Bilateral upper arm edema-ultrasound bilateral lower extremities negative Access - Utilize peripheral IV. Change PIV's 01/21 Central line if indicated Prophylaxis - GI -Protonix - DVT - SCD/holding pharmacological prophylaxis with eliquis is due to acute kidney injury creatinine greater than 1.5 Family discussions: 01/22 V. tach episode, family discussion with palliative care medicine. It was decided alternate CODE STATUS be initiated, ACLS drugs only. AICD was interrogated and deactivated. Possible plan for transfer back to hospice, will consult nephrology for any additional recommendations and further discussion with palliative medicine regarding disposition. 01/23: Further interventions planned. Consult with palliative care medicine regarding transition back to hospice care on Tuesday. Patient is not a candidate for dialysis per nephrology, Dr. Cunningham, no further interventions planned. 01/24: palliative met and family continues to want aggressive medical care. Family meeting today with hospice Problem Qualifiers (1) Sepsis: Qualified Code: A41.9 - Sepsis, due to unspecified organism (2) Renal failure: Qualified Code: N17.9 - Acute renal failure superimposed on stage 3 chronic kidney disease, unspecified acute renal failure type (3) Atrial flutter: Qualified Code: I48.92 - Atrial flutter, unspecified type (4) Congestive heart failure: Qualified Code: I50.20 - Systolic congestive heart failure, unspecified congestive heart failure chronicity (5) COPD (chronic obstructive pulmonary disease): Qualified Code: J44.9 - Chronic obstructive pulmonary disease, unspecified COPD type (6) CAD (coronary artery disease): (7) HTN (hypertension): Qualified Code: I15.9 - Secondary hypertension (8) DM2 (diabetes mellitus, type 2): Qualified Code: E11.8 - Type 2 diabetes mellitus with complication, without long-term current use of insulin (9) Leukocytosis: Qualified Code: D72.829 - Leukocytosis, unspecified type (10) Insomnia: Qualified Code: G47.00 - Insomnia, unspecified type Masha Pleitez MD Jan 26, 2017 12:09
--- NOTE | 2017-01-26 13:50 | RADRPT ---
EXAM DATE/TIME: 01/26/2017 12:34 [facility] COMPARISON: CHEST SINGLE AP, January 17, 2017, 16:07. INDICATIONS : Left pleural effusion. MEDICAL HISTORY : Congestive heart failure. Hypercholesterolemia. CVA. Confusion. Weakness. CAD. Palpitations. Aflutter . HTN. COPD. Asthma. Dyspnea. Diabetes. Gait problems. Anxiety. Anticoagulant therapy. SURGICAL HISTORY : Pacemaker. Appendectomy. Cholecystectomy. Hysterectomy. Blood transfusions. ENCOUNTER: Initial ACUITY: 3 days PAIN SCORE: Non-responsive. LOCATION: chest FINDINGS: Stable dual lead AICD device in place. Likely moderate bilateral pleural effusions with associated lo wer lobe airspace disease. Cardiac silhouette remains enlarged. Remainder of the exam is unchanged. CONCLUSION: 1. Moderate bilateral pleural effusions with associated lower lobe airspace disease. 2. Stable enlargement of the cardiac silhouette. Alon Montenegro MD on January 26, 2017 at 13:45 Board Certified Radiologist. This report was verified electronically.
--- NOTE | 2017-01-26 14:44 | HHI.GIFU ---
Subjective Remarks Pt resting in bed, daughter at bedside. Pt c/o gas, + flatus. Had scant soft BM this morning. Per daughter she is eating more. 60% bfast, lunch, 1/2 glucerna. Objective Vitals I&O Vital Signs Date Time Temp Pulse Resp B/P Pulse Ox O2 Delivery O2 Flow Rate FiO2 01/26/17 14:31 96 Nasal Cannula 2.00 01/26/17 12:00 97.4 121 20 100/67 95 01/26/17 08:00 97.5 118 20 105/74 95 01/26/17 06:00 100 01/26/17 05:58 98.1 101 20 102/77 97 01/26/17 04:00 104 01/26/17 03:00 102 01/26/17 02:00 102 01/26/17 01:00 102 01/26/17 00:00 100 01/26/17 00:00 98.1 96 20 108/76 98 01/25/17 23:00 102 01/25/17 22:00 106 01/25/17 20:00 105 01/25/17 20:00 97.6 105 20 117/74 96 01/25/17 19:00 98 01/25/17 18:03 98 01/25/17 18:03 97.1 105 22 126/81 96 01/25/17 16:00 103 01/25/17 16:00 98.1 103 21 107/65 100 01/25/17 15:00 112 01/25/17 15:00 112 19 97/65 100 I/O 01/25/17 01/25/17 01/25/17 01/26/17 01/26/17 01/26/17 07:00 15:00 23:00 07:00 15:00 23:00 Intake Total 50 ml 480 ml 480 ml Output Total 200 ml 325 ml 650 ml Balance -150 ml 155 ml -170 ml Intake Oral 50 ml 240 ml 480 ml Oral Supplement 240 ml IV Total 0 ml Output Urine Total 200 ml 325 ml 650 ml # Bowel Movements 0 Laboratory Laboratory Tests Test 01/26/17 05:30 White Blood Count 9.2 Red Blood Count 4.37 Hemoglobin 13.6 Hematocrit 41.7 Mean Corpuscular Volume 95.5 Mean Corpuscular Hemoglobin 31.1 Mean Corpuscular Hemoglobin 32.5 Concent Red Cell Distribution Width 22.5 Platelet Count 102 Mean Platelet Volume 8.7 Sodium Level 132 Potassium Level 4.6 Chloride Level 91 Carbon Dioxide Level 28.4 Anion Gap 13 Blood Urea Nitrogen 71 Creatinine 1.93 Estimat Glomerular Filtration 31 Rate Random Glucose 169 Calcium Level 8.8 Imaging Last Impressions Chest X-Ray 01/26/17 0000 Signed Impressions: Service Date/Time: Thursday, January 26, 2017 12:34 - CONCLUSION: 1. Moderate bilateral pleural effusions with associated lower lobe airspace disease. 2. Stable enlargement of the cardiac silhouette. Alon Montenegro MD Upper Extremity Ultrasound 01/24/17 0000 Signed Impressions: Service Date/Time: Tuesday, January 24, 2017 08:53 - CONCLUSION: Normal examination for a patient of this age. Kip Arriaga MD Liver Ultrasound 01/22/17 0000 Signed Impressions: Service Date/Time: Sunday, January 22, 2017 14:51 - CONCLUSION: 1. Dilatation the common bile duct likely reflecting a reservoir following cholecystectomy. This could be correlated clinically and with the patient's laboratory biliary status. 2. Bilateral pleural effusions. Mello Oglesby MD Head CT 01/17/17 0000 Signed Impressions: Service Date/Time: Tuesday, January 17, 2017 17:13 - CONCLUSION: Negative for an acute process. Herve Fam MD FACR Chest CT 01/17/17 0000 Signed Impressions: Service Date/Time: Tuesday, January 17, 2017 17:18 - CONCLUSION: Cardiomegaly. Small right effusion. Mild basilar atelectasis. Mello Cameron MD Abdomen/Pelvis CT 01/17/17 0000 Signed Impressions: Service Date/Time: Tuesday, January 17, 2017 17:18 - CONCLUSION: Massive cardiomegaly without pericardial effusion. Minimal failure with small right pleural effusion and trace ascites. There is no gastric distention. Herve Fam MD FACR Physical Exam HEENT: Normocephalic, normocephalic CHEST: CTA, diminished CARDIAC: Irregular- ABDOMEN: +BS, soft, mildly distended, nontender; no hepatosplenomegaly EXTREMITIES: No clubbing, cyanosis, or edema. [employer]: Pt is lethargic, flat affect Assessment and Plan Plan ASSESSMENT: - Elevated transaminases. Per daughter, no prior history of liver disease in patient or other family members and denies any history of hepatitis, cirrhosis, or alcohol use. S/P cholecystectomy. Her daughter reports that she did have a bout of nausea and vomiting the night before this hospitalization, but has not had any further episodes. The patient denies any abdominal pain. Abdomen/Pelvis CT (01/17/17)----> Massive cardiomegaly without pericardial effusion. Minimal failure with small right pleural effusion and trace ascites. There is no gastric distention. Liver Ultrasound (01/22/17)----> 1. Dilatation the common bile duct likely reflecting a reservoir following cholecystectomy. This could be correlated clinically and with the patient's laboratory biliary status. 2. Bilateral pleural effusions. Hepatitis profile negative. KERI negative. ASMA/AMA pending. This is most likely multifactorial, secondary to hepatic congestion, sepsis. Stable. - Poor nutrition. S/P Calorie count (01/24)-----> Inadequate po intake to meet nutritional needs. Glucerna TID and if no improvement, then consider TF. - Abdominal distention. Resolved. CT as above. + BM's. - Sepsis/Bacteremia. Cx with bacillus species, not anthracis. WBC 8.3. Off abx. ID following. - CAD, Chronic systolic heart failure with EF, Hx aflutter (S/P ablation), elevated troponin. Pt had run of Vtach on 01/21. CCM/Cardiology following. A sodium bicarbonate infusion was given. No defibrillation required. The patient then converted into atrial fibrillation with RVR. She was started on Amiodarone. HR stable. AICD was interrogated and turned off. - PREMA. Creat 2.05 - HTN, Hyperlipidemia, COPD, Small right pleural effusion, DM per primary - Hx embolic CVA/left basal ganglia. s/p angiogram and was found to have a large clot at the ICA, M1 segment, s/p embolectomy with congregation of antegrade flow on 10/25/16 PLAN: - will add simethicone - daily miralax - Cardiac diet - Glucerna TID - Record meal percentages - If no improvement, consider TF to meet nutritional needs - Await Hepatitis profile - Await ASMA, AMA - Monitor LFTs - Avoid hepatotoxic meds - Supportive care - Further recommendations to follow based on results of above - Pt was seen and examined by myself and Dr. José and this note was written on his behalf Kathy Burks Jan 26, 2017 2:44 pm
[2017-01-26] MEDS ORDERED: SIMETHICONE SUSP DROPS 40 MG/0.6 ML 30 ML BTL PO PRN (14:45)
[2017-01-26] MEDS: POLYETHYLENE GLYCOL 17 GM PKG PO SCH (15:50)
--- NOTE | 2017-01-26 15:50 | PD.WCN.NOT ---
Wound Consult Description: Patient seen on [facility] for evaluation of bullae to bilateral arms. Patient assessed laying in bed with bilateral arms open to air.Bilateral upper extremities present with pitting edema and skin that is cool to touch . Diffuse small roofed bullae assessed on bilateral arms. Unroofed bullae noted to L elbow and R forearm. L elbow unroofed bulla measures ~ 0.5cm x ~3cm x ~<0.1. R forearm unroofed bulla measure ~0.5 cm x ~1 cm x~ <0.1 cm. Unroofed bullae noted with minimal serous drainage without odor. Cleansed unroofed bullae with normal saline and applied Xeroform gauze dressing in single layer just over wound beds. Covered with dry 4 x4 gauze dressing and secured with rolled gauze and tape. Left all intact roofed bullae open to air. Communicated with: JONG Lora and Call placed to Doctor Pleitez for orders Recommendation: Recommend to cleanse all unroofed bullae to bilateral upper extremities with normal saline and apply Xeroform gauze dressing in single layer just over wound beds. Please cover with dry 4x4 gauze. Secure dressings with rolled gauze and tape.Do not apply tape to skin. Please leave all intact roofed bullae open to air Rani Muñoz CRN Jan 26, 2017 15:50
[2017-01-26] MEDS: ACETAMINOPHEN/HYDROcodone 325 MG/5 MG TAB PO PRN (17:40)
[2017-01-27] VITALS (26 sets, daily range): BP systolic 103–117; BP diastolic 59–72; PULSE 64–112; RESP 16–28; TEMP 96.7–98.6; O2SAT 93–98
[2017-01-27 03:50] LABS: MITOCHONDRIAL ABS LESS THAN 20.0 U (())
[2017-01-27] MEDS: CHLORHEXIDINE GLUCONATE 2 % 1 PACK (2 CLOTHS) TOP SCH (04:00)
[2017-01-27] MEDS: INSULIN NovoLIN REGULAR SUPPLEMENTAL SCALE SQ SCH ×5 (06:00→23:24)
[2017-01-27] MEDS: BUMETANIDE 1 MG TAB PO SCH ×2 (06:05→14:25)
[2017-01-27 06:09] LABS: HEMATOCRIT 44.3 % (35.0-46.0); MEAN CELL VOLUME 98.4 FL (80.0-100.0); MEAN CORPUSCULAR HEMOGLOBIN 30.2 PG (27.0-34.0); MEAN CORPUSCULAR HGB CONC 30.7 % (32.0-36.0); PLATELET COUNT 83 TH/MM3 (150-450)
[2017-01-27 06:20] LABS: REVIEW FLAG FINAL
[2017-01-27 06:22] LABS: BICARBONATE 14.5 MEQ/L (21.0-32.0); MAGNESIUM 2.6 MG/DL (1.5-2.5); POTASSIUM 6.1 MEQ/L (3.5-5.1)
[2017-01-27] MEDS ORDERED: FUROSEMIDE 100 MG/10 ML VIAL IV PUSH ONE ×2 (08:00→17:00)
[2017-01-27] MEDS ORDERED: SODIUM POLYSTYRENE SULFONATE SUSP 15 GM/60 ML CUP PO ONE (08:15)
[2017-01-27] MEDS ORDERED: DEXTROSE 50% IN WATER 50 ML VIAL(D50) IV PUSH ONE (08:15)
[2017-01-27] MEDS ORDERED: INSULIN HUMAN REGULAR 1,000 UNITS/10 ML VIAL IV PUSH ONE (08:15)
[2017-01-27] MEDS: LACTULOSE SYRUP 20 GM/30 ML CUP PO SCH (09:00)
[2017-01-27] MEDS: DOCUSATE SODIUM 50 MG/SENNA 8.6 MG TAB PO SCH ×2 (09:00→21:00)
[2017-01-27] MEDS: POLYETHYLENE GLYCOL 17 GM PKG PO SCH (09:00)
[2017-01-27] MEDS: MEGESTROL ACETATE SUSP 400 MG/10 ML CUP PO SCH ×2 (09:25→17:38)
[2017-01-27] MEDS: MULTIVITAMIN TAB PO SCH (09:26)
[2017-01-27] MEDS: AMIODARONE 200 MG TAB PO SCH (09:26)
[2017-01-27] MEDS: ASPIRIN 81 MG CHEW TAB CHEW SCH (09:26)
[2017-01-27] MEDS: PANTOPRAZOLE SODIUM 40 MG VIAL IV SCH (09:27)
[2017-01-27] MEDS: SODIUM CHLORIDE 0.9% FLUSH 10 ML FLUSH IV FLUSH SCH ×2 (09:28→21:28)
[2017-01-27] MEDS: ARTIFICIAL TEARS OPTH SOLN 15 ML BTL EACH EYE SCH ×3 (09:28→17:45)
--- NOTE | 2017-01-27 11:46 | HHI.NPPN ---
Subjective General Problems: Hypertension Renal Failure: Acute Interval History Hypotensive overnight. Renal function is worse. Urine output has slowed. Additional Remarks (Dalia Almaguer) Review of Systems General Constitutional: Fatigue (Dalia Almaguer) Cardiovascular Cardiac: Edema (Dalia Almaguer) Skin Skin: Lesions (Dalia Almaguer) Objective Data Data 01/26/17 01/27/17 19:00 07:00 Intake Total 480 ml 240 ml Output Total 150 ml 100 ml Balance 330 ml 140 ml Intake Oral 480 ml 240 ml Output Urine Total 150 ml 100 ml # Bowel Movements 1 1 Vital Signs Date Time Temp Pulse Resp B/P Pulse Ox O2 Delivery O2 Flow Rate FiO2 01/27/17 11:00 97.7 112 28 117/63 95 01/27/17 10:34 93 Nasal Cannula 2.00 01/27/17 08:15 97.7 70 16 111/62 98 01/27/17 06:00 70 01/27/17 05:00 64 01/27/17 04:00 72 01/27/17 03:00 96.7 76 22 103/60 95 01/27/17 03:00 68 01/27/17 02:00 84 01/27/17 01:00 84 01/27/17 00:00 86 01/26/17 23:00 97.1 84 24 95/63 99 01/26/17 23:00 83 01/26/17 22:00 94 01/26/17 21:00 110 01/26/17 20:50 96 Nasal Cannula 2.00 01/26/17 20:00 114 01/26/17 19:26 114 01/26/17 19:00 95.7 112 26 84/60 97 01/26/17 18:40 18 01/26/17 18:00 105 01/26/17 17:00 114 01/26/17 16:00 116 01/26/17 15:00 97.8 111 20 95/71 96 01/26/17 15:00 105 01/26/17 14:31 96 Nasal Cannula 2.00 01/26/17 14:00 90 01/26/17 13:00 94 01/26/17 12:00 98 01/26/17 12:00 97.4 121 20 100/67 95 (Dalia Almaguer) -: 01/27/17 0440 01/27/17 0440 Imaging Last 72 hours Impressions Chest X-Ray 01/26/17 0000 Signed Impressions: Service Date/Time: Tuesday, January 26, 2017 12:34 - CONCLUSION: 1. Moderate bilateral pleural effusions with associated lower lobe airspace disease. 2. Stable enlargement of the cardiac silhouette. Alon Montenegro MD Tubes & Lines: Cavanaugh (Dalia Almaguer BCally MECHANIC WELDER TRUCK DRIVER) Physical Exam General Appearance: No Acute Distress, Comfortable Appearance Remarks frail appearing (Dalia Almaguer B. MECHANIC WELDER TRUCK DRIVER) Throat Throat Exam: Oral Mucosa [place] & Moist (Dalia Almaguer B. MECHANIC WELDER TRUCK DRIVER) Neck Neck Exam: Neck Supple, Jugular Vein Distension (Dalia Almaguer B. MECHANIC WELDER TRUCK DRIVER) Pulmonary Resp Exam: Decreased Bases, Diminished Breath Sounds (Dalia Almaguer B. MECHANIC WELDER TRUCK DRIVER) Cardiology CV Exam: Irregular, Arrhythmia, Tachycardia (Dalia Almaguer B. MECHANIC WELDER TRUCK DRIVER) Gastrointestinal/Abdomen GI Exam: Soft, Non-Tender, Positive Bowel Movement (Dalia Almaguer B. MECHANIC WELDER TRUCK DRIVER) Musculoskeletal MS Exam: Joints Intact, Normal Tone (Dalia Almaguer B. MECHANIC WELDER TRUCK DRIVER) Integumentary Skin Exam: Warm, Dry Skin Remarks bulla right upper extremity (Dalia Almaguer B. MECHANIC WELDER TRUCK DRIVER) Extremeties Extremities Exam: No Edema (Dalia Almaguer B. MECHANIC WELDER TRUCK DRIVER) Neurologic Neuro Exam: Alert, Awake, Moving All Extremities (Dalia Almaguer B. MECHANIC WELDER TRUCK DRIVER) Psychiatric Psych Exam: Appropriate Responses (Dalia Almaguer) Assessment/Plan Discussed Condition With: Patient, Daughter Assessment Summary: Fluid/Volume Overload, Hypertension Problem List: (1) Acute kidney injury Plan: PREMA on CKD 3: Her baseline creatinine has been near 1.6-1.8. Suspected underlying cardiorenal syndrome; PREMA may be due to ATN secondary to hypoperfusion during episodes of V-tach. Hypotension last night may be cause of worsening renal function Hyperkalemic today, given Kayexalate, dextrose, insulin, bicarbonate urine output has slowed she will not do well on dialysis, discussed with daughter, recommend to convert to hospice in the meantime monitor K level avoid nephrotoxic medications repeat labs and await family decision (2) CHF (congestive heart failure) Plan: EF 20-25% Bumex was resumed as she is demonstrating fluid overload her weight is up 15 kg, monitor poor prognosis (3) Afib Plan: with RVR continue metoprolol and amiodarone, follow rate/response she has AICD in place (4) Metabolic acidosis Plan: worse, ordered bicarbonate (5) Failure to thrive in adult Plan: Continue to follow goals of care with family recommend hospice (6) V-tach Plan: Resolved, continue to monitor (7) Hyponatremia Plan: hypervolemic continue Loop diuretics (Dalia Almaguer) Plan patient was seen and examined. Long discussion with the family. Her prognosis is dismal. Not a candidate for dialysis. Unstable for renal replacement therapy , which will not improve her outcome. Hospice was recommended. (Ashvin England MD) Dalia Almaguer Jan 27, 2017 11:46 Ashvin England MD Jan 28, 2017 15:32
[2017-01-27] MEDS: ACETAMINOPHEN/HYDROcodone 325 MG/5 MG TAB PO PRN ×2 (11:57→17:38)
[2017-01-27 13:53] LABS: ALT (GPT) 259 U/L (10-53); ANION GAP 21 MEQ/L (5-15); AST (GOT) 123 U/L (15-37); BLOOD UREA NITROGEN 98 MG/DL (7-18); CHLORIDE 89 MEQ/L (98-107); GLOMERULAR FILTRATION RATE 17 ML/MIN (>89); POTASSIUM 5.8 MEQ/L (3.5-5.1); SODIUM (NA) 127 MEQ/L (136-145)
[2017-01-27 13:55] LABS: ALKALINE PHOSPHATASE 273 U/L (45-117); BETA-HYDROXYBUTYRATE 0.89 MMOL/L (0.00-0.39); CREATINE KINASE 116 U/L (26-192); TOTAL BILIRUBIN ADULT 2.8 MG/DL (0.2-1.0)
--- NOTE | 2017-01-27 14:41 | HHI.HCPN ---
Reason for visit a. To assist with evaluation and management of symptoms including: Confusion , debility, poor appetite, pain b. To assist medical decision maker(s) with: better understanding of current medical conditions; weighing benefits/burdens of medical treatment options; making medical treatment decisions. . Subjective/Interval History Ms. Salinas was transferred ti [facility], she presents sitting upright in bed in room 251. Also present, patient's daughter (Fred). Patient is lethargic. Occasionally responds to simple questions with one-word answers, acquired is much prompting. She remains extremely weak and lethargic, falling asleep throughout examination. Occupational therapy and physical are following. Appetite remains poor < 50%, despite appetite stimulant. Speech therapy continues to follow. Megace started on 01/18/2017. Patient's daughter is attempting to feed the patient who is pocketing food, requiring ongoing encouragement and verbal prompts. LBM: 01/27/2017scant, soft. BUE are edematous and weeping; wound care was consulted for evaluation of bullae to bilateral arms. Patient's daughter reports the patient' having intermittent pain. Current orders for PRN [place] (5-325mg tab) q4 hours PO for pain rated 15 and PRN Morphine 2 mg IV q2 hours for pain rated 610. 24-hour dosing requirements: [place] 5325mg x 2 Follow-up chest x-ray on 12/27/2016 showing moderate bilateral pleural effusions with associated lower lobe airspace disease; stable enlargement of the cardiac silhouette. Sodium: 127, potassium 5.8, chloride 89, carbon dioxide 17.0, glucose 199 Total bilirubin: 2.8, AST 123, ALT 259, alkaline phosphatase 273 Worsening renal functioning, decreased UOP . BUN: 98, creatinine 3.22, GFR 17. Patient is not a candidate for HD; nephrology discussed with the patient's daughter and recommendations were made for hospice. Palliative care meet with family at patient's bedside, having ongoing conversations related to the patient worsening clinical condition. Discussed aggressive versus comfort focused care. Patient's daughter states she and the family have decided they would like to take their mom home with hospice services to focus on her comfort. Hospice consult placed; discussed with patient's nurse and hospice admission nurse (Bety). . Advance Directives Advance Directive Specifics Documented care wishes: Patient's family states the patient completed her "5 wishes", but it cannot be found at this time. No living will was completed. . Significant change in goals: Hospice consult pending . Objective Vital Signs Date Time Temp Pulse Resp B/P Pulse Ox O2 Delivery O2 Flow Rate FiO2 01/27/17 11:00 97.7 112 28 117/63 95 01/27/17 10:34 93 Nasal Cannula 2.00 01/27/17 08:15 97.7 70 16 111/62 98 01/27/17 06:00 70 01/27/17 05:00 64 01/27/17 04:00 72 01/27/17 03:00 96.7 76 22 103/60 95 01/27/17 03:00 68 01/27/17 02:00 84 01/27/17 01:00 84 01/27/17 00:00 86 01/26/17 23:00 97.1 84 24 95/63 99 01/26/17 23:00 83 01/26/17 22:00 94 01/26/17 21:00 110 01/26/17 20:50 96 Nasal Cannula 2.00 01/26/17 20:00 114 01/26/17 19:26 114 01/26/17 19:00 95.7 112 26 84/60 97 01/26/17 18:40 18 01/26/17 18:00 105 01/26/17 17:00 114 01/26/17 16:00 116 01/26/17 15:00 97.8 111 20 95/71 96 01/26/17 15:00 105 01/26/17 14:31 96 Nasal Cannula 2.00 Intake & Output 01/27/17 01/27/17 07:00 19:00 Intake Total 240 ml Output Total 100 ml Balance 140 ml Intake Oral 240 ml Output Urine Total 100 ml # Bowel Movements 1 . Physical Exam CONSTITUTIONAL/GENERAL: This is a frail, elderly female patient with significant weakness and fatigue. TUBES/LINES/DRAINS: PIV, SCD, Cavanaugh catheter, nasal cannula SKIN: No jaundice, rashes, or lesions. +few large bullous vesicles rt forearm Skin temperature appropriate. Not diaphoretic. BLE edematous and weeping. CARDIOVASCULAR: Irregularly irregular. No JVD. peripheral pulses palpable RESPIRATORY/CHEST: Symmetric, unlabored respirations, NC O2. Breath sounds diminished bilaterally. GASTROINTESTINAL: Abdomen soft, non-tender, nondistended. Bowel sounds present. GENITOURINARY: Without palpable bladder distension. Cavanaugh catheter in place. NEUROLOGICAL: Awake, lethargic. Responds to brief questions with 12 word answers with prompting PSYCHIATRIC: No obvious anxiety/depression/ flat affect. . Diagnostic Tests Laboratory Laboratory Tests Test 01/25/17 01/26/17 01/27/17 01/27/17 04:26 05:30 04:40 13:06 White Blood Count 8.3 TH/MM3 9.2 TH/MM3 14.0 TH/MM3 (4.0-11.0) (4.0-11.0) (4.0-11.0) Red Blood Count 4.27 MIL/MM3 4.37 MIL/MM3 4.50 MIL/MM3 (4.00-5.30) (4.00-5.30) (4.00-5.30) Hemoglobin 13.1 GM/DL 13.6 GM/DL 13.6 GM/DL (11.6-15.3) (11.6-15.3) (11.6-15.3) Hematocrit 40.1 % 41.7 % 44.3 % (35.0-46.0) (35.0-46.0) (35.0-46.0) Mean Corpuscular Volume 94.0 FL 95.5 FL 98.4 FL (80.0-100.0) (80.0-100.0) (80.0-100.0) Mean Corpuscular Hemoglobin 30.6 PG 31.1 PG 30.2 PG (27.0-34.0) (27.0-34.0) (27.0-34.0) Mean Corpuscular Hemoglobin 32.5 % 32.5 % 30.7 % Concent (32.0-36.0) (32.0-36.0) (32.0-36.0) Red Cell Distribution Width 21.0 % 22.5 % 24.0 % (11.6-17.2) (11.6-17.2) (11.6-17.2) Platelet Count 113 TH/MM3 102 TH/MM3 83 TH/MM3 (150-450) (150-450) (150-450) Mean Platelet Volume 8.3 FL 8.7 FL 9.3 FL (7.0-11.0) (7.0-11.0) (7.0-11.0) Sodium Level 133 MEQ/L 132 MEQ/L 128 MEQ/L 127 MEQ/L (136-145) (136-145) (136-145) (136-145) Potassium Level 4.4 MEQ/L 4.6 MEQ/L 6.1 MEQ/L 5.8 MEQ/L (3.5-5.1) (3.5-5.1) (3.5-5.1) (3.5-5.1) Chloride Level 93 MEQ/L 91 MEQ/L 86 MEQ/L 89 MEQ/L (98-107) (98-107) (98-107) (98-107) Carbon Dioxide Level 30.0 MEQ/L 28.4 MEQ/L 14.5 MEQ/L 17.0 MEQ/L (21.0-32.0) (21.0-32.0) (21.0-32.0) (21.0-32.0) Anion Gap 10 MEQ/L (5-15) 13 MEQ/L (5-15) 28 MEQ/L (5-15) 21 MEQ/L (5-15) Blood Urea Nitrogen 75 MG/DL (7-18) 71 MG/DL (7-18) 90 MG/DL (7-18) 98 MG/DL (7- 18) Creatinine 2.05 MG/DL 1.93 MG/DL 3.07 MG/DL 3.22 MG/DL (0.50-1.00) (0.50-1.00) (0.50-1.00) (0.50-1.00) Estimat Glomerular Filtration 29 ML/MIN (>89) 31 ML/MIN (>89) 18 ML/MIN (>89) 17 ML/MIN (>89) Rate Random Glucose 158 MG/DL 169 MG/DL 138 MG/DL 199 MG/DL (74-106) (74-106) (74-106) (74-106) Calcium Level 8.7 MG/DL 8.8 MG/DL 9.7 MG/DL 9.2 MG/DL (8.5-10.1) (8.5-10.1) (8.5-10.1) (8.5-10.1) Phosphorus Level 6.9 MG/DL (2.5-4.9) Magnesium Level 2.6 MG/DL (1.5-2.5) Total Bilirubin 2.8 MG/DL (0.2-1.0) Aspartate Amino Transf 123 U/L (15-37) (AST/SGOT) Alanine Aminotransferase 259 U/L (10-53) (ALT/SGPT) Alkaline Phosphatase 273 U/L (45-117) Total Creatine Kinase 116 U/L (26-192) Total Protein 6.6 GM/DL (6.4-8.2) Albumin 2.8 GM/DL (3.4-5.0) B-Hydroxybutyrate 0.89 MMOL/L (0.00-0.39) . Result Diagram: 01/27/17 0440 01/27/17 1306 Imaging Last 72 hours Impressions Chest X-Ray 01/26/17 0000 Signed Impressions: Service Date/Time: Thursday, January 26, 2017 12:34 - CONCLUSION: 1. Moderate bilateral pleural effusions with associated lower lobe airspace disease. 2. Stable enlargement of the cardiac silhouette. Alon Montenegro MD . Assessment and Plan Disease Oriented Problem List: (1) Atrial flutter (2) Cardiomyopathy (3) Cardiac LV ejection fraction 10-20% (4) Acute kidney injury (5) History of CVA (cerebrovascular accident) (6) Elevated troponin (7) Transaminitis (8) Hypertension (9) CHF (congestive heart failure) (10) COPD (chronic obstructive pulmonary disease) (11) Severe sepsis with acute organ dysfunction Symptom Scale: (1) Poor appetite (2) Debility (3) Confusion (4) Pain Pertinent Non-Medical Issues Psychosocial: Patient is single and lives alone in [place]. She has a high school education. 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 Patient had 2 daughters and 1 son; her son had ESRD and is . Spiritual: Confucianist sanya Legal: Per [place] statutes, in the absence of written advanced directives healthcare proxy decision-making falls to the children's 2 adult daughters, Triny and Lissette Ethical issues impacting care: No known ethical issues impacting care. . Important Contacts Lissette Salinas, daughter: [phone] Triny Amor, daughter: [phone] . Prognosis Ms. Salinas is a 71 yo female with a complicated medical history that includes severe cardiomyopathy with EF 20%. Status post CVA with right-sided hemiparesis and aphasia and October,. The patient has experienced an acute decline, hospitalized 5 times in the past 3 months. Patient is deconditioned with ongoing complications. Currently hospitalized with and multi-system organ dysfunction. Prognosis is poor. . Code Status: Alternative Code (ACLS medications only) Plan * ALTERNATE CODE- ACLS medications only * Decision-making: Per [place] statutes, in the absence of written advanced directives healthcare proxy decision-making falls to the patient's 2 adult daughters (Triny and Lissette). * Palliative care meet with family at patient's bedside, having ongoing conversations related to the patient worsening clinical condition. Discussed aggressive versus comfort focused care. Patient's daughter states she and the family have decided they would like to take their mom home with hospice services to focus on her comfort. Hospice consult placed; discussed with patient 's nurse and hospice admission nurse (Bety). * Pacemaker/AICD deactivated 01/22/2017 * Symptom managementdebility: Patient has a complex medical history; she has experienced a recent decline as evidenced by 5 hospitalizations in the past 3 months. Patient was transferred to rehabilitation after her most recent hospitalization in 11/2016, and her functional status reportedly improved. Having ongoing setbacks and complications, now hospitalized with sepsis and multiorgan dysfunction. Prognosis is poor. Physical therapy and speech therapy are following; OT following, patient able to participate some in self- care, very weak. * Symptom managementpain: Patient's daughter reports the patient' having intermittent pain. Possible contributing factors include impaired skin integrity , impaired circulation, immobility, bedbound status, invasiveness lines, cachexia. Current orders for PRN [place] (5-325mg tab) q4 hours PO for pain rated 15 and PRN Morphine 2 mg IV q2 hours for pain rated 610. 24-hour dosing requirements: [place] 5325mg x 2 Palliative care will continue to monitor PRN requirements and make recommendations as indicated. * Symptom managementpoor appetite: Appetite remains poor < 50%, despite appetite stimulant. Speech therapy continues to follow. Megace started on 01/18. Patient's daughter is attempting to feed the patient who is pocketing food, requiring ongoing encouragement and verbal prompts. LBM: 01/27/2017luanne fernandez. * Palliative care will continue to follow this patient throughout her hospitalization to establish trust, assist with symptom management and clarification of medical treatment goals. Attestation To help prompt me to consider important information that might be impacting today's encounter and assessment, information from prior notes written by myself or my colleagues may have been "brought forward" into today's note. My signature on this note, however, is an attestation that I personally performed the exam, history, and/or decision-making noted today, and, unless otherwise indicated, the interactions with patient, family, and staff as well as the review of records all occurred today. I also attest that the listed assessment and stated plan reflect my best clinical judgment today based on the combination of historical information, prior notes, and today's exam/ interactions. When time spent is documented, it refers only to time spent today by the signer, or if indicated, combined time spent today by collaborating physician/nurse practitioner. . Pita Mccartney Jan 27, 2017 14:41
[2017-01-27] MEDS ORDERED: THIAMINE HCL 100 MG TAB PO ONE (15:00)
--- NOTE | 2017-01-27 15:15 | HHI.GIFU ---
Subjective Remarks Resting in bed. Poor appetite today. Palliative care was in, hospice consult was placed. Objective Vitals I&O Vital Signs Date Time Temp Pulse Resp B/P Pulse Ox O2 Delivery O2 Flow Rate FiO2 01/27/17 11:00 97.7 112 28 117/63 95 01/27/17 10:34 93 Nasal Cannula 2.00 01/27/17 08:15 97.7 70 16 111/62 98 01/27/17 06:00 70 01/27/17 05:00 64 01/27/17 04:00 72 01/27/17 03:00 96.7 76 22 103/60 95 01/27/17 03:00 68 01/27/17 02:00 84 01/27/17 01:00 84 01/27/17 00:00 86 01/26/17 23:00 97.1 84 24 95/63 99 01/26/17 23:00 83 01/26/17 22:00 94 01/26/17 21:00 110 01/26/17 20:50 96 Nasal Cannula 2.00 01/26/17 20:00 114 01/26/17 19:26 114 01/26/17 19:00 95.7 112 26 84/60 97 01/26/17 18:40 18 01/26/17 18:00 105 01/26/17 17:00 114 01/26/17 16:00 116 I/O 01/26/17 01/26/17 01/26/17 01/27/17 01/27/17 01/27/17 07:00 15:00 23:00 07:00 15:00 23:00 Intake Total 480 ml 480 ml 240 ml Output Total 650 ml 150 ml 100 ml Balance -170 ml 330 ml 140 ml Intake Oral 480 ml 480 ml 240 ml Output Urine Total 650 ml 150 ml 100 ml # Bowel Movements 1 1 Laboratory Laboratory Tests Test 01/27/17 01/27/17 04:40 13:06 White Blood Count 14.0 Red Blood Count 4.50 Hemoglobin 13.6 Hematocrit 44.3 Mean Corpuscular Volume 98.4 Mean Corpuscular Hemoglobin 30.2 Mean Corpuscular Hemoglobin 30.7 Concent Red Cell Distribution Width 24.0 Platelet Count 83 Mean Platelet Volume 9.3 Sodium Level 128 127 Potassium Level 6.1 5.8 Chloride Level 86 89 Carbon Dioxide Level 14.5 17.0 Anion Gap 28 21 Blood Urea Nitrogen 90 98 Creatinine 3.07 3.22 Estimat Glomerular Filtration 18 17 Rate Random Glucose 138 199 Calcium Level 9.7 9.2 Phosphorus Level 6.9 Magnesium Level 2.6 Lactic Acid Level 12.2 Total Bilirubin 2.8 Aspartate Amino Transf 123 (AST/SGOT) Alanine Aminotransferase 259 (ALT/SGPT) Alkaline Phosphatase 273 Total Creatine Kinase 116 Total Protein 6.6 Albumin 2.8 B-Hydroxybutyrate 0.89 Imaging Last Impressions Chest X-Ray 01/26/17 0000 Signed Impressions: Service Date/Time: Thursday, January 26, 2017 12:34 - CONCLUSION: 1. Moderate bilateral pleural effusions with associated lower lobe airspace disease. 2. Stable enlargement of the cardiac silhouette. Alon Montenegro MD Upper Extremity Ultrasound 01/24/17 0000 Signed Impressions: Service Date/Time: Tuesday, January 24, 2017 08:53 - CONCLUSION: Normal examination for a patient of this age. Kip Arriaga MD Liver Ultrasound 01/22/17 0000 Signed Impressions: Service Date/Time: Sunday, January 22, 2017 14:51 - CONCLUSION: 1. Dilatation the common bile duct likely reflecting a reservoir following cholecystectomy. This could be correlated clinically and with the patient's laboratory biliary status. 2. Bilateral pleural effusions. Mello Oglesby MD Head CT 01/17/17 0000 Signed Impressions: Service Date/Time: Tuesday, January 17, 2017 17:13 - CONCLUSION: Negative for an acute process. Herve Fam MD FACR Chest CT 01/17/17 0000 Signed Impressions: Service Date/Time: Tuesday, January 17, 2017 17:18 - CONCLUSION: Cardiomegaly. Small right effusion. Mild basilar atelectasis. Mello Cameron MD Abdomen/Pelvis CT 01/17/17 0000 Signed Impressions: Service Date/Time: Tuesday, January 17, 2017 17:18 - CONCLUSION: Massive cardiomegaly without pericardial effusion. Minimal failure with small right pleural effusion and trace ascites. There is no gastric distention. Herve Fam MD FACR Physical Exam HEENT: Normocephalic, normocephalic CHEST: CTA, diminished CARDIAC: Irregular- ABDOMEN: +BS, soft, mildly distended, nontender; no hepatosplenomegaly EXTREMITIES: No clubbing, cyanosis, or edema. 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 Per daughter, no prior history of liver disease in patient or other family members and denies any history of hepatitis, cirrhosis, or alcohol use. S/P cholecystectomy. Her daughter reports that she did have a bout of nausea and vomiting the night before this hospitalization, but has not had any further episodes. The patient denies any abdominal pain. Abdomen/Pelvis CT (01/17/17)----> Massive cardiomegaly without pericardial effusion. Minimal failure with small right pleural effusion and trace ascites. There is no gastric distention. Liver Ultrasound (01/22/17)----> 1. Dilatation the common bile duct likely reflecting a reservoir following cholecystectomy. This could be correlated clinically and with the patient's laboratory biliary status. 2. Bilateral pleural effusions. Hepatitis profile negative. KERI negative. ASMA negative, AMA < 20.0. This is most likely multifactorial, secondary to hepatic congestion, sepsis. LFt with increase today, - Poor nutrition. S/P Calorie count (01/24)-----> Inadequate po intake to meet nutritional needs. Glucerna TID and if no improvement, then consider TF. She was doing better with eating yesterday, but has not had much today. Hospice consult - Abdominal distention. Resolved. CT as above. + BM's. - Sepsis/Bacteremia. Cx with bacillus species, not anthracis. WBC 14.0. Off abx. ID following. - CAD, Chronic systolic heart failure with EF, Hx aflutter (S/P ablation), elevated troponin. Pt had run of Vtach on 01/21. CCM/Cardiology following. A sodium bicarbonate infusion was given. No defibrillation required. The patient then converted into atrial fibrillation with RVR. She was started on Amiodarone. HR stable. AICD was interrogated and turned off. - PREMA. Creat 3.22 - HTN, Hyperlipidemia, COPD, Small right pleural effusion, DM per primary - Hx embolic CVA/left basal ganglia. s/p angiogram and was found to have a large clot at the ICA, M1 segment, s/p embolectomy with confucianism of antegrade flow on 10/25/16 PLAN: - Diet as tolerated, ensure - Megace - Miralax - Monitor LFTs - Avoid hepatotoxic meds - Palliative care following, hospice has been consulted. Will await their evaluation prior to discussing further nutrition PPN vs TPN vs NGT vs PEG. - Further recommendations to follow based on results of above - Pt was seen and examined by myself and Dr. José and this note was written on his behalf Hannah Duque Jan 27, 2017 15:15
[2017-01-27] MEDS ORDERED: CHLOROTHIAZIDE SOD 500 MG VIAL IV ONE (17:00)
[2017-01-27] MEDS: METOPROLOL TARTRATE 5 MG/5 ML VIAL IV PUSH SCH ×2 (17:39→23:15)
--- NOTE | 2017-01-27 17:47 | MB ---
cc: JULIO TOSCANO M.D. DATE OF CONSULTATION: 01/27/2017. REASON FOR CONSULTATION: Assess need for AICD settings adjustment. HISTORY OF PRESENT ILLNESS: Limited history is obtainable from the patient. History is obtained from her daughter who is at bedside and from extensive medical records. She is a 71-year-old -[place] female, followed in our office by Dr. Maverick Dye, with a history of multiple medical problems including severe predominantly nonischemic cardiomyopathy, chronic renal insufficiency, diabetes, asthma, hypertension, paroxysmal atrial flutter, CVA who was brought to the hospital with mental status changes, worsening generalized weakness, fatigue, poor oral intake. The patient seems to deny any current chest pain, shortness of breath, dizziness, palpitations. PAST MEDICAL HISTORY: 1. Asthma. 2. Severe predominantly nonischemic cardiomyopathy. Her last echo 01/18/2017 showed ejection fraction of 20-25%. 3. Coronary artery disease status post stent of the mid LAD 05/29/[address] Maverick Dye using a 4.5 x 20-mm Rebel stent. Her last heart catheterization was 12/17/2015 showing a 70% ostial stenosis in a jailed diagonal, 85% mid LAD lesion. She was recommended medical therapy due to her severe left ventricular dysfunction and extremely ectatic vessels. 4. Status post [facility] dual-chamber AICD implantation 05/12/07 Initially done for an electrophysiology study which was positive for ventricular tachycardia. She underwent upgrade of the device to a biventricular system 06/01/12 by placement of a left ventricular epicardial lead. 5. Paroxysmal atrial flutter status post radiofrequency ablation 10/15/16, although she has had continued recurrences of atrial tachycardia / atrial flutter. 6. History of CVA 10/2016 at which time she underwent embolectomy of a large thrombus burden at the left internal carotid artery terminus / M1 division. 7. Diabetes. 8. Hypertension. 9. Chronic renal insufficiency. HER CURRENT CARDIAC MEDICATIONS: 1. Amiodarone 400 milligrams p.o. q. 12 hours. 2. Bumetanide 2 milligrams p.o. twice a day. 3. Aspirin 81 milligrams p.o. daily. ALLERGIES: NO KNOWN DRUG ALLERGIES. FAMILY HISTORY: Noncontributory. SOCIAL HISTORY: The patient has no history of alcohol or tobacco use. REVIEW OF SYSTEMS: Review of systems as in the history of present illness otherwise very difficult to elicit. PHYSICAL EXAMINATION: VITAL SIGNS: On physical examination, her blood pressure is 117/63 with a pulse of 110, respirations 28. GENERAL: In general, she is a well-developed, well-nourished -[place] female in no acute distress. HEAD, EYES, EARS, NOSE, THROAT: Jugular venous distention is seen to the mandible. Carotid pulses are 2+ bilaterally and without bruits. CHEST: Examination of the chest reveals markedly diminished breath sounds at the bases. CARDIAC: On cardiac examination, she has a tachycardic regular rhythm without definite S4 or murmur. There appears to be an S3 gallop. ABDOMEN: On abdominal examination, she has a soft nontender abdomen. Bowel sounds are present. There is no definite hepatosplenomegaly. EXTREMITIES: Examination of the extremities reveals no clubbing or cyanosis. There is a 1 to 2+ pre-tibial edema. EKGS: EKG shows ventricular paced rhythm with probable underlying atrial flutter. IMAGING STUDIES: Chest x-ray shows moderate bilateral pleural effusions. LABORATORY DATA: WBCs 14.0, hemoglobin 13.6, platelet count 83,000. Potassium 5.8, BUN 98, creatinine 3.22, AST 123, ALT 259. INR 1.6. IMPRESSION: 71-year-old -[place] female with a history of multiple medical problems including severe predominantly nonischemic cardiomyopathy with ejection fraction of 20% to 25%, history of coronary artery disease with history of percutaneous intervention on the left anterior descending in 2015, history of biventricular AICD implant, CVA, diabetes, chronic renal insufficiency. I have been asked to see the patient for potential adjustments in her AICD settings. At this time, she appears in either atrial tachycardia or atrial flutter with a rapid ventricular response. Therefore she is not getting biventricular pacing benefit. Unfortunately her prognosis appears to be extremely poor. She has acute on chronic renal insufficiency, liver insufficiency, worsened thrombocytopenia. Exam and chest x-ray also suggest at least moderate congestive heart failure. She does have an alternative code status, and the defibrillator portion of her biventricular AICD has been deactivated. RECOMMENDATIONS: 1. Unfortunately there is not much to offer from a cardiac standpoint. Would try to administer beta vimal therapy as her blood pressures tolerate to reduce the heart rate. 2. Consider changing her diuretic therapy to intravenous administration. 3. Would stop the amiodarone, particularly with her hepatic insufficiency. 4. Would consider changing her code status to a full no code given her very poor prognosis. MD OCTAVIA Johnson/VIOLA /3:51 PM /5:17 PM ARPAN
[2017-01-27 18:14] LABS: BICARBONATE 18.4 MEQ/L (21.0-32.0)
[2017-01-27 18:16] LABS: POTASSIUM 5.9 MEQ/L (3.5-5.1)
--- NOTE | 2017-01-27 22:43 | HHI.PR ---
Subjective Remarks Patient seen this morning around 11 AM. She denies any pain. Gross fluid overload on exam. Discussed fluid overload with family. Appreciate cardiology assistance. Discussed with daughter at bedside.this morning daughter at bedside requests everything be done Objective Vital Signs Date Time Temp Pulse Resp B/P Pulse Ox O2 Delivery O2 Flow Rate FiO2 01/27/17 20:00 Nasal Cannula 2.00 01/27/17 20:00 98.6 88 20 107/59 95 01/27/17 19:22 18 01/27/17 18:00 96 01/27/17 17:00 108 01/27/17 16:00 112 01/27/17 15:00 97.7 104 25 112/72 96 01/27/17 15:00 111 01/27/17 14:00 100 01/27/17 13:00 108 01/27/17 12:00 112 01/27/17 11:00 97.7 112 28 117/63 95 01/27/17 11:00 110 01/27/17 10:34 93 Nasal Cannula 2.00 01/27/17 10:00 102 01/27/17 09:00 70 01/27/17 08:15 97.7 70 16 111/62 98 01/27/17 08:00 68 01/27/17 07:00 72 01/27/17 06:00 70 01/27/17 05:00 64 01/27/17 04:00 72 01/27/17 03:00 96.7 76 22 103/60 95 01/27/17 03:00 68 01/27/17 02:00 84 01/27/17 01:00 84 01/27/17 00:00 86 01/26/17 23:00 97.1 84 24 95/63 99 01/26/17 23:00 83 I/O 01/26/17 01/26/17 01/26/17 01/27/17 01/27/17 01/27/17 07:00 15:00 23:00 07:00 15:00 23:00 Intake Total 480 ml 480 ml 240 ml 200 ml Output Total 650 ml 150 ml 100 ml 150 ml Balance -170 ml 330 ml 140 ml 50 ml Intake Oral 480 ml 480 ml 240 ml 200 ml Output Urine Total 650 ml 150 ml 100 ml 150 ml # Bowel Movements 1 1 1 Result Diagram: 01/27/17 0440 01/27/17 1700 Objective Remarks GENERAL: patient lying in bed. SKIN: Warm and dry. HEAD: Normocephalic. EYES: No scleral icterus. No injection or drainage. NECK: Supple, trachea midline. marked JVD. CARDIOVASCULAR: slightly tachycardic RESPIRATORY: Breath sounds equal bilaterally. No accessory muscle use. GASTROINTESTINAL: Abdomen soft, non-tender, nondistended. MUSCULOSKELETAL: No cyanosis, or edema. BACK: Nontender without obvious deformity. No CVA tenderness. A/P Assessment and Plan ==== 01/27/17 -Hypertension. Wide QRS, atrial fibrillation not benefiting from pacer. Appreciate cardiology assistance. continue withdiuresis. IV Lasix and diuril ordered.continue to monitor. //Lactic acidosis. Secondary to CHF exacerbation, poor perfusion. Although there is some leukocytosis, no sign of infection.give thiamine and monitor. "71yF with multiple acute on chronic medical problems, now with worsening oliguric PREMA. Cr worsening today with restarting bumex and d/c fluids, but clinically appears volume overloaded, she continues with all her medical problems, volume overload, pneumonia, heart failure. Still unlikely to recover. at family's request, continuing aggressive care. poor prognosis. however, no indication for ICU admission at this time, and she can be equally well taken care of out of ICU. 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 Depression Failure to thrive Insomnia Lethargy Hold Zoloft 50 mg by mouth daily for depression secondary to patient's current lethargy Holding Restoril 7.5 mg daily at bedtime as home medication for insomnia Continue Megace 400 mg by mouth daily for failure to thrive CT Brain 01/17 revealed no acute intracranial findings Avoid all sedating type medications, and correction of hypoglycemia Ammonia persistently elevated, continue lactulose CV: Severe sepsis with multisystem organ failure Chronic systolic heart failure ejection fraction 20% History of atrial flutter status post ablation 10/[address] Velazquez Hypertension Dyslipidemia Lactic acidosis is likely cardiac etiology Status post AICD placement-deactivated 01/21 Elevated troponin H/O NE Holding Zocor 40 mg by mouth daily for dyslipidemia. Resume when clinically indicated Holding Bumex 2 mg by mouth twice a day and spironolactone 25 mg at night due to hypotension and acute kidney injury.. 01/20 Lactate 2.3 Echocardiogram 01/18-ejection fraction 5%. Possible basal posterior and apical kinesis and severe hypokinesis of all other segments Dr. Olson, [employer] man- signed off 01/21 Continue aspirin 81 mg by mouth daily 01/20 BNP > 5000 01/21 episode of V. tach was self resolution. A. fib RVR amiodarone infusion initiated, will restart Metoprolol when clinically improvement in BP. 01/24 Started on amiodarone PO Resp: History COPD Left pleural effusion by cliical exam vs atelectasis Nasal cannula to maintain saturations greater than equal to 92%, Repeat CXR today. if goals- if aggressive with get an US guided thoracentesis if + effusion Incentive spirometry while awake Duo nebs every 6 hours and albuterol every 2 hours when necessary dyspnea CT chest 01/08 revealed massive cardiomegaly, small right pleural effusion 01/18 Metabolic acidosis was noted patient was placed on bicarbonate infusion, anion gap improved, discontinued on 01/19, restarted 01/21 01/23 bicarbonate level 34, discontinue sodium bicarbonate infusion GI: Nausea/vomiting-resolved Transaminitis 1800 ADA diet Protonix for GI prophylaxis PeriColace for bowel regimen On Megace for anorexia. CT abdomen/pelvis revealed no signs of bowel obstruction. 01/21 liver enzymes continue to increase, with severe hypoglycemia , shock liver ? 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 Noted 5 kg wt gain since admission. 01/24: restarted bumex per nephrology. Heme: Leukocytosis-resolved Elevated PT/INR and PTT Monitor CBC daily. Follow trends Holding Eliquis 5 mg BID, INR 1.3 01/17 fibrinogen WNL ID: Severe sepsis source pneumonia aspiration? UTI? Zosyn, vancomycin discontinued 08/26 worsening creatinine 01/21 ID following- Dr. Johnson, all antibiotics discontinued 01/22 per ID Pertinent cultures - Blood cultures 2 01/17 -Bacillus - Urine culture 01/17 - pending Sputum culture-pending influenza A & B-negative FEN: Hyponatremia Hyperkalemia-resolved Hyper-magnesium Hyperphosphatemia 01/21 IVF D5NS @42cc/hr Received hyperkalemia protocol in ED. 01/23 sodium bicarbonate discontinued MSK: PT evaluate and treat 01/21 Bilateral upper arm edema-ultrasound bilateral lower extremities negative Access - Utilize peripheral IV. Change PIV's 01/21 Central line if indicated Prophylaxis - GI -Protonix - DVT - SCD/holding pharmacological prophylaxis with eliquis is due to acute kidney injury creatinine greater than 1.5 Family discussions: 01/22 V. tach episode, family discussion with palliative care medicine. It was decided alternate CODE STATUS be initiated, ACLS drugs only. AICD was interrogated and deactivated. Possible plan for transfer back to hospice, will consult nephrology for any additional recommendations and further discussion with palliative medicine regarding disposition. 01/23: Further interventions planned. Consult with palliative care medicine regarding transition back to hospice care on Tuesday. Patient is not a candidate for dialysis per nephrology, Dr. Cunningham, no further interventions planned. 01/24: palliative met and family continues to want aggressive medical care. Discharge Planning pending hospice evaluation. Jesus Alberto Alanis MD Jan 27, 2017 22:43
[2017-01-28] VITALS (27 sets, daily range): BP systolic 85–107; BP diastolic 56–70; PULSE 70–126; RESP 18–20; TEMP 97.4–97.8; O2SAT 93–100
[2017-01-28] MEDS: CHLORHEXIDINE GLUCONATE 2 % 1 PACK (2 CLOTHS) TOP SCH (04:00)
[2017-01-28] MEDS: METOPROLOL TARTRATE 5 MG/5 ML VIAL IV PUSH SCH ×3 (05:00→18:00)
[2017-01-28 05:05] LABS: HEMATOCRIT 39.5 % (35.0-46.0); MEAN CORPUSCULAR HEMOGLOBIN 30.7 PG (27.0-34.0); MEAN CORPUSCULAR HGB CONC 31.9 % (32.0-36.0); PLATELET COUNT 60 TH/MM3 (150-450); RED BLOOD COUNT 4.11 MIL/MM3 (4.00-5.30); RED CELL DISTRIBUTION WIDTH 24.2 % (11.6-17.2); WHITE BLOOD COUNT 10.5 TH/MM3 (4.0-11.0)
[2017-01-28 05:06] LABS: REVIEW FLAG FINAL
[2017-01-28 05:39] LABS: BICARBONATE 27.4 MEQ/L (21.0-32.0); POTASSIUM 4.7 MEQ/L (3.5-5.1)
[2017-01-28] MEDS: BUMETANIDE 1 MG TAB PO SCH (06:45)
[2017-01-28] MEDS: INSULIN NovoLIN REGULAR SUPPLEMENTAL SCALE SQ SCH ×3 (06:49→18:00)
--- NOTE | 2017-01-28 08:04 | PD.CARD.PN ---
Subjective Subjective Remarks Somnolent. Resting comfortably. Objective Medications Item Value Date Time Metoprolol 5 mg 01/27/17 1700 Tartrate Q6H/IV PUSH (Lopressor Inj) Bumetanide 2 mg 01/20/17 1400 (Bumetanide) BID@06,14/PO 01/28/17 0645 Aspirin 81 mg 01/18/17 0900 (Aspirin Chew) DAILY/CHEW 01/27/17 0926 Vital Signs / I&O Vital Signs Date Time Temp Pulse Resp B/P Pulse Ox O2 Delivery O2 Flow Rate FiO2 01/28/17 06:00 84 01/28/17 05:00 84 01/28/17 04:00 92 01/28/17 04:00 Nasal Cannula 2.00 01/28/17 04:00 97.6 94 20 91/65 93 01/28/17 03:00 90 01/28/17 02:00 94 01/28/17 01:00 102 01/28/17 00:00 98 01/28/17 00:00 97.4 90 20 94/56 95 01/27/17 23:00 94 20 106/65 97 01/27/17 23:00 102 01/27/17 22:00 98 01/27/17 21:00 100 01/27/17 20:00 Nasal Cannula 2.00 01/27/17 20:00 98.6 88 20 107/59 95 01/27/17 20:00 98 01/27/17 19:22 18 01/27/17 19:17 Nasal Cannula 2.00 01/27/17 19:00 96 01/27/17 18:00 96 01/27/17 17:00 108 01/27/17 16:00 112 01/27/17 15:00 97.7 104 25 112/72 96 01/27/17 15:00 111 01/27/17 14:00 100 01/27/17 13:00 108 01/27/17 12:00 112 01/27/17 11:00 97.7 112 28 117/63 95 01/27/17 11:00 110 01/27/17 10:34 93 Nasal Cannula 2.00 01/27/17 10:00 102 01/27/17 09:00 70 01/27/17 08:15 97.7 70 16 111/62 98 01/27/17 08:00 68 I/O 01/27/17 01/27/17 01/27/17 01/28/17 01/28/17 01/28/17 07:00 15:00 23:00 07:00 15:00 23:00 Intake Total 240 ml 200 ml Output Total 100 ml 150 ml 650 ml Balance 140 ml 50 ml -650 ml Intake Oral 240 ml 200 ml Output Urine Total 100 ml 150 ml 650 ml # Bowel Movements 1 1 1 Physical Exam GENERAL: Well developed, well nourished. No acute distress. HEENT: Jugular venous pressure is normal. CHEST: Diminished breath sounds bases. CARDIAC: Regular rate and rhythm without S3, S4, or murmur. ABDOMEN: Soft, nontender, no hepatosplenomegaly. Bowel sounds present. EXTREMITIES: No clubbing, cyanosis. 1-2 + pretibial edema. Laboratory Laboratory Tests Test 01/27/17 01/27/17 01/28/17 13:06 17:00 04:43 Sodium Level 127 MEQ/L 127 MEQ/L 129 MEQ/L Potassium Level 5.8 MEQ/L 5.9 MEQ/L 4.7 MEQ/L Chloride Level 89 MEQ/L 86 MEQ/L 89 MEQ/L Carbon Dioxide Level 17.0 MEQ/L 18.4 MEQ/L 27.4 MEQ/L Anion Gap 21 MEQ/L 23 MEQ/L 13 MEQ/L Blood Urea Nitrogen 98 MG/DL 101 MG/DL 110 MG/DL Creatinine 3.22 MG/DL 3.27 MG/DL 3.28 MG/DL Estimat Glomerular Filtration 17 ML/MIN 17 ML/MIN 17 ML/MIN Rate Random Glucose 199 MG/DL 230 MG/DL 197 MG/DL Lactic Acid Level 12.2 mmol/L Calcium Level 9.2 MG/DL 9.3 MG/DL 8.9 MG/DL Total Bilirubin 2.8 MG/DL Aspartate Amino Transf 123 U/L (AST/SGOT) Alanine Aminotransferase 259 U/L (ALT/SGPT) Alkaline Phosphatase 273 U/L Total Creatine Kinase 116 U/L Total Protein 6.6 GM/DL Albumin 2.8 GM/DL B-Hydroxybutyrate 0.89 MMOL/L White Blood Count 10.5 TH/MM3 Red Blood Count 4.11 MIL/MM3 Hemoglobin 12.6 GM/DL Hematocrit 39.5 % Mean Corpuscular Volume 96.0 FL Mean Corpuscular Hemoglobin 30.7 PG Mean Corpuscular Hemoglobin 31.9 % Concent Red Cell Distribution Width 24.2 % Platelet Count 60 TH/MM3 Mean Platelet Volume 8.8 FL Assessment and Plan Problem List: (1) Congestive heart failure Assessment and Plan: EF 20-25%. Bilateral pleural effusion, pedal edema persist by exam. No significant diuresis achieved. Renal indices increased, though stable from yesterday. REC change bumetanide to IV continue beta vimal, no RUPALI-I or ARB with her CRI HR's better today, will speak to [employer] rep about increasing back up rate on her biventricular pacer will have Dr. Donato see patient as needed over the weekend (2) Atrial flutter Assessment and Plan: Patient predominantly in atrial flutter or atrial tachycardia past few months. Patient poor candidate for anticoagulation therapy ; continues on aspirin. HR's better with IV metoprolol. Rec cont same. Amiodarone stopped yesterday given her hepatic insufficiency. (3) CAD (coronary artery disease) Assessment and Plan: Stable. No definite angina symptoms. Rec continued conservative management of her severe CAD. Code Status alternative code Problem Qualifiers (1) Congestive heart failure: Qualified Code: I50.23 - Acute on chronic systolic congestive heart failure (2) Atrial flutter: Qualified Code: I48.92 - Atrial flutter, unspecified type (3) CAD (coronary artery disease): Qualified Code: I25.10 - Coronary artery disease involving [place] coronary artery of [place] heart without angina pectoris Walt Ambrosio MD Jan 28, 2017 08:04
[2017-01-28] MEDS: DOCUSATE SODIUM 50 MG/SENNA 8.6 MG TAB PO SCH ×2 (08:11→21:02)
[2017-01-28] MEDS: MEGESTROL ACETATE SUSP 400 MG/10 ML CUP PO SCH ×2 (08:11→18:00)
[2017-01-28] MEDS: PANTOPRAZOLE SODIUM 40 MG VIAL IV SCH (08:11)
[2017-01-28] MEDS: ASPIRIN 81 MG CHEW TAB CHEW SCH (08:11)
[2017-01-28] MEDS: MULTIVITAMIN TAB PO SCH (08:11)
[2017-01-28] MEDS: POLYETHYLENE GLYCOL 17 GM PKG PO SCH (08:12)
[2017-01-28] MEDS: SODIUM CHLORIDE 0.9% FLUSH 10 ML FLUSH IV FLUSH SCH ×2 (08:12→21:03)
[2017-01-28] MEDS: ARTIFICIAL TEARS OPTH SOLN 15 ML BTL EACH EYE SCH ×3 (08:23→18:00)
[2017-01-28] MEDS: BUMETANIDE INJ 1 MG/4 ML VIAL IV PUSH SCH ×2 (08:24→18:00)
[2017-01-28] MEDS: LACTULOSE SYRUP 20 GM/30 ML CUP PO SCH (09:00)
[2017-01-28] MEDS ORDERED: CHLOROTHIAZIDE SOD 500 MG VIAL IV ONE (10:45)
--- NOTE | 2017-01-28 14:09 | HHI.NPPN ---
Subjective General Problems: Hypertension Renal Failure: Acute Interval History She is less responsive today. Excellent urine output. Creatinine has stabilized. She may be transferred to hospice today. Additional Remarks (Dalia Almaguer) Review of Systems General Constitutional: Fatigue (Dalia Almaguer) Cardiovascular Cardiac: Edema (Dalia Almaguer) Skin Skin: Lesions (Dalia Almaguer) Objective Data Data 01/27/17 01/28/17 19:00 07:00 Intake Total 200 ml Output Total 150 ml 650 ml Balance 50 ml -650 ml Intake Oral 200 ml Output Urine Total 150 ml 650 ml # Bowel Movements 1 1 Vital Signs Date Time Temp Pulse Resp B/P Pulse Ox O2 Delivery O2 Flow Rate FiO2 01/28/17 13:51 93 01/28/17 12:26 90 01/28/17 11:00 91 01/28/17 11:00 97.4 90 18 85/58 97 01/28/17 10:12 95 01/28/17 10:04 95 Nasal Cannula 2.00 01/28/17 09:00 88 01/28/17 08:00 84 01/28/17 07:00 70 01/28/17 07:00 Nasal Cannula 2.00 01/28/17 07:00 97.8 88 20 97/70 100 01/28/17 06:00 84 01/28/17 05:00 84 01/28/17 04:00 92 01/28/17 04:00 Nasal Cannula 2.00 01/28/17 04:00 97.6 94 20 91/65 93 01/28/17 03:00 90 01/28/17 02:00 94 01/28/17 01:00 102 01/28/17 00:00 98 01/28/17 00:00 97.4 90 20 94/56 95 01/27/17 23:00 94 20 106/65 97 01/27/17 23:00 102 01/27/17 22:00 98 01/27/17 21:00 100 01/27/17 20:00 Nasal Cannula 2.00 01/27/17 20:00 98.6 88 20 107/59 95 01/27/17 20:00 98 01/27/17 19:22 18 01/27/17 19:17 Nasal Cannula 2.00 01/27/17 19:00 96 01/27/17 18:00 96 01/27/17 17:00 108 01/27/17 16:00 112 01/27/17 15:00 97.7 104 25 112/72 96 01/27/17 15:00 111 (Dalia Almaguer) -: 01/28/17 0443 01/28/17 0443 Tubes & Lines: Cavanaugh (Dalia Almaguer) Physical Exam General Appearance: No Acute Distress, Comfortable Appearance Remarks frail appearing (Dalia Almaguer) Throat Throat Exam: Oral Mucosa [place] & Moist (Dalia Almaguer) Neck Neck Exam: Neck Supple, Jugular Vein Distension (Dalia Almaguer) Pulmonary Resp Exam: Decreased Bases, Diminished Breath Sounds (Dalia Almaguer) Cardiology CV Exam: Irregular, Arrhythmia, Tachycardia (Dalia Almaguer) Gastrointestinal/Abdomen GI Exam: Soft, Non-Tender, Positive Bowel Movement (Dalia Almaguer) Musculoskeletal MS Exam: Joints Intact, Normal Tone (Dalia Almaguer) Integumentary Skin Exam: Warm, Dry Skin Remarks bulla right upper extremity (Dalia Almaguer) Extremeties Extremities Exam: No Edema (Dalia Almaguer) Neurologic Neuro Exam: Stuporous, Obtunded (Dalia Almaguer) Psychiatric Psych Exam: Appropriate Responses (Dalia Almaguer) Assessment/Plan Discussed Condition With: Daughter, Relative Assessment Summary: PREMA/Acute Renal Failure, Fluid/Volume Overload, Hypertension Problem List: (1) Acute kidney injury Plan: PREMA on CKD 3: Her baseline creatinine has been near 1.6-1.8. Suspected underlying cardiorenal syndrome; PREMA may be due to ATN secondary to hypoperfusion during episodes of V-tach and hypotension renal function is poor but stabilized urine output is adequate Potassium has normalized she is to be transferred to hospice not a candidate for dialysis, discussed with family again today, due to mulitorgan system failure continue diuretics for the time being avoid IVF, nephrotoxic substances (2) CHF (congestive heart failure) Plan: EF 20-25% Bumex was resumed as she is demonstrating fluid overload her weight is up 15 kg, monitor poor prognosis (3) Afib Plan: rate controlled continue metoprolol, cardiology recommends to stop amiodarone she has AICD in place (4) Metabolic acidosis Plan: improved, monitor (5) Failure to thrive in adult Plan: Continue to follow goals of care with family recommend hospice (6) V-tach Plan: Resolved, continue to monitor cardiology has been consulted (7) Hyponatremia Plan: hypervolemic, improved slightly continue Loop diuretics (Dalia Almaguer) Plan patient was seen and examined. Continue diuresis. Not a candidate for dialysis. She may be transferred to hospice. (Ashvin England MD) Dalia Almaguer Jan 28, 2017 14:09 Ashvin England MD Jan 28, 2017 15:51
--- NOTE | 2017-01-28 18:02 | HHI.PR ---
Subjective Remarks Patient seen today around 1 PM. Somnolent. Says she feels all right. Denies any chest pain or shortness of breath. Objective Vital Signs Date Time Temp Pulse Resp B/P Pulse Ox O2 Delivery O2 Flow Rate FiO2 01/28/17 15:16 92 01/28/17 14:12 90 01/28/17 13:51 93 01/28/17 12:26 90 01/28/17 11:00 91 01/28/17 11:00 97.4 90 18 85/58 97 01/28/17 10:12 95 01/28/17 10:04 95 Nasal Cannula 2.00 01/28/17 09:00 88 01/28/17 08:00 84 01/28/17 07:00 70 01/28/17 07:00 Nasal Cannula 2.00 01/28/17 07:00 97.8 88 20 97/70 100 01/28/17 06:00 84 01/28/17 05:00 84 01/28/17 04:00 92 01/28/17 04:00 Nasal Cannula 2.00 01/28/17 04:00 97.6 94 20 91/65 93 01/28/17 03:00 90 01/28/17 02:00 94 01/28/17 01:00 102 01/28/17 00:00 98 01/28/17 00:00 97.4 90 20 94/56 95 01/27/17 23:00 94 20 106/65 97 01/27/17 23:00 102 01/27/17 22:00 98 01/27/17 21:00 100 01/27/17 20:00 Nasal Cannula 2.00 01/27/17 20:00 98.6 88 20 107/59 95 01/27/17 20:00 98 01/27/17 19:22 18 01/27/17 19:17 Nasal Cannula 2.00 01/27/17 19:00 96 01/27/17 18:00 96 I/O 01/27/17 01/27/17 01/27/17 01/28/17 01/28/17 01/28/17 07:00 15:00 23:00 07:00 15:00 23:00 Intake Total 240 ml 200 ml Output Total 100 ml 150 ml 650 ml Balance 140 ml 50 ml -650 ml Intake Oral 240 ml 200 ml Output Urine Total 100 ml 150 ml 650 ml # Bowel Movements 1 1 1 Result Diagram: 01/28/1744201/28/17442 Objective Remarks GENERAL: patient lying in bed.somnolent. Wakes up for exam. Disoriented. SKIN: Warm and dry. HEAD: Normocephalic. EYES: No scleral icterus. No injection or drainage. NECK: Supple, trachea midline. marked JVD. CARDIOVASCULAR: slightly tachycardic RESPIRATORY: Breath sounds equal bilaterally. No accessory muscle use. GASTROINTESTINAL: Abdomen soft, non-tender, nondistended. MUSCULOSKELETAL: No cyanosis, or edema. BACK: Nontender without obvious deformity. No CVA tenderness. A/P Assessment and Plan ==== 01/28/17 //CHF exacerbation-Cardiac output likely improved with beta vimal and increasing pacer rate. Appreciate cardiology assistance. //Lactic acidosis. Anion gap has resolved. Likely resolution. Repeat ordered. No leukocytosis. No sinus infection. //Acute kidney injury. Likely cardiorenal. Expect to improve with diuresis. //thrombocytopenia. Platelets 60. No signs of bleeding. Likely secondary to congestive hepatopathy. Continue to monitor. Not on heparin. "71yF with multiple acute on chronic medical problems, now with worsening oliguric PREMA. Cr worsening today with restarting bumex and d/c fluids, but clinically appears volume overloaded, she continues with all her medical problems, volume overload, pneumonia, heart failure. Still unlikely to recover. at family's request, continuing aggressive care. poor prognosis. however, no indication for ICU admission at this time, and she can be equally well taken care of out of ICU. 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 Depression Failure to thrive Insomnia Lethargy Hold Zoloft 50 mg by mouth daily for depression secondary to patient's current lethargy Holding Restoril 7.5 mg daily at bedtime as home medication for insomnia Continue Megace 400 mg by mouth daily for failure to thrive CT Brain 01/17 revealed no acute intracranial findings Avoid all sedating type medications, and correction of hypoglycemia Ammonia persistently elevated, continue lactulose CV: Severe sepsis with multisystem organ failure Chronic systolic heart failure ejection fraction 20% History of atrial flutter status post ablation 10/[address] Velazquez Hypertension Dyslipidemia Lactic acidosis is likely cardiac etiology Status post AICD placement-deactivated 01/21 Elevated troponin H/O CO Holding Zocor 40 mg by mouth daily for dyslipidemia. Resume when clinically indicated Holding Bumex 2 mg by mouth twice a day and spironolactone 25 mg at night due to hypotension and acute kidney injury.. 01/20 Lactate 2.3 Echocardiogram 01/18-ejection fraction 2024%. Possible basal posterior and apical kinesis and severe hypokinesis of all other segments Dr. Olson, [employer]- signed off 01/21 Continue aspirin 81 mg by mouth daily 01/20 BNP > 5000 01/21 episode of V. tach was self resolution. A. fib RVR amiodarone infusion initiated, will restart Metoprolol when clinically improvement in BP. 01/24 Started on amiodarone PO Resp: History COPD Left pleural effusion by cliical exam vs atelectasis Nasal cannula to maintain saturations greater than equal to 92%, Repeat CXR today. if goals- if aggressive with get an US guided thoracentesis if + effusion Incentive spirometry while awake Duo nebs every 6 hours and albuterol every 2 hours when necessary dyspnea CT chest 01/08 revealed massive cardiomegaly, small right pleural effusion 01/18 Metabolic acidosis was noted patient was placed on bicarbonate infusion, anion gap improved, discontinued on 01/19, restarted 01/21 01/23 bicarbonate level 34, discontinue sodium bicarbonate infusion GI: Nausea/vomiting-resolved Transaminitis 1800 ADA diet Protonix for GI prophylaxis PeriColace for bowel regimen On Megace for anorexia. CT abdomen/pelvis revealed no signs of bowel obstruction. 01/21 liver enzymes continue to increase, with severe hypoglycemia , shock liver ? 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 Noted 5 kg wt gain since admission. 01/24: restarted bumex per nephrology. Heme: Leukocytosis-resolved Elevated PT/INR and PTT Monitor CBC daily. Follow trends Holding Eliquis 5 mg BID, INR 1.3 01/17 fibrinogen WNL ID: Severe sepsis source pneumonia aspiration? UTI? Zosyn, vancomycin discontinued 08/26 worsening creatinine 01/21 ID following- Dr. Johnson, all antibiotics discontinued 01/22 per ID Pertinent cultures - Blood cultures 2 01/17 -Bacillus - Urine culture 01/17 - pending Sputum culture-pending influenza A & B-negative FEN: Hyponatremia Hyperkalemia-resolved Hyper-magnesium Hyperphosphatemia 01/21 IVF D5NS @42cc/hr Received hyperkalemia protocol in ED. 01/23 sodium bicarbonate discontinued MSK: PT evaluate and treat 01/21 Bilateral upper arm edema-ultrasound bilateral lower extremities negative Access - Utilize peripheral IV. Change PIV's 01/21 Central line if indicated Prophylaxis - GI -Protonix - DVT - SCD/holding pharmacological prophylaxis with eliquis is due to acute kidney injury creatinine greater than 1.5 Family discussions: 01/22 V. tach episode, family discussion with palliative care medicine. It was decided alternate CODE STATUS be initiated, ACLS drugs only. AICD was interrogated and deactivated. Possible plan for transfer back to hospice, will consult nephrology for any additional recommendations and further discussion with palliative medicine regarding disposition. 01/23: Further interventions planned. Consult with palliative care medicine regarding transition back to hospice care on Tuesday. Patient is not a candidate for dialysis per nephrology, Dr. Cunningham, no further interventions planned. 01/24: palliative met and family continues to want aggressive medical care. Discharge Planning pending hospice evaluation. Jesus Alberto Alanis MD Jan 28, 2017 18:02
[2017-01-29] VITALS (26 sets, daily range): BP systolic 92–106; BP diastolic 56–97; PULSE 78–134; RESP 18–22; TEMP 97.1–98.6; O2SAT 95–100
[2017-01-29] MEDS: METOPROLOL TARTRATE 5 MG/5 ML VIAL IV PUSH SCH ×5 (00:23→23:00)
[2017-01-29] MEDS: INSULIN NovoLIN REGULAR SUPPLEMENTAL SCALE SQ SCH ×4 (00:33→17:22)
[2017-01-29] MEDS: CHLORHEXIDINE GLUCONATE 2 % 1 PACK (2 CLOTHS) TOP SCH (03:17)
[2017-01-29 05:39] LABS: HEMATOCRIT 41.3 % (35.0-46.0); MEAN CELL VOLUME 96.8 FL (80.0-100.0); MEAN CORPUSCULAR HEMOGLOBIN 30.8 PG (27.0-34.0); MEAN CORPUSCULAR HGB CONC 31.8 % (32.0-36.0); PLATELET COUNT 49 TH/MM3 (150-450); RED BLOOD COUNT 4.26 MIL/MM3 (4.00-5.30); WHITE BLOOD COUNT 9.8 TH/MM3 (4.0-11.0)
[2017-01-29 05:42] LABS: REVIEW FLAG FINAL
[2017-01-29 06:30] LABS: BICARBONATE 32.3 MEQ/L (21.0-32.0); POTASSIUM 3.4 MEQ/L (3.5-5.1)
[2017-01-29] MEDS: MULTIVITAMIN TAB PO SCH (08:23)
[2017-01-29] MEDS: BUMETANIDE INJ 1 MG/4 ML VIAL IV PUSH SCH ×2 (08:23→17:19)
[2017-01-29] MEDS: MEGESTROL ACETATE SUSP 400 MG/10 ML CUP PO SCH ×2 (08:23→17:20)
[2017-01-29] MEDS: PANTOPRAZOLE SODIUM 40 MG VIAL IV SCH (08:23)
[2017-01-29] MEDS: DOCUSATE SODIUM 50 MG/SENNA 8.6 MG TAB PO SCH ×2 (08:23→21:00)
[2017-01-29] MEDS: ASPIRIN 81 MG CHEW TAB CHEW SCH (08:23)
[2017-01-29] MEDS: THIAMINE HCL 100 MG TAB PO SCH (08:23)
[2017-01-29] MEDS: SODIUM CHLORIDE 0.9% FLUSH 10 ML FLUSH IV FLUSH SCH ×2 (08:24→21:00)
[2017-01-29] MEDS: POLYETHYLENE GLYCOL 17 GM PKG PO SCH (08:24)
[2017-01-29] MEDS: LACTULOSE SYRUP 20 GM/30 ML CUP PO SCH (08:24)
[2017-01-29] MEDS: ARTIFICIAL TEARS OPTH SOLN 15 ML BTL EACH EYE SCH ×3 (08:24→17:20)
--- NOTE | 2017-01-29 09:58 | HHI.NPPN ---
Subjective General Problems: Hypertension Renal Failure: Acute Interval History patient is lethargic, sleepy. Very good urine output. Renal function has improved. Additional Remarks Review of Systems General Constitutional: Fatigue Cardiovascular Cardiac: Edema Skin Skin: Lesions Objective Data Data 01/28/17 01/29/17 19:00 07:00 Intake Total 200 ml Output Total 3100 ml Balance -2900 ml Intake Oral 200 ml Output Urine Total 3100 ml # Bowel Movements 1 Vital Signs Date Time Temp Pulse Resp B/P Pulse Ox O2 Delivery O2 Flow Rate FiO2 01/29/17 09:00 90 01/29/17 08:00 90 01/29/17 07:00 80 01/29/17 07:00 97 Nasal Cannula 2.00 01/29/17 07:00 98.2 90 18 106/69 100 01/29/17 06:00 104 01/29/17 05:00 106 01/29/17 05:00 Nasal Cannula 2.00 01/29/17 05:00 98.6 102 20 101/68 97 01/29/17 04:00 92 01/29/17 03:00 134 01/29/17 02:00 94 01/29/17 01:00 102 01/29/17 00:00 91 01/29/17 00:00 Nasal Cannula 2.00 01/29/17 00:00 98.2 78 18 92/97 97 01/28/17 23:00 90 01/28/17 22:00 126 01/28/17 21:00 124 01/28/17 20:11 96 Nasal Cannula 2.00 01/28/17 20:00 97.8 93 20 106/66 97 01/28/17 20:00 90 01/28/17 20:00 Nasal Cannula 2.00 01/28/17 19:00 102 01/28/17 18:00 97 01/28/17 17:00 92 01/28/17 16:00 91 01/28/17 15:16 92 01/28/17 15:00 97.4 91 18 107/62 97 01/28/17 14:12 90 01/28/17 13:51 93 01/28/17 12:26 90 01/28/17 11:00 91 01/28/17 11:00 97.4 90 18 85/58 97 01/28/17 10:12 95 01/28/17 10:04 95 Nasal Cannula 2.00 -: 01/29/17 0431 01/29/17 0431 Tubes & Lines: Cavanaugh Physical Exam General Appearance: No Acute Distress, Comfortable Throat Throat Exam: Oral Mucosa [place] & Moist Neck Neck Exam: Neck Supple, Jugular Vein Distension Pulmonary Resp Exam: Decreased Bases, Diminished Breath Sounds Cardiology CV Exam: Irregular, Arrhythmia, Tachycardia Gastrointestinal/Abdomen GI Exam: Soft, Non-Tender, Positive Bowel Movement Musculoskeletal MS Exam: Joints Intact, Normal Tone Integumentary Skin Exam: Warm, Dry Extremeties Extremities Exam: Moderate Edema, Dependent Edema Neurologic Neuro Remarks lethargic, poorly responsive. Psychiatric Psych Exam: Appropriate Responses Assessment/Plan Discussed Condition With: Daughter, Relative Assessment Summary: PREMA/Acute Renal Failure, Fluid/Volume Overload, Hypertension Problem List: (1) Acute kidney injury Plan: PREMA on CKD 3: Her baseline creatinine has been near 1.6-1.8. Suspected underlying cardiorenal syndrome; PREMA may be due to ATN secondary to hypoperfusion during episodes of V-tach and hypotension Renal function has improved. Non oliguric, good diuresis. Continue Bumex. Replace potassium. (2) CHF (congestive heart failure) Plan: EF 20-25% Bumex was resumed as she is demonstrating fluid overload her weight is up 15 kg, monitor poor prognosis (3) Afib Plan: rate controlled continue metoprolol, cardiology on the case. she has AICD in place (4) Metabolic acidosis Plan: improved, monitor (5) Failure to thrive in adult Plan: Continue to follow goals of care with family recommend hospice (6) V-tach Plan: Resolved, continue to monitor cardiology has been consulted (7) Hyponatremia Plan: hypervolemic, improved slightly continue Loop diuretics Plan Ashvin England MD Jan 29, 2017 09:57
[2017-01-29] MEDS ORDERED: POTASSIUM CHLORIDE 10 MEQ CAP PO ONE (10:00)
[2017-01-29] MEDS ORDERED: acetaZOLAMIDE 250 MG TAB PO ONE (10:45)
[2017-01-29] MEDS ORDERED: POTASSIUM CHLORIDE 20 MEQ CONTROLLED RELEASE TAB PO ONE (10:45)
[2017-01-29] MEDS ORDERED: CHLOROTHIAZIDE SOD 500 MG VIAL IV ONE (10:45)
[2017-01-29] MEDS: ACETAMINOPHEN 325 MG TAB PO PRN (12:25)
[2017-01-29] MEDS ORDERED: METOPROLOL TARTRATE 5 MG/5 ML VIAL IV PUSH ONE ×2 (14:45→18:30)
--- NOTE | 2017-01-29 14:59 | HHI.PR ---
Subjective Remarks Patient seen today around 2 PM. No acute changes. Discussed with nursing. Patient sleeping, wakes up for exam. Appears to deny pain. Heart rate 110. Solid blood pressure 100. Still with marked JVD. We'll order IV metoprolol. Objective Vital Signs Date Time Temp Pulse Resp B/P Pulse Ox O2 Delivery O2 Flow Rate FiO2 01/29/17 11:03 95 Nasal Cannula 2.00 01/29/17 11:00 98.2 90 18 106/69 100 01/29/17 10:25 96 01/29/17 09:00 90 01/29/17 08:00 90 01/29/17 07:00 80 01/29/17 07:00 97 Nasal Cannula 2.00 01/29/17 07:00 98.2 90 18 106/69 100 01/29/17 06:00 104 01/29/17 05:00 106 01/29/17 05:00 Nasal Cannula 2.00 01/29/17 05:00 98.6 102 20 101/68 97 01/29/17 04:00 92 01/29/17 03:00 134 01/29/17 02:00 94 01/29/17 01:00 102 01/29/17 00:00 91 01/29/17 00:00 Nasal Cannula 2.00 01/29/17 00:00 98.2 78 18 92/97 97 01/28/17 23:00 90 01/28/17 22:00 126 01/28/17 21:00 124 01/28/17 20:11 96 Nasal Cannula 2.00 01/28/17 20:00 97.8 93 20 106/66 97 01/28/17 20:00 90 01/28/17 20:00 Nasal Cannula 2.00 01/28/17 19:00 102 01/28/17 18:00 97 01/28/17 17:00 92 01/28/17 16:00 91 01/28/17 15:16 92 01/28/17 15:00 97.4 91 18 107/62 97 I/O 01/28/17 01/28/17 01/28/17 01/29/17 01/29/17 01/29/17 07:00 15:00 23:00 07:00 15:00 23:00 Intake Total 200 ml 200 ml Output Total 650 ml 3100 ml 3100 ml Balance -650 ml -2900 ml -2900 ml Intake Oral 200 ml 200 ml Output Urine Total 650 ml 3100 ml 3100 ml # Bowel Movements 1 1 Result Diagram: 01/29/1743001/29/17430 Objective Remarks GENERAL: patient lying in bed.somnolent. Wakes up for exam. Disoriented. apprears to deny pain SKIN: Warm and dry. HEAD: Normocephalic. EYES: No scleral icterus. No injection or drainage. NECK: Supple, trachea midline. still with marked JVD. CARDIOVASCULAR: slightly tachycardic as before RESPIRATORY: Breath sounds equal bilaterally. No accessory muscle use. GASTROINTESTINAL: Abdomen soft, non-tender, nondistended. MUSCULOSKELETAL: No cyanosis, or edema. BACK: Nontender without obvious deformity. No CVA tenderness. A/P Assessment and Plan === 01/29/17 //CHF exacerbation still with JVD. Slow improvement. Continue diuresis. IV diarrheal ordered. -Extra metoprolol ordered to keep heart rate at pacer rate. Patient with poor prognosis, however, has refused hospice. //Hypokalemia. Replaced by mouth by nephrology. Increase replacement today due to increased diuresis. Repeat tomorrow. //Acute kidney injury. Cardiorenal. Creatinine 2.6. BUN 106. Improving with diuresis. //thrombocytopenia. Continue slow decrease. Platelets 49. No signs of bleeding. Likely Secondary to congestive hepatopathy. Continue to monitor. Not on heparin. "71yF with multiple acute on chronic medical problems, now with worsening oliguric PREMA. Cr worsening today with restarting bumex and d/c fluids, but clinically appears volume overloaded, she continues with all her medical problems, volume overload, pneumonia, heart failure. Still unlikely to recover. at family's request, continuing aggressive care. poor prognosis. however, no indication for ICU admission at this time, and she can be equally well taken care of out of ICU. 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 Depression Failure to thrive Insomnia Lethargy Hold Zoloft 50 mg by mouth daily for depression secondary to patient's current lethargy Holding Restoril 7.5 mg daily at bedtime as home medication for insomnia Continue Megace 400 mg by mouth daily for failure to thrive CT Brain 01/17 revealed no acute intracranial findings Avoid all sedating type medications, and correction of hypoglycemia Ammonia persistently elevated, continue lactulose CV: Severe sepsis with multisystem organ failure Chronic systolic heart failure ejection fraction 20% History of atrial flutter status post ablation 10/[address] Velazquez Hypertension Dyslipidemia Lactic acidosis is likely cardiac etiology Status post AICD placement-deactivated 01/21 Elevated troponin H/O DE Holding Zocor 40 mg by mouth daily for dyslipidemia. Resume when clinically indicated Holding Bumex 2 mg by mouth twice a day and spironolactone 25 mg at night due to hypotension and acute kidney injury.. 01/20 Lactate 2.3 Echocardiogram 01/18-ejection fraction 5%. Possible basal posterior and apical kinesis and severe hypokinesis of all other segments Dr. Olson, electronic commerce specialist- signed off 01/21 Continue aspirin 81 mg by mouth daily 01/20 BNP > 5000 01/21 episode of V. tach was self resolution. A. fib RVR amiodarone infusion initiated, will restart Metoprolol when clinically improvement in BP. 01/24 Started on amiodarone PO Resp: History COPD Left pleural effusion by cliical exam vs atelectasis Nasal cannula to maintain saturations greater than equal to 92%, Repeat CXR today. if goals- if aggressive with get an US guided thoracentesis if + effusion Incentive spirometry while awake Duo nebs every 6 hours and albuterol every 2 hours when necessary dyspnea CT chest 01/08 revealed massive cardiomegaly, small right pleural effusion 01/18 Metabolic acidosis was noted patient was placed on bicarbonate infusion, anion gap improved, discontinued on 01/19, restarted 01/21 01/23 bicarbonate level 34, discontinue sodium bicarbonate infusion GI: Nausea/vomiting-resolved Transaminitis 1800 ADA diet Protonix for GI prophylaxis PeriColace for bowel regimen On Megace for anorexia. CT abdomen/pelvis revealed no signs of bowel obstruction. 01/21 liver enzymes continue to increase, with severe hypoglycemia , shock liver ? 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 Noted 5 kg wt gain since admission. 01/24: restarted bumex per nephrology. Heme: Leukocytosis-resolved Elevated PT/INR and PTT Monitor CBC daily. Follow trends Holding Eliquis 5 mg BID, INR 1.3 01/17 fibrinogen WNL ID: Severe sepsis source pneumonia aspiration? UTI? Zosyn, vancomycin discontinued 08/26 worsening creatinine 01/21 ID following- Dr. Johnson, all antibiotics discontinued 01/22 per ID Pertinent cultures - Blood cultures 2 01/17 -Bacillus - Urine culture 01/17 - pending Sputum culture-pending influenza A & B-negative FEN: Hyponatremia Hyperkalemia-resolved Hyper-magnesium Hyperphosphatemia 01/21 IVF D5NS @42cc/hr Received hyperkalemia protocol in ED. 01/23 sodium bicarbonate discontinued MSK: PT evaluate and treat 01/21 Bilateral upper arm edema-ultrasound bilateral lower extremities negative Access - Utilize peripheral IV. Change PIV's 01/21 Central line if indicated Prophylaxis - GI -Protonix - DVT - SCD/holding pharmacological prophylaxis with eliquis is due to acute kidney injury creatinine greater than 1.5 Family discussions: 01/22 V. tach episode, family discussion with palliative care medicine. It was decided alternate CODE STATUS be initiated, ACLS drugs only. AICD was interrogated and deactivated. Possible plan for transfer back to hospice, will consult nephrology for any additional recommendations and further discussion with palliative medicine regarding disposition. 01/23: Further interventions planned. Consult with palliative care medicine regarding transition back to hospice care on Tuesday. Patient is not a candidate for dialysis per nephrology, Dr. Cunningham, no further interventions planned. 01/24: palliative met and family continues to want aggressive medical care. Discharge Planning fam has refused hospice. Jesus Alberto Alanis MD Jan 29, 2017 14:59
[2017-01-30] VITALS (26 sets, daily range): BP systolic 92–111; BP diastolic 57–66; PULSE 89–154; RESP 22–28; TEMP 97.5–99.1; O2SAT 98–100
[2017-01-30] MEDS: CHLORHEXIDINE GLUCONATE 2 % 1 PACK (2 CLOTHS) TOP SCH (04:00)
[2017-01-30] MEDS: METOPROLOL TARTRATE 5 MG/5 ML VIAL IV PUSH SCH ×5 (05:00→23:25)
[2017-01-30 05:26] LABS: HEMATOCRIT 46.6 % (35.0-46.0); MEAN CELL VOLUME 97.1 FL (80.0-100.0); MEAN CORPUSCULAR HEMOGLOBIN 31.8 PG (27.0-34.0); MEAN CORPUSCULAR HGB CONC 32.7 % (32.0-36.0); PLATELET COUNT 50 TH/MM3 (150-450); RED CELL DISTRIBUTION WIDTH 25.6 % (11.6-17.2); WHITE BLOOD COUNT 11.4 TH/MM3 (4.0-11.0)
[2017-01-30 05:26] LABS: BICARBONATE 31.2 MEQ/L (21.0-32.0); POTASSIUM 3.6 MEQ/L (3.5-5.1)
[2017-01-30 05:40] LABS: REVIEW FLAG FINAL
[2017-01-30] MEDS: INSULIN NovoLIN REGULAR SUPPLEMENTAL SCALE SQ SCH ×5 (06:00→21:00)
[2017-01-30] MEDS: MULTIVITAMIN TAB PO SCH (08:28)
[2017-01-30] MEDS: THIAMINE HCL 100 MG TAB PO SCH (08:28)
[2017-01-30] MEDS: BUMETANIDE INJ 1 MG/4 ML VIAL IV PUSH SCH ×2 (08:28→17:18)
[2017-01-30] MEDS: MEGESTROL ACETATE SUSP 400 MG/10 ML CUP PO SCH ×2 (08:28→17:18)
[2017-01-30] MEDS: ASPIRIN 81 MG CHEW TAB CHEW SCH (08:28)
[2017-01-30] MEDS: SODIUM CHLORIDE 0.9% FLUSH 10 ML FLUSH IV FLUSH SCH ×2 (08:29→21:00)
[2017-01-30] MEDS: ARTIFICIAL TEARS OPTH SOLN 15 ML BTL EACH EYE SCH ×3 (08:29→17:18)
[2017-01-30] MEDS: PANTOPRAZOLE SODIUM 40 MG VIAL IV SCH (08:29)
[2017-01-30] MEDS: LACTULOSE SYRUP 20 GM/30 ML CUP PO SCH (08:30)
[2017-01-30] MEDS: POLYETHYLENE GLYCOL 17 GM PKG PO SCH (08:30)
[2017-01-30] MEDS: DOCUSATE SODIUM 50 MG/SENNA 8.6 MG TAB PO SCH ×2 (08:30→21:00)
--- NOTE | 2017-01-30 08:38 | HHI.NPPN ---
Subjective General Problems: Hypertension Renal Failure: Acute Interval History Given Diamox and Diuril in addition to Bumex yesterday. Excellent urine output, renal function has improved. Additional Remarks Review of Systems General Constitutional: Fatigue Cardiovascular Cardiac: Edema Skin Skin: Lesions Objective Data Data 01/29/17 01/30/17 19:00 07:00 Intake Total 400 ml 480 ml Output Total 5120 ml 1400 ml Balance -4720 ml -920 ml Intake Oral 400 ml 480 ml Output Urine Total 5120 ml 1400 ml # Bowel Movements 1 Vital Signs Date Time Temp Pulse Resp B/P Pulse Ox O2 Delivery O2 Flow Rate FiO2 01/30/17 06:00 90 01/30/17 05:00 90 01/30/17 04:00 98 01/30/17 03:00 98 01/30/17 03:00 97.6 95 22 98/58 100 01/30/17 02:00 102 01/30/17 01:00 98 01/30/17 00:00 94 01/29/17 23:00 97.1 90 20 93/58 100 01/29/17 23:00 94 01/29/17 22:00 100 01/29/17 21:00 90 01/29/17 19:00 130 01/29/17 19:00 98 Nasal Cannula 2.00 01/29/17 19:00 97.3 85 22 94/56 98 01/29/17 18:33 107 01/29/17 17:57 111 01/29/17 17:53 97 Nasal Cannula 2.00 01/29/17 16:05 113 01/29/17 15:48 101 01/29/17 15:00 97.4 107 18 103/79 97 01/29/17 14:44 118 01/29/17 13:00 110 01/29/17 12:00 97 01/29/17 11:03 95 Nasal Cannula 2.00 01/29/17 11:00 98.2 90 18 106/69 100 01/29/17 11:00 99 01/29/17 10:25 96 01/29/17 09:00 90 -: 01/30/17 0442 01/30/17 0427 Tubes & Lines: Cavanaugh Physical Exam General Appearance: No Acute Distress, Comfortable, Sleeping Throat Throat Exam: Oral Mucosa [place] & Moist Neck Neck Exam: Neck Supple, Jugular Vein Distension Pulmonary Resp Exam: Decreased Bases, Diminished Breath Sounds Cardiology CV Exam: Irregular, Arrhythmia, Tachycardia Gastrointestinal/Abdomen GI Exam: Soft, Non-Tender, Positive Bowel Movement Musculoskeletal MS Exam: Joints Intact, Normal Tone Integumentary Skin Exam: Warm, Dry Extremeties Extremities Exam: Moderate Edema, Dependent Edema Neurologic Neuro Remarks lethargic, poorly responsive. Psychiatric Psych Exam: Appropriate Responses Assessment/Plan Discussed Condition With: Daughter, Relative Assessment Summary: PREMA/Acute Renal Failure, Fluid/Volume Overload, Hypertension Problem List: (1) Acute kidney injury Plan: PREMA on CKD 3: Her baseline creatinine has been near 1.6-1.8. Suspected underlying cardiorenal syndrome; PREMA may be due to ATN secondary to hypoperfusion during episodes of V-tach and hypotension Renal function has improved. Non oliguric, good diuresis. Continue Bumex. Replace potassium as needed. (2) CHF (congestive heart failure) Plan: EF 20-25% Bumex was resumed as she is demonstrating fluid overload her weight is up 15 kg, monitor poor prognosis (3) Afib Plan: rate controlled continue metoprolol, cardiology on the case. she has AICD in place (4) Metabolic acidosis Plan: improved, monitor (5) Failure to thrive in adult Plan: Continue to follow goals of care with family recommend hospice (6) V-tach Plan: Resolved, continue to monitor cardiology has been consulted (7) Hyponatremia Plan: hypervolemic, improved slightly continue Loop diuretics Plan longterm prognosis is poor. Not a candidate for aggressive renal intervention such as dialysis from renal prospective. Acute kidney injury appears to be improving. Ashvin England MD Jan 30, 2017 08:37
--- NOTE | 2017-01-30 15:56 | HHI.GIFU ---
GI Follow-up Note Consult Follow-up Subjective: Patient laying in bed comfortably, weak .As per nurses her appetite improved.Family decided to continue aggressive care for now .No nausea , vomiting Objective: PHYSICAL EXAMINATION: Vitals signs stable No fever Vital Signs Date Time Temp Pulse Resp B/P Pulse Ox O2 Delivery O2 Flow Rate FiO2 01/30/17 12:00 98.0 93 24 102/57 99 01/30/17 12:00 90 01/30/17 12:00 Nasal Cannula 2.00 01/30/17 10:10 100 Nasal Cannula 2.00 01/30/17 08:00 92 01/30/17 08:00 Nasal Cannula 2.00 01/30/17 08:00 97.6 90 24 92/59 99 HEENT: Pupils round and reactive to light; normocephalic; atraumatic; no jaundice. Throat is clear. NECK: Neck is supple, no JVD, no lymphadenopathy. CHEST: Chest is clear to auscultation and percussion. CARDIAC: Regular rate and rhythm , systolic murmur no gallop or rubs. ABDOMEN: Soft, nondistended, nontender; no hepatosplenomegaly; bowel sounds are present in all four quadrants. EXTREMITIES: No clubbing, cyanosis, or edema. SKIN: Normal; no rash; no jaundice. CEMENT MIXER: weak, not communicating much Available Data (labs, X- Rays, Procedues) : Laboratory Tests Test 01/28/17 01/29/17 01/30/17 01/30/17 22:53 04:31 04:27 04:42 Lactic Acid Level 1.7 mmol/L White Blood Count 9.8 TH/MM3 11.4 TH/MM3 Red Blood Count 4.26 MIL/MM3 4.80 MIL/MM3 Hemoglobin 13.1 GM/DL 15.2 GM/DL Hematocrit 41.3 % 46.6 % Mean Corpuscular Volume 96.8 FL 97.1 FL Mean Corpuscular Hemoglobin 30.8 PG 31.8 PG Mean Corpuscular Hemoglobin 31.8 % 32.7 % Concent Red Cell Distribution Width 24.0 % 25.6 % Platelet Count 49 TH/MM3 50 TH/MM3 Mean Platelet Volume 9.3 FL 10.2 FL Sodium Level 133 MEQ/L 133 MEQ/L Potassium Level 3.4 MEQ/L 3.6 MEQ/L Chloride Level 88 MEQ/L 90 MEQ/L Carbon Dioxide Level 32.3 MEQ/L 31.2 MEQ/L Anion Gap 13 MEQ/L 12 MEQ/L Blood Urea Nitrogen 107 MG/DL 92 MG/DL Creatinine 2.64 MG/DL 2.25 MG/DL Estimat Glomerular Filtration 22 ML/MIN 26 ML/MIN Rate Random Glucose 163 MG/DL 167 MG/DL Calcium Level 9.3 MG/DL 9.6 MG/DL Magnesium Level 2.3 MG/DL ASSESSMENT/PLAN: poor oral intake- slight improvement continue calorie tray count for next 3 days if no improvement consider tube feeding /tpn elevated lfts most likely congestive hepatopathy hospice /palliative care consulted -family opted for aggressive medical care monitor lfts poor prognosis It was a pleasure seeing Yamel Salinas. Thank you for this consult. Entered by: Luann Pedroza MD Jan 30, 2017 15:56
--- NOTE | 2017-01-30 16:02 | HHI.PR ---
Subjective Remarks She is seen this morning. Awake. Appears to deny pain. More alert than yesterday. Nursing reports the patient has been eating, had peaches this morning Objective Vital Signs Date Time Temp Pulse Resp B/P Pulse Ox O2 Delivery O2 Flow Rate FiO2 01/30/17 12:00 98.0 93 24 102/57 99 01/30/17 12:00 90 01/30/17 12:00 Nasal Cannula 2.00 01/30/17 10:10 100 Nasal Cannula 2.00 01/30/17 08:00 92 01/30/17 08:00 Nasal Cannula 2.00 01/30/17 08:00 97.6 90 24 92/59 99 01/30/17 06:00 90 01/30/17 05:00 90 01/30/17 04:00 98 01/30/17 03:00 98 01/30/17 03:00 97.6 95 22 98/58 100 01/30/17 02:00 102 01/30/17 01:00 98 01/30/17 00:00 94 01/29/17 23:00 97.1 90 20 93/58 100 01/29/17 23:00 94 01/29/17 22:00 100 01/29/17 21:00 90 01/29/17 19:00 130 01/29/17 19:00 98 Nasal Cannula 2.00 01/29/17 19:00 97.3 85 22 94/56 98 01/29/17 18:33 107 01/29/17 17:57 111 01/29/17 17:53 97 Nasal Cannula 2.00 01/29/17 16:05 113 I/O 01/29/17 01/29/17 01/29/17 01/30/17 01/30/17 01/30/17 07:00 15:00 23:00 07:00 15:00 23:00 Intake Total 200 ml 200 ml 480 ml Output Total 3100 ml 2020 ml 1400 ml Balance -2900 ml -1820 ml -920 ml Intake Oral 200 ml 200 ml 480 ml Output Urine Total 3100 ml 2020 ml 1400 ml # Bowel Movements 1 Result Diagram: 01/30/17 0442 01/30/17 0427 Objective Remarks GENERAL: Awake Disoriented. appears to deny pain. SKIN: Warm and dry. HEAD: Normocephalic. EYES: No scleral icterus. No injection or drainage. NECK: Supple, trachea midline. jVD much improved today. CARDIOVASCULAR: slightly tachycardic as before RESPIRATORY: Breath sounds equal bilaterally. No accessory muscle use. GASTROINTESTINAL: Abdomen soft, non-tender, nondistended. MUSCULOSKELETAL: No cyanosis. Patient with +2 edema, improved from yesterday. BACK: Nontender without obvious deformity. No CVA tenderness. A/P Assessment and Plan === 01/30/17 //CHF exacerbation improving. 6 L out yesterday secondary to diuril. Continue IV Bumex. -Increase metoprolol to every 4 hours. //Hypokalemia. Proved after replacement. Continue to monitor. //Acute kidney injury. Cardiorenal. Creatinine 2.2. BUN 90s. Improving with diuresis. //thrombocytopenia. Stable. 50s. No Signs of bleeding. Likely Secondary to congestive hepatopathy. Continue to monitor. Continues without heparin. "71yF with multiple acute on chronic medical problems, now with worsening oliguric PREMA. Cr worsening today with restarting bumex and d/c fluids, but clinically appears volume overloaded, she continues with all her medical problems, volume overload, pneumonia, heart failure. Still unlikely to recover. at family's request, continuing aggressive care. poor prognosis. however, no indication for ICU admission at this time, and she can be equally well taken care of out of ICU. 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 Depression Failure to thrive Insomnia Lethargy Hold Zoloft 50 mg by mouth daily for depression secondary to patient's current lethargy Holding Restoril 7.5 mg daily at bedtime as home medication for insomnia Continue Megace 400 mg by mouth daily for failure to thrive CT Brain 01/17 revealed no acute intracranial findings Avoid all sedating type medications, and correction of hypoglycemia Ammonia persistently elevated, continue lactulose CV: Severe sepsis with multisystem organ failure Chronic systolic heart failure ejection fraction 20% History of atrial flutter status post ablation 10/[address] Velazquez Hypertension Dyslipidemia Lactic acidosis is likely cardiac etiology Status post AICD placement-deactivated 01/21 Elevated troponin H/O VT Holding Zocor 40 mg by mouth daily for dyslipidemia. Resume when clinically indicated Holding Bumex 2 mg by mouth twice a day and spironolactone 25 mg at night due to hypotension and acute kidney injury.. 01/20 Lactate 2.3 Echocardiogram 01/18-ejection fraction 5%. Possible basal posterior and apical kinesis and severe hypokinesis of all other segments Dr. Olson, health education aide- signed off 01/21 Continue aspirin 81 mg by mouth daily 01/20 BNP > 5000 01/21 episode of V. tach was self resolution. A. fib RVR amiodarone infusion initiated, will restart Metoprolol when clinically improvement in BP. 01/24 Started on amiodarone PO Resp: History COPD Left pleural effusion by cliical exam vs atelectasis Nasal cannula to maintain saturations greater than equal to 92%, Repeat CXR today. if goals- if aggressive with get an US guided thoracentesis if + effusion Incentive spirometry while awake Duo nebs every 6 hours and albuterol every 2 hours when necessary dyspnea CT chest 01/08 revealed massive cardiomegaly, small right pleural effusion 01/18 Metabolic acidosis was noted patient was placed on bicarbonate infusion, anion gap improved, discontinued on 01/19, restarted 01/21 01/23 bicarbonate level 34, discontinue sodium bicarbonate infusion GI: Nausea/vomiting-resolved Transaminitis 1800 ADA diet Protonix for GI prophylaxis PeriColace for bowel regimen On Megace for anorexia. CT abdomen/pelvis revealed no signs of bowel obstruction. 01/21 liver enzymes continue to increase, with severe hypoglycemia , shock liver ? 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 Noted 5 kg wt gain since admission. 01/24: restarted bumex per nephrology. Heme: Leukocytosis-resolved Elevated PT/INR and PTT Monitor CBC daily. Follow trends Holding Eliquis 5 mg BID, INR 1.3 01/17 fibrinogen WNL ID: Severe sepsis source pneumonia aspiration? UTI? Zosyn, vancomycin discontinued 08/26 worsening creatinine 01/21 ID following- Dr. Johnson, all antibiotics discontinued 01/22 per ID Pertinent cultures - Blood cultures 2 01/17 -Bacillus - Urine culture 01/17 - pending Sputum culture-pending influenza A & B-negative FEN: Hyponatremia Hyperkalemia-resolved Hyper-magnesium Hyperphosphatemia 01/21 IVF D5NS @42cc/hr Received hyperkalemia protocol in ED. 01/23 sodium bicarbonate discontinued MSK: PT evaluate and treat 01/21 Bilateral upper arm edema-ultrasound bilateral lower extremities negative Access - Utilize peripheral IV. Change PIV's 01/21 Central line if indicated Prophylaxis - GI -Protonix - DVT - SCD/holding pharmacological prophylaxis with eliquis is due to acute kidney injury creatinine greater than 1.5 Family discussions: 01/22 V. tach episode, family discussion with palliative care medicine. It was decided alternate CODE STATUS be initiated, ACLS drugs only. AICD was interrogated and deactivated. Possible plan for transfer back to hospice, will consult nephrology for any additional recommendations and further discussion with palliative medicine regarding disposition. 01/23: Further interventions planned. Consult with palliative care medicine regarding transition back to hospice care on Tuesday. Patient is not a candidate for dialysis per nephrology, Dr. Cunningham, no further interventions planned. 01/24: palliative met and family continues to want aggressive medical care. Discharge Planning fam has refused hospice. Continues in [facility] for cardiorenal syndrome Jesus Alberto Alanis MD Jan 30, 2017 16:02
--- NOTE | 2017-01-30 17:03 | HHI.PR ---
Objective Vitals Vital Signs Date Time Temp Pulse Resp B/P Pulse Ox O2 Delivery O2 Flow Rate FiO2 01/30/17 16:25 98.7 89 24 95/63 98 01/30/17 12:00 98.0 93 24 102/57 99 01/30/17 12:00 90 01/30/17 12:00 Nasal Cannula 2.00 01/30/17 10:10 100 Nasal Cannula 2.00 01/30/17 08:00 92 01/30/17 08:00 Nasal Cannula 2.00 01/30/17 08:00 97.6 90 24 92/59 99 01/30/17 06:00 90 01/30/17 05:00 90 01/30/17 04:00 98 01/30/17 03:00 98 01/30/17 03:00 97.6 95 22 98/58 100 01/30/17 02:00 102 01/30/17 01:00 98 01/30/17 00:00 94 01/29/17 23:00 97.1 90 20 93/58 100 01/29/17 23:00 94 01/29/17 22:00 100 01/29/17 21:00 90 01/29/17 19:00 130 01/29/17 19:00 98 Nasal Cannula 2.00 01/29/17 19:00 97.3 85 22 94/56 98 01/29/17 18:33 107 01/29/17 17:57 111 01/29/17 17:53 97 Nasal Cannula 2.00 I/O 01/29/17 01/29/17 01/29/17 01/30/17 01/30/17 01/30/17 07:00 15:00 23:00 07:00 15:00 23:00 Intake Total 200 ml 200 ml 480 ml Output Total 3100 ml 2020 ml 1400 ml Balance -2900 ml -1820 ml -920 ml Intake Oral 200 ml 200 ml 480 ml Output Urine Total 3100 ml 2020 ml 1400 ml # Bowel Movements 1 Result Diagram: 01/30/17 0442 01/30/17 0427 Imaging Last Impressions Chest X-Ray 01/26/17 0000 Signed Impressions: Service Date/Time: Thursday, January 26, 2017 12:34 - CONCLUSION: 1. Moderate bilateral pleural effusions with associated lower lobe airspace disease. 2. Stable enlargement of the cardiac silhouette. Alon Montenegro MD Upper Extremity Ultrasound 01/24/17 0000 Signed Impressions: Service Date/Time: Tuesday, January 24, 2017 08:53 - CONCLUSION: Normal examination for a patient of this age. Kip Arriaga MD Liver Ultrasound 01/22/17 0000 Signed Impressions: Service Date/Time: Sunday, January 22, 2017 14:51 - CONCLUSION: 1. Dilatation the common bile duct likely reflecting a reservoir following cholecystectomy. This could be correlated clinically and with the patient's laboratory biliary status. 2. Bilateral pleural effusions. Mello Oglesby MD Head CT 01/17/17 0000 Signed Impressions: Service Date/Time: Tuesday, January 17, 2017 17:13 - CONCLUSION: Negative for an acute process. Herve Fam MD FACR Chest CT 01/17/17 0000 Signed Impressions: Service Date/Time: Tuesday, January 17, 2017 17:18 - CONCLUSION: Cardiomegaly. Small right effusion. Mild basilar atelectasis. Mello Cameron MD Abdomen/Pelvis CT 01/17/17 0000 Signed Impressions: Service Date/Time: Tuesday, January 17, 2017 17:18 - CONCLUSION: Massive cardiomegaly without pericardial effusion. Minimal failure with small right pleural effusion and trace ascites. There is no gastric distention. Herve Fam MD FACR Objective Remarks GENERAL: Awake Disoriented. appears to deny pain. SKIN: Warm and dry. HEAD: Normocephalic. EYES: No scleral icterus. No injection or drainage. NECK: Supple, trachea midline. jVD much improved today. CARDIOVASCULAR: slightly tachycardic as before RESPIRATORY: Breath sounds equal bilaterally. No accessory muscle use. GASTROINTESTINAL: Abdomen soft, non-tender, nondistended. MUSCULOSKELETAL: No cyanosis. Patient with +2 edema, improved from yesterday. BACK: Nontender without obvious deformity. No CVA tenderness. Procedures AICD placement-deactivated 01/21 A/P Problem List: (1) Metabolic acidosis ICD Code: E87.2 Status: Resolved (2) NSTEMI (non-ST elevated myocardial infarction) ICD Code: I21.4 Status: Acute (3) Sepsis ICD Code: A41.9 Status: Resolved (4) Renal failure ICD Code: N19 Status: Acute (5) Implantable cardioverter-defibrillator generator end of life ICD Code: Z45.02 Status: Acute (6) Hyperkalemia ICD Code: E87.5 Status: Resolved (7) Atrial flutter ICD Code: I48.92 Status: Resolved (8) Congestive heart failure ICD Code: I50.9 Status: Chronic (9) COPD (chronic obstructive pulmonary disease) ICD Code: J44.9 Status: Chronic (10) Elevated troponin level ICD Code: R79.89 Status: Acute (11) CAD (coronary artery disease) ICD Code: I25.10 Status: Chronic (12) Impaired mobility and activities of daily living ICD Code: Z74.09 Status: Acute (13) Hemiparesis affecting dominant side as late effect of cerebrovascular accident (CVA) ICD Code: I69.359 Status: Chronic (14) HTN (hypertension) ICD Code: I10 Status: Chronic (15) CKD (chronic kidney disease) stage 3, GFR 30-59 ml/min ICD Code: N18.3 Status: Chronic (16) DM2 (diabetes mellitus, type 2) ICD Code: E11.9 Status: Chronic (17) Leukocytosis ICD Code: D72.829 Status: Acute (18) Lactic acidosis ICD Code: E87.2 Status: Acute (19) Hyperphosphatemia ICD Code: E83.39 Status: Resolved (20) Hypermagnesemia ICD Code: E83.41 Status: Resolved (21) Insomnia ICD Code: G47.00 Status: Acute (22) Failure to thrive in adult ICD Code: R62.7 Status: Acute (23) Severe sepsis with acute organ dysfunction ICD Code: A41.9 Status: Resolved Assessment and Plan 71yF with multiple acute on chronic medical problems, now with worsening oliguric PREMA. Cr worsening t with restarting bumex and d/c fluids, but clinically appears volume overloaded, she continues with her medical problems, volume overload, pneumonia, heart failure. Still unlikely to recover. At family 's request, continuing aggressive care. poor prognosis. however, no indication for ICU admission at this time, and she can be equally well taken care of out of ICU. 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 Diuresing on Bumex History of atrial flutter status post ablation 10/[address] Velazquez on lopressor. Not a good candidate for anticoagulation per cards ct asa Hypertension Dyslipidemia Lactic acidosis is likely cardiac etiology Status post AICD placement-deactivated 01/21 Elevated troponin H/O MN Holding Zocor 40 mg by mouth daily for dyslipidemia / transaminitis Held spironolactone 25 mg at night due to hypotension and acute kidney injury.. 01/20 Lactate 2.3 Echocardiogram 01/18-ejection fraction 2024%. 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 tach was self resolution. A. fib RVR amiodarone infusion initiated, will restart Metoprolol when clinically improvement in BP. 01/24 Started on amiodarone PO dc / hepatic issues Resp: History COPD Left pleural effusion by cliical exam vs atelectasis Nasal cannula to maintain saturations greater than equal to 92%, Repeat CXR. if goals- if aggressive with get an US guided thoracentesis if + effusion Incentive spirometry while awake Duo nebs every 6 hours and albuterol every 2 hours when necessary dyspnea CT chest 01/08 revealed massive cardiomegaly, small right pleural effusion 01/18 Metabolic acidosis was noted patient was placed on bicarbonate infusion, anion gap improved, discontinued on 01/19, restarted 01/21 01/23 bicarbonate level 34, discontinue sodium bicarbonate infusion GI: Nausea/vomiting-resolved Transaminitis 1800 ADA diet Protonix for GI prophylaxis PeriColace for bowel regimen On Megace for anorexia. CT abdomen/pelvis revealed no signs of bowel obstruction. 01/21 liver enzymes continue to increase, with severe hypoglycemia , shock liver ? 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 Noted 5 kg wt gain since admission. 01/24: restarted IV bumex per nephrology. Not a candidate for dialysis per renal Heme: Leukocytosis-resolved Elevated PT/INR and PTT Monitor CBC daily. Follow trends Holding Eliquis 5 mg BID, INR 1.3 01/17 fibrinogen WNL ID: Severe sepsis source pneumonia aspiration? UTI? Zosyn, vancomycin discontinued 08/26 worsening creatinine 01/21 ID following- Dr. Johnson, all antibiotics discontinued 01/22 per ID Pertinent cultures - Blood cultures 2 01/17 -Bacillus - Urine culture 01/17 - pending - influenza A & B-negative FEN: Hyponatremia Hyperkalemia-resolved Hyper-magnesium Hyperphosphatemia 01/21 IVF D5NS @42cc/hr Received hyperkalemia protocol in ED. 01/23 sodium bicarbonate discontinued MSK: PT evaluate and treat 01/21 Bilateral upper arm edema-ultrasound bilateral lower extremities negative Access - Utilize peripheral IV. Change PIV's 01/21 Central line if indicated Prophylaxis - GI -Protonix - DVT - SCD/holding pharmacological prophylaxis with eliquis is due to acute kidney injury creatinine greater than 1.5 . Also no chemical prophylaxis due to thrombocytopenia Family discussions: 01/22 VCally tach episode, family discussion with palliative care medicine. It was decided alternate CODE STATUS be initiated, ACLS drugs only. AICD was interrogated and deactivated. Possible plan for transfer back to hospice, will consult nephrology for any additional recommendations and further discussion with palliative medicine regarding disposition. 01/23: Further interventions planned. Consult with palliative care medicine regarding transition back to hospice care on Tuesday. Patient is not a candidate for dialysis per nephrology, Dr. Cunningham, no further interventions planned. 01/24: palliative met and family continues to want aggressive medical care. Discharge Planning family has refused hospice. Continues in [facility] for cardiorenal syndrome Problem Qualifiers (1) Sepsis: Qualified Code: A41.9 - Sepsis, due to unspecified organism (2) Renal failure: Qualified Code: N17.9 - Acute renal failure superimposed on stage 3 chronic kidney disease, unspecified acute renal failure type (3) Atrial flutter: Qualified Code: I48.92 - Atrial flutter, unspecified type (4) Congestive heart failure: Qualified Code: I50.23 - Acute on chronic systolic congestive heart failure (5) COPD (chronic obstructive pulmonary disease): Qualified Code: J44.9 - Chronic obstructive pulmonary disease, unspecified COPD type (6) CAD (coronary artery disease): Qualified Code: I25.10 - Coronary artery disease involving [place] coronary artery of [place] heart without angina pectoris (7) HTN (hypertension): Qualified Code: I15.9 - Secondary hypertension (8) DM2 (diabetes mellitus, type 2): Qualified Code: E11.8 - Type 2 diabetes mellitus with complication, without long-term current use of insulin (9) Leukocytosis: Qualified Code: D72.829 - Leukocytosis, unspecified type (10) Insomnia: Qualified Code: G47.00 - Insomnia, unspecified type Hudson Taylor MD Jan 30, 2017 17:03
[2017-01-30 17:33] LABS: INDIRECT BILIRUBIN 1.4 MG/DL (0.0-0.8); TOTAL BILIRUBIN ADULT 2.7 MG/DL (0.2-1.0)
[2017-01-30] MEDS ORDERED: DILTIAZEM HCL 25 MG/5 ML VIAL IV ONE (22:15)
[2017-01-31] VITALS (24 sets, daily range): BP systolic 93–106; BP diastolic 50–66; PULSE 89–143; RESP 18–26; TEMP 97.4–98.7; O2SAT 98–100
[2017-01-31] MEDS: METOPROLOL TARTRATE 5 MG/5 ML VIAL IV PUSH SCH (04:00)
[2017-01-31] MEDS: CHLORHEXIDINE GLUCONATE 2 % 1 PACK (2 CLOTHS) TOP SCH (04:00)
[2017-01-31 06:33] LABS: HEMATOCRIT 43.6 % (35.0-46.0); MEAN CELL VOLUME 96.4 FL (80.0-100.0); MEAN CORPUSCULAR HEMOGLOBIN 31.6 PG (27.0-34.0); MEAN CORPUSCULAR HGB CONC 32.8 % (32.0-36.0); PLATELET COUNT 66 TH/MM3 (150-450); RED BLOOD COUNT 4.52 MIL/MM3 (4.00-5.30); RED CELL DISTRIBUTION WIDTH 26.4 % (11.6-17.2); WHITE BLOOD COUNT 8.7 TH/MM3 (4.0-11.0)
[2017-01-31 06:41] LABS: REVIEW FLAG FINAL
[2017-01-31] MEDS: INSULIN NovoLIN REGULAR SUPPLEMENTAL SCALE SQ SCH ×4 (07:00→21:00)
[2017-01-31 07:18] LABS: BICARBONATE 30.5 MEQ/L (21.0-32.0); POTASSIUM 3.1 MEQ/L (3.5-5.1)
--- NOTE | 2017-01-31 08:19 | PD.CARD.PN ---
Subjective Subjective Remarks Arousable. Nonverbal. Objective Medications Item Value Date Time Metoprolol 5 mg 01/30/17 1200 Tartrate Q4HR/IV PUSH 01/31/17 0400 (Lopressor Inj) Bumetanide 2 mg 01/28/17 0900 (Bumex Inj) BID@,18/IV PUSH 01/30/17 1718 Aspirin 81 mg 01/18/17 0900 (Aspirin Chew) DAILY/CHEW 01/30/17 0828 Vital Signs / I&O Vital Signs Date Time Temp Pulse Resp B/P Pulse Ox O2 Delivery O2 Flow Rate FiO2 01/31/17 06:00 98 01/31/17 05:00 98 01/31/17 04:00 106 01/31/17 03:00 98.2 95 26 93/63 99 01/31/17 03:00 111 01/31/17 02:00 110 01/31/17 01:00 106 01/31/17 00:00 106 01/30/17 23:00 104 01/30/17 23:00 97.5 104 28 111/66 98 01/30/17 22:00 154 01/30/17 21:00 90 01/30/17 20:00 90 01/30/17 19:00 99.1 90 24 98/63 98 01/30/17 19:00 90 01/30/17 19:00 98 Nasal Cannula 2.00 01/30/17 18:00 90 01/30/17 17:36 98 Nasal Cannula 2.00 01/30/17 17:00 90 01/30/17 16:25 98.7 89 24 95/63 98 01/30/17 16:00 90 01/30/17 15:00 90 01/30/17 14:00 90 01/30/17 13:00 90 01/30/17 12:00 98.0 93 24 102/57 99 01/30/17 12:00 90 01/30/17 12:00 Nasal Cannula 2.00 01/30/17 11:00 90 01/30/17 10:10 100 Nasal Cannula 2.00 01/30/17 10:00 90 01/30/17 09:00 90 I/O 01/30/17 01/30/17 01/30/17 01/31/17 01/31/17 01/31/17 07:00 15:00 23:00 07:00 15:00 23:00 Intake Total 480 ml 240 ml Output Total 1400 ml 675 ml Balance -920 ml -435 ml Intake Oral 480 ml 240 ml Output Urine Total 1400 ml 675 ml Physical Exam GENERAL: Well developed, well nourished. No acute distress. HEENT: Jugular venous pressure is normal. CHEST: Diminished breath sounds bases. CARDIAC: Regular rate and rhythm without S3, S4, or murmur. ABDOMEN: Soft, nontender, no hepatosplenomegaly. Bowel sounds present. EXTREMITIES: No clubbing, cyanosis, edema. Laboratory Laboratory Tests Test 01/31/17 05:00 White Blood Count 8.7 TH/MM3 Red Blood Count 4.52 MIL/MM3 Hemoglobin 14.3 GM/DL Hematocrit 43.6 % Mean Corpuscular Volume 96.4 FL Mean Corpuscular Hemoglobin 31.6 PG Mean Corpuscular Hemoglobin 32.8 % Concent Red Cell Distribution Width 26.4 % Platelet Count 66 TH/MM3 Mean Platelet Volume 10.8 FL Sodium Level 138 MEQ/L Potassium Level 3.1 MEQ/L Chloride Level 92 MEQ/L Carbon Dioxide Level 30.5 MEQ/L Anion Gap 16 MEQ/L Blood Urea Nitrogen 106 MG/DL Creatinine 2.37 MG/DL Estimat Glomerular Filtration 25 ML/MIN Rate Random Glucose 172 MG/DL Calcium Level 9.2 MG/DL Assessment and Plan Problem List: (1) Congestive heart failure Assessment and Plan: EF 20-25%. Vigorous diuresis achieved over the weekend. Creatinine stable. Patient getting some benefit from biventricular pacer. REC change bumetanide back to oral continue beta vimal, change to oral (2) Atrial flutter Assessment and Plan: Patient predominantly in atrial flutter or atrial tachycardia past few months. Patient poor candidate for anticoagulation therapy ; continues on aspirin. HR's fluctuating, mostly acceptable. Rec change metoprolol to oral. (3) CAD (coronary artery disease) Assessment and Plan: Stable. No definite angina symptoms. Rec continued conservative management of her severe CAD. Code Status alternative code Problem Qualifiers (1) Congestive heart failure: Qualified Code: I50.23 - Acute on chronic systolic congestive heart failure (2) Atrial flutter: Qualified Code: I48.92 - Atrial flutter, unspecified type (3) CAD (coronary artery disease): Qualified Code: I25.10 - Coronary artery disease involving [place] coronary artery of [place] heart without angina pectoris Walt Ambrosio MD Jan 31, 2017 08:19
[2017-01-31] MEDS: MEGESTROL ACETATE SUSP 400 MG/10 ML CUP PO SCH ×2 (08:52→17:31)
[2017-01-31] MEDS: DOCUSATE SODIUM 50 MG/SENNA 8.6 MG TAB PO SCH ×2 (08:53→23:37)
[2017-01-31] MEDS: POLYETHYLENE GLYCOL 17 GM PKG PO SCH (08:53)
[2017-01-31] MEDS: THIAMINE HCL 100 MG TAB PO SCH (08:53)
[2017-01-31] MEDS: ASPIRIN 81 MG CHEW TAB CHEW SCH (08:53)
[2017-01-31] MEDS: MULTIVITAMIN TAB PO SCH (08:53)
[2017-01-31] MEDS: SODIUM CHLORIDE 0.9% FLUSH 10 ML FLUSH IV FLUSH SCH ×2 (08:54→20:53)
[2017-01-31] MEDS: BUMETANIDE 1 MG TAB PO SCH ×2 (08:57→17:31)
[2017-01-31] MEDS: ARTIFICIAL TEARS OPTH SOLN 15 ML BTL EACH EYE SCH ×3 (09:00→17:32)
[2017-01-31] MEDS: LACTULOSE SYRUP 20 GM/30 ML CUP PO SCH ×2 (09:00→23:37)
[2017-01-31] MEDS ORDERED: POTASSIUM CHLORIDE 10 MEQ CONTROLLED RELEASE TAB PO ONE (09:30)
--- NOTE | 2017-01-31 10:45 | HHI.NPPN ---
Subjective General Problems: Hypertension Renal Failure: Acute Interval History She is more alert today. Creatinine is slightly higher today. Borderline hypotensive overnight. Additional Remarks (Dalia Almaguer) Review of Systems General Constitutional: Fatigue (Dalia Almaguer) Cardiovascular Cardiac: Edema (Dalia Almaguer) Skin Skin: Ulcers (Dalia Almaguer) Objective Data Data 01/30/17 01/31/17 19:00 07:00 Intake Total 240 ml Output Total 675 ml Balance -435 ml Intake Oral 240 ml Output Urine Total 675 ml Vital Signs Date Time Temp Pulse Resp B/P Pulse Ox O2 Delivery O2 Flow Rate FiO2 01/31/17 10:00 99 Nasal Cannula 2.00 01/31/17 09:16 97.8 90 18 106/50 100 01/31/17 06:00 98 01/31/17 05:00 98 01/31/17 04:00 106 01/31/17 03:00 98.2 95 26 93/63 99 01/31/17 03:00 111 01/31/17 02:00 110 01/31/17 01:00 106 01/31/17 00:00 106 01/30/17 23:00 104 01/30/17 23:00 97.5 104 28 111/66 98 01/30/17 22:00 154 01/30/17 21:00 90 01/30/17 20:00 90 01/30/17 19:00 99.1 90 24 98/63 98 01/30/17 19:00 90 01/30/17 19:00 98 Nasal Cannula 2.00 01/30/17 18:00 90 01/30/17 17:36 98 Nasal Cannula 2.00 01/30/17 17:00 90 01/30/17 16:25 98.7 89 24 95/63 98 01/30/17 16:00 90 01/30/17 15:00 90 01/30/17 14:00 90 01/30/17 13:00 90 01/30/17 12:00 98.0 93 24 102/57 99 01/30/17 12:00 90 01/30/17 12:00 Nasal Cannula 2.00 01/30/17 11:00 90 (Dalia Almaguer) -: 01/31/17 0500 01/31/17 0500 Imaging Last Impressions Chest X-Ray 01/26/17 0000 Signed Impressions: Service Date/Time: Thursday, January 26, 2017 12:34 - CONCLUSION: 1. Moderate bilateral pleural effusions with associated lower lobe airspace disease. 2. Stable enlargement of the cardiac silhouette. Alon Montenegro MD Upper Extremity Ultrasound 01/24/17 0000 Signed Impressions: Service Date/Time: Tuesday, January 24, 2017 08:53 - CONCLUSION: Normal examination for a patient of this age. Kip Arriaga MD Liver Ultrasound 01/22/17 0000 Signed Impressions: Service Date/Time: Sunday, January 22, 2017 14:51 - CONCLUSION: 1. Dilatation the common bile duct likely reflecting a reservoir following cholecystectomy. This could be correlated clinically and with the patient's laboratory biliary status. 2. Bilateral pleural effusions. Mello Oglesby MD Head CT 01/17/17 0000 Signed Impressions: Service Date/Time: Tuesday, January 17, 2017 17:13 - CONCLUSION: Negative for an acute process. Herve Fam MD FACR Chest CT 01/17/17 0000 Signed Impressions: Service Date/Time: Tuesday, January 17, 2017 17:18 - CONCLUSION: Cardiomegaly. Small right effusion. Mild basilar atelectasis. Mello Cameron MD Abdomen/Pelvis CT 01/17/17 0000 Signed Impressions: Service Date/Time: Tuesday, January 17, 2017 17:18 - CONCLUSION: Massive cardiomegaly without pericardial effusion. Minimal failure with small right pleural effusion and trace ascites. There is no gastric distention. Herve Fam MD FACR Tubes & Lines: Cavanaugh (Dalia Almaguer) Physical Exam General Appearance: No Acute Distress, Comfortable, Sleeping Appearance Remarks frail appearing (Dalia Almaguer) Throat Throat Exam: Oral Mucosa [place] & Moist (Dalia Almaguer) Neck Neck Exam: Neck Supple, Jugular Vein Distension (Dalia Almaguer) Pulmonary Resp Exam: Breath Sounds Equal, Decreased Bases, Diminished Breath Sounds, Poor Inspiratory Effort Resp Remarks scattered wheezing (Dalia Almaguer) Cardiology CV Exam: Irregular, Arrhythmia, Tachycardia, Pacemaker CV Remarks intermittent tachycardia, has A fib (Dalia Almaguer) Gastrointestinal/Abdomen GI Exam: Soft, Non-Tender, Positive Bowel Movement (Dalia Almaguer) Musculoskeletal MS Exam: Joints Intact, Normal Tone (Dalia Almaguer) Integumentary Skin Exam: Warm, Dry Skin Remarks bulla on bilateral upper extremities have opened, no drainage (Dalia Almaguer) Extremeties Extremities Exam: Moderate Edema, Dependent Edema (Dalia Almaguer) Neurologic Neuro Exam: Stuporous Neuro Remarks profound generalized weakness (Dalia Almaguer) Psychiatric Psych Exam: Appropriate Responses (Dalia Almaguer) VTE Prophylaxis Device: SCDs (Dalia Almaguer) Assessment/Plan Assessment Summary: PREMA/Acute Renal Failure, Fluid/Volume Overload, Proteinuria , Malnutrition, CHF, Hypotension, Diabetes Mellitus Electrolyte Assessment: Hypokalemia Problem List: (1) Acute kidney injury Plan: PREMA on CKD 3: Her baseline creatinine has been near 1.6-1.8. Suspected underlying cardiorenal syndrome; PREMA may be due to ATN secondary to hypoperfusion during episodes of V-tach and hypotension Renal function slightly worse Non oliguric, continue diuresis avoid IVF, nephrotoxic medications potassium has been replaced. (2) CHF (congestive heart failure) Plan: EF 20-25%, diuresed over the weekend Bumex changed to oral, she has had good response to diuretics weight improved monitor fluid status (3) Failure to thrive in adult Plan: Continue to follow goals of care with family recommend hospice, they have decided to continue aggressive measures she was started on appetite stimulant (4) Afib Plan: rate mostly controlled continue metoprolol, amiodarone and Cardizem have been discontinued cardiology following she has AICD in place (5) Metabolic acidosis Plan: improved, monitor (6) V-tach Plan: Resolved, continue to monitor cardiology has been consulted (7) Hyponatremia Plan: hypervolemic, has improved continue Loop diuretics Plan care home prognosis is poor. Not a candidate for aggressive renal intervention such as dialysis from renal prospective. (Dalia Almaguer) Plan patient was seen and examined. Bumex changed to PO. Agree with above assessment and plan. (Ashvin England MD) Dalia Almaguer Jan 31, 2017 10:45 Ashvin England MD Jan 31, 2017 20:23
[2017-01-31] MEDS ORDERED: POTASSIUM CHLORIDE 25 MEQ EFFERVESCENT TAB PO ONE (11:00)
--- NOTE | 2017-01-31 11:07 | HHI.PR ---
Subjective Remarks Follow-up CHF and diabetes mellitus. Patient arousable tries to communicate signaling she is short of breath on 3 L. Denies pain. Discussed with RN, no BM with generalized abdominal tenderness. Obtain KUB. Discussed with palliative care, will discuss with the family regarding PEG Objective Vitals Vital Signs Date Time Temp Pulse Resp B/P Pulse Ox O2 Delivery O2 Flow Rate FiO2 01/31/17 10:00 99 Nasal Cannula 2.00 01/31/17 09:16 97.8 90 18 106/50 100 01/31/17 06:00 98 01/31/17 05:00 98 01/31/17 04:00 106 01/31/17 03:00 98.2 95 26 93/63 99 01/31/17 03:00 111 01/31/17 02:00 110 01/31/17 01:00 106 01/31/17 00:00 106 01/30/17 23:00 104 01/30/17 23:00 97.5 104 28 111/66 98 01/30/17 22:00 154 01/30/17 21:00 90 01/30/17 20:00 90 01/30/17 19:00 99.1 90 24 98/63 98 01/30/17 19:00 90 01/30/17 19:00 98 Nasal Cannula 2.00 01/30/17 18:00 90 01/30/17 17:36 98 Nasal Cannula 2.00 01/30/17 17:00 90 01/30/17 16:25 98.7 89 24 95/63 98 01/30/17 16:00 90 01/30/17 15:00 90 01/30/17 14:00 90 01/30/17 13:00 90 01/30/17 12:00 98.0 93 24 102/57 99 01/30/17 12:00 90 01/30/17 12:00 Nasal Cannula 2.00 01/30/17 11:00 90 I/O 01/30/17 01/30/17 01/30/17 01/31/17 01/31/17 01/31/17 07:00 15:00 23:00 07:00 15:00 23:00 Intake Total 480 ml 240 ml Output Total 1400 ml 675 ml Balance -920 ml -435 ml Intake Oral 480 ml 240 ml Output Urine Total 1400 ml 675 ml Result Diagram: 01/31/17 0500 01/31/17 0500 Imaging Last Impressions Chest X-Ray 01/26/17 0000 Signed Impressions: Service Date/Time: Thursday, January 26, 2017 12:34 - CONCLUSION: 1. Moderate bilateral pleural effusions with associated lower lobe airspace disease. 2. Stable enlargement of the cardiac silhouette. Alon Montenegro MD Upper Extremity Ultrasound 01/24/17 0000 Signed Impressions: Service Date/Time: Tuesday, January 24, 2017 08:53 - CONCLUSION: Normal examination for a patient of this age. Kip Arriaga MD Liver Ultrasound 01/22/17 0000 Signed Impressions: Service Date/Time: Sunday, January 22, 2017 14:51 - CONCLUSION: 1. Dilatation the common bile duct likely reflecting a reservoir following cholecystectomy. This could be correlated clinically and with the patient's laboratory biliary status. 2. Bilateral pleural effusions. Mello Oglesby MD Head CT 01/17/17 0000 Signed Impressions: Service Date/Time: Tuesday, January 17, 2017 17:13 - CONCLUSION: Negative for an acute process. Herve Fam MD FACR Chest CT 01/17/17 0000 Signed Impressions: Service Date/Time: Tuesday, January 17, 2017 17:18 - CONCLUSION: Cardiomegaly. Small right effusion. Mild basilar atelectasis. Mello Cameron MD Abdomen/Pelvis CT 01/17/17 0000 Signed Impressions: Service Date/Time: Tuesday, January 17, 2017 17:18 - CONCLUSION: Massive cardiomegaly without pericardial effusion. Minimal failure with small right pleural effusion and trace ascites. There is no gastric distention. Herve Fam MD FACR Objective Remarks GENERAL: Weak easily arousable on 3 L nasal cannula SKIN: Warm and dry. HEAD: Normocephalic. EYES: No scleral icterus. No injection or drainage. NECK: Supple, trachea midline. CARDIOVASCULAR: Regular rate and rhythm RESPIRATORY: Breath sounds equal bilaterally. No accessory muscle use. GASTROINTESTINAL: Abdomen soft, seemed to have generalized tenderness, nondistended. MUSCULOSKELETAL: No cyanosis. Patient with dependent edema noted in the sacral area BACK: Nontender without obvious deformity. No CVA tenderness. Procedures AICD placement-deactivated 01/21 A/P Problem List: (1) Metabolic acidosis ICD Code: E87.2 Status: Resolved (2) NSTEMI (non-ST elevated myocardial infarction) ICD Code: I21.4 Status: Acute (3) Sepsis ICD Code: A41.9 Status: Resolved (4) Renal failure ICD Code: N19 Status: Acute (5) Implantable cardioverter-defibrillator generator end of life ICD Code: Z45.02 Status: Acute (6) Hyperkalemia ICD Code: E87.5 Status: Resolved (7) Atrial flutter ICD Code: I48.92 Status: Resolved (8) Congestive heart failure ICD Code: I50.9 Status: Chronic (9) COPD (chronic obstructive pulmonary disease) ICD Code: J44.9 Status: Chronic (10) Elevated troponin level ICD Code: R79.89 Status: Acute (11) CAD (coronary artery disease) ICD Code: I25.10 Status: Chronic (12) Impaired mobility and activities of daily living ICD Code: Z74.09 Status: Acute (13) Hemiparesis affecting dominant side as late effect of cerebrovascular accident (CVA) ICD Code: I69.359 Status: Chronic (14) HTN (hypertension) ICD Code: I10 Status: Chronic (15) CKD (chronic kidney disease) stage 3, GFR 30-59 ml/min ICD Code: N18.3 Status: Chronic (16) DM2 (diabetes mellitus, type 2) ICD Code: E11.9 Status: Chronic (17) Leukocytosis ICD Code: D72.829 Status: Acute (18) Lactic acidosis ICD Code: E87.2 Status: Acute (19) Hyperphosphatemia ICD Code: E83.39 Status: Resolved (20) Hypermagnesemia ICD Code: E83.41 Status: Resolved (21) Insomnia ICD Code: G47.00 Status: Acute (22) Failure to thrive in adult ICD Code: R62.7 Status: Acute (23) Severe sepsis with acute organ dysfunction ICD Code: A41.9 Status: Resolved Assessment and Plan 71yF with multiple acute on chronic medical problems, now with worsening oliguric PREMA. Cr worsening with restarting bumex and d/c fluids, but clinically appears volume overloaded, she continues with her medical problems, volume overload, pneumonia, heart failure. Still unlikely to recover. At family's request, continuing aggressive care. Poor prognosis. 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 Depression Failure to thrive Insomnia Lethargy Hold Zoloft 50 mg by mouth daily for depression secondary to patient's current lethargy Holding Restoril 7.5 mg daily at bedtime as home medication for insomnia Continue Megace 400 mg by mouth daily for failure to thrive CT Brain 01/17 revealed no acute intracranial findings Avoid all sedating type medications, and correction of hypoglycemia Ammonia persistently elevated, continue lactulose titrate to 3 loose stools per day increase to 30 ml twice a day CV: Severe sepsis with multisystem organ failure Chronic systolic heart failure ejection fraction 20%. Diuresing on Bumex History of atrial flutter status post ablation 10/[address] Velazquez on lopressor. Not a good candidate for anticoagulation per cards ct asa Hypertension. BP on the low side. Held spironolactone 25 mg at night due to hypotension and acute kidney injury. Dyslipidemia. 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 Echocardiogram 01/18-ejection fraction 20- 25%. Possible basal posterior and apical kinesis and severe hypokinesis of all other segments. Continue aspirin 81 mg by mouth daily 01/21 episode of V. tach . A. fib RVR amiodarone infusion initiated. 01/24 Started on amiodarone PO dc 2/2 hepatic issues Resp: History COPD Left pleural effusion by cliical exam vs atelectasis Nasal cannula to maintain saturations greater than equal to 92%, Repeat CXR. if goals- if aggressive with get an US guided thoracentesis if + effusion Incentive spirometry while awake Duo nebs every 6 hours and albuterol every 2 hours when necessary dyspnea CT chest 01/08 revealed massive cardiomegaly, small right pleural effusion 01/18 Metabolic acidosis was noted patient was placed on bicarbonate infusion, anion gap improved, discontinued on 01/19, restarted 01/21 01/23 bicarbonate level 34, discontinue sodium bicarbonate infusion GI: Nausea/vomiting-resolved Transaminitis 1800 ADA diet Protonix for GI prophylaxis PeriColace for bowel regimen On Megace for anorexia. CT abdomen/pelvis revealed no signs of bowel obstruction. 01/21 liver enzymes continue to increase, with severe hypoglycemia , shock liver ? GI consulted Consider PEG or TPN call her car in progress. Discussed with palliative care who will contact family to address nutrition issues Repeat KUB today to evaluate for ileus or obstruction : Cavanaugh catheter for accurate I's and O's in a critically ill bedridden patient Endo: Diabetes mellitus. Uncontrolled Hypoglycemia Sliding-scale insulin with Accu-Cheks Holding glipizide 10 mg before meals secondary to poor oral intake TSH and cortisol WNL Renal: Acute kidney injury in the setting of chronic kidney disease stage 3. May have ATN secondary to episode of hypo-tension during A. fib and V. 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 Noted 5 kg wt gain since admission. 01/24: restarted IV bumex per nephrology. Not a candidate for dialysis per renal 01/31/17 switch to by mouth Bumex and monitor Heme: Leukocytosis-resolved Elevated PT/INR and PTT Monitor CBC. Follow trends Holding Eliquis 5 mg BID, INR 1.3 01/17 fibrinogen WNL ID: Severe sepsis source pneumonia aspiration? UTI? Zosyn, vancomycin discontinued 08/26 worsening creatinine 01/21 ID following- Dr. Johnson, all antibiotics discontinued 01/22 per ID Pertinent cultures - Blood cultures 2 01/17 -Bacillus - Urine culture 01/17 -negative - influenza A & B-negative FEN: Hyponatremia Hyperkalemia-resolved Hyper-magnesium Hyperphosphatemia 01/21 IVF D5NS @42cc/hr Received hyperkalemia protocol in ED. 01/23 sodium bicarbonate discontinued MSK: PT evaluate and treat 01/21 Bilateral upper arm edema-ultrasound bilateral lower extremities negative Access - Utilize peripheral IV. Change PIV's 01/21 Central line if indicated Prophylaxis - GI -Protonix - DVT - SCD/holding pharmacological prophylaxis with eliquis is due to acute kidney injury creatinine greater than 1.5 . Also no chemical prophylaxis due to thrombocytopenia Family discussions: 01/22 V. tach episode, family discussion with palliative care medicine. It was decided alternate CODE STATUS be initiated, ACLS drugs only. AICD was interrogated and deactivated. Possible plan for transfer back to hospice, will consult nephrology for any additional recommendations and further discussion with palliative medicine regarding disposition. 01/23: Further interventions planned. Consult with palliative care medicine regarding transition back to hospice care on Tuesday. Patient is not a candidate for dialysis per nephrology, Dr. Cunningham, no further interventions planned. 01/24: palliative met and family continues to want aggressive medical care. Discharge Planning family has refused hospice. Continues in [facility] for cardiorenal syndrome Problem Qualifiers (1) Sepsis: Qualified Code: A41.9 - Sepsis, due to unspecified organism (2) Renal failure: Qualified Code: N17.9 - Acute renal failure superimposed on stage 3 chronic kidney disease, unspecified acute renal failure type (3) Atrial flutter: Qualified Code: I48.92 - Atrial flutter, unspecified type (4) Congestive heart failure: Qualified Code: I50.23 - Acute on chronic systolic congestive heart failure (5) COPD (chronic obstructive pulmonary disease): Qualified Code: J44.9 - Chronic obstructive pulmonary disease, unspecified COPD type (6) CAD (coronary artery disease): Qualified Code: I25.10 - Coronary artery disease involving [place] coronary artery of [place] heart without angina pectoris (7) HTN (hypertension): Qualified Code: I15.9 - Secondary hypertension (8) DM2 (diabetes mellitus, type 2): Qualified Code: E11.8 - Type 2 diabetes mellitus with complication, without long-term current use of insulin (9) Leukocytosis: Qualified Code: D72.829 - Leukocytosis, unspecified type (10) Insomnia: Qualified Code: G47.00 - Insomnia, unspecified type Hudson Taylor MD Jan 31, 2017 11:07
--- NOTE | 2017-01-31 13:50 | RADRPT ---
EXAM DATE/TIME: 01/31/2017 13:08 [facility] COMPARISON: No previous studies available for comparison. INDICATIONS : Abdominal pain. MEDICAL HISTORY : Congestive heart failure. Hypercholesterolemia. CVA. CAD. HTN. COPD. Asthma. Dyspnea. Diabetes. SURGICAL HISTORY : Pacemaker. Appendectomy. Cholecystectomy. Hysterectomy. Blood transfusions. ENCOUNTER: Initial ACUITY: 1 day PAIN SCORE: Non-responsive. LOCATION: Abdomen. FINDINGS: The bowel gas is nonspecific. There are no signs of obstruction or free air for technique. No defini te calcified stones are identified for technique. Moderate stool is present throughout the colon. CONCLUSION: Unremarkable study except for stool. Cade Hernandes MD on January 31, 2017 at 13:46 Board Certified Radiologist. This report was verified electronically.
[2017-01-31] MEDS: METOPROLOL TARTRATE 25 MG TAB PO SCH ×2 (14:30→23:37)
--- NOTE | 2017-01-31 17:25 | HHI.HCPN ---
Reason for visit a. To assist with evaluation and management of symptoms including: Confusion , debility, poor appetite, pain b. To assist medical decision maker(s) with: better understanding of current medical conditions; weighing benefits/burdens of medical treatment options; making medical treatment decisions. . Subjective/Interval History Patient was seen and assessed in room 251. Patient opens eyes briefly to verbal stimuli but does not focus or track; falling asleep during exam. Patient does not answer questions, does not follow commands. No acute distress noted, and the patient does not appear to be in pain or short of breath. Tolerating 2L oxygen via nasal cannula with saturations in the high 90s. WBC: 8.7, hemoglobin 14.3, hematocrit 43.6, platelets 66. Sodium: 138, potassium 3.1, chloride 92, carbon dioxide 30.5, glucose 172, calcium 9.2 BUN: 106, creatinine 2.37, GFR 25 KUB today revealed no signs of obstruction or free air; no definite calcified stones are identified; moderate stool is present throughout the colon. LBM: 2016. Patient's appetite is extremely poor, approximately 10% of meals. Speech therapy continues to follow and dietary has been reconsulted for calorie count which will be completed on 02/02/2017. Per notes, patient ate 0% of her breakfast this morning and did not drink Glucerna. Discussed PEG tube placement (weighing the benefits vs. burdens) with patient's daughter via telephone. Patient daughter (Fred) indicates she and her family I trying to make plans for the patient to fly to [place] later this week. They do not want to make a decision on PEG placement and artificial nutrition until they determine if the patient can fly home. Unfortunately given the patient's current condition, it is unlikely she will be able to tolerate travel at this time. . Advance Directives Advance Directive Specifics Documented care wishes: Patient's family states the patient completed her "5 wishes", but it cannot be found at this time. No living will was completed. . Significant change in goals: Family would like to arrange for the patient to fly back to [place] later this week. I explained that given the patient's current clinical condition, it is unlikely she will be able to tolerate traveling. Objective Vital Signs Date Time Temp Pulse Resp B/P Pulse Ox O2 Delivery O2 Flow Rate FiO2 01/31/17 14:00 90 01/31/17 13:00 90 01/31/17 12:21 Nasal Cannula 3.00 01/31/17 12:00 89 01/31/17 12:00 98.7 91 22 106/52 98 01/31/17 11:00 90 01/31/17 10:00 92 01/31/17 10:00 99 Nasal Cannula 2.00 01/31/17 09:16 97.8 90 18 106/50 100 01/31/17 09:00 90 01/31/17 08:00 98 01/31/17 07:00 89 01/31/17 07:00 100 01/31/17 06:00 98 01/31/17 05:00 98 01/31/17 04:00 106 01/31/17 03:00 98.2 95 26 93/63 99 01/31/17 03:00 111 01/31/17 02:00 110 01/31/17 01:00 106 01/31/17 00:00 106 01/30/17 23:00 104 01/30/17 23:00 97.5 104 28 111/66 98 01/30/17 22:00 154 01/30/17 21:00 90 01/30/17 20:00 90 01/30/17 19:00 99.1 90 24 98/63 98 01/30/17 19:00 90 01/30/17 19:00 98 Nasal Cannula 2.00 01/30/17 18:00 90 01/30/17 17:36 98 Nasal Cannula 2.00 Intake & Output 01/31/17 01/31/17 07:00 19:00 Intake Total 240 ml Output Total 675 ml Balance -435 ml Intake Oral 240 ml Output Urine Total 675 ml . Physical Exam CONSTITUTIONAL/GENERAL: This is a frail, elderly female patient with significant weakness and fatigue in no acute distress TUBES/LINES/DRAINS: PIV, SCD, Cavanaugh catheter, nasal cannula SKIN: No jaundice, rashes, or lesions. Open areas on forearms bilaterally. Skin temperature appropriate. Not diaphoretic. . CARDIOVASCULAR: Irregularly irregular. No JVD. peripheral pulses palpable RESPIRATORY/CHEST: Symmetric, unlabored respirations, NC O2. Breath sounds diminished bilaterally. GASTROINTESTINAL: Abdomen soft, non-tender, nondistended. Bowel sounds present. GENITOURINARY: Without palpable bladder distension. Cavanaugh catheter in place. NEUROLOGICAL: Obtunded. Opens eyes to verbal stimuli briefly but does not focus or track. Does not respond to questions or follow commands. PSYCHIATRIC: No obvious anxiety/depression/ flat affect. . Diagnostic Tests Laboratory Laboratory Tests Test 01/28/17 01/29/17 01/30/17 01/30/17 22:53 04:31 04:27 04:42 Lactic Acid Level 1.7 mmol/L (0.4-2.0) White Blood Count 9.8 TH/MM3 11.4 TH/MM3 (4.0-11.0) (4.0-11.0) Red Blood Count 4.26 MIL/MM3 4.80 MIL/MM3 (4.00-5.30) (4.00-5.30) Hemoglobin 13.1 GM/DL 15.2 GM/DL (11.6-15.3) (11.6-15.3) Hematocrit 41.3 % 46.6 % (35.0-46.0) (35.0-46.0) Mean Corpuscular Volume 96.8 FL 97.1 FL (80.0-100.0) (80.0-100.0) Mean Corpuscular Hemoglobin 30.8 PG 31.8 PG (27.0-34.0) (27.0-34.0) Mean Corpuscular Hemoglobin 31.8 % 32.7 % Concent (32.0-36.0) (32.0-36.0) Red Cell Distribution Width 24.0 % 25.6 % (11.6-17.2) (11.6-17.2) Platelet Count 49 TH/MM3 50 TH/MM3 (150-450) (150-450) Mean Platelet Volume 9.3 FL 10.2 FL (7.0-11.0) (7.0-11.0) Sodium Level 133 MEQ/L 133 MEQ/L (136-145) (136-145) Potassium Level 3.4 MEQ/L 3.6 MEQ/L (3.5-5.1) (3.5-5.1) Chloride Level 88 MEQ/L 90 MEQ/L (98-107) (98-107) Carbon Dioxide Level 32.3 MEQ/L 31.2 MEQ/L (21.0-32.0) (21.0-32.0) Anion Gap 13 MEQ/L (5-15) 12 MEQ/L (5-15) Blood Urea Nitrogen 107 MG/DL 92 MG/DL (7-18) (7-18) Creatinine 2.64 MG/DL 2.25 MG/DL (0.50-1.00) (0.50-1.00) Estimat Glomerular Filtration 22 ML/MIN (>89) 26 ML/MIN (>89) Rate Random Glucose 163 MG/DL 167 MG/DL (74-106) (74-106) Calcium Level 9.3 MG/DL 9.6 MG/DL (8.5-10.1) (8.5-10.1) Magnesium Level 2.3 MG/DL (1.5-2.5) Total Bilirubin 2.7 MG/DL (0.2-1.0) Direct Bilirubin 1.3 MG/DL (0.0-0.2) Indirect Bilirubin 1.4 MG/DL (0.0-0.8) Aspartate Amino Transf 78 U/L (15-37) (AST/SGOT) Alanine Aminotransferase 188 U/L (10-53) (ALT/SGPT) Alkaline Phosphatase 219 U/L (45-117) Total Protein 6.4 GM/DL (6.4-8.2) Albumin 2.8 GM/DL (3.4-5.0) Test 01/31/17 05:00 White Blood Count 8.7 TH/MM3 (4.0-11.0) Red Blood Count 4.52 MIL/MM3 (4.00-5.30) Hemoglobin 14.3 GM/DL (11.6-15.3) Hematocrit 43.6 % (35.0-46.0) Mean Corpuscular Volume 96.4 FL (80.0-100.0) Mean Corpuscular Hemoglobin 31.6 PG (27.0-34.0) Mean Corpuscular Hemoglobin 32.8 % Concent (32.0-36.0) Red Cell Distribution Width 26.4 % (11.6-17.2) Platelet Count 66 TH/MM3 (150-450) Mean Platelet Volume 10.8 FL (7.0-11.0) Sodium Level 138 MEQ/L (136-145) Potassium Level 3.1 MEQ/L (3.5-5.1) Chloride Level 92 MEQ/L (98-107) Carbon Dioxide Level 30.5 MEQ/L (21.0-32.0) Anion Gap 16 MEQ/L (5-15) Blood Urea Nitrogen 106 MG/DL (7-18) Creatinine 2.37 MG/DL (0.50-1.00) Estimat Glomerular Filtration 25 ML/MIN (>89) Rate Random Glucose 172 MG/DL (74-106) Calcium Level 9.2 MG/DL (8.5-10.1) . Result Diagram: 01/31/17 0500 01/31/17 0500 Imaging Last 72 hours Impressions Abdomen X-Ray 01/31/17 0000 Signed Impressions: Service Date/Time: Tuesday, January 31, 2017 13:08 - CONCLUSION: Unremarkable study except for stool. K. Viet Hernandes MD . Assessment and Plan Disease Oriented Problem List: (1) Atrial flutter (2) Cardiomyopathy (3) Cardiac LV ejection fraction 10-20% (4) Acute kidney injury (5) History of CVA (cerebrovascular accident) (6) Elevated troponin (7) Transaminitis (8) Hypertension (9) CHF (congestive heart failure) (10) COPD (chronic obstructive pulmonary disease) (11) Severe sepsis with acute organ dysfunction Symptom Scale: (1) Poor appetite (2) Debility (3) Confusion (4) Pain Pertinent Non-Medical Issues Psychosocial: Patient is single and lives alone in [place]. She has a high school education. 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 Patient had 2 daughters and 1 son; her son had ESRD and is . Spiritual: [employer]an sanya Legal: Per [place] statutes, in the absence of written advanced directives healthcare proxy decision-making falls to the children's 2 adult daughters, Triny and Lissette Ethical issues impacting care: No known ethical issues impacting care. . Important Contacts Lissette Salinas, daughter: [phone] Triny Amor, daughter: [phone] . Prognosis Ms. Salinas is a 71 yo female with a complicated medical history that includes severe cardiomyopathy with EF 20%. Status post CVA with right-sided hemiparesis and aphasia and October,. The patient has experienced an acute decline, hospitalized 5 times in the past 3 months. Patient is deconditioned with ongoing complications. Currently hospitalized with and multi-system organ dysfunction. Prognosis is poor. . Code Status: Alternative Code (ACLS medications only) Plan * ALTERNATE CODE- ACLS medications only * Decision-making: Per [place] statutes, in the absence of written advanced directives healthcare proxy decision-making falls to the patient's 2 adult daughters (Triny and Lissette). * Pacemaker/AICD deactivated 01/22/2017 * Hospice following, family indicating they are not ready to transition to comfort focus care at this time * Symptom managementdebility: Patient has a complex medical history; she has experienced a recent decline as evidenced by 5 hospitalizations in the past 3 months. Patient was transferred to rehabilitation after her most recent hospitalization in 11/2016, and her functional status reportedly improved. Having ongoing setbacks and complications, now hospitalized with sepsis and multiorgan dysfunction. Prognosis is poor. Physical therapy and occasional therapy following * Symptom managementpain: Patient's daughter reports the patient' having intermittent pain. Possible contributing factors include impaired skin integrity , impaired circulation, immobility, bedbound status, invasiveness lines, cachexia. Current orders for PRN Orondo (5-325mg tab) q4 hours PO for pain rated 15 and PRN Morphine 2 mg IV q2 hours for pain rated 610. No medications were administered in the past 24 hours.Palliative care will continue to monitor PRN requirements and make recommendations as indicated. * Symptom managementpoor appetite: Patient's appetite is extremely poor, approximately 10% of meals. Speech therapy continues to follow and dietary has been reconsulted for calorie count which will be completed on 02/02/2017. Per notes, patient ate 0% of her breakfast this morning and did not drink Glucerna. Discussed PEG tube placement (weighing the benefits vs. burdens) with patient's daughter via telephone. * Patient daughter (Fred) indicates she and her family I trying to make plans for the patient to fly to [place] later this week. They do not want to make a decision on PEG placement and artificial nutrition until they determine if the patient can fly home. Unfortunately given the patient's current condition, it is unlikely she will be able to tolerate travel at this time. * Discussed patient with Dr. Taylor and nurse, Barbara. * Palliative care will continue to follow this patient throughout her hospitalization to establish trust, assist with symptom management and clarification of medical treatment goals. Pita Mccartney Jan 31, 2017 17:25
[2017-01-31] MEDS ORDERED: DILTIAZEM HCL 25 MG/5 ML VIAL IV ONE (20:30)
[2017-02-01] VITALS (21 sets, daily range): BP systolic 46–109; BP diastolic 34–57; PULSE 96–144; RESP 18–40; TEMP 97.2–100.5; O2SAT 97–100
[2017-02-01] MEDS ORDERED: DILTIAZEM HCL 25 MG/5 ML VIAL IV ONE (00:30)
[2017-02-01] MEDS ORDERED: DEXTROSE 5% IN WATE 1000ML INJ 1,000 ML IV SCH (00:30)
[2017-02-01 02:21] LABS: AUTOMATED NEUTROPHIL # 5.6 TH/MM3 (1.8-7.7); BASOPHIL % 0.1 % (0.0-2.0); EOSINOPHIL # 0.1 TH/MM3 (0-0.4); EOSINOPHIL % 0.9 % (0.0-4.0); HEMATOCRIT 45.6 % (35.0-46.0); LYMPH % 4.8 % (9.0-44.0); LYMPHOCYTE # 0.3 TH/MM3 (1.0-4.8); MEAN CELL VOLUME 96.4 FL (80.0-100.0); MEAN CORPUSCULAR HEMOGLOBIN 31.2 PG (27.0-34.0); MEAN CORPUSCULAR HGB CONC 32.4 % (32.0-36.0); NEUT % 84.2 % (16.0-70.0); PLATELET COUNT 58 TH/MM3 (150-450); RED BLOOD COUNT 4.73 MIL/MM3 (4.00-5.30); RED CELL DISTRIBUTION WIDTH 25.6 % (11.6-17.2); WHITE BLOOD COUNT 6.6 TH/MM3 (4.0-11.0)
[2017-02-01 02:25] LABS: HEMO FLAGS AUTO DIFF
[2017-02-01 02:41] LABS: MAGNESIUM 2.2 MG/DL (1.5-2.5); POTASSIUM 4.1 MEQ/L (3.5-5.1)
[2017-02-01 03:26] LABS: BANDS 44 % (0-6); METAMYELOCYTES 13 % (0-1); MYELOCYTES 4 % (0-0); NEUTROPHIL # MANUAL DIFF 6.1 TH/MM3 (1.8-7.7); POLYS (SEG NEUTROPHILS) 31 % (16-70); WBC DIFF SAMPLE 100
[2017-02-01 03:27] LABS: DOHLE BODIES PRESENT (NONE SEEN); PLATELET ESTIMATE SMEAR LOW (NORMAL); PLATELET MORPHOLOGY NORMAL (NORMAL); TOXIC VACUOLATION PRESENT (NONE SEEN)
[2017-02-01 03:29] LABS: OVALOCYTES 1+ (NORMAL)
[2017-02-01 03:30] LABS: SCAN/DIFF FINAL DIFF MANUAL
[2017-02-01] MEDS: CHLORHEXIDINE GLUCONATE 2 % 1 PACK (2 CLOTHS) TOP SCH (04:00)
[2017-02-01 06:02] LABS: BICARBONATE 28.9 MEQ/L (21.0-32.0); MAGNESIUM 2.3 MG/DL (1.5-2.5)
[2017-02-01] MEDS: METOPROLOL TARTRATE 25 MG TAB PO SCH (06:19)
[2017-02-01] MEDS: INSULIN NovoLIN REGULAR SUPPLEMENTAL SCALE SQ SCH ×2 (07:00→11:00)
--- NOTE | 2017-02-01 08:08 | PD.CARD.PN ---
Subjective Subjective Remarks Resting comfortably. Nonverbal. Objective Medications Item Value Date Time Metoprolol 12.5 mg 01/31/17 1400 Tartrate Q8HR/PO 02/01/17 0619 (Lopressor) Bumetanide 2 mg 01/31/17 0900 (Bumetanide) BID@09,18/PO 01/31/17 1731 Aspirin 81 mg 01/18/17 0900 (Aspirin Chew) DAILY/CHEW 01/31/17 0853 Vital Signs / I&O Vital Signs Date Time Temp Pulse Resp B/P Pulse Ox O2 Delivery O2 Flow Rate FiO2 02/01/17 08:00 97.9 110 18 109/57 100 01/31/17 19:00 97.4 142 24 105/54 98 01/31/17 18:00 90 01/31/17 17:00 90 01/31/17 16:00 97.8 90 22 104/66 100 01/31/17 16:00 92 01/31/17 15:00 92 01/31/17 14:00 90 01/31/17 13:00 90 01/31/17 12:21 Nasal Cannula 3.00 01/31/17 12:00 89 01/31/17 12:00 98.7 91 22 106/52 98 01/31/17 11:00 90 01/31/17 10:00 92 01/31/17 10:00 99 Nasal Cannula 2.00 01/31/17 09:16 97.8 90 18 106/50 100 01/31/17 09:00 90 I/O 01/31/17 01/31/17 01/31/17 02/01/17 02/01/17 02/01/17 07:00 15:00 23:00 07:00 15:00 23:00 Intake Total 240 ml 500 ml 120 ml Output Total 675 ml 600 ml 350 ml Balance -435 ml -100 ml -230 ml Intake Oral 240 ml 500 ml 120 ml Output Urine Total 675 ml 600 ml 350 ml Physical Exam GENERAL: No acute distress. HEENT: Jugular venous pressure 7-8 cm water. CHEST: Diminished breath sounds bases. CARDIAC: Tachycardic irregular rhythm without S3, S4, or murmur. ABDOMEN: Soft, nontender, no hepatosplenomegaly. Bowel sounds present. EXTREMITIES: No clubbing, cyanosis, edema. Laboratory Laboratory Tests Test 02/01/17 02/01/17 02:08 04:48 White Blood Count 6.6 TH/MM3 Red Blood Count 4.73 MIL/MM3 Hemoglobin 14.8 GM/DL Hematocrit 45.6 % Mean Corpuscular Volume 96.4 FL Mean Corpuscular Hemoglobin 31.2 PG Mean Corpuscular Hemoglobin 32.4 % Concent Red Cell Distribution Width 25.6 % Platelet Count 58 TH/MM3 Mean Platelet Volume 10.9 FL Neutrophils (%) (Auto) 84.2 % Lymphocytes (%) (Auto) 4.8 % Monocytes (%) (Auto) 10.0 % Eosinophils (%) (Auto) 0.9 % Basophils (%) (Auto) 0.1 % Neutrophils # (Auto) 5.6 TH/MM3 Lymphocytes # (Auto) 0.3 TH/MM3 Monocytes # (Auto) 0.7 TH/MM3 Eosinophils # (Auto) 0.1 TH/MM3 Basophils # (Auto) 0.0 TH/MM3 CBC Comment AUTO DIFF Differential Total Cells 100 Counted Neutrophils % (Manual) 31 % Band Neutrophils % 44 % Lymphocytes % 3 % Monocytes % 5 % Neutrophils # (Manual) 6.1 TH/MM3 Metamyelocytes 13 % Myelocytes 4 % Differential Comment FINAL DIFF MANUAL Toxic Vacuolation PRESENT Dohle Bodies PRESENT Platelet Estimate LOW Platelet Morphology Comment NORMAL Basophilic Stippling FAINT Ovalocytes 1+ Sodium Level 137 MEQ/L 138 MEQ/L Potassium Level 4.1 MEQ/L 4.0 MEQ/L Chloride Level 94 MEQ/L 93 MEQ/L Carbon Dioxide Level 28.0 MEQ/L 28.9 MEQ/L Anion Gap 15 MEQ/L 16 MEQ/L Blood Urea Nitrogen 109 MG/DL 111 MG/DL Creatinine 2.23 MG/DL 2.38 MG/DL Estimat Glomerular Filtration 26 ML/MIN 24 ML/MIN Rate Random Glucose 180 MG/DL 179 MG/DL Calcium Level 9.2 MG/DL 9.2 MG/DL Magnesium Level 2.2 MG/DL 2.3 MG/DL Imaging Last 48 hours Impressions Abdomen X-Ray 01/31/17 0000 Signed Impressions: Service Date/Time: Tuesday, January 31, 2017 13:08 - CONCLUSION: Unremarkable study except for stool. K. Viet Hernandes MD Assessment and Plan Problem List: (1) CAD (coronary artery disease) Assessment and Plan: Stable. No definite angina symptoms. Rec continued conservative management of her severe CAD. (2) Congestive heart failure Assessment and Plan: EF 20-25%. Stable overnight. Creatinine stable. HR's back up, losing benefit from biventricular pacer. Back up rate on pacer set at 90. REC cont oral bumetanide continue beta vimal, increase dose no RUPALI-I or ARB with her CRI (3) Atrial flutter Assessment and Plan: Patient predominantly in atrial flutter or atrial tachycardia past few months. Patient poor candidate for anticoagulation therapy ; continues on aspirin. HR's fluctuating, mostly mildly elevated past 12 hours. Rec increase metoprolol dosing. Code Status alternative code Problem Qualifiers (1) CAD (coronary artery disease): Qualified Code: I25.10 - Coronary artery disease involving [place] coronary artery of [place] heart without angina pectoris (2) Congestive heart failure: Qualified Code: I50.23 - Acute on chronic systolic congestive heart failure (3) Atrial flutter: Qualified Code: I48.92 - Atrial flutter, unspecified type Walt Ambrosio MD Feb 01, 2017 08:07
--- NOTE | 2017-02-01 08:53 | HHI.PR ---
Subjective Remarks Follow-up atrial flutter. RVR overnight required IV Cardizem push. Lethargic not taking po. Dw sister from [place]. Daughters need to decide re TF and NGT/ PEG. Dw RN and CM Objective Vitals Vital Signs Date Time Temp Pulse Resp B/P Pulse Ox O2 Delivery O2 Flow Rate FiO2 02/01/17 08:00 97.9 110 18 109/57 100 02/01/17 03:00 97.2 143 30 83/53 97 02/01/17 02:30 89/55 02/01/17 02:00 88/54 02/01/17 00:30 98.9 144 26 106/57 98 01/31/17 19:00 98 Nasal Cannula 3.00 01/31/17 19:00 97.4 142 24 105/54 98 01/31/17 18:00 90 01/31/17 17:00 90 01/31/17 16:00 97.8 90 22 104/66 100 01/31/17 16:00 92 01/31/17 15:00 92 01/31/17 14:00 90 01/31/17 13:00 90 01/31/17 12:21 Nasal Cannula 3.00 01/31/17 12:00 89 01/31/17 12:00 98.7 91 22 106/52 98 01/31/17 11:00 90 01/31/17 10:00 92 01/31/17 10:00 99 Nasal Cannula 2.00 01/31/17 09:16 97.8 90 18 106/50 100 01/31/17 09:00 90 I/O 01/31/17 01/31/17 01/31/17 02/01/17 02/01/17 02/01/17 07:00 15:00 23:00 07:00 15:00 23:00 Intake Total 240 ml 500 ml 120 ml Output Total 675 ml 600 ml 350 ml Balance -435 ml -100 ml -230 ml Intake Oral 240 ml 500 ml 120 ml Output Urine Total 675 ml 600 ml 350 ml Result Diagram: 02/01/17 0208 02/01/17 0448 Imaging Last Impressions Abdomen X-Ray 01/31/17 0000 Signed Impressions: Service Date/Time: Tuesday, January 31, 2017 13:08 - CONCLUSION: Unremarkable study except for stool. KCally Hernandes MD Chest X-Ray 01/26/17 0000 Signed Impressions: Service Date/Time: Thursday, January 26, 2017 12:34 - CONCLUSION: 1. Moderate bilateral pleural effusions with associated lower lobe airspace disease. 2. Stable enlargement of the cardiac silhouette. Alon Montenegro MD Upper Extremity Ultrasound 01/24/17 0000 Signed Impressions: Service Date/Time: Tuesday, January 24, 2017 08:53 - CONCLUSION: Normal examination for a patient of this age. Kip Arriaga MD Liver Ultrasound 01/22/17 0000 Signed Impressions: Service Date/Time: Sunday, January 22, 2017 14:51 - CONCLUSION: 1. Dilatation the common bile duct likely reflecting a reservoir following cholecystectomy. This could be correlated clinically and with the patient's laboratory biliary status. 2. Bilateral pleural effusions. Mello Oglesby MD Head CT 01/17/17 0000 Signed Impressions: Service Date/Time: Tuesday, January 17, 2017 17:13 - CONCLUSION: Negative for an acute process. Herve Fam MD FACR Chest CT 01/17/17 0000 Signed Impressions: Service Date/Time: Tuesday, January 17, 2017 17:18 - CONCLUSION: Cardiomegaly. Small right effusion. Mild basilar atelectasis. Mello Cameron MD Abdomen/Pelvis CT 01/17/17 0000 Signed Impressions: Service Date/Time: Tuesday, January 17, 2017 17:18 - CONCLUSION: Massive cardiomegaly without pericardial effusion. Minimal failure with small right pleural effusion and trace ascites. There is no gastric distention. Herve Fam MD FACR Objective Remarks GENERAL: Weak easily arousable on 3 L nasal cannula SKIN: Warm and dry. HEAD: Normocephalic. EYES: No scleral icterus. No injection or drainage. NECK: Supple, trachea midline. CARDIOVASCULAR: Tachycardic RESPIRATORY: Breath sounds equal bilaterally. No accessory muscle use. GASTROINTESTINAL: Abdomen soft, seemed to have generalized tenderness, nondistended. MUSCULOSKELETAL: No cyanosis. Patient with dependent edema noted in the sacral area BACK: Nontender without obvious deformity. No CVA tenderness. Procedures AICD placement-deactivated 01/21 A/P Problem List: (1) Metabolic acidosis ICD Code: E87.2 Status: Resolved (2) NSTEMI (non-ST elevated myocardial infarction) ICD Code: I21.4 Status: Acute (3) Sepsis ICD Code: A41.9 Status: Resolved (4) Renal failure ICD Code: N19 Status: Acute (5) Implantable cardioverter-defibrillator generator end of life ICD Code: Z45.02 Status: Acute (6) Hyperkalemia ICD Code: E87.5 Status: Resolved (7) Atrial flutter ICD Code: I48.92 Status: Resolved (8) Congestive heart failure ICD Code: I50.9 Status: Chronic (9) COPD (chronic obstructive pulmonary disease) ICD Code: J44.9 Status: Chronic (10) Elevated troponin level ICD Code: R79.89 Status: Acute (11) CAD (coronary artery disease) ICD Code: I25.10 Status: Chronic (12) Impaired mobility and activities of daily living ICD Code: Z74.09 Status: Acute (13) Hemiparesis affecting dominant side as late effect of cerebrovascular accident (CVA) ICD Code: I69.359 Status: Chronic (14) HTN (hypertension) ICD Code: I10 Status: Chronic (15) CKD (chronic kidney disease) stage 3, GFR 30-59 ml/min ICD Code: N18.3 Status: Chronic (16) DM2 (diabetes mellitus, type 2) ICD Code: E11.9 Status: Chronic (17) Leukocytosis ICD Code: D72.829 Status: Acute (18) Lactic acidosis ICD Code: E87.2 Status: Acute (19) Hyperphosphatemia ICD Code: E83.39 Status: Resolved (20) Hypermagnesemia ICD Code: E83.41 Status: Resolved (21) Insomnia ICD Code: G47.00 Status: Acute (22) Failure to thrive in adult ICD Code: R62.7 Status: Acute (23) Severe sepsis with acute organ dysfunction ICD Code: A41.9 Status: Resolved Assessment and Plan 71yF with multiple acute on chronic medical problems, now with worsening oliguric PREMA. Cr worsening with restarting bumex and d/c fluids, but clinically appears volume overloaded, she continues with her medical problems, volume overload, pneumonia, heart failure. Still unlikely to recover. At family's request, continuing aggressive care. Poor prognosis. 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 Depression Failure to thrive Insomnia Lethargy Hold Zoloft 50 mg by mouth daily for depression secondary to patient's current lethargy Holding Restoril 7.5 mg daily at bedtime as home medication for insomnia Continue Megace 400 mg by mouth daily for failure to thrive CT Brain 01/17 revealed no acute intracranial findings Avoid all sedating type medications, and correction of hypoglycemia Ammonia persistently elevated, continue lactulose titrate to 3 loose stools per day increase to 30 ml twice a day CV: Severe sepsis with multisystem organ failure Chronic systolic heart failure ejection fraction 20%. Diuresing on Bumex. IV Bumex prn if not taking po History of atrial flutter status post ablation 10/[address] Velazquez on lopressor. RVR last night required IV Cardizem push. Lopressor increased when monitor on telemetry. Not a good candidate for anticoagulation per cards ct asa. IV Lopressor if not taking po Hypertension. BP on the low side. Held spironolactone 25 mg at night due to hypotension and acute kidney injury. Dyslipidemia. Holding Zocor 40 mg by mouth daily for dyslipidemia 2/2 transaminitis due to congestive hepatopathy Lactic acidosis is likely cardiac etiology Status post AICD placement-deactivated 01/21 Elevated troponin H/O DC. Echocardiogram 01/18-ejection fraction 20- 25%. Possible basal posterior and apical kinesis and severe hypokinesis of all other segments. Continue aspirin 81 mg by mouth daily 01/21 episode of V. tach . A. fib RVR amiodarone infusion initiated. 01/24 Started on amiodarone PO dc 2/2 hepatic issues Resp: History COPD Left pleural effusion by cliical exam vs atelectasis Nasal cannula to maintain saturations greater than equal to 92%, Repeat CXR. if goals- if aggressive with get an US guided thoracentesis if + effusion Incentive spirometry while awake Duo nebs every 6 hours and albuterol every 2 hours when necessary dyspnea CT chest 01/08 revealed massive cardiomegaly, small right pleural effusion 01/18 Metabolic acidosis was noted patient was placed on bicarbonate infusion, anion gap improved, discontinued on 01/19, restarted 01/21 01/23 bicarbonate level 34, discontinue sodium bicarbonate infusion GI: Nausea/vomiting-resolved Transaminitis Constipation 1800 ADA diet Protonix for GI prophylaxis PeriColace for bowel regimen. Dulcolax [address] On Megace for anorexia. CT abdomen/pelvis revealed no signs of bowel obstruction. Abdominal x-ray showed moderate stool 01/21 liver enzymes continue to increase, with severe hypoglycemia , shock liver ? GI consulted Consider PEG or TPN calorie count in progress. Discussed with palliative care, family would like to wait 1-2 days before deciding on PEG. Gentle IVF for one liter if family not consenting to TF Dietitian consult : Cavanaugh catheter for accurate I's and O's in a critically ill bedridden patient Endo: Diabetes mellitus. Uncontrolled Hypoglycemia Sliding-scale insulin with Accu-Cheks Holding glipizide 10 mg before meals secondary to poor oral intake TSH and cortisol WNL Renal: Acute kidney injury in the setting of chronic kidney disease stage 3. May have ATN secondary to episode of hypo-tension during A. fib and V. tach. 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 Noted 5 kg wt gain since admission. 01/24: restarted IV bumex per nephrology. Not a candidate for dialysis per renal 01/31/17 switch to by mouth Bumex and monitor Heme: Leukocytosis-resolved Elevated PT/INR and PTT Monitor CBC. Follow trends Holding Eliquis 5 mg BID, INR 1.3 01/17 fibrinogen WNL ID: Severe sepsis source pneumonia aspiration? UTI? Zosyn, vancomycin discontinued 08/26 worsening creatinine 01/21 ID following- Dr. Johnson, all antibiotics discontinued 01/22 per ID Pertinent cultures - Blood cultures 2 01/17 -Bacillus - Urine culture 01/17 -negative - influenza A & B-negative FEN: Hyponatremia Hyperkalemia-resolved Hyper-magnesium Hyperphosphatemia 01/21 IVF D5NS @42cc/hr Received hyperkalemia protocol in ED. 01/23 sodium bicarbonate discontinued MSK: PT evaluate and treat 01/21 Bilateral upper arm edema-ultrasound bilateral lower extremities negative Access - Utilize peripheral IV. Change PIV's 01/21 Central line if indicated Prophylaxis - GI -Protonix - DVT - SCD/holding pharmacological prophylaxis with eliquis is due to acute kidney injury creatinine greater than 1.5 . Also no chemical prophylaxis due to thrombocytopenia Family discussions: 01/22 V. tach episode, family discussion with palliative care medicine. It was decided alternate CODE STATUS be initiated, ACLS drugs only. AICD was interrogated and deactivated. Possible plan for transfer back to hospice, will consult nephrology for any additional recommendations and further discussion with palliative medicine regarding disposition. 01/23: Further interventions planned. Consult with palliative care medicine regarding transition back to hospice care on Tuesday. Patient is not a candidate for dialysis per nephrology, Dr. Cunningham, no further interventions planned. 01/24: palliative met and family continues to want aggressive medical care. January 31: Family wants to wait 1-2 days before deciding on PEG. Sister wants to fly her back to [place]. Family has unrealistic expectations Discharge Planning family has refused hospice. Continues in [facility] for cardiorenal syndrome Problem Qualifiers (1) Sepsis: Qualified Code: A41.9 - Sepsis, due to unspecified organism (2) Renal failure: Qualified Code: N17.9 - Acute renal failure superimposed on stage 3 chronic kidney disease, unspecified acute renal failure type (3) Atrial flutter: Qualified Code: I48.92 - Atrial flutter, unspecified type (4) Congestive heart failure: Qualified Code: I50.23 - Acute on chronic systolic congestive heart failure (5) COPD (chronic obstructive pulmonary disease): Qualified Code: J44.9 - Chronic obstructive pulmonary disease, unspecified COPD type (6) CAD (coronary artery disease): Qualified Code: I25.10 - Coronary artery disease involving [place] coronary artery of [place] heart without angina pectoris (7) HTN (hypertension): Qualified Code: I15.9 - Secondary hypertension (8) DM2 (diabetes mellitus, type 2): Qualified Code: E11.8 - Type 2 diabetes mellitus with complication, without long-term current use of insulin (9) Leukocytosis: Qualified Code: D72.829 - Leukocytosis, unspecified type (10) Insomnia: Qualified Code: G47.00 - Insomnia, unspecified type Hudson Taylor MD Feb 01, 2017 08:53
[2017-02-01] MEDS ORDERED: BISACODYL 10 MG SUPP RECTAL ONE (09:00)
[2017-02-01] MEDS: ARTIFICIAL TEARS OPTH SOLN 15 ML BTL EACH EYE SCH ×2 (09:00→13:00)
[2017-02-01] MEDS: MEGESTROL ACETATE SUSP 400 MG/10 ML CUP PO SCH (09:27)
[2017-02-01] MEDS: ASPIRIN 81 MG CHEW TAB CHEW SCH (09:27)
[2017-02-01] MEDS: SODIUM CHLORIDE 0.9% FLUSH 10 ML FLUSH IV FLUSH SCH (09:28)
[2017-02-01] MEDS: LACTULOSE SYRUP 20 GM/30 ML CUP PO SCH (09:29)
[2017-02-01] MEDS: POLYETHYLENE GLYCOL 17 GM PKG PO SCH (09:29)
[2017-02-01] MEDS: THIAMINE HCL 100 MG TAB PO SCH (09:29)
[2017-02-01] MEDS: DOCUSATE SODIUM 50 MG/SENNA 8.6 MG TAB PO SCH (09:29)
[2017-02-01] MEDS: BUMETANIDE 1 MG TAB PO SCH (09:29)
[2017-02-01] MEDS: MULTIVITAMIN TAB PO SCH (09:29)
--- NOTE | 2017-02-01 11:23 | HHI.NPPN ---
Subjective General Problems: Hypertension Renal Failure: Acute Interval History Creatinine is stable, however BUN is elevated. She has very poor oral intake and not participating in therapy. Additional Remarks (Dalia Almaguer) Review of Systems General Constitutional: Fatigue (Dalia Almaguer) Skin Skin: Ulcers (Dalia Almaguer) Objective Data Data 01/31/17 02/01/17 19:00 07:00 Intake Total 500 ml 120 ml Output Total 600 ml 350 ml Balance -100 ml -230 ml Intake Oral 500 ml 120 ml Output Urine Total 600 ml 350 ml Vital Signs Date Time Temp Pulse Resp B/P Pulse Ox O2 Delivery O2 Flow Rate FiO2 02/01/17 10:20 97 Nasal Cannula 3.00 02/01/17 08:00 97.9 110 18 109/57 100 02/01/17 08:00 100 Nasal Cannula 3.00 02/01/17 07:00 137 02/01/17 06:00 144 02/01/17 05:00 142 02/01/17 04:00 124 02/01/17 03:00 143 02/01/17 03:00 97.2 143 30 83/53 97 02/01/17 02:30 89/55 02/01/17 02:00 142 02/01/17 02:00 88/54 02/01/17 01:00 142 02/01/17 00:30 98.9 144 26 106/57 98 02/01/17 00:00 144 01/31/17 23:00 143 01/31/17 22:00 128 01/31/17 21:00 140 01/31/17 19:00 98 Nasal Cannula 3.00 01/31/17 19:00 97.4 142 24 105/54 98 01/31/17 19:00 90 01/31/17 18:00 90 01/31/17 17:00 90 01/31/17 16:00 97.8 90 22 104/66 100 01/31/17 16:00 92 01/31/17 15:00 92 01/31/17 14:00 90 01/31/17 13:00 90 01/31/17 12:21 Nasal Cannula 3.00 01/31/17 12:00 89 01/31/17 12:00 98.7 91 22 106/52 98 (Dalia Almaguer) -: 02/01/17 0208 02/01/17 0448 Imaging Last 72 hours Impressions Abdomen X-Ray 01/31/17 0000 Signed Impressions: Service Date/Time: Tuesday, January 31, 2017 13:08 - CONCLUSION: Unremarkable study except for stool. Cade Hernandes MD Tubes & Lines: Cavanaugh (Dalia Almaguer) Physical Exam General Appearance: No Acute Distress, Comfortable, Sleeping Appearance Remarks frail appearing , lethargic, opens eyes briefly (Dalia Almaguer) Throat Throat Exam: Oral Mucosa [place] & Moist (Dalia Almaguer) Neck Neck Exam: Neck Supple, Jugular Vein Distension (Dalia Almaguer) Pulmonary Resp Exam: Breath Sounds Equal, Decreased Bases, Diminished Breath Sounds, Poor Inspiratory Effort Resp Remarks scattered wheezing (Dalia Almaguer) Cardiology CV Exam: Irregular, Arrhythmia, Tachycardia, Pacemaker CV Remarks intermittent tachycardia, has A fib (Dalia Almaguer) Gastrointestinal/Abdomen GI Exam: Soft, Non-Tender, Positive Bowel Movement (Dalia Almaguer) Musculoskeletal MS Exam: Joints Intact, Normal Tone (Dalia Almaguer) Integumentary Skin Exam: Warm, Dry Skin Remarks bulla on bilateral upper extremities have opened, no drainage (Dalia Almaguer) Extremeties Extremities Exam: Moderate Edema, Dependent Edema (Dalia Almaguer) Neurologic Neuro Exam: Stuporous, Obtunded Neuro Remarks profound generalized weakness (Dalia Almaguer) Psychiatric Psych Exam: Appropriate Responses (Dalia Almaguer) VTE Prophylaxis Device: SCDs (Dalia Almaguer) Assessment/Plan Discussed Condition With: Relative Assessment Summary: PREMA/Acute Renal Failure, Fluid/Volume Overload, Proteinuria , Malnutrition, CHF, Hypotension, Diabetes Mellitus Electrolyte Assessment: Hypokalemia Problem List: (1) Acute kidney injury Plan: PREMA on CKD 3: Her baseline creatinine has been near 1.6-1.8. Suspected underlying cardiorenal syndrome; PREMA may be due to ATN secondary to hypoperfusion during episodes of V-tach and hypotension Renal function overall stable elevated BUN, may be due to agressive diuresis, change Bumex to once daily Non oliguric, avoid IVF, nephrotoxic medications (2) CHF (congestive heart failure) Plan: EF 20-25%, diuresed over the weekend continue Bumex, she has had good response to diuretics weight improved monitor fluid status (3) Failure to thrive in adult Plan: Continue to follow goals of care with family recommend hospice, they have decided to continue aggressive measures she was started on appetite stimulant she may need PEG tube soon (4) Afib Plan: rate mostly controlled continue metoprolol, received cardizem overnight for RVR cardiology following she has AICD in place (5) Metabolic acidosis Plan: improved, monitor (6) V-tach Plan: Resolved, continue to monitor cardiology has been consulted (7) Hyponatremia Plan: hypervolemic, has improved continue Loop diuretics (Dalia Almaguer) Plan patient was seen and examined in the morning. Poor prognosis continues. Discussed with patient's daughter over the phone. We reduced the diuretic. ( Ashvin England MD) Dalia Almaguer Feb 01, 2017 11:22 Ashvin England MD Feb 02, 2017 09:44
[2017-02-01] MEDS ORDERED: SODIUM CHLOR 0.9% 1000 ML INJ 1,000 ML IV PRN (11:30)
[2017-02-01] MEDS ORDERED: BUMETANIDE INJ 1 MG/4 ML VIAL IV PUSH PRN (11:30)
[2017-02-01] MEDS ORDERED: METOPROLOL TARTRATE 5 MG/5 ML VIAL IV PUSH PRN (11:30)
[2017-02-01] MEDS ORDERED: METOPROLOL TARTRATE 25 MG TAB PO SCH (14:00)
[2017-02-01] MEDS ORDERED: SODIUM CHLOR 0.9% 250 ML INJ 250 ML IV PRN (14:15)
--- NOTE | 2017-02-01 14:47 | HHI.GIFU ---
Subjective Remarks Resting in bed. Very lethargic. Calorie count in progress. Not taking much po. Daughter on phone states her mom is not eating because she does not like the puree diet. They have not made a decision re: feeding tube as of yet. Daughter would like to try full liquid diet because she feels her mom likes those foods better. Objective Vitals I&O Vital Signs Date Time Temp Pulse Resp B/P Pulse Ox O2 Delivery O2 Flow Rate FiO2 02/01/17 10:20 97 Nasal Cannula 3.00 02/01/17 08:00 97.9 110 18 109/57 100 02/01/17 08:00 100 Nasal Cannula 3.00 02/01/17 07:00 137 02/01/17 06:00 144 02/01/17 05:00 142 02/01/17 04:00 124 02/01/17 03:00 143 02/01/17 03:00 97.2 143 30 83/53 97 02/01/17 02:30 89/55 02/01/17 02:00 142 02/01/17 02:00 88/54 02/01/17 01:00 142 02/01/17 00:30 98.9 144 26 106/57 98 02/01/17 00:00 144 01/31/17 23:00 143 01/31/17 22:00 128 01/31/17 21:00 140 01/31/17 19:00 98 Nasal Cannula 3.00 01/31/17 19:00 97.4 142 24 105/54 98 01/31/17 19:00 90 01/31/17 18:00 90 01/31/17 17:00 90 01/31/17 16:00 97.8 90 22 104/66 100 01/31/17 16:00 92 01/31/17 15:00 92 I/O 01/31/17 01/31/17 01/31/17 02/01/17 02/01/17 02/01/17 07:00 15:00 23:00 07:00 15:00 23:00 Intake Total 240 ml 500 ml 120 ml Output Total 675 ml 600 ml 350 ml Balance -435 ml -100 ml -230 ml Intake Oral 240 ml 500 ml 120 ml Output Urine Total 675 ml 600 ml 350 ml Laboratory Laboratory Tests Test 02/01/17 02/01/17 02:08 04:48 White Blood Count 6.6 Red Blood Count 4.73 Hemoglobin 14.8 Hematocrit 45.6 Mean Corpuscular Volume 96.4 Mean Corpuscular Hemoglobin 31.2 Mean Corpuscular Hemoglobin 32.4 Concent Red Cell Distribution Width 25.6 Platelet Count 58 Mean Platelet Volume 10.9 Neutrophils (%) (Auto) 84.2 Lymphocytes (%) (Auto) 4.8 Monocytes (%) (Auto) 10.0 Eosinophils (%) (Auto) 0.9 Basophils (%) (Auto) 0.1 Neutrophils # (Auto) 5.6 Lymphocytes # (Auto) 0.3 Monocytes # (Auto) 0.7 Eosinophils # (Auto) 0.1 Basophils # (Auto) 0.0 CBC Comment AUTO DIFF Differential Total Cells 100 Counted Neutrophils % (Manual) 31 Band Neutrophils % 44 Lymphocytes % 3 Monocytes % 5 Neutrophils # (Manual) 6.1 Metamyelocytes 13 Myelocytes 4 Differential Comment FINAL DIFF MANUAL Toxic Vacuolation PRESENT Dohle Bodies PRESENT Platelet Estimate LOW Platelet Morphology Comment NORMAL Basophilic Stippling FAINT Ovalocytes 1+ Sodium Level 137 138 Potassium Level 4.1 4.0 Chloride Level 94 93 Carbon Dioxide Level 28.0 28.9 Anion Gap 15 16 Blood Urea Nitrogen 109 111 Creatinine 2.23 2.38 Estimat Glomerular Filtration 26 24 Rate Random Glucose 180 179 Calcium Level 9.2 9.2 Phosphorus Level 4.9 Magnesium Level 2.2 2.3 Imaging Last Impressions Abdomen X-Ray 01/31/17 0000 Signed Impressions: Service Date/Time: Tuesday, January 31, 2017 13:08 - CONCLUSION: Unremarkable study except for stool. K. Viet Hernandes MD Chest X-Ray 01/26/17 0000 Signed Impressions: Service Date/Time: Thursday, January 26, 2017 12:34 - CONCLUSION: 1. Moderate bilateral pleural effusions with associated lower lobe airspace disease. 2. Stable enlargement of the cardiac silhouette. Alon Montenegro MD Upper Extremity Ultrasound 01/24/17 0000 Signed Impressions: Service Date/Time: Tuesday, January 24, 2017 08:53 - CONCLUSION: Normal examination for a patient of this age. Kip Arriaga MD Liver Ultrasound 01/22/17 0000 Signed Impressions: Service Date/Time: Sunday, January 22, 2017 14:51 - CONCLUSION: 1. Dilatation the common bile duct likely reflecting a reservoir following cholecystectomy. This could be correlated clinically and with the patient's laboratory biliary status. 2. Bilateral pleural effusions. Mello Oglesby MD Head CT 01/17/17 0000 Signed Impressions: Service Date/Time: Tuesday, January 17, 2017 17:13 - CONCLUSION: Negative for an acute process. Herve Fam MD FACR Chest CT 01/17/17 0000 Signed Impressions: Service Date/Time: Tuesday, January 17, 2017 17:18 - CONCLUSION: Cardiomegaly. Small right effusion. Mild basilar atelectasis. Mello Cameron MD Abdomen/Pelvis CT 01/17/17 0000 Signed Impressions: Service Date/Time: Tuesday, January 17, 2017 17:18 - CONCLUSION: Massive cardiomegaly without pericardial effusion. Minimal failure with small right pleural effusion and trace ascites. There is no gastric distention. Herve Fam MD FACR Physical Exam HEENT: Normocephalic, normocephalic CHEST: CTA, diminished CARDIAC: Irregular ABDOMEN: +BS, soft, mildly distended, nontender; no hepatosplenomegaly EXTREMITIES: No clubbing, cyanosis, or edema. 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 Per daughter, no prior history of liver disease in patient or other family members and denies any history of hepatitis, cirrhosis, or alcohol use. S/P cholecystectomy. Her daughter reports that she did have a bout of nausea and vomiting the night before this hospitalization, but has not had any further episodes. The patient denies any abdominal pain. Abdomen/Pelvis CT (01/17/17)----> Massive cardiomegaly without pericardial effusion. Minimal failure with small right pleural effusion and trace ascites. There is no gastric distention. Liver Ultrasound (01/22/17)----> 1. Dilatation the common bile duct likely reflecting a reservoir following cholecystectomy. This could be correlated clinically and with the patient's laboratory biliary status. 2. Bilateral pleural effusions. Hepatitis profile negative. KERI negative. ASMA negative, AMA < 20.0. This is most likely multifactorial, secondary to hepatic congestion, sepsis. - Poor nutrition. S/P Calorie count (01/24)-----> Inadequate po intake to meet nutritional needs. Glucerna TID and if no improvement, then consider TF. Rpt. Calorie count in progress from 01/31-02/02, with results on 02/03. Pt not taking much po. Spoke to daughter on phone. She has not decided about feeding tube yet. She feels that her mother is not eating because she does not care for the pureed diet and is requesting a trial of full liquids before making decision re: feeding tube or tpn. - Abdominal distention. Resolved. CT as above. + BM's. - Sepsis/Bacteremia. Cx with bacillus species, not anthracis. WBC 6.6. Off abx. ID following. - CAD, Chronic systolic heart failure with EF, Hx aflutter (S/P ablation), elevated troponin. Pt had run of Vtach on 01/21. CCM/Cardiology following. A sodium bicarbonate infusion was given. No defibrillation required. The patient then converted into atrial fibrillation with RVR. She was started on Amiodarone. HR stable. AICD was interrogated and turned off. - PREMA. Creat 2.38 - HTN, Hyperlipidemia, COPD, Small right pleural effusion, DM per primary - Hx embolic CVA/left basal ganglia. s/p angiogram and was found to have a large clot at the ICA, M1 segment, s/p embolectomy with rastafari of antegrade flow on 10/25/16 PLAN: - Full liquids per family request - Ensure - Calorie count in progress - Megace - Miralax - Monitor LFTs - Avoid hepatotoxic meds - Spoke to daughter, feels her mom is not eating because she does not care for puree diet and would like to try full liquids with ensure before making any decisions re: feeding tube or TPN. - Further recommendations to follow based on results of above - Pt was seen and examined by myself and Dr. José and this note was written on his behalf Hannah Duque Feb 01, 2017 14:46
[2017-02-01] MEDS ORDERED: METOPROLOL TARTRATE 5 MG/5 ML VIAL IV PUSH SCH (15:00)
[2017-02-01] MEDS ORDERED: TERBUTALINE INJ 1 MG/ML AMP SQ PRN (15:30)
--- NOTE | 2017-02-01 15:57 | HHI.CCPN ---
Subjective Remarks/Hospital Course 71-year-old female. Date of admission 01/17/2017. Past medical history includes prior CVA with right-sided weakness, a flutter status ablation 2069, chronic kidney disease stage III sees Dr. Cunningham, coronary artery disease sees [facility] cardiology, hypertension, chronic systolic heart failure ejection fraction 20%, COPD, dyslipidemia and diabetes. In September, patient had prolonged hospitalization for CVA with right-sided hemiparesis and aphasia. She was seen in rehabilitation. And eventually discharged to snf. One week ago, patient was made hospice per physician. Daughter Triny Amor rescinded and patient was brought to [facility] for further evaluatio CT head negative. CT chest with cardiac megaly, small pleural effusion. No definite elevated troponin, acute kidney injury creatinine 2.7, leukocytosis, lactic acidosis and 9.3. Patient is currently complaining of nausea and vomiting in his throat twice daily. No abdominal pain however. CT abdomen/ pelvis revealed no acute findings. Received 1 L normal saline ED due to hypotension is currently hemodynamically stable. Subjective: 01/18: Patient complains of being hungry this a.m., nausea and vomiting resolved. Ice chips tolerated well. Plan to advance to clear liquid diet. Patient this afternoon slightly lethargic, but easily arousable. ABG obtained rule out CO2 narcosis, Zoloft placed on hold. 01/19: Patient tolerating clear liquid diet with Ensure supplementation. Patient was noted to be tachycardic heart rate in the 120s, metoprolol when necessary being administered. Plan to resume metoprolol at lower dose 12.5 mg, if hemodynamically tolerated. Bacteremia noted gram-negative rods, patient's on Zosyn, leukocytosis resolved. 01/20: Afebrile .The patient is now tolerating a renal diet. Metoprolol PO instituted, the patient continues to be tachycardic. Lactate level slightly elevated 2.3, slightly secondary to underlying cardiac etiology with noted BNP greater than 5000. Patient remains lethargic, noted ammonia level, lactulose instituted. 01/21: Patient with poor PO intake, retaining food in mouth. Formal swallow study this a.m., diet changed to pured. Patient was noted to be more lethargic , ammonia level increasing 58, and patient was noted to be hypoglycemic glucose 38, with transaminitis, GI consulted. Creatinine was noted to be worsening with elevation of potassium. Bacteremia noted to be bacillus, but Vancomycin was discontinued, consideration of carbapenem. Consulted ID for recommendations. 01/22: Yesterday the patient had an episode of ventricular tachycardia with a rate of 160, potassium level was noted to be 5.3. Emergently received sodium bicarbonate, D50 and insulin, Kayexalate, the patient has an indwelling AICD set to defibrillate at rate 171. A sodium bicarbonate infusion was instituted. No defibrillation was required. The patient then converted into atrial fibrillation with RVR, low 100s. Amiodarone was bolused and amiodarone continues to infuse. Heart rate during the night range from 90s to 110. The patient previously had been in hospice care with a DNR, which have been rescinded for this hospitalization. Palliative care was consulted yesterday and extensive discussion with the family resulted in decision of an alternate CODE STATUS with ACLS medications only. AICD was interrogated and turned off. GI was consulted regarding patient's transaminitis,liver US and labs are pending. The patient continues to be oliguric with 650 cc urine output in 24 hours. Nephrology has been consulted for recommendations. 01/23: Per nephrology the patient is not a candidate for dialysis, discussed with Dr. Cunningham. Creatinine improved today, will discontinue sodium bicarbonate infusion, calcium level now within normal limits. ID is following, antibiotics have been discontinued. Cardiology no interventions plan, they have signed off. Extensive of discussion with the family. Palliative is following should plan for transfer to hospice possibly on Tuesday as no further interventions are planned. 01/24: palliative saw patient again. patient's family continues to want aggressive care. Cr only slightly improved, and patient persists in gross volume overload. bumex still on hold per nephrology. patient denies complaints. family asking if we can apply any dressings to bullae. 01/25: remains stable. Cr worse today. bumex restarted per nephrology and mivf stopped. nephrology guiding volume management given worsening PREMA. palliative talking with family again today. 02/01: reconsulted for Halicat for hypotension. 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 She has had a declining course. Multiple consultants have recommended hospice. She rapid responses for hypotension and obtundation. She is a DNI with no chest compressions, only ACLS drugs. I evaluated the patient, she is unresponsive, and hypotensive with sbp 68 and a map 40 mmHg. she has very obvious JVD above the level of the mandible. she has peripheral edema. Family continues to want aggressive measures including vasopressors if indicated. She needs to be in an ICU setting. Objective Vital Signs Date Time Temp Pulse Resp B/P Pulse Ox O2 Delivery O2 Flow Rate FiO2 02/01/17 11:00 114 02/01/17 10:20 97 Nasal Cannula 3.00 02/01/17 08:00 97.9 18 109/57 Intake and Output 01/31/17 01/31/17 02/01/17 08:00 16:00 00:00 Intake Total 240 ml 500 ml Output Total 675 ml 600 ml Balance -435 ml -100 ml Result Diagram: 02/01/17 0208 02/01/17 0448 Imaging Last Impressions Chest X-Ray 01/17/17 1556 Signed Impressions: Service Date/Time: Tuesday, January 17, 2017 16:07 - CONCLUSION: 1. Left basilar opacity may represent atelectasis, consolidation, and/or pleural effusion. 2. Stable enlargement of the cardiac silhouette within abnormal cardiac shape. Mello Dorman MD Head CT 01/17/17 0000 Signed Impressions: Service Date/Time: Tuesday, January 17, 2017 17:13 - CONCLUSION: Negative for an acute process. Herve Fam MD FACR Chest CT 01/17/17 0000 Signed Impressions: Service Date/Time: Tuesday, January 17, 2017 17:18 - CONCLUSION: Cardiomegaly. Small right effusion. Mild basilar atelectasis. Mello Cameron MD Abdomen/Pelvis CT 01/17/17 0000 Signed Impressions: Service Date/Time: Tuesday, January 17, 2017 17:18 - CONCLUSION: Massive cardiomegaly without pericardial effusion. Minimal failure with small right pleural effusion and trace ascites. There is no gastric distention. Herve Fam MD FACR Objective Remarks gen: female, in severe distress, obtunded heent: pupils 2mm, equal, reactive. mucous membranes dry. neck: distended neck veins above the clavicle. evidence of venous distension even in the facial veins. trachea midline. chest: labored. tachypneic. spo2 97% on NC o2. cv: tachycardic rate, irregularly irregular rhythm. afib by tele. intermittently paced beats. hypotensive with sbp 60s. abd: soft, nontender, nondistended. no guarding. extr: +edema. poorly perfused. cool extremities. neuro: RASS -4. obtunded. does not follow commands. Procedures AICD placement-deactivated 01/21 A/P Assessment and Plan Assessment: 71yF with multiple acute on chronic medical problems, including oligoaneuric PREMA, cardiogenic shock, metabolic encephalopathy. She is actively dying. We cannot add volume as she is volume overloaded. she is also in afib RVR , so beta agonist vasopressors may worsen that and ultimately worsen her cardiac function. will start phenylephrine peripherally to help increase end- organ perfusion pressure. very critically ill, and despite our urging, family continues to want aggressive care. Active Problems: Oligoanuric renal failure, acute and severe Cardiogenic Shock Cor Pulmonale Metabolic encephalopathy Acute intravascular volume overload Plan: -- continue iv bumex as ordered -- phenylephrine for map goal > 65 mmHg. -- mental status is significantly worse, will obtain noncontrasted head CT. -- continue DNR status with exception of ACLS drugs. -- frequent neuro checks -- transfer to ICU Critical care time: 47 minutes, exclusive of separately billable procedures. Dale Lea MD Feb 01, 2017 15:57 Severe sepsis with multisystem organ failure Chronic systolic heart failure ejection fraction 20% History of atrial flutter status post ablation 10/[address] Velazquez Hypertension Dyslipidemia Lactic acidosis is likely cardiac etiology Status post AICD placement-deactivated 01/21 Elevated troponin H/O IL 2-D echo 11/08 revealed EF 20-25%. Global hypokinesis. Akinesis and scarring of the inferior posterior margin. Moderate MR/TR. Mild left atrial dilation. DARLIN 55 mmHg Status post 1 L normal saline in ED. Holding Zocor 40 mg by mouth daily for dyslipidemia. Resume when clinically indicated Holding Bumex 2 mg by mouth twice a day and spironolactone 25 mg at night due to hypotension and acute kidney injury.. 01/20 Lactate 2.3 Echocardiogram 01/18-ejection fraction 2024%. Possible basal posterior and apical kinesis and severe hypokinesis of all other segments Dr. Olson, alterations supervisor- signed off 01/21 Continue aspirin 81 mg by mouth daily 01/20 BNP > 5000 01/21 episode of V. tach was self resolution. A. fib RVR amiodarone infusion initiated, will restart Metoprolol when clinically improvement in BP. 01/24 Start amiodarone PO in anticipation of transfer Resp: History COPD Small right pleural effusion Nasal cannula to maintain saturations greater than equal to 92%, Incentive spirometry while awake Duo nebs every 6 hours and albuterol every 2 hours when necessary dyspnea CT chest 01/08 revealed massive cardiomegaly, small right pleural effusion 01/18 Metabolic acidosis was noted patient was placed on bicarbonate infusion, anion gap improved, discontinued on 01/19, restarted 01/21 01/23 bicarbonate level 34, discontinue sodium bicarbonate infusion GI: Nausea/vomiting-resolved Transaminitis 1800 ADA diet Protonix for GI prophylaxis PeriColace for bowel regimen On Megace for anorexia. CT abdomen/pelvis revealed no signs of bowel obstruction. 01/21 liver enzymes continue to increase, with severe hypoglycemia , shock liver ? 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 Noted 5 kg wt gain since admission. 01/24: restarted bumex per nephrology. Heme: Leukocytosis-resolved Elevated PT/INR and PTT Monitor CBC daily. Follow trends Holding Eliquis 5 mg BID, INR 1.3 01/17 fibrinogen WNL ID: Severe sepsis source pneumonia aspiration? UTI? Day 6 Zosyn, vancomycin discontinued 08/26 worsening creatinine 01/21 ID following- Dr. Johnson, all antibiotics discontinued 01/22 per ID Pertinent cultures - Blood cultures 2 01/17 -Bacillus - Urine culture 01/17 - pending Sputum culture-pending influenza A & B-negative FEN: Hyponatremia Hyperkalemia-resolved Hyper-magnesium Hyperphosphatemia 01/21 IVF D5NS @42cc/hr Received hyperkalemia protocol in ED. 01/23 sodium bicarbonate discontinued MSK: PT evaluate and treat 01/21 Bilateral upper arm edema-ultrasound bilateral lower extremities negative Access - Utilize peripheral IV. Change PIV's 01/21 Central line if indicated Prophylaxis - GI -Protonix - DVT - SCD/holding pharmacological prophylaxis with eliquis is due to acute kidney injury creatinine greater than 1.5 Family discussions: 01/22 Yesterday after V. tach episode, family discussion with palliative care medicine. It was decided alternate CODE STATUS be initiated, ACLS drugs only. AICD was interrogated and deactivated. Possible plan for transfer back to hospice, will consult nephrology for any additional recommendations and further discussion with palliative medicine regarding disposition. 01/23: Further interventions planned. Consult with palliative care medicine regarding transition back to hospice care on Tuesday. Patient is not a candidate for dialysis per nephrology, Dr. Cunningham, no further interventions planned. 01/24: palliative met and family continues to want aggressive medical care. Dale Lea MD Feb 01, 2017 15:57
[2017-02-01] MEDS ORDERED: PHENYLEPHRINE INJ 40 MG in DEXTROSE 5% IN WATE 500 ML INJ 496 ML IV SCH ×2 (16:30)
--- NOTE | 2017-02-01 17:07 | DEATH SUM ---
Pronouncement Date Pronounced : Feb 01, 2017 Time Of : 16:55 Pronouncement Called to pronounce of patient. Identified patient as Yamel Salinas with wrist band MR# [id number]. Patient with no cardiac activity in 2 separate leads and no palpable/auscible cardiac activity. Patient with no spontaneous respirations, no corneal reflex or response to painful stimuli. Pupils fixed and dilated. Preliminary Cause of : Cardiac arrest Dale Lea MD Feb 01, 2017 17:07
--- NOTE | 2017-02-01 17:07 | PD.PROCEDR ---
Procedure Note Procedure ACLS procedure note Presenting rhythm: PEA arrest Event Details: The patient had documented goals of care which were aggressive and a documented CODE STATUS of ACLS drugs only, but not chest compressions or intubation. Congruent with the patient's wishes, when she lost a pulse, a code was called. I was present at the code. The present rhythm was PEA arrest. Congruent with the patient's wishes, 1 mg of epinephrine was given IV 1. CPR was not instituted per her wishes, but she did wish for aggressive measures with ACLS drugs. These drugs were unsuccessful at returning spontaneous circulation. The patient at 16:55 I was personally present for the entire ACLS event. Dale Lea MD Feb 01, 2017 17:07
--- NOTE | 2017-02-01 17:11 | HHI.DS ---
Summary Note Date of : Feb 01, 2017 Time Of : 16:55 Admission Date Jan 17, 2017 at 18:16 Admitting Diagnosis Sepsis Diagnosis at Time of : (1) Metabolic acidosis ICD Code: E87.2 Diagnosis: Principal (2) NSTEMI (non-ST elevated myocardial infarction) ICD Code: I21.4 Diagnosis: Principal (3) Sepsis ICD Code: A41.9 Diagnosis: Principal (4) Renal failure ICD Code: N19 Diagnosis: Principal (5) Implantable cardioverter-defibrillator generator end of life ICD Code: Z45.02 Diagnosis: Principal (6) Hyperkalemia ICD Code: E87.5 Diagnosis: Principal (7) Atrial flutter ICD Code: I48.92 Diagnosis: Principal (8) Congestive heart failure ICD Code: I50.9 Diagnosis: Principal (9) COPD (chronic obstructive pulmonary disease) ICD Code: J44.9 Diagnosis: Principal (10) Elevated troponin level ICD Code: R79.89 Diagnosis: Principal (11) CAD (coronary artery disease) ICD Code: I25.10 Diagnosis: Principal (12) Impaired mobility and activities of daily living ICD Code: Z74.09 Diagnosis: Principal (13) Hemiparesis affecting dominant side as late effect of cerebrovascular accident (CVA) ICD Code: I69.359 Diagnosis: Principal (14) HTN (hypertension) ICD Code: I10 Diagnosis: Principal (15) CKD (chronic kidney disease) stage 3, GFR 30-59 ml/min ICD Code: N18.3 Diagnosis: Principal (16) DM2 (diabetes mellitus, type 2) ICD Code: E11.9 Diagnosis: Principal (17) Leukocytosis ICD Code: D72.829 Diagnosis: Principal (18) Lactic acidosis ICD Code: E87.2 Diagnosis: Principal (19) Hyperphosphatemia ICD Code: E83.39 Diagnosis: Principal (20) Hypermagnesemia ICD Code: E83.41 Diagnosis: Principal (21) Insomnia ICD Code: G47.00 Diagnosis: Principal (22) Failure to thrive in adult ICD Code: R62.7 Diagnosis: Principal (23) Severe sepsis with acute organ dysfunction ICD Code: A41.9 Diagnosis: Principal Procedures AICD placement-deactivated 01/21 Brief History 71-year-old female. Date of admission 01/17/2017. Past medical history includes prior CVA with right-sided weakness, a flutter status ablation 2069, chronic kidney disease stage III sees Dr. Cunningham, coronary artery disease sees [facility] cardiology, hypertension, chronic systolic heart failure ejection fraction 20%, COPD, dyslipidemia and diabetes. In September, patient had prolonged hospitalization for CVA with right-sided hemiparesis and aphasia. She was seen in rehabilitation. And eventually discharged to custodial. One week ago, patient was made hospice per physician. Daughter Triny Amor rescinded and patient was brought to [facility] for further evaluatio CT head negative. CT chest with cardiac megaly, small pleural effusion. No definite elevated troponin, acute kidney injury creatinine 2.7, leukocytosis, lactic acidosis and 9.3. Patient is currently complaining of nausea and vomiting in his throat twice daily. No abdominal pain however. CT abdomen/ pelvis revealed no acute findings. Received 1 L normal saline ED due to hypotension is currently hemodynamically stable. CBC/BMP: 02/01/17 0208 02/01/17 0448 Significant Findings Laboratory Tests Test 01/30/17 01/30/17 01/31/17 02/01/17 04:27 04:42 05:00 02:08 Sodium Level 133 MEQ/L (136-145) Chloride Level 90 MEQ/L 92 MEQ/L 94 MEQ/L (98-107) (98-107) (98-107) Blood Urea Nitrogen 92 MG/DL (7-18) 106 MG/DL 109 MG/DL (7-18) (7-18) Creatinine 2.25 MG/DL 2.37 MG/DL 2.23 MG/DL (0.50-1.00) (0.50-1.00) (0.50-1.00) Estimat Glomerular Filtration 26 ML/MIN (>89) 25 ML/MIN (>89) 26 ML/MIN (>89) Rate Random Glucose 167 MG/DL 172 MG/DL 180 MG/DL (74-106) (74-106) (74-106) Total Bilirubin 2.7 MG/DL (0.2-1.0) Direct Bilirubin 1.3 MG/DL (0.0-0.2) Indirect Bilirubin 1.4 MG/DL (0.0-0.8) Aspartate Amino Transf 78 U/L (15-37) (AST/SGOT) Alanine Aminotransferase 188 U/L (10-53) (ALT/SGPT) Alkaline Phosphatase 219 U/L (45-117) Albumin 2.8 GM/DL (3.4-5.0) White Blood Count 11.4 TH/MM3 (4.0-11.0) Hematocrit 46.6 % (35.0-46.0) Red Cell Distribution Width 25.6 % 26.4 % 25.6 % (11.6-17.2) (11.6-17.2) (11.6-17.2) Platelet Count 50 TH/MM3 66 TH/MM3 58 TH/MM3 (150-450) (150-450) (150-450) Potassium Level 3.1 MEQ/L (3.5-5.1) Anion Gap 16 MEQ/L (5-15) Neutrophils (%) (Auto) 84.2 % (16.0-70.0) Lymphocytes (%) (Auto) 4.8 % (9.0-44.0) Monocytes (%) (Auto) 10.0 % (0.0-8.0) Lymphocytes # (Auto) 0.3 TH/MM3 (1.0-4.8) Band Neutrophils % 44 % (0-6) Lymphocytes % 3 % (9-44) Metamyelocytes 13 % (0-1) Myelocytes 4 % (0-0) Toxic Vacuolation PRESENT (NONE SEEN) Dohle Bodies PRESENT (NONE SEEN) Platelet Estimate LOW (NORMAL) Basophilic Stippling FAINT (NORMAL) Ovalocytes 1+ (NORMAL) Test 02/01/17 04:48 Chloride Level 93 MEQ/L (98-107) Anion Gap 16 MEQ/L (5-15) Blood Urea Nitrogen 111 MG/DL (7-18) Creatinine 2.38 MG/DL (0.50-1.00) Estimat Glomerular Filtration 24 ML/MIN (>89) Rate Random Glucose 179 MG/DL (74-106) Imaging Last Impressions Chest X-Ray 01/17/17 1556 Signed Impressions: Service Date/Time: Tuesday, January 17, 2017 16:07 - CONCLUSION: 1. Left basilar opacity may represent atelectasis, consolidation, and/or pleural effusion. 2. Stable enlargement of the cardiac silhouette within abnormal cardiac shape. Mello Dorman MD Head CT 01/17/17 0000 Signed Impressions: Service Date/Time: Tuesday, January 17, 2017 17:13 - CONCLUSION: Negative for an acute process. Herve Fam MD FACR Chest CT 01/17/17 0000 Signed Impressions: Service Date/Time: Tuesday, January 17, 2017 17:18 - CONCLUSION: Cardiomegaly. Small right effusion. Mild basilar atelectasis. Mello Cameron MD Abdomen/Pelvis CT 01/17/17 0000 Signed Impressions: Service Date/Time: Tuesday, January 17, 2017 17:18 - CONCLUSION: Massive cardiomegaly without pericardial effusion. Minimal failure with small right pleural effusion and trace ascites. There is no gastric distention. Herve Fam MD FACR Hospital Course 71yF with multiple acute on chronic medical problems, now with worsening oliguric PREMA. Cr worsening with restarting bumex and d/c fluids, but clinically appears volume overloaded, she continues with her medical problems, volume overload, pneumonia, heart failure. Still unlikely to recover. At family's request, continuing aggressive care. Poor prognosis. Family discussions: 01/22 V. tach episode, family discussion with palliative care medicine. It was decided alternate CODE STATUS be initiated, ACLS drugs only. AICD was interrogated and deactivated. Possible plan for transfer back to hospice, will consult nephrology for any additional recommendations and further discussion with palliative medicine regarding disposition. 01/23: Further interventions planned. Consult with palliative care medicine regarding transition back to hospice care on Tuesday. Patient is not a candidate for dialysis per nephrology, Dr. Cunningham, no further interventions planned. 01/24: palliative met and family continues to want aggressive medical care. January 31: Family wants to wait 1-2 days before deciding on PEG. Sister wants to fly her back to [place]. Family has unrealistic expectations 71-year-old female. Date of admission 01/17/2017. Past medical history includes prior CVA with right-sided weakness, a flutter status ablation 2069, chronic kidney disease stage III sees Dr. Cunningham, coronary artery disease sees [facility] cardiology, hypertension, chronic systolic heart failure ejection fraction 20%, COPD, dyslipidemia and diabetes. In September, patient had prolonged hospitalization for CVA with right-sided hemiparesis and aphasia. She was seen in rehabilitation. And eventually discharged to custodial. One week ago, patient was made hospice per physician. Daughter Triny Amor rescinded and patient was brought to [facility] for further evaluatio CT head negative. CT chest with cardiac megaly, small pleural effusion. No definite elevated troponin, acute kidney injury creatinine 2.7, leukocytosis, lactic acidosis and 9.3. Patient is currently complaining of nausea and vomiting in his throat twice daily. No abdominal pain however. CT abdomen/ pelvis revealed no acute findings. Received 1 L normal saline ED due to hypotension is currently hemodynamically stable. Subjective: 01/18: Patient complains of being hungry this a.m., nausea and vomiting resolved. Ice chips tolerated well. Plan to advance to clear liquid diet. Patient this afternoon slightly lethargic, but easily arousable. ABG obtained rule out CO2 narcosis, Zoloft placed on hold. 01/19: Patient tolerating clear liquid diet with Ensure supplementation. Patient was noted to be tachycardic heart rate in the 120s, metoprolol when necessary being administered. Plan to resume metoprolol at lower dose 12.5 mg, if hemodynamically tolerated. Bacteremia noted gram-negative rods, patient's on Zosyn, leukocytosis resolved. 01/20: Afebrile .The patient is now tolerating a renal diet. Metoprolol PO instituted, the patient continues to be tachycardic. Lactate level slightly elevated 2.3, slightly secondary to underlying cardiac etiology with noted BNP greater than 5000. Patient remains lethargic, noted ammonia level, lactulose instituted. 01/21: Patient with poor PO intake, retaining food in mouth. Formal swallow study this a.m., diet changed to pured. Patient was noted to be more lethargic , ammonia level increasing 58, and patient was noted to be hypoglycemic glucose 38, with transaminitis, GI consulted. Creatinine was noted to be worsening with elevation of potassium. Bacteremia noted to be bacillus, but Vancomycin was discontinued, consideration of carbapenem. Consulted ID for recommendations. 01/22: Yesterday the patient had an episode of ventricular tachycardia with a rate of 160, potassium level was noted to be 5.3. Emergently received sodium bicarbonate, D50 and insulin, Kayexalate, the patient has an indwelling AICD set to defibrillate at rate 171. A sodium bicarbonate infusion was instituted. No defibrillation was required. The patient then converted into atrial fibrillation with RVR, low 100s. Amiodarone was bolused and amiodarone continues to infuse. Heart rate during the night range from 90s to 110. The patient previously had been in hospice care with a DNR, which have been rescinded for this hospitalization. Palliative care was consulted yesterday and extensive discussion with the family resulted in decision of an alternate CODE STATUS with ACLS medications only. AICD was interrogated and turned off. GI was consulted regarding patient's transaminitis,liver US and labs are pending. The patient continues to be oliguric with 650 cc urine output in 24 hours. Nephrology has been consulted for recommendations. 01/23: Per nephrology the patient is not a candidate for dialysis, discussed with Dr. Cunningham. Creatinine improved today, will discontinue sodium bicarbonate infusion, calcium level now within normal limits. ID is following, antibiotics have been discontinued. Cardiology no interventions plan, they have signed off. Extensive of discussion with the family. Palliative is following should plan for transfer to hospice possibly on Tuesday as no further interventions are planned. 01/24: palliative saw patient again. patient's family continues to want aggressive care. Cr only slightly improved, and patient persists in gross volume overload. bumex still on hold per nephrology. patient denies complaints. family asking if we can apply any dressings to bullae. 01/25: remains stable. Cr worse today. bumex restarted per nephrology and mivf stopped. nephrology guiding volume management given worsening PREMA. palliative talking with family again today. 02/01: reconsulted for Halicat for hypotension. 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 She has had a declining course. Multiple consultants have recommended hospice. She rapid responses for hypotension and obtundation. She is a DNI with no chest compressions, only ACLS drugs. I evaluated the patient, she is unresponsive, and hypotensive with sbp 68 and a map 40 mmHg. she has very obvious JVD above the level of the mandible. she has peripheral edema. Family continues to want aggressive measures including vasopressors if indicated. She needs to be in an ICU setting. Unfortunately, despite our best efforts, patient went into PEA arrest. Code blue was called congruent with her wishes to continue aggressive measures. She had previously expressed goals of no CPR or intubation, so only ACLS drugs were administered. please see separately documented code sheet for details. Patient at 16:55. Dale Lea MD Feb 01, 2017 17:11
--- NOTE | 2017-02-01 18:10 | HHI.HCPN ---
Reason for visit a. To assist with evaluation and management of symptoms including: Confusion , debility, poor appetite, pain b. To assist medical decision maker(s) with: better understanding of current medical conditions; weighing benefits/burdens of medical treatment options; making medical treatment decisions. . Subjective/Interval History Patient was seen and assessed in room 251. Patient has continued to deteriorate with intermittent tachycardia and tachypnea throughout the day. A Halicat was called this afternoon for hypotension with a systolic blood pressure of 68. Dr. Lea (supervisor dry paste), Dr. Taylor (attending), respiratory therapy, for an worse and critical care nurse are at the patient's bedside. Multiple consultants have recommended hospice and hospice was consulted last week on 01/27/2017, but the family was not ready to transition to comfort focus care. HR 114, respirations 37, BP 46/34. Palliative care met the patient's family in the hallway.She is an ALTERNATE CODE at this time; ACLS medications only. Discussed with family who confirmed ALTERNATE CODE STATUS, but want vasopressors if indicated. Patient is non- responsive with agonal respirations; being transferred to [facility]. Family was escorted to the 2nd floor waiting room, awaiting phone from [facility] nurse. Patient appears to be actively dying. Palliative care present providing ongoing support and active listening. . Advance Directives Advance Directive Specifics Documented care wishes: Patient's family states the patient completed her "5 wishes", but it cannot be found at this time. No living will was completed. . Objective Vital Signs Date Time Temp Pulse Resp B/P Pulse Ox O2 Delivery O2 Flow Rate FiO2 02/01/17 15:00 46/34 02/01/17 14:55 77/39 02/01/17 14:55 Automatic Cuff 02/01/17 14:53 100.5 96 40 60/42 97 02/01/17 14:00 115 02/01/17 13:00 110 02/01/17 12:00 122 02/01/17 12:00 102/38 02/01/17 11:00 97.9 123 25 79/47 97 02/01/17 11:00 114 02/01/17 10:20 97 Nasal Cannula 3.00 02/01/17 10:00 110 02/01/17 09:00 120 02/01/17 08:00 97.9 110 18 109/57 100 02/01/17 08:00 120 02/01/17 08:00 100 Nasal Cannula 3.00 02/01/17 07:00 137 02/01/17 06:00 144 02/01/17 05:00 142 02/01/17 04:00 124 02/01/17 03:00 143 02/01/17 03:00 97.2 143 30 83/53 97 02/01/17 02:30 89/55 02/01/17 02:00 142 02/01/17 02:00 88/54 02/01/17 01:00 142 02/01/17 00:30 98.9 144 26 106/57 98 02/01/17 00:00 144 01/31/17 23:00 143 01/31/17 22:00 128 01/31/17 21:00 140 01/31/17 19:00 98 Nasal Cannula 3.00 01/31/17 19:00 97.4 142 24 105/54 98 01/31/17 19:00 90 01/31/17 18:00 90 Intake & Output 02/01/17 02/01/17 07:00 19:00 Intake Total 120 ml Output Total 350 ml Balance -230 ml Intake Oral 120 ml Output Urine Total 350 ml . Physical Exam CONSTITUTIONAL/GENERAL: This is a frail, elderly female patient in acute distress being transferred to [facility] TUBES/LINES/DRAINS: PIV, SCD, Cavanaugh catheter, nasal cannula SKIN: No jaundice, rashes, or lesions. Open areas on forearms bilaterally. Skin temperature appropriate. Not diaphoretic. . CARDIOVASCULAR: Irregularly irregular. + JVD. Extremities cool to touch. RESPIRATORY/CHEST: Agonal breathing. Breath sounds diminished bilaterally. GASTROINTESTINAL: Abdomen soft, non-tender, nondistended. GENITOURINARY: Without palpable bladder distension. Cavanaugh catheter in place, scant urine output NEUROLOGICAL: Unresponsive PSYCHIATRIC: No obvious anxiety/depression/ flat affect. . Diagnostic Tests Laboratory Laboratory Tests Test 01/30/17 01/30/17 01/31/17 02/01/17 04:27 04:42 05:00 02:08 Sodium Level 133 MEQ/L 138 MEQ/L 137 MEQ/L (136-145) (136-145) (136-145) Potassium Level 3.6 MEQ/L 3.1 MEQ/L 4.1 MEQ/L (3.5-5.1) (3.5-5.1) (3.5-5.1) Chloride Level 90 MEQ/L 92 MEQ/L 94 MEQ/L (98-107) (98-107) (98-107) Carbon Dioxide Level 31.2 MEQ/L 30.5 MEQ/L 28.0 MEQ/L (21.0-32.0) (21.0-32.0) (21.0-32.0) Anion Gap 12 MEQ/L (5-15) 16 MEQ/L (5-15) 15 MEQ/L (5-15) Blood Urea Nitrogen 92 MG/DL (7-18) 106 MG/DL 109 MG/DL (7-18) (7-18) Creatinine 2.25 MG/DL 2.37 MG/DL 2.23 MG/DL (0.50-1.00) (0.50-1.00) (0.50-1.00) Estimat Glomerular Filtration 26 ML/MIN (>89) 25 ML/MIN (>89) 26 ML/MIN (>89) Rate Random Glucose 167 MG/DL 172 MG/DL 180 MG/DL (74-106) (74-106) (74-106) Calcium Level 9.6 MG/DL 9.2 MG/DL 9.2 MG/DL (8.5-10.1) (8.5-10.1) (8.5-10.1) Total Bilirubin 2.7 MG/DL (0.2-1.0) Direct Bilirubin 1.3 MG/DL (0.0-0.2) Indirect Bilirubin 1.4 MG/DL (0.0-0.8) Aspartate Amino Transf 78 U/L (15-37) (AST/SGOT) Alanine Aminotransferase 188 U/L (10-53) (ALT/SGPT) Alkaline Phosphatase 219 U/L (45-117) Total Protein 6.4 GM/DL (6.4-8.2) Albumin 2.8 GM/DL (3.4-5.0) White Blood Count 11.4 TH/MM3 8.7 TH/MM3 6.6 TH/MM3 (4.0-11.0) (4.0-11.0) (4.0-11.0) Red Blood Count 4.80 MIL/MM3 4.52 MIL/MM3 4.73 MIL/MM3 (4.00-5.30) (4.00-5.30) (4.00-5.30) Hemoglobin 15.2 GM/DL 14.3 GM/DL 14.8 GM/DL (11.6-15.3) (11.6-15.3) (11.6-15.3) Hematocrit 46.6 % 43.6 % 45.6 % (35.0-46.0) (35.0-46.0) (35.0-46.0) Mean Corpuscular Volume 97.1 FL 96.4 FL 96.4 FL (80.0-100.0) (80.0-100.0) (80.0-100.0) Mean Corpuscular Hemoglobin 31.8 PG 31.6 PG 31.2 PG (27.0-34.0) (27.0-34.0) (27.0-34.0) Mean Corpuscular Hemoglobin 32.7 % 32.8 % 32.4 % Concent (32.0-36.0) (32.0-36.0) (32.0-36.0) Red Cell Distribution Width 25.6 % 26.4 % 25.6 % (11.6-17.2) (11.6-17.2) (11.6-17.2) Platelet Count 50 TH/MM3 66 TH/MM3 58 TH/MM3 (150-450) (150-450) (150-450) Mean Platelet Volume 10.2 FL 10.8 FL 10.9 FL (7.0-11.0) (7.0-11.0) (7.0-11.0) Neutrophils (%) (Auto) 84.2 % (16.0-70.0) Lymphocytes (%) (Auto) 4.8 % (9.0-44.0) Monocytes (%) (Auto) 10.0 % (0.0-8.0) Eosinophils (%) (Auto) 0.9 % (0.0-4.0) Basophils (%) (Auto) 0.1 % (0.0-2.0) Neutrophils # (Auto) 5.6 TH/MM3 (1.8-7.7) Lymphocytes # (Auto) 0.3 TH/MM3 (1.0-4.8) Monocytes # (Auto) 0.7 TH/MM3 (0-0.9) Eosinophils # (Auto) 0.1 TH/MM3 (0-0.4) Basophils # (Auto) 0.0 TH/MM3 (0-0.2) CBC Comment AUTO DIFF Differential Total Cells 100 Counted Neutrophils % (Manual) 31 % (16-70) Band Neutrophils % 44 % (0-6) Lymphocytes % 3 % (9-44) Monocytes % 5 % (0-8) Neutrophils # (Manual) 6.1 TH/MM3 (1.8-7.7) Metamyelocytes 13 % (0-1) Myelocytes 4 % (0-0) Differential Comment FINAL DIFF MANUAL Toxic Vacuolation PRESENT (NONE SEEN) Dohle Bodies PRESENT (NONE SEEN) Platelet Estimate LOW (NORMAL) Platelet Morphology Comment NORMAL (NORMAL) Basophilic Stippling FAINT (NORMAL) Ovalocytes 1+ (NORMAL) Phosphorus Level 4.9 MG/DL (2.5-4.9) Magnesium Level 2.2 MG/DL (1.5-2.5) Test 02/01/17 04:48 Sodium Level 138 MEQ/L (136-145) Potassium Level 4.0 MEQ/L (3.5-5.1) Chloride Level 93 MEQ/L (98-107) Carbon Dioxide Level 28.9 MEQ/L (21.0-32.0) Anion Gap 16 MEQ/L (5-15) Blood Urea Nitrogen 111 MG/DL (7-18) Creatinine 2.38 MG/DL (0.50-1.00) Estimat Glomerular Filtration 24 ML/MIN (>89) Rate Random Glucose 179 MG/DL (74-106) Calcium Level 9.2 MG/DL (8.5-10.1) Magnesium Level 2.3 MG/DL (1.5-2.5) . Result Diagram: 02/01/17 0208 02/01/17 0448 Imaging Last 72 hours Impressions Abdomen X-Ray 01/31/17 0000 Signed Impressions: Service Date/Time: Tuesday, January 31, 2017 13:08 - CONCLUSION: Unremarkable study except for stool. K. Viet Hernandes MD . Assessment and Plan Disease Oriented Problem List: (1) Atrial flutter (2) Cardiomyopathy (3) Cardiac LV ejection fraction 10-20% (4) Acute kidney injury (5) History of CVA (cerebrovascular accident) (6) Elevated troponin (7) Transaminitis (8) Hypertension (9) CHF (congestive heart failure) (10) COPD (chronic obstructive pulmonary disease) (11) Severe sepsis with acute organ dysfunction Symptom Scale: (1) Poor appetite (2) Debility 0-10 Scale: Unable to quantify (3) Confusion 0-10 Scale: Unable to quantify (4) Pain 0-10 Scale: Unable to quantify Pertinent Non-Medical Issues Psychosocial: Patient is single and lives alone in [place]. She has a high school education. 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 Patient had 2 daughters and 1 son; her son had ESRD and is . Spiritual: Catholic sanya Legal: Per [place] statutes, in the absence of written advanced directives healthcare proxy decision-making falls to the children's 2 adult daughters, Isa Ethical issues impacting care: No known ethical issues impacting care. . Important Contacts Lissette Salinas, daughter: [phone] Triny Amor, daughter: [phone] . Prognosis Ms. Salinas is a 71 yo female with a complicated medical history that includes severe cardiomyopathy with EF 20%. Status post CVA with right-sided hemiparesis and aphasia and October,. The patient has experienced an acute decline, hospitalized 5 times in the past 3 months. Patient is deconditioned with ongoing complications. Currently hospitalized with and multi-system organ dysfunction. Prognosis is poor. . Code Status: Alternative Code (ACLS medications only) Plan * ALTERNATE CODE- ACLS medications only * Decision-making: Per [place] statutes, in the absence of written advanced directives healthcare proxy decision-making falls to the patient's 2 adult daughters (Triny and Lissette). * Pacemaker/AICD deactivated 01/22/2017 * Multiple consultants have recommended hospice and hospice was consulted last week on 01/27/2017, but the family was not ready to transition to comfort focus care. * Patient has continued to deteriorate with intermittent tachycardia and tachypnea throughout the day. A Halicat was called this afternoon for hypotension with a systolic blood pressure of 68. Dr. Lea (supervisor dry paste), Dr. Taylor (attending), respiratory therapy, for an worse and critical care nurse are at the patient's bedside.Patient remains an ALTERNATE CODE - ACLS medications only. Discussed with family who confirmed ALTERNATE CODE STATUS; the family is amenable vasopressors if indicated. * Family was escorted to the 2nd floor waiting room, awaiting phone from [facility] nurse. Patient appears to be actively dying. Palliative care present providing ongoing support and active listening. * Palliative care will continue to follow this patient throughout her hospitalization to establish trust, assist with symptom management and clarification of medical treatment goals. . Attestation To help prompt me to consider important information that might be impacting today's encounter and assessment, information from prior notes written by myself or my colleagues may have been "brought forward" into today's note. My signature on this note, however, is an attestation that I personally performed the exam, history, and/or decision-making noted today, and, unless otherwise indicated, the interactions with patient, family, and staff as well as the review of records all occurred today. I also attest that the listed assessment and stated plan reflect my best clinical judgment today based on the combination of historical information, prior notes, and today's exam/ interactions. When time spent is documented, it refers only to time spent today by the signer, or if indicated, combined time spent today by collaborating physician/nurse practitioner. . Pita Mccartney Feb 01, 2017 18:09
[2017-02-02] MEDS ORDERED: BUMETANIDE 1 MG TAB PO SCH (09:00)
== END 2017-02-01 16:55 | disposition expired | DRG 871 ==
LOC: NEPE 15:38 → NEDA 18:16 → HIME 22:35 → HCIS 01-25 17:37 → HIMN 02-01 15:20
PROVIDERS: ADMIT Internal Medicine; ATTEND Internal Medicine
DX: A41.9 Sepsis, unspecified organism (principal); I21.4 Non-ST elevation (NSTEMI) myocardial infarction; N17.0 Acute kidney failure with tubular necrosis; R57.0 Cardiogenic shock; K72.00 Acute and subacute hepatic failure without coma; I50.23 Acute on chronic systolic (congestive) heart failure; G93.41 Metabolic encephalopathy; J69.0 Pneumonitis due to inhalation of food and vomit; I47.2 Ventricular tachycardia; N18.3 Chronic kidney disease, stage 3 (moderate); K83.8 Other specified diseases of biliary tract; E87.2 Acidosis; N17.9 Acute kidney failure, unspecified; I13.0 Hypertensive heart and chronic kidney disease with heart failure and stage 1 through stage 4 chronic kidney disease, or unspecified chronic kidney disease; I42.0 Dilated cardiomyopathy; I48.92 Unspecified atrial flutter; I69.351 Hemiplegia and hemiparesis following cerebral infarction affecting right dominant side; E87.1 Hypo-osmolality and hyponatremia; I47.1 Supraventricular tachycardia; E46 Unspecified protein-calorie malnutrition; K76.1 Chronic passive congestion of liver; D69.6 Thrombocytopenia, unspecified; J44.9 Chronic obstructive pulmonary disease, unspecified; R13.10 Dysphagia, unspecified; E11.22 Type 2 diabetes mellitus with diabetic chronic kidney disease; R65.20 Severe sepsis without septic shock; E87.5 Hyperkalemia; I25.10 Atherosclerotic heart disease of native coronary artery without angina pectoris; E83.39 Other disorders of phosphorus metabolism; E83.41 Hypermagnesemia; R62.7 Adult failure to thrive; I69.391 Dysphagia following cerebral infarction; E78.5 Hyperlipidemia, unspecified; E11.649 Type 2 diabetes mellitus with hypoglycemia without coma; I69.320 Aphasia following cerebral infarction; I25.2 Old myocardial infarction; I48.91 Unspecified atrial fibrillation; R14.0 Abdominal distension (gaseous); E87.6 Hypokalemia; K59.00 Constipation, unspecified; I27.81 Cor pulmonale (chronic); G47.00 Insomnia, unspecified; F32.9 Major depressive disorder, single episode, unspecified; Z68.24 Body mass index [BMI] 24.0-24.9, adult; Z79.01 Long term (current) use of anticoagulants; Z79.84 Long term (current) use of oral hypoglycemic drugs; Z82.3 Family history of stroke; Z95.5 Presence of coronary angioplasty implant and graft; Z95.810 Presence of automatic (implantable) cardiac defibrillator
CPT/HCPCS: 36600; 36620; 70450; 71010; 71250; 74000; 74176; 76705; 76937; 80048; 80053; 80074; 80076; 80202; 81001; 82010; 82140; 82533; 82550; 82570; 82805; 82948; 83520; 83605; 83690; 83735; 83880; 83930; 83935; 84100; 84132; 84295; 84300; 84443; 84484; 84550; 85007; 85025; 85027; 85384; 85610; 85730; 86038; 86256; 87040; 87086; 87205; 87641; 87804; 93005; 93308; 93970; 93971; 94150; 94640; 94664; 96361; 96365; 96374; 96375; C9113; J0282; J0610; J1205; J1815; J1940; J2270; J2543; J3370; J3473; J7030; J7040; J7042; J7050; J7060; J7070; P9612